=== PATIENT | female | born 1980 | race Caucasian/White ===

== ENCOUNTER 2016-11-04 06:52 | Emergency (ER) | payer MEDICAID, OTHER ==
[2016-11-04] MEDS ORDERED: LORazepam 2 MG/ML SYRINGE IV STA (07:25)
[2016-11-04] MEDS ORDERED: SODIUM CHLORIDE 0.9% 500 ML IV STA (07:26)
[2016-11-04] MEDS ORDERED: SODIUM CHLORIDE 0.9% 1,000 ML IV STA ×2 (07:26)
[2016-11-04] MEDS ORDERED: ONDANSETRON 4 MG/2 ML VIAL IVP STA (07:26)
--- NOTE | 2016-11-04 07:28 | ED ---
General Adult HPI - General Chief complaint: Seizure Stated complaint: seizure Time Seen by Provider: 11/04/16 07:10 Source: patient, EMS, RN notes reviewed, old records reviewed Mode of arrival: EMS - History of Present Illness Initial comments: This is a 28-year-old female ER for evaluation of seizure. Patient has no no medical history except for asthma but takes no daily or chronic medications. Has recently been taking [place] for her elbow pain but not in excess. Patient states she woke up and ate something this morning was feeling fine prior. Patient no recent diarrheal illness, no recent nausea vomiting or recent fevers. Patient denies headache or neck pain. Denies alcohol. At this time aside from nausea denies any complaints - Related Data Allergies Allergy/AdvReac Type Severity Reaction Status Date / Time codeine AdvReac Nausea & Verified 11/04/16 07:30 Vomiting Penicillins AdvReac Nausea & Verified 11/04/16 07:30 Vomiting Sulfa (Sulfonamide AdvReac Nausea & Verified 11/04/16 07:30 Antibiotics) Vomiting Review of Systems ROS Statement: Those systems with pertinent positive or pertinent negative responses have been documented in the HPI. ROS Other: All systems not noted in ROS Statement are negative. Past Medical History Past Medical History: Asthma History of Any Multi-Drug Resistant Organisms: None Reported Past Surgical History: No Surgical Hx Reported Past Psychological History: No Psychological Hx Reported Smoking Status: Never smoker Past Alcohol Use History: None Reported Past Drug Use History: None Reported General Exam General appearance: alert, in no apparent distress Head exam: Present: atraumatic, normocephalic, normal inspection Eye exam: Present: normal appearance, PERRL, EOMI. Absent: scleral icterus, conjunctival injection, periorbital swelling ENT exam: Present: normal exam, mucous membranes moist Neck exam: Present: normal inspection. Absent: tenderness, meningismus, lymphadenopathy Respiratory exam: Present: normal lung sounds bilaterally. Absent: respiratory distress, wheezes, rales, rhonchi, stridor Cardiovascular Exam: Present: regular rate, normal rhythm, normal heart sounds. Absent: systolic murmur, diastolic murmur, rubs, gallop, clicks GI/Abdominal exam: Present: soft, normal bowel sounds. Absent: distended, tenderness, guarding, rebound, rigid Extremities exam: Present: normal inspection, full ROM, normal capillary refill. Absent: tenderness, pedal edema, joint swelling, calf tenderness Back exam: Present: normal inspection Neurological exam: Present: alert, oriented X3, CN II-XII intact Psychiatric exam: Present: normal affect, normal mood Skin exam: Present: warm, dry, intact, normal color. Absent: rash Course Vital Signs 11/04/16 06:56 Temperature 98.3 F Pulse Rate 96 Respiratory 14 Rate Blood Pressure 134/86 O2 Sat by Pulse 97 Oximetry - Reevaluation(s) Reevaluation #1: 11/04/16 08:47 Patient without seizure activity and ER Reevaluation #2: 11/04/16 08:47 Spoke with patient counseled greater than 15 minutes. Protocol procedures, no reason for admission at this time patient has had EEG multiple CAT scans, patient will follow-up with her neurologist EKG Findings - EKG Comments: EKG Findings:: EKG shows normal sinus rhythm rate of 98, IA 142, QRS 80, QTC 469 Medical Decision Making - Medical Decision Making 36 female here for evaluation of seizure, patient did have grand mal seizure earlier today with with a postictal period, per bystanders patient's seizure was generalized with foaming at the mouth, patient also urinated herself, patient CT is negative lab work is normal, patient is follow-up with Dr. Salgado on an outpatient basis regarding headaches migraines, patient will continue follow-up with Dr. Acuna in regards to new symptoms. - Lab Data Result diagrams: 11/04/16 07:21 11/04/16 07:21 Lab Results 11/04/16 11/04/16 Range/Units 07:21 07:21 WBC 9.6 (3.8-10.6) k/uL RBC 4.87 (3.80-5.40) m/uL Hgb 14.5 (11.4-16.0) gm/dL Hct 43.4 (34.0-46.0) % MCV 89.0 (80.0-100.0) fL MCH 29.7 (25.0-35.0) pg MCHC 33.4 (31.0-37.0) g/dL RDW 12.4 (11.5-15.5) % Plt Count 248 (150-450) k/uL Neutrophils % 68 % Lymphocytes % 22 % Monocytes % 6 % Eosinophils % 2 % Basophils % 1 % Neutrophils # 6.5 (1.3-7.7) k/uL Lymphocytes # 2.1 (1.0-4.8) k/uL Monocytes # 0.6 (0-1.0) k/uL Eosinophils # 0.1 (0-0.7) k/uL Basophils # 0.1 (0-0.2) k/uL Sodium 136 L (137-145) mmol/L Potassium 4.6 (3.5-5.1) mmol/L Chloride 102 (98-107) mmol/L Carbon Dioxide 19 L (22-30) mmol/L Anion Gap 15 mmol/L BUN 11 (7-17) mg/dL Creatinine 0.46 L (0.52-1.04) mg/dL Est GFR (MDRD) Af Amer >60 (>60 ml/min/1.73 sqM) Est GFR (MDRD) Non-Af >60 (>60 ml/min/1.73 sqM) Glucose 343 H (74-99) mg/dL Calcium 9.6 (8.4-10.2) mg/dL Phosphorus 3.1 (2.5-4.5) mg/dL Magnesium 1.6 (1.6-2.3) mg/dL Total Bilirubin 0.5 (0.2-1.3) mg/dL AST 21 (14-36) U/L ALT 31 (9-52) U/L Alkaline Phosphatase 75 (38-126) U/L Total Protein 6.8 (6.3-8.2) g/dL Albumin 4.0 (3.5-5.0) g/dL Salicylates <1.0 mg/dL Acetaminophen <10.0 ug/mL Serum Alcohol <10 mg/dL - Radiology Data Radiology results: report reviewed (CT brain negative for acute disease), image reviewed Disposition Clinical Impression: New onset seizure Disposition: HOME SELF-CARE Condition: Good Instructions: New-Onset Seizure in Adults (ED) Referrals: Rivera Tripp DO [Primary Care Provider] - 1-2 days
[2016-11-04 07:46] LABS: Basophils # (A) 0.1 k/uL (0-0.2); Basophils % (A) 1 %; CH 30.4; CHCM 34.3; Eosinophils # (A) 0.1 k/uL (0-0.7); Eosinophils % (A) 2 %; HCT 43.4 % (34.0-46.0); HDW 2.76; HGB 14.5 gm/dL (11.4-16.0); Luc # (Auto) 0.26; Luc % (Auto) 3; Lymphocytes # (A) 2.1 k/uL (1.0-4.8); Lymphocytes % (A) 22 %; MCH 29.7 pg (25.0-35.0); MCHC 33.4 g/dL (31.0-37.0); Mean Platelet Volume 7.5; Monocytes # (A) 0.6 k/uL (0-1.0); Monocytes % (A) 6 %; Neutrophils # (A) 6.5 k/uL (1.3-7.7); Neutrophils % (A) 68 %; RBC 4.87 m/uL (3.80-5.40); RDW 12.4 % (11.5-15.5); WBC 9.6 k/uL (3.8-10.6); WBC (Perox) 9.91
[2016-11-04 07:58] LABS: ALT 31 U/L (9-52); AST 21 U/L (14-36); Acetaminophen <10.0 ug/mL; Alcohol <10 mg/dL; Alkaline Phosphatase 75 U/L (38-126); Anion Gap 15 mmol/L; Blood Urea Nitrogen 11 mg/dL (7-17); Calcium 9.6 mg/dL (8.4-10.2); Carbon Dioxide 19 mmol/L (22-30); Chloride 102 mmol/L (98-107); Glucose 343 mg/dL (74-99); Magnesium 1.6 mg/dL (1.6-2.3); Non-African American GFR(MDRD) >60 (>60 ml/min/1.73 sqM); Phosphorous 3.1 mg/dL (2.5-4.5); Potassium 4.6 mmol/L (3.5-5.1); Salicylate <1.0 mg/dL; Sodium 136 mmol/L (137-145); Total Bilirubin 0.5 mg/dL (0.2-1.3); Total Protein 6.8 g/dL (6.3-8.2)
--- NOTE | 2016-11-04 08:24 | CT ---
EXAMINATION TYPE: CT brain wo con DATE OF EXAM: 11/04/2016 8:08 AM COMPARISON: Prior head CT 17 August 2013 HISTORY: Seizure activity CT DLP: 1186 mGycm Automated exposure control for dose reduction was used. FINDINGS: There is no acute intracranial hemorrhage, mass effect, or midline shift identified. The ventricles and sulci are within normal limits in size. The globes are intact and the visualized sinuses are padmaja ar. IMPRESSION: No acute intracranial hemorrhage, mass effect, or midline shift is seen.
[2016-11-04 08:53] VITALS: BP 117/78; PULSE 98; RESP 18; TEMP 97.4
[2016-11-05 16:59] LABS: Hemoglobin A1C 10.8 % (4.2-6.1)
== END 2016-11-04 08:59 | disposition home or self-care (01) ==
LOC: EC 06:52
DX: G40.409 Other generalized epilepsy and epileptic syndromes, not intractable, without status epilepticus (principal)
CPT/HCPCS: 36415; 93005; 80053; 83036; 83735; 84100; 85025; 83520 ×2; 80320; 70450; 99285; 96374; 96375; 96361; J2060; J2405

== ENCOUNTER → 2016-11-13 | Outpatient (CLI) | payer MEDICAID, OTHER ==
--- NOTE | 2016-11-13 12:07 | ECHOF ---
Referral Reason:G40.909 seizures R94.31 abn ekg MEASUREMENTS -------- HEIGHT: 157.5 cm WEIGHT: 77.1 kg BP: RVIDd: 2.8 cm (< 3.3) IVSd: 1.0 cm (0.6 - 1.1) LVIDd: 4.0 cm (3.9 - 5.3) LVPWd: 1.4 cm (0.6 - 1.1) IVSs: 1.2 cm LVIDs: 3.0 cm LVPWs: 1.4 cm LA Diam: 3.6 cm (2.7 - 3.8) LAESV Index (A-L): 16.61 ml/m Ao Diam: 2.9 cm (2.0 - 3.7) AV Cusp: 1.8 cm (1.5 - 2.6) LA Diam: 3.4 cm (2.7 - 3.8) MV EXCURSION: 21.562 mm (> 18.000) MV EF SLOPE: 95 mm/s (70 - 150) EPSS: 0.6 cm MV E Camacho: 0.64 m/s MV DecT: 209 ms MV A Camacho: 0.86 m/s MV E/A Ratio: 0.74 RAP: 5.00 mmHg RVSP: 9.25 mmHg FINDINGS -------- Sinus rhythm. This was a technically good study. LV size, wall thickness and systolic function are normal, with an EF greater than 55%. The right ventricle is normal in size. Normal LA size by volume 22+/-6 ml/m2. The right atrial size is normal. There is mild aortic valve sclerosis. There is no evidence of aortic regurgitation. Mild mitral annular calcification present. Mild mitral regurgitation is present. Mild tricuspid regurgitation present. There is no evidence of pulmonary hypertension. The right ventricular systolic pressure, as measured by Doppler, is 9.25mmHg. Trace/mild (physiologic) pulmonic regurgitation. The aortic root size is normal. There is no pericardial effusion. CONCLUSIONS -------- 1. LV size, wall thickness and systolic function are normal, with an EF greater than 55%. 2. There is no pericardial effusion. 3. There is mild aortic valve sclerosis. 4. Mild mitral annular calcification present. 5. Mild mitral regurgitation is present. 6. Mild tricuspid regurgitation present. 7. There is no evidence of pulmonary hypertension. 8. The right ventricular systolic pressure, as measured by Doppler, is 9.25mmHg. 9. Trace/mild (physiologic) pulmonic regurgitation. 10. The aortic root size is normal. SHELF STOCKER: Cathy Hoskins RDCS
--- NOTE | 2016-11-13 12:26 | EST ---
DATE OF SERVICE: 11/13/2016 AGE: 36Y SEX: F HT: 72 WT: 152 lbs. Protocol Tato: X Other: Stage: III Dur. of Exercise: 7:45 *Heart Rate Blood Pressure *Rest: 96 Rest: 108/84 * *Max. Achieved: 162 Maximum BP: 197/100 85% PMHR: 155 100% PMHR: 182 *METS: 7.7 INDICATIONS: Seizure. MEDICATIONS: Baby aspirin. Patient was exercised for a total period of 7 minutes and 45 seconds. Peak heart rate of 162 was achieved. Maximum blood pressure of 197/100 mmHg was noted. Resting EKG shows normal sinus rhythm with normal ND interval and QRS duration and normal ST-T waves. No ST segment depression suggestive of ischemia is noted. No dysrhythmias are noted. FINAL IMPRESSION: This exercise test is not suggestive of ischemia. No dysrhythmias are noted. Patient's exercise tolerance is average.
--- NOTE | 2016-11-13 14:13 | US ---
EXAMINATION TYPE: US carotid duplex BILAT DATE OF EXAM: 11/13/2016 12:40 PM COMPARISON: NONE CLINICAL HISTORY: G40.909 seizures R94.31 abn ekg. EXAM MEASUREMENTS: RIGHT: Peak Systolic Velocity (PSV) cm/sec ----- Right CCA: 89.2 ----- Right ICA: 87.6 ----- Right ECA: 123.8 ICA/CCA ratio: 1.0 RIGHT: End Diastole cm/sec ----- Right CCA: 32.3 ----- Right ICA: 35.8 ----- Right ECA: 23.6 LEFT: Peak Systolic Velocity (PSV) cm/sec ----- Left CCA: 85.4 ----- Left ICA: 104.4 ----- Left ECA: 117.4 ICA/CCA ratio: 1.2 LEFT: End Diastole cm/sec ----- Left CCA: 28.5 ----- Left ICA: 41.4 ----- Left ECA: 18.8 VERTEBRALS (direction of flow): Right Vertebral: antegrade Left Vertebral: antegrade TECHNOLOGIST IMPRESSION: Tiny piece of calcified plaque left bulb. Some soft plaque noted L>R Grayscale, color Doppler, spectral Doppler imaging performed of the carotid arteries. Waveform analys is does not shows a significant stenosis of the proximal internal carotid arteries bilaterally by Dop pler criteria IMPRESSION: No hemodynamic significant stenosis of the proximal internal carotid arteries bilaterall y by Doppler criteria, and indirect measurement of carotid stenosis. Criteria for Assigning % of Stenosis / Diameter reduction (Estimation based on the indirect measurements of the internal carotid artery velocities (ICA PSV). 1. Normal (no stenosis)=ICA PSV < 125 cm/s: ratio < 2.0: ICA EDV<40 cm/s. 2. Less than 50% stenosis=ICA PSV < 125 cm/s: ratio < 2.0: ICA EDV<40 cm/s. 3. 50 to 69% stenosis=ICA PSV of 125 to 230 cm/s: ration 2.0 ? 4.0: ICA EDV 40-100 cm/s. 4. Greater than 70% stenosis to near occlusion= ICA PSV > 230 cm/s: ratio > 4.0: ICA EDV > 100 cm/s. 5. Near occlusion= ICA PSV velocities may be low or undetectable: variable ratio and ICA EDV. 6. Total occlusion=unable to detect flow.
== END | disposition home or self-care (01) ==
LOC: RADNMMAIN 10:19
PROVIDERS: ATTEND Family Medicine
DX: I08.8 Other rheumatic multiple valve diseases (principal); G40.909 Epilepsy, unspecified, not intractable, without status epilepticus
CPT/HCPCS: 93017; 93270; 93271; 93306; 93880

== ENCOUNTER → 2016-11-23 | Outpatient (CLI) | payer MEDICAID, OTHER ==
--- NOTE | 2016-11-23 21:13 | MR ---
EXAMINATION TYPE: MR brain wo/w con DATE OF EXAM: 11/23/2016 9:06 PM COMPARISON: CT brain November 04, 2016. HISTORY: Seizure TECHNIQUE: Multiplanar, multisequence images of the brain and brainstem is performed without and with IV contras t, utilizing 13 mL intravenous MultiHance . FINDINGS: Diffusion weighted images demonstrate no evidence of a recent infarct or other diffusion ab normality. There is no extra-axial fluid collection or significant white matter signal abnormality. The ventricular system and cisternal spaces are normal in size and appearance. Cavum vergae is prese nt. The brain volume is age appropriate. T2 coronal weighted images show hippocampal gyri to appear s ymmetric and felt within normal limits. Midline structures demonstrate normal morphology. The craniocervical junction appears within normal limits. Post contrast images demonstrate no abnormal enhancement. The dural venous sinuses appear pa tent. The visualized sinuses are clear and the globes are intact. IMPRESSION: No significant finding is seen to account for patient's symptoms.
== END | disposition home or self-care (01) ==
LOC: RADMRIMAIN 20:06
PROVIDERS: ATTEND Psychiatry & Neurology Neurology
DX: C71.0 Malignant neoplasm of cerebrum, except lobes and ventricles (principal); G40.009 Localization-related (focal) (partial) idiopathic epilepsy and epileptic syndromes with seizures of localized onset, not intractable, without status epilepticus
CPT/HCPCS: 70553; A9577

== ENCOUNTER 2017-04-17 09:37 | Day surgery (SDC) | payer MEDICAID, OTHER ==
[2017-04-15 09:41] VITALS: BMI 26.9
[~2017-04-17 09:37] MED LIST: LACTATED RINGERS 1,000 ML IV SCH; LIDOCAINE 1% 20 ML VIAL (10MG/ML) FOR IV START INTRADERMA PRN
[2017-04-17 09:50] VITALS: RESP 18; TEMP 97.1
[2017-04-17 10:04] LABS: Glucose,Whole Blood 128 mg/dL (75-99)
[2017-04-17] MEDS ORDERED: PROPOFOL 10 MG/ML 20 ML VIAL IV ONE (10:38)
--- NOTE | 2017-04-17 11:05 | P.GSHP ---
History of Present Illness H&P Date: 04/17/17 Chief Complaint: gi bleed This a 37-year-old female referred from Dr. Rivera Tripp. Patient rents today for colonoscopy. She's had issues with GI bleed. Past Medical History Past Medical History: Asthma, Diabetes Mellitus, Seizure Disorder Additional Past Medical History / Comment(s): NEW ONSET SEIZURE ( HAD GRAND MAL SIZURE)-11/04/16-NO OTHER EPISODES SINCE THEN. RECENT BLOOD IN STOOL History of Any Multi-Drug Resistant Organisms: None Reported Past Surgical History: Section, Tubal Ligation Additional Past Surgical History / Comment(s): COLONOSCOPY Past Anesthesia/Blood Transfusion Reactions: No Reported Reaction Past Psychological History: No Psychological Hx Reported Smoking Status: Former smoker Past Alcohol Use History: None Reported, Rare Additional Past Alcohol Use History / Comment(s): QUIT SMOKING 2001 Past Drug Use History: None Reported - Past Family History Father Family Medical History: Cancer Additional Family Medical History / Comment(s): COLON, MELANOMA Mother Family Medical History: Cancer Additional Family Medical History / Comment(s): MELANOMA, BRAIN Medications and Allergies Home Medications Medication Instructions Recorded Confirmed Type Albuterol Inhaler [Ventolin Hfa 1 - 2 puff INHALATION Q6HR PRN 04/15/17 History Inhaler] Linagliptin [Tradjenta] 5 mg PO DAILY 04/15/17 04/15/17 History Naproxen Sodium 550 mg PO DAILY PRN 04/15/17 04/15/17 History Topiramate [Topamax] 200 mg PO HS 04/15/17 04/15/17 History metFORMIN HCL [Glucophage] 1,000 mg PO HS 04/15/17 04/15/17 History metFORMIN HCL [Glucophage] 500 mg PO DAILY 04/15/17 04/15/17 History Allergies Allergy/AdvReac Type Severity Reaction Status Date / Time codeine AdvReac Nausea & Verified 04/15/17 09:32 Vomiting Penicillins AdvReac Nausea & Verified 04/15/17 09:32 Vomiting Sulfa (Sulfonamide AdvReac Nausea & Verified 04/15/17 09:32 Antibiotics) Vomiting Surgical - Exam Vital Signs Temp Pulse Resp BP Pulse Ox 97.1 F L 80 18 112/77 99 04/17/17 09:49 04/17/17 09:49 04/17/17 09:49 08/02/17 09:49 04/17/17 09:49 - General well developed, no distress - Eyes PERRL - ENT normal pinna - Neck no masses - Respiratory normal expansion - Cardiovascular Rhythm: regular - Abdomen Abdomen: soft, non tender Results - Labs Abnormal Lab Results - Last 24 Hours (Table) 04/17/17 Range/Units 09:55 POC Glucose (mg/dL) 128 H (75-99) mg/dL Assessment and Plan Plan: GI bleed. We'll perform colonoscopy.
--- NOTE | 2017-04-17 11:14 | P.OP ---
Date of Procedure: 04/17/17 Preoperative Diagnosis: GI bleed Postoperative Diagnosis: Mild diverticulosis Poor colon prep with large amount of stool Procedure(s) Performed: Colonoscopy Implants: Anesthesia: MAC Surgeon: Walter Acosta Pathology: none sent Condition: stable Disposition: PACU Indications for Procedure: Operative Findings: Description of Procedure: Patient's placed on the endoscopy table in the lateral position. She received IV sedation. Digital rectal exam was performed which revealed no abnormalities. The flexible colonoscope was then placed patient anus and passed throughout the entire colon. The the scope was placed in the right colon. There was a large amount of stool in the right colon preventing visualization of the ileocecal valve. At this point the scope was withdrawn. The view of the right colon was limited due to the large amount stool. There appeared to be no evidence of any abnormalities. The scope was then brought back the transverse colon this appeared normal however the view was limited due to the large amount stool. Scope summer back in the descending; was a few scattered diverticula. There is no evidence of any bleeding. And once again there was a large amount liquid stool. The scope was then brought back the rectum and a large amount stool prevented the visualization of the mucosa. There is no evidence of any any bleeding. The scope was then withdrawn from patient.
[2017-04-17 11:36] VITALS: BP 121/64; PULSE 72
== END 2017-04-17 11:59 | disposition home or self-care (01) ==
LOC: ORWHC2ENDO 09:37
PROVIDERS: ATTEND Surgery
DX: K57.30 Diverticulosis of large intestine without perforation or abscess without bleeding (principal); Z87.19 Personal history of other diseases of the digestive system; J45.909 Unspecified asthma, uncomplicated; E11.9 Type 2 diabetes mellitus without complications; G40.909 Epilepsy, unspecified, not intractable, without status epilepticus; Z87.891 Personal history of nicotine dependence; Z79.84 Long term (current) use of oral hypoglycemic drugs; Z79.899 Other long term (current) drug therapy; Z88.5 Allergy status to narcotic agent; Z88.0 Allergy status to penicillin; Z88.2 Allergy status to sulfonamides
CPT/HCPCS: 81025; 45378; J2704

== ENCOUNTER 2017-05-06 10:14 | Emergency (ER) | payer MEDICAID, OTHER ==
[2017-05-06] MEDS ORDERED: CLINDAMYCIN 600 MG in DEXTROSE 5% IN WATER 50 ML IVPB STA ×2 (11:10)
[2017-05-06] MEDS ORDERED: SODIUM CHLORIDE 0.9% 1,000 ML IV ONE (11:10)
[2017-05-06 11:43] LABS: Basophils # (A) 0.1 k/uL (0-0.2); Basophils % (A) 1 %; Eosinophils # (A) 0.1 k/uL (0-0.7); Eosinophils % (A) 1 %; HCT 38.8 % (34.0-46.0); HGB 12.7 gm/dL (11.4-16.0); Luc # (Auto) 0.21; Luc % (Auto) 2; Lymphocytes # (A) 1.3 k/uL (1.0-4.8); Lymphocytes % (A) 11 %; MCH 30.1 pg (25.0-35.0); MCHC 32.8 g/dL (31.0-37.0); MCV 91.6 fL (80.0-100.0); Mean Platelet Volume 8.2; Monocytes # (A) 0.6 k/uL (0-1.0); Monocytes % (A) 5 %; Neutrophils # (A) 9.8 k/uL (1.3-7.7); Neutrophils % (A) 81 %; RBC 4.23 m/uL (3.80-5.40); RDW 13.3 % (11.5-15.5); WBC 12.1 k/uL (3.8-10.6); WBC (Perox) 12.59
[2017-05-06 11:51] LABS: ALT 45 U/L (9-52); AST 24 U/L (14-36); Alkaline Phosphatase 81 U/L (38-126); Anion Gap 12 mmol/L; Blood Urea Nitrogen 16 mg/dL (7-17); Calcium 10.2 mg/dL (8.4-10.2); Carbon Dioxide 22 mmol/L (22-30); Chloride 103 mmol/L (98-107); Glucose 427 mg/dL (74-99); Non-African American GFR(MDRD) >60 (>60 ml/min/1.73 sqM); Potassium 4.7 mmol/L (3.5-5.1); Sodium 137 mmol/L (137-145); Total Bilirubin 0.4 mg/dL (0.2-1.3); Total Protein 6.9 g/dL (6.3-8.2)
--- NOTE | 2017-05-06 12:06 | ED ---
General Adult HPI - General Chief complaint: Skin/Abscess/Foreign Body Stated complaint: pain in leg Time Seen by Provider: 05/06/17 10:41 Source: patient, RN notes reviewed, old records reviewed Mode of arrival: ambulatory Limitations: no limitations - History of Present Illness Initial comments: 37-year-old female presents emergency Department chief complaint of increased pain and drainage and swelling from her incision site. Patient reports that she had a mole removed by Dr. Janine STEELE on last . Patient reports that she called her physician and he called her and an antibiotic. Patient states that she's been taking azithromycin and had the double dose yesterday and the first dose today. Patient reports that she was at work and noticed increased drainage and was concerned that this is getting worse. 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 She reports that she had a lesion removed because it was concern for skin cancer. She has a lengthy family history of melanoma. - Related Data Home Medications Medication Instructions Recorded Confirmed Albuterol Inhaler [Ventolin Hfa 1 - 2 puff INHALATION RT-Q6H PRN 04/15/17 Inhaler] Linagliptin [Tradjenta] 5 mg PO DAILY 04/15/17 05/06/17 Naproxen Sodium 550 mg PO DAILY PRN 04/15/17 05/06/17 Topiramate [Topamax] 200 mg PO HS 04/15/17 05/06/17 metFORMIN HCL [Glucophage] 1,000 mg PO HS 04/15/17 05/06/17 metFORMIN HCL [Glucophage] 500 mg PO DAILY 04/15/17 05/06/17 Azithromycin [Zithromax Z-pack] See Taper PO DIRECTED 05/06/17 05/06/17 HYDROcodone/APAP 10-325MG [Roca 1 tab PO Q6H PRN 05/06/17 05/06/17 10-325] Lidocaine 5% Oint [Xylocaine 5% 1 applic TOPICAL Q4H PRN 05/06/17 05/06/17 Oint] Previous Rx's Medication Instructions Recorded Clindamycin [Cleocin] 450 mg PO TID 10 Days 05/06/17 Allergies Allergy/AdvReac Type Severity Reaction Status Date / Time codeine AdvReac Nausea & Verified 05/06/17 10:44 Vomiting Penicillins AdvReac Nausea & Verified 05/06/17 10:44 Vomiting Sulfa (Sulfonamide AdvReac Nausea & Verified 05/06/17 10:44 Antibiotics) Vomiting tramadol AdvReac Unknown Verified 05/06/17 10:44 Review of Systems ROS Statement: Those systems with pertinent positive or pertinent negative responses have been documented in the HPI. ROS Other: All systems not noted in ROS Statement are negative. Past Medical History Past Medical History: Asthma, Diabetes Mellitus, Seizure Disorder Additional Past Medical History / Comment(s): NEW ONSET SEIZURE ( HAD GRAND MAL SIZURE)-11/04/16-NO OTHER EPISODES SINCE THEN. RECENT BLOOD IN STOOL History of Any Multi-Drug Resistant Organisms: None Reported Past Surgical History: Section, Tubal Ligation Additional Past Surgical History / Comment(s): COLONOSCOPY, mass removed right groin Past Anesthesia/Blood Transfusion Reactions: No Reported Reaction Past Psychological History: No Psychological Hx Reported Smoking Status: Former smoker Past Alcohol Use History: None Reported, Rare Past Drug Use History: None Reported - Past Family History Father Family Medical History: Cancer Additional Family Medical History / Comment(s): COLON, MELANOMA Mother Family Medical History: Cancer Additional Family Medical History / Comment(s): MELANOMA, BRAIN General Exam - General Exam Comments Initial Comments: This is a 37 year old female, no acute distress. Limitations: no limitations General appearance: alert, in no apparent distress Head exam: Present: atraumatic, normocephalic, normal inspection Eye exam: Present: normal appearance, PERRL, EOMI. Absent: scleral icterus, conjunctival injection, periorbital swelling ENT exam: Present: normal exam, mucous membranes moist Neck exam: Present: normal inspection. Absent: tenderness, meningismus, lymphadenopathy Respiratory exam: Present: normal lung sounds bilaterally. Absent: respiratory distress, wheezes, rales, rhonchi, stridor Cardiovascular Exam: Present: regular rate, normal rhythm, normal heart sounds. Absent: systolic murmur, diastolic murmur, rubs, gallop, clicks GI/Abdominal exam: Present: soft, normal bowel sounds. Absent: distended, tenderness, guarding, rebound, rigid External exam: Present: erythema (patient has a 7cm inscision over right mons pubis into inguinal ligament. Patient has purulent drainage from site. mild erythema surounding laceration extending 1cm. ). Absent: normal external exam Extremities exam: Present: normal inspection, full ROM, normal capillary refill. Absent: tenderness, pedal edema, joint swelling, calf tenderness Back exam: Present: normal inspection Neurological exam: Present: alert, oriented X3, CN II-XII intact Psychiatric exam: Present: normal affect, normal mood Skin exam: Present: warm, dry, intact, normal color. Absent: rash Course Vital Signs 05/06/17 05/06/17 10:14 13:19 Temperature 97.9 F 97.8 F Pulse Rate 117 H 88 Respiratory 18 16 Rate Blood Pressure 132/73 122/75 O2 Sat by Pulse 97 98 Oximetry Medical Decision Making - Medical Decision Making 37 year old female with incision site infection for 3 days. PAtient has had a mole removed by Dr. Hoang and patient was started on azithromycin the following day due to mild drainage. Patient reports that she was at work today, and the drainage and pain became worse. Patient has a 7 cm incision, and there is purulent drainage from some aspects of the laceration. Patient has been on Azithromycin for 2 days. Discussed Azithrromycin is not appropriate antibiotic coverage, as patient has history of MRSA. PAtient given IV fluids, and clindamycin given. Note it is noted the patient's blood sugar is elevated. She reports that she has not been taking her metformin over the past 3 days. Discussed that this is likely why she is having a worsening infection. His blood sugars have been elevated. Discussed the importance of having strict blood sugar control. Patient is given a dose of IV clindamycin in the emergency department due to patient's ALLERGIES and wanting to cover for MRSA. PAtient has been advised to follow up with Viktor and PCP, and discussed the importance of returing if symptoms progress or worsen. Patient was switched to clindamycin. - Lab Data Result diagrams: 05/06/17 11:29 05/06/17 11:29 Lab Results 05/06/17 05/06/17 Range/Units 11:29 11:29 WBC 12.1 H (3.8-10.6) k/uL RBC 4.23 (3.80-5.40) m/uL Hgb 12.7 (11.4-16.0) gm/dL Hct 38.8 (34.0-46.0) % MCV 91.6 (80.0-100.0) fL MCH 30.1 (25.0-35.0) pg MCHC 32.8 (31.0-37.0) g/dL RDW 13.3 (11.5-15.5) % Plt Count 262 (150-450) k/uL Neutrophils % 81 % Lymphocytes % 11 % Monocytes % 5 % Eosinophils % 1 % Basophils % 1 % Neutrophils # 9.8 H (1.3-7.7) k/uL Lymphocytes # 1.3 (1.0-4.8) k/uL Monocytes # 0.6 (0-1.0) k/uL Eosinophils # 0.1 (0-0.7) k/uL Basophils # 0.1 (0-0.2) k/uL Sodium 137 (137-145) mmol/L Potassium 4.7 (3.5-5.1) mmol/L Chloride 103 (98-107) mmol/L Carbon Dioxide 22 (22-30) mmol/L Anion Gap 12 mmol/L BUN 16 (7-17) mg/dL Creatinine 0.75 (0.52-1.04) mg/dL Est GFR (MDRD) Af Amer >60 (>60 ml/min/1.73 sqM) Est GFR (MDRD) Non-Af >60 (>60 ml/min/1.73 sqM) Glucose 427 H (74-99) mg/dL Calcium 10.2 (8.4-10.2) mg/dL Total Bilirubin 0.4 (0.2-1.3) mg/dL AST 24 (14-36) U/L ALT 45 (9-52) U/L Alkaline Phosphatase 81 (38-126) U/L Total Protein 6.9 (6.3-8.2) g/dL Albumin 4.0 (3.5-5.0) g/dL Disposition Clinical Impression: Cellulitis, Superficial incisional surgical site infection Disposition: HOME SELF-CARE Condition: Good Instructions: Surgical Site Infections (ED) Additional Instructions: Patient is to rest, increase fluids. Patient needs to change the dressings frequently. Completely anabiotic prescription. Return to emergency department if any alarming signs or symptoms occur. Prescriptions: Clindamycin [Cleocin] 450 mg PO TID 10 Days Referrals: Rivera Tripp DO [Primary Care Provider] - 1-2 days Time of Disposition: 13:10
[2017-05-06 13:20] VITALS: BP 122/75; PULSE 88; RESP 16; TEMP 97.8
== END 2017-05-06 13:23 | disposition home or self-care (01) ==
LOC: EC 10:14
DX: T81.4XXA Infection following a procedure, initial encounter (principal); L03.314 Cellulitis of groin; E11.65 Type 2 diabetes mellitus with hyperglycemia; G40.909 Epilepsy, unspecified, not intractable, without status epilepticus; Z87.891 Personal history of nicotine dependence; Z79.84 Long term (current) use of oral hypoglycemic drugs; Z79.899 Other long term (current) drug therapy; Z88.0 Allergy status to penicillin; Z88.2 Allergy status to sulfonamides; Z88.5 Allergy status to narcotic agent; Z86.14 Personal history of Methicillin resistant Staphylococcus aureus infection; Z80.8 Family history of malignant neoplasm of other organs or systems
CPT/HCPCS: 36415; 80053; 85025; 87040; 87070; 87077; 87186; 87205; 96361; 96365; 99284

== ENCOUNTER 2017-07-29 01:16 | Emergency (ER) | payer MEDICAID, OTHER ==
[2017-07-29 01:23] VITALS: RESP 18
[2017-07-29] MEDS ORDERED: SODIUM CHLORIDE 0.9% 500 ML IV ONE (02:05)
[2017-07-29 02:55] LABS: Basophils % (A) 0 %; CH 30.1; CHCM 33.9; Eosinophils # (A) 0.3 k/uL (0-0.7); Eosinophils % (A) 3 %; HCT 39.9 % (34.0-46.0); HDW 2.83; Luc # (Auto) 0.18; Luc % (Auto) 2; Lymphocytes # (A) 1.8 k/uL (1.0-4.8); Lymphocytes % (A) 20 %; MCHC 32.6 g/dL (31.0-37.0); MCV 89.2 fL (80.0-100.0); Monocytes # (A) 0.6 k/uL (0-1.0); Monocytes % (A) 7 %; Neutrophils # (A) 5.9 k/uL (1.3-7.7); Neutrophils % (A) 68 %; RBC 4.47 m/uL (3.80-5.40); RDW 12.7 % (11.5-15.5); WBC 8.7 k/uL (3.8-10.6); WBC (Perox) 8.88
[2017-07-29 03:04] LABS: ALT 28 U/L (9-52); AST 16 U/L (14-36); Alkaline Phosphatase 70 U/L (38-126); Anion Gap 11 mmol/L; Blood Urea Nitrogen 11 mg/dL (7-17); Calcium 9.8 mg/dL (8.4-10.2); Carbon Dioxide 18 mmol/L (22-30); Chloride 110 mmol/L (98-107); Glucose 166 mg/dL (74-99); Non-African American GFR(MDRD) >60 (>60 ml/min/1.73 sqM); Potassium 4.4 mmol/L (3.5-5.1); Sodium 139 mmol/L (137-145); Total Bilirubin 0.5 mg/dL (0.2-1.3); Total Protein 6.6 g/dL (6.3-8.2)
[2017-07-29 03:49] VITALS: BP 102/68; PULSE 94; TEMP 98.1
--- NOTE | 2017-07-29 04:15 | ED ---
Nausea/Vomiting/Diarrhea HPI - General Chief complaint: Nausea/Vomiting/Diarrhea Stated complaint: NVD Time Seen by Provider: 07/29/17 01:54 Source: patient Mode of arrival: ambulatory Limitations: no limitations - History of Present Illness Initial comments: 37-year-old female patient presents to the emergency department today for evaluation of diarrhea 3 days. The patient states that she started having watery bowel movements on Saturday. States that she has had intermittent abdominal cramping. She states that she has no appetite. States that she has had several liquidy bowel movements per day. States that occasionally she will pass gas and have bowel incontinence. She is unable to describe the stool, just states it is an odd color. She denies any nausea, vomiting, hematochezia, melena, fever, or chills with this. She states that she has no appetite and hasn't eaten however has been tolerating sports drinks. Patient denies any recent rash, shortness breath, chest pain, back pain, numbness, tingling, dizziness, weakness, hematuria, dysuria, urinary urgency, urinary frequency, headache, visual changes, or any other complaints. She denies any recent travel or sick contacts. Patient states that she was recently on antibiotics for a skin infection. States that she was intermittently taking antibiotics from April to June. - Related Data Home Medications Medication Instructions Recorded Confirmed Albuterol Inhaler [Ventolin Hfa 1 - 2 puff INHALATION RT-Q6H PRN 04/15/17 Inhaler] Linagliptin [Tradjenta] 5 mg PO DAILY 04/15/17 05/06/17 Naproxen Sodium 550 mg PO DAILY PRN 04/15/17 05/06/17 Topiramate [Topamax] 200 mg PO HS 04/15/17 05/06/17 metFORMIN HCL [Glucophage] 1,000 mg PO HS 04/15/17 05/06/17 metFORMIN HCL [Glucophage] 500 mg PO DAILY 04/15/17 05/06/17 Azithromycin [Zithromax Z-pack] See Taper PO DIRECTED 05/06/17 05/06/17 HYDROcodone/APAP 10-325MG [Fiatt 1 tab PO Q6H PRN 05/06/17 05/06/17 10-325] Lidocaine 5% Oint [Xylocaine 5% 1 applic TOPICAL Q4H PRN 05/06/17 05/06/17 Oint] Previous Rx's Medication Instructions Recorded Clindamycin [Cleocin] 450 mg PO TID 10 Days capsule 05/06/17 Allergies Allergy/AdvReac Type Severity Reaction Status Date / Time codeine AdvReac Nausea & Verified 07/29/17 01:23 Vomiting Penicillins AdvReac Nausea & Verified 07/29/17 01:23 Vomiting Sulfa (Sulfonamide AdvReac Nausea & Verified 07/29/17 01:23 Antibiotics) Vomiting tramadol AdvReac Unknown Verified 07/29/17 01:23 Review of Systems ROS Statement: Those systems with pertinent positive or pertinent negative responses have been documented in the HPI. ROS Other: All systems not noted in ROS Statement are negative. Past Medical History Past Medical History: Asthma, Diabetes Mellitus, Seizure Disorder Additional Past Medical History / Comment(s): NEW ONSET SEIZURE ( HAD GRAND MAL SIZURE)-11/04/16-NO OTHER EPISODES SINCE THEN. RECENT BLOOD IN STOOL History of Any Multi-Drug Resistant Organisms: None Reported, MRSA Date of last positivie culture/infection: 2011 MDRO Source:: Lungs Past Surgical History: Section, Tubal Ligation Additional Past Surgical History / Comment(s): COLONOSCOPY, mass removed right groin Past Anesthesia/Blood Transfusion Reactions: No Reported Reaction Past Psychological History: No Psychological Hx Reported Smoking Status: Former smoker Past Alcohol Use History: None Reported Past Drug Use History: None Reported - Past Family History Father Family Medical History: Cancer Additional Family Medical History / Comment(s): COLON, MELANOMA Mother Family Medical History: Cancer Additional Family Medical History / Comment(s): MELANOMA, BRAIN General Exam Limitations: no limitations General appearance: alert, in no apparent distress, other (This is a well- developed, well-nourished adult female patient in no acute distress. Vital signs upon presentation were temperature 99.0, pulse 90, respirations 18, blood pressure 121/77, pulse ox 100% on room air.) Eye exam: Present: normal appearance, PERRL, EOMI. Absent: scleral icterus, conjunctival injection, periorbital swelling Respiratory exam: Present: normal lung sounds bilaterally. Absent: respiratory distress, wheezes, rales, rhonchi, stridor Cardiovascular Exam: Present: regular rate, normal rhythm, normal heart sounds. Absent: systolic murmur, diastolic murmur, rubs, gallop, clicks GI/Abdominal exam: Present: soft, normal bowel sounds. Absent: distended, tenderness, guarding, rebound, rigid Neurological exam: Present: alert, oriented X3, CN II-XII intact Psychiatric exam: Present: normal affect, normal mood Skin exam: Present: warm, dry, intact, normal color. Absent: rash Course Vital Signs 07/29/17 07/29/17 07/29/17 01:19 02:31 03:47 Temperature 99.0 F 98.1 F Pulse Rate 90 86 94 Respiratory 18 18 18 Rate Blood Pressure 121/77 135/64 102/68 O2 Sat by Pulse 100 100 97 Oximetry Medical Decision Making - Medical Decision Making 37-year-old female patient presents to the emergency department today with a three-day history of diarrhea. Physical examination is unremarkable, abdomen nontender. Labs were reviewed and showed a white blood cell count of 8.7, electrolyte are stable. C. diff screen is negative. Stool has been sent for culture, white blood cells, ova, and parasites. Patient will be discharged home today with instructions to increase fluid intake. She is instructed to start a clear liquid diet and advance as tolerated. She is instructed to follow -up with her primary care physician for recheck in 1-2 days. She is instructed to return here immediately for any new, worsening, or concerning symptoms. She verbalizes understanding and agrees with this plan. - Lab Data Result diagrams: 07/29/17 02:30 07/29/17 02:30 Lab Results 07/29/17 07/29/17 07/29/17 Range/Units 02: 02:30 02:30 WBC 8.7 (3.8-10.6) k/uL RBC 4.47 (3.80-5.40) m/uL Hgb 13.0 (11.4-16.0) gm/dL Hct 39.9 (34.0-46.0) % MCV 89.2 (80.0-100.0) fL MCH 29.0 (25.0-35.0) pg MCHC 32.6 (31.0-37.0) g/dL RDW 12.7 (11.5-15.5) % Plt Count 241 (150-450) k/uL Neutrophils % 68 % Lymphocytes % 20 % Monocytes % 7 % Eosinophils % 3 % Basophils % 0 % Neutrophils # 5.9 (1.3-7.7) k/uL Lymphocytes # 1.8 (1.0-4.8) k/uL Monocytes # 0.6 (0-1.0) k/uL Eosinophils # 0.3 (0-0.7) k/uL Basophils # 0.0 (0-0.2) k/uL Sodium 139 (137-145) mmol/L Potassium 4.4 (3.5-5.1) mmol/L Chloride 110 H (98-107) mmol/L Carbon Dioxide 18 L (22-30) mmol/L Anion Gap 11 mmol/L BUN 11 (7-17) mg/dL Creatinine 0.70 (0.52-1.04) mg/dL Est GFR (MDRD) Af Amer >60 (>60 ml/min/1.73 sqM) Est GFR (MDRD) Non-Af >60 (>60 ml/min/1.73 sqM) Glucose 166 H (74-99) mg/dL Calcium 9.8 (8.4-10.2) mg/dL Total Bilirubin 0.5 (0.2-1.3) mg/dL AST 16 (14-36) U/L ALT 28 (9-52) U/L Alkaline Phosphatase 70 (38-126) U/L Total Protein 6.6 (6.3-8.2) g/dL Albumin 3.8 (3.5-5.0) g/dL C. difficile (EIA) Intrp Negative (Negative) Disposition Clinical Impression: Acute diarrhea Disposition: HOME SELF-CARE Condition: Good Instructions: Acute Diarrhea (ED) Additional Instructions: Increase fluids. Eat a bland diet. Start with clear liquids and advance as tolerated. Follow-up with your primary care physician for recheck in 1-2 days. Return here immediately for any new, worsening, or concerning symptoms. Referrals: Rivera Tripp DO [Primary Care Provider] - 1-2 days Time of Disposition: 04:15
== END 2017-07-29 04:26 | disposition home or self-care (01) ==
LOC: EC 01:16
DX: R19.7 Diarrhea, unspecified (principal); R10.9 Unspecified abdominal pain; E11.9 Type 2 diabetes mellitus without complications; Z88.0 Allergy status to penicillin; Z88.2 Allergy status to sulfonamides; Z88.5 Allergy status to narcotic agent; Z79.84 Long term (current) use of oral hypoglycemic drugs; Z79.899 Other long term (current) drug therapy; Z87.891 Personal history of nicotine dependence
CPT/HCPCS: 36415; 80053; 85025; 87045; 87046; 87324; 87328; 87329; 89055; 96360; 99284

== ENCOUNTER → 2017-12-13 | Outpatient (CLI) | payer OTHER ==
--- NOTE | 2017-12-16 07:56 | MM ---
Reason for exam: screening (asymptomatic). Baseline mammogram. History: Family history of breast cancer in maternal grandmother at age 50. Physical Findings: Nurse did not find any significant physical abnormalities on exam. MG Screening Mammo w CAD Bilateral CC and MLO view(s) were taken. There are scattered fibroglandular densities. Benign calcifications. There is no discrete abnormality. These results were verbally communicated with the patient and result sheet given to the patient on 12/13/17. ASSESSMENT: Benign, BI-RAD 2 RECOMMENDATION: Routine screening mammogram of both breasts in 1 year.
== END ==
LOC: RADMAMWWP 12:54
PROVIDERS: ATTEND Family Medicine
DX: Z12.31 Encounter for screening mammogram for malignant neoplasm of breast (principal)
CPT/HCPCS: 77067

== ENCOUNTER 2018-01-13 21:29 | Observation (INO) | payer MEDICAID, OTHER ==
--- NOTE | 2018-01-13 21:59 | XR ---
EXAMINATION TYPE: XR chest 2V DATE OF EXAM: 01/13/2018 COMPARISON: Chest x-ray January 29, 2017 HISTORY: Cough and shortness of breath TECHNIQUE: Frontal and lateral views of the chest are obtained. FINDINGS: Low lung volumes are redemonstrated. There is no focal air space opacity, pleural effusion , or pneumothorax seen. The cardiac silhouette size is within normal limits. The osseous structure s are intact. IMPRESSION: No acute cardiopulmonary process. No significant change from prior.
[2018-01-13] MEDS ORDERED: SODIUM CHLORIDE 0.9% 500 ML IV ONE (23:18)
[2018-01-13] MEDS ORDERED: KETOROLAC 30 MG/ML 1 ML VIAL IVP STA (23:18)
--- NOTE | 2018-01-13 23:23 | ED ---
Chest Pain HPI - General Chief Complaint: Chest Pain Stated Complaint: chest pain Time Seen by Provider: 01/13/18 22:56 Source: patient Mode of arrival: wheelchair Limitations: physical limitation - History of Present Illness Initial Comments: 37-year-old female patient percents to the emergency department today for complaints of left-sided chest pain and left upper back pain. Patient states that this started 2-3 days ago. States it has been intermittent however today has been more constant and severe. Patient denies any shortness of breath, sweats, cough, congestion, sputum production, dizziness, or weakness with this. States that she has been mildly nauseated and has had no appetite today. Patient denies any history of similar symptoms. States that she does have a family history of heart problems. Denies smoking. Denies any recent travel. She is reporting some left calf pain 2 days. Denies any swelling or redness to the leg. Patient denies any recent rash, fever, chills, abdominal pain, diarrhea, constipation, back pain, numbness, tingling, hematuria, dysuria, urinary urgency, urinary frequency, headache, visual changes, or any other complaints. - Related Data Home Medications Medication Instructions Recorded Confirmed Albuterol Inhaler [Ventolin Hfa 1 - 2 puff INHALATION RT-Q6H PRN 04/15/17 Inhaler] Propranolol HCl 40 mg PO BID 01/13/18 01/13/18 SUMAtriptan SUCCINATE [Imitrex] 100 mg PO DAILY PRN 01/13/18 01/13/18 Topiramate [Topiramate ER] 200 mg PO BID 01/13/18 01/13/18 sitaGLIPtin [Januvia] 100 mg PO DAILY 01/13/18 01/13/18 Allergies Allergy/AdvReac Type Severity Reaction Status Date / Time codeine AdvReac Nausea & Verified 01/13/18 22:58 Vomiting Penicillins AdvReac Nausea & Verified 01/13/18 22:58 Vomiting Sulfa (Sulfonamide AdvReac Nausea & Verified 01/13/18 22:58 Antibiotics) Vomiting tramadol AdvReac Unknown Verified 01/13/18 22:58 Review of Systems ROS Statement: Those systems with pertinent positive or pertinent negative responses have been documented in the HPI. ROS Other: All systems not noted in ROS Statement are negative. EKG Findings - EKG Comments: EKG Findings:: EKG obtained at 2140 shows normal sinus rhythm with a ventricular rate of 98, P return to the 136, QRS duration 74, QT 346, QTc 441. No evidence of ST elevation or depression. Past Medical History Past Medical History: Asthma, Diabetes Mellitus, Seizure Disorder Additional Past Medical History / Comment(s): NEW ONSET SEIZURE ( HAD GRAND MAL SIZURE)-11/04/16-NO OTHER EPISODES SINCE THEN. RECENT BLOOD IN STOOL, History of Any Multi-Drug Resistant Organisms: None Reported, MRSA Date of last positivie culture/infection: 2011 MDRO Source:: Lungs Past Surgical History: Section, Tubal Ligation Additional Past Surgical History / Comment(s): COLONOSCOPY, mass removed right groin, Past Anesthesia/Blood Transfusion Reactions: No Reported Reaction Past Psychological History: No Psychological Hx Reported Smoking Status: Former smoker Past Alcohol Use History: None Reported Past Drug Use History: None Reported - Past Family History Father Family Medical History: Cancer Additional Family Medical History / Comment(s): COLON, MELANOMA Mother Family Medical History: Cancer Additional Family Medical History / Comment(s): MELANOMA, BRAIN General Exam Limitations: physical limitation General appearance: alert, in no apparent distress, other (This is a well- developed, well-nourished adult female patient in no acute distress. Vital signs upon presentation are temperature 99.2F, pulse 99, respirations 18, blood pressure 131/89, pulse ox 99% on room air.) Eye exam: Present: normal appearance, PERRL, EOMI. Absent: scleral icterus, conjunctival injection, periorbital swelling ENT exam: Present: normal exam, normal oropharynx, mucous membranes moist Respiratory exam: Present: normal lung sounds bilaterally, chest wall tenderness (Left anterior chest wall). Absent: respiratory distress, wheezes, rales, rhonchi, stridor Cardiovascular Exam: Present: regular rate, normal rhythm, normal heart sounds. Absent: systolic murmur, diastolic murmur, rubs, gallop, clicks GI/Abdominal exam: Present: soft, normal bowel sounds. Absent: distended, tenderness, guarding, rebound, rigid Neurological exam: Present: alert, oriented X3, CN II-XII intact Psychiatric exam: Present: normal affect, normal mood Skin exam: Present: warm, dry, intact, normal color. Absent: rash Course Vital Signs 01/13/18 01/13/18 01/13/18 21:30 22:34 23:00 Temperature 99.2 F Pulse Rate 99 82 82 Respiratory 18 16 16 Rate Blood Pressure 131/89 119/73 123/73 O2 Sat by Pulse 99 98 99 Oximetry 01/14/18 00:25 Temperature Pulse Rate 85 Respiratory 16 Rate Blood Pressure 129/78 O2 Sat by Pulse 99 Oximetry Chest Pain MDM - MDM RADIOLOGY: Two-view x-ray of the chest shows low lung volumes are redemonstrated. There is no focal airspace opacity, pleural effusion, or pneumothorax. The cardiac silhouette size is within normal limits. The osseous structures are intact. Impression by Dr. Figueroa shows no acute cardiopulmonary process. No significant change from prior. MDM: 37-year-old female patient presented to the emergency department today for complaints of left-sided chest pain and upper back pain. Physical examination was unremarkable. EKG showed normal sinus rhythm. Patient does have a history of diabetes and did exhibit hyperglycemia with evidence of metabolic acidosis. Given this and her chest pain we will admit to the hospital for hydration and repeat troponins. Patient will be admitted to Dr. Dominguez. Disposition Clinical Impression: Chest pain, Metabolic acidosis, Hyperglycemia Disposition: ADMITTED IP TO THIS HOSP Condition: Serious Referrals: Rivera Tripp DO [Primary Care Provider] - 1-2 days Decision to Admit Reason: Admit from EC Decision Date: 01/14/18 Decision Time: 04:11
[2018-01-13 23:32] LABS: Basophils % (A) 0 %; Eosinophils # (A) 0.2 k/uL (0-0.7); Eosinophils % (A) 2 %; HCT 37.7 % (34.0-46.0); HGB 12.9 gm/dL (11.4-16.0); Lymphocytes # (A) 2.5 k/uL (1.0-4.8); Lymphocytes % (A) 22 %; MCH 28.7 pg (25.0-35.0); MCHC 34.3 g/dL (31.0-37.0); MCV 83.6 fL (80.0-100.0); Mean Platelet Volume 8.1; Monocytes # (A) 0.6 k/uL (0-1.0); Monocytes % (A) 6 %; Neutrophils # (A) 7.5 k/uL (1.3-7.7); Neutrophils % (A) 68 %; Platelet Count 242 k/uL (150-450)
[2018-01-13 23:43] LABS: ALT 23 U/L (9-52); AST 14 U/L (14-36); Albumin 4.4 g/dL (3.5-5.0); Alkaline Phosphatase 82 U/L (38-126); Anion Gap 14 mmol/L; Blood Urea Nitrogen 16 mg/dL (7-17); Calcium 10.1 mg/dL (8.4-10.2); Carbon Dioxide 18 mmol/L (22-30); Chloride 106 mmol/L (98-107); Glucose 339 mg/dL (74-99); Magnesium 1.8 mg/dL (1.6-2.3); Potassium 4.2 mmol/L (3.5-5.1); Sodium 138 mmol/L (137-145); Total Bilirubin 0.3 mg/dL (0.2-1.3); Total Protein 7.2 g/dL (6.3-8.2)
[2018-01-13 23:54] LABS: D-Dimer 0.46 mg/L FEU (<0.60); Partial Thromboplastin Time 22.4 sec (22.0-30.0); Prothrombin Time 9.6 sec (9.0-12.0)
[2018-01-14] LABS: Creatine Kinase 121 U/L (30-135)
[2018-01-14 00:12] LABS: Creatine Kinase MB 1.3 ng/mL (0.0-2.4); Troponin I <0.012 ng/mL (0.000-0.034)
[2018-01-14] MEDS ORDERED: SODIUM CHLORIDE 0.9% 500 ML IV ONE (00:46)
[2018-01-14] MEDS ORDERED: INSULIN REGULAR 100 UNIT/ML VIAL SQ STA (00:47)
[2018-01-14 01:11] LABS: Glucose,Whole Blood 336 mg/dL (75-99)
[2018-01-14] MEDS: SODIUM CHLORIDE 0.9% 1,000 ML IV ONE ×2 (01:12→01:13)
[2018-01-14 01:37] LABS: Appearance,Urine Clear (Clear); Bilirubin,Urine Negative (Negative); Blood,Urine Negative (Negative); Budding Yeast,Urine Few /hpf; Color,Urine Light Yellow; Glucose,Urine (UA) 4+ (Negative); Ketones,Urine Negative (Negative); Leukocyte Esterase,Urine Small (Negative); Nitrite,Urine Negative (Negative); PH, Urine 5.5 (5.0-8.0); Protein,Urine Negative (Negative); RBC,Urine 4 /hpf (0-5); Squamous Epithelial Cell,Urine 4 /hpf (0-4); Urobilinogen,Urine <2.0 mg/dL (<2.0); WBC,Urine 8 /hpf (0-5)
[2018-01-14 02:44] LABS: Glucose,Whole Blood 234 mg/dL (75-99)
[2018-01-14] MEDS ORDERED: NALOXONE 0.4 MG/ML 1 ML VIAL IV PRN (04:09)
[2018-01-14] MEDS ORDERED: ALBUTEROL NEBULIZED 2.5 MG/3 ML INHALATION PRN (04:13)
[2018-01-14] MEDS ORDERED: SUMAtriptan SUCCINATE 50 MG TAB PO PRN (04:13)
[2018-01-14] MEDS: SODIUM CHLORIDE 0.9% 1,000 ML IV SCH ×2 (05:39→17:42)
[2018-01-14 05:44] LABS: Glucose,Whole Blood 148 mg/dL (75-99)
[2018-01-14 08:19] LABS: Glucose,Whole Blood 194 mg/dL (75-99)
[2018-01-14] MEDS: LINAGLIPTIN 5 MG TABLET PO SCH (10:05)
[2018-01-14] MEDS: PROPRANOLOL 40 MG TAB PO SCH ×2 (10:05→20:48)
[2018-01-14] MEDS: TOPIRAMATE 100 MG TAB PO SCH ×2 (10:07→20:30)
--- NOTE | 2018-01-14 14:54 | P.HPIM ---
History of Present Illness H&P Date: 01/14/18 Chief Complaint: Chest pain This is a 37-year-old female patient of Dr. Tripp and Dr. Cedeno with past medical history of mild intermittent asthma, diabetes mellitus type 2 , seizure disorder recently diagnosed in October 2016, plantar fasciitis. Patient complains of chest pain is going on and off for a few days. It starts in her mid chest and radiates to the left side and also she has pain in her left back area in the thoracic area. 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 She sometimes has it and it increases while she is sitting. For the last couple of days she has felt off like her sugars out of control. She does state she has started a new job yesterday. She came into [facility] emergency center for evaluation. EKG was a sinus rhythm with nonspecific ST changes. Troponins have been negative on 3 draws. Patient to be placed on the observation unit and cardiology consult. Review of Systems All systems: negative Constitutional: Denies chills, Denies fever Eyes: denies blurred vision, denies pain Ears, nose, mouth and throat: Denies headache, Denies sore throat Cardiovascular: Reports chest pain, Denies decreased exercise tolerance, Denies dyspnea on exertion, Denies leg edema, Denies shortness of breath Respiratory: Denies cough, Denies cough with sputum, Denies dyspnea, Denies excessive sputum, Denies hemoptysis, Denies wheezing Gastrointestinal: Denies abdominal pain, Denies diarrhea, Denies nausea, Denies vomiting Genitourinary: Denies dysuria, Denies hematuria Musculoskeletal: Denies myalgias Integumentary: Denies pruritus, Denies rash Neurological: Denies numbness, Denies weakness Psychiatric: Denies anxiety, Denies depression Endocrine: Denies fatigue, Denies weight change Past Medical History Past Medical History: Asthma, Diabetes Mellitus, GI Bleed, Seizure Disorder Additional Past Medical History / Comment(s): NIDDM type II, [place] seizure once in 2016, lower GI bleed, mild diverticular dx, PCOS, bronchitis, pneumonia , migraines, allergic rhinitis. History of Any Multi-Drug Resistant Organisms: None Reported, MRSA Date of last positivie culture/infection: 2011 MDRO Source:: Lungs Past Surgical History: Section, Tubal Ligation Additional Past Surgical History / Comment(s): colonoscopies, R groin mole removed then resected d/t abnormal cells-bening. Past Anesthesia/Blood Transfusion Reactions: No Reported Reaction Smoking Status: Former smoker Additional Past Alcohol Use History / Comment(s): Patient is a lifelong nonsmoker. She denies any marijuana or street drug use. She drink alcohol rarely. She lives at home and has 3 children under the age of 19. She is a single parent. - Past Family History Father Family Medical History: Cancer Additional Family Medical History / Comment(s): COLON, MELANOMA AND NOW BRAIN METS. FATHER IS 68 YRS OLD. Mother Family Medical History: Cancer, Dialysis Additional Family Medical History / Comment(s): MELANOMA THAT METASTASIZED TO THE BRAIN- FROM AT AGE 49 YRS. Mother had an ME at age 34. Brother(s) Additional Family Medical History / Comment(s): Patient has one half-brother and one full brother with no major medical problems. Patient has 1 sister with no major medical problems. Daughter(s) Additional Family Medical History / Comment(s): Patient has 2 daughters and her youngest daughter has history of seizure disorder. Patient has one son with no major medical problems. Medications and Allergies Home Medications Medication Instructions Recorded Confirmed Type Albuterol Inhaler [Ventolin Hfa 1 - 2 puff INHALATION RT-Q6H PRN 04/15/17 History Inhaler] Propranolol HCl 40 mg PO BID 01/13/18 01/13/18 History SUMAtriptan SUCCINATE [Imitrex] 100 mg PO DAILY PRN 01/13/18 01/13/18 History Topiramate [Topiramate ER] 200 mg PO BID 01/13/18 01/13/18 History sitaGLIPtin [Januvia] 100 mg PO DAILY 01/13/18 01/13/18 History Allergies Allergy/AdvReac Type Severity Reaction Status Date / Time codeine AdvReac Nausea & Verified 01/13/18 22:58 Vomiting Penicillins AdvReac Nausea & Verified 01/13/18 22:58 Vomiting Sulfa (Sulfonamide AdvReac Nausea & Verified 01/13/18 22:58 Antibiotics) Vomiting tramadol AdvReac Unknown Verified 01/13/18 22:58 Physical Exam Vitals: Vital Signs Temp Pulse Resp BP Pulse Ox 01/14/18 13:56 98.6 F 81 16 154/91 97 01/14/18 12:49 68 16 113/68 97 01/14/18 10:07 85 18 127/79 99 01/14/18 07:15 81 19 118/77 98 01/14/18 05:25 75 16 99/62 97 01/14/18 04:00 76 16 104/63 99 01/14/18 00:25 85 16 129/78 99 01/13/18 23:00 82 16 123/73 99 01/13/18 22:34 82 16 119/73 98 01/13/18 21:30 99.2 F 99 18 131/89 99 Intake and Output 01/13/18 01/14/18 01/14/18 22:59 06:59 14:59 Other: Weight 68.039 kg - Constitutional General appearance: average body habitus, cooperative, no acute distress - EENT Eyes: PERRLA, normal appearance ENT: hearing grossly normal - Neck Neck: no lymphadenopathy, normal ROM, no rigidity, no stridor, no thyromegaly - Respiratory Respiratory: bilateral: CTA, negative: diminished, dullness, rales, rhonchi, wheezing, prolonged expiration, prolonged inspiration - Cardiovascular Rhythm: regular Heart sounds: normal: S1, S2 Abnormal Heart Sounds: no systolic murmur, no diastolic murmur, no rub - Gastrointestinal General gastrointestinal: no distended, normal bowel sounds, soft, no tenderness - Integumentary Integumentary: no cellulitis, no rash - Neurologic Neurologic: CNII-XII intact - Musculoskeletal Musculoskeletal: no generalized weakness, strength equal bilaterally, no right sided weakness, no left sided weakness - Psychiatric Psychiatric: A&O x's 3, appropriate affect, intact judgment & insight Results CBC & Chem 7: 01/13/18 23:22 01/13/18 23:22 Labs: Abnormal Lab Results - Last 24 Hours (Table) 01/13/18 01/13/18 01/14/18 Range/Units 23:22 23:22 01:03 WBC 11.0 H (3.8-10.6) k/uL Carbon Dioxide 18 L (22-30) mmol/L Glucose 339 H (74-99) mg/dL POC Glucose (mg/dL) (75-99) mg/dL Urine Glucose (UA) 4+ H (Negative) Ur Leukocyte Esterase Small H (Negative) Urine WBC 8 H (0-5) /hpf Urine Yeast (Budding) Few H (None) /hpf 01/14/18 01/14/18 01/14/18 Range/Units 01:10 02:42 05:42 WBC (3.8-10.6) k/uL Carbon Dioxide (22-30) mmol/L Glucose (74-99) mg/dL POC Glucose (mg/dL) 336 H 234 H 148 H (75-99) mg/dL Urine Glucose (UA) (Negative) Ur Leukocyte Esterase (Negative) Urine WBC (0-5) /hpf Urine Yeast (Budding) (None) /hpf 01/14/18 Range/Units 08:17 WBC (3.8-10.6) k/uL Carbon Dioxide (22-30) mmol/L Glucose (74-99) mg/dL POC Glucose (mg/dL) 194 H (75-99) mg/dL Urine Glucose (UA) (Negative) Ur Leukocyte Esterase (Negative) Urine WBC (0-5) /hpf Urine Yeast (Budding) (None) /hpf Thrombosis Risk Factor Assmnt - DVT/VTE Prophylaxis DVT/VTE Prophylaxis: Pharmacologic Prophylaxis ordered - Choose All That Apply Any of the Below Risk Factors Present?: Yes Each Factor Represents 1 point: Obesity (BMI >25) Other Risk Factors: No Other congenital or acquired thrombophilia - If yes, enter type in comment: No Thrombosis Risk Factor Assessment Total Risk Factor Score: 1 Thrombosis Risk Factor Assessment Level: Low Risk Assessment and Plan Plan: 1. Chest pain with nonspecific ST changes in a patient with history of diabetes and family history of mother with ME at age 34. All troponins have been negative. Echocardiogram ordered. Cardiology consult.. 2. Mild intermittent asthma, stable without exacerbation. Continue albuterol nebulizer as needed. 3. Seizure disorder. Continue Topamax 200 mg twice daily. 4. Diabetes mellitus type 2. Patient is on Januvia 100 mg daily which will be continued. 5. History of chronic headaches. Patient is on Imitrex and propranolol. 6. DVT prophylaxis. FAITH hose and ambulation. 7. GI prophylaxis. Protonix. Patient placed on the observation unit. Discharge plan: Return home tomorrow Impression and plan of care have been directed as dictated by the signing physician. Sheri Convery nurse practitioner acting as scribe for signing physician.
[2018-01-14 16:14] LABS: Hemoglobin A1C 9.6 % (4.0-6.0)
[2018-01-14 17:28] LABS: Glucose,Whole Blood 240 mg/dL (75-99)
[2018-01-14] MEDS ORDERED: IBUPROFEN 800 MG TAB PO PRN (19:32)
[2018-01-14 20:39] LABS: Glucose,Whole Blood 301 mg/dL (75-99)
[2018-01-14] MEDS: INSULIN ASPART 100 UNIT/ML 1 ML 10 ML VIAL SQ SCH (20:49)
[2018-01-14] MEDS: NAPROXEN 250 MG TAB PO SCH (21:30)
[2018-01-15 07:16] LABS: Glucose,Whole Blood 240 mg/dL (75-99)
[2018-01-15 07:52] LABS: Basophils # (A) 0.1 k/uL (0-0.2); Basophils % (A) 1 %; Eosinophils # (A) 0.2 k/uL (0-0.7); Eosinophils % (A) 3 %; HCT 36.9 % (34.0-46.0); HGB 12.2 gm/dL (11.4-16.0); Lymphocytes # (A) 1.8 k/uL (1.0-4.8); Lymphocytes % (A) 31 %; MCH 29.4 pg (25.0-35.0); MCHC 33.1 g/dL (31.0-37.0); Mean Platelet Volume 8.1; Monocytes # (A) 0.5 k/uL (0-1.0); Monocytes % (A) 8 %; Neutrophils # (A) 3.3 k/uL (1.3-7.7); Neutrophils % (A) 55 %; Platelet Count 209 k/uL (150-450); RBC 4.15 m/uL (3.80-5.40)
[2018-01-15 08:10] LABS: Anion Gap 11 mmol/L; Blood Urea Nitrogen 11 mg/dL (7-17); Calcium 9.4 mg/dL (8.4-10.2); Carbon Dioxide 17 mmol/L (22-30); Chloride 111 mmol/L (98-107); Glucose 295 mg/dL (74-99); Potassium 4.7 mmol/L (3.5-5.1); Sodium 139 mmol/L (137-145)
--- NOTE | 2018-01-15 09:52 | ECHOF ---
Referral Reason:lvf MEASUREMENTS -------- HEIGHT: 157.5 cm WEIGHT: 68.0 kg BP: 154/91 RVIDd: 3.0 cm (< 3.3) IVSd: 0.9 cm (0.6 - 1.1) LVIDd: 4.7 cm (3.9 - 5.3) LVPWd: 0.9 cm (0.6 - 1.1) IVSs: 1.3 cm LVIDs: 3.1 cm LVPWs: 1.6 cm LA Diam: 3.9 cm (2.7 - 3.8) LAESV Index (A-L): 24.92 ml/m Ao Diam: 3.0 cm (2.0 - 3.7) AV Cusp: 1.9 cm (1.5 - 2.6) MV EXCURSION: 19.132 mm (> 18.000) MV EF SLOPE: 142 mm/s (70 - 150) EPSS: 0.7 cm MV E Camacho: 0.96 m/s MV DecT: 187 ms MV A Camacho: 0.78 m/s MV E/A Ratio: 1.23 FINDINGS -------- Sinus rhythm. This was a technically excellent study. The left ventricular size is normal. Left ventricular wall thickness is normal. Overall left vent ricular systolic function is normal with, an EF between 60 - 65 %. The right ventricle is normal in size. Normal LA size by volume 22+/-6 ml/m2. The right atrium is normal in size. The aortic valve is trileaflet and appears structurally normal. Mild mitral regurgitation is present. The tricuspid valve appears structurally normal. There is no pulmonic regurgitation present. The aortic root size is normal. Normal inferior vena cava with normal inspiratory collapse consistent with estimated right atrial pre ssure of 5 mmHg. There is no pericardial effusion. CONCLUSIONS -------- 1. Sinus rhythm. 2. This was a technically excellent study. 3. The left ventricular size is normal. 4. Left ventricular wall thickness is normal. 5. Overall left ventricular systolic function is normal with, an EF between 60 - 65 %. 6. The right ventricle is normal in size. 7. Normal LA size by volume 22+/-6 ml/m2. 8. The right atrium is normal in size. 9. The aortic valve is trileaflet and appears structurally normal. 10. Mild mitral regurgitation is present. 11. The tricuspid valve appears structurally normal. 12. There is no pulmonic regurgitation present. 13. The aortic root size is normal. 14. Normal inferior vena cava with normal inspiratory collapse consistent with estimated right atrial pressure of 5 mmHg. 15. There is no pericardial effusion. NETWORK ASSOCIATE: Josie Caal RDCS
[2018-01-15] MEDS: INSULIN ASPART 100 UNIT/ML 1 ML 10 ML VIAL SQ SCH ×4 (09:54→22:11)
[2018-01-15 10:01] VITALS: BMI 29.5
--- NOTE | 2018-01-15 10:07 | P.CRDCN ---
History of Present Illness Consult date: 01/15/18 History of present illness: Mrs. Gilbert is a pleasant 37-year-old female past medical history significant for asthma, diabetes mellitus and migraines. She denies history of coronary artery disease, hypertension or dyslipidemia. We have been asked to see her for chest pain. She states for the last 4 days she has been feeling a pain in her chest that starts on the right side and radiates across to the left. There is radiation through to the left upper back with some tingling noted in her left hand. The symptoms have been intermittent in nature for the last 4 days with progressive intensity. She denies shortness of breath, dizziness, palpitations, nausea, vomiting or diaphoresis. No specific aggravating or alleviating factors she can verbalize. EKG reveals sinus mechanism with non-specific T-wave abnormalities that are consistent with old EKG. Telemetry tracings have been unremarkable. Chest xray is negative for an acute cardiopulmonary process. Laboratory data reviewed, hemoglobin 12.2, platelets 219, sodium 139, potassium 4.7, creatinine 0.59, magnesium 1.8, cardiac enzymes negative 3. Current medications include [place], Januvia, Topamax, Imitrex, propanolol and albuterol. Most recent echocardiogram performed October 2016 is negative for stress- induced cardiac ischemia. Most recent echocardiogram performed October 2016 revealed preserved left ventricular systolic function with ejection fraction 55%. Review of Systems At the time of my exam: CONSTITUTIONAL: Denies fever. Denies chills. EYES: Denies blurred vision. Denies vision changes. Denies eye pain. EARS, NOSE, MOUTH & THROAT: Denies headache. Denies sore throat. Denies ear pain. CARDIOVASCULAR: Denies chest pain. Denies shortness of breath. Denies orthopnea. Denies PND. Denies palpitations. RESPIRATORY: Denies cough. GASTROINTESTINAL: Denies abdominal pain. Denies diarrhea. Denies constipation. Denies nausea. Denies vomiting. MUSCULOSKELETAL: Denies myalgias. INTEGUMENTARY: Denies pruitis. Denies rash. NEUROLOGIC: Denies numbness. Denies tingling. Denies weakness. PSYCHIATRIC: Denies anxiety. Denies depression. ENDOCRINE: Denies fatigue. Denies weight change. Denies polydipsia. Denies polyurina. GENITOURINARY: Denies burning, hematuria or urgency with micturation. HEMATOLOGIC: Denies history of anemia. Denies bleeding. Past Medical History Past Medical History: Asthma, Diabetes Mellitus, GI Bleed, Seizure Disorder Additional Past Medical History / Comment(s): NIDDM type II, [place] seizure once in 2017, lower GI bleed, mild diverticular dx, PCOS, bronchitis, pneumonia , migraines, allergic rhinitis. History of Any Multi-Drug Resistant Organisms: None Reported, MRSA Date of last positivie culture/infection: 2011 MDRO Source:: Lungs Past Surgical History: Section, Tubal Ligation Additional Past Surgical History / Comment(s): colonoscopies, R groin mole removed then resected d/t abnormal cells-bening. Past Anesthesia/Blood Transfusion Reactions: No Reported Reaction Smoking Status: Former smoker Additional Past Alcohol Use History / Comment(s): Patient is a lifelong nonsmoker. She denies any marijuana or street drug use. She drink alcohol rarely. She lives at home and has 3 children under the age of 19. She is a single parent. - Past Family History Father Family Medical History: Cancer Additional Family Medical History / Comment(s): COLON, MELANOMA AND NOW BRAIN METS. FATHER IS 68 YRS OLD. Mother Family Medical History: Cancer, Dialysis Additional Family Medical History / Comment(s): MELANOMA THAT METASTASIZED TO THE BRAIN- FROM AT AGE 49 YRS. Mother had an NH at age 34. Brother(s) Additional Family Medical History / Comment(s): Patient has one half-brother and one full brother with no major medical problems. Patient has 1 sister with no major medical problems. Daughter(s) Additional Family Medical History / Comment(s): Patient has 2 daughters and her youngest daughter has history of seizure disorder. Patient has one son with no major medical problems. Medications and Allergies Home Medications Medication Instructions Recorded Confirmed Type Albuterol Inhaler [Ventolin Hfa 1 - 2 puff INHALATION RT-Q6H PRN 04/15/17 History Inhaler] Propranolol HCl 40 mg PO BID 01/13/18 01/13/18 History SUMAtriptan SUCCINATE [Imitrex] 100 mg PO DAILY PRN 01/13/18 01/13/18 History Topiramate [Topiramate ER] 200 mg PO BID 01/13/18 01/13/18 History sitaGLIPtin [Januvia] 100 mg PO DAILY 01/13/18 01/13/18 History HYDROcodone/APAP 10-325MG [[place] 1 tab PO Q6HR PRN 01/14/18 01/14/18 History 10-325] Allergies Allergy/AdvReac Type Severity Reaction Status Date / Time codeine AdvReac Nausea & Verified 01/13/18 22:58 Vomiting Penicillins AdvReac Nausea & Verified 01/13/18 22:58 Vomiting Sulfa (Sulfonamide AdvReac Nausea & Verified 01/13/18 22:58 Antibiotics) Vomiting tramadol AdvReac Unknown Verified 01/13/18 22:58 Physical Exam Vitals: Vital Signs Temp Pulse Pulse Resp BP BP Pulse Ox 01/15/18 07:55 97.9 F 74 16 101/58 99 01/15/18 04:00 98.1 F 70 16 110/64 98 01/14/18 23:54 16 01/14/18 23:44 98.4 F 75 16 119/74 97 01/14/18 20:00 16 01/14/18 19:36 97.7 F 85 16 131/81 98 01/14/18 14:56 98.3 F 76 18 141/68 99 01/14/18 13:56 98.6 F 81 16 154/91 97 01/14/18 12:49 68 16 113/68 97 01/14/18 10:07 85 18 127/79 99 Intake and Output 01/14/18 01/15/18 01/15/18 22:59 06:59 14:59 Intake Total 660 Balance 660 Intake: Oral 660 Other: # Voids 1 Blood pressure 101/58 heart rate 74 afebrile maintaining oxygen saturation on room air GENERAL: This is a 37-year-old female in no apparent distress at the time of my examination. HEENT: Head is atraumatic, normocephalic. Pupils are equal, round. Sclerae anicteric. Conjunctivae are clear. Mucous membranes of the mouth are moist. Neck is supple. There is no jugular venous distention. No carotid bruit is heard. LUNGS: Clear to auscultation no wheezes, rales or rhonchi. No chest wall tenderness is noted on palpation or with deep breathing. HEART: Regular rate and rhythm without murmurs, rubs or gallops. S1 and S2 heard. ABDOMEN: Soft, nontender. Bowel sounds are heard. No organomegaly noted. EXTREMITIES: No evidence of peripheral edema and no calf tenderness noted. VASCULAR: Radial and dorsalis pedis pulses palpated, no evidence of clubbing. NEUROLOGIC: Patient is awake, alert and oriented x3. Results 01/15/18 07:24 01/15/18 07:24 Cardiac Enzymes 01/14/18 Range/Units 11:23 Troponin I <0.012 (0.000-0.034) ng/mL CBC 01/15/18 Range/Units 07:24 WBC 6.0 (3.8-10.6) k/uL RBC 4.15 (3.80-5.40) m/uL Hgb 12.2 (11.4-16.0) gm/dL Hct 36.9 (34.0-46.0) % Plt Count 209 (150-450) k/uL Current Medications Generic Name Dose Route Start Last Admin Trade Name Freq PRN Reason Stop Dose Admin Albuterol Sulfate 2.5 mg 01/14/18 04:13 Ventolin Nebulized INHALATION RT-Q6H PRN Shortness Of Breath Sodium Chloride 1,000 mls @ 75 mls/hr 01/14/18 04:15 01/14/18 17:42 Saline 0.9% IV 75 mls/hr .[id number] SUSAN Administration Ibuprofen 800 mg 01/14/18 19:32 Motrin PO QID PRN Pain Insulin Aspart 0 unit 01/14/18 21:00 01/14/18 20:49 Novolog SQ 5 unit ACHS SUSAN Administration Protocol Linagliptin 5 mg 01/14/18 09:00 01/14/18 10:05 Tradjenta PO 5 mg DAILY SUSAN Administration Naloxone HCl 0.2 mg 01/14/18 04:09 Narcan IV Q2M PRN Opioid Reversal Naproxen 500 mg 01/14/18 21:00 01/14/18 21:30 Naprosyn PO 500 mg BID SUSAN Administration Pantoprazole Sodium 40 mg 01/15/18 07:30 Protonix PO AC-BRKFST SUSAN Propranolol HCl 40 mg 01/14/18 09:00 01/14/18 20:48 Inderal PO 40 mg BID SUSAN Administration Sumatriptan Succinate 100 mg 01/14/18 04:13 Imitrex PO DAILY PRN Migraine Headache Topiramate 200 mg 01/14/18 09:00 01/14/18 20:30 Topamax PO Not Given BID SUSAN Intake and Output 01/14/18 01/15/18 01/15/18 22:59 06:59 14:59 Intake Total 660 Balance 660 Intake: Oral 660 Other: # Voids 1 01/15/18 07:24 01/13/18 23:22 Assessment and Plan Assessment: ASSESSMENT 1. Chest pain, atypical. An acute coronary event has been ruled out. Risk factors include family history and diabetes mellitus. 2. History of migraines 3. Ashtma 4. Diabetes mellitus PLAN An acute coronary event has been ruled out with no EKG changes indicative of acute ischemia and negative cardiac enzymes. Echocardiogram has been obtained and will be reviewed. Perform stress echocardiogram to assess for stress-induced cardiac ischemia. If the stress test is normal she is stable from a cardiac perspective to follow up with Dr. Piedra in 2-3 weeks. If positive we will consider coronary angiography. Thank you kindly for this consultation. Nurse Practitioner note has been reviewed, I agree with a documented findings and plan of care. Patient was seen and examined.
[2018-01-15] MEDS ORDERED: AMINOPHYLLINE 500 MG/20 ML VIAL IV PRN (11:48)
[2018-01-15] MEDS ORDERED: REGADENOSON 0.4 MG/5 ML SYRINGE IV ONE (11:48)
[2018-01-15] MEDS: PANTOPRAZOLE 40 MG TABLET PO SCH (12:12)
[2018-01-15] MEDS: PROPRANOLOL 40 MG TAB PO SCH ×2 (12:12→22:14)
[2018-01-15] MEDS: LINAGLIPTIN 5 MG TABLET PO SCH (12:12)
[2018-01-15] MEDS: NAPROXEN 250 MG TAB PO SCH ×2 (12:13→22:13)
[2018-01-15] MEDS: TOPIRAMATE 100 MG TAB PO SCH ×2 (12:14→22:13)
[2018-01-15 12:30] LABS: Glucose,Whole Blood 211 mg/dL (75-99)
--- NOTE | 2018-01-15 13:21 | P.PN ---
Subjective Progress Note Date: 01/15/18 This is a 37-year-old female patient of Dr. Tripp and Dr. Cedeno with past medical history of mild intermittent asthma, diabetes mellitus type 2 , seizure disorder recently diagnosed in October 2016, plantar fasciitis. Patient complains of chest pain is going on and off for a few days. It starts in her mid chest and radiates to the left side and also she has pain in her left back area in the thoracic area. 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 She sometimes has it and it increases while she is sitting. For the last couple of days she has felt off like her sugars out of control. She does state she has started a new job yesterday. She came into [facility] emergency center for evaluation. EKG was a sinus rhythm with nonspecific ST changes. Troponins have been negative on 3 draws. Patient to be placed on the observation unit and cardiology consult. 01/15:echocardiogram reveals EF of 60-65%, mild mitral regurgitation. patient underwent exercise stress test which she could not completely. A Deana scan is ordered for tomorrow. Objective - Vital Signs Vital signs: Vital Signs Temp 97.9 F 01/15/18 07:55 Pulse 74 01/15/18 08:00 Resp 16 01/15/18 08:00 BP 101/58 01/15/18 07:55 Pulse Ox 99 01/15/18 07:55 Intake & Output 01/14/18 01/15/18 01/15/18 18:59 06:59 18:59 Intake Total 660 Balance 660 Weight 73.3 kg 73.3 kg Intake: Oral 660 Other: Voiding Method Toilet # Voids 1 2 - Exam General appearance: average body habitus, cooperative, no acute distress - EENT Eyes: PERRLA, normal appearance ENT: hearing grossly normal - Neck Neck: no lymphadenopathy, normal ROM, no rigidity, no stridor, no thyromegaly - Respiratory Respiratory: bilateral: CTA, negative: diminished, dullness, rales, rhonchi, wheezing, prolonged expiration, prolonged inspiration - Cardiovascular Rhythm: regular Heart sounds: normal: S1, S2 Abnormal Heart Sounds: no systolic murmur, no diastolic murmur, no rub - Gastrointestinal General gastrointestinal: no distended, normal bowel sounds, soft, no tenderness - Integumentary Integumentary: no cellulitis, no rash - Neurologic Neurologic: CNII-XII intact - Musculoskeletal Musculoskeletal: no generalized weakness, strength equal bilaterally, no right sided weakness, no left sided weakness - Psychiatric Psychiatric: A&O x's 3, appropriate affect, intact judgment & insight - Labs CBC & Chem 7: 01/15/18 07:24 01/15/18 07:24 Labs: Abnormal Lab Results - Last 24 Hours (Table) 01/14/18 01/14/18 01/14/18 Range/Units 05:29 17:26 20:33 Chloride (98-107) mmol/L Carbon Dioxide (22-30) mmol/L Glucose (74-99) mg/dL POC Glucose (mg/dL) 240 H 301 H (75-99) mg/dL Hemoglobin A1c 9.6 H (4.0-6.0) % 01/15/18 01/15/18 Range/Units 06:51 07:24 Chloride 111 H (98-107) mmol/L Carbon Dioxide 17 L (22-30) mmol/L Glucose 295 H (74-99) mg/dL POC Glucose (mg/dL) 240 H (75-99) mg/dL Hemoglobin A1c (4.0-6.0) % Assessment and Plan Plan: 1. Chest pain with nonspecific ST changes in a patient with history of diabetes and family history of mother with LA at age 34. All troponins have been negative. Echocardiogram ordered. Cardiology consult. Lexiscan stress test tomorrow. 2. Mild intermittent asthma, stable without exacerbation. Continue albuterol nebulizer as needed. 3. Seizure disorder. Continue Topamax 200 mg twice daily. 4. Diabetes mellitus type 2. Patient is on Januvia 100 mg daily which will be continued. 5. History of chronic headaches. Patient is on Imitrex and propranolol. 6. DVT prophylaxis. FAITH hose and ambulation. 7. GI prophylaxis. Protonix. Patient placed on the observation unit. Discharge plan: Return home tomorrow Impression and plan of care have been directed as dictated by the signing physician. Sheri Prieto nurse practitioner acting as scribe for signing physician.
[2018-01-15 18:01] LABS: Glucose,Whole Blood 268 mg/dL (75-99)
[2018-01-15 21:27] LABS: Glucose,Whole Blood 243 mg/dL (75-99)
[2018-01-16 07:00] LABS: Glucose,Whole Blood 310 mg/dL (75-99)
[2018-01-16 08:11] VITALS: RESP 18
[2018-01-16] MEDS: PANTOPRAZOLE 40 MG TABLET PO SCH (10:33)
[2018-01-16] MEDS: PROPRANOLOL 40 MG TAB PO SCH (10:35)
[2018-01-16] MEDS: LINAGLIPTIN 5 MG TABLET PO SCH (10:35)
[2018-01-16] MEDS: NAPROXEN 250 MG TAB PO SCH (10:35)
[2018-01-16] MEDS: TOPIRAMATE 100 MG TAB PO SCH (10:36)
[2018-01-16] MEDS: INSULIN ASPART 100 UNIT/ML 1 ML 10 ML VIAL SQ SCH ×2 (10:36→17:43)
--- NOTE | 2018-01-16 10:36 | NM ---
EXAMINATION TYPE: NM stress lexiscan cardiolite DATE OF EXAM: 01/16/2018 COMPARISON: NONE HISTORY: Chest pain, shortness of breath, hypertension, diabetes, tobacco abuse and family history of coronary artery disease TECHNIQUE: After the intravenous administration of 10.01 mCi Tc 99m Sestamibi - Cardiolite resting S PECT images acquired 45 minutes post injection. The patient received 0.4mg Lexiscan, 27.1 mCi Tc 99m Sestamibi - Stress images obtained [address] injection FINDINGS: Review of stress and rest SPECT images demonstrates no distinct perfusion abnormality. No reversible or fixed perfusion abnormality is seen. Gated analysis shows normal wall motion with an estimated lef t ventricular ejection fraction of 63% on stress and 56% at rest. TID is within normal limits calcula malissa at 0.95. IMPRESSION: No scintigraphic evidence for reversible ischemia.
[2018-01-16 12:05] VITALS: BP 119/70; PULSE 82; TEMP 98.3
[2018-01-16 12:25] LABS: Glucose,Whole Blood 234 mg/dL (75-99)
--- NOTE | 2018-01-16 13:50 | P.PN ---
Subjective Progress Note Date: 01/16/18 Mrs. Gilbert is a pleasant 37-year-old female past medical history significant for asthma, diabetes mellitus and migraines. She denies history of coronary artery disease, hypertension or dyslipidemia. We have been asked to see her for chest pain. She states for the last 4 days she has been feeling a pain in her chest that starts on the right side and radiates across to the left. There is radiation through to the left upper back with some tingling noted in her left hand. The symptoms have been intermittent in nature for the last 4 days with progressive intensity. She denies shortness of breath, dizziness, palpitations, nausea, vomiting or diaphoresis. No specific aggravating or alleviating factors she can verbalize. EKG reveals sinus mechanism with non-specific T-wave abnormalities that are consistent with old EKG. Telemetry tracings have been unremarkable. Chest xray is negative for an acute cardiopulmonary process. Laboratory data reviewed, hemoglobin 12.2, platelets 219, sodium 139, potassium 4.7, creatinine 0.59, magnesium 1.8, cardiac enzymes negative 3. Current medications include [place], Januvia, Topamax, Imitrex, propanolol and albuterol. Most recent echocardiogram performed October 2016 is negative for stress- induced cardiac ischemia. Most recent echocardiogram performed October 2016 revealed preserved left ventricular systolic function with ejection fraction 55%. 01/16/2018 Miss Gilbert is see and examined today. She continues to complain of non- specific symptoms of generalized pain and achiness. Yesterday during exercise stress echocardiogram and became dizzy and short of breath while walking on the treadmill. She was unable to achieve her target heart rate and the test was stopped. Lexiscan was added for today and that was completed without incident. Results show no signs of reversible cardiac ischemia. Echocardiogram performed reveals preserved left ventricular systolic function with ejection fraction 60- 65%. Blood pressure 119/70 heart rate 82 afebrile and maintain oxygen saturation on room air. Objective - Vital Signs Vital signs: Vital Signs Temp 98.3 F 01/16/18 11:40 Pulse 82 01/16/18 11:40 Resp 18 01/16/18 11:40 BP 119/70 01/16/18 11:40 Pulse Ox 95 01/16/18 11:40 Intake & Output 01/15/18 01/16/18 01/16/18 18:59 06:59 18:59 Intake Total 236 240 Balance 236 240 Weight 73.3 kg Intake: Oral 236 240 Other: Voiding Method Toilet Toilet Toilet # Voids 3 1 - Exam GENERAL: Well-appearing, well-nourished and in no acute distress. NECK: Supple without JVD or thyromegaly. LUNGS: Breath sounds clear to auscultation bilaterally. Respiration equal and unlabored. No wheezes, rales or rhonchi. HEART: Regular rate and rhythm without murmurs, rubs or gallops. S1 and S2 heard. EXTREMITIES: Normal range of motion, no edema. No clubbing or cyanosis. Peripheral pulses intact and strong. - Labs CBC & Chem 7: 01/15/18 07:24 01/15/18 07:24 Labs: Abnormal Lab Results - Last 24 Hours (Table) 01/15/18 01/15/18 01/16/18 Range/Units 17:44 21:09 06:57 POC Glucose (mg/dL) 268 H 243 H 310 H (75-99) mg/dL 01/16/18 Range/Units 12:23 POC Glucose (mg/dL) 234 H (75-99) mg/dL Assessment and Plan Assessment: ASSESSMENT 1. Chest pain, atypical. An acute coronary event has been ruled out. Risk factors include family history and diabetes mellitus. 2. History of migraines 3. Ashtma 4. Diabetes mellitus PLAN Stable from a cardiac perspective with negative stress test. Follow up with Dr. Piedra in 2-3 weeks. Nurse Practitioner note has been reviewed, I agree with a documented findings and plan of care. Patient was seen and examined.
--- NOTE | 2018-01-16 15:19 | P.DS ---
Providers Date of admission: 01/14/18 04:11 Expected date of discharge: 01/15/18 Attending physician: Nuris Dominguez Consults: 01/14/18 14:00 Consult Physician Routine Consulting Provider: Chiara Lancaster Consult Reason/Comments: nonspecific changes ekg, chest pain, neg trops Do you want consulting provider notified?: Yes [facility] This is a 37-year-old female patient of Dr. Tripp and Dr. Cedeno with past medical history of mild intermittent asthma, diabetes mellitus type 2 , seizure disorder recently diagnosed in October 2016, plantar fasciitis. Patient complains of chest pain is going on and off for a few days. It starts in her mid chest and radiates to the left side and also she has pain in her left back area in the thoracic area. It started initially when she was driving to go picker feeder her daughter from school. She sometimes has it and it increases while she is sitting. For the last couple of days she has felt off like her sugars out of control. She does state she has started a new job yesterday. She came into [facility] emergency center for evaluation. EKG was a sinus rhythm with nonspecific ST changes. Troponins have been negative on 3 draws. Patient to be placed on the observation unit and cardiology consult. 01/15:echocardiogram reveals EF of 60-65%, mild mitral regurgitation. patient underwent exercise stress test which she could not completely. A Deana scan is ordered for tomorrow. 01/16: Patient underwent stress testing but will follow-up in an outpatient with Dr. Piedra. Vital signs have been stable. Pulse ox is 95% on room air. Patient will be discharged home today in stable condition. Slip for off work until Saturday has been provided to the patient. Discharge diagnoses: 1. Chest pain with nonspecific ST changes in a patient with history of diabetes and family history of mother with ND at age 34. 2. Mild intermittent asthma, stable without exacerbation. 3. Seizure disorder. 4. Diabetes mellitus type 2. 5. History of chronic headaches. Discharge plan: Return home Impression and plan of care have been directed as dictated by the signing physician. Sheri Prieto nurse practitioner acting as scribe for signing physician. Patient Condition at Discharge: Good Plan - Discharge Summary Discharge Rx Participant: No New Discharge Prescriptions: No Action Albuterol Inhaler [Ventolin Hfa Inhaler] 1 - 2 puff INHALATION RT-Q6H PRN PRN Reason: Shortness Of Breath sitaGLIPtin [Januvia] 100 mg PO DAILY Topiramate [Topiramate ER] 200 mg PO BID Propranolol HCl 40 mg PO BID SUMAtriptan SUCCINATE [Imitrex] 100 mg PO DAILY PRN PRN Reason: Migraine Headache HYDROcodone/APAP 10-325MG [[place] 10-325] 1 tab PO Q6HR PRN PRN Reason: Pain Discharge Medication List Albuterol Inhaler [Ventolin Hfa Inhaler] 1 - 2 puff INHALATION RT-Q6H PRN [History] Propranolol HCl 40 mg PO BID 01/13/18 [History] SUMAtriptan SUCCINATE [Imitrex] 100 mg PO DAILY PRN 01/13/18 [History] Topiramate [Topiramate ER] 200 mg PO BID 01/13/18 [History] sitaGLIPtin [Januvia] 100 mg PO DAILY 01/13/18 [History] HYDROcodone/APAP 10-325MG [[place] 10-325] 1 tab PO Q6HR PRN 01/14/18 [History] Follow up Appointment(s)/Referral(s): Ron Piedra MD [STAFF PHYSICIAN] - 02/11/18 3:45 pm Rivera Tripp DO [Primary Care Provider] - 1 Week (Office will call with appointment.) Patient Instructions/Handouts: Chest Pain (DC) Discharge Disposition: HOME SELF-CARE
--- NOTE | 2018-01-16 15:58 | EST ---
EXERCISE STRESS AGE: 37 SEX: M HT: 62" WT: 161 PROTOCOL: Lexiscan Cardiolite Stress Test HEART RATE REST: 73 BLOOD PRESSURE REST: 123/74 MAXIMUM HEART RATE ACHIEVED: 109 MAXIMUM BLOOD PRESSURE: 134/80 INDICATIONS: Chest pain. CLINICAL INFORMATION: STRESS DATA: Pretesting physical examination showed a heart rate of 73, pressure is 123/74 mmHg. Baseline EKG showed sinus mechanism. A 0.4 mg of Lexiscan was given to the patient. Max heart rate was 109 beats per minute and maximum pressure was 134/80 mmHg. Clinically, the patient did not have any symptoms and the EKG did not show any significant ST or T-wave abnormalities consistent with ischemia. CONCLUSION: 1. Nondiagnostic electrocardiogram stress testing in response to Lexiscan. 2. Please follow up on the Cardiolite portion on separate report from Radiology Department. MMODL / IJN: [id number] /
== END 2018-01-16 15:01 | disposition home or self-care (01) ==
LOC: EC 21:29 → 3OBS 01-14 04:11
PROVIDERS: ADMIT Internal Medicine; ATTEND Internal Medicine
DX: R07.89 Other chest pain (principal); E11.65 Type 2 diabetes mellitus with hyperglycemia; E87.2 Acidosis; J45.20 Mild intermittent asthma, uncomplicated; G40.909 Epilepsy, unspecified, not intractable, without status epilepticus; G43.909 Migraine, unspecified, not intractable, without status migrainosus; E28.2 Polycystic ovarian syndrome; M72.2 Plantar fascial fibromatosis; R20.2 Paresthesia of skin; E66.9 Obesity, unspecified; Z68.29 Body mass index [BMI] 29.0-29.9, adult; Z79.84 Long term (current) use of oral hypoglycemic drugs; Z79.899 Other long term (current) drug therapy; Z88.0 Allergy status to penicillin; Z88.2 Allergy status to sulfonamides; Z88.5 Allergy status to narcotic agent; Z86.14 Personal history of Methicillin resistant Staphylococcus aureus infection; Z87.01 Personal history of pneumonia (recurrent); Z87.891 Personal history of nicotine dependence; Z87.19 Personal history of other diseases of the digestive system; Z80.0 Family history of malignant neoplasm of digestive organs; Z80.8 Family history of malignant neoplasm of other organs or systems; Z82.49 Family history of ischemic heart disease and other diseases of the circulatory system; Z82.0 Family history of epilepsy and other diseases of the nervous system
CPT/HCPCS: 99285 ×2; 96374 ×2; 96361 ×2; 36415 ×2; 93005 ×2; 93017; 93306; 85379; 80053; 80048; 82550; 82553; 83735; 84484 ×2; 85025 ×2; 85610; 85730; 81001; 83036; 71046; 78452; G0378 ×3; A9500; J1885; J2785

== ENCOUNTER → 2018-02-21 | Outpatient (CLI) | payer OTHER | END | disposition home or self-care (01) | LOC: RADCTMAIN 18:40 | PROVIDERS: ATTEND Internal Medicine Cardiovascular Disease | DX: Z53.9 Procedure and treatment not carried out, unspecified reason (principal) ==

== ENCOUNTER 2018-07-13 09:44 | Observation (INO) | payer OTHER ==
[2018-07-13] MEDS ORDERED: ONDANSETRON 4 MG/2 ML VIAL IVP STA ×2 (10:01→13:02)
[2018-07-13] MEDS ORDERED: SODIUM CHLORIDE 0.9% 1,000 ML IV STA (10:01)
--- NOTE | 2018-07-13 10:12 | ED ---
General Adult HPI - General Chief complaint: Nausea/Vomiting/Diarrhea Stated complaint: vomiting Time Seen by Provider: 07/13/18 10:00 Source: patient, RN notes reviewed, old records reviewed Mode of arrival: ambulatory Limitations: no limitations - History of Present Illness Initial comments: 38-year-old female presenting for evaluation of nausea and vomiting. Patient states her vomiting began approximate 7 hours prior to arrival. She's had greater than 10 episodes. Denies abdominal pain. She has had some small amount of diarrhea since her symptoms have begun. Denies fever or chills, states she has felt diaphoretic. Chronic medical history includes diabetes. Patient denies any known sick contacts. She does admit to drinking alcohol yesterday evening although this was in moderation. - Related Data Home Medications Medication Instructions Recorded Confirmed Albuterol Inhaler [Ventolin Hfa 1 - 2 puff INHALATION RT-Q6H PRN 04/15/17 Inhaler] Propranolol HCl 40 mg PO DAILY 01/13/18 07/13/18 SUMAtriptan SUCCINATE [Imitrex] 100 mg PO DAILY PRN 01/13/18 07/13/18 Topiramate [Topiramate ER] 200 mg PO DAILY 01/13/18 07/13/18 HYDROcodone/APAP 10-325MG [[place] 1 tab PO Q6HR PRN 01/14/18 07/13/18 10-325] Linagliptin [Tradjenta] 5 mg PO DAILY 07/13/18 07/13/18 glipiZIDE [Glucotrol] 5 mg PO AC-BID 07/13/18 07/13/18 Allergies Allergy/AdvReac Type Severity Reaction Status Date / Time codeine AdvReac Nausea & Verified 07/13/18 13:39 Vomiting Penicillins AdvReac Nausea & Verified 07/13/18 13:39 Vomiting Sulfa (Sulfonamide AdvReac Nausea & Verified 07/13/18 13:39 Antibiotics) Vomiting tramadol AdvReac Unknown Verified 07/13/18 13:39 Review of Systems ROS Statement: Those systems with pertinent positive or pertinent negative responses have been documented in the HPI. ROS Other: All systems not noted in ROS Statement are negative. Past Medical History Past Medical History: Asthma, Diabetes Mellitus, GI Bleed, Seizure Disorder Additional Past Medical History / Comment(s): NIDDM type II, grand mall seizure once in 2017, lower GI bleed, mild diverticular dx, PCOS, bronchitis, pneumonia , migraines, allergic rhinitis. History of Any Multi-Drug Resistant Organisms: None Reported, MRSA Date of last positivie culture/infection: 2011 MDRO Source:: Lungs Past Surgical History: Section, Tubal Ligation Additional Past Surgical History / Comment(s): colonoscopies, R groin mole removed then resected d/t abnormal cells-bening. Past Anesthesia/Blood Transfusion Reactions: No Reported Reaction Past Psychological History: No Psychological Hx Reported Smoking Status: Former smoker - Past Family History Father Family Medical History: Cancer Additional Family Medical History / Comment(s): COLON, MELANOMA AND NOW BRAIN METS. FATHER IS 68 YRS OLD. Mother Family Medical History: Cancer, Dialysis Additional Family Medical History / Comment(s): MELANOMA THAT METASTASIZED TO THE BRAIN- FROM AT AGE 49 YRS. Mother had an TN at age 34. Brother(s) Additional Family Medical History / Comment(s): Patient has one half-brother and one full brother with no major medical problems. Patient has 1 sister with no major medical problems. Daughter(s) Additional Family Medical History / Comment(s): Patient has 2 daughters and her youngest daughter has history of seizure disorder. Patient has one son with no major medical problems. General Exam Limitations: no limitations General appearance: alert, in no apparent distress Head exam: Present: atraumatic, normocephalic Eye exam: Present: normal appearance, PERRL ENT exam: Present: mucous membranes dry Neck exam: Present: normal inspection. Absent: tenderness, meningismus Respiratory exam: Present: normal lung sounds bilaterally. Absent: respiratory distress, wheezes Cardiovascular Exam: Present: regular rate, normal rhythm GI/Abdominal exam: Present: soft. Absent: distended, tenderness, guarding Extremities exam: Present: normal inspection, normal capillary refill. Absent: pedal edema Neurological exam: Present: alert, oriented X3, CN II-XII intact. Absent: motor sensory deficit Psychiatric exam: Present: normal affect, normal mood Skin exam: Present: warm, dry. Absent: cyanosis, diaphoretic Course Vital Signs 07/13/18 07/13/18 07/13/18 09:53 12:21 16:40 Temperature 97.7 F 98.4 F 99.1 F Pulse Rate 84 69 68 Respiratory 16 20 20 Rate Blood Pressure 143/81 143/111 152/95 O2 Sat by Pulse 99 98 100 Oximetry - Reevaluation(s) Reevaluation #1: 07/13/18 16:53 Despite multiple rounds of antiemetics and symptomatic treatment, patient has persistent vomiting. She will be placed in observation for IV hydration and continued symptomatically treatment. EKG Findings - EKG Comments: EKG Findings:: EKG: Normal sinus rhythm T-wave inversion in V2 and V3, no ST segment elevation or depression, rate of 92, SD interval 138, QRS duration 86, QTC 464 Medical Decision Making - Medical Decision Making 38-year-old female presenting with nausea vomiting. Patient has workup in the emergency Department which includes abdominal x-ray negative for obstruction, she did have some mild elevation in AST and ALT, ultrasound gallbladder was obtained which is negative for any acute findings. She has mild leukocytosis 12.5, stable hemoglobin, analysis of the electrolytes reveals CO2 of 18 with a normal anion gap. This is a chronic finding for this patient. She has a normal lipase. Glucose is elevated 290. Treated with normal saline and insulin. Despite multiple rows of antiemetics, pain medication benzodiazepines. She has persistent symptoms. At this time CT is obtained which is negative for obstruction or acute intra-abdominal findings. Patient will be admitted for symptomatically treatment of intractable nausea and vomiting. Case discussed with Dr. Arciniega. Will accept admission - Lab Data Result diagrams: 07/13/18 10:30 07/13/18 10:30 Lab Results 07/13/18 07/13/18 07/13/18 Range/Units 10:30 10:30 10:30 WBC 12.5 H (3.8-10.6) k/uL RBC 4.50 (3.80-5.40) m/uL Hgb 13.0 (11.4-16.0) gm/dL Hct 39.8 (34.0-46.0) % MCV 88.3 (80.0-100.0) fL MCH 28.9 (25.0-35.0) pg MCHC 32.8 (31.0-37.0) g/dL RDW 13.1 (11.5-15.5) % Plt Count 229 (150-450) k/uL Neutrophils % 85 % Lymphocytes % 9 % Monocytes % 4 % Eosinophils % 1 % Basophils % 0 % Neutrophils # 10.7 H (1.3-7.7) k/uL Lymphocytes # 1.2 (1.0-4.8) k/uL Monocytes # 0.5 (0-1.0) k/uL Eosinophils # 0.1 (0-0.7) k/uL Basophils # 0.0 (0-0.2) k/uL Sodium 139 (137-145) mmol/L Potassium 5.0 (3.5-5.1) mmol/L Chloride 109 H (98-107) mmol/L Carbon Dioxide 18 L (22-30) mmol/L Anion Gap 12 mmol/L BUN 13 (7-17) mg/dL Creatinine 0.52 (0.52-1.04) mg/dL Est GFR (CKD-EPI)AfAm >90 (>60 ml/min/1.73 sqM) Est GFR (CKD-EPI)NonAf >90 (>60 ml/min/1.73 sqM) Glucose 294 H (74-99) mg/dL Calcium 10.0 (8.4-10.2) mg/dL Total Bilirubin 0.6 (0.2-1.3) mg/dL AST 41 H (14-36) U/L ALT 73 H (9-52) U/L Alkaline Phosphatase 92 (38-126) U/L Troponin I <0.012 (0.000-0.034) ng/mL Total Protein 7.5 (6.3-8.2) g/dL Albumin 4.2 (3.5-5.0) g/dL Amylase 46 (30-110) U/L Lipase 237 (23-300) U/L Urine Color Urine Appearance (Clear) Urine pH (5.0-8.0) Ur Specific [place] (1.001-1.035) Urine Protein (Negative) Urine Glucose (UA) (Negative) Urine Ketones (Negative) Urine Blood (Negative) Urine Nitrite (Negative) Urine Bilirubin (Negative) Urine Urobilinogen (<2.0) mg/dL Ur Leukocyte Esterase (Negative) 07/13/18 Range/Units 14:41 WBC (3.8-10.6) k/uL RBC (3.80-5.40) m/uL Hgb (11.4-16.0) gm/dL Hct (34.0-46.0) % MCV (80.0-100.0) fL MCH (25.0-35.0) pg MCHC (31.0-37.0) g/dL RDW (11.5-15.5) % Plt Count (150-450) k/uL Neutrophils % % Lymphocytes % % Monocytes % % Eosinophils % % Basophils % % Neutrophils # (1.3-7.7) k/uL Lymphocytes # (1.0-4.8) k/uL Monocytes # (0-1.0) k/uL Eosinophils # (0-0.7) k/uL Basophils # (0-0.2) k/uL Sodium (137-145) mmol/L Potassium (3.5-5.1) mmol/L Chloride (98-107) mmol/L Carbon Dioxide (22-30) mmol/L Anion Gap mmol/L BUN (7-17) mg/dL Creatinine (0.52-1.04) mg/dL Est GFR (CKD-EPI)AfAm (>60 ml/min/1.73 sqM) Est GFR (CKD-EPI)NonAf (>60 ml/min/1.73 sqM) Glucose (74-99) mg/dL Calcium (8.4-10.2) mg/dL Total Bilirubin (0.2-1.3) mg/dL AST (14-36) U/L ALT (9-52) U/L Alkaline Phosphatase (38-126) U/L Troponin I (0.000-0.034) ng/mL Total Protein (6.3-8.2) g/dL Albumin (3.5-5.0) g/dL Amylase (30-110) U/L Lipase (23-300) U/L Urine Color Light Yellow Urine Appearance Clear (Clear) Urine pH 7.0 (5.0-8.0) Ur Specific [place] 1.019 (1.001-1.035) Urine Protein Negative (Negative) Urine Glucose (UA) 4+ H (Negative) Urine Ketones 2+ H (Negative) Urine Blood Negative (Negative) Urine Nitrite Negative (Negative) Urine Bilirubin Negative (Negative) Urine Urobilinogen <2.0 (<2.0) mg/dL Ur Leukocyte Esterase Negative (Negative) Disposition Clinical Impression: Dehydration, Intractable nausea and vomiting Disposition: ADMITTED IP TO THIS HOSP Condition: Stable Is patient prescribed a controlled substance at d/c from ED?: No Referrals: Rivera Tripp DO [Primary Care Provider] - 1-2 days Time of Disposition: 17:04
[2018-07-13 10:41] LABS: Basophils % (A) 0 %; Eosinophils # (A) 0.1 k/uL (0-0.7); Eosinophils % (A) 1 %; HCT 39.8 % (34.0-46.0); Lymphocytes # (A) 1.2 k/uL (1.0-4.8); Lymphocytes % (A) 9 %; MCH 28.9 pg (25.0-35.0); MCHC 32.8 g/dL (31.0-37.0); MCV 88.3 fL (80.0-100.0); Mean Platelet Volume 7.2; Monocytes # (A) 0.5 k/uL (0-1.0); Monocytes % (A) 4 %; Neutrophils # (A) 10.7 k/uL (1.3-7.7); Neutrophils % (A) 85 %; Platelet Count 229 k/uL (150-450); RDW 13.1 % (11.5-15.5); WBC 12.5 k/uL (3.8-10.6)
[2018-07-13 10:50] LABS: ALT 73 U/L (9-52); AST 41 U/L (14-36); Albumin 4.2 g/dL (3.5-5.0); Alkaline Phosphatase 92 U/L (38-126); Amylase 46 U/L (30-110); Anion Gap 12 mmol/L; Blood Urea Nitrogen 13 mg/dL (7-17); Carbon Dioxide 18 mmol/L (22-30); Chloride 109 mmol/L (98-107); Glucose 294 mg/dL (74-99); Lipase 237 U/L (23-300); Sodium 139 mmol/L (137-145); Total Bilirubin 0.6 mg/dL (0.2-1.3); Total Protein 7.5 g/dL (6.3-8.2)
--- NOTE | 2018-07-13 11:13 | XR ---
EXAMINATION TYPE: XR KUB , 2 VIEWS DATE OF EXAM ORDERED: 07/13/2018 HISTORY: Pain. COMPARISON: None. FINDINGS: The lung bases are clear. The abdominal gas pattern is within normal limits. There is no evidence of obstruction or free air. N o unusual calcifications are seen. IMPRESSION: NORMAL ABDOMEN.
--- NOTE | 2018-07-13 12:05 | US ---
EXAMINATION TYPE: US gallbladder DATE OF EXAM: 07/13/2018 COMPARISON: NONE CLINICAL HISTORY: Pain. Uncontrolled vomiting EXAM MEASUREMENTS: Liver Length: 16.7 cm Gallbladder Wall: 0.1 cm CBD: 0.2 cm Right Kidney: 10.8 x 5.2 x 5.4 cm Limited visualization, pt unable to take breath in and hold, also unable to tolerate probe pressure Pancreas: wnl, tail obscured by overlying bowel gas Liver: Limited visualization, visualized portions appeared wnl Gallbladder: wnl, pt unable to roll LLD position Evidence for sonographic Rader's sign: Yes CBD: wnl Right Kidney: wnl The examination is limited by the patient's inability to cooperate. Limited views of the pancreas are unremarkable. The liver is normal in size without biliary dilatation. Limited views of the gallbladder are unremarkable. The gallbladder wall measures 1 mm. The distal com mon hepatic duct measures 2 mm. The right kidney is unremarkable. The intrahepatic IVC is normal. IMPRESSION: LIMITED EXAMINATION SHOWING NO DEFINITE ABNORMALITY.
[2018-07-13] MEDS ORDERED: SODIUM CHLORIDE 0.9% 1,000 ML IV ONE (13:02)
[2018-07-13] MEDS ORDERED: MORPHINE SULFATE 4 MG/ML SYRINGE IVP STA (13:02)
[2018-07-13 14:48] LABS: Appearance,Urine Clear (Clear); Bilirubin,Urine Negative (Negative); Blood,Urine Negative (Negative); Color,Urine Light Yellow; Glucose,Urine (UA) 4+ (Negative); Leukocyte Esterase,Urine Negative (Negative); Nitrite,Urine Negative (Negative); Protein,Urine Negative (Negative); Specific Gravity,Urine 1.019 (1.001-1.035); Urobilinogen,Urine <2.0 mg/dL (<2.0)
[2018-07-13 14:58] LABS: Ketones,Urine 2+ (Negative)
--- NOTE | 2018-07-13 16:25 | CT ---
EXAMINATION TYPE: CT abdomen pelvis w con DATE OF EXAM: 07/13/2018 COMPARISON: None HISTORY: Nausea, vomiting and generalized abdominal pain. CT DLP: 797.6 mGycm Automated exposure control for dose reduction was used. TECHNIQUE: Helical acquisition of images was performed from the lung bases through the pelvis. CONTRAST: Performed without Oral Contrast and with IV Contrast, patient injected with 100 mL of Isovue 300. FINDINGS: Lung bases are clear of consolidation. There is no pleural effusion. There is no pericardial effusion . Liver spleen pancreas gallbladder appear normal. Bile ducts are not dilated. There is no adrenal mass. Kidneys show satisfactory contrast opacification. There is no hydronephrosi s. Ureters are not dilated. Bladder distends smoothly. There is no retroperitoneal adenopathy. There is no inguinal hernia. There is small amount of free fluid in the cul-de-sac. Uterus is anteverted. L umbar spine is intact. Bony pelvis appears intact. Appendix appears normal. I see no intestinal wall thickening. There are no dilated loops. There is no ascites. There is no mesenteric edema or adenopathy. There is no sign of free air. IMPRESSION: TINY AMOUNT OF FREE FLUID IN THE PELVIS.. NORMAL APPENDIX.
[2018-07-13] MEDS ORDERED: FAMOTIDINE 20 MG/2 ML VIAL IV STA (16:29)
[2018-07-13] MEDS: SODIUM CHLORIDE 0.9% 1,000 ML IV SCH (16:35)
[2018-07-13] MEDS ORDERED: LORazepam 2 MG/ML INJ IV STA (16:53)
[2018-07-13] MEDS ORDERED: METOCLOPRAMIDE 5 MG/ML 2 ML VIAL IVP STA (16:54)
[2018-07-13] MEDS ORDERED: MORPHINE SULFATE 4 MG/ML SYRINGE IV PRN (16:57)
[2018-07-13] MEDS ORDERED: NALOXONE 0.4 MG/ML 1 ML VIAL IV PRN (16:57)
[2018-07-13] MEDS ORDERED: LORazepam 2 MG/ML INJ IV PRN (16:57)
[2018-07-13] MEDS ORDERED: ONDANSETRON 4 MG/2 ML VIAL IVP PRN (16:57)
[2018-07-13] MEDS ORDERED: INSULIN REGULAR 100 UNIT/ML VIAL SQ ONE (17:07)
[2018-07-13 17:08] LABS: Glucose,Whole Blood 224 mg/dL (75-99)
[2018-07-13] MEDS ORDERED: SCOPOLAMINE 1.5MG/72HR PATCH TRANSDERM ONE (17:15)
[2018-07-13 18:37] VITALS: RESP 16
[2018-07-13] MEDS ORDERED: SUMAtriptan SUCCINATE 50 MG TAB PO PRN (20:05)
[2018-07-13] MEDS ORDERED: ALBUTEROL NEBULIZED 2.5 MG/3 ML INHALATION PRN (20:07)
[2018-07-13 20:36] LABS: Alcohol <10 mg/dL
[2018-07-13] MEDS ORDERED: INSULIN ASPART 100 UNIT/ML 1 ML 10 ML VIAL SQ SCH (21:00)
[2018-07-13 23:14] LABS: Amphetamine Screen,Urine Not Detected (NotDetected); Barbiturate Screen,Urine Not Detected (NotDetected); Benzodiazepines Screen,Urine Not Detected (NotDetected); Cocaine Screen,Urine Not Detected (NotDetected); Methadone Screen, Urine Not Detected (NotDetected); Opiate Screen,Urine Detected (NotDetected); Oxycodone Screen, Urine Not Detected (NotDetected); Phencyclidine Screen,Urine Not Detected (NotDetected); Tricyclic Antidepressant,Urine Not Detected (NotDetected); Urn Cannabinoid Scrn Not Detected (NotDetected)
[2018-07-13 23:44] LABS: Glucose,Whole Blood 129 mg/dL (75-99)
[2018-07-13] MEDS: TOPIRAMATE 100 MG TAB PO SCH (23:49)
[2018-07-14] MEDS: INSULIN ASPART 100 UNIT/ML 1 ML 10 ML VIAL SQ SCH ×3 (01:06→12:10)
[2018-07-14] MEDS: METOCLOPRAMIDE 5 MG/ML 2 ML VIAL IVP SCH ×3 (01:07→11:48)
[2018-07-14] MEDS: SODIUM CHLORIDE 0.9% 1,000 ML IV SCH ×2 (06:20→15:19)
[2018-07-14 06:27] LABS: Glucose,Whole Blood 133 mg/dL (75-99)
[2018-07-14] MEDS ORDERED: PROPRANOLOL 40 MG TAB PO SCH (09:00)
[2018-07-14] MEDS ORDERED: PANTOPRAZOLE 40 MG/10 ML VIAL IV SCH (09:00)
--- NOTE | 2018-07-14 09:36 | NM ---
EXAMINATION TYPE: NM hepatobiliary w CCK DATE OF EXAM: 07/14/2018 COMPARISON: NONE HISTORY: Pain TECHNIQUE: After the intravenous administration of 5.33 mCi Tc 99m Mebrofenin hepatobiliary scintigra phy is performed. Immediate images post injection. FINDINGS: There is satisfactory initial accumulation of tracer by the liver. The gallbladder is visualized wit hin 14 minutes. The small bowel activity is noted within 8 minutes. At one hour CCK was administere d, patient was injected with 1.4 mcg of Kinevac, and gallbladder ejection fraction is calculated at 9 %. IMPRESSION: Diminished gallbladder ejection fraction which may reflect chronic cholecystitis and/or b iliary dyskinesia.
[2018-07-14] MEDS: TOPIRAMATE 100 MG TAB PO SCH ×2 (09:53→11:44)
[2018-07-14 10:25] LABS: ALT 53 U/L (9-52); AST 28 U/L (14-36); Albumin 3.6 g/dL (3.5-5.0); Alkaline Phosphatase 76 U/L (38-126); Anion Gap 8 mmol/L; Basophils % (A) 0 %; Blood Urea Nitrogen 11 mg/dL (7-17); Calcium 9.9 mg/dL (8.4-10.2); Carbon Dioxide 23 mmol/L (22-30); Chloride 110 mmol/L (98-107); Eosinophils % (A) 1 %; Glucose 163 mg/dL (74-99); HCT 36.5 % (34.0-46.0); HGB 12.2 gm/dL (11.4-16.0); Lymphocytes # (A) 1.8 k/uL (1.0-4.8); Lymphocytes % (A) 21 %; MCH 29.6 pg (25.0-35.0); MCHC 33.4 g/dL (31.0-37.0); MCV 88.6 fL (80.0-100.0); Magnesium 1.7 mg/dL (1.6-2.3); Mean Platelet Volume 7.2; Monocytes # (A) 0.5 k/uL (0-1.0); Monocytes % (A) 6 %; Neutrophils # (A) 5.8 k/uL (1.3-7.7); Neutrophils % (A) 70 %; Platelet Count 222 k/uL (150-450); Potassium 3.7 mmol/L (3.5-5.1); RBC 4.12 m/uL (3.80-5.40); RDW 13.3 % (11.5-15.5); Sodium 141 mmol/L (137-145); Total Bilirubin 0.5 mg/dL (0.2-1.3); Total Protein 6.6 g/dL (6.3-8.2); WBC 8.3 k/uL (3.8-10.6)
[2018-07-14 12:05] LABS: Glucose,Whole Blood 160 mg/dL (75-99)
[2018-07-14 12:45] VITALS: BP 109/68; PULSE 59; TEMP 98.2
[2018-07-14 14:46] VITALS: BMI 28.7
--- NOTE | 2018-07-14 14:58 | P.HPIM ---
History of Present Illness H&P Date: 07/14/18 Chief Complaint: Vomiting HISTORY AND PHYSICAL AND DISCHARGE SUMMARY: This is a 38-year-old female patient of Dr. Tripp and Dr. Cedeno with past medical history of mild intermittent asthma, diabetes mellitus type 2 , seizure disorder recently diagnosed in October 2016, plantar fasciitis. Patient complains of epigastric pain, nausea since last evening. She states she ate a [employer] at 5 PM and had chicken nuggets and a burger. She denies having any fever or chills. She denies any blood in her vomit. She follows with an funeral planner and has a follow-up appointment on 07 23. She is currently on glipizide and Tradjenta. She has been off metformin for more than a year due to side effects. She came into [facility] emergency center for evaluation. Her white count was 12.5, chloride 109 and CO2 18, blood sugar 294. Troponin was negative. Urinalysis was clear with nitrate and leukoesterase negative, positive for glucose and ketones. Lipase was 237. KUB showed normal abdomen. Gallbladder ultrasound shows a limited exam with no definite abnormality. CT of the abdomen and pelvis shows tiny amount of free fluid in the pelvis. Normal appendix. Patient was started on clear liquid diet, IV fluids, Zofran for nausea and morphine for pain, Protonix IV and placed in the pediatric unit as an observation. Patient is having epigastric discomfort with tenderness to the area along with heartburn. She states she is a little nauseated. We'll plan to advance her diet and recommended to continue omeprazole for 1 month after discharge. Patient will be discharged later today if she tolerates her diet. Discharge Medication List Albuterol Inhaler [Ventolin Hfa Inhaler] 1 - 2 puff INHALATION RT-Q6H PRN [History] Propranolol HCl 40 mg PO DAILY 01/13/18 [History] SUMAtriptan SUCCINATE [Imitrex] 100 mg PO DAILY PRN 01/13/18 [History] Topiramate [Topiramate ER] 200 mg PO DAILY 01/13/18 [History] HYDROcodone/APAP 10-325MG [[place] 10-325] 1 tab PO Q6HR PRN 01/14/18 [History] Linagliptin [Tradjenta] 5 mg PO DAILY 07/13/18 [History] glipiZIDE [Glucotrol] 5 mg PO AC-BID 07/13/18 [History] NEW: Famotidine [Pepcid] 20 mg PO DAILY #30 tablet 07/14/18 [Rx] Ondansetron [Zofran] 4 mg PO Q8HR PRN #30 tab 07/14/18 [Rx] Review of Systems All systems: negative Constitutional: Reports poor appetite, Denies anorexia, Denies chills, Denies fatigue, Denies fever, Denies sweats, Denies weight loss Eyes: denies blurred vision, denies pain Ears, nose, mouth and throat: Denies dysphagia, Denies headache, Denies mouth pain, Denies sore throat, Denies vertigo Cardiovascular: Denies chest pain, Denies dyspnea on exertion, Denies edema, Denies palpitations, Denies shortness of breath, Denies syncope Respiratory: Denies cough, Denies cough with sputum, Denies dyspnea, Denies excessive sputum, Denies hemoptysis, Denies home oxygen, Denies wheezing Gastrointestinal: Reports abdominal pain, Reports nausea, Denies diarrhea, Denies vomiting Genitourinary: Denies dysuria, Denies hematuria Musculoskeletal: Denies frequent falls, Denies gait dysfunction, Denies myalgias Integumentary: Denies pruritus, Denies rash, Denies wounds Neurological: Denies numbness, Denies weakness Psychiatric: Denies anxiety, Denies depression Endocrine: Denies fatigue, Denies weight change Past Medical History Past Medical History: Asthma, Diabetes Mellitus, GI Bleed, Seizure Disorder Additional Past Medical History / Comment(s): NIDDM type II, grand mall seizure once in 2017, lower GI bleed, mild diverticular dx, PCOS, bronchitis, pneumonia , migraines, allergic rhinitis. History of Any Multi-Drug Resistant Organisms: None Reported, MRSA Date of last positivie culture/infection: 2011 MDRO Source:: Lungs Past Surgical History: Section, Tubal Ligation Additional Past Surgical History / Comment(s): colonoscopies, R groin mole removed then resected d/t abnormal cells-bening. Past Anesthesia/Blood Transfusion Reactions: No Reported Reaction Past Psychological History: No Psychological Hx Reported Smoking Status: Former smoker - Past Family History Father Family Medical History: Cancer Additional Family Medical History / Comment(s): COLON, MELANOMA ON HIS CHEST AND HE ALSO HAS BENIGN BRAIN TUMORS 2, diabetes, pancreatic cancer. FATHER IS 68 YRS OLD. Mother Family Medical History: Cancer, Dialysis Additional Family Medical History / Comment(s): MELANOMA THAT METASTASIZED TO THE BRAIN- FROM AT AGE 49 YRS. Mother had an [place] at age 34 and history of diabetes. Patient has many aunts, uncles and nieces with diabetes on her mother 's side. Brother(s) Additional Family Medical History / Comment(s): Patient has one half-brother and one full brother with no major medical problems. Patient has 1 sister with no major medical problems. Daughter(s) Additional Family Medical History / Comment(s): Patient has 2 daughters and her youngest daughter has history of seizure disorder. Patient has one son with no major medical problems. Medications and Allergies Home Medications Medication Instructions Recorded Confirmed Type Albuterol Inhaler [Ventolin Hfa 1 - 2 puff INHALATION RT-Q6H PRN 04/15/17 History Inhaler] Propranolol HCl 40 mg PO DAILY 01/13/18 07/13/18 History SUMAtriptan SUCCINATE [Imitrex] 100 mg PO DAILY PRN 01/13/18 07/13/18 History Topiramate [Topiramate ER] 200 mg PO DAILY 01/13/18 07/13/18 History HYDROcodone/APAP 10-325MG [[place] 1 tab PO Q6HR PRN 01/14/18 07/13/18 History 10-325] Linagliptin [Tradjenta] 5 mg PO DAILY 07/13/18 07/13/18 History glipiZIDE [Glucotrol] 5 mg PO AC-BID 07/13/18 07/13/18 History Famotidine [Pepcid] 20 mg PO DAILY #30 tablet 07/14/18 Rx Ondansetron [Zofran] 4 mg PO Q8HR PRN #30 tab 07/14/18 Rx Allergies Allergy/AdvReac Type Severity Reaction Status Date / Time codeine AdvReac Nausea & Verified 07/13/18 17:31 Vomiting Penicillins AdvReac Nausea & Verified 07/13/18 17:31 Vomiting Sulfa (Sulfonamide AdvReac Nausea & Verified 07/13/18 17:31 Antibiotics) Vomiting tramadol AdvReac Unknown Verified 07/13/18 17:31 Physical Exam Vitals: Vital Signs Temp Pulse Pulse Resp BP BP Pulse Ox 07/14/18 09:38 98.5 F 73 16 115/73 99 07/13/18 23:07 98.3 F 93 16 100/65 98 07/13/18 18:32 97.8 F 100 16 119/81 99 07/13/18 17:56 99.0 F 91 18 122/78 99 07/13/18 16:40 99.1 F 68 20 152/95 100 07/13/18 12:21 98.4 F 69 20 143/111 98 Intake and Output 07/13/18 07/14/18 07/14/18 22:59 06:59 14:59 Other: Voiding Method Toilet # Voids 1 1 - Constitutional General appearance: average body habitus, cooperative, no acute distress - EENT Eyes: PERRLA, normal appearance ENT: hearing grossly normal - Neck Neck: no lymphadenopathy, normal ROM, no rigidity, no stridor, no thyromegaly - Respiratory Respiratory: bilateral: CTA, negative: diminished, dullness, rales, rhonchi, wheezing, prolonged expiration, prolonged inspiration - Cardiovascular Rhythm: regular Heart sounds: normal: S1, S2 Abnormal Heart Sounds: no systolic murmur, no diastolic murmur, no rub - Gastrointestinal General gastrointestinal: no distended, normal bowel sounds, soft, epigastric tenderness - Integumentary Integumentary: no cellulitis, no rash - Neurologic Neurologic: CNII-XII intact - Musculoskeletal Musculoskeletal: no generalized weakness, strength equal bilaterally, no right sided weakness, no left sided weakness - Psychiatric Psychiatric: A&O x's 3, appropriate affect, intact judgment & insight Results CBC & Chem 7: 07/14/18 09:34 07/14/18 09:34 Labs: Abnormal Lab Results - Last 24 Hours (Table) 07/13/18 07/13/18 07/13/18 Range/Units 14:41 14:41 17:06 Chloride (98-107) mmol/L Glucose (74-99) mg/dL POC Glucose (mg/dL) 224 H (75-99) mg/dL Hemoglobin A1c (4.0-6.0) % ALT (9-52) U/L Urine Glucose (UA) 4+ H (Negative) Urine Ketones 2+ H (Negative) Urine Opiates Screen Detected H (NotDetected) 07/13/18 07/13/18 07/14/18 Range/Units 20:19 23:41 06:20 Chloride (98-107) mmol/L Glucose (74-99) mg/dL POC Glucose (mg/dL) 129 H 133 H (75-99) mg/dL Hemoglobin A1c 9.0 H (4.0-6.0) % ALT (9-52) U/L Urine Glucose (UA) (Negative) Urine Ketones (Negative) Urine Opiates Screen (NotDetected) 07/14/18 Range/Units 09:34 Chloride 110 H (98-107) mmol/L Glucose 163 H (74-99) mg/dL POC Glucose (mg/dL) (75-99) mg/dL Hemoglobin A1c (4.0-6.0) % ALT 53 H (9-52) U/L Urine Glucose (UA) (Negative) Urine Ketones (Negative) Urine Opiates Screen (NotDetected) Thrombosis Risk Factor Assmnt - Choose All That Apply Any of the Below Risk Factors Present?: Yes Each Factor Represents 1 point: Obesity (BMI >25) Other Risk Factors: No Other congenital or acquired thrombophilia - If yes, enter type in comment: No Thrombosis Risk Factor Assessment Total Risk Factor Score: 1 Thrombosis Risk Factor Assessment Level: Low Risk Assessment and Plan Plan: 1. Epigastric pain secondary to gastritis with possible viral enteritis. Patient will be placed on omeprazole daily and Zofran as needed for nausea. Diet to be advanced as this is tolerated she may be discharged home with follow- up with her primary care 2. Mild intermittent asthma, stable without exacerbation. Continue albuterol nebulizer as needed. 3. Seizure disorder. Continue Topamax 200 mg twice daily. 4. Diabetes mellitus type 2. Patient is on Tradjenta and glipizide. 5. History of chronic headaches. Patient is on Imitrex and propranolol. Patient placed on the observation unit. Discharge plan: Return home today Impression and plan of care have been directed as dictated by the signing physician. Sheri Prieto nurse practitioner acting as scribe for signing physician.
== END 2018-07-14 16:15 | disposition home or self-care (01) ==
LOC: EC 09:44 → 6PED 16:57
PROVIDERS: ADMIT Family Medicine; ATTEND Family Medicine
DX: K29.70 Gastritis, unspecified, without bleeding (principal); E86.0 Dehydration; J45.20 Mild intermittent asthma, uncomplicated; G40.909 Epilepsy, unspecified, not intractable, without status epilepticus; E11.9 Type 2 diabetes mellitus without complications; K57.90 Diverticulosis of intestine, part unspecified, without perforation or abscess without bleeding; M72.2 Plantar fascial fibromatosis; E66.9 Obesity, unspecified; Z68.28 Body mass index [BMI] 28.0-28.9, adult; E28.2 Polycystic ovarian syndrome; G43.909 Migraine, unspecified, not intractable, without status migrainosus; Z79.84 Long term (current) use of oral hypoglycemic drugs; Z79.899 Other long term (current) drug therapy; Z88.0 Allergy status to penicillin; Z88.2 Allergy status to sulfonamides; Z88.5 Allergy status to narcotic agent; Z87.19 Personal history of other diseases of the digestive system; Z87.01 Personal history of pneumonia (recurrent); Z86.14 Personal history of Methicillin resistant Staphylococcus aureus infection; Z98.51 Tubal ligation status; Z87.891 Personal history of nicotine dependence; Z80.8 Family history of malignant neoplasm of other organs or systems; Z82.49 Family history of ischemic heart disease and other diseases of the circulatory system; Z82.0 Family history of epilepsy and other diseases of the nervous system
CPT/HCPCS: 96361 ×3; 96375 ×2; 96376 ×2; 96374; 99285; 36415; 93005; 80053 ×2; 82150; 82009; 83690; 83735; 84484; 85025 ×2; 81003; 81025; 80306; 83036; 74018; 76705; 74177; 78227; G0378 ×2; G0480; A9537; J2060; J2270; J2765 ×2; J2405; J2805; C9113; Q9967; 80320

== ENCOUNTER → 2018-12-02 | Outpatient (CLI) | payer OTHER | END | disposition home or self-care (01) | LOC: LABWHC1 17:04 | PROVIDERS: ATTEND Physician Assistant | DX: H02.409 Unspecified ptosis of unspecified eyelid (principal) | CPT/HCPCS: 36415 ==

== ENCOUNTER → 2022-03-22 | Outpatient (CLI) | payer OTHER ==
--- NOTE | 2022-03-23 18:24 | MM ---
Reason for Exam: Screening (asymptomatic). Last mammogram was performed 4 year(s) and 4 month(s) ago. Patient History: Menarche at age 11. First Full-Term at age 18. Maternal grandmother had breast cancer, age 50. Risk Values: Trish 5 year model risk: 0.7%. NCI Lifetime model risk: 8.7%. Prior Study Comparison: 12/13/2017 Bilateral Screening Mammogram, [facility]. Tissue Density: There are scattered fibroglandular densities. Findings: Analyzed By CAD. A few scattered benign round calcifications are unchanged. No significant change from prior exams. Overall Assessment: Negative, BI-RAD 1 Management: Screening Mammogram of both breasts in 1 year. 1. Patient should continue monthly self breast exams. 2. A clinical breast exam by your physician is recommended on an annual basis. 3. This exam should not preclude additional follow-up of suspicious palpable abnormalities. Electronically signed and approved by: Shayy Mclean M.D. Radiologist
== END | disposition home or self-care (01) ==
LOC: RADMAMWWP 16:29
PROVIDERS: ATTEND Obstetrics & Gynecology
DX: Z12.31 Encounter for screening mammogram for malignant neoplasm of breast (principal); Z80.3 Family history of malignant neoplasm of breast
CPT/HCPCS: 77067

== ENCOUNTER → 2022-09-04 | Outpatient (CLI) | payer OTHER ==
--- NOTE | 2022-09-04 20:02 | EEG ---
ELECTROENCEPHALOGRAM REPORT CLINICAL HISTORY: This is a 42-year-old woman with reported history of seizures, who has breakthrough seizures. The video EEG is obtained to evaluate for seizure and epileptiform activity. RELEVANT MEDICATION: Topamax. EEG TYPE: A routine 21-channel EEG is performed with video using the 10/20 electrode placement system. DESCRIPTION: Wakefulness is only obtained. During awake state, the posterior-dominant rhythm consists of [id number] voltage of 9 to 10 hertz activity that is well modulated and well sustained. There is no physiological stage 2 sleep architecture seen. There is no focal slowing. Interictal and ictal is none. ACTIVATION PROCEDURE: Photic stimulation did not evoke a posterior driving response. There is no abnormality during the photic stimulation. Hyperventilation is not performed. CLINICAL INTERPRETATION: This is a normal routine EEG. There is no focal slowing, epileptiform discharge, or seizure on the EEG. Normal routine EEG does not exclude underlying epilepsy. Clinical correlation is recommended. MMKASSIEL / IJLes: [id number] /
== END ==
LOC: NEUROMAIN 08:10
PROVIDERS: ATTEND Family Medicine
DX: G40.909 Epilepsy, unspecified, not intractable, without status epilepticus (principal); Z88.5 Allergy status to narcotic agent; Z88.0 Allergy status to penicillin; Z88.2 Allergy status to sulfonamides; Z87.891 Personal history of nicotine dependence
CPT/HCPCS: 95819

== ENCOUNTER → 2023-02-06 | Outpatient (CLI) | payer OTHER ==
--- NOTE | 2023-02-07 12:28 | US ---
EXAMINATION TYPE: US kidneys/renal and bladder DATE OF EXAM: 02/06/2023 COMPARISON: None CLINICAL INDICATION: Female, 42 years old with history of N39.9 DISORDER OF URINARY SYSTEM; EXAM MEASUREMENTS: Right Kidney: 10.6 x 5.5 x 5.1 cm Left Kidney: 10.2 x 5.9 x 5.2 cm Right Kidney: No hydronephrosis or masses seen Left Kidney: 0.4cm echogenic focus inferior pole. No hydronephrosis. Bladder: wnl Bilateral Jets seen: yes IMPRESSION: No hydronephrosis. Possible 4 mm nonobstructive left renal calculus.
== END | disposition home or self-care (01) ==
LOC: RADUSWWP 16:31
PROVIDERS: ATTEND Urology
DX: N39.9 Disorder of urinary system, unspecified (principal)
CPT/HCPCS: 76770

== ENCOUNTER 2023-03-23 12:46 | Emergency (ER) | payer OTHER ==
[2023-03-23 12:55] VITALS: PULSE 95; RESP 18; TEMP 97.7
[2023-03-23] MEDS ORDERED: ONDANSETRON 4 MG/2 ML VIAL IVP STA (13:09)
[2023-03-23] MEDS ORDERED: SODIUM CHLORIDE 0.9% 1,000 ML IV STA (13:09)
--- NOTE | 2023-03-23 13:13 | ED ---
General Adult HPI - General Chief complaint: Abdominal Pain Stated complaint: kidney stone Time Seen by Provider: 03/23/23 13:00 Source: patient, RN notes reviewed, old records reviewed Mode of arrival: wheelchair - History of Present Illness Initial comments: This a 43-year-old female presents emergency Department complaining of epigastric abdominal pain that she states now radiates to the left upper quadrant. Patient states this started on March 20 at which point time she went to [facility] they did a CAT scan and told her they could not find a cause for her abdominal pain. Patient states she continues to vomit and she vomited quite a bit today so she decided to come to our ER. Patient denies any diarrhea. Patient denies any chest pain difficulty breathing first breath per patient denies any fever or chills per patient denies any back pain. Patient denies any dysuria hematuria urinary frequency. - Related Data Home Medications Medication Instructions Recorded Confirmed Albuterol Inhaler [Ventolin Hfa 1 - 2 puff INHALATION RT-Q6H PRN 04/15/17 07/13/18 Inhaler] Propranolol HCl 40 mg PO DAILY 01/13/18 07/13/18 SUMAtriptan succinate [Imitrex] 100 mg PO DAILY PRN 01/13/18 07/13/18 Topiramate [Topiramate ER] 200 mg PO DAILY 01/13/18 07/13/18 HYDROcodone/APAP 10-325MG [[place] 1 tab PO Q6HR PRN 01/14/18 07/13/18 10-325] Linagliptin [Tradjenta] 5 mg PO DAILY 07/13/18 07/13/18 glipiZIDE [Glucotrol] 5 mg PO AC-BID 07/13/18 07/13/18 Previous Rx's Medication Instructions Recorded Famotidine [Pepcid] 20 mg PO DAILY #30 tablet 07/14/18 Ondansetron [Zofran] 4 mg PO Q8HR PRN #30 tab 07/14/18 Metoclopramide [Reglan] 5 mg PO ACHS PRN #10 tab 03/23/23 Allergies Allergy/AdvReac Type Severity Reaction Status Date / Time codeine AdvReac Nausea & Verified 03/23/23 12:55 Vomiting Penicillins AdvReac Nausea & Verified 03/23/23 12:55 Vomiting Sulfa (Sulfonamide AdvReac Nausea & Verified 03/23/23 12:55 Antibiotics) Vomiting tramadol AdvReac Unknown Verified 03/23/23 12:55 Review of Systems ROS Statement: Those systems with pertinent positive or pertinent negative responses have been documented in the HPI. ROS Other: All systems not noted in ROS Statement are negative. Past Medical History Past Medical History: Asthma, Diabetes Mellitus, GI Bleed, Seizure Disorder Additional Past Medical History / Comment(s): NIDDM type II, grand mall seizure once in 2017, lower GI bleed, mild diverticular dx, PCOS, bronchitis, pneumonia, migraines, allergic rhinitis. History of Any Multi-Drug Resistant Organisms: MRSA, None Reported Date of last positivie culture/infection: 2011 MDRO Source:: Lungs Past Surgical History: Section, Tubal Ligation Additional Past Surgical History / Comment(s): colonoscopies, R groin mole removed then resected d/t abnormal cells-bening. Past Anesthesia/Blood Transfusion Reactions: No Reported Reaction Past Psychological History: No Psychological Hx Reported Past Alcohol Use History: Rare Past Drug Use History: None Reported - Past Family History Father Family Medical History: Cancer Additional Family Medical History / Comment(s): COLON, MELANOMA ON HIS CHEST AND HE ALSO HAS BENIGN BRAIN TUMORS 2, diabetes, pancreatic cancer. FATHER IS 68 YRS OLD. Mother Family Medical History: Cancer, Dialysis Additional Family Medical History / Comment(s): MELANOMA THAT METASTASIZED TO THE BRAIN- FROM AT AGE 49 YRS. Mother had an IL at age 34 and history of d iabetes. Patient has many aunts, uncles and nieces with diabetes on her mother's side. Brother(s) Additional Family Medical History / Comment(s): Patient has one half-brother and one full brother with no major medical problems. Patient has 1 sister with no major medical problems. Daughter(s) Additional Family Medical History / Comment(s): Patient has 2 daughters and her youngest daughter has history of seizure disorder. Patient has one son with no major medical problems. General Exam - General Exam Comments Initial Comments: GENERAL: Patient is well-developed and well-nourished. Patient is nontoxic and well- hydrated and is in mild distress. ENT: Neck is soft and supple. No significant lymphadenopathy is noted. Oropharynx is clear. Moist mucous membranes. Neck has full range of motion without eliciting any pain. EYES: The sclera were anicteric and conjunctiva were pink and moist. Extraocular movements were intact and pupils were equal round and reactive to light. Eyelids were unremarkable. PULMONARY: Unlabored respirations. Good breath sounds bilaterally. No audible rales rhonchi or wheezing was noted. CARDIOVASCULAR: There is a regular rate and rhythm without any murmurs gallops or rubs. ABDOMEN: Minimal epigastric abdominal tenderness SKIN: Skin is clear with no lesions or rashes and otherwise unremarkable. NEUROLOGIC: Patient is alert and oriented x3. Cranial nerves II through XII are grossly intact. Motor and sensory are also intact. Normal speech, volume and content. Symmetrical smile. MUSCULOSKELETAL: Normal extremities with adequate strength and full range of motion. LYMPHATICS: No significant lymphadenopathy is noted PSYCHIATRIC: Normal psychiatric evaluation. Course Vital Signs 03/23/23 12:52 Temperature 97.7 F Pulse Rate 95 Respiratory 18 Rate Blood Pressure 121/78 O2 Sat by Pulse 99 Oximetry Medical Decision Making - Medical Decision Making EKG was interpreted by myself that showed a sinus rhythm at 90 bpm [place] interval was 140 QRS is 87 QT interval 373 QTC is 421. Patient's EKG shows no ST segment elevation or depression Was pt. sent in by a medical professional or institution (EVIE Killian, [employer], urgent care, hospital, or penitentiary...) When possible be specific @ -No Did you speak to anyone other than the patient for history (EMS, parent, family, police, friend...)? What history was obtained from this source @ -No Did you review nursing and triage notes (agree or disagree)? Why? @ -I reviewed and agree with nursing and triage notes Were old charts reviewed (outside hosp., previous admission, EMS record, old EKG, old radiological studies, urgent care reports/EKG's, penitentiary records)? Report findings @ -I reviewed prior charts lab work on this patient Differential Diagnosis (chest pain, altered mental status, abdominal pain women, abdominal pain men, vaginal bleeding, weakness, fever, dyspnea, syncope, headache, dizziness, GI bleed, back pain, seizure, CVA, palpatations, mental hea lth, musculoskeletal)? @ -Differential Abdominal Pain Women: Appendicitis, Cholecystitis, diverticulosis, ischemic bowel, pancreatitis, hepatitis, UTI, gastroenteritis, AAA, incarcerated hernia, bowel obstruction, constipation, inflammatory bowel, hepatitis, peptic ulcer disease, splenic infarction, perforated viscus, vulvitis, ovarian torsion, PID, kidney stone, placenta abruption, this is not meant to be an all-inclusive list EKG interpreted by me (3pts min.). @ -As above X-rays interpreted by me (1pt min.). @ -KUB shows no acute abnormality CT interpreted by me (1pt min.). @ -None done U/S interpreted by me (1pt. min.). @ -None done What testing was considered but not performed or refused? (CT, X-rays, U/S, labs)? Why? @ -None What meds were considered but not given or refused? Why? @ -None Did you discuss the management of the patient with other professionals (professionals i.e. , PA, [employer], lab, RT, psych nurse, social studies teacher, criminal lawyer, teacher, multisensor intelligence officer, case management associate)? Give summary @ -No Was smoking cessation discussed for >3mins.? @ -No Was critical care preformed (if so, how long)? @ -No Were there social determinants of health that impacted care today? How? (Homelessness, low income, unemployed, alcoholism, drug addiction, transportation, low edu. Level, literacy, decrease access to med. care, detention, rehab)? @ -No Was there de-escalation of care discussed even if they declined (Discuss DNR or withdrawal of care, Hospice)? DNR status @ -No What co-morbidities impacted this encounter? (DM, HTN, Smoking, COPD, CAD, Cancer, CVA, ARF, Chemo, Hep., AIDS, mental health diagnosis, sleep apnea, morbid obesity)? @ -None Was patient admitted / discharged? Hospital course, mention meds given and route, prescriptions, significant lab abnormalities, going to OR and other perti nent info. @ -Patient was given Zofran and fluids in the hospital and she no longer any vomiting was feeling better. I did try to contact [facility] and get the CAT scan results however they were unable to provide him for some reason. Since patient was feeling better I will send her home on Reglan she said the Zofran wasn't preventing her from vomiting. Undiagnosed new problem with uncertain prognosis? @ -No Drug Therapy requiring intensive monitoring for toxicity (Heparin, Nitro, Insulin, Cardizem)? @ -No Were any procedures done? @ -No Diagnosis/symptom? @ -Gastritis Acute, or Chronic, or Acute on Chronic? @ -Acute Uncomplicated (without systemic symptoms) or Complicated (systemic symptoms)? @ -Complicated Side effects of treatment? @ -No Exacerbation, Progression, or Severe Exacerbation? @ -No Poses a threat to life or bodily function? How? (Chest pain, USA, IL, pneumonia, PE, COPD, DKA, ARF, appy, cholecystitis, CVA, Diverticulitis, Homicidal, Suicidal, threat to staff... and all critical care pts) @ -No - Lab Data Result diagrams: 03/23/23 13:17 03/23/23 13:17 Lab Results 03/23/23 03/23/23 03/23/23 Range/Units 13:17 13:17 13:17 WBC 7.1 (3.8-10.6) k/uL RBC 4.36 (3.80-5.40) m/uL Hgb 12.4 (11.4-16.0) gm/dL Hct 36.4 (34.0-46.0) % MCV 83.6 (80.0-100.0) fL MCH 28.4 (25.0-35.0) pg MCHC 34.0 (31.0-37.0) g/dL RDW 14.1 (11.5-15.5) % Plt Count 237 (150-450) k/uL MPV 8.8 Neutrophils % 76 % Lymphocytes % 12 % Monocytes % 7 % Eosinophils % 1 % Basophils % 0 % Neutrophils # 5.4 (1.3-7.7) k/uL Lymphocytes # 0.8 L (1.0-4.8) k/uL Monocytes # 0.5 (0-1.0) k/uL Eosinophils # 0.1 (0-0.7) k/uL Basophils # 0.0 (0-0.2) k/uL Sodium 133 L (137-145) mmol/L Potassium 4.7 (3.5-5.1) mmol/L Chloride 99 (98-107) mmol/L Carbon Dioxide 21 L (22-30) mmol/L Anion Gap 13 mmol/L BUN 21 H (7-17) mg/dL Creatinine 0.89 (0.52-1.04) mg/dL Est GFR (CKD-EPI)AfAm >90 (>60 ml/min/1.73 sqM) Est GFR (CKD-EPI)NonAf 79 (>60 ml/min/1.73 sqM) Glucose 315 H (74-99) mg/dL Calcium 9.9 (8.4-10.2) mg/dL Total Bilirubin 0.5 (0.2-1.3) mg/dL AST 18 (14-36) U/L ALT 16 (4-34) U/L Alkaline Phosphatase 105 (38-126) U/L Troponin I <0.012 (0.000-0.034) ng/mL Total Protein 7.0 (6.3-8.2) g/dL Albumin 3.8 (3.5-5.0) g/dL Amylase 34 (30-110) U/L Lipase 136 (23-300) U/L Disposition Clinical Impression: Gastritis Disposition: HOME SELF-CARE Condition: Good Instructions (If sedation given, give patient instructions): Gastritis (ED) Prescriptions: Metoclopramide [Reglan] 5 mg PO ACHS PRN #10 tab PRN Reason: Nausea And Vomiting Is patient prescribed a controlled substance at d/c from ED?: No Referrals: Rivera Tripp DO [Primary Care Provider] - 1-2 days Time of Disposition: 14:50
--- NOTE | 2023-03-23 13:47 | XR ---
EXAMINATION TYPE: XR KUB DATE OF EXAM: 03/23/2023 COMPARISON: KUB radiograph 07/13/2018, CT abdomen pelvis 07/13/2018, renal ultrasound 02/06/2023. HISTORY: Abdominal pain TECHNIQUE: Frontal view of the abdomen was obtained with 2 radiographs. FINDINGS: Small bowel demonstrates no evidence for dilatation or air fluid levels. Gas and fecal material is seen in non-distended colon. No convincing evidence for pneumoperitoneum. 3 mm calculus in the region of the left renal pelvis at the level of L3 on 4. The lung bases are clear. The osseous structures are intact. IMPRESSION: 1. Overall nonobstructive bowel gas pattern. Mild colonic stool burden. 2. 3 mm calculus in the region of the left renal pelvis. Consider further evaluation with CT abdomen pelvis if there is concern for left-sided obstructive uropathy.
[2023-03-23 14:03] LABS: Basophils % (A) 0 %; Eosinophils # (A) 0.1 k/uL (0-0.7); Eosinophils % (A) 1 %; HCT 36.4 % (34.0-46.0); HGB 12.4 gm/dL (11.4-16.0); Lymphocytes # (A) 0.8 k/uL (1.0-4.8); Lymphocytes % (A) 12 %; MCH 28.4 pg (25.0-35.0); MCV 83.6 fL (80.0-100.0); Mean Platelet Volume 8.8; Monocytes # (A) 0.5 k/uL (0-1.0); Monocytes % (A) 7 %; Neutrophils # (A) 5.4 k/uL (1.3-7.7); Neutrophils % (A) 76 %; Platelet Count 237 k/uL (150-450); RBC 4.36 m/uL (3.80-5.40); RDW 14.1 % (11.5-15.5); WBC 7.1 k/uL (3.8-10.6)
[2023-03-23 14:10] LABS: Potassium 4.7 mmol/L (3.5-5.1)
[2023-03-23 14:11] LABS: ALT 16 U/L (4-34); AST 18 U/L (14-36); African American GFR (CKD) >90 (>60 ml/min/1.73 sqM); Albumin 3.8 g/dL (3.5-5.0); Alkaline Phosphatase 105 U/L (38-126); Amylase 34 U/L (30-110); Anion Gap 13 mmol/L; Blood Urea Nitrogen 21 mg/dL (7-17); Calcium 9.9 mg/dL (8.4-10.2); Carbon Dioxide 21 mmol/L (22-30); Chloride 99 mmol/L (98-107); Glucose 315 mg/dL (74-99); Lipase 136 U/L (23-300); Non-African American GFR(CKD) 79 (>60 ml/min/1.73 sqM); Sodium 133 mmol/L (137-145); Total Bilirubin 0.5 mg/dL (0.2-1.3)
[2023-03-23 15:21] VITALS: BP 124/90
== END 2023-03-23 15:34 | disposition home or self-care (01) ==
LOC: EC 12:46
DX: K29.70 Gastritis, unspecified, without bleeding (principal); E11.9 Type 2 diabetes mellitus without complications; J45.909 Unspecified asthma, uncomplicated; Z79.84 Long term (current) use of oral hypoglycemic drugs; Z79.899 Other long term (current) drug therapy; Z88.0 Allergy status to penicillin; Z88.1 Allergy status to other antibiotic agents; Z88.2 Allergy status to sulfonamides; Z88.5 Allergy status to narcotic agent; Z88.8 Allergy status to other drugs, medicaments and biological substances
CPT/HCPCS: 36415; 93005; 80053; 82150; 83690; 84484; 85025; 74018; 99284; 96374; 96361; J2405

== ENCOUNTER 2023-03-26 12:55 | Day surgery (SDC) | payer OTHER ==
--- NOTE | 2023-03-26 09:43 | P.HPIHPCON ---
History of Present Illness H&P Date: 03/26/23 Chief Complaint: Left ureteral stone This is a 43-year-old female with history of a 4 mm left-sided proximal stone, she is symptomatic from her stone and having intractable pain. Option of a left-sided ureteroscopy with holmium laser was discussed with her. aware of the risk which includes but not limited to bleeding, infection, injury to ureter. She understood all the risk and agreed to proceed left-sided ureteroscopy with holmium laser lithotripsy, stone basketing and stent insertion Consent for Procedure: I have explained the operation/procedure to the patient, including the risks, benefits, side effects, alternative therapies (including not receiving the proposed treatment or service), the likelihood of the patient achieving his/her goals, and potential recuperation problems for the procedure/sedation/analgesia, as well as any blood products, if indicated. I also explained to the patient the risks, benefits and side effects of the alternatives, as well as the risks related to not receiving the proposed procedure, care, treatment, or services. Past Medical History Past Medical History: Asthma, Diabetes Mellitus, GI Bleed, Seizure Disorder Additional Past Medical History / Comment(s): NIDDM type II, grand mall seizure once in 2017, lower GI bleed, mild diverticular dx, PCOS, bronchitis, pneumonia, migraines, allergic rhinitis. History of Any Multi-Drug Resistant Organisms: MRSA, None Reported Date of last positivie culture/infection: 2011 MDRO Source:: Lungs Past Surgical History: Section, Tubal Ligation Additional Past Surgical History / Comment(s): colonoscopies, R groin mole removed then resected d/t abnormal cells-bening. Past Anesthesia/Blood Transfusion Reactions: No Reported Reaction Past Psychological History: No Psychological Hx Reported Past Alcohol Use History: Rare Past Drug Use History: None Reported - Past Family History Father Family Medical History: Cancer Additional Family Medical History / Comment(s): COLON, MELANOMA ON HIS CHEST AND HE ALSO HAS BENIGN BRAIN TUMORS 2, diabetes, pancreatic cancer. FATHER IS 68 YRS OLD. Mother Family Medical History: Cancer, Dialysis Additional Family Medical History / Comment(s): MELANOMA THAT METASTASIZED TO THE BRAIN- FROM AT AGE 49 YRS. Mother had an AR at age 34 and history of diabetes. Patient has many aunts, uncles and nieces with diabetes on her mother's side. Brother(s) Additional Family Medical History / Comment(s): Patient has one half-brother and one full brother with no major medical problems. Patient has 1 sister with no major medical problems. Daughter(s) Additional Family Medical History / Comment(s): Patient has 2 daughters and her youngest daughter has history of seizure disorder. Patient has one son with no major medical problems. Medications and Allergies Home Medications Medication Instructions Recorded Confirmed Type Albuterol Inhaler [Ventolin Hfa 1 - 2 puff INHALATION RT-Q6H PRN 04/15/17 07/13/18 History Inhaler] Propranolol HCl 40 mg PO DAILY 01/13/18 07/13/18 History SUMAtriptan succinate [Imitrex] 100 mg PO DAILY PRN 01/13/18 07/13/18 History Topiramate [Topiramate ER] 200 mg PO DAILY 01/13/18 07/13/18 History HYDROcodone/APAP 10-325MG [[place] 1 tab PO Q6HR PRN 01/14/18 07/13/18 History 10-325] Linagliptin [Tradjenta] 5 mg PO DAILY 07/13/18 07/13/18 History glipiZIDE [Glucotrol] 5 mg PO AC-BID 07/13/18 07/13/18 History Famotidine [Pepcid] 20 mg PO DAILY #30 tablet 07/14/18 Rx Ondansetron [Zofran] 4 mg PO Q8HR PRN #30 tab 07/14/18 Rx Metoclopramide [Reglan] 5 mg PO ACHS PRN #10 tab 03/23/23 Rx Allergies Allergy/AdvReac Type Severity Reaction Status Date / Time codeine AdvReac Nausea & Verified 03/23/23 12:55 Vomiting Penicillins AdvReac Nausea & Verified 03/23/23 12:55 Vomiting Sulfa (Sulfonamide AdvReac Nausea & Verified 03/23/23 12:55 Antibiotics) Vomiting tramadol AdvReac Unknown Verified 03/23/23 12:55 Surgical - Exam - General no distress, no pain - Eyes normal ocular movement, no pale - ENT normal nares, normal mucosa - Respiratory normal expansion, normal respiratory effort - Abdomen Abdomen: soft, non tender - Psychiatric oriented to time, oriented to person, oriented to place Assessment and Plan Assessment: OR for left-sided ureteroscopy, holmium laser lithotripsy, stone basketing and stent insertion
[~2023-03-26 12:55] MED LIST changes: +DEXAMETHASONE SOD PHOSPHATE 4 MG/ML 1 ML VIAL IV ONE; +LIDOCAINE 1% (10MG/ML) FOR IV START INTRADERMA PRN; -LIDOCAINE 1% 20 ML VIAL (10MG/ML) FOR IV START INTRADERMA PRN; +ONDANSETRON 4 MG/2 ML VIAL IVP ONE; +droPERidol 5 MG/2 ML VIAL IVP ONE; +fentaNYL (PF) 50 MCG/ML 2 ML AMP IV PRN
[2023-03-26 13:49] LABS: Glucose,Whole Blood 335 mg/dL (70-110)
[2023-03-26] MEDS ORDERED: INSULIN ASPART (NovoLOG) 100 UNIT/ML VIAL SQ ONE (14:18)
--- NOTE | 2023-03-26 14:18 | XR ---
EXAMINATION TYPE: XR KUB DATE OF EXAM: 03/26/2023 1:17 PM INDICATION: Patient age:Female; 43 years old; Reason for study: Suspected left kidney stone; COMPARISON: 03/23/2023. TECHNIQUE: One radiographic view of the abdomen was obtained. FINDINGS: Large amount stool throughout colon. The bowel gas pattern is nonspecific without dilated l oops of small or large bowel. There is no evidence for organomegaly or pneumoperitoneum. The osseous structures are intact. Fecal material and gas are demonstrated throughout the colon and rectum. T here may be a left ureteral calculus projecting over spinous process of L3 measuring 3 mm. Additional right-sided possible calculus in the ureter measuring 3 mm over the spinous process of L4. IMPRESSION: Large stool burden throughout the colon., Nonspecific bowel gas pattern without radiographic evidence for acute process. Poor visualization of the kidneys due to large stool burden.
[2023-03-26] MEDS ORDERED: LIDOCAINE 2% INJ 20 MG/ML (2 ML VIAL) ONE (15:35)
[2023-03-26] MEDS ORDERED: SUCCINYLCHOLINE CHLORIDE 200 MG/10 ML VIAL IV ONE (15:35)
[2023-03-26] MEDS ORDERED: PROPOFOL 10 MG/ML 20 ML VIAL IV ONE (15:35)
[2023-03-26] MEDS ORDERED: MIDAZOLAM 2 MG/2 ML VIAL ONE (15:35)
[2023-03-26] MEDS ORDERED: fentaNYL (PF) 50 MCG/ML 2 ML AMP ONE (15:35)
[2023-03-26] MEDS ORDERED: IOHEXOL 350 MG/ML 100 ML in EMPTY BAG 1 BAG IRRIGATION ONE (16:02)
--- NOTE | 2023-03-26 16:30 | P.OP ---
Date of Procedure: 03/26/23 Preoperative Diagnosis: Left ureteral stone Postoperative Diagnosis: Same Procedure(s) Performed: Cystoscopy, left ureteroscopy, holmium laser lithotripsy, stone basketing and stent insertion Implants: 6-[place]ijani by 22 cm stent in the left ureter Anesthesia: GILBERTO Surgeon: Jeff Davila Estimated Blood Loss (ml): 5 Pathology: other (left ureteral stone) Condition: stable Disposition: PACU Indications for Procedure: This is a 43-year-old female with history of a 4 mm left-sided proximal stone, she is symptomatic from her stone and having intractable pain. Option of a left-sided ureteroscopy with holmium laser was discussed with her. aware of the risk which includes but not limited to bleeding, infection, injury to ureter. She understood all the risk and agreed to proceed left-sided ureteroscopy with holmium laser lithotripsy, stone basketing and stent insertion Operative Findings: Impacted stone at the left proximal ureter Description of Procedure: Patient brought to the operating room, general anesthesia was induced. She was prepped and draped in sterile fashion and placed in dorsal lithotomy position. Cystoscopy fitted 21-Azerbaijani sheath was inserted per urethra, cystoscopy was perf ormed which showed no abnormality within the bladder. Attention was then carried to the left ureteral orifice which was intubated with a sensor wire. Next an 1113 [place] access sheath was passed over the wire and into the mid ureter. Next flexibile ureteroscope was inserted through the access sheath, at this ureteral stricture was encountered at the proximal ureter just distal to the stone . At this time the wire was repassed and the ureteroscope was withdrawn with the wire in place. Next the 15-[place]ijani balloon dilator was passed over the wire, and under fluoroscopy the stricture was dilated. At this time the flexible ureteroscope was reinserted through the access sheath, I was able to pass the scope past the stricture and a stone that was completely impacted was encountered. At this point using the holmium laser the stone was carefully dusted, sizable fragments of the stone were grasped using the stone basket. At this time there was significant amount of ureteral edema secondary to stone impaction, and the course of the proximal ureter was tortuous, I attempted to pass the scope past the edema and into the kidney to address the rest the renal stone but there was resistance met. At this point given the risk of ureteral injury the decision was made not to proceed with removing the renal stones. At this time pullback ureteroscopy was performed which showed no injury to the ureter or any stone fragments, of note at the area of ureteral balloon dilation there was mucosal separation, but no evidence of perforation of the ureter. As the ureteroscope was withdrawn and a sensor wire was advanced through. Next a ureteral stent was passed over the wire, the proximal curl was visualized on fluoroscopy and the distal curl was visualized using the cystoscope. The bladd er was emptied at the end of the case. Patient tolerated the procedure well and was taken to recovery in stable condition. Plan would be to follow-up as an outpatient in 4 weeks for cystoscopy stent removal
[2023-03-26 16:36] VITALS: TEMP 97
[2023-03-26 16:42] LABS: Glucose,Whole Blood 254 mg/dL (70-110)
[2023-03-26 16:47] VITALS: RESP 16
[2023-03-26] MEDS ORDERED: ONDANSETRON 4 MG/2 ML VIAL IVP ONE (17:07)
--- NOTE | 2023-03-26 17:09 | FL ---
Intraoperative/procedural fluoroscopic services were provided. Total fluoroscopy time is 20 seconds w ith a total of 1 submitted images to PACS. Please see the operative/procedural note for further detai ls. DAP: [id number]
[2023-03-26] MEDS ORDERED: LACTATED RINGERS 1,000 ML IV ONE (17:12)
[2023-03-26 17:31] VITALS: BP 170/86; PULSE 72
== END 2023-03-26 17:41 | disposition home or self-care (01) ==
LOC: OR 12:55
PROVIDERS: ATTEND Urology
DX: N20.1 Calculus of ureter (principal); N13.5 Crossing vessel and stricture of ureter without hydronephrosis; E78.5 Hyperlipidemia, unspecified; J45.909 Unspecified asthma, uncomplicated; F10.90 Alcohol use, unspecified, uncomplicated; J18.9 Pneumonia, unspecified organism; E11.9 Type 2 diabetes mellitus without complications; K21.9 Gastro-esophageal reflux disease without esophagitis; G43.909 Migraine, unspecified, not intractable, without status migrainosus; E28.2 Polycystic ovarian syndrome; Z87.19 Personal history of other diseases of the digestive system; Z86.73 Personal history of transient ischemic attack (TIA), and cerebral infarction without residual deficits; Z86.14 Personal history of Methicillin resistant Staphylococcus aureus infection; Z79.51 Long term (current) use of inhaled steroids; Z79.84 Long term (current) use of oral hypoglycemic drugs; Z79.899 Other long term (current) drug therapy; Z88.0 Allergy status to penicillin; Z88.5 Allergy status to narcotic agent; Z88.2 Allergy status to sulfonamides
CPT/HCPCS: 74018; 52356; C2617; C1769; J2250; J0330; J0690; J2405; J3010; J2704; Q9967; J2001

== ENCOUNTER 2023-03-26 22:40 | Emergency (ER) | payer OTHER ==
--- NOTE | 2023-03-27 00:27 | ED ---
General Adult HPI - General Source: family, RN notes reviewed Mode of arrival: wheelchair Limitations: no limitations <Nuzhat Horton - Last Filed: 03/27/23 04:17> <Kwan Frederick - Last Filed: 03/27/23 06:27> - General Chief complaint: Nausea/Vomiting/Diarrhea Stated complaint: V/N Post Op comp Time Seen by Provider: 03/27/23 00:25 - History of Present Illness Initial comments: 43-year-old female past medical history significant for recent lithotripsy performed at this hospital earlier today performed by Dr. coreas presents the emergency department with worsening nausea and vomiting. She rep orts that she had a stent placed however they were unable to remove the stone at the time of placement. She is discharged home earlier today however reports worsening nausea vomiting and bilateral lower quadrant abdominal pain. She denies any fever or chills. (Nuzhat Horton) - Related Data Home Medications Medication Instructions Recorded Confirmed Albuterol Inhaler [Ventolin Hfa 1 - 2 puff INHALATION RT-Q6H PRN 04/15/17 03/26/23 Inhaler] Propranolol HCl 20 mg PO DAILY 01/13/18 03/26/23 SUMAtriptan succinate [Imitrex] 100 mg PO DAILY PRN 01/13/18 03/26/23 Topiramate [Topiramate ER] 200 mg PO DAILY 01/13/18 03/26/23 HYDROcodone/APAP 10-325MG [[place] 1 tab PO Q6HR PRN 01/14/18 03/26/23 10-325] Biotin [Blft-Vjzu-Qfsyi] 10,000 mcg PO DAILY 03/26/23 03/26/23 Cholecalciferol [Vitamin D3 (25 25 mcg PO DAILY 03/26/23 03/26/23 Mcg = 1000 Iu)] Ibuprofen [Advil] 200 mg PO Q6HR PRN 03/26/23 03/26/23 Loratadine [Claritin] 10 mg PO DAILY 03/26/23 03/26/23 Rosuvastatin Calcium 40 mg PO DAILY 03/26/23 03/26/23 Semaglutide [Rybelsus] 3 mg PO DAILY 03/26/23 03/26/23 Previous Rx's Medication Instructions Recorded Famotidine [Pepcid] 20 mg PO DAILY #30 tablet 07/14/18 Ondansetron [Zofran] 4 mg PO Q8HR PRN #30 tab 07/14/18 Ciprofloxacin HCl [Cipro] 250 mg PO Q12HR #10 tablet 03/26/23 Ketorolac [Toradol] 10 mg PO Q6HR PRN #15 tab 03/26/23 Metoclopramide [Reglan] 10 mg PO Q12HR PRN 7 Days #14 tab 03/27/23 Allergies Allergy/AdvReac Type Severity Reaction Status Date / Time codeine AdvReac Nausea & Verified 03/26/23 22:47 Vomiting Penicillins AdvReac Nausea & Verified 03/26/23 22:47 Vomiting Sulfa (Sulfonamide AdvReac Nausea & Verified 03/26/23 22:47 Antibiotics) Vomiting tramadol AdvReac Unknown Verified 03/26/23 22:47 Review of Systems ROS Other: All systems not noted in ROS Statement are negative. <Nuzhat Horton - Last Filed: 03/27/23 04:17> ROS Other: All systems not noted in ROS Statement are negative. <Kwan Frederick - Last Filed: 03/27/23 06:27> ROS Statement: Those systems with pertinent positive or pertinent negative responses have been documented in the HPI. Past Medical History Past Medical History: Asthma, Diabetes Mellitus, GI Bleed, Seizure Disorder Additional Past Medical History / Comment(s): NIDDM type II, [place] seizure once in 2017, lower GI bleed, mild diverticular dx, PCOS, bronchitis, pneumonia, migraines, allergic rhinitis. Kidney stones History of Any Multi-Drug Resistant Organisms: MRSA, None Reported Date of last positivie culture/infection: 2011 MDRO Source:: Lungs Past Surgical History: Section, Tubal Ligation Additional Past Surgical History / Comment(s): colonoscopies, R groin mole removed then resected d/t abnormal cells-bening. Past Anesthesia/Blood Transfusion Reactions: No Reported Reaction Past Psychological History: No Psychological Hx Reported Smoking Status: Never smoker Past Alcohol Use History: Rare Past Drug Use History: None Reported - Past Family History Father Family Medical History: Cancer Additional Family Medical History / Comment(s): COLON, MELANOMA ON HIS CHEST AND HE ALSO HAS BENIGN BRAIN TUMORS 2, diabetes, pancreatic cancer. FATHER IS 68 YRS OLD. Mother Family Medical History: Cancer, Dialysis Additional Family Medical History / Comment(s): MELANOMA THAT METASTASIZED TO THE BRAIN- FROM AT AGE 49 YRS. Mother had an RI at age 34 and history of diabetes. Patient has many aunts, uncles and nieces with diabetes on her mother's side. Brother(s) Additional Family Medical History / Comment(s): Patient has one half-brother and one full brother with no major medical problems. Patient has 1 sister with no major medical problems. Daughter(s) Additional Family Medical History / Comment(s): Patient has 2 daughters and her youngest daughter has history of seizure disorder. Patient has one son with no major medical problems. <Nuzhat Horton - Last Filed: 03/27/23 04:17> General Exam Limitations: no limitations <Nuzhat Horton - Last Filed: 03/27/23 04:17> - General Exam Comments Initial Comments: Visual Physical Exam Vital signs reviewed General: Well-appearing, nontoxic, no acute distress. Head: Normocephalic, atraumatic Eyes: PERRLA, EOMI ENT: Airway patent Chest: Nonlabored breathing Skin: No visual rash, normal skin tone Neuro: Alert and oriented 3 Musculoskeletal: No gross abnormalities General: Alert, in no acute distress Head: atraumatic normocephalic. Eyes PERRL, EOMI intact, mucous membranes moist Respiratory: Lungs clear to auscultation bilaterally Cardiovascular: Tachycardic Abdominal: Soft without guarding or rebound Extremities: Normal inspection with full range of motion and normal capillary refill Neuroogic: alert and oriented 3, CN II-XII intact, able to ambulate with steady gait Skin: warm dry and intact with normal color (Nuzhat Horton) Course <Nuzhat Horton - Last Filed: 03/27/23 04:17> Vital Signs 03/26/23 03/27/23 03/27/23 22:43 05:11 05:59 Temperature 97.8 F 98.0 F Pulse Rate 123 H 105 H Respiratory 20 18 Rate Blood Pressure 176/124 112/80 O2 Sat by Pulse 99 98 Oximetry - Reevaluation(s) Reevaluation #2: 03/27/23 03:21 Patient reevaluated and updated on initial laboratory results. Aware of CT results pending Patient is still reporting nausea and vomiting. (Nuzhat Horton) Medical Decision Making - Lab Data Result diagrams: 03/27/23 01:27 03/27/23 01:27 <Nuzhat Horton - Last Filed: 03/27/23 04:17> - Lab Data Result diagrams: 03/27/23 01:27 03/27/23 01:27 <Kwan Frederick - Last Filed: 03/27/23 06:27> - Medical Decision Making Was pt. sent in by a medical professional or institution ([facility], PLASTERER HELPER, urgent care, hospital, or penitentiary...) When possible be specific @ -[No] Did you speak to anyone other than the patient for history (EMS, parent, family, police, friend...)? What history was obtained from this source @ -[No] Did you review nursing and triage notes (agree or disagree)? Why? @ -[I reviewed and agree with nursing and triage notes] Were old charts reviewed (outside hosp., previous admission, EMS record, old EKG, old radiological studies, urgent care reports/EKG's, penitentiary records)? Report findings @ -[No old charts were reviewed] Differential Diagnosis (chest pain, altered mental status, abdominal pain women, abdominal pain men, vaginal bleeding, weakness, fever, dyspnea, syncope, headache, dizziness, GI bleed, back pain, seizure, CVA, palpatations, mental health, musculoskeletal)? @ -[not applicable] EKG interpreted by me (3pts min.). @ -[As above] X-rays interpreted by me (1pt min.). @ Abdominal x-ray does not reveal any evidence of perforation CT interpreted by me (1pt min.). @ -[None done] U/S interpreted by me (1pt. min.). @ -[None done] What testing was considered but not performed or refused? (CT, X-rays, U/S, labs)? Why? @ -[None] What meds were considered but not given or refused? Why? @ -[None] Did you discuss the management of the patient with other professionals (professionals i.e. [facility]ian, PLASTERER HELPER, lab, RT, psych nurse, social service director, reed or wind instrument repairer, teacher, fisheries technical officer, case management specialist)? Give summary @ -[No] Was smoking cessation discussed for >3mins.? @ -[No] Was critical care preformed (if so, how long)? @ -[No] Were there social determinants of health that impacted care today? How? (Homelessness, low income, unemployed, alcoholism, drug addiction, transportation, low edu. Level, literacy, decrease access to med. care, assisted, rehab)? @ -[No] Was there de-escalation of care discussed even if they declined (Discuss DNR or withdrawal of care, Hospice)? DNR status @ -[No] What co-morbidities impacted this encounter? (DM, HTN, Smoking, COPD, CAD, Cancer, CVA, ARF, Chemo, Hep., AIDS, mental health diagnosis, sleep apnea, morbid obesity)? @ -[None] Was patient admitted / discharged? Hospital course, mention meds given and route, prescriptions, significant lab abnormalities, going to OR and other pertinent info. @ Disposition Pending. This is a 43-year-old female presents the emergency department with nausea and vomiting. Patient had a thorough history and physical exam performed on the ED. Patient is tachycardic on exam. Patient continues to have intractable nausea and vomiting during the course of the ED. She had lab work which revealed: WBCs 11.7 hemoglobin 13.8 venous blood class reveals pH of 7.36 CO2 35 bicarb 19 sodium 138, potassium 4.1 04/16/2011 creatinine 0.75 glucose is 333 lactic acid 1.1 Urinalysis reveals 1+ protein, Glucose 4+ ketones 2+, with large amount of blood Patient was reevaluated multiple times during the course of the ED. Patient continues to complain of nausea, vomiting, worsening abdominal pain. Patient will be signed out to Dr. Frederick who will assume care with the patient pending CT results in continuation of care. Patient is agreeable with the current plan. Undiagnosed new problem with uncertain prognosis? @ -[No] Drug Therapy requiring intensive monitoring for toxicity (Heparin, Nitro, Insulin, Cardizem)? @ -[No] Were any procedures done? @ -[No] Diagnosis/symptom? @ -Abdominal Pain - Nausea and Vomiting - Hyperglycemia -S/P lithotripsy Acute, or Chronic, or Acute on Chronic? @ -[default] Uncomplicated (without systemic symptoms) or Complicated (systemic symptoms)? @ -complicated Side effects of treatment? @ -[No] Exacerbation, Progression, or Severe Exacerbation? @ -[No] Poses a threat to life or bodily function? How? (Chest pain, USA, RI, pneumonia, PE, COPD, DKA, ARF, appy, cholecystitis, CVA, Diverticulitis, Homicidal, Suicidal, threat to staff... and all critical care pts) @ -High likelihood (Nuzhat Horton) Patient was administered Dilaudid as well as Reglan for nausea. Patient's labs do show that she she is dehydrated, and has a history of uncontrolled hyperglycemia secondary to poorly controlled diabetes. CT imaging results returned negative for any obvious acute process. No palpitations from surgery. This is interpreted by myself as well as radiology. On my evaluation, patient is feeling much improvement. She is tolerating oral intake. She would like to go home. I did offer her admission for the intractable abdominal pain as well as intractable nausea and vomiting but she states she feels improved like to try to go home at this time. I believe this is reasonable. Strict return precau tions were discussed. I will provide the patient with a prescription for Reglan. I instructed the patient to follow up with their PCP in the next 1-3 days. I explained that the patient should return to the emergency department if they experience any worsening symptoms. Strict return precautions were discussed with the patient. The patient expressed understanding of these instructions. I answered all questions that the patient had. The patient was discharged home in fair condition with their prescriptions and follow up information. (Kwan Frederick) - Lab Data Lab Results 03/27/23 03/27/23 03/27/23 Range/Units 01:27 01:27 01:27 WBC 11.7 H (3.8-10.6) k/uL RBC 4.82 (3.80-5.40) m/uL Hgb 13.8 (11.4-16.0) gm/dL Hct 41.1 (34.0-46.0) % MCV 85.3 (80.0-100.0) fL MCH 28.6 (25.0-35.0) pg MCHC 33.6 (31.0-37.0) g/dL RDW 13.7 (11.5-15.5) % Plt Count 326 (150-450) k/uL MPV 7.5 Neutrophils % 86 % Lymphocytes % 8 % Monocytes % 3 % Eosinophils % 1 % Basophils % 0 % Neutrophils # 10.1 H (1.3-7.7) k/uL Lymphocytes # 1.0 (1.0-4.8) k/uL Monocytes # 0.4 (0-1.0) k/uL Eosinophils # 0.1 (0-0.7) k/uL Basophils # 0.0 (0-0.2) k/uL VBG pH (7.31-7.41) VBG pCO2 (37-51) mmHg VBG HCO3 (24-28) mmol/L Sodium 138 (137-145) mmol/L Potassium 4.1 (3.5-5.1) mmol/L Chloride 99 (98-107) mmol/L Carbon Dioxide 22 (22-30) mmol/L Anion Gap 17 mmol/L BUN 11 (7-17) mg/dL Creatinine 0.75 (0.52-1.04) mg/dL Est GFR (CKD-EPI)AfAm >90 (>60 ml/min/1.73 sqM) Est GFR (CKD-EPI)NonAf >90 (>60 ml/min/1.73 sqM) Glucose 333 H (74-99) mg/dL Plasma Lactic Acid Carlos (0.7-2.0) mmol/L Calcium 10.4 H (8.4-10.2) mg/dL Total Bilirubin 0.6 (0.2-1.3) mg/dL AST 18 (14-36) U/L ALT 17 (4-34) U/L Alkaline Phosphatase 129 H (38-126) U/L Total Protein 8.1 (6.3-8.2) g/dL Albumin 4.5 (3.5-5.0) g/dL Urine Color Yellow Urine Appearance Clear (Clear) Urine pH 6.5 (5.0-8.0) Ur Specific Flora 1.011 (1.001-1.035) Urine Protein 1+ H (Negative) Urine Glucose (UA) 4+ H (Negative) Urine Ketones 2+ H (Negative) Urine Blood Large H (Negative) Urine Nitrite Negative (Negative) Urine Bilirubin Negative (Negative) Urine Urobilinogen <2.0 (<2.0) mg/dL Ur Leukocyte Esterase Moderate H (Negative) Urine RBC >182 H (0-5) /hpf Urine WBC 26 H (0-5) /hpf Acetone, Qual (Negative) 03/27/23 03/27/23 03/27/23 Range/Units 01:27 03:33 03:33 WBC (3.8-10.6) k/uL RBC (3.80-5.40) m/uL Hgb (11.4-16.0) gm/dL Hct (34.0-46.0) % MCV (80.0-100.0) fL MCH (25.0-35.0) pg MCHC (31.0-37.0) g/dL RDW (11.5-15.5) % Plt Count (150-450) k/uL MPV Neutrophils % % Lymphocytes % % Monocytes % % Eosinophils % % Basophils % % Neutrophils # (1.3-7.7) k/uL Lymphocytes # (1.0-4.8) k/uL Monocytes # (0-1.0) k/uL Eosinophils # (0-0.7) k/uL Basophils # (0-0.2) k/uL VBG pH 7.36 (7.31-7.41) VBG pCO2 35 L (37-51) mmHg VBG HCO3 19 L (24-28) mmol/L Sodium (137-145) mmol/L Potassium (3.5-5.1) mmol/L Chloride (98-107) mmol/L Carbon Dioxide (22-30) mmol/L Anion Gap mmol/L BUN (7-17) mg/dL Creatinine (0.52-1.04) mg/dL Est GFR (CKD-EPI)AfAm (>60 ml/min/1.73 sqM) Est GFR (CKD-EPI)NonAf (>60 ml/min/1.73 sqM) Glucose (74-99) mg/dL Plasma Lactic Acid Carlos 1.1 (0.7-2.0) mmol/L Calcium (8.4-10.2) mg/dL Total Bilirubin (0.2-1.3) mg/dL AST (14-36) U/L ALT (4-34) U/L Alkaline Phosphatase (38-126) U/L Total Protein (6.3-8.2) g/dL Albumin (3.5-5.0) g/dL Urine Color Urine Appearance (Clear) Urine pH (5.0-8.0) Ur Specific Flora (1.001-1.035) Urine Protein (Negative) Urine Glucose (UA) (Negative) Urine Ketones (Negative) Urine Blood (Negative) Urine Nitrite (Negative) Urine Bilirubin (Negative) Urine Urobilinogen (<2.0) mg/dL Ur Leukocyte Esterase (Negative) Urine RBC (0-5) /hpf Urine WBC (0-5) /hpf Acetone, Qual Positive (Negative) Disposition Time of Disposition: 03:22 <Nuzhat Horton - Last Filed: 03/27/23 04:17> Is patient prescribed a controlled substance at d/c from ED?: No Time of Disposition: 06:15 <Kwan Ferderick - Last Filed: 03/27/23 06:27> Clinical Impression: Nausea and vomiting, Abdominal pain Disposition: HOME SELF-CARE Condition: Fair Instructions (If sedation given, give patient instructions): Acute Nausea and Vomiting (ED), Abdominal Pain (ED) Prescriptions: Metoclopramide [Reglan] 10 mg PO Q12HR PRN 7 Days #14 tab PRN Reason: Nausea Referrals: Rivera Tripp DO [Primary Care Provider] - 1-2 days
[2023-03-27] MEDS ORDERED: KETOROLAC 15 MG/ML 1 ML VIAL IVP STA (01:02)
[2023-03-27] MEDS ORDERED: SODIUM CHLORIDE 0.9% 1,000 ML IV ONE (01:02)
[2023-03-27] MEDS ORDERED: ONDANSETRON 4 MG/2 ML VIAL IVP STA ×2 (01:02→03:16)
[2023-03-27 01:45] LABS: Appearance,Urine Clear (Clear); Bilirubin,Urine Negative (Negative); Blood,Urine Large (Negative); Color,Urine Yellow; Glucose,Urine (UA) 4+ (Negative); Leukocyte Esterase,Urine Moderate (Negative); Nitrite,Urine Negative (Negative); PH, Urine 6.5 (5.0-8.0); Protein,Urine 1+ (Negative); RBC,Urine >182 /hpf (0-5); Specific Gravity,Urine 1.011 (1.001-1.035); Urobilinogen,Urine <2.0 mg/dL (<2.0); WBC,Urine 26 /hpf (0-5)
[2023-03-27 01:48] LABS: ALT 17 U/L (4-34); AST 18 U/L (14-36); African American GFR (CKD) >90 (>60 ml/min/1.73 sqM); Albumin 4.5 g/dL (3.5-5.0); Alkaline Phosphatase 129 U/L (38-126); Anion Gap 17 mmol/L; Blood Urea Nitrogen 11 mg/dL (7-17); Calcium 10.4 mg/dL (8.4-10.2); Carbon Dioxide 22 mmol/L (22-30); Chloride 99 mmol/L (98-107); Glucose 333 mg/dL (74-99); Non-African American GFR(CKD) >90 (>60 ml/min/1.73 sqM); Potassium 4.1 mmol/L (3.5-5.1); Sodium 138 mmol/L (137-145); Total Bilirubin 0.6 mg/dL (0.2-1.3); Total Protein 8.1 g/dL (6.3-8.2)
[2023-03-27 01:50] LABS: Basophils % (A) 0 %; Eosinophils # (A) 0.1 k/uL (0-0.7); Eosinophils % (A) 1 %; HCT 41.1 % (34.0-46.0); HGB 13.8 gm/dL (11.4-16.0); Lymphocytes % (A) 8 %; MCH 28.6 pg (25.0-35.0); MCHC 33.6 g/dL (31.0-37.0); MCV 85.3 fL (80.0-100.0); Mean Platelet Volume 7.5; Monocytes # (A) 0.4 k/uL (0-1.0); Monocytes % (A) 3 %; Neutrophils # (A) 10.1 k/uL (1.3-7.7); Neutrophils % (A) 86 %; Platelet Count 326 k/uL (150-450); RBC 4.82 m/uL (3.80-5.40); RDW 13.7 % (11.5-15.5); WBC 11.7 k/uL (3.8-10.6)
[2023-03-27 02:01] LABS: Ketones,Urine 2+ (Negative)
[2023-03-27 03:42] LABS: VBG PH 7.36 (7.31-7.41)
[2023-03-27] MEDS ORDERED: METOCLOPRAMIDE 5 MG/ML 2 ML VIAL IVP STA (03:58)
[2023-03-27] MEDS ORDERED: diphenhydrAMINE 50 MG/ML 1 ML VIAL IVP STA (04:11)
[2023-03-27] MEDS ORDERED: MORPHINE SULFATE 4 MG/ML SYRINGE IVP STA (04:13)
--- NOTE | 2023-03-27 05:10 | CT ---
EXAM: CT Abdomen and Pelvis With Intravenous Contrast CLINICAL HISTORY: had a kidney stone removed today and since then she has been vomiting TECHNIQUE: Axial computed tomography images of the abdomen and pelvis with 100ml isovue 300 intravenous contrast. CTDI is 14.4 mGy and DLP is 710.2 mGy- cm. This CT exam was performed using one or more of the following dose reduction techniques: automated exposure control, adjustment of the mA and/or kV according to patient size, and/or use of iterative reconstruction technique. Coronal and sagittal reformatted images were created and reviewed. 418 images COMPARISON: No relevant prior studies available. FINDINGS: Lung bases: Unremarkable. No mass. No consolidation. ABDOMEN: Liver: Unremarkable. No mass. Gallbladder and bile ducts: Unremarkable. No calcified stones. No ductal dilation. Pancreas: Unremarkable. No mass. No ductal dilation. Spleen: Unremarkable. No splenomegaly. Adrenals: Unremarkable. No mass. Kidneys and ureters: Small cluster of non-obstructing stones in the lower pole of left kidney measuring up to 4 mm. Moderate amount of gas along the course of left ureter. 2 mm nonobstructing right renal stone. Stomach and bowel: Unremarkable. No obstruction. No mucosal thickening. PELVIS: Appendix: No findings to suggest acute appendicitis. Bladder: Tiny pocket of gas within the anterior aspect of urinary bladder. Reproductive: Unremarkable as visualized. ABDOMEN and PELVIS: Intraperitoneal space: Unremarkable. No free air. No significant fluid collection. Bones/joints: No acute fracture. No dislocation. Soft tissues: Unremarkable. Vasculature: Unremarkable. No abdominal aortic aneurysm. Lymph nodes: Unremarkable. No enlarged lymph nodes. Tubes, lines and devices: Left ureteral stent appears to be in place. IMPRESSION: Bilateral nonobstructing renal stones. Left ureter contains gas and ureteral stent.
[2023-03-27 06:01] VITALS: TEMP 98
[2023-03-27 06:36] VITALS: BP 168/88; PULSE 103; RESP 16
--- NOTE | 2023-03-27 07:32 | XR ---
EXAMINATION TYPE: XR chest 1V DATE OF EXAM: 03/27/2023 2:23 AM COMPARISON: Chest radiographs from 01/13/2018 TECHNIQUE: XR chest 1V Frontal view of the chest. CLINICAL INDICATION:Female, 43 years old with history of post op problem; FINDINGS: Lungs/Pleura: There is no evidence of pleural effusion, focal consolidation, or pneumothorax. Pulmonary vascularity: Unremarkable. Heart/mediastinum: Cardiomediastinal silhouette is unremarkable. Musculoskeletal: No acute osseous pathology. IMPRESSION: No acute cardiopulmonary disease/process.
== END 2023-03-27 06:34 | disposition home or self-care (01) ==
LOC: EC 22:40
DX: N20.0 Calculus of kidney (principal); R11.2 Nausea with vomiting, unspecified; J45.909 Unspecified asthma, uncomplicated; E11.9 Type 2 diabetes mellitus without complications; Z79.84 Long term (current) use of oral hypoglycemic drugs; Z79.899 Other long term (current) drug therapy; Z88.5 Allergy status to narcotic agent; Z88.0 Allergy status to penicillin; Z88.2 Allergy status to sulfonamides; Z88.1 Allergy status to other antibiotic agents
CPT/HCPCS: 36415; 93005; 80053; 82803; 82009; 83605; 85025; 81001; 82365; 71045; 74177; 99285; 96374; 96375 ×4; 96376; 96361 ×4; J2270; J1200; J2765; J2405; J1885; Q9967

== ENCOUNTER 2023-03-27 16:04 | Inpatient (IN) | payer OTHER ==
[2023-03-27] MEDS ORDERED: SODIUM CHLORIDE 0.9% 1,000 ML IV STA ×2 (19:24→21:55)
[2023-03-27] MEDS ORDERED: ONDANSETRON 4 MG/2 ML VIAL IVP STA (19:24)
[2023-03-27] MEDS ORDERED: HYDROmorphone 1 MG/ML 1 ML SYRINGE IVP STA (19:32)
[2023-03-27 19:52] LABS: Basophils % (A) 0 %; Eosinophils % (A) 0 %; HCT 40.1 % (34.0-46.0); HGB 13.5 gm/dL (11.4-16.0); Lymphocytes # (A) 1.1 k/uL (1.0-4.8); Lymphocytes % (A) 9 %; MCH 28.3 pg (25.0-35.0); MCHC 33.6 g/dL (31.0-37.0); MCV 84.2 fL (80.0-100.0); Mean Platelet Volume 7.3; Monocytes # (A) 0.5 k/uL (0-1.0); Monocytes % (A) 4 %; Neutrophils # (A) 11.2 k/uL (1.3-7.7); Neutrophils % (A) 87 %; Platelet Count 368 k/uL (150-450); RBC 4.76 m/uL (3.80-5.40); RDW 13.8 % (11.5-15.5)
[2023-03-27 20:05] LABS: ALT 16 U/L (4-34); AST 17 U/L (14-36); African American GFR (CKD) >90 (>60 ml/min/1.73 sqM); Albumin 4.5 g/dL (3.5-5.0); Alkaline Phosphatase 121 U/L (38-126); Amylase 38 U/L (30-110); Anion Gap 23 mmol/L; Blood Urea Nitrogen 12 mg/dL (7-17); Calcium 10.3 mg/dL (8.4-10.2); Carbon Dioxide 15 mmol/L (22-30); Chloride 99 mmol/L (98-107); Glucose 271 mg/dL (74-99); Lipase 114 U/L (23-300); Non-African American GFR(CKD) >90 (>60 ml/min/1.73 sqM); Potassium 3.9 mmol/L (3.5-5.1); Sodium 137 mmol/L (137-145); Total Bilirubin 0.5 mg/dL (0.2-1.3)
--- NOTE | 2023-03-27 20:14 | US ---
EXAMINATION TYPE: US kidneys/renal and bladder DATE OF EXAM: 03/27/2023 COMPARISON: CT: Today. Last us:02/06/23 CLINICAL INDICATION: Female, 43 years old with history of abdominal pain recent urethral stent; abd p ain and vomiting. Pt states she had a kidney stone removed and a stent placed yesterday. Pt in severe pain EXAM MEASUREMENTS: Right Kidney: 10.5 x 5.8 x 5.4 cm Left Kidney: 11.1 x 6.0 6.4 cm Right Kidney: No hydronephrosis or masses seen Left Kidney: Hyperechoic structures with post. Shadowing seen in inf pole compatible with calculus o n prior CT. Bladder: wnl. Stent seen near jet Bilateral Jets seen: Yes There is no evidence for hydronephrosis at this point in time. . No masses are identified. The uri nary bladder is anechoic. Bilateral ureteral jets are seen. IMPRESSION: 1. No evidence of obstructive uropathy. 2. Left inferior renal sinus calcifications. Stent not well visualized in the left renal sinus. It w as noted to be in correct position on CT. There is gas within the ureter likely from instrumentation on prior CT.
--- NOTE | 2023-03-27 20:28 | ED ---
Abdominal Pain HPI - General Chief Complaint: Abdominal Pain Stated Complaint: abd pain-return visist Time Seen by Provider: 03/27/23 19:19 Source: patient Mode of arrival: ambulatory Limitations: no limitations - History of Present Illness Initial Comments: Patient is a 43-year-old female presenting to the emergency room with continued abdominal pain, nausea and vomiting. She has been to the emergency room twice in the last 24 hours since her discharge after having a urethral stent placed by Dr. Davila on 03/26/2023. She has an emesis container that bilious emesis with out any evidence of food or blood. She reports that her abdominal pain is diffuse but increased in the right upper quadrant. She has been unable to tolerate oral intake over the last 24 hours. She denies any diarrhea and reports voiding without complications. She denies any chest pain, shortness of breath, headache, dizziness, fevers or chills. In addition to her history of nephrolithiasis she has a past medical history significant for diabetes, asthma, GERD, seizures, and migraines - Related Data Home Medications Medication Instructions Recorded Confirmed Albuterol Inhaler [Ventolin Hfa 1 - 2 puff INHALATION RT-Q6H PRN 04/15/17 03/27/23 Inhaler] SUMAtriptan succinate [Imitrex] 100 mg PO DAILY PRN 01/13/18 03/27/23 Topiramate [Topiramate ER] 200 mg PO DAILY 01/13/18 03/27/23 HYDROcodone/APAP 10-325MG [[place] 1 tab PO Q6HR PRN 01/14/18 03/27/23 10-325] Biotin [Nvnh-Xnnx-Wchze] 10,000 mcg PO DAILY 03/26/23 03/27/23 Cholecalciferol [Vitamin D3 (25 25 mcg PO DAILY 03/26/23 03/27/23 Mcg = 1000 Iu)] Ibuprofen [Advil] 200 mg PO Q6HR PRN 03/26/23 03/27/23 Loratadine [Claritin] 10 mg PO DAILY 03/26/23 03/27/23 Rosuvastatin Calcium 40 mg PO DAILY 03/26/23 03/27/23 Semaglutide [Rybelsus] 3 mg PO DAILY 03/26/23 03/27/23 Propranolol [Inderal] 20 mg PO DAILY 03/27/23 03/27/23 Previous Rx's Medication Instructions Recorded Famotidine [Pepcid] 20 mg PO DAILY #30 tablet 07/14/18 Ondansetron [Zofran] 4 mg PO Q8HR PRN #30 tab 07/14/18 Ciprofloxacin HCl [Cipro] 250 mg PO Q12HR #10 tablet 03/26/23 Ketorolac [Toradol] 10 mg PO Q6HR PRN #15 tab 03/26/23 Metoclopramide [Reglan] 10 mg PO Q12HR PRN 7 Days #14 tab 03/27/23 Allergies Allergy/AdvReac Type Severity Reaction Status Date / Time codeine AdvReac Nausea & Verified 03/27/23 22:22 Vomiting Penicillins AdvReac Nausea & Verified 03/27/23 22:22 Vomiting Sulfa (Sulfonamide AdvReac Nausea & Verified 03/27/23 22:22 Antibiotics) Vomiting tramadol AdvReac Unknown Verified 03/27/23 22:22 Review of Systems ROS Statement: Those systems with pertinent positive or pertinent negative responses have been documented in the HPI. ROS Other: All systems not noted in ROS Statement are negative. Past Medical History Past Medical History: Asthma, Diabetes Mellitus, GI Bleed, Seizure Disorder Additional Past Medical History / Comment(s): NIDDM type II, grand mall seizure once in 2017, lower GI bleed, mild diverticular dx, PCOS, bronchitis, pneumonia, migraines, allergic rhinitis. Kidney stones History of Any Multi-Drug Resistant Organisms: MRSA, None Reported Date of last positivie culture/infection: 2011 MDRO Source:: Lungs Past Surgical History: Section, Tubal Ligation Additional Past Surgical History / Comment(s): colonoscopies, R groin mole removed then resected d/t abnormal cells-bening. Past Anesthesia/Blood Transfusion Reactions: No Reported Reaction Past Psychological History: No Psychological Hx Reported Smoking Status: Never smoker Past Alcohol Use History: Rare Past Drug Use History: None Reported - Past Family History Father Family Medical History: Cancer Additional Family Medical History / Comment(s): COLON, MELANOMA ON HIS CHEST AND HE ALSO HAS BENIGN BRAIN TUMORS 2, diabetes, pancreatic cancer. FATHER IS 68 YRS OLD. Mother Family Medical History: Cancer, Dialysis Additional Family Medical History / Comment(s): MELANOMA THAT METASTASIZED TO THE BRAIN- FROM AT AGE 49 YRS. Mother had an DC at age 34 and history of diabetes. Patient has many aunts, uncles and nieces with diabetes on her mother's side. Brother(s) Additional Family Medical History / Comment(s): Patient has one half-brother and one full brother with no major medical problems. Patient has 1 sister with no major medical problems. Daughter(s) Additional Family Medical History / Comment(s): Patient has 2 daughters and her youngest daughter has history of seizure disorder. Patient has one son with no major medical problems. General Exam - General Exam Comments Initial Comments: GENERAL: No acute distress, appears fatigued. HEENT: Normocephalic, atraumatic. Pupils equal, round, reactive to light. Moist mucous membranes. LUNGS: No respiratory distress. Clear to auscultation, no adventitious sounds, no use of accessory muscles. HEART: Regular rhythm with tachycardia without murmur, rub, or gallop. ABDOMEN: Normal bowel sounds. Soft, non-distended. Generalized tenderness most severe to right upper quadrant, no rebound tenderness or guarding. BACK: Normal inspection. EXTREMITIES: No edema. No tenderness. Moves all extremities. NEUROLOGIC: Alert & oriented x 3. CN II-XII grossly intact. PSYCHIATRIC: Normal affect and behavior. DERMATOLOGIC: Skin intact, without rashes or lesions noted. Limitations: no limitations Course Vital Signs 03/27/23 03/28/23 16:26 01:36 Temperature 98.7 F Pulse Rate 110 H 114 H Respiratory 20 18 Rate Blood Pressure 141/95 104/69 O2 Sat by Pulse 99 98 Oximetry Medical Decision Making - Medical Decision Making Was pt. sent in by a medical professional or institution (, PA, [facility] [facility], urgent care, hospital, or [facility]...) When possible be specific @ -No Did you speak to anyone other than the patient for history (EMS, parent, family, police, friend...)? What history was obtained from this source @ -No Did you review nursing and triage notes (agree or disagree)? Why? @ -I reviewed and agree with nursing and triage notes Were old charts reviewed (outside hosp., previous admission, EMS record, old EKG, old radiological studies, urgent care reports/EKG's, [facility] records)? Report findings @ -Yes, I reviewed laboratory studies completed in the emergency room over the last [address] Davila operating room report for his lithotripsy and ureteral stent placing. I also reviewed computed tomography scan of the abdomen and pelvis completed earlier today which demonstrated urethral stent in place to the left ureter without any other acute process. Differential Diagnosis (chest pain, altered mental status, abdominal pain women, abdominal pain men, vaginal bleeding, weakness, fever, dyspnea, syncope, headache, dizziness, GI bleed, back pain, seizure, CVA, palpatations, mental health, musculoskeletal)? @ -Differential Abdominal Pain Women: Appendicitis, Cholecystitis, diverticulosis, ischemic bowel, pancreatitis, hepatitis, UTI, gastroenteritis, AAA, incarcerated hernia, bowel obstruction, constipation, inflammatory bowel, hepatitis, peptic ulcer disease, splenic infarction, perforated viscus, vulvitis, ovarian torsion, PID, kidney stone, placenta abruption, this is not meant to be an all-inclusive list EKG interpreted by me (3pts min.). @ -None done X-rays interpreted by me (1pt min.). @ -None done CT interpreted by me (1pt min.). @ -None done U/S interpreted by me (1pt. min.). @ -Ultrasound kidney renal and bladder not interpreted by me. Report per radiologist no evidence of obstructive uropathy left inferior renal sinus calcification. What testing was considered but not performed or refused? (CT, X-rays, U/S, labs)? Why? @ -CT of the abdomen and pelvis considered but deferred due to competing completed during previous emergency room visit within the last 24 hours. What meds were considered but not given or refused? Why? @ -None Did you discuss the management of the patient with other professionals (brooke frais i.e. , PA, [facility], lab, RT, psych nurse, protective services social worker, food preservation scientist, teacher, adult probation officer, supportive employment case manager)? Give summary @ -Yes, spoke with Nicole Moncada on for EM H regarding patient presentation with intractable nausea vomiting and abdominal pain. Workup discussed with her a nd recommendation of admission with urology consult with pain management and continued hydration recommended by myself; she is agreeable to this plan and excepting of admission. Will place orders. Was smoking cessation discussed for >3mins.? @ -No Was critical care preformed (if so, how long)? @ -No Were there social determinants of health that impacted care today? How? (Homelessness, low income, unemployed, alcoholism, drug addiction, transportation, low edu. Level, literacy, decrease access to med. care, skilled nursing, rehab)? @ -No Was there de-escalation of care discussed even if they declined (Discuss DNR or withdrawal of care, Hospice)? DNR status @ -No What co-morbidities impacted this encounter? (DM, HTN, Smoking, COPD, CAD, Cancer, CVA, ARF, Chemo, Hep., AIDS, mental health diagnosis, sleep apnea, morbid obesity)? @ -None Was patient admitted / discharged? Hospital course, mention meds given and route, prescriptions, significant lab abnormalities, going to OR and other pertinent info. @ -43-year-old female presenting to the emergency room with abdominal pain nausea and vomiting which has been ongoing for the last 24 hours since her discharge after urethral stenting and lithotripsy was done on 03/26/[address] davila. She has had extensive workup over the last 24 hours which included an EKG, CT of the abdomen and pelvis, laboratory studies and chest x-ray. Will give IV hydration, antiemetics and pain medication of Dilaudid. No indication for repeat of CT of the abdomen will obtain ultrasound of the kidneys, ureter and bladder given recent urethral stenting. Will repeat laboratory studies of CBC, CMP, amylase and lipase. Laboratory results include a CBC which demonstrates leukocytosis that is mild with a WBC of 13.0 neutrophils elevated at 11.2 this is likely reactive. CMP demonstrates low carbon dioxide level was slightly elevated anion gap of 23 this is less likely due to DKA and more likely due to persistent nausea and vomiting in the setting of stable blood glucose levels over the last 24 hours. Glucose at time of laboratory draws 271. Renal function normal remaining electrolytes normal, amylase and lipase normal. Repeat urinalysis continues to demonstrate elevated ketones, large amount of blood which is contaminating results with elevated WBC and large leukocyte esterase. Ultrasound of the kidneys ureters and bladder without any acute abnormalities. Findings discussed with patient. Advised given recurrent emergency room visits for abdominal pain nausea and vomiting recommend admission for intractable abdominal pain nausea and vomiting with continued IV hydration and antiemetics and pain control; patient is agr eeable to this plan. Spoke with Nicole Moncada as indicated above who is excepting of admission. Will admit patient to observation unit under EM services with a consult to urology for further evaluation of intractable abdominal pain nausea and vomiting status post urethral stenting and lithotripsy. Undiagnosed new problem with uncertain prognosis? @ -No Drug Therapy requiring intensive monitoring for toxicity (Heparin, Nitro, Insulin, Cardizem)? @ -No Were any procedures done? @ -No Diagnosis/symptom? @ -Intractable nausea and vomiting Acute, or Chronic, or Acute on Chronic? @ -Acute Uncomplicated (without systemic symptoms) or Complicated (systemic symptoms)? @ -Complicated Side effects of treatment? @ -No Exacerbation, Progression, or Severe Exacerbation? @ -No Poses a threat to life or bodily function? How? (Chest pain, USA, DC, pneumonia, PE, COPD, DKA, ARF, appy, cholecystitis, CVA, Diverticulitis, Homicidal, Suicidal, threat to staff... and all critical care pts) @ -Yes, at risk for electrolyte abnormality and dehydration Diagnosis/symptom? @ -Abdominal pain Acute, or Chronic, or Acute on Chronic? @ -Acute Uncomplicated (without systemic symptoms) or Complicated (systemic symptoms)? @ -Uncomplicated Side effects of treatment? @ -none Exacerbation, Progression, or Severe Exacerbation] @ -no Poses a threat to life or bodily function? @ -no Case discussed with Dr. Stafford. - Lab Data Result diagrams: 03/27/23 19:37 03/27/23 19:37 Lab Results 03/27/23 03/27/23 03/27/23 Range/Units 19:37 19:37 19:37 WBC 13.0 H (3.8-10.6) k/uL RBC 4.76 (3.80-5.40) m/uL Hgb 13.5 (11.4-16.0) gm/dL Hct 40.1 (34.0-46.0) % MCV 84.2 (80.0-100.0) fL MCH 28.3 (25.0-35.0) pg MCHC 33.6 (31.0-37.0) g/dL RDW 13.8 (11.5-15.5) % Plt Count 368 (150-450) k/uL MPV 7.3 Neutrophils % 87 % Lymphocytes % 9 % Monocytes % 4 % Eosinophils % 0 % Basophils % 0 % Neutrophils # 11.2 H (1.3-7.7) k/uL Lymphocytes # 1.1 (1.0-4.8) k/uL Monocytes # 0.5 (0-1.0) k/uL Eosinophils # 0.0 (0-0.7) k/uL Basophils # 0.0 (0-0.2) k/uL Sodium 137 (137-145) mmol/L Potassium 3.9 (3.5-5.1) mmol/L Chloride 99 (98-107) mmol/L Carbon Dioxide 15 L (22-30) mmol/L Anion Gap 23 mmol/L BUN 12 (7-17) mg/dL Creatinine 0.68 (0.52-1.04) mg/dL Est GFR (CKD-EPI)AfAm >90 (>60 ml/min/1.73 sqM) Est GFR (CKD-EPI)NonAf >90 (>60 ml/min/1.73 sqM) Glucose 271 H (74-99) mg/dL Plasma Lactic Acid Carlso 1.3 (0.7-2.0) mmol/L Calcium 10.3 H (8.4-10.2) mg/dL Total Bilirubin 0.5 (0.2-1.3) mg/dL AST 17 (14-36) U/L ALT 16 (4-34) U/L Alkaline Phosphatase 121 (38-126) U/L Total Protein 8.0 (6.3-8.2) g/dL Albumin 4.5 (3.5-5.0) g/dL Amylase 38 (30-110) U/L Lipase 114 (23-300) U/L Urine Color Urine Appearance (Clear) Urine pH (5.0-8.0) Ur Specific T[place]ill (1.001-1.035) Urine Protein (Negative) Urine Glucose (UA) (Negative) Urine Ketones (Negative) Urine Blood (Negative) Urine Nitrite (Negative) Urine Bilirubin (Negative) Urine Urobilinogen (<2.0) mg/dL Ur Leukocyte Esterase (Negative) Urine RBC (0-5) /hpf Urine WBC (0-5) /hpf Urine Yeast (Budding) (None) /hpf 03/27/23 Range/Units 19:37 WBC (3.8-10.6) k/uL RBC (3.80-5.40) m/uL Hgb (11.4-16.0) gm/dL Hct (34.0-46.0) % MCV (80.0-100.0) fL MCH (25.0-35.0) pg MCHC (31.0-37.0) g/dL RDW (11.5-15.5) % Plt Count (150-450) k/uL MPV Neutrophils % % Lymphocytes % % Monocytes % % Eosinophils % % Basophils % % Neutrophils # (1.3-7.7) k/uL Lymphocytes # (1.0-4.8) k/uL Monocytes # (0-1.0) k/uL Eosinophils # (0-0.7) k/uL Basophils # (0-0.2) k/uL Sodium (137-145) mmol/L Potassium (3.5-5.1) mmol/L Chloride (98-107) mmol/L Carbon Dioxide (22-30) mmol/L Anion Gap mmol/L BUN (7-17) mg/dL Creatinine (0.52-1.04) mg/dL Est GFR (CKD-EPI)AfAm (>60 ml/min/1.73 sqM) Est GFR (CKD-EPI)NonAf (>60 ml/min/1.73 sqM) Glucose (74-99) mg/dL Plasma Lactic Acid Carlos (0.7-2.0) mmol/L Calcium (8.4-10.2) mg/dL Total Bilirubin (0.2-1.3) mg/dL AST (14-36) U/L ALT (4-34) U/L Alkaline Phosphatase (38-126) U/L Total Protein (6.3-8.2) g/dL Albumin (3.5-5.0) g/dL Amylase (30-110) U/L Lipase (23-300) U/L Urine Color Light Red Urine Appearance Cloudy H (Clear) Urine pH 5.5 (5.0-8.0) Ur Specific [place] 1.021 (1.001-1.035) Urine Protein 2+ H (Negative) Urine Glucose (UA) 4+ H (Negative) Urine Ketones 4+ H (Negative) Urine Blood Large H (Negative) Urine Nitrite Negative (Negative) Urine Bilirubin Negative (Negative) Urine Urobilinogen <2.0 (<2.0) mg/dL Ur Leukocyte Esterase Large H (Negative) Urine RBC >182 H (0-5) /hpf Urine WBC 165 H (0-5) /hpf Urine Yeast (Budding) Moderate H (None) /hpf - Radiology Data Radiology results: report reviewed, image reviewed Disposition Clinical Impression: Abdominal pain, Intractable nausea and vomiting Disposition: [facility] Condition: Stable Time of Disposition: 21:53
[2023-03-27 21:03] LABS: Appearance,Urine Cloudy (Clear); Bilirubin,Urine Negative (Negative); Blood,Urine Large (Negative); Budding Yeast,Urine Moderate /hpf; Color,Urine Light Red; Glucose,Urine (UA) 4+ (Negative); Leukocyte Esterase,Urine Large (Negative); Nitrite,Urine Negative (Negative); PH, Urine 5.5 (5.0-8.0); Protein,Urine 2+ (Negative); RBC,Urine >182 /hpf (0-5); Specific Gravity,Urine 1.021 (1.001-1.035); Urobilinogen,Urine <2.0 mg/dL (<2.0); WBC,Urine 165 /hpf (0-5)
[2023-03-27 21:04] LABS: Ketones,Urine 4+ (Negative)
[2023-03-27] MEDS ORDERED: NALOXONE 0.4 MG/ML 1 ML VIAL IV PRN (21:53)
[2023-03-27] MEDS ORDERED: HYDROcodone/APAP 5-325MG 1 EACH TAB PO PRN (21:53)
[2023-03-27] MEDS ORDERED: ACETAMINOPHEN TAB 325 MG TAB PO PRN (21:53)
[2023-03-27] MEDS: ONDANSETRON 4 MG/2 ML VIAL IVP PRN (22:11)
[2023-03-27] MEDS: SODIUM CHLORIDE 0.9% 1,000 ML IV SCH (22:12)
[2023-03-28] MEDS: HYDROmorphone 1 MG/ML 1 ML SYRINGE IVP PRN ×8 (00:27→23:12)
[2023-03-28] MEDS: SODIUM CHLORIDE 0.9% 1,000 ML IV SCH ×2 (06:14→17:01)
[2023-03-28] MEDS: ONDANSETRON 4 MG/2 ML VIAL IVP PRN ×3 (06:14→22:23)
--- NOTE | 2023-03-28 07:54 | P.GSCN ---
History of Present Illness Consult date: 03/28/23 History of present illness: 43 yo female admitted for abdominal pain , and intractable nausea. She underwent a left ureteroscopy and laser lithotripsy by Dr garnica on 03/26/2023. SHe had a ct scan and us of the abdomen showing a left ureteral stent but no evidence of hydronephrosis bilaterally. Review of Systems All systems: negative - Constitutional Denies fever, Denies weight loss - EENT Eyes: denies blurred vision Ears, nose, mouth and throat: Denies dysphagia - Cardiovascular Denies chest pain, Denies shortness of breath - Respiratory Denies cough, Denies 7 - Gastrointestinal Reports as per HPI - Genitourinary Genitourinary: Denies dysuria, Denies hematuria - Integumentary Denies rash, Denies unusual bruising - Neurological Denies headaches, Denies syncope - Hematologic/Lymphatic Denies easy bleeding, Denies easy bruising Past Medical History Past Medical History: Asthma, Diabetes Mellitus, GI Bleed, Seizure Disorder Additional Past Medical History / Comment(s): NIDDM type II, grand mall seizure once in 2017, lower GI bleed, mild diverticular dx, PCOS, bronchitis, pneumonia, migraines, allergic rhinitis. Kidney stones History of Any Multi-Drug Resistant Organisms: MRSA, None Reported Year Discovered:: 2011 MDRO Source:: Lungs Past Surgical History: Section, Tubal Ligation Additional Past Surgical History / Comment(s): colonoscopies, R groin mole removed then resected d/t abnormal cells-bening. Past Anesthesia/Blood Transfusion Reactions: No Reported Reaction Past Psychological History: No Psychological Hx Reported Smoking Status: Never smoker Past Alcohol Use History: Rare Past Drug Use History: None Reported - Past Family History Father Family Medical History: Cancer Additional Family Medical History / Comment(s): COLON, MELANOMA ON HIS CHEST AND HE ALSO HAS BENIGN BRAIN TUMORS 2, diabetes, pancreatic cancer. FATHER IS 68 YRS OLD. Mother Family Medical History: Cancer, Dialysis Additional Family Medical History / Comment(s): MELANOMA THAT METASTASIZED TO THE BRAIN- FROM AT AGE 49 YRS. Mother had an IN at age 34 and history of diabetes. Patient has many aunts, uncles and nieces with diabetes on her mother's side. Brother(s) Additional Family Medical History / Comment(s): Patient has one half-brother and one full brother with no major medical problems. Patient has 1 sister with no major medical problems. Daughter(s) Additional Family Medical History / Comment(s): Patient has 2 daughters and her youngest daughter has history of seizure disorder. Patient has one son with no major medical problems. Medications and Allergies Home Medications Medication Instructions Recorded Confirmed Type Albuterol Inhaler [Ventolin Hfa 1 - 2 puff INHALATION RT-Q6H PRN 04/15/17 03/27/23 History Inhaler] SUMAtriptan succinate [Imitrex] 100 mg PO DAILY PRN 01/13/18 03/27/23 History Topiramate [Topiramate ER] 200 mg PO DAILY 01/13/18 03/27/23 History HYDROcodone/APAP 10-325MG [[place] 1 tab PO Q6HR PRN 01/14/18 03/27/23 History 10-325] Famotidine [Pepcid] 20 mg PO DAILY #30 tablet 07/14/18 03/27/23 Rx Ondansetron [Zofran] 4 mg PO Q8HR PRN #30 tab 07/14/18 03/27/23 Rx Biotin [Llum-Uhqn-Ivofu] 10,000 mcg PO DAILY 03/26/23 03/27/23 History Cholecalciferol [Vitamin D3 (25 25 mcg PO DAILY 03/26/23 03/27/23 History Mcg = 1000 Iu)] Ciprofloxacin HCl [Cipro] 250 mg PO Q12HR #10 tablet 03/26/23 03/27/23 Rx Ibuprofen [Advil] 200 mg PO Q6HR PRN 03/26/23 03/27/23 History Ketorolac [Toradol] 10 mg PO Q6HR PRN #15 tab 03/26/23 03/27/23 Rx Loratadine [Claritin] 10 mg PO DAILY 03/26/23 03/27/23 History Rosuvastatin Calcium 40 mg PO DAILY 03/26/23 03/27/23 History Semaglutide [Rybelsus] 3 mg PO DAILY 03/26/23 03/27/23 History Metoclopramide [Reglan] 10 mg PO Q12HR PRN 7 Days #14 tab 03/27/23 03/27/23 Rx Propranolol [Inderal] 20 mg PO DAILY 03/27/23 03/27/23 History Allergies Allergy/AdvReac Type Severity Reaction Status Date / Time codeine AdvReac Nausea & Verified 03/27/23 22:22 Vomiting Penicillins AdvReac Nausea & Verified 03/27/23 22:22 Vomiting Sulfa (Sulfonamide AdvReac Nausea & Verified 03/27/23 22:22 Antibiotics) Vomiting tramadol AdvReac Unknown Verified 03/27/23 22:22 Surgical - Exam Vital Signs Temp Pulse Resp BP Pulse Ox 98.7 F 110 H 20 141/95 99 03/27/23 16:26 03/27/23 16:26 03/27/23 16:26 03/27/23 16:26 03/27/23 16:26 - General well developed, well nourished, moderate distress - Eyes PERRL - ENT no hearing loss - Respiratory normal expansion - Cardiovascular Rhythm: regular - Abdomen Abdomen: soft - Neurologic normal sensation - Musculoskeletal normal posture - Psychiatric oriented to time, oriented to person, oriented to place, speech is normal, memory intact Results - Labs 03/27/23 19:37 03/27/23 19:37 Abnormal Lab Results - Last 24 Hours (Table) 03/27/23 03/27/23 03/27/23 Range/Units 19:37 19:37 19:37 WBC 13.0 H (3.8-10.6) k/uL Neutrophils # 11.2 H (1.3-7.7) k/uL Carbon Dioxide 15 L (22-30) mmol/L Glucose 271 H (74-99) mg/dL Calcium 10.3 H (8.4-10.2) mg/dL Urine Appearance Cloudy H (Clear) Urine Protein 2+ H (Negative) Urine Glucose (UA) 4+ H (Negative) Urine Ketones 4+ H (Negative) Urine Blood Large H (Negative) Ur Leukocyte Esterase Large H (Negative) Urine RBC >182 H (0-5) /hpf Urine WBC 165 H (0-5) /hpf Urine Yeast (Budding) Moderate H (None) /hpf Diabetes panel 03/27/23 Range/Units 19:37 Sodium 137 (137-145) mmol/L Potassium 3.9 (3.5-5.1) mmol/L Chloride 99 (98-107) mmol/L Carbon Dioxide 15 L (22-30) mmol/L BUN 12 (7-17) mg/dL Creatinine 0.68 (0.52-1.04) mg/dL Glucose 271 H (74-99) mg/dL Calcium 10.3 H (8.4-10.2) mg/dL AST 17 (14-36) U/L ALT 16 (4-34) U/L Alkaline Phosphatase 121 (38-126) U/L Total Protein 8.0 (6.3-8.2) g/dL Albumin 4.5 (3.5-5.0) g/dL Calcium panel 03/27/23 Range/Units 19:37 Calcium 10.3 H (8.4-10.2) mg/dL Albumin 4.5 (3.5-5.0) g/dL Pituitary panel 03/27/23 Range/Units 19:37 Sodium 137 (137-145) mmol/L Potassium 3.9 (3.5-5.1) mmol/L Chloride 99 (98-107) mmol/L Carbon Dioxide 15 L (22-30) mmol/L BUN 12 (7-17) mg/dL Creatinine 0.68 (0.52-1.04) mg/dL Glucose 271 H (74-99) mg/dL Calcium 10.3 H (8.4-10.2) mg/dL Adrenal panel 03/27/23 Range/Units 19:37 Sodium 137 (137-145) mmol/L Potassium 3.9 (3.5-5.1) mmol/L Chloride 99 (98-107) mmol/L Carbon Dioxide 15 L (22-30) mmol/L BUN 12 (7-17) mg/dL Creatinine 0.68 (0.52-1.04) mg/dL Glucose 271 H (74-99) mg/dL Calcium 10.3 H (8.4-10.2) mg/dL Total Bilirubin 0.5 (0.2-1.3) mg/dL AST 17 (14-36) U/L ALT 16 (4-34) U/L Alkaline Phosphatase 121 (38-126) U/L Total Protein 8.0 (6.3-8.2) g/dL Albumin 4.5 (3.5-5.0) g/dL - Imaging CT scan - abdomen: report reviewed, image reviewed CT scan - pelvis: report reviewed, image reviewed US - kidney/bladder: report reviewed, image reviewed Assessment and Plan Assessment: Impression: Postoperative abdominal pain and nausea. Possible urinary infection. Recommendations: The patient will need IV fluids. I will culture her urine. We'll give her some IV antibiotics. We will continue with supportive antibiotics, IVs and IV antibiotics. Most likely this will settle down in the next 24 hours.
[2023-03-28] MEDS ORDERED: IBUPROFEN 200 MG TAB PO PRN (08:37)
[2023-03-28] MEDS ORDERED: ONDANSETRON 4 MG TAB PO PRN (08:37)
[2023-03-28] MEDS ORDERED: ALBUTEROL NEBULIZED 2.5 MG/3 ML INHALATION PRN (08:37)
[2023-03-28] MEDS ORDERED: HYDROcodone/APAP 10-325MG 1 EACH TAB PO PRN (08:37)
[2023-03-28] MEDS ORDERED: SUMAtriptan succinate 50 MG TAB PO PRN (08:37)
[2023-03-28] MEDS ORDERED: METOCLOPRAMIDE 10 MG TAB PO PRN (08:37)
[2023-03-28] MEDS ORDERED: NON FORMULARY DRUG (Biotin [Hair-Skin-Nails] 10,000 MCG Tab.Chew) PO SCH (09:00)
[2023-03-28] MEDS: LEVOFLOXACIN 500MG-D5W PMX 500 MG in DEXTROSE/WATER 1 100ML.BAG IVPB SCH (09:19)
[2023-03-28] MEDS: FAMOTIDINE 20 MG TAB PO SCH (09:19)
[2023-03-28] MEDS: TOPIRAMATE 100 MG TAB PO SCH ×3 (10:52→20:12)
[2023-03-28] MEDS: ATORVASTATIN 80 MG TAB PO SCH (10:53)
[2023-03-28] MEDS: CHOLECALCIFEROL 25 MCG (1000 IU) TABLET PO SCH (10:53)
[2023-03-28] MEDS: LORATADINE 10 MG TAB PO SCH (10:53)
[2023-03-28] MEDS: PATIENT'S OWN (Semaglutide [Rybelsus] 3 MG Tablet) PO SCH (11:27)
--- NOTE | 2023-03-28 11:38 | HP ---
HISTORY AND PHYSICAL CHIEF COMPLAINT: Abdominal pain with some nausea and vomiting. HISTORY OF PRESENT ILLNESS: This is a 43-year-old woman with a past medical history of multiple medical problems, who underwent ureteral stent on 03/26/2023. The patient was complaining of some abdominal pain, nausea, and vomiting, and the patient was admitted with concerns for UTI. The patient has been started on antibiotics. No chest pain. No palpitations. No fever. White count is 13. PAST MEDICAL HISTORY: Reviewed includes history of recent ureteral stent. Rest of the history is noted. MEDICATIONS: Topamax. Doses and rest of the medications are noted. ALLERGIES: Codeine. FAMILY HISTORY: History of cancer. SOCIAL HISTORY: No history of smoking. Occasional alcohol intake. REVIEW OF SYSTEMS: Fourteen-point review is negative except as mentioned earlier. PHYSICAL EXAMINATION: VITAL SIGNS: Pulse is 68, blood pressure 123/68, respirations 17. HEENT: Conjunctivae are normal. NECK: No jugular venous distention. CARDIOVASCULAR: S1 and S2 muffled. RESPIRATORY: Breath sounds diminished at the bases. ABDOMEN: Soft. Mild diffuse discomfort. LEGS: No edema. NERVOUS SYSTEM: Nonfocal. LABORATORY DATA: Reviewed. ASSESSMENT: 1. Acute urinary tract infection with possible sepsis. 2. History of recent ureteral stent. 3. History of asthma. 4. Diabetes mellitus, type 2. 5. Gastrointestinal bleed. 6. Seizure disorder. RECOMMENDATIONS AND DISCUSSION: In this 43-year-old woman presented with multiple complex medical issues, we will monitor the patient closely. The patient is started on broad-spectrum IV antibiotics. We will obtain the cultures. There is a concern of sepsis also. IV fluids. DVT prophylaxis. Guarded prognosis. Resume home medications. Repeat labs tomorrow. Further recommendations to follow. MMODL / IJN: [id number] /
[2023-03-28] MEDS: PANTOPRAZOLE 40 MG/10 ML VIAL IVP SCH ×2 (11:59→20:11)
[2023-03-28] MEDS: PROPRANOLOL 20 MG TAB PO SCH (11:59)
[2023-03-28 13:52] LABS: Glucose,Whole Blood 202 mg/dL (70-110)
[2023-03-28] MEDS: METOCLOPRAMIDE 5 MG/ML 2 ML VIAL IVP SCH ×2 (14:47→18:17)
[2023-03-28] MEDS: ENOXAPARIN 40 MG/0.4 ML SYRINGE SQ SCH (17:01)
[2023-03-28 17:22] LABS: Glucose,Whole Blood 196 mg/dL (70-110)
[2023-03-28 20:12] LABS: Glucose,Whole Blood 212 mg/dL (70-110)
[2023-03-29] MEDS: SODIUM CHLORIDE 0.9% 1,000 ML IV SCH ×4 (00:20→21:05)
[2023-03-29] MEDS: METOCLOPRAMIDE 5 MG/ML 2 ML VIAL IVP SCH ×5 (00:34→23:52)
[2023-03-29] MEDS: HYDROmorphone 1 MG/ML 1 ML SYRINGE IVP PRN ×6 (03:04→23:52)
[2023-03-29 06:08] LABS: Glucose,Whole Blood 196 mg/dL (70-110)
[2023-03-29] MEDS: LEVOFLOXACIN 500MG-D5W PMX 500 MG in DEXTROSE/WATER 1 100ML.BAG IVPB SCH (08:53)
[2023-03-29] MEDS: PANTOPRAZOLE 40 MG/10 ML VIAL IVP SCH ×2 (08:54→20:00)
[2023-03-29] MEDS: LORATADINE 10 MG TAB PO SCH (08:54)
[2023-03-29] MEDS: ENOXAPARIN 40 MG/0.4 ML SYRINGE SQ SCH (08:54)
[2023-03-29] MEDS: FAMOTIDINE 20 MG TAB PO SCH (08:54)
[2023-03-29] MEDS: PROPRANOLOL 20 MG TAB PO SCH (08:55)
[2023-03-29] MEDS: PATIENT'S OWN (Semaglutide [Rybelsus] 3 MG Tablet) PO SCH (08:55)
[2023-03-29] MEDS: CHOLECALCIFEROL 25 MCG (1000 IU) TABLET PO SCH (08:55)
[2023-03-29] MEDS: ATORVASTATIN 80 MG TAB PO SCH (08:55)
[2023-03-29] MEDS: TOPIRAMATE 100 MG TAB PO SCH ×2 (08:55→20:01)
[2023-03-29] MEDS: ONDANSETRON 4 MG/2 ML VIAL IVP PRN ×2 (08:59→16:03)
[2023-03-29] MEDS ORDERED: DEXTROSE 50% SYRINGE 50 ML IVP PRN ×2 (10:05)
[2023-03-29 10:27] LABS: Glucose,Whole Blood 202 mg/dL (70-110)
[2023-03-29 11:06] LABS: Basophils # (A) 0.04 X 10*3/uL (0.00-0.10); Basophils % (A) 0.3 %; Eosinophils # (A) 0.01 X 10*3/uL (0.04-0.35); Eosinophils % (A) 0.1 %; HCT 36.5 % (37.2-46.3); HGB 12.4 d/dL (12.0-15.0); Lymphocytes # (A) 1.43 X 10*3/uL (0.90-5.00); Lymphocytes % (A) 12.2 %; MCH 28.2 pg (27.0-32.0); Mean Platelet Volume 9.6 FL (9.5-12.2); Monocytes # (A) 0.96 X 10*3/uL (0.20-1.00); Monocytes % (A) 8.2 %; NRBC Per 100 WBC 0 X 10*3/uL (0.00-0.01); Neutrophils # (A) 9.26 X 10*3/uL (1.80-7.70); Neutrophils % (A) 78.7 %; Platelet Count 390 X 10*3/uL (140-440); RDW 13.4 % (11.5-14.5); WBC 11.76 X 10*3/uL (4.50-10.00)
[2023-03-29 11:29] LABS: BUN/Creat Ratio 14.29 Ratio (12.00-20.00); Calcium 9.5 mg/dL (8.7-10.3); Carbon Dioxide 12.6 mmol/L (21.6-31.8); Chloride 101 mmol/L (96-109); Glucose 187 mg/dL (70-110); Potassium 3.6 mmol/L (3.5-5.5); Sodium 135 mmol/L (135-145)
[2023-03-29 12:09] LABS: Glucose,Whole Blood 195 mg/dL (70-110)
[2023-03-29] MEDS: amLODIPine 10 MG TAB PO SCH (13:33)
[2023-03-29] MEDS: INSULIN ASPART (NovoLOG) 100 UNIT/ML VIAL SQ SCH ×3 (13:33→21:04)
[2023-03-29 17:31] LABS: Glucose,Whole Blood 157 mg/dL (70-110)
[2023-03-29 20:45] LABS: Glucose,Whole Blood 162 mg/dL (70-110)
--- NOTE | 2023-03-30 01:02 | PN ---
PROGRESS NOTE DATE OF SERVICE: 03/29/2023 SUBJECTIVE: This is a 43-year-old woman, who was admitted with abdominal pain and continues to be nauseous. The patient had features of possible UTI with sepsis. The white count is elevated to 11.6. Cultures are negative so far. OBJECTIVE: VITAL SIGNS: Pulse is 99, blood pressure 165/100, respirations 18. HEENT: Conjunctivae normal. NECK: No JVD. CARDIOVASCULAR: S1, S2. RESPIRATIONS: Breath sounds diminished at the bases. ABDOMEN: Soft. NERVOUS SYSTEM: Nonfocal. LABORATORY DATA: Reviewed. ASSESSMENT: 1. Acute urinary tract infection with possible sepsis present on admission. 2. History of recent ureteral stent. 3. History of asthma. 4. Hypertension. 5. Diabetes mellitus, type 2. 6. History of gastrointestinal bleed. 7. History of seizure disorder. RECOMMENDATIONS: Recommend to continue current medications and continue symptomatic treatment. Monitor blood pressure closely. Continue the antibiotics. Follow the cultures. Further recommendations to follow. We will add Norvasc to the current regimen. MMODL / IJN: [id number] /
[2023-03-30] MEDS: HYDROmorphone 1 MG/ML 1 ML SYRINGE IVP PRN ×6 (04:16→23:19)
[2023-03-30] MEDS: ONDANSETRON 4 MG/2 ML VIAL IVP PRN ×4 (04:16→21:06)
[2023-03-30 06:29] LABS: Glucose,Whole Blood 169 mg/dL (70-110)
[2023-03-30] MEDS: INSULIN ASPART (NovoLOG) 100 UNIT/ML VIAL SQ SCH ×4 (06:30→21:06)
[2023-03-30] MEDS: METOCLOPRAMIDE 5 MG/ML 2 ML VIAL IVP SCH ×4 (06:30→23:19)
[2023-03-30] MEDS: SODIUM CHLORIDE 0.9% 1,000 ML IV SCH ×2 (08:51→18:00)
[2023-03-30] MEDS: LEVOFLOXACIN 500MG-D5W PMX 500 MG in DEXTROSE/WATER 1 100ML.BAG IVPB SCH (08:52)
[2023-03-30] MEDS: ENOXAPARIN 40 MG/0.4 ML SYRINGE SQ SCH (08:52)
[2023-03-30] MEDS: TOPIRAMATE 100 MG TAB PO SCH ×2 (09:00→19:56)
[2023-03-30 09:37] LABS: Blood Urea Nitrogen 9.3 mg/dL (9.0-27.0); Calcium 9.6 mg/dL (8.7-10.3); Carbon Dioxide 17.9 mmol/L (21.6-31.8); Chloride 100 mmol/L (96-109); Glucose 158 mg/dL (70-110); Sodium 136 mmol/L (135-145)
[2023-03-30 09:51] LABS: Basophils # (A) 0.06 X 10*3/uL (0.00-0.10); Basophils % (A) 0.7 %; Eosinophils # (A) 0.02 X 10*3/uL (0.04-0.35); Eosinophils % (A) 0.2 %; HCT 35.7 % (37.2-46.3); HGB 12.2 d/dL (12.0-15.0); Lymphocytes % (A) 17.9 %; MCH 27.9 pg (27.0-32.0); MCHC 34.2 d/dL (32.0-37.0); MCV 81.7 FL (80.0-97.0); Mean Platelet Volume 9.5 FL (9.5-12.2); Monocytes # (A) 0.86 X 10*3/uL (0.20-1.00); Monocytes % (A) 10.2 %; NRBC Per 100 WBC 0 X 10*3/uL (0.00-0.01); Neutrophils # (A) 5.92 X 10*3/uL (1.80-7.70); Neutrophils % (A) 70.5 %; Platelet Count 394 X 10*3/uL (140-440); RBC 4.37 X 10*6/uL (4.10-5.20); RDW 13.3 % (11.5-14.5)
[2023-03-30 11:16] VITALS: BMI 22.3
[2023-03-30] MEDS: amLODIPine 10 MG TAB PO SCH (11:25)
[2023-03-30] MEDS: CHOLECALCIFEROL 25 MCG (1000 IU) TABLET PO SCH (11:25)
[2023-03-30] MEDS: FAMOTIDINE 20 MG TAB PO SCH (11:25)
[2023-03-30] MEDS: LORATADINE 10 MG TAB PO SCH (11:25)
[2023-03-30] MEDS: ATORVASTATIN 80 MG TAB PO SCH (11:25)
[2023-03-30] MEDS: PROPRANOLOL 20 MG TAB PO SCH (11:26)
[2023-03-30] MEDS: PATIENT'S OWN (Semaglutide [Rybelsus] 3 MG Tablet) PO SCH (11:26)
[2023-03-30] MEDS: PANTOPRAZOLE 40 MG/10 ML VIAL IVP SCH ×2 (11:54→19:56)
[2023-03-30 12:02] LABS: Glucose,Whole Blood 180 mg/dL (70-110)
[2023-03-30] MEDS ORDERED: IOPAMIDOL CONTRAST (ORAL USE) VIAL PO PRN (16:10)
[2023-03-30 17:30] LABS: Glucose,Whole Blood 163 mg/dL (70-110)
--- NOTE | 2023-03-30 20:08 | CT ---
EXAMINATION TYPE: CT abdomen pelvis wo con DATE OF EXAM: 03/30/2023 COMPARISON: 03/27/2013 HISTORY: 43-year-old female Hematuria. Recent stent put into left kidney. CT DLP: 268.3 mGycm. Automated exposure control for dose reduction was used. TECHNIQUE: Contiguous axial scanning of the abdomen and pelvis without IV contrast. Coronal and sagit veto reconstructions performed. FINDINGS: Mild generalized anasarca change. Heart limits of normal in size. Trace pericardial effusion. Tiny hiatal hernia. There is some oral contrast material collected within the gallbladder compatible with vicarious excre tion from the biliary system. Noncontrast appearance of the liver, adrenal glands, spleen, and pancreas within normal limits. 4 mm nonobstructive stone right kidney. A couple nonobstructing 1 mm left renal calculi. A left ureteral stent is in place. Distal loop is i n the bladder just beyond the left ureteral orifice. No hydronephrosis. The previous air within the l eft ureter has resolved. No suspicious calcification seen along the course of the left ureter. No dilated small bowel, free fluid, or free air. No mesenteric or retroperitoneal lymphadenopathy. Normal appendix. Moderate stool burden. No pericolonic inflammatory change. Mild circumferential bladder wall thickening. Correlate to exclude cystitis. Uterus anteverted. Suspect some follicular change in the right ovary and probable 2.4 cm dominant fol licle or functional cyst left ovary. No abnormal fluid collection in the pelvis or pelvic lymphadenop athy. Bones: No osseous destructive process. There appears to be mild degenerative change at the hips. IMPRESSION: 1. Left ureteral stent in place. No hydronephrosis. Nonobstructing bilateral renal calculi measuring up to 5 mm. The previous air within the left ureter has resorbed. No suspicious stones seen along th e course of either ureter. 2. Mild circumferential bladder wall thickening. Correlate to exclude cystitis. 3. Moderate stool burden.
[2023-03-30 21:01] LABS: Glucose,Whole Blood 165 mg/dL (70-110)
--- NOTE | 2023-03-30 21:35 | PN ---
PROGRESS NOTE DATE OF SERVICE: 03/30/2023 SUBJECTIVE: This is a 43-year-old woman who was admitted with acute urinary tract infection with possible sepsis, also complaining of significant nausea at this time. Patient has also significant hematuria. The patient recently had a ureteral stent with no chest pain, no palpitations. OBJECTIVE: VITAL SIGNS: Pulse is 106, blood pressure 152/80, and respirations 16. CHEST: Clear to auscultation. ABDOMEN: Soft. NERVOUS SYSTEM: No focal deficits. LABORATORY DATA: Reviewed. ASSESSMENT: 1. Acute urinary tract infection with possible sepsis present on admission. 2. History of recent ureteral stent. 3. Hematuria. 4. History of asthma. 5. Hypertension. 6. Diabetes type 2. 7. History of GI bleed. 8. History of seizure disorder. RECOMMENDATIONS AND DISCUSSION: Recommended to continue current management and continue symptomatic treatment, otherwise repeat labs and will stop the Lovenox. I would recommend a CAT scan of the abdomen and pelvis, continue to monitor. Further recommendations to follow. MMODL / IJN: [id number] /
[2023-03-31] MEDS: HYDROmorphone 1 MG/ML 1 ML SYRINGE IVP PRN ×5 (04:16→23:19)
[2023-03-31] MEDS: ONDANSETRON 4 MG/2 ML VIAL IVP PRN ×3 (04:16→16:58)
[2023-03-31 06:20] LABS: Glucose,Whole Blood 157 mg/dL (70-110)
[2023-03-31] MEDS: INSULIN ASPART (NovoLOG) 100 UNIT/ML VIAL SQ SCH ×4 (06:23→20:56)
[2023-03-31] MEDS: METOCLOPRAMIDE 5 MG/ML 2 ML VIAL IVP SCH ×4 (06:23→23:19)
[2023-03-31] MEDS: LEVOFLOXACIN 500MG-D5W PMX 500 MG in DEXTROSE/WATER 1 100ML.BAG IVPB SCH (08:25)
[2023-03-31] MEDS: TOPIRAMATE 200 MG PO SCH (08:25)
[2023-03-31] MEDS: PANTOPRAZOLE 40 MG/10 ML VIAL IVP SCH ×2 (08:25→21:16)
[2023-03-31] MEDS: amLODIPine 10 MG TAB PO SCH (08:26)
[2023-03-31] MEDS: SODIUM CHLORIDE 0.9% 1,000 ML IV SCH (08:26)
[2023-03-31] MEDS: ATORVASTATIN 80 MG TAB PO SCH (08:38)
[2023-03-31] MEDS: CHOLECALCIFEROL 25 MCG (1000 IU) TABLET PO SCH (08:38)
[2023-03-31] MEDS: LORATADINE 10 MG TAB PO SCH (08:38)
[2023-03-31] MEDS: PROPRANOLOL 20 MG TAB PO SCH (08:39)
[2023-03-31] MEDS: PATIENT'S OWN (Semaglutide [Rybelsus] 3 MG Tablet) PO SCH (08:39)
[2023-03-31 09:54] LABS: Basophils # (A) 0.04 X 10*3/uL (0.00-0.10); Basophils % (A) 0.5 %; Eosinophils # (A) 0.06 X 10*3/uL (0.04-0.35); Eosinophils % (A) 0.8 %; HCT 34.2 % (37.2-46.3); HGB 11.8 d/dL (12.0-15.0); Lymphocytes # (A) 1.35 X 10*3/uL (0.90-5.00); Lymphocytes % (A) 17.8 %; MCH 27.5 pg (27.0-32.0); MCHC 34.5 d/dL (32.0-37.0); MCV 79.7 FL (80.0-97.0); Mean Platelet Volume 9.3 FL (9.5-12.2); Monocytes # (A) 0.89 X 10*3/uL (0.20-1.00); Monocytes % (A) 11.8 %; NRBC Per 100 WBC 0 X 10*3/uL (0.00-0.01); Neutrophils # (A) 5.21 X 10*3/uL (1.80-7.70); Neutrophils % (A) 68.8 %; Platelet Count 380 X 10*3/uL (140-440); RBC 4.29 X 10*6/uL (4.10-5.20); RDW 13.4 % (11.5-14.5); WBC 7.57 X 10*3/uL (4.50-10.00)
[2023-03-31 11:44] LABS: ALT 8 U/L (8-44); AST 11 U/L (13-35); Albumin 3.6 d/dL (3.8-4.9); Albumin/Globulin Ratio 1.33 Ratio (1.60-3.17); Alkaline Phosphatase 85 U/L (41-126); BUN/Creat Ratio 13.33 Ratio (12.00-20.00); Calcium 9.5 mg/dL (8.7-10.3); Carbon Dioxide 20.4 mmol/L (21.6-31.8); Chloride 100 mmol/L (96-109); Globulin 2.7 d/dL (1.6-3.3); Glucose 163 mg/dL (70-110); Potassium 2.8 mmol/L (3.5-5.5); Sodium 138 mmol/L (135-145); Total Bilirubin <0.2 mg/dL (0.3-1.2); Total Protein 6.3 d/dL (6.2-8.2)
[2023-03-31] MEDS ORDERED: Potassium Replacement Protocol 1 EACH MISC MISCELLANE PRN (12:02)
[2023-03-31] MEDS ORDERED: Magnesium Replacement Protocol 1 EACH MISC MISCELLANE PRN (12:02)
--- NOTE | 2023-03-31 12:12 | P.PN ---
Subjective Progress Note Date: 03/31/23 The patient is in the hospital post-stone an epilation and stent placement by she has had nausea and vomiting that is slowly getting better. A follow-up CAT scan is normal. She did have blood in the urine after Lovenox. This is probably due to the Lovenox aggravated by the stent. There is nothing urologic that I would do for this. From urologic standpoint she can be discharged home at any time. Objective - Vital Signs Vital signs: Vital Signs Temp 98.2 F 03/31/23 06:55 Pulse 107 H 03/31/23 06:55 Resp 16 03/31/23 06:55 BP 147/90 03/31/23 06:55 Pulse Ox 99 03/31/23 06:55 FiO2 Intake & Output 03/30/23 03/31/23 03/31/23 18:59 06:59 18:59 Weight 55.338 kg Other: Voiding Method Toilet Toilet Toilet # Voids 1 2 - Labs CBC & Chem 7: 03/31/23 05:06 03/31/23 05:06 Labs: Abnormal Lab Results - Last 24 Hours (Table) 03/30/23 03/30/23 03/31/23 Range/Units 17:29 20:59 05:06 Hgb 11.8 L (12.0-15.0) d/dL Hct 34.2 L (37.2-46.3) % MCV 79.7 L (80.0-97.0) FL MPV 9.3 L (9.5-12.2) FL Potassium (3.5-5.5) mmol/L Carbon Dioxide (21.6-31.8) mmol/L Anion Gap (4.00-12.00) mmol/L BUN (9.0-27.0) mg/dL Glucose (70-110) mg/dL POC Glucose (mg/dL) 163 H 165 H (70-110) mg/dL Total Bilirubin (0.3-1.2) mg/dL AST (13-35) U/L Albumin (3.8-4.9) d/dL Albumin/Globulin Ratio (1.60-3.17) Ratio 03/31/23 03/31/23 Range/Units 05:06 06:17 Hgb (12.0-15.0) d/dL Hct (37.2-46.3) % MCV (80.0-97.0) FL MPV (9.5-12.2) FL Potassium 2.8 L (3.5-5.5) mmol/L Carbon Dioxide 20.4 L (21.6-31.8) mmol/L Anion Gap 17.60 H (4.00-12.00) mmol/L BUN 8.0 L (9.0-27.0) mg/dL Glucose 163 H (70-110) mg/dL POC Glucose (mg/dL) 157 H (70-110) mg/dL Total Bilirubin <0.2 L (0.3-1.2) mg/dL AST 11 L (13-35) U/L Albumin 3.6 L (3.8-4.9) d/dL Albumin/Globulin Ratio 1.33 L (1.60-3.17) Ratio Microbiology - Last 24 Hours (Table) 03/28/23 16:49 Urine Culture - Final Urine,Voided 03/28/23 11:21 Blood Culture Gram Stain - Preliminary Blood Blood Culture - Preliminary
[2023-03-31 12:45] LABS: Glucose,Whole Blood 155 mg/dL (70-110)
[2023-03-31] MEDS ORDERED: 0.9% NACL WITH KCL 20 MEQ/L 1,000 ML IV SCH (13:00)
[2023-03-31] MEDS: POTASSIUM CHLORIDE ER 20 MEQ TAB.ER PO SCH ×3 (15:15→18:22)
[2023-03-31 17:36] LABS: Glucose,Whole Blood 151 mg/dL (70-110)
[2023-03-31] MEDS: SODIUM CHLORIDE 0.9% 1,000 ML with POTASSIUM CHLORIDE 40 MEQ IV SCH ×2 (18:22)
[2023-03-31 20:31] LABS: Glucose,Whole Blood 130 mg/dL (70-110)
--- NOTE | 2023-04-01 04:24 | PN ---
PROGRESS NOTE DATE OF SERVICE: 03/31/2023 SUBJECTIVE: This is a 43-year-old woman, who was admitted with UTI, was complaining of some nausea, vomiting, and improved significantly. The patient has hematuria, Lovenox was stopped. CT scan of the abdomen did not show any acute abnormality. Dr. Macias evaluated the patient and recommended discharge once stabilized. OBJECTIVE: VITAL SIGNS: Pulse is 107, blood pressure 147/98, respirations 16. CHEST: Clear to auscultation. CARDIOVASCULAR: S1, S2. ABDOMEN: Soft, nontender. NERVOUS SYSTEM: Nonfocal. LABORATORY DATA: Potassium 2.8. Rest of the labs are noted. ASSESSMENT: 1. Acute urinary tract infection with possible sepsis present on admission. 2. History of recent ureteral stent. 3. Hematuria, improved. 4. Hypokalemia, severe. 5. History of asthma. 6. Hypertension. 7. Diabetes mellitus, type 2. 8. History of gastrointestinal bleed. 9. History of seizure disorder. RECOMMENDATIONS: Recommend to continue current medications. Continue symptomatic treatment. Repeat potassium and closely follow. DVT prophylaxis. Continue with antibiotic. Guarded prognosis. Further recommendations to follow. MMODL / IJN: [id number] /
[2023-04-01] MEDS: HYDROmorphone 1 MG/ML 1 ML SYRINGE IVP PRN (04:35)
[2023-04-01] MEDS: ONDANSETRON 4 MG/2 ML VIAL IVP PRN ×3 (04:35→16:00)
[2023-04-01 06:12] LABS: Glucose,Whole Blood 130 mg/dL (70-110)
[2023-04-01] MEDS: METOCLOPRAMIDE 5 MG/ML 2 ML VIAL IVP SCH ×4 (06:29→23:10)
[2023-04-01] MEDS: SODIUM CHLORIDE 0.9% 1,000 ML with POTASSIUM CHLORIDE 40 MEQ IV SCH ×4 (06:29→21:27)
[2023-04-01] MEDS: INSULIN ASPART (NovoLOG) 100 UNIT/ML VIAL SQ SCH ×4 (06:31→21:28)
[2023-04-01] MEDS: LEVOFLOXACIN 500MG-D5W PMX 500 MG in DEXTROSE/WATER 1 100ML.BAG IVPB SCH (09:36)
[2023-04-01] MEDS: CHOLECALCIFEROL 25 MCG (1000 IU) TABLET PO SCH (09:38)
[2023-04-01] MEDS: LORATADINE 10 MG TAB PO SCH (09:38)
[2023-04-01] MEDS: amLODIPine 10 MG TAB PO SCH (09:38)
[2023-04-01] MEDS: ATORVASTATIN 80 MG TAB PO SCH (09:38)
[2023-04-01] MEDS: PANTOPRAZOLE 40 MG/10 ML VIAL IVP SCH ×2 (09:38→21:27)
[2023-04-01] MEDS: PROPRANOLOL 20 MG TAB PO SCH (09:38)
[2023-04-01] MEDS: TOPIRAMATE 200 MG PO SCH (09:39)
[2023-04-01] MEDS: PATIENT'S OWN (Semaglutide [Rybelsus] 3 MG Tablet) PO SCH (09:44)
[2023-04-01 09:49] LABS: Basophils # (A) 0.04 X 10*3/uL (0.00-0.10); Basophils % (A) 0.5 %; Eosinophils # (A) 0.14 X 10*3/uL (0.04-0.35); Eosinophils % (A) 1.9 %; HCT 33.8 % (37.2-46.3); HGB 11.5 d/dL (12.0-15.0); Lymphocytes # (A) 1.57 X 10*3/uL (0.90-5.00); Lymphocytes % (A) 21.5 %; MCH 27.3 pg (27.0-32.0); MCV 80.3 FL (80.0-97.0); Mean Platelet Volume 9.2 FL (9.5-12.2); Monocytes # (A) 0.85 X 10*3/uL (0.20-1.00); Monocytes % (A) 11.6 %; NRBC Per 100 WBC 0 X 10*3/uL (0.00-0.01); Neutrophils # (A) 4.68 X 10*3/uL (1.80-7.70); Neutrophils % (A) 64.1 %; Platelet Count 365 X 10*3/uL (140-440); RBC 4.21 X 10*6/uL (4.10-5.20); RDW 13.6 % (11.5-14.5); WBC 7.31 X 10*3/uL (4.50-10.00)
[2023-04-01 10:05] LABS: Blood Urea Nitrogen 6.8 mg/dL (9.0-27.0); Calcium 9.5 mg/dL (8.7-10.3); Carbon Dioxide 24.4 mmol/L (21.6-31.8); Chloride 101 mmol/L (96-109); Glucose 138 mg/dL (70-110); Magnesium 2.2 mg/dL (1.5-2.4); Potassium 3.7 mmol/L (3.5-5.5); Sodium 140 mmol/L (135-145)
[2023-04-01] MEDS: HYDROmorphone 0.5 MG/0.5 ML SYRINGE IVP PRN ×3 (11:10→23:10)
[2023-04-01 12:00] LABS: Glucose,Whole Blood 153 mg/dL (70-110)
[2023-04-01 17:28] LABS: Glucose,Whole Blood 150 mg/dL (70-110)
--- NOTE | 2023-04-01 20:18 | P.PN ---
Subjective Progress Note Date: 04/01/23 This is a 43-year-old female who was recently admitted with concerns of acute urinary tract infection along with some uncontrolled nausea and vomiting being closely monitored. Patient is post stent replacement with urology and has been seen and evaluated by urology with no plans for any inpatient intervention. Patient was on subcutaneous Lovenox for DVT prophylaxis and developed some hematuria and hemoglobin remained stable above 11. Patient had requested to see urology regarding possible stent removal. Nursing staff contacting the office. Patient is afebrile with no reports of chest pain or shortness of breath. Patient continues to report nausea and no real appetite. Patient is also requ esting IV pain medications around the clock. Strongly encouraged oral intake and less use of IV pain medications and antinausea medications. Per nursing staff patient has been refusing oral medications. Review of systems: Constitutional: No reports of fatigue, fever, or chills Cardiovascular: No reports of chest pain or palpitations Respiratory: No reports of shortness of breath or cough GI: reports of nausea, no reports of vomiting, no diarrhea : No reports of dysuria or retention Neurovascular: reports of generalized weakness All medications have been reviewed PHYSICAL EXAMINATION: GENERAL: The patient is alert and oriented x4, thin build, ill-appearing, elderly appearing HEENT: Pupils are round and equally reacting to light. EOMI. no scleral icterus. No conjunctival pallor. Normocephalic, atraumatic. No pharyngeal erythema. No thyromegaly. CARDIOVASCULAR: S1 and S2 muffled PULMONARY: diminished breath sounds bilaterally with no wheezing or rhonchi noted. ABDOMEN: soft. tender on exam. non-distended, normoactive bowel sounds. No palpable organomegaly. MUSCULOSKELETAL: No joint swelling or deformity. EXTREMITIES: No cyanosis, clubbing, or pedal edema. NEUROLOGICAL: Gross neurological examination did not reveal any focal deficits. Diffuse weakness SKIN: No rashes. Assessment: Acute urinary tract infection with possible sepsis, present on admission History of recent ureteral stent one day prior to admission Hematuria, improving most likely secondary to Lovenox for DVT prophylaxis Hypokalemia, severe, improving History of asthma, not in exacerbation Hypertension history Diabetes mellitus, type II History of GI bleed History of seizure disorder GI prophylaxis DVT prophylaxis Full code Plan: Recommend to continue with current medications and management . Patient has been evaluated by urology with no further plans recommend outpatient follow-up to discuss stent removal. Patient continues to have some hematuria and hemoglobin remained stable above 11. Will monitor overnight and encourage oral intake with repeat CBC Patient follow-up with urology in 1-2 weeks and continue with the stent Encouraged oral intake and increased activity as tolerated Patient will be discharged in 24 hours The impression and plan of care has been dictated by Nicole Moncada, nurse practitioner as directed. Dr. Escobar MD I have performed a history and examination and MDM of this patient, discussed the same with the dictator, and agree with the dictator's assessment and plan as written ,documented as a scribe. Based on total visit time, I have performed more than 50% of the visit. Any additional findings or plans will be noted. Objective - Vital Signs Vital signs: Vital Signs Temp 98.3 F 04/01/23 08:00 Pulse 100 04/01/23 08:00 Resp 14 04/01/23 08:00 BP 143/91 04/01/23 08:00 Pulse Ox 99 04/01/23 08:00 FiO2 Intake & Output 03/31/23 04/01/23 04/01/23 18:59 06:59 18:59 Output Total 0 Balance 0 Output: Emesis 0 Other: Voiding Method Toilet Toilet Toilet # Voids 1 1 - Labs CBC & Chem 7: 04/01/23 05:33 04/01/23 05:33 Labs: Abnormal Lab Results - Last 24 Hours (Table) 03/31/23 03/31/23 03/31/23 Range/Units 17:35 19:56 20:30 Hgb (12.0-15.0) d/dL Hct (37.2-46.3) % MPV (9.5-12.2) FL Potassium 3.1 L (3.5-5.1) mmol/L Anion Gap (4.00-12.00) mmol/L BUN (9.0-27.0) mg/dL Creatinine (0.6-1.5) mg/dL Glucose (70-110) mg/dL POC Glucose (mg/dL) 151 H 130 H (70-110) mg/dL 04/01/23 04/01/23 04/01/23 Range/Units 05:33 05:33 06:11 Hgb 11.5 L (12.0-15.0) d/dL Hct 33.8 L (37.2-46.3) % MPV 9.2 L (9.5-12.2) FL Potassium (3.5-5.1) mmol/L Anion Gap 14.60 H (4.00-12.00) mmol/L BUN 6.8 L (9.0-27.0) mg/dL Creatinine 0.5 L (0.6-1.5) mg/dL Glucose 138 H (70-110) mg/dL POC Glucose (mg/dL) 130 H (70-110) mg/dL 04/01/23 Range/Units 11:59 Hgb (12.0-15.0) d/dL Hct (37.2-46.3) % MPV (9.5-12.2) FL Potassium (3.5-5.1) mmol/L Anion Gap (4.00-12.00) mmol/L BUN (9.0-27.0) mg/dL Creatinine (0.6-1.5) mg/dL Glucose (70-110) mg/dL POC Glucose (mg/dL) 153 H (70-110) mg/dL Microbiology - Last 24 Hours (Table) 03/28/23 11:21 Blood Culture Gram Stain - Final Blood Blood Culture - Preliminary 03/28/23 16:49 Urine Culture - Final Urine,Voided
[2023-04-01 20:36] LABS: Glucose,Whole Blood 205 mg/dL (70-110)
[2023-04-01] MEDS: SENNOSIDES 8.6 MG TAB PO SCH (21:43)
[2023-04-02] MEDS: HYDROmorphone 0.5 MG/0.5 ML SYRINGE IVP PRN (05:10)
[2023-04-02] MEDS: METOCLOPRAMIDE 5 MG/ML 2 ML VIAL IVP SCH ×2 (05:11→13:14)
[2023-04-02 06:16] LABS: Glucose,Whole Blood 179 mg/dL (70-110)
[2023-04-02] MEDS: INSULIN ASPART (NovoLOG) 100 UNIT/ML VIAL SQ SCH ×2 (06:37→13:14)
[2023-04-02 07:32] VITALS: RESP 14
[2023-04-02 08:57] LABS: Basophils # (A) 0.05 X 10*3/uL (0.00-0.10); Basophils % (A) 0.6 %; Eosinophils # (A) 0.14 X 10*3/uL (0.04-0.35); Eosinophils % (A) 1.8 %; HGB 10.9 d/dL (12.0-15.0); Lymphocytes # (A) 1.72 X 10*3/uL (0.90-5.00); Lymphocytes % (A) 22.3 %; MCH 27.8 pg (27.0-32.0); MCHC 34.1 d/dL (32.0-37.0); MCV 81.6 FL (80.0-97.0); Mean Platelet Volume 9.3 FL (9.5-12.2); Monocytes # (A) 0.79 X 10*3/uL (0.20-1.00); Monocytes % (A) 10.3 %; NRBC Per 100 WBC 0 X 10*3/uL (0.00-0.01); Neutrophils # (A) 4.97 X 10*3/uL (1.80-7.70); Neutrophils % (A) 64.6 %; Platelet Count 316 X 10*3/uL (140-440); RBC 3.92 X 10*6/uL (4.10-5.20); RDW 13.8 % (11.5-14.5)
[2023-04-02] MEDS: PROPRANOLOL 20 MG TAB PO SCH (09:13)
[2023-04-02] MEDS: LORATADINE 10 MG TAB PO SCH (09:13)
[2023-04-02] MEDS: PANTOPRAZOLE 40 MG/10 ML VIAL IVP SCH (09:13)
[2023-04-02] MEDS: SENNOSIDES 8.6 MG TAB PO SCH (09:13)
[2023-04-02] MEDS: amLODIPine 10 MG TAB PO SCH (09:13)
[2023-04-02] MEDS: ATORVASTATIN 80 MG TAB PO SCH (09:13)
[2023-04-02] MEDS: CHOLECALCIFEROL 25 MCG (1000 IU) TABLET PO SCH (09:14)
[2023-04-02] MEDS: TOPIRAMATE 200 MG PO SCH (09:14)
[2023-04-02] MEDS: PATIENT'S OWN (Semaglutide [Rybelsus] 3 MG Tablet) PO SCH (09:14)
[2023-04-02] MEDS: ONDANSETRON 4 MG/2 ML VIAL IVP PRN (09:22)
[2023-04-02] MEDS: LEVOFLOXACIN 500MG-D5W PMX 500 MG in DEXTROSE/WATER 1 100ML.BAG IVPB SCH (09:22)
[2023-04-02 12:04] LABS: Glucose,Whole Blood 221 mg/dL (70-110)
[2023-04-02] MEDS: SODIUM CHLORIDE 0.9% 1,000 ML with POTASSIUM CHLORIDE 40 MEQ IV SCH ×2 (12:08)
[2023-04-02 13:29] VITALS: BP 100/69; PULSE 86; TEMP 98.4
--- NOTE | 2023-04-05 10:59 | P.DS ---
Providers Date of admission: 03/27/23 20:47 Expected date of discharge: 04/02/23 Attending physician: Paul Kumar Consults: 03/27/23 21:53 Consult Physician Routine Consulting Provider: Jeff Davila Consult Reason/Comments: Recent urethral stent placement Do you want consulting provider notified?: Yes 04/01/23 14:16 Consult Physician Routine Consulting Provider: Jeff Davila Consult Reason/Comments: re-consult Do you want consulting provider notified?: Yes Primary care physician: Rivera Tripp Hospital Course: Final diagnosis Acute urinary tract infection with possible sepsis, present on admission History of recent ureteral stent one day prior to admission Hematuria, improving most likely secondary to Lovenox for DVT prophylaxis Hypokalemia, severe, improving History of asthma, not in exacerbation Hypertension history Diabetes mellitus, type II History of GI bleed History of seizure disorder GI prophylaxis DVT prophylaxis Full code Discharge disposition Patient is being discharged in a stable condition with guarded prognosis to home. Patient will follow-up with Dr. Tripp in the outpatient setting upon discharge. Patient is to continue with oral Levaquin as prescribed and close outpatient follow-up with urology as scheduled. Prescription provided to follow-up on repeat labs to monitor hemoglobin and S2 to 3 days. Total time taken is greater than 35 minutes. Hospital course This is a 43-year-old female who was recently admitted with intractable nausea and vomiting with concerns of acute urinary tract infection, present on admis alma rosa. Patient 2 days prior had undergone ureteral stent placement with urology and was evaluated by urology during hospitalization with no plans for anything further and to continue with antibiotics. Patient to follow-up outpatient for possible stent removal in the next 1-2 weeks. Patient developed some hematuria although stable hemoglobin above 10 most likely secondary to Lovenox for DVT prophylaxis. Patient encouraged to follow-up in the next 2-3 days to monitor hemoglobin and continue to keep follow-up urology appointment. Currently no reports of chest pain, shortness of breath, or palpitations. Patient is afebrile. reports of intermittent nausea but improving and having no vomiting and patient is tolerating very small amounts of diet. Recommending continuing to slowly advance as tolerated. Patient will be discharged home today. Guarded prognosis and high risk for readmission. Physical exam: Gen: This is a 43-year-old female who is awake, alert and oriented 3, thin bu ilt, elderly appearing HEENT: Head is atraumatic, normocephalic. Pupils equal, round. Sclerae is anicteric. NECK: Supple. No JVD. No lymphadenopathy. No thyromegaly. LUNGS: Clear to auscultation. No wheezes or rhonchi. No intercostal retractions. HEART: Regular rate and rhythm. No murmur. ABDOMEN: Soft. thin, scaphoid Bowel sounds are present. No masses. No tenderness. EXTREMITIES: No pedal edema. No calf tenderness. NEUROLOGICAL: Patient is awake, alert and oriented x3. Cranial nerves 2 through 12 are grossly intact. Please refer to medication reconciliation sheet for a list of medications. The impression and plan of care has been dictated by Nicole Moncada, Nurse Practitioner as directed. Dr. Escobar MD I have performed a history and examination and MDM of this patient, discussed the same with the dictator, and agree with the dictator's assessment and plan as written ,documented as a scribe. Based on total visit time, I have performed more than 50% of the visit. Patient Condition at Discharge: Fair Plan - Discharge Summary Discharge Rx Participant: Yes New Discharge Prescriptions: New Levofloxacin [Levaquin] 500 mg PO DAILY 3 Days #3 tab amLODIPine [Norvasc] 10 mg PO DAILY #30 tab Sennosides [Senokot] 8.6 mg PO BID #30 tab Albuterol Nebulized [Ventolin Nebulized] 2.5 mg INHALATION RT-Q6H PRN #60 each PRN Reason: Shortness Of Breath Continue Albuterol Inhaler [Ventolin Hfa Inhaler] 1 - 2 puff INHALATION RT-Q6H PRN PRN Reason: Shortness Of Breath Topiramate [Topiramate ER (Sprinkle)] 200 mg PO DAILY SUMAtriptan succinate [Imitrex] 100 mg PO DAILY PRN PRN Reason: Migraine Headache HYDROcodone/APAP 10-325MG [[place] 10-325] 1 tab PO Q6HR PRN PRN Reason: Pain Famotidine [Pepcid] 20 mg PO DAILY #30 tablet Ondansetron [Zofran] 4 mg PO Q8HR PRN #30 tab PRN Reason: Nausea Loratadine [Claritin] 10 mg PO DAILY Ibuprofen [Advil] 200 mg PO Q6HR PRN PRN Reason: Pain Metoclopramide [Reglan] 10 mg PO Q12HR PRN 10 Days #20 tab PRN Reason: Nausea Semaglutide [Rybelsus] 3 mg PO DAILY Rosuvastatin Calcium 40 mg PO DAILY Biotin [Qggs-Ywpf-Pgdeq] 10,000 mcg PO DAILY Cholecalciferol [Vitamin D3 (25 Mcg = 1000 Iu)] 25 mcg PO DAILY Ketorolac [Toradol] 10 mg PO Q6HR PRN #15 tab PRN Reason: Pain Propranolol [Inderal] 20 mg PO DAILY Discontinued Ciprofloxacin HCl [Cipro] 250 mg PO Q12HR #10 tablet Discharge Medication List Albuterol Inhaler [Ventolin Hfa Inhaler] 1 - 2 puff INHALATION RT-Q6H PRN 04/15/17 [History] SUMAtriptan succinate [Imitrex] 100 mg PO DAILY PRN 01/13/18 [History] Topiramate [Topiramate ER (Sprinkle)] 200 mg PO DAILY 01/13/18 [History] HYDROcodone/APAP 10-325MG [[place] 10-325] 1 tab PO Q6HR PRN 01/14/18 [History] Famotidine [Pepcid] 20 mg PO DAILY #30 tablet 07/14/18 [Rx] Ondansetron [Zofran] 4 mg PO Q8HR PRN #30 tab 07/14/18 [Rx] Biotin [Xuae-Acjt-Urmig] 10,000 mcg PO DAILY 03/26/23 [History] Cholecalciferol [Vitamin D3 (25 Mcg = 1000 Iu)] 25 mcg PO DAILY 03/26/23 [History] Ibuprofen [Advil] 200 mg PO Q6HR PRN 03/26/23 [History] Ketorolac [Toradol] 10 mg PO Q6HR PRN #15 tab 03/26/23 [Rx] Loratadine [Claritin] 10 mg PO DAILY 03/26/23 [History] Rosuvastatin Calcium 40 mg PO DAILY 03/26/23 [History] Semaglutide [Rybelsus] 3 mg PO DAILY 03/26/23 [History] Propranolol [Inderal] 20 mg PO DAILY 03/27/23 [History] Albuterol Nebulized [Ventolin Nebulized] 2.5 mg INHALATION RT-Q6H PRN #60 each 04/02/23 [Rx] Levofloxacin [Levaquin] 500 mg PO DAILY 3 Days #3 tab 04/02/23 [Rx] Metoclopramide [Reglan] 10 mg PO Q12HR PRN 10 Days #20 tab 04/02/23 [Rx] Sennosides [Senokot] 8.6 mg PO BID #30 tab 04/02/23 [Rx] amLODIPine [Norvasc] 10 mg PO DAILY #30 tab 04/02/23 [Rx] Follow up Appointment(s)/Referral(s): Jeff Davila MD [STAFF PHYSICIAN] - 04/03/23 3:00 pm Rivera Tripp DO [Primary Care Provider] - 1-2 days Ambulatory/Diagnostic Orders: Complete Blood Count w/diff [LAB.AMB] Time Frame: 3 Days, Location: None Selected Patient Instructions/Handouts: Acute Abdominal Pain (DC) Activity/Diet/Wound Care/Special Instructions: Activity Limited until follow-up Follow-up with urology this week Follow-up with primary care provider this week Continue antibiotics for 3 days to complete a course Continue taking medications as prescribed Slowly advanced diet as tolerated and continue with yogurt 3 times daily Continue with incentive spirometer at least 10 times every hour while awake Discharge Disposition: HOME SELF-CARE
== END 2023-04-02 13:57 | disposition home or self-care (01) | DRG 720 ==
LOC: EC 16:04 → 6NMEDSUR 20:46 → OBSVTOIN 20:47 → 6NMEDSUR 03-28 06:48
PROVIDERS: ADMIT Hospitalist; ATTEND Hospitalist
DX: A41.9 Sepsis, unspecified organism (principal); D68.32 Hemorrhagic disorder due to extrinsic circulating anticoagulants; G40.909 Epilepsy, unspecified, not intractable, without status epilepticus; I10 Essential (primary) hypertension; E11.9 Type 2 diabetes mellitus without complications; E87.6 Hypokalemia; T45.515A Adverse effect of anticoagulants, initial encounter; N39.0 Urinary tract infection, site not specified; K21.9 Gastro-esophageal reflux disease without esophagitis; R31.9 Hematuria, unspecified; B96.89 Other specified bacterial agents as the cause of diseases classified elsewhere; Z96.0 Presence of urogenital implants; Z98.890 Other specified postprocedural states; Z28.310 Unvaccinated for COVID-19; Z87.891 Personal history of nicotine dependence; Z86.14 Personal history of Methicillin resistant Staphylococcus aureus infection; Z87.19 Personal history of other diseases of the digestive system; Z79.84 Long term (current) use of oral hypoglycemic drugs; Z87.442 Personal history of urinary calculi; Z88.5 Allergy status to narcotic agent; Z88.0 Allergy status to penicillin; Z88.2 Allergy status to sulfonamides; Z79.899 Other long term (current) drug therapy
CPT/HCPCS: 36415; 74176; 76770; 80048; 80053; 81001; 82150; 83036; 83605; 83690; 83735; 84132; 85025; 87040; 87086; 94640; 96361; 96374; 96375; 96376; 99285

== ENCOUNTER → 2023-06-03 | Outpatient (CLI) | payer OTHER ==
--- NOTE | 2023-06-03 13:14 | US ---
EXAMINATION TYPE: US kidneys/renal and bladder DATE OF EXAM: 06/03/2023 COMPARISON: 03/27/23 Ultrasound; 03/27/23 CT CLINICAL INDICATION: Female, 43 years old with history of N20.1 CALCULUS OF URETER; Hx renal stones; hx left uretal stent EXAM MEASUREMENTS: Right Kidney: 10.8 x 5.3 x 5.0 cm Left Kidney: 10.5 x 6.1 x 5.1 cm Post Void Residual Volume: 58 mL Right Kidney: No hydronephrosis or masses seen Left Kidney: No hydronephrosis or masses seen Bladder: Wnl Bilateral Jets seen: yes There is no evidence for hydronephrosis at this point in time. No nephrolithiasis is seen. No noman s are identified. Cortical medullary differentiation is maintained bilaterally. The urinary bladder i s anechoic. Bilateral ureteral jets are seen. No left ureteral stent identified. IMPRESSION: 1. No hydronephrosis or nephrolithiasis. 2. Post void residual of 58 mL.
== END | disposition home or self-care (01) ==
LOC: RADUSWWP 12:39
PROVIDERS: ATTEND Urology
DX: N20.1 Calculus of ureter (principal); R33.9 Retention of urine, unspecified; Z87.442 Personal history of urinary calculi
CPT/HCPCS: 76770

== ENCOUNTER 2023-07-10 19:26 | Inpatient (IN) | payer OTHER ==
[2023-07-10] MEDS ORDERED: PANTOPRAZOLE 40 MG/10 ML VIAL IVP STA (20:52)
[2023-07-10] MEDS ORDERED: MORPHINE SULFATE 4 MG/ML SYRINGE IVP STA (20:52)
[2023-07-10] MEDS ORDERED: SODIUM CHLORIDE 0.9% 1,000 ML IV STA ×2 (20:52)
[2023-07-10] MEDS ORDERED: ONDANSETRON 4 MG/2 ML VIAL IVP STA (20:52)
--- NOTE | 2023-07-10 20:53 | ED ---
Nausea/Vomiting/Diarrhea HPI - General Chief complaint: Nausea/Vomiting/Diarrhea Stated complaint: vomiting Time Seen by Provider: 07/10/23 20:52 Source: patient, RN notes reviewed, old records reviewed Mode of arrival: wheelchair Limitations: no limitations - History of Present Illness Initial comments: This is a 43-year-old female to the emergency department for evaluation today. Patient does have history of GI bleed history of colonoscopy positive for diverticulosis no other acute findings which she believes is about 6 years ago. Patient presents today for abdominal pain and nausea vomiting the last 2 days she states she has felt feverish without documented fever. No family members with similar complaint no known sick contacts. Patient is on blood thinners. Patient has no history of liver disease. Patient's abdominal pain patient with persistent nausea vomiting and decreased appetite now again for 2 days MD complaint: nausea, vomiting, abdominal pain (Left lower quadrant) -: days(s) (2) Description of Vomiting: food contents, blood-streaked (Patient has not noticed any red blood-tinged vomit), coffee grounds Associated Abdominal Pain: Yes Location: diffuse, LLQ Radiation: none Severity: moderate Severity scale (1-10): 4 Quality: cramping, stabbing Consistency: intermittent Improves with: none Worsens with: none Associated Symptoms: loss of appetite, malaise, nausea/vomiting, weakness - Related Data Home Medications Medication Instructions Recorded Confirmed Albuterol Inhaler [Ventolin Hfa 1 - 2 puff INHALATION RT-Q6H PRN 04/15/17 07/10/23 Inhaler] Topiramate [Topiramate ER 200 mg PO DAILY 01/13/18 07/10/23 (Sprinkle)] HYDROcodone/APAP 10-325MG [[place] 0.5 tab PO BID 01/14/18 07/10/23 10-325] Biotin [Mchk-Pdjn-Bmzyd] 20,000 mcg PO DAILY 03/26/23 07/10/23 Cholecalciferol [Vitamin D3 (25 25 mcg PO HS 03/26/23 07/10/23 Mcg = 1000 Iu)] Ibuprofen [Advil] 400 mg PO BID 03/26/23 07/10/23 Loratadine [Claritin] 10 mg PO DAILY 03/26/23 07/10/23 Rosuvastatin Calcium 40 mg PO DAILY 03/26/23 07/10/23 Propranolol [Inderal] 20 mg PO DAILY 03/27/23 07/10/23 Cyclobenzaprine [Flexeril] 10 mg PO HS 07/10/23 07/10/23 Glucagon Emergency Kit 1 mg IM ONCE PRN 07/10/23 07/10/23 INSULIN LISPRO (humaLOG) [humaLOG] See Protocol SQ AC-TID 07/10/23 07/10/23 Insulin Detemir [Levemir Flexpen] 10 units SQ DAILY 07/10/23 07/10/23 Naproxen [Naprosyn] 500 mg PO BID PRN 07/10/23 07/10/23 Previous Rx's Medication Instructions Recorded Famotidine [Pepcid] 20 mg PO DAILY #30 tablet 07/14/18 Allergies Allergy/AdvReac Type Severity Reaction Status Date / Time codeine AdvReac Nausea & Verified 07/10/23 23:22 Vomiting Penicillins AdvReac Nausea & Verified 07/10/23 23:22 Vomiting Sulfa (Sulfonamide AdvReac Nausea & Verified 07/10/23 23:22 Antibiotics) Vomiting tramadol AdvReac Unknown Verified 07/10/23 23:22 Review of Systems ROS Statement: Those systems with pertinent positive or pertinent negative responses have been documented in the HPI. ROS Other: All systems not noted in ROS Statement are negative. Past Medical History Past Medical History: Asthma, Diabetes Mellitus, GI Bleed, Seizure Disorder Additional Past Medical History / Comment(s): NIDDM type II, [place] seizure once in 2017, lower GI bleed, mild diverticular dx, PCOS, bronchitis, pneumonia, migraines, allergic rhinitis. Kidney stones History of Any Multi-Drug Resistant Organisms: MRSA, None Reported Date of last positivie culture/infection: 2011 MDRO Source:: Lungs Past Surgical History: Section, Tubal Ligation Additional Past Surgical History / Comment(s): colonoscopies, R groin mole remov ed then resected d/t abnormal cells-bening. Past Anesthesia/Blood Transfusion Reactions: No Reported Reaction Past Psychological History: No Psychological Hx Reported Smoking Status: Never smoker Past Alcohol Use History: Rare Past Drug Use History: None Reported - Past Family History Father Family Medical History: Cancer Additional Family Medical History / Comment(s): COLON, MELANOMA ON HIS CHEST AND HE ALSO HAS BENIGN BRAIN TUMORS 2, diabetes, pancreatic cancer. FATHER IS 68 YRS OLD. Mother Family Medical History: Cancer, Dialysis Additional Family Medical History / Comment(s): MELANOMA THAT METASTASIZED TO THE BRAIN- FROM AT AGE 49 YRS. Mother had an IL at age 34 and history of diabetes. Patient has many aunts, uncles and nieces with diabetes on her mother's side. Brother(s) Additional Family Medical History / Comment(s): Patient has one half-brother and one full brother with no major medical problems. Patient has 1 sister with no major medical problems. Daughter(s) Additional Family Medical History / Comment(s): Patient has 2 daughters and her youngest daughter has history of seizure disorder. Patient has one son with no major medical problems. General Exam Limitations: no limitations General appearance: alert, in no apparent distress, anxious, in distress Head exam: Present: atraumatic, normocephalic, normal inspection Eye exam: Present: normal appearance, PERRL, EOMI. Absent: scleral icterus, conjunctival injection, periorbital swelling ENT exam: Present: mucous membranes dry Neck exam: Present: normal inspection. Absent: tenderness, meningismus, lymphadenopathy Respiratory exam: Present: normal lung sounds bilaterally. Absent: respiratory distress, wheezes, rales, rhonchi, stridor Cardiovascular Exam: Present: normal rhythm, tachycardia, normal heart sounds. Absent: systolic murmur, diastolic murmur, rubs, gallop, clicks GI/Abdominal exam: Present: soft, normal bowel sounds. Absent: distended, tenderness, guarding, rebound, rigid Extremities exam: Present: normal inspection, full ROM, normal capillary refill. Absent: tenderness, pedal edema, joint swelling, calf tenderness Back exam: Present: normal inspection Neurological exam: Present: alert, oriented X3, CN II-XII intact Psychiatric exam: Present: normal affect, normal mood Skin exam: Present: warm, dry, intact, normal color. Absent: rash Course Vital Signs 07/10/23 07/10/23 07/11/23 19:50 23:00 07:04 Temperature 97.9 F 99.1 F Pulse Rate 126 H 98 110 H Respiratory 18 18 16 Rate Blood Pressure 119/65 138/80 96/55 O2 Sat by Pulse 98 100 95 Oximetry 07/11/23 07/11/23 07/11/23 07:10 07:31 08:00 Temperature Pulse Rate 112 H Respiratory Rate Blood Pressure 74/54 77/57 88/61 O2 Sat by Pulse 95 93 L Oximetry 07/11/23 07/11/23 07/11/23 08:30 09:05 09:30 Temperature Pulse Rate 114 H Respiratory 16 Rate Blood Pressure 74/53 80/55 94/69 O2 Sat by Pulse 93 L Oximetry 07/11/23 07/11/23 07/11/23 10:00 10:30 10:57 Temperature Pulse Rate 123 H 128 H 134 H Respiratory 17 20 20 Rate Blood Pressure 90/60 117/70 104/84 O2 Sat by Pulse 93 L 95 95 Oximetry 07/11/23 07/11/23 07/11/23 11:09 11:15 11:32 Temperature 98.4 F Pulse Rate 147 H 137 H Respiratory 20 18 Rate Blood Pressure 116/62 115/81 O2 Sat by Pulse 96 96 Oximetry 07/11/23 07/11/23 07/11/23 11:52 11:55 12:32 Temperature 103.2 F H 103.5 F H Pulse Rate 122 H Respiratory 18 Rate Blood Pressure 91/57 O2 Sat by Pulse 95 Oximetry 07/11/23 07/11/23 07/11/23 13:00 13:31 13:45 Temperature 101.1 F H Pulse Rate 123 H 123 H 107 H Respiratory 17 20 16 Rate Blood Pressure 80/49 78/51 82/52 O2 Sat by Pulse 95 94 L 93 L Oximetry 07/11/23 07/11/23 07/11/23 14:00 14:15 14:30 Temperature 99.2 F Pulse Rate 109 H 114 H 109 H Respiratory 17 17 16 Rate Blood Pressure 79/48 80/46 77/49 O2 Sat by Pulse 94 L 96 95 Oximetry 07/11/23 07/11/23 07/11/23 14:45 15:03 15:16 Temperature Pulse Rate 108 H 105 H 106 H Respiratory 18 17 18 Rate Blood Pressure 78/48 78/48 76/50 O2 Sat by Pulse 95 95 95 Oximetry 07/11/23 15:25 Temperature 98.5 F Pulse Rate Respiratory Rate Blood Pressure O2 Sat by Pulse Oximetry - Reevaluation(s) Reevaluation #1: 07/10/23 22:40 Medical records reviewed Reevaluation #2: 10/25/23 22:40 Patient is having persistent nausea although vomiting is stopped with medication Reevaluation #3: 07/10/23 22:41 Patient informed results questions answered Reevaluation #4: 07/10/23 22:41 Was pt. sent in by a medical professional or institution (EVIE Killian, ANESTHESIOLOGISTS' ASSISTANT, urgent care, hospital, or snf...) When possible be specific @ -no Did you speak to anyone other than the patient for history (EMS, parent, family, police, friend...)? What history was obtained from this source @ -no Did you review nursing and triage notes (agree or disagree)? Why? @ -agree Are old charts reviewed (outside hosp., previous admission, EMS record, old EKG, old radiological studies, urgent care reports/EKG's, snf records)? Report findings @ -yes Differential Diagnosis (chest pain, altered mental status, abdominal pain women, abdominal pain men, vaginal bleeding, weakness, fever, dyspnea, syncope, headache, dizziness, GI bleed, back pain, seizure, CVA, palpatations, mental health, musculoskeletal)? @ -prior EKG interpreted by me (3pts min.). @ -yes X-rays interpreted by me (1pt min.). @ -no CT interpreted by me (1pt min.). @ -yes U/S interpreted by me (1pt. min.). @ -no What testing was considered but not performed or refused? (CT, X-rays, U/S, l abs)? Why? @ -none What meds were considered but not given or refused? Why? @ -none Did you discuss the management of the patient with other professionals (professionals i.e. EVIE Killian, ANESTHESIOLOGISTS' ASSISTANT, lab, RT, psych nurse, social science analyst, thread winder, teacher, chief information officer, lead case manager)? Give summary @ -no Was smoking cessation discussed for >3mins.? @ -no Was critical care preformed (if so, how long)? @ -yes65 Were there social determinants of health that impacted care today? How? (Homelessness, low income, unemployed, alcoholism, drug addiction, transportation, low edu. Level, literacy, decrease access to med. care, half-way, rehab)? @ -none Was there de-escalation of care discussed even if they declined (Discuss DNR or withdrawal of care, Hospice)? DNR status @ -no What co-morbidities impacted this encounter? (DM, HTN, Smoking, COPD, CAD, Cancer, CVA, ARF, Chemo, Hep., AIDS, mental health diagnosis, sleep apnea, morbid obesity)? @ -none Was patient admitted / discharged? Hospital course, mention meds given and route, prescriptions, significant lab abnormalities, going to OR and other pertinent info. @ - 43 female to the emergency department today for evaluation of nausea vomiting and abdominal pain. Patient does have likely upper GI bleed likely with coffee ground emesis and gastric occult positive, patient does have UTI polynephritis was kidney stone found. Admitted Undiagnosed new problem with uncertain prognosis? @ -no Drug Therapy requiring intensive monitoring for toxicity (Heparin, Nitro, Insulin, Cardizem)? @ -no Were any procedures done? @ -no Diagnosis/symptom? @ -UTI, abdominal pain, upper GI bleed, pyelonephritis with kidney stone Acute, or Chronic, or Acute on Chronic? @ -Acute Uncomplicated (without systemic symptoms) or Complicated (systemic symptoms)? @ -Complicated Side effects of treatment? @ -no Exacerbation, Progression, or Severe Exacerbation? @ -exacerbation Poses a threat to life or bodily function? How? (Chest pain, [place], [place], pneumonia, PE, COPD, DKA, ARF, appy, cholecystitis, CVA, Diverticulitis, Homicidal, Suicidal, threat to staff... and all critical care pts) @ -yes multiple current diagnoses that could lead to mortality Reevaluation #5: 07/10/23 22:41 Differential Abdominal Pain Women: Appendicitis, Cholecystitis, diverticulosis, ischemic bowel, pancreatitis, hepatitis, UTI, gastroenteritis, AAA, incarcerated hernia, bowel obstruction, constipation, inflammatory bowel, hepatitis, peptic ulcer disease, splenic infarction, perforated viscus, vulvitis, ovarian torsion, PID, kidney stone, placenta abruption, this is not meant to be an all-inclusive list - Consultations Consultation #1: Spoke with Dr. Ortiz aware of patient's positive gastric occult blood and vomiting coffee-ground emesis, Dr. Ortiz will see the patient from a surgical consult on admission Consultation #2: Spoke with [facility] were also agrees to admit the patient with Dr. Ortiz consult and Procedures - Sepsis Sepsis Focused Exam #1 Time Sepsis Criteria Met: 23:00 Sepsis Focused Exam Date: 07/11/23 Sepsis Focused Exam Time: 03:00 Sepsis Focused Exam Complete: Yes Vital Signs & RN Notes Reviewed: Yes Capillary Refill: < 2 Seconds: Fingers, Toes Peripheral Pulses: Normal: Radial (R), Radial (L), Posterior Tibialis (R), Posterior Tibialis (L), Dorsalis Pedis (R), Dorsalis Pedis (L) Skin Color: Normal for Patient Respiratory Exam: normal lung sounds Cardiovascular Exam: tachycardia Medical Decision Making - Medical Decision Making 43 female to the emergency department today for evaluation of nausea vomiting and abdominal pain. Patient does have likely upper GI bleed likely with coffee ground emesis and gastric occult positive, patient does have significant urinary tract infection kidney stone with hydronephrosis. Patient initial concern is upper GI bleed and IV antibiotics for UTI with sepsis - Lab Data Result diagrams: 07/11/23 07:34 07/11/23 07:34 Lab Results 07/10/23 07/10/23 07/10/23 Range/Units 21:00 21:00 21:00 WBC 15.8 H (3.8-10.6) k/uL RBC 4.32 (3.80-5.40) m/uL Hgb 12.5 (11.4-16.0) gm/dL Hct 37.4 (34.0-46.0) % MCV 86.5 (80.0-100.0) fL MCH 29.0 (25.0-35.0) pg MCHC 33.5 (31.0-37.0) g/dL RDW 13.5 (11.5-15.5) % Plt Count 222 (150-450) k/uL MPV 8.6 Neutrophils % 92 % Lymphocytes % 2 % Monocytes % 5 % Eosinophils % 0 % Basophils % 0 % Neutrophils # 14.5 H (1.3-7.7) k/uL Lymphocytes # 0.4 L (1.0-4.8) k/uL Monocytes # 0.7 (0-1.0) k/uL Eosinophils # 0.0 (0-0.7) k/uL Basophils # 0.0 (0-0.2) k/uL Sodium 131 L (137-145) mmol/L Potassium 4.9 (3.5-5.1) mmol/L Chloride 95 L (98-107) mmol/L Carbon Dioxide 12 L (22-30) mmol/L Anion Gap 24 mmol/L BUN 27 H (7-17) mg/dL Creatinine 1.24 H (0.52-1.04) mg/dL Est GFR (CKD-EPI)AfAm 61 (>60 ml/min/1.73 sqM) Est GFR (CKD-EPI)NonAf 53 (>60 ml/min/1.73 sqM) Glucose 409 H (74-99) mg/dL Plasma Lactic Acid Carlos (0.7-2.0) mmol/L Calcium 9.9 (8.4-10.2) mg/dL Total Bilirubin 0.6 (0.2-1.3) mg/dL AST 19 (14-36) U/L ALT 16 (4-34) U/L Alkaline Phosphatase 122 (38-126) U/L Troponin I (0.000-0.034) ng/mL Total Protein 7.2 (6.3-8.2) g/dL Albumin 4.0 (3.5-5.0) g/dL Amylase <30 L (30-110) U/L Lipase 53 (23-300) U/L Urine Color Yellow Urine Appearance Slightly Cloudy H (Clear) Urine pH 6.5 (5.0-8.0) Ur Specific [place] 1.020 (1.001-1.035) Urine Protein 1+ H (Negative) Urine Glucose (UA) 4+ H (Negative) Urine Ketones 4+ H (Negative) Urine Blood Large (Negative) Urine Nitrite Positive (Negative) Urine Bilirubin Negative (Negative) Urine Urobilinogen <2.0 (<2.0) mg/dL Ur Leukocyte Esterase Large (Negative) Urine RBC >182 H (0-5) /hpf Urine WBC >182 H (0-5) /hpf Urine WBC Clumps Many H (None) /hpf Ur Squamous Epith Cells 16 H (0-4) /hpf Urine Bacteria Rare H (None) /hpf Urine Mucus Rare H (None) /hpf Urine HCG, Qual (Not Detectd) Gastric Occult Blood (Negative) 07/10/23 07/10/23 07/10/23 Range/Units 21:00 21:00 21:00 WBC (3.8-10.6) k/uL RBC (3.80-5.40) m/uL Hgb (11.4-16.0) gm/dL Hct (34.0-46.0) % MCV (80.0-100.0) fL MCH (25.0-35.0) pg MCHC (31.0-37.0) g/dL RDW (11.5-15.5) % Plt Count (150-450) k/uL MPV Neutrophils % % Lymphocytes % % Monocytes % % Eosinophils % % Basophils % % Neutrophils # (1.3-7.7) k/uL Lymphocytes # (1.0-4.8) k/uL Monocytes # (0-1.0) k/uL Eosinophils # (0-0.7) k/uL Basophils # (0-0.2) k/uL Sodium (137-145) mmol/L Potassium (3.5-5.1) mmol/L Chloride (98-107) mmol/L Carbon Dioxide (22-30) mmol/L Anion Gap mmol/L BUN (7-17) mg/dL Creatinine (0.52-1.04) mg/dL Est GFR (CKD-EPI)AfAm (>60 ml/min/1.73 sqM) Est GFR (CKD-EPI)NonAf (>60 ml/min/1.73 sqM) Glucose (74-99) mg/dL Plasma Lactic Acid Carlos 1.8 (0.7-2.0) mmol/L Calcium (8.4-10.2) mg/dL Total Bilirubin (0.2-1.3) mg/dL AST (14-36) U/L ALT (4-34) U/L Alkaline Phosphatase (38-126) U/L Troponin I <0.012 (0.000-0.034) ng/mL Total Protein (6.3-8.2) g/dL Albumin (3.5-5.0) g/dL Amylase (30-110) U/L Lipase (23-300) U/L Urine Color Urine Appearance (Clear) Urine pH (5.0-8.0) Ur Specific [place] (1.001-1.035) Urine Protein (Negative) Urine Glucose (UA) (Negative) Urine Ketones (Negative) Urine Blood (Negative) Urine Nitrite (Negative) Urine Bilirubin (Negative) Urine Urobilinogen (<2.0) mg/dL Ur Leukocyte Esterase (Negative) Urine RBC (0-5) /hpf Urine WBC (0-5) /hpf Urine WBC Clumps (None) /hpf Ur Squamous Epith Cells (0-4) /hpf Urine Bacteria (None) /hpf Urine Mucus (None) /hpf Urine HCG, Qual Not Detected (Not Detectd) Gastric Occult Blood (Negative) 07/10/23 Range/Units 21:51 WBC (3.8-10.6) k/uL RBC (3.80-5.40) m/uL Hgb (11.4-16.0) gm/dL Hct (34.0-46.0) % MCV (80.0-100.0) fL MCH (25.0-35.0) pg MCHC (31.0-37.0) g/dL RDW (11.5-15.5) % Plt Count (150-450) k/uL MPV Neutrophils % % Lymphocytes % % Monocytes % % Eosinophils % % Basophils % % Neutrophils # (1.3-7.7) k/uL Lymphocytes # (1.0-4.8) k/uL Monocytes # (0-1.0) k/uL Eosinophils # (0-0.7) k/uL Basophils # (0-0.2) k/uL Sodium (137-145) mmol/L Potassium (3.5-5.1) mmol/L Chloride (98-107) mmol/L Carbon Dioxide (22-30) mmol/L Anion Gap mmol/L BUN (7-17) mg/dL Creatinine (0.52-1.04) mg/dL Est GFR (CKD-EPI)AfAm (>60 ml/min/1.73 sqM) Est GFR (CKD-EPI)NonAf (>60 ml/min/1.73 sqM) Glucose (74-99) mg/dL Plasma Lactic Acid Carlos (0.7-2.0) mmol/L Calcium (8.4-10.2) mg/dL Total Bilirubin (0.2-1.3) mg/dL AST (14-36) U/L ALT (4-34) U/L Alkaline Phosphatase (38-126) U/L Troponin I (0.000-0.034) ng/mL Total Protein (6.3-8.2) g/dL Albumin (3.5-5.0) g/dL Amylase (30-110) U/L Lipase (23-300) U/L Urine Color Urine Appearance (Clear) Urine pH (5.0-8.0) Ur Specific [place] (1.001-1.035) Urine Protein (Negative) Urine Glucose (UA) (Negative) Urine Ketones (Negative) Urine Blood (Negative) Urine Nitrite (Negative) Urine Bilirubin (Negative) Urine Urobilinogen (<2.0) mg/dL Ur Leukocyte Esterase (Negative) Urine RBC (0-5) /hpf Urine WBC (0-5) /hpf Urine WBC Clumps (None) /hpf Ur Squamous Epith Cells (0-4) /hpf Urine Bacteria (None) /hpf Urine Mucus (None) /hpf Urine HCG, Qual (Not Detectd) Gastric Occult Blood Positive (Negative) - Radiology Data Radiology results: report reviewed (CT of the abdomen and pelvis does have right UPJ kidney stone), image reviewed Critical Care Time Critical Care Time: Yes Total Critical Care Time: 65 Disposition Clinical Impression: Nausea & vomiting, Gastroenteritis, GI bleed, UGIB (upper gastrointestinal bleed), Urinary tract infection, Right ureteral stone, Hydronephrosis Disposition: ADMITTED IP TO THIS [facility] Condition: Serious Is patient prescribed a controlled substance at d/c from ED?: No Time of Disposition: 22:45
[2023-07-10] MEDS ORDERED: ACETAMINOPHEN IV (For NPO) 1,000 MG in EMPTY BAG 1 BAG IVPB STA (20:54)
[2023-07-10] MEDS ORDERED: IBUPROFEN IV 800 MG in SODIUM CHLORIDE 0.9% 250 ML IV ONE (21:15)
[2023-07-10 21:24] LABS: Basophils % (A) 0 %; Eosinophils % (A) 0 %; HCT 37.4 % (34.0-46.0); HGB 12.5 gm/dL (11.4-16.0); Lymphocytes # (A) 0.4 k/uL (1.0-4.8); Lymphocytes % (A) 2 %; MCHC 33.5 g/dL (31.0-37.0); MCV 86.5 fL (80.0-100.0); Mean Platelet Volume 8.6; Monocytes # (A) 0.7 k/uL (0-1.0); Monocytes % (A) 5 %; Neutrophils # (A) 14.5 k/uL (1.3-7.7); Neutrophils % (A) 92 %; Platelet Count 222 k/uL (150-450); RBC 4.32 m/uL (3.80-5.40); RDW 13.5 % (11.5-15.5); WBC 15.8 k/uL (3.8-10.6)
[2023-07-10 21:31] LABS: ALT 16 U/L (4-34); AST 19 U/L (14-36); African American GFR (CKD) 61 (>60 ml/min/1.73 sqM); Alkaline Phosphatase 122 U/L (38-126); Anion Gap 24 mmol/L; Blood Urea Nitrogen 27 mg/dL (7-17); Calcium 9.9 mg/dL (8.4-10.2); Carbon Dioxide 12 mmol/L (22-30); Chloride 95 mmol/L (98-107); Glucose 409 mg/dL (74-99); Lipase 53 U/L (23-300); Non-African American GFR(CKD) 53 (>60 ml/min/1.73 sqM); Potassium 4.9 mmol/L (3.5-5.1); Sodium 131 mmol/L (137-145); Total Bilirubin 0.6 mg/dL (0.2-1.3); Total Protein 7.2 g/dL (6.3-8.2)
[2023-07-10 21:35] LABS: Amylase <30 U/L (30-110)
[2023-07-10] MEDS ORDERED: NALOXONE 0.4 MG/ML 1 ML VIAL IV PRN (22:37)
[2023-07-10 23:00] LABS: Appearance,Urine Slightly Cloudy (Clear); Color,Urine Yellow; PH, Urine 6.5 (5.0-8.0)
[2023-07-10 23:01] LABS: Glucose,Urine (UA) 4+ (Negative); Protein,Urine 1+ (Negative)
[2023-07-10] MEDS: SODIUM CHLORIDE 0.9% 1,000 ML IV SCH (23:01)
[2023-07-10 23:03] LABS: Bilirubin,Urine Negative (Negative); Blood,Urine Large (Negative); Ketones,Urine 4+ (Negative); Leukocyte Esterase,Urine Large (Negative); Nitrite,Urine Positive (Negative); Urobilinogen,Urine <2.0 mg/dL (<2.0)
[2023-07-10 23:09] LABS: Bacteria,Urine Rare /hpf; Mucus,Urine Rare /hpf; RBC,Urine >182 /hpf (0-5); Squamous Epithelial Cell,Urine 16 /hpf (0-4); WBC,Urine >182 /hpf (0-5)
[2023-07-10] MEDS ORDERED: SODIUM CHLORIDE 0.9% 500 ML 500 ML IV ONE (23:10)
--- NOTE | 2023-07-10 23:48 | CT ---
EXAM: CT Abdomen and Pelvis With Intravenous Contrast CLINICAL HISTORY: pain TECHNIQUE: Axial computed tomography images of the abdomen and pelvis with intravenous contrast. CTDI is 13.7 mGy and DLP is 610 mGy-cm. This CT exam was performed using one or more of the following dose reduction techniques: automated exposure control, adjustment of the mA and/or kV according to patient size, and/or use of iterative reconstruction technique. COMPARISON: CT abdomen and pelvis without contrast dated 03/30/2023 FINDINGS: Lung bases: Unremarkable. No mass. No consolidation. ABDOMEN: Liver: Hepatic steatosis. Gallbladder and bile ducts: Unremarkable. No calcified stones. No ductal dilation. Pancreas: Unremarkable. No mass. No ductal dilation. Spleen: Unremarkable. No splenomegaly. Adrenals: Unremarkable. No mass. Kidneys and ureters: There has been interval removal of the left double-J ureteral stent. There is a 7 mm stone at the UPJ with mild right hydronephrosis. There is gas within the left collecting system. The left kidney demonstrates normal enhancement. There are several additional nephrolithiasis noted in the inferior renal pelvis and involving inferior pole calyces. The right kidney demonstrates normal enhancement. No hydronephrosis. Subcentimeter nephrolithiasis involving the inferior pole of the right kidney. Stomach and bowel: Moderate stool burden. No evidence for bowel obstruction. No asymmetric bowel mucosal abnormality. PELVIS: Appendix: No findings to suggest acute appendicitis. Bladder: The bladder is moderately distended without wall abnormalities or calcifications. There is gas in the anterior aspect of the bladder. Reproductive: Unremarkable as visualized. ABDOMEN and PELVIS: Intraperitoneal space: Unremarkable. No free air. No significant fluid collection. Bones/joints: No acute fracture. No dislocation. Soft tissues: Unremarkable. Vasculature: Unremarkable. No abdominal aortic aneurysm. Lymph nodes: Unremarkable. No enlarged lymph nodes. IMPRESSION: There is a 7 mm stone at the UPJ with mild right hydronephrosis. There is gas within the left collecting system. There is also gas noted in the bladder. There is no history of bladder catheterization or recent intervention, the findings are highly concerning for infection with gas- forming organism. Please correlate with laboratory findings and clinical history.
[2023-07-10] MEDS: ONDANSETRON 4 MG/2 ML VIAL IVP PRN (23:58)
[2023-07-11] MEDS: MORPHINE SULFATE 4 MG/ML SYRINGE IV PRN ×2 (01:06→11:14)
[2023-07-11] MEDS ORDERED: ALBUTEROL HFA INHALER INHALATION PRN (07:12)
[2023-07-11] MEDS ORDERED: DEXTROSE 50% SYRINGE 50 ML IVP PRN ×2 (07:12)
[2023-07-11] MEDS ORDERED: SODIUM CHLORIDE 0.9% 500 ML 500 ML IV ONE (07:27)
[2023-07-11 07:50] LABS: Glucose,Whole Blood 334 mg/dL (70-110)
[2023-07-11 08:00] LABS: HCT 27.9 % (34.0-46.0); MCH 29.2 pg (25.0-35.0); MCHC 33.3 g/dL (31.0-37.0); MCV 87.7 fL (80.0-100.0); Mean Platelet Volume 8.6; Platelet Count 122 k/uL (150-450); RBC 3.18 m/uL (3.80-5.40); RDW 13.6 % (11.5-15.5); WBC 6.2 k/uL (3.8-10.6)
[2023-07-11] MEDS ORDERED: INSULIN DETEMIR (LEVEMIR) 100 UNIT/ML SYR SQ SCH (08:00)
[2023-07-11 08:32] LABS: ALT 17 U/L (4-34); AST 30 U/L (14-36); African American GFR (CKD) 41 (>60 ml/min/1.73 sqM); Albumin 2.5 g/dL (3.5-5.0); Alkaline Phosphatase 112 U/L (38-126); Anion Gap 17 mmol/L; Blood Urea Nitrogen 33 mg/dL (7-17); Calcium 8.3 mg/dL (8.4-10.2); Carbon Dioxide 13 mmol/L (22-30); Chloride 103 mmol/L (98-107); Glucose 331 mg/dL (74-99); Magnesium 1.7 mg/dL (1.6-2.3); Non-African American GFR(CKD) 36 (>60 ml/min/1.73 sqM); Phosphorus 3.1 mg/dL (2.5-4.5); Sodium 133 mmol/L (137-145); Total Bilirubin 0.3 mg/dL (0.2-1.3); Total Protein 4.9 g/dL (6.3-8.2)
[2023-07-11 08:58] LABS: HGB 9.3 gm/dL (11.4-16.0)
[2023-07-11] MEDS ORDERED: PANTOPRAZOLE 40 MG/10 ML VIAL IV SCH (09:00)
[2023-07-11] MEDS: ONDANSETRON 4 MG/2 ML VIAL IVP PRN (09:15)
[2023-07-11] MEDS: INSULIN ASPART (NovoLOG) 100 UNIT/ML VIAL SQ SCH ×2 (09:23→12:01)
--- NOTE | 2023-07-11 11:15 | P.GSCN ---
History of Present Illness Consult date: 07/11/23 History of present illness: CHIEF COMPLAINT: Coffee-ground emesis HISTORY OF PRESENT ILLNESS: This is a 43-year-old female who presented to the hospital with complaints of vomiting dark emesis since yesterday at 5 PM. She does report mild epigastric tenderness and left lower quadrant tenderness. She reports a history of peptic ulcer disease. Reports never having an EGD before. She has been on Advil 400 mg twice a day since March for kidney stones. She reports her last colonoscopy was over 10 years ago. Patient's hemoglobin on admission was 12.5 down to 9.3. Gastric blood was positive. Patient is been tachycardic and hypotensive. Received IV fluid boluses. Started on IV Protonix. PAST MEDICAL HISTORY: See list. PAST SURGICAL HISTORY: See list. MEDICATIONS: See list. ALLERGIES: See list. SOCIAL HISTORY: No illicit drug use. REVIEW OF SYSTEMS: CONSTITUTIONAL: Denies fever or chills. HEENT: Denies blurred vision, vision changes, or eye pain. Denies hemoptysis ENDOCRINE: Denies heat or cold intolerance. CARDIOVASCULAR: Denies chest pain or pressure. RESPIRATORY: No shortness of breath. GASTROINTESTINAL: Please refer to HPI. Otherwise unremarkable. NEURO: Denies history of seizures. PSYCH: No depression or suicidal ideation HEMATOLOGIC: Denies bleeding disorders. LYMPHATIC: The patient denies any lumps and bumps around the neck. GENITOURINARY: Denies any blood in urine or increased urinary frequency. MUSCULOSKELETAL: Denies myalgias. Denies joint swelling. Denies decreased range of motion beyond patients baseline. SKIN: Denies pruitis. Denies rash. PHYSICAL EXAM: VITAL SIGNS: Reviewed GENERAL: Well-developed in no acute distress. HEENT: No sclera icterus. Extraocular movements grossly intact. Moist buccal mucosa. Head is atraumatic, normocephalic. Hears conversational speech. No nasal drainage. NECK: Supple without lymphadenopathy. CHEST: Non-labored respirations and equal bilateral excursions. CARDIOVASCULAR: Palpable 2+ radial pulses. ABDOMEN: Soft. Nondistended. Mild tenderness epigastric area with palpation. Pain with palpation of the left lower quadrant. MUSCULOSKELETAL: No clubbing or cyanosis. NEUROLOGIC: No focal or lateralizing signs. Cranial nerves II through XII grossly intact. PSYCH: Appropriate affect. Alert and oriented to person, place and time. SKIN: Well perfused. Good skin turgor. LABORATORY DATA: WBC 15.8 down to 6.2 hemoglobin 12.5-9.3 plt 122 Sodium 133 K 4.0 Cr 1.71 Glucose 334 Gastric occult blood positive IMAGING: Computed tomography scan shows a 7 mm stone in the UPJ with mild right hydronephrosis. There is gas was in the left collecting system. There is also gas noted in the bladder. There is no history of bladder catheterization a recent intervention. Findings are highly concerning for infection with gas- forming organism. ASSESSMENT: 1. Acute blood loss anemia with possible upper GI bleed and coffee-ground emesis 2. Daily NSAID use 3. Diabetes mellitus 4. Nephrolithiasis 5. 7 mm stone in the UPJ mild right hydronephrosis 6. UTI 7. Diabetes mellitus 8. Acute kidney injury PLAN: -Patient scheduled for EGD today with Dr. Craven -Keep patient nothing by mouth -Continue IV fluids -Continue IV Protonix -Continue to monitor hemoglobin -Continue to monitor for any signs or symptoms of bleeding Physician Quality Review Trainer note has been reviewed by physician. Signing provider agrees with the documented findings, assessment, and plan of care. Past Medical History Past Medical History: Asthma, Diabetes Mellitus, GI Bleed, Seizure Disorder Additional Past Medical History / Comment(s): NIDDM type II, grand mall seizure once in 2017, lower GI bleed, mild diverticular dx, PCOS, bronchitis, pneumonia, migraines, allergic rhinitis. Kidney stones History of Any Multi-Drug Resistant Organisms: MRSA, None Reported Year Discovered:: 2011 MDRO Source:: Lungs Past Surgical History: Section, Tubal Ligation Additional Past Surgical History / Comment(s): colonoscopies, R groin mole removed then resected d/t abnormal cells-bening. Past Anesthesia/Blood Transfusion Reactions: No Reported Reaction Past Psychological History: No Psychological Hx Reported Smoking Status: Never smoker Past Alcohol Use History: Rare Past Drug Use History: None Reported - Past Family History Father Family Medical History: Cancer Additional Family Medical History / Comment(s): COLON, MELANOMA ON HIS CHEST AND HE ALSO HAS BENIGN BRAIN TUMORS 2, diabetes, pancreatic cancer. FATHER IS 68 YRS OLD. Mother Family Medical History: Cancer, Dialysis Additional Family Medical History / Comment(s): MELANOMA THAT METASTASIZED TO THE BRAIN- FROM AT AGE 49 YRS. Mother had an MD at age 34 and history of diabetes. Patient has many aunts, uncles and nieces with diabetes on her mother's side. Brother(s) Additional Family Medical History / Comment(s): Patient has one half-brother and one full brother with no major medical problems. Patient has 1 sister with no major medical problems. Daughter(s) Additional Family Medical History / Comment(s): Patient has 2 daughters and her youngest daughter has history of seizure disorder. Patient has one son with no major medical problems. Medications and Allergies Home Medications Medication Instructions Recorded Confirmed Type Albuterol Inhaler [Ventolin Hfa 1 - 2 puff INHALATION RT-Q6H PRN 04/15/17 07/10/23 History Inhaler] Topiramate [Topiramate ER 200 mg PO DAILY 01/13/18 07/10/23 History (Sprinkle)] HYDROcodone/APAP 10-325MG [[place] 0.5 tab PO BID 01/14/18 07/10/23 History 10-325] Famotidine [Pepcid] 20 mg PO DAILY #30 tablet 07/14/18 07/10/23 Rx Biotin [Owfk-Ylpe-Qzyig] 20,000 mcg PO DAILY 03/26/23 07/10/23 History Cholecalciferol [Vitamin D3 (25 25 mcg PO HS 03/26/23 07/10/23 History Mcg = 1000 Iu)] Ibuprofen [Advil] 400 mg PO BID 03/26/23 07/10/23 History Loratadine [Claritin] 10 mg PO DAILY 03/26/23 07/10/23 History Rosuvastatin Calcium 40 mg PO DAILY 03/26/23 07/10/23 History Propranolol [Inderal] 20 mg PO DAILY 03/27/23 07/10/23 History Cyclobenzaprine [Flexeril] 10 mg PO HS 07/10/23 07/10/23 History Glucagon Emergency Kit 1 mg IM ONCE PRN 07/10/23 07/10/23 History INSULIN LISPRO (humaLOG) [humaLOG] See Protocol SQ AC-TID 07/10/23 07/10/23 History Insulin Detemir [Levemir Flexpen] 10 units SQ DAILY 07/10/23 07/10/23 History Naproxen [Naprosyn] 500 mg PO BID PRN 07/10/23 07/10/23 History Allergies Allergy/AdvReac Type Severity Reaction Status Date / Time codeine AdvReac Nausea & Verified 07/10/23 23:22 Vomiting Penicillins AdvReac Nausea & Verified 07/10/23 23:22 Vomiting Sulfa (Sulfonamide AdvReac Nausea & Verified 07/10/23 23:22 Antibiotics) Vomiting tramadol AdvReac Unknown Verified 07/10/23 23:22 Surgical - Exam Vital Signs Temp Pulse Resp BP Pulse Ox 97.9 F 126 H 18 119/65 98 07/10/23 19:50 07/10/23 19:50 07/10/23 19:50 07/10/23 19:50 07/10/23 19:50 Results - Labs 07/11/23 07:34 07/11/23 07:34 Abnormal Lab Results - Last 24 Hours (Table) 07/10/23 07/10/23 07/10/23 Range/Units 21:00 21:00 21:00 WBC 15.8 H (3.8-10.6) k/uL RBC (3.80-5.40) m/uL Hgb (11.4-16.0) gm/dL Hct (34.0-46.0) % Plt Count (150-450) k/uL Neutrophils # 14.5 H (1.3-7.7) k/uL Lymphocytes # 0.4 L (1.0-4.8) k/uL Sodium 131 L (137-145) mmol/L Chloride 95 L (98-107) mmol/L Carbon Dioxide 12 L (22-30) mmol/L BUN 27 H (7-17) mg/dL Creatinine 1.24 H (0.52-1.04) mg/dL Glucose 409 H (74-99) mg/dL POC Glucose (mg/dL) (70-110) mg/dL Calcium (8.4-10.2) mg/dL Total Protein (6.3-8.2) g/dL Albumin (3.5-5.0) g/dL Amylase <30 L (30-110) U/L Urine Appearance Slightly Cloudy H (Clear) Urine Protein 1+ H (Negative) Urine Glucose (UA) 4+ H (Negative) Urine Ketones 4+ H (Negative) Urine RBC >182 H (0-5) /hpf Urine WBC >182 H (0-5) /hpf Urine WBC Clumps Many H (None) /hpf Ur Squamous Epith Cells 16 H (0-4) /hpf Urine Bacteria Rare H (None) /hpf Urine Mucus Rare H (None) /hpf 07/11/23 07/11/23 07/11/23 Range/Units 07:34 07:34 07:46 WBC (3.8-10.6) k/uL RBC 3.18 L (3.80-5.40) m/uL Hgb 9.3 L D (11.4-16.0) gm/dL Hct 27.9 L (34.0-46.0) % Plt Count 122 L (150-450) k/uL Neutrophils # (1.3-7.7) k/uL Lymphocytes # (1.0-4.8) k/uL Sodium 133 L (137-145) mmol/L Chloride (98-107) mmol/L Carbon Dioxide 13 L (22-30) mmol/L BUN 33 H (7-17) mg/dL Creatinine 1.71 H (0.52-1.04) mg/dL Glucose 331 H (74-99) mg/dL POC Glucose (mg/dL) 334 H (70-110) mg/dL Calcium 8.3 L (8.4-10.2) mg/dL Total Protein 4.9 L (6.3-8.2) g/dL Albumin 2.5 L (3.5-5.0) g/dL Amylase (30-110) U/L Urine Appearance (Clear) Urine Protein (Negative) Urine Glucose (UA) (Negative) Urine Ketones (Negative) Urine RBC (0-5) /hpf Urine WBC (0-5) /hpf Urine WBC Clumps (None) /hpf Ur Squamous Epith Cells (0-4) /hpf Urine Bacteria (None) /hpf Urine Mucus (None) /hpf Diabetes panel 07/10/23 07/11/23 Range/Units 21:00 07:34 Sodium 131 L 133 L (137-145) mmol/L Potassium 4.9 4.0 (3.5-5.1) mmol/L Chloride 95 L 103 (98-107) mmol/L Carbon Dioxide 12 L 13 L (22-30) mmol/L BUN 27 H 33 H (7-17) mg/dL Creatinine 1.24 H 1.71 H (0.52-1.04) mg/dL Glucose 409 H 331 H (74-99) mg/dL Calcium 9.9 8.3 L (8.4-10.2) mg/dL AST 19 30 (14-36) U/L ALT 16 17 (4-34) U/L Alkaline Phosphatase 122 112 (38-126) U/L Total Protein 7.2 4.9 L (6.3-8.2) g/dL Albumin 4.0 2.5 L (3.5-5.0) g/dL Calcium panel 07/10/23 07/11/23 Range/Units 21:00 07:34 Calcium 9.9 8.3 L (8.4-10.2) mg/dL Phosphorus 3.1 (2.5-4.5) mg/dL Albumin 4.0 2.5 L (3.5-5.0) g/dL Pituitary panel 07/10/23 07/11/23 Range/Units 21:00 07:34 Sodium 131 L 133 L (137-145) mmol/L Potassium 4.9 4.0 (3.5-5.1) mmol/L Chloride 95 L 103 (98-107) mmol/L Carbon Dioxide 12 L 13 L (22-30) mmol/L BUN 27 H 33 H (7-17) mg/dL Creatinine 1.24 H 1.71 H (0.52-1.04) mg/dL Glucose 409 H 331 H (74-99) mg/dL Calcium 9.9 8.3 L (8.4-10.2) mg/dL Adrenal panel 07/10/23 07/11/23 Range/Units 21:00 07:34 Sodium 131 L 133 L (137-145) mmol/L Potassium 4.9 4.0 (3.5-5.1) mmol/L Chloride 95 L 103 (98-107) mmol/L Carbon Dioxide 12 L 13 L (22-30) mmol/L BUN 27 H 33 H (7-17) mg/dL Creatinine 1.24 H 1.71 H (0.52-1.04) mg/dL Glucose 409 H 331 H (74-99) mg/dL Calcium 9.9 8.3 L (8.4-10.2) mg/dL Total Bilirubin 0.6 0.3 (0.2-1.3) mg/dL AST 19 30 (14-36) U/L ALT 16 17 (4-34) U/L Alkaline Phosphatase 122 112 (38-126) U/L Total Protein 7.2 4.9 L (6.3-8.2) g/dL Albumin 4.0 2.5 L (3.5-5.0) g/dL
[2023-07-11] MEDS: SODIUM CHLORIDE 0.9% 1,000 ML IV SCH (11:39)
[2023-07-11 11:46] LABS: Glucose,Whole Blood 333 mg/dL (70-110)
[2023-07-11 11:52] LABS: Band Neutrophils % 22 %; Lymphocytes # (M) 0.06 k/uL (1.0-4.8); Metamyelocytes # (M) 0.19 k/uL (0); Metamyelocytes % 3 %; Monocytes # (M) 0.25 k/uL (0-1.0); Myelocytes # (M) 0.06 k/uL (0); Myelocytes % 1 %; Neutrophils % (M) 71 %; Nucleated Red Blood Cells 0 /100 WBC (0-0); Total Cells Counted 200; Toxic Vacuolation Present
[2023-07-11] MEDS ORDERED: ACETAMINOPHEN IV (For NPO) 1,000 MG in EMPTY BAG 1 BAG IVPB SCH (13:00)
[2023-07-11] MEDS ORDERED: PIPERACILLIN-TAZOBACTAM 3.375 GM in SODIUM CHLORIDE 0.9% 100 ML IVPB SCH (13:00)
[2023-07-11] MEDS ORDERED: SODIUM CHLORIDE 0.9% 1,000 ML IV ONE (13:09)
--- NOTE | 2023-07-11 13:37 | XR ---
EXAMINATION TYPE: XR chest 1V portable DATE OF EXAM: 07/11/2023 1:21 PM CLINICAL INDICATION:Female, 43 years old with history of chf; [facility] COMPARISON: Chest radiographs from 03/27/2023 TECHNIQUE: XR chest 1V portable Frontal view of the chest. FINDINGS: Lungs/Pleura: There is no evidence of pleural effusion, focal consolidation, or pneumothorax. Pulmonary vascularity: Unremarkable. Heart/mediastinum: Cardiomediastinal silhouette is unremarkable. Musculoskeletal: No acute osseous pathology. IMPRESSION: No acute cardiopulmonary disease/process.
--- NOTE | 2023-07-11 13:47 | HP ---
HISTORY AND PHYSICAL CHIEF COMPLAINT: Nausea, abdominal pain as well as coffee-grounds emesis. HISTORY OF PRESENT ILLNESS: This is a 43-year-old woman with a past medical history of multiple medical problems including a recent UTI with sepsis, complains of abdominal pain, nausea. The patient also has coffee-grounds emesis. The patient presented to hospital and hemoglobin was found to be 12.5 initially, but subsequently is 9.3. Surgery was consulted and recommended transfer to outside hospital for further GI evaluation. The patient is also running some fever. The patient has also relative hypotension also. There is no history of any headache, loss of consciousness at this time. A CAT scan of the abdomen pelvis was done on admission, which showed a 7 mm stone in the UPJ injection with mild right hydronephrosis. Some gas was noted also. PAST MEDICAL HISTORY: Include UTI with sepsis, ureteric stent, rest of the history and rest of the chart is also reviewed. HOME MEDICATIONS: Reviewed include Topamax, dose and rest of medications reviewed. ALLERGIES: Codeine, penicillin, rest of allergies noted. FAMILY HISTORY: History of colon cancer. SOCIAL HISTORY: No history of smoking or alcohol. REVIEW OF SYSTEMS: A 14-point review is negative except as mentioned earlier. PHYSICAL EXAMINATION: VITAL SIGNS: Pulse is 122, blood pressure 90/56, respirations 18. HEENT: Conjunctivae normal. NECK: No jugular venous distention. RESPIRATIONS: bases scattered rhonchi. ABDOMEN: Soft nontender. LEGS: No edema, no swelling. NERVOUS SYSTEM: No focal deficits. SKIN: No ulcer, rash, bleeding. JOINTS: No active deforming arthropathy. LABORATORY DATA: Hemoglobin 9.3. ASSESSMENT: 1. Vomiting and possible acute upper GI bleeding with acute blood loss anemia. 2. Possible UTI with sepsis. 3. History of asthma. 4. Diabetes mellitus, type 2. 5. History of DVT. 6. GI bleed. 7. History of seizure disorder history, grand mal seizures. RECOMMENDATIONS: This 43-year-old woman presented with multiple complex medical issues, we will monitor the patient closely. I would recommend to continue current management, continue symptomatic treatment. Monitor hemoglobin closely and as surgeons have recommended we will consult with tertiary care center for further transfer, recommend broad-spectrum IV antibiotics as well as consult Dr. Tolentino and the patient will need ICU transfer. We will consult Dr. Bradley also. Prognosis guarded. Further recommendations to follow. See orders for details. MMODL / IJN: [id number] /
--- NOTE | 2023-07-11 14:17 | P.DS ---
Providers Date of admission: 07/10/23 22:37 Expected date of discharge: 07/11/23 Attending physician: Paul Kumar Consults: 07/10/23 22:37 Consult Physician Routine Consulting Provider: Evelyn Craven Consult Reason/Comments: UGIB Do you want consulting provider notified?: Yes 07/11/23 13:02 Consult Physician Routine Consulting Provider: Tahmina Tolentino Consult Reason/Comments: sepsis Do you want consulting provider notified?: Yes 07/11/23 13:11 Consult Physician Urgent Consulting Provider: Danni Bradley Consult Reason/Comments: Need for ICU Do you want consulting provider notified?: Yes Primary care physician: [place] Hospital Course: Final diagnosis Vomiting, acute upper GI bleed with acute blood loss anemia Possible urinary tract infection with sepsis, present on admission History of asthma, not in exacerbation Diabetes mellitus, type II uncontrolled with hyperglycemia History of DVT maintained on anticoagulation Previous history of GI bleed History of diverticular disease History of seizure disorder Moderate protein calorie malnutrition with a BMI 21.4 GI prophylaxis DVT prophylaxis Full code Discharge disposition Patient is being transferred via ACLS in a stable condition with guarded prognosis to [facility] for GI services as there are no GI services here at [facility]. Patient has been accepted by Dr. Humphries at [facility] and will be transported via ACLS to ICU at [facility] for further GI services. Total time taken is greater than 35 minutes. Hospital course This is a 61-year-old female who was recently admitted with abdominal pain started having coffee-ground emesis last night and continues with left upper and lower quadrant tenderness and was evaluated by general surgery and given patient's drop in hemoglobin from 12.5 down to 9.3 today general surgery evaluated recommending transfer to [facility] for GI services as we have no GI services here. Patient will likely need an EGD and possible endo- clipping. Patient continues to have nausea and vomiting and coffee-ground emesis noted. Patient started developing fevers and is receiving IV Tylenol. Patient continues with hypotension receiving fluid boluses. Patient did have CT abdomen in the ER which showed a 7 mm stone at the UPJ with mild right hydronephrosis and there is some gas also noted within the collecting system. Patient did recently have stone extraction and stent placement on the right and did follow with urology outpatient. Patient has been accepted for transfer to ICU at [facility] today. Bed assignment was provided to nursing to give nursing and nursing staff report. Currently no reports of chest pain, shortness of breath, or palpitations. Patient is currently febrile at 103.2 and was just given IV Tylenol. Patient is currently nothing by mouth as she is continuing to have active hematemesis with coffee-ground emesis noted. Guarded prognosis. Physical exam: Gen: This is a 3-year-old female who is awake, alert and oriented 3, thin build, ill-appearing HEENT: Head is atraumatic, normocephalic. Pupils equal, round. Sclerae is an icteric. NECK: Supple. No JVD. No lymphadenopathy. No thyromegaly. LUNGS: Clear to auscultation. No wheezes or rhonchi. No intercostal retractions. HEART: Regular rate and rhythm. No murmur. ABDOMEN: Soft. Severe abdominal tenderness of the left upper lower left quadrants. Bowel sounds are present. No masses. EXTREMITIES: No pedal edema. No calf tenderness. NEUROLOGICAL: Patient is awake, alert and oriented x3. Cranial nerves 2 through 12 are grossly intact. Please refer to medication reconciliation sheet for a list of medications. The impression and plan of care has been dictated by Nicole Moncada, Nurse Practitioner as directed. Dr. José MD I have performed a history and examination and MDM of this patient, discussed the same with the dictator, and agree with the dictator's assessment and plan as written ,documented as a scribe. Based on total visit time, I have performed more than 50% of the visit. Patient Condition at Discharge: Fair Plan - Discharge Summary New Discharge Prescriptions: No Action Albuterol Inhaler [Ventolin Hfa Inhaler] 1 - 2 puff INHALATION RT-Q6H PRN PRN Reason: Shortness Of Breath Topiramate [Topiramate ER (Sprinkle)] 200 mg PO DAILY HYDROcodone/APAP 10-325MG [[place] 10-325] 0.5 tab PO BID Famotidine [Pepcid] 20 mg PO DAILY #30 tablet Loratadine [Claritin] 10 mg PO DAILY Ibuprofen [Advil] 400 mg PO BID Naproxen [Naprosyn] 500 mg PO BID PRN PRN Reason: Pain INSULIN LISPRO (humaLOG) [humaLOG] See Protocol SQ AC-TID Rosuvastatin Calcium 40 mg PO DAILY Biotin [Oyhk-Pqqu-Uzlbr] 20,000 mcg PO DAILY Cholecalciferol [Vitamin D3 (25 Mcg = 1000 Iu)] 25 mcg PO HS Propranolol [Inderal] 20 mg PO DAILY Cyclobenzaprine [Flexeril] 10 mg PO HS Insulin Detemir [Levemir Flexpen] 10 units SQ DAILY Glucagon Emergency Kit 1 mg IM ONCE PRN PRN Reason: Hypocalcemia Discharge Medication List Albuterol Inhaler [Ventolin Hfa Inhaler] 1 - 2 puff INHALATION RT-Q6H PRN 04/15/17 [History] Topiramate [Topiramate ER (Sprinkle)] 200 mg PO DAILY 01/13/18 [History] HYDROcodone/APAP 10-325MG [[place] 10-325] 0.5 tab PO BID 01/14/18 [History] Famotidine [Pepcid] 20 mg PO DAILY #30 tablet 07/14/18 [Rx] Biotin [Nsrk-Qpts-Ysxhb] 20,000 mcg PO DAILY 03/26/23 [History] Cholecalciferol [Vitamin D3 (25 Mcg = 1000 Iu)] 25 mcg PO HS 03/26/23 [History] Ibuprofen [Advil] 400 mg PO BID 03/26/23 [History] Loratadine [Claritin] 10 mg PO DAILY 03/26/23 [History] Rosuvastatin Calcium 40 mg PO DAILY 03/26/23 [History] Propranolol [Inderal] 20 mg PO DAILY 03/27/23 [History] Cyclobenzaprine [Flexeril] 10 mg PO HS 07/10/23 [History] Glucagon Emergency Kit 1 mg IM ONCE PRN 07/10/23 [History] INSULIN LISPRO (humaLOG) [humaLOG] See Protocol SQ AC-TID 07/10/23 [History] Insulin Detemir [Levemir Flexpen] 10 units SQ DAILY 07/10/23 [History] Naproxen [Naprosyn] 500 mg PO BID PRN 07/10/23 [History] Follow up Appointment(s)/Referral(s): Rivera Tripp DO [Primary Care Provider] - 1-2 days
[2023-07-11 15:03] VITALS: RESP 18
[2023-07-11 15:24] VITALS: PULSE 106
[2023-07-11 15:25] VITALS: BP 76/50; TEMP 98.5
[2023-07-11] MEDS ORDERED: CHOLECALCIFEROL 25 MCG (1000 IU) TABLET PO SCH (21:00)
[2023-07-11] MEDS ORDERED: CYCLOBENZAPRINE 10 MG TAB PO SCH (21:00)
[2023-07-11] MEDS ORDERED: HYDROcodone/APAP 10-325MG 1 EACH TAB PO SCH (21:00)
--- NOTE | 2023-07-11 22:36 | P.CONS ---
History of Present Illness - Reason for Consult Consult date: 07/11/23 Sepsis Requesting physician: Paul Kumar - Chief Complaint Left-sided abdominal pain x one day - History of Present Illness Patient is a 43-year-old female with a past medical history significant for diabetes mellitus asthma seizure disorder patient presenting to [facility] ER last night for evaluation of left-sided abdominal pain that apparently started a day or 2 before presentation the hospital pain has been mostly on the left flank to left lower abdominal area describing it to be sharp intensity almost 10 out of 10 with associated nausea but no vomiting but denies having any diarrhea last bowel movement was 2 days ago with the symptoms the patient was evaluated on presentation the hospital initially afebrile however patient did spike a fever of 103.2 did inform hide this morning the patient was tachycardic and hypertensive did have a white count of 15.8 with a left shift creatinine is 1.2 4 repeat is 1.71 liver enzymes are normal urine was positive patient did have a CT of abdominal pelvis which did shows 7 mm stone at the UPJ J junction with mild right-sided hydronephrosis there is gas within the left collecting system concerning for pyelonephritis patient initially received Rocephin subsequent antibiotic was switched over to Zosyn infectious disease was consulted for further management of antibiotic therapy patient apparently also have coffee-ground emesis for the patient has been evaluated by general surgery want the patient to be transferred out as no GI services available Review of Systems Positive point and negatives has been mentioned in the HPI, complete review of systems was performed and all other systems are negative Past Medical History Past Medical History: Asthma, Diabetes Mellitus, GI Bleed, Seizure Disorder Additional Past Medical History / Comment(s): NIDDM type II, [place] seizure once in 2017, lower GI bleed, mild diverticular dx, PCOS, bronchitis, pneumonia, migraines, allergic rhinitis. Kidney stones History of Any Multi-Drug Resistant Organisms: MRSA, None Reported Year Discovered:: 2011 MDRO Source:: Lungs Past Surgical History: Section, Tubal Ligation Additional Past Surgical History / Comment(s): colonoscopies, R groin mole removed then resected d/t abnormal cells-bening. Past Anesthesia/Blood Transfusion Reactions: No Reported Reaction Past Psychological History: No Psychological Hx Reported Smoking Status: Never smoker Past Alcohol Use History: Rare Past Drug Use History: None Reported - Past Family History Father Family Medical History: Cancer Additional Family Medical History / Comment(s): COLON, MELANOMA ON HIS CHEST AND HE ALSO HAS BENIGN BRAIN TUMORS 2, diabetes, pancreatic cancer. FATHER IS 68 YRS OLD. Mother Family Medical History: Cancer, Dialysis Additional Family Medical History / Comment(s): MELANOMA THAT METASTASIZED TO THE BRAIN- FROM AT AGE 49 YRS. Mother had an OR at age 34 and history of diabetes. Patient has many aunts, uncles and nieces with diabetes on her mother's side. Brother(s) Additional Family Medical History / Comment(s): Patient has one half-brother and one full brother with no major medical problems. Patient has 1 sister with no major medical problems. Daughter(s) Additional Family Medical History / Comment(s): Patient has 2 daughters and her youngest daughter has history of seizure disorder. Patient has one son with no major medical problems. Medications and Allergies Home Medications Medication Instructions Recorded Confirmed Type Albuterol Inhaler [Ventolin Hfa 1 - 2 puff INHALATION RT-Q6H PRN 04/15/17 07/10/23 History Inhaler] Topiramate [Topiramate ER 200 mg PO DAILY 01/13/18 07/10/23 History (Sprinkle)] HYDROcodone/APAP 10-325MG [[place] 0.5 tab PO BID 01/14/18 07/10/23 History 10-325] Famotidine [Pepcid] 20 mg PO DAILY #30 tablet 07/14/18 07/10/23 Rx Biotin [Nmnt-Wxmv-Yfria] 20,000 mcg PO DAILY 03/26/23 07/10/23 History Cholecalciferol [Vitamin D3 (25 25 mcg PO HS 03/26/23 07/10/23 History Mcg = 1000 Iu)] Ibuprofen [Advil] 400 mg PO BID 03/26/23 07/10/23 History Loratadine [Claritin] 10 mg PO DAILY 03/26/23 07/10/23 History Rosuvastatin Calcium 40 mg PO DAILY 03/26/23 07/10/23 History Propranolol [Inderal] 20 mg PO DAILY 03/27/23 07/10/23 History Cyclobenzaprine [Flexeril] 10 mg PO HS 07/10/23 07/10/23 History Glucagon Emergency Kit 1 mg IM ONCE PRN 07/10/23 07/10/23 History INSULIN LISPRO (humaLOG) [humaLOG] See Protocol SQ AC-TID 07/10/23 07/10/23 History Insulin Detemir [Levemir Flexpen] 10 units SQ DAILY 07/10/23 07/10/23 History Naproxen [Naprosyn] 500 mg PO BID PRN 07/10/23 07/10/23 History Allergies Allergy/AdvReac Type Severity Reaction Status Date / Time codeine AdvReac Nausea & Verified 07/10/23 23:22 Vomiting Penicillins AdvReac Nausea & Verified 07/10/23 23:22 Vomiting Sulfa (Sulfonamide AdvReac Nausea & Verified 07/10/23 23:22 Antibiotics) Vomiting tramadol AdvReac Unknown Verified 07/10/23 23:22 Physical Exam Vitals: Vital Signs Temp Pulse Resp BP Pulse Ox 07/11/23 15:16 106 H 18 76/50 95 07/11/23 15:03 105 H 17 78/48 95 07/11/23 14:45 108 H 18 78/48 95 07/11/23 14:30 109 H 16 77/49 95 07/11/23 14:15 99.2 F 114 H 17 80/46 96 07/11/23 14:00 109 H 17 79/48 94 L 07/11/23 13:45 107 H 16 82/52 93 L 07/11/23 13:31 101.1 F H 123 H 20 78/51 94 L 07/11/23 13:00 123 H 17 80/49 95 07/11/23 12:32 122 H 18 91/57 95 07/11/23 11:55 103.5 F H 07/11/23 11:52 103.2 F H 07/11/23 11:32 137 H 18 115/81 96 07/11/23 11:15 98.4 F 07/11/23 11:09 147 H 20 116/62 96 07/11/23 10:57 134 H 20 104/84 95 07/11/23 10:30 128 H 20 117/70 95 07/11/23 10:00 123 H 17 90/60 93 L 07/11/23 09:30 94/69 07/11/23 09:05 114 H 16 80/55 93 L 07/11/23 08:30 74/53 07/11/23 08:00 112 H 88/61 93 L 07/11/23 07:31 77/57 07/11/23 07:10 74/54 95 07/11/23 07:04 99.1 F 110 H 16 96/55 95 07/10/23 23:00 98 18 138/80 100 07/10/23 19:50 97.9 F 126 H 18 119/65 98 GENERAL DESCRIPTION: Middle-aged female lying in bed, no distress. No tachypnea or accessory muscle of respiration use. HEENT: Shows Pallor , no scleral icterus. Oral mucous membrane is dry. No pharyngeal erythema or thrush NECK: Trachea central, no thyromegaly. LUNGS: Unlabored breathing. Clear to auscultation anteriorly. No wheeze or crackle. HEART: S1, S2, regular rate and rhythm. No loud murmur ABDOMEN: Soft, left-sided tenderness , no guarding or rigidity EXTREMITIES: No edema of feet. SKIN: No rash, no masses palpable. NEUROLOGICAL: The patient is awake, alert, oriented x3, mood and affect normal. Results CBC & Chem 7: 07/11/23 07:34 07/11/23 07:34 Labs: Abnormal Lab Results - Last 24 Hours (Table) 07/10/23 07/10/23 07/10/23 Range/Units 21:00 21:00 21:00 WBC 15.8 H (3.8-10.6) k/uL RBC (3.80-5.40) m/uL Hgb (11.4-16.0) gm/dL Hct (34.0-46.0) % Plt Count (150-450) k/uL Neutrophils # 14.5 H (1.3-7.7) k/uL Lymphocytes # 0.4 L (1.0-4.8) k/uL Lymphocytes # (Manual) (1.0-4.8) k/uL Metamyelocytes # (Man) (0) k/uL Myelocytes # (Manual) (0) k/uL Sodium 131 L (137-145) mmol/L Chloride 95 L (98-107) mmol/L Carbon Dioxide 12 L (22-30) mmol/L BUN 27 H (7-17) mg/dL Creatinine 1.24 H (0.52-1.04) mg/dL Glucose 409 H (74-99) mg/dL POC Glucose (mg/dL) (70-110) mg/dL Calcium (8.4-10.2) mg/dL Total Protein (6.3-8.2) g/dL Albumin (3.5-5.0) g/dL Amylase <30 L (30-110) U/L Urine Appearance Slightly Cloudy H (Clear) Urine Protein 1+ H (Negative) Urine Glucose (UA) 4+ H (Negative) Urine Ketones 4+ H (Negative) Urine RBC >182 H (0-5) /hpf Urine WBC >182 H (0-5) /hpf Urine WBC Clumps Many H (None) /hpf Ur Squamous Epith Cells 16 H (0-4) /hpf Urine Bacteria Rare H (None) /hpf Urine Mucus Rare H (None) /hpf 07/11/23 07/11/23 07/11/23 Range/Units 07:34 07:34 07:46 WBC (3.8-10.6) k/uL RBC 3.18 L (3.80-5.40) m/uL Hgb 9.3 L D (11.4-16.0) gm/dL Hct 27.9 L (34.0-46.0) % Plt Count 122 L (150-450) k/uL Neutrophils # (1.3-7.7) k/uL Lymphocytes # (1.0-4.8) k/uL Lymphocytes # (Manual) 0.06 L (1.0-4.8) k/uL Metamyelocytes # (Man) 0.19 H (0) k/uL Myelocytes # (Manual) 0.06 H (0) k/uL Sodium 133 L (137-145) mmol/L Chloride (98-107) mmol/L Carbon Dioxide 13 L (22-30) mmol/L BUN 33 H (7-17) mg/dL Creatinine 1.71 H (0.52-1.04) mg/dL Glucose 331 H (74-99) mg/dL POC Glucose (mg/dL) 334 H (70-110) mg/dL Calcium 8.3 L (8.4-10.2) mg/dL Total Protein 4.9 L (6.3-8.2) g/dL Albumin 2.5 L (3.5-5.0) g/dL Amylase (30-110) U/L Urine Appearance (Clear) Urine Protein (Negative) Urine Glucose (UA) (Negative) Urine Ketones (Negative) Urine RBC (0-5) /hpf Urine WBC (0-5) /hpf Urine WBC Clumps (None) /hpf Ur Squamous Epith Cells (0-4) /hpf Urine Bacteria (None) /hpf Urine Mucus (None) /hpf 07/11/23 Range/Units 11:42 WBC (3.8-10.6) k/uL RBC (3.80-5.40) m/uL Hgb (11.4-16.0) gm/dL Hct (34.0-46.0) % Plt Count (150-450) k/uL Neutrophils # (1.3-7.7) k/uL Lymphocytes # (1.0-4.8) k/uL Lymphocytes # (Manual) (1.0-4.8) k/uL Metamyelocytes # (Man) (0) k/uL Myelocytes # (Manual) (0) k/uL Sodium (137-145) mmol/L Chloride (98-107) mmol/L Carbon Dioxide (22-30) mmol/L BUN (7-17) mg/dL Creatinine (0.52-1.04) mg/dL Glucose (74-99) mg/dL POC Glucose (mg/dL) 333 H (70-110) mg/dL Calcium (8.4-10.2) mg/dL Total Protein (6.3-8.2) g/dL Albumin (3.5-5.0) g/dL Amylase (30-110) U/L Urine Appearance (Clear) Urine Protein (Negative) Urine Glucose (UA) (Negative) Urine Ketones (Negative) Urine RBC (0-5) /hpf Urine WBC (0-5) /hpf Urine WBC Clumps (None) /hpf Ur Squamous Epith Cells (0-4) /hpf Urine Bacteria (None) /hpf Urine Mucus (None) /hpf Assessment and Plan (1) Sepsis due to urinary tract infection Status: Acute Code(s): A41.9 - SEPSIS, UNSPECIFIED ORGANISM; N39.0 - URINARY TRACT INFECTION, SITE NOT SPECIFIED SNOMED Code(s): 180996053 Plan: 1patient with sepsis in this patient with a fever elevated white count source is likely complicated UTI in this patient with evidence of right ureteral stone and right-sided hydronephrosis and concern for possible gas-forming bacteria 2-patient is broadly covered with the Zosyn 3.375 g every 8 hours , which will be continued till the patient was evaluated by urology and ID service at [facility] Plan of care was discussed with the SPECIFICATION WRITER for admitting team working on discharge/transfer Thank you for this consultation Time with Patient: Greater than 30
[2023-07-12] MEDS ORDERED: TOPIRAMATE 100 MG TAB PO SCH (09:00)
[2023-07-12] MEDS ORDERED: NON FORMULARY DRUG (Biotin [Hair-Skin-Nails] 10,000 MCG Tab.Chew) PO SCH (09:00)
== END 2023-07-11 15:26 | disposition short-term general hospital (02) | DRG 720 ==
LOC: EC 19:26 → 4SSUR 22:37
PROVIDERS: ADMIT Hospitalist; ATTEND Hospitalist
DX: A41.9 Sepsis, unspecified organism (principal); D62 Acute posthemorrhagic anemia; E11.65 Type 2 diabetes mellitus with hyperglycemia; G40.409 Other generalized epilepsy and epileptic syndromes, not intractable, without status epilepticus; K92.0 Hematemesis; E44.0 Moderate protein-calorie malnutrition; J45.909 Unspecified asthma, uncomplicated; N13.6 Pyonephrosis; N20.2 Calculus of kidney with calculus of ureter; I95.9 Hypotension, unspecified; N17.9 Acute kidney failure, unspecified; Z79.4 Long term (current) use of insulin; Z68.21 Body mass index [BMI] 21.0-21.9, adult; K57.90 Diverticulosis of intestine, part unspecified, without perforation or abscess without bleeding; Z87.01 Personal history of pneumonia (recurrent); Z79.899 Other long term (current) drug therapy; Z82.0 Family history of epilepsy and other diseases of the nervous system; Z82.49 Family history of ischemic heart disease and other diseases of the circulatory system; Z83.3 Family history of diabetes mellitus; Z86.718 Personal history of other venous thrombosis and embolism; Z87.11 Personal history of peptic ulcer disease; Z87.442 Personal history of urinary calculi; Z79.1 Long term (current) use of non-steroidal anti-inflammatories (NSAID); Z79.891 Long term (current) use of opiate analgesic; Z86.14 Personal history of Methicillin resistant Staphylococcus aureus infection
CPT/HCPCS: 36415; 71045; 74177; 80053; 81001; 81025; 82150; 82271; 83605; 83690; 83735; 84100; 84484; 85025; 87040; 87077; 87186; 96361; 96365; 96366; 96367; 96375; 96376; 99291

== ENCOUNTER 2023-07-25 17:37 | Inpatient (IN) | payer OTHER ==
[2023-07-25 17:49] LABS: Glucose,Whole Blood 359 mg/dL (70-110)
[2023-07-25 18:25] LABS: ALT 26 U/L (4-34); AST 20 U/L (14-36); African American GFR (CKD) >90 (>60 ml/min/1.73 sqM); Alkaline Phosphatase 142 U/L (38-126); Anion Gap 15 mmol/L; Blood Urea Nitrogen 13 mg/dL (7-17); Calcium 10.3 mg/dL (8.4-10.2); Carbon Dioxide 19 mmol/L (22-30); Chloride 100 mmol/L (98-107); Glucose 340 mg/dL (74-99); Non-African American GFR(CKD) >90 (>60 ml/min/1.73 sqM); Potassium 4.4 mmol/L (3.5-5.1); Sodium 134 mmol/L (137-145); Total Bilirubin 0.5 mg/dL (0.2-1.3); Total Protein 7.8 g/dL (6.3-8.2)
[2023-07-25 18:29] LABS: Basophils % (A) 0 %; Eosinophils # (A) 0.1 k/uL (0-0.7); Eosinophils % (A) 1 %; HCT 30.7 % (34.0-46.0); HGB 9.8 gm/dL (11.4-16.0); Lymphocytes # (A) 0.8 k/uL (1.0-4.8); Lymphocytes % (A) 12 %; MCH 27.4 pg (25.0-35.0); MCHC 31.9 g/dL (31.0-37.0); Mean Platelet Volume 7.8; Monocytes # (A) 0.5 k/uL (0-1.0); Monocytes % (A) 8 %; Neutrophils # (A) 5.2 k/uL (1.3-7.7); Neutrophils % (A) 76 %; Platelet Count 339 k/uL (150-450); RBC 3.56 m/uL (3.80-5.40); RDW 15.1 % (11.5-15.5); WBC 6.8 k/uL (3.8-10.6)
[2023-07-25] MEDS ORDERED: SODIUM CHLORIDE 0.9% 1,000 ML IV ONE ×2 (20:09→22:39)
[2023-07-25] MEDS ORDERED: PANTOPRAZOLE 40 MG/10 ML VIAL IVP STA (20:09)
[2023-07-25] MEDS ORDERED: MORPHINE SULFATE 4 MG/ML SYRINGE IVP STA (20:09)
[2023-07-25] MEDS ORDERED: ONDANSETRON 4 MG/2 ML VIAL IVP STA (20:09)
[2023-07-25] MEDS ORDERED: INSULIN REGULAR 100 UNIT/ML VIAL (IV) IV ONE (20:16)
--- NOTE | 2023-07-25 20:38 | ED ---
General Adult HPI - General Chief complaint: Nausea/Vomiting/Diarrhea Stated complaint: Vomiting Time Seen by Provider: 07/25/23 19:55 Source: patient Mode of arrival: ambulatory Limitations: no limitations - History of Present Illness Initial comments: 43-year-old female presenting with chief complaint of nausea vomiting and abdominal pain. Patient was recently admitted to our facility on 07/10 with urosepsis and stone as well as suspected upper GI bleeding. Patient has history of gastric ulcers due to prolonged NSAID use. Patient was transferred to [facility] because we did not have GI services. She states that she underwent a scope, she does not believe that any interventions were performed. She was started on Protonix. Septic stone was removed and patient was sent home on ceftriaxone. Today the patient has been unable to keep down any foods or liquids. She has been unable to keep down her medications as well. She admits to epigastric pain. No coffee ground emesis or dark tarry stool. No chest pain or difficulty breathing. - Related Data Home Medications Medication Instructions Recorded Confirmed Albuterol Inhaler [Ventolin Hfa 1 - 2 puff INHALATION RT-Q6H PRN 04/15/17 07/25/23 Inhaler] HYDROcodone/APAP 10-325MG [[place] 1 tab PO Q6H PRN 01/14/18 07/25/23 10-325] Biotin [Ogpi-Rueh-Bdvav] 20,000 mcg PO DAILY 03/26/23 07/25/23 Cholecalciferol [Vitamin D3 (25 25 mcg PO HS 03/26/23 07/25/23 Mcg = 1000 Iu)] Ibuprofen [Advil] 400 mg PO BID PRN 03/26/23 07/25/23 Loratadine [Claritin] 10 mg PO DAILY 03/26/23 07/25/23 Rosuvastatin Calcium 40 mg PO DAILY 03/26/23 07/25/23 Propranolol [Inderal] 20 mg PO DAILY 03/27/23 07/25/23 Cyclobenzaprine [Flexeril] 10 mg PO HS 07/10/23 07/25/23 Glucagon Emergency Kit 1 mg IM ONCE PRN 07/10/23 07/25/23 INSULIN LISPRO (humaLOG) [humaLOG] See Protocol SQ AC-TID 07/10/23 07/25/23 Insulin Detemir [Levemir Flexpen] 24 units SQ DAILY 07/10/23 07/25/23 Naproxen [Naprosyn] 500 mg PO BID PRN 07/10/23 07/25/23 Famotidine [Pepcid] 20 mg PO BID PRN 07/25/23 07/25/23 Naloxone HCl [Narcan] 4 mg NASAL ONCE PRN 07/25/23 07/25/23 Ondansetron Odt [Zofran Odt] 4 mg PO TID PRN 07/25/23 07/25/23 Pantoprazole [Protonix] 40 mg PO AC-BID 07/25/23 07/25/23 Tamsulosin [Flomax] 0.4 mg PO DAILY 07/25/23 07/25/23 Topiramate [Topamax] 100 mg PO BID 07/25/23 07/25/23 cefTRIAXone [Rocephin] 1 gm IVPB DAILY 07/25/23 07/25/23 oxyBUTYnin chloride [Ditropan] 5 mg PO BID PRN 07/25/23 07/25/23 Allergies Allergy/AdvReac Type Severity Reaction Status Date / Time codeine AdvReac Nausea & Verified 07/25/23 21:21 Vomiting Penicillins AdvReac Nausea & Verified 07/25/23 21:21 Vomiting Sulfa (Sulfonamide AdvReac Nausea & Verified 07/25/23 21:21 Antibiotics) Vomiting tramadol AdvReac Unknown Verified 07/25/23 21:21 Review of Systems ROS Statement: Those systems with pertinent positive or pertinent negative responses have been documented in the HPI. ROS Other: All systems not noted in ROS Statement are negative. Past Medical History Past Medical History: Asthma, Diabetes Mellitus, GI Bleed, Seizure Disorder Additional Past Medical History / Comment(s): NIDDM type II, [place] seizure once in 2017, lower GI bleed, mild diverticular dx, PCOS, bronchitis, pneumonia, migraines, allergic rhinitis. Kidney stones History of Any Multi-Drug Resistant Organisms: MRSA, None Reported Date of last positivie culture/infection: 2011 MDRO Source:: Lungs Past Surgical History: Section, Tubal Ligation Additional Past Surgical History / Comment(s): colonoscopies, R groin mole removed then resected d/t abnormal cells-bening. Past Anesthesia/Blood Transfusion Reactions: No Reported Reaction Past Psychological History: No Psychological Hx Reported Smoking Status: Never smoker Past Alcohol Use History: Rare Past Drug Use History: None Reported - Past Family History Father Family Medical History: Cancer Additional Family Medical History / Comment(s): COLON, MELANOMA ON HIS CHEST AND HE ALSO HAS BENIGN BRAIN TUMORS 2, diabetes, pancreatic cancer. FATHER IS 68 YRS OLD. Mother Family Medical History: Cancer, Dialysis Additional Family Medical History / Comment(s): MELANOMA THAT METASTASIZED TO THE BRAIN- FROM AT AGE 49 YRS. Mother had an ID at age 34 and history of diabetes. Patient has many aunts, uncles and nieces with diabetes on her mother's side. Brother(s) Additional Family Medical History / Comment(s): Patient has one half-brother and one full brother with no major medical problems. Patient has 1 sister with no major medical problems. Daughter(s) Additional Family Medical History / Comment(s): Patient has 2 daughters and her youngest daughter has history of seizure disorder. Patient has one son with no major medical problems. General Exam Limitations: no limitations General appearance: alert, in no apparent distress Head exam: Present: atraumatic, normocephalic, normal inspection Eye exam: Present: normal appearance, EOMI Neck exam: Present: normal inspection, full ROM Respiratory exam: Present: normal lung sounds bilaterally. Absent: respiratory distress, wheezes, rales, rhonchi, stridor Cardiovascular Exam: Present: regular rate, normal rhythm, normal heart sounds. Absent: systolic murmur, diastolic murmur, rubs, gallop, clicks GI/Abdominal exam: Present: soft. Absent: distended, tenderness, guarding, rebound, rigid Neurological exam: Present: alert, oriented X3 Psychiatric exam: Present: normal affect, normal mood Skin exam: Present: warm, dry, intact, normal color. Absent: rash Course Vital Signs 07/25/23 07/25/23 07/25/23 17:39 22:53 23:58 Temperature 97.3 F L 98.1 F Pulse Rate 121 H 106 H 106 H Respiratory 18 16 18 Rate Blood Pressure 165/103 167/100 153/102 O2 Sat by Pulse 98 97 97 Oximetry 07/26/23 07/26/23 07/26/23 00:00 01:11 03:31 Temperature Pulse Rate 109 H 109 H 110 H Respiratory 18 18 18 Rate Blood Pressure 162/98 157/101 143/94 O2 Sat by Pulse 97 97 97 Oximetry EKG Findings - EKG Comments: EKG Findings:: Sinus tachycardia with short DC interval. Ventricular rate 104. DC interval 119. QRS 75. QT 360. QTc 420. Right axis deviation. No ST-T deviation. Medical Decision Making - Medical Decision Making Was pt. sent in by a medical professional or institution (, PA, PROOF SORTER, urgent care, hospital, or detention...) When possible be specific @ -No Did you speak to anyone other than the patient for history (EMS, parent, family, police, friend...)? What history was obtained from this source @ -No Did you review nursing and triage notes (agree or disagree)? Why? @ -I reviewed and agree with nursing and triage notes Were old charts reviewed (outside hosp., previous admission, EMS record, old EKG, old radiological studies, urgent care reports/EKG's, detention records)? Report findings @ -No old charts were reviewed Differential Diagnosis (chest pain, altered mental status, abdominal pain women, abdominal pain men, vaginal bleeding, weakness, fever, dyspnea, syncope, headache, dizziness, GI bleed, back pain, seizure, CVA, palpatations, mental health, musculoskeletal)? @ -MDM Differential Abdominal Pain Women: Appendicitis, Cholecystitis, diverticulosis, ischemic bowel, pancreatitis, h epatitis, UTI, gastroenteritis, AAA, incarcerated hernia, bowel obstruction, constipation, inflammatory bowel, hepatitis, peptic ulcer disease, splenic infarction, perforated viscus, vulvitis, ovarian torsion, PID, kidney stone, placenta abruption... This is not meant to be an all-inclusive list EKG interpreted by me (3pts min.). @ -As above X-rays interpreted by me (1pt min.). @ -None done CT interpreted by me (1pt min.). @ -CT of the abdomen and pelvis shows No significant acute finding is seen to account for patient's clinical symptoms U/S interpreted by me (1pt. min.). @ -None done What testing was considered but not performed or refused? (CT, X-rays, U/S, labs)? Why? @ -None What meds were considered but not given or refused? Why? @ -None Did you discuss the management of the patient with other professionals (professionals i.e. , PA, PROOF SORTER, lab, RT, psych nurse, clinical social worker, general sales manager, teacher, airfield services officer, case management manager)? Give summary @ -My attending spoke with Dr. Ayala who accepted admission Was smoking cessation discussed for >3mins.? @ -No Was critical care preformed (if so, how long)? @ -No Were there social determinants of health that impacted care today? How? (Homelessness, low income, unemployed, alcoholism, drug addiction, transportation, low edu. Level, literacy, decrease access to med. care, fci, rehab)? @ -No Was there de-escalation of care discussed even if they declined (Discuss DNR or withdrawal of care, Hospice)? DNR status @ -No What co-morbidities impacted this encounter? (DM, HTN, Smoking, COPD, CAD, Cancer, CVA, ARF, Chemo, Hep., AIDS, mental health diagnosis, sleep apnea, morbid obesity)? @ -None Was patient admitted / discharged? Hospital course, mention meds given and route, prescriptions, significant lab abnormalities, going to OR and other pertinent info. @ -43-year-old female presenting with chief complaint of epigastric pain with nausea and vomiting. History and physical exam were conducted. Hemoglobin 9.8, which is stable from previous value. Lipase 803. Glucose 340. Anion gap 15 carbon dioxide 19. Urine shows moderate leukocytes with 6 RBCs and 24 WBCs, patient is currently on Rocephin at home for recent septic kidney stone. Positive acetone, likely secondary to vomiting. Urine only shows trace ketones. I do not believe this patient is in DKA. Patient will be admitted and treated for pancreatitis. Negative CT of the abdomen and pelvis. Patient is agreeable with this plan. I discussed this case with my attending Dr. Mccracken Undiagnosed new problem with uncertain prognosis? @ -No Drug Therapy requiring intensive monitoring for toxicity (Heparin, Nitro, Insu oseas, Cardizem)? @ -No Were any procedures done? @ -No Diagnosis/symptom? @ -Pancreatitis Acute, or Chronic, or Acute on Chronic? @ -Acute Uncomplicated (without systemic symptoms) or Complicated (systemic symptoms)? @ -Complicated Side effects of treatment? @ -No Exacerbation, Progression, or Severe Exacerbation? @ -No Poses a threat to life or bodily function? How? (Chest pain, USA, ID, pneumonia, PE, COPD, DKA, ARF, appy, cholecystitis, CVA, Diverticulitis, Homicidal, Suicidal, threat to staff... and all critical care pts) @ -yes - Lab Data Result diagrams: 07/25/23 18:04 07/25/23 18:04 Lab Results 07/25/23 07/25/23 07/25/23 Range/Units 17:47 18:04 18:04 WBC 6.8 (3.8-10.6) k/uL RBC 3.56 L (3.80-5.40) m/uL Hgb 9.8 L (11.4-16.0) gm/dL Hct 30.7 L (34.0-46.0) % MCV 86.0 (80.0-100.0) fL MCH 27.4 (25.0-35.0) pg MCHC 31.9 (31.0-37.0) g/dL RDW 15.1 (11.5-15.5) % Plt Count 339 D (150-450) k/uL MPV 7.8 Neutrophils % 76 % Lymphocytes % 12 % Monocytes % 8 % Eosinophils % 1 % Basophils % 0 % Neutrophils # 5.2 (1.3-7.7) k/uL Lymphocytes # 0.8 L (1.0-4.8) k/uL Monocytes # 0.5 (0-1.0) k/uL Eosinophils # 0.1 (0-0.7) k/uL Basophils # 0.0 (0-0.2) k/uL Sodium 134 L (137-145) mmol/L Potassium 4.4 (3.5-5.1) mmol/L Chloride 100 (98-107) mmol/L Carbon Dioxide 19 L (22-30) mmol/L Anion Gap 15 mmol/L BUN 13 (7-17) mg/dL Creatinine 0.71 (0.52-1.04) mg/dL Est GFR (CKD-EPI)AfAm >90 (>60 ml/min/1.73 sqM) Est GFR (CKD-EPI)NonAf >90 (>60 ml/min/1.73 sqM) Glucose 340 H (74-99) mg/dL POC Glucose (mg/dL) 359 H (70-110) mg/dL POC Glu Gas Transfer Operator ID Willing, Kori Calcium 10.3 H (8.4-10.2) mg/dL Phosphorus (2.5-4.5) mg/dL Magnesium (1.6-2.3) mg/dL Total Bilirubin 0.5 (0.2-1.3) mg/dL AST 20 (14-36) U/L ALT 26 (4-34) U/L Alkaline Phosphatase 142 H (38-126) U/L Ammonia (<30) umol/L Total Protein 7.8 (6.3-8.2) g/dL Albumin 4.0 (3.5-5.0) g/dL Lipase (23-300) U/L Urine Color Urine Appearance (Clear) Urine pH (5.0-8.0) Ur Specific [place] (1.001-1.035) Urine Protein (Negative) Urine Glucose (UA) (Negative) Urine Ketones (Negative) Urine Blood (Negative) Urine Nitrite (Negative) Urine Bilirubin (Negative) Urine Urobilinogen (<2.0) mg/dL Ur Leukocyte Esterase (Negative) Urine RBC (0-5) /hpf Urine WBC (0-5) /hpf Ur Squamous Epith Cells (0-4) /hpf Urine Bacteria (None) /hpf Acetone, Qual (Negative) 07/25/23 07/25/23 07/25/23 Range/Units 18:04 20:45 22:12 WBC (3.8-10.6) k/uL RBC (3.80-5.40) m/uL Hgb (11.4-16.0) gm/dL Hct (34.0-46.0) % MCV (80.0-100.0) fL MCH (25.0-35.0) pg MCHC (31.0-37.0) g/dL RDW (11.5-15.5) % Plt Count (150-450) k/uL MPV Neutrophils % % Lymphocytes % % Monocytes % % Eosinophils % % Basophils % % Neutrophils # (1.3-7.7) k/uL Lymphocytes # (1.0-4.8) k/uL Monocytes # (0-1.0) k/uL Eosinophils # (0-0.7) k/uL Basophils # (0-0.2) k/uL Sodium (137-145) mmol/L Potassium (3.5-5.1) mmol/L Chloride (98-107) mmol/L Carbon Dioxide (22-30) mmol/L Anion Gap mmol/L BUN (7-17) mg/dL Creatinine (0.52-1.04) mg/dL Est GFR (CKD-EPI)AfAm (>60 ml/min/1.73 sqM) Est GFR (CKD-EPI)NonAf (>60 ml/min/1.73 sqM) Glucose (74-99) mg/dL POC Glucose (mg/dL) 291 H (70-110) mg/dL POC Glu Gas Transfer Operator ID Matthew Santos Calcium (8.4-10.2) mg/dL Phosphorus (2.5-4.5) mg/dL Magnesium (1.6-2.3) mg/dL Total Bilirubin (0.2-1.3) mg/dL AST (14-36) U/L ALT (4-34) U/L Alkaline Phosphatase (38-126) U/L Ammonia (<30) umol/L Total Protein (6.3-8.2) g/dL Albumin (3.5-5.0) g/dL Lipase (23-300) U/L Urine Color Colorless Urine Appearance Clear (Clear) Urine pH 7.0 (5.0-8.0) Ur Specific [place] 1.013 (1.001-1.035) Urine Protein Trace H (Negative) Urine Glucose (UA) 4+ H (Negative) Urine Ketones Trace H (Negative) Urine Blood Negative (Negative) Urine Nitrite Negative (Negative) Urine Bilirubin Negative (Negative) Urine Urobilinogen <2.0 (<2.0) mg/dL Ur Leukocyte Esterase Moderate H (Negative) Urine RBC 6 H (0-5) /hpf Urine WBC 24 H (0-5) /hpf Ur Squamous Epith Cells 3 (0-4) /hpf Urine Bacteria Rare H (None) /hpf Acetone, Qual Positive (Negative) 07/25/23 07/25/23 Range/Units 22:33 22:33 WBC (3.8-10.6) k/uL RBC (3.80-5.40) m/uL Hgb (11.4-16.0) gm/dL Hct (34.0-46.0) % MCV (80.0-100.0) fL MCH (25.0-35.0) pg MCHC (31.0-37.0) g/dL RDW (11.5-15.5) % Plt Count (150-450) k/uL MPV Neutrophils % % Lymphocytes % % Monocytes % % Eosinophils % % Basophils % % Neutrophils # (1.3-7.7) k/uL Lymphocytes # (1.0-4.8) k/uL Monocytes # (0-1.0) k/uL Eosinophils # (0-0.7) k/uL Basophils # (0-0.2) k/uL Sodium (137-145) mmol/L Potassium (3.5-5.1) mmol/L Chloride (98-107) mmol/L Carbon Dioxide (22-30) mmol/L Anion Gap mmol/L BUN (7-17) mg/dL Creatinine (0.52-1.04) mg/dL Est GFR (CKD-EPI)AfAm (>60 ml/min/1.73 sqM) Est GFR (CKD-EPI)NonAf (>60 ml/min/1.73 sqM) Glucose (74-99) mg/dL POC Glucose (mg/dL) (70-110) mg/dL POC Glu Gas Transfer Operator ID Calcium (8.4-10.2) mg/dL Phosphorus 3.7 (2.5-4.5) mg/dL Magnesium 1.6 (1.6-2.3) mg/dL Total Bilirubin (0.2-1.3) mg/dL AST (14-36) U/L ALT (4-34) U/L Alkaline Phosphatase (38-126) U/L Ammonia <9 (<30) umol/L Total Protein (6.3-8.2) g/dL Albumin (3.5-5.0) g/dL Lipase 803 H (23-300) U/L Urine Color Urine Appearance (Clear) Urine pH (5.0-8.0) Ur Specific [place] (1.001-1.035) Urine Protein (Negative) Urine Glucose (UA) (Negative) Urine Ketones (Negative) Urine Blood (Negative) Urine Nitrite (Negative) Urine Bilirubin (Negative) Urine Urobilinogen (<2.0) mg/dL Ur Leukocyte Esterase (Negative) Urine RBC (0-5) /hpf Urine WBC (0-5) /hpf Ur Squamous Epith Cells (0-4) /hpf Urine Bacteria (None) /hpf Acetone, Qual (Negative) Disposition Clinical Impression: Acute pancreatitis Disposition: ADMITTED IP TO THIS HOSP Condition: Stable Time of Disposition: 00:39
[2023-07-25 21:18] LABS: Appearance,Urine Clear (Clear); Bacteria,Urine Rare /hpf; Bilirubin,Urine Negative (Negative); Blood,Urine Negative (Negative); Color,Urine Colorless; Glucose,Urine (UA) 4+ (Negative); Ketones,Urine Trace (Negative); Leukocyte Esterase,Urine Moderate (Negative); Nitrite,Urine Negative (Negative); Protein,Urine Trace (Negative); RBC,Urine 6 /hpf (0-5); Specific Gravity,Urine 1.013 (1.001-1.035); Squamous Epithelial Cell,Urine 3 /hpf (0-4); Urobilinogen,Urine <2.0 mg/dL (<2.0); WBC,Urine 24 /hpf (0-5)
[2023-07-25] MEDS ORDERED: HYDROmorphone 0.5 MG/0.5 ML SYRINGE IVP STA (21:33)
--- NOTE | 2023-07-25 21:59 | CT ---
EXAMINATION TYPE: CT abdomen pelvis w con DATE OF EXAM: 07/25/2023 HISTORY: abdominal pain, seen recently at [facility] for kidney problems. GFR >90 CT DLP: 633.5mGycm Automated Exposure Control for Dose Reduction was Utilized. CONTRAST: CT scan of the abdomen and pelvis is performed with IV Contrast, patient injected with 100 cc mL of Isovue 300. COMPARISON: 07/10/2023 FINDINGS: LUNG BASES: No significant abnormality is appreciated. LIVER/GB: No significant abnormality is appreciated. PANCREAS: No significant abnormality is seen. SPLEEN: No significant abnormality is seen. ADRENALS: No significant abnormality is seen. KIDNEYS: Double pigtail left ureteral stent in adequate placement. No left or right-sided hydronephro sis or hydroureter. BOWEL: No bowel dilation. No focal inflammatory change. Mildly excessive pancolonic stool volume not ed. UTERUS/[place]: No gross abnormality seen. LYMPH NODES: No greater than 1cm abdominal or pelvic lymph nodes are appreciated. OSSEOUS STRUCTURES: No significant abnormality is seen. VASCULAR: No acute findings. IMPRESSION: No significant acute finding is seen to account for patient's clinical symptoms.
[2023-07-25 22:13] LABS: Glucose,Whole Blood 291 mg/dL (70-110)
[2023-07-25 22:52] LABS: Magnesium 1.6 mg/dL (1.6-2.3); Phosphorus 3.7 mg/dL (2.5-4.5)
[2023-07-25] MEDS: SODIUM CHLORIDE 0.9% 1,000 ML IV SCH (22:52)
[2023-07-25] MEDS ORDERED: METOCLOPRAMIDE 5 MG/ML 2 ML VIAL IVP STA (23:19)
[2023-07-26] MEDS ORDERED: DEXTROSE 50% SYRINGE 50 ML IVP PRN ×2 (00:12)
[2023-07-26] MEDS ORDERED: NALOXONE 0.4 MG/ML 1 ML VIAL IV PRN (01:20)
[2023-07-26 02:15] LABS: Glucose,Whole Blood 298 mg/dL (70-110)
[2023-07-26] MEDS: HYDROmorphone 1 MG/ML 1 ML SYRINGE IVP PRN ×5 (03:28→21:48)
[2023-07-26] MEDS: SODIUM CHLORIDE 0.9% 1,000 ML IV SCH ×2 (06:43→15:30)
[2023-07-26 06:51] LABS: Glucose,Whole Blood 267 mg/dL (70-110)
[2023-07-26 08:30] LABS: Glucose,Whole Blood 277 mg/dL (70-110)
[2023-07-26] MEDS: ONDANSETRON 4 MG/2 ML VIAL IVP PRN ×2 (08:47→14:09)
[2023-07-26] MEDS: INSULIN ASPART (NovoLOG) 100 UNIT/ML VIAL SQ SCH ×4 (08:47→21:17)
[2023-07-26] MEDS: KETOROLAC 15 MG/ML 1 ML VIAL IVP PRN ×2 (08:48→16:14)
[2023-07-26] MEDS: PANTOPRAZOLE 40 MG/10 ML VIAL IVP SCH ×2 (08:48→21:17)
[2023-07-26] MEDS ORDERED: ALBUTEROL HFA INHALER INHALATION PRN (12:23)
[2023-07-26] MEDS ORDERED: cefTRIAXone 1 GM VIAL IVPB SCH (12:30)
[2023-07-26 14:28] LABS: Glucose,Whole Blood 233 mg/dL (70-110)
[2023-07-26 17:25] LABS: Glucose,Whole Blood 256 mg/dL (70-110)
--- NOTE | 2023-07-26 18:29 | P.HPIM ---
History of Present Illness H&P Date: 07/26/23 Chief Complaint: Nausea/vomiting/abdominal pain 43-year-old female presenting with chief complaint of nausea vomiting and abdominal pain. Patient was recently admitted to our facility on 07/10 with urosepsis and stone as well as suspected upper GI bleeding. Patient has history of gastric ulcers due to prolonged NSAID use. Patient was transferred to [facility] because we did not have GI services. She states that she underwent a scope, she does not believe that any interventions were performed. She was started on Protonix. Septic stone was removed and patient was sent home on ceftriaxone. Today the patient has been unable to keep down any foods or liquids. She has been unable to keep down her medications as well. She admits to epigastric pain. No coffee ground emesis or dark tarry stool. No chest pain or difficulty breathing. Hemoglobin 9.8, which is stable from previous value. Lipase 803. Glucose 340. Anion gap 15 carbon dioxide 19. Urine shows moderate leukocytes with 6 RBCs and 24 WBCs, patient is currently on Rocephin at home for recent septic kidney stone. Positive acetone, likely secondary to vomiting. Urine only shows trace ketones. Patient will be admitted and treated for pancreatitis. Negative CT of the abdomen and pelvis. Review of Systems REVIEW OF SYSTEMS: CONSTITUTIONAL: No fever, no malaise, no fatigue. HEENT: No recent visual problems or hearing problems. Denied any sore throat. CARDIOVASCULAR: No chest pain, orthopnea, PND, no palpitations, no syncope. PULMONARY: No shortness of breath, no cough, no hemoptysis. GASTROINTESTINAL: No diarrhea, no nausea, no vomiting, no abdominal pain. NEUROLOGICAL: No headaches, no weakness, no numbness. HEMATOLOGICAL: Denies any bleeding or petechiae. GENITOURINARY: Denies any burning micturition, frequency, or urgency. MUSCULOSKELETAL/RHEUMATOLOGICAL: Denies any joint pain, swelling, or any muscle pain. ENDOCRINE: Denies any polyuria or polydipsia. The rest of the 14-point review of systems is negative. Past Medical History Past Medical History: Asthma, Diabetes Mellitus, GI Bleed, Seizure Disorder Additional Past Medical History / Comment(s): NIDDM type II, grand mall seizure once in 2017, lower GI bleed, mild diverticular dx, PCOS, bronchitis, pneumonia, migraines, allergic rhinitis. Kidney stones History of Any Multi-Drug Resistant Organisms: MRSA, None Reported Date of last positivie culture/infection: 2011 MDRO Source:: Lungs Past Surgical History: Section, Tubal Ligation Additional Past Surgical History / Comment(s): colonoscopies, R groin mole removed then resected d/t abnormal cells-bening. Past Anesthesia/Blood Transfusion Reactions: No Reported Reaction Past Psychological History: No Psychological Hx Reported Additional Psychological History / Comment(s): Pt resides with her 2 children. Pt is independent. She drives. Smoking Status: Never smoker Past Alcohol Use History: Rare Additional Past Alcohol Use History / Comment(s): Patient is a lifelong nonsmoker. She denies any marijuana or street drug use. She drink alcohol rarely. She lives at home and has 3 children under the age of 19. She is a single parent. Past Drug Use History: None Reported - Past Family History Father Family Medical History: Cancer Additional Family Medical History / Comment(s): COLON, MELANOMA ON HIS CHEST AND HE ALSO HAS BENIGN BRAIN TUMORS 2, diabetes, pancreatic cancer. FATHER IS 68 YRS OLD. Mother Family Medical History: Cancer, Dialysis Additional Family Medical History / Comment(s): MELANOMA THAT METASTASIZED TO THE BRAIN- FROM AT AGE 49 YRS. Mother had an [place] at age 34 and history of diabetes. Patient has many aunts, uncles and nieces with diabetes on her mother's side. Brother(s) Additional Family Medical History / Comment(s): Patient has one half-brother and one full brother with no major medical problems. Patient has 1 sister with no major medical problems. Daughter(s) Additional Family Medical History / Comment(s): Patient has 2 daughters and her youngest daughter has history of seizure disorder. Patient has one son with no major medical problems. Medications and Allergies Home Medications Medication Instructions Recorded Confirmed Type Albuterol Inhaler [Ventolin Hfa 1 - 2 puff INHALATION RT-Q6H PRN 04/15/17 07/25/23 History Inhaler] HYDROcodone/APAP 10-325MG [[place] 1 tab PO Q6H PRN 01/14/18 07/25/23 History 10-325] Biotin [Mztt-Sxne-Wzudw] 20,000 mcg PO DAILY 03/26/23 07/25/23 History Cholecalciferol [Vitamin D3 (25 25 mcg PO HS 03/26/23 07/25/23 History Mcg = 1000 Iu)] Ibuprofen [Advil] 400 mg PO BID PRN 03/26/23 07/25/23 History Loratadine [Claritin] 10 mg PO DAILY 03/26/23 07/25/23 History Rosuvastatin Calcium 40 mg PO DAILY 03/26/23 07/25/23 History Propranolol [Inderal] 20 mg PO DAILY 03/27/23 07/25/23 History Cyclobenzaprine [Flexeril] 10 mg PO HS 07/10/23 07/25/23 History Glucagon Emergency Kit 1 mg IM ONCE PRN 07/10/23 07/25/23 History INSULIN LISPRO (humaLOG) [humaLOG] See Protocol SQ AC-TID 07/10/23 07/25/23 History Insulin Detemir [Levemir Flexpen] 24 units SQ DAILY 07/10/23 07/25/23 History Naproxen [Naprosyn] 500 mg PO BID PRN 07/10/23 07/25/23 History Famotidine [Pepcid] 20 mg PO BID PRN 07/25/23 07/25/23 History Naloxone HCl [Narcan] 4 mg NASAL ONCE PRN 07/25/23 07/25/23 History Ondansetron Odt [Zofran Odt] 4 mg PO TID PRN 07/25/23 07/25/23 History Pantoprazole [Protonix] 40 mg PO AC-BID 07/25/23 07/25/23 History Tamsulosin [Flomax] 0.4 mg PO DAILY 07/25/23 07/25/23 History Topiramate [Topamax] 100 mg PO BID 07/25/23 07/25/23 History cefTRIAXone [Rocephin] 1 gm IVPB DAILY 07/25/23 07/25/23 History oxyBUTYnin chloride [Ditropan] 5 mg PO BID PRN 07/25/23 07/25/23 History Allergies Allergy/AdvReac Type Severity Reaction Status Date / Time codeine AdvReac Nausea & Verified 07/25/23 21:21 Vomiting Penicillins AdvReac Nausea & Verified 07/25/23 21:21 Vomiting Sulfa (Sulfonamide AdvReac Nausea & Verified 07/25/23 21:21 Antibiotics) Vomiting tramadol AdvReac Unknown Verified 07/25/23 21:21 Physical Exam Vitals: Vital Signs Temp Pulse Pulse Resp BP BP Pulse Ox 07/26/23 07:00 97.8 F 117 H 18 168/95 98 07/26/23 06:52 104 H 16 130/88 98 07/26/23 06:09 16 130/88 99 07/26/23 05:50 104 H 16 122/83 98 07/26/23 03:31 110 H 18 143/94 97 07/26/23 01:11 109 H 18 157/101 97 07/26/23 00:00 109 H 18 162/98 97 07/25/23 23:58 98.1 F 106 H 18 153/102 97 07/25/23 22:53 106 H 16 167/100 97 07/25/23 17:39 97.3 F L 121 H 18 165/103 98 Intake and Output 07/25/23 07/26/23 07/26/23 22:59 06:59 14:59 Other: Weight 53.07 kg 53.07 kg - Constitutional General appearance: Present: average body habitus, cooperative, no acute distress - EENT Eyes: Present: anicteric sclerae, EOMI, PERRLA, normal appearance ENT: Present: hearing grossly normal, normal oropharynx Ears: bilateral: normal - Neck Neck: Present: normal ROM. Absent: lymphadenopathy, rigidity, thyromegaly Carotids: negative: bruit present Thyroid: bilateral: normal size, negative: enlarged, nodule - Respiratory Respiratory: bilateral: CTA, negative: rales, rhonchi, wheezing - Cardiovascular Rhythm: regular Heart sounds: normal: S1, S2 Abnormal Heart Sounds: Absent: systolic murmur, diastolic murmur - Gastrointestinal General gastrointestinal: Present: normal bowel sounds, soft. Absent: distended, organomegaly, tenderness - Genitourinary Genitourinary Comment(s): deferred - Integumentary Integumentary: Present: normal turgor. Absent: jaundiced, rash, ulcer - Neurologic Neurologic: Present: CNII-XII intact. Absent: focal deficits - Musculoskeletal Musculoskeletal: Present: gait normal, strength equal bilaterally - Psychiatric Psychiatric: Present: A&O x's 3, appropriate affect, intact judgment & insight Results CBC & Chem 7: 07/25/23 18:04 11/09/23 18:04 Labs: Abnormal Lab Results - Last 24 Hours (Table) 07/25/23 07/25/23 07/25/23 Range/Units 17:47 18:04 18:04 RBC 3.56 L (3.80-5.40) m/uL Hgb 9.8 L (11.4-16.0) gm/dL Hct 30.7 L (34.0-46.0) % Lymphocytes # 0.8 L (1.0-4.8) k/uL Sodium 134 L (137-145) mmol/L Carbon Dioxide 19 L (22-30) mmol/L Glucose 340 H (74-99) mg/dL POC Glucose (mg/dL) 359 H (70-110) mg/dL Calcium 10.3 H (8.4-10.2) mg/dL Alkaline Phosphatase 142 H (38-126) U/L Lipase (23-300) U/L Urine Protein (Negative) Urine Glucose (UA) (Negative) Urine Ketones (Negative) Ur Leukocyte Esterase (Negative) Urine RBC (0-5) /hpf Urine WBC (0-5) /hpf Urine Bacteria (None) /hpf 07/25/23 07/25/23 07/25/23 Range/Units 20:45 22:12 22:33 RBC (3.80-5.40) m/uL Hgb (11.4-16.0) gm/dL Hct (34.0-46.0) % Lymphocytes # (1.0-4.8) k/uL Sodium (137-145) mmol/L Carbon Dioxide (22-30) mmol/L Glucose (74-99) mg/dL POC Glucose (mg/dL) 291 H (70-110) mg/dL Calcium (8.4-10.2) mg/dL Alkaline Phosphatase (38-126) U/L Lipase 803 H (23-300) U/L Urine Protein Trace H (Negative) Urine Glucose (UA) 4+ H (Negative) Urine Ketones Trace H (Negative) Ur Leukocyte Esterase Moderate H (Negative) Urine RBC 6 H (0-5) /hpf Urine WBC 24 H (0-5) /hpf Urine Bacteria Rare H (None) /hpf 07/26/23 07/26/23 07/26/23 Range/Units 02:12 06:50 08:29 RBC (3.80-5.40) m/uL Hgb (11.4-16.0) gm/dL Hct (34.0-46.0) % Lymphocytes # (1.0-4.8) k/uL Sodium (137-145) mmol/L Carbon Dioxide (22-30) mmol/L Glucose (74-99) mg/dL POC Glucose (mg/dL) 298 H 267 H 277 H (70-110) mg/dL Calcium (8.4-10.2) mg/dL Alkaline Phosphatase (38-126) U/L Lipase (23-300) U/L Urine Protein (Negative) Urine Glucose (UA) (Negative) Urine Ketones (Negative) Ur Leukocyte Esterase (Negative) Urine RBC (0-5) /hpf Urine WBC (0-5) /hpf Urine Bacteria (None) /hpf Assessment and Plan Assessment: 1. Acute pancreatitis -Patient has been kept nothing by mouth; IV fluid hydration normal saline at a rate of 1 30 mL an hour; Protonix 40 mg IV every 12 hours -Continue pain control with IV Dilaudid when necessary 2. Septic kidney stone; remains on Rocephin 1 g IV daily; Flomax to 0.4 mg daily 3. Anemia; history of GI bleed; history of diverticulosis; no active bleeding; hemoglobin at baseline 4. Seizure disorder; Topamax 100 mg twice a day 5. Diabetes mellitus with long-term insulin use; Levemir 24 units subcu daily which will be placed on hold while patient is nothing by mouth 6. Asthma; not in exacerbation; continue with home inhaler therapy; Claritin 10 mg daily 7. Hyperlipidemia; rosuvastatin 40 mg daily 8. Hypertension; propranolol 20 mg daily DVT prophylaxis; SCDs CODE STATUS;
[2023-07-26 20:36] LABS: Glucose,Whole Blood 216 mg/dL (70-110)
[2023-07-26] MEDS: TOPIRAMATE 100 MG TAB PO SCH (21:17)
[2023-07-26] MEDS: TRIMETHOBENZAMIDE 100 MG/ML 2 ML VIAL IM PRN (21:49)
[2023-07-27] MEDS: ONDANSETRON 4 MG/2 ML VIAL IVP PRN ×4 (02:16→22:53)
[2023-07-27] MEDS: HYDROmorphone 1 MG/ML 1 ML SYRINGE IVP PRN ×3 (02:16→10:32)
[2023-07-27] MEDS: SODIUM CHLORIDE 0.9% 1,000 ML IV SCH ×3 (02:20→09:57)
[2023-07-27 06:11] LABS: Glucose,Whole Blood 180 mg/dL (70-110)
[2023-07-27] MEDS: INSULIN ASPART (NovoLOG) 100 UNIT/ML VIAL SQ SCH ×4 (06:28→22:00)
[2023-07-27] MEDS: TRIMETHOBENZAMIDE 100 MG/ML 2 ML VIAL IM PRN (06:47)
[2023-07-27] MEDS: TAMSULOSIN 0.4 MG CAP.ER.24H PO SCH (09:43)
[2023-07-27] MEDS: PANTOPRAZOLE 40 MG/10 ML VIAL IVP SCH ×2 (09:43→21:45)
[2023-07-27] MEDS: TOPIRAMATE 100 MG TAB PO SCH ×2 (09:43→21:45)
[2023-07-27] MEDS: PROPRANOLOL 20 MG TAB PO SCH (09:43)
[2023-07-27 11:09] LABS: Basophils # (A) 0.06 X 10*3/uL (0.00-0.10); Eosinophils # (A) 0.05 X 10*3/uL (0.04-0.35); Eosinophils % (A) 0.8 %; HCT 26.4 % (37.2-46.3); HGB 8.3 g/dL (12.0-15.0); Lymphocytes # (A) 1.19 X 10*3/uL (0.90-5.00); Lymphocytes % (A) 19.1 %; MCH 27.6 pg (27.0-32.0); MCHC 31.4 g/dL (32.0-37.0); MCV 87.7 FL (80.0-97.0); Mean Platelet Volume 9.9 FL (9.5-12.2); Monocytes # (A) 0.82 X 10*3/uL (0.20-1.00); Monocytes % (A) 13.2 %; NRBC Per 100 WBC 0 X 10*3/uL (0.00-0.01); Neutrophils # (A) 4.09 X 10*3/uL (1.80-7.70); Neutrophils % (A) 65.7 %; Platelet Count 374 X 10*3/uL (140-440); RBC 3.01 X 10*6/uL (4.10-5.20); RDW 14.8 % (11.5-14.5); WBC 6.22 X 10*3/uL (4.50-10.00)
[2023-07-27 11:35] LABS: Glucose,Whole Blood 198 mg/dL (70-110)
[2023-07-27 11:49] LABS: BUN/Creat Ratio 17.62 Ratio (12.00-20.00); Blood Urea Nitrogen 14.1 mg/dL (9.0-27.0); Calcium 9.7 mg/dL (8.7-10.3); Carbon Dioxide 20.5 mmol/L (21.6-31.8); Chloride 108 mmol/L (96-109); Glucose 179 mg/dL (70-110); Lipase 56 U/L (14-63); Potassium 3.7 mmol/L (3.5-5.5); Sodium 141 mmol/L (135-145)
[2023-07-27] MEDS: HYDROmorphone 0.5 MG/0.5 ML SYRINGE IVP PRN ×2 (16:55→22:53)
[2023-07-27 17:24] LABS: Glucose,Whole Blood 223 mg/dL (70-110)
--- NOTE | 2023-07-27 18:39 | P.PN ---
Subjective Progress Note Date: 07/27/23 43-year-old female presenting with chief complaint of nausea vomiting and abdominal pain. Patient was recently admitted to our facility on 07/10 with urosepsis and stone as well as suspected upper GI bleeding. Patient has history of gastric ulcers due to prolonged NSAID use. Patient was transferred to [facility] because we did not have GI services. She states that she underwent a scope, she does not believe that any interventions were performed. She was started on Protonix. Septic stone was removed and patient was sent home on ceftriaxone. Today the patient has been unable to keep down any foods or liquids. She has been unable to keep down her medications as well. She admits to epigastric pain. No coffee ground emesis or dark tarry stool. No chest pain or difficulty breathing. Hemoglobin 9.8, which is stable from previous value. Lipase 803. Glucose 340. Anion gap 15 carbon dioxide 19. Urine shows moderate leukocytes with 6 RBCs and 24 WBCs, patient is currently on Rocephin at home for recent septic kidney stone. Positive acetone, likely secondary to vomiting. Urine only shows trace ketones. Patient will be admitted and treated for pancreatitis. Negative CT of the abdomen and pelvis. -- Patient continues to complain of persistent nausea; has been taking Dilaudid 1 mg every 4 hours [id number] -- Lipase is within normal limits - We will back off on IV pain medications and change Dilaudid to 0.5 mg every 6 hours when necessary; start patient on a full liquid diet and advance as tolerated Objective - Vital Signs Vital signs: Vital Signs Temp 98.1 F 07/27/23 07:15 Pulse 102 H 07/27/23 07:15 Resp 16 07/27/23 07:15 BP 161/91 07/27/23 07:15 Pulse Ox 99 07/27/23 02:00 FiO2 Intake & Output 07/26/23 07/27/23 07/27/23 18:59 06:59 18:59 Weight 53.07 kg Other: Voiding Method Toilet # Voids 2 3 - Exam - Constitutional General appearance: Present: average body habitus, cooperative, no acute distress - EENT Eyes: Present: anicteric sclerae, EOMI, PERRLA, normal appearance ENT: Present: hearing grossly normal, normal oropharynx Ears: bilateral: normal - Neck Neck: Present: normal ROM. Absent: lymphadenopathy, rigidity, thyromegaly Carotids: negative: bruit present Thyroid: bilateral: normal size, negative: enlarged, nodule - Respiratory Respiratory: bilateral: CTA, negative: rales, rhonchi, wheezing - Cardiovascular Rhythm: regular Heart sounds: normal: S1, S2 Abnormal Heart Sounds: Absent: systolic murmur, diastolic murmur - Gastrointestinal General gastrointestinal: Present: normal bowel sounds, soft. Absent: distended, organomegaly, tenderness - Genitourinary Genitourinary Comment(s): deferred - Integumentary Integumentary: Present: normal turgor. Absent: jaundiced, rash, ulcer - Neurologic Neurologic: Present: CNII-XII intact. Absent: focal deficits - Musculoskeletal Musculoskeletal: Present: gait normal, strength equal bilaterally - Psychiatric Psychiatric: Present: A&O x's 3, appropriate affect, intact judgment & insight - Labs CBC & Chem 7: 07/27/23 04:16 07/27/23 04:16 Labs: Abnormal Lab Results - Last 24 Hours (Table) 07/26/23 07/26/23 07/26/23 Range/Units 14:26 17:24 20:34 RBC (4.10-5.20) X 10*6/uL Hgb (12.0-15.0) g/dL Hct (37.2-46.3) % MCHC (32.0-37.0) g/dL RDW (11.5-14.5) % Carbon Dioxide (21.6-31.8) mmol/L Anion Gap (4.00-12.00) mmol/L Glucose (70-110) mg/dL POC Glucose (mg/dL) 233 H 256 H 216 H (70-110) mg/dL 07/27/23 07/27/23 07/27/23 Range/Units 04:16 04:16 06:10 RBC 3.01 L (4.10-5.20) X 10*6/uL Hgb 8.3 L (12.0-15.0) g/dL Hct 26.4 L (37.2-46.3) % MCHC 31.4 L (32.0-37.0) g/dL RDW 14.8 H (11.5-14.5) % Carbon Dioxide 20.5 L (21.6-31.8) mmol/L Anion Gap 12.50 H (4.00-12.00) mmol/L Glucose 179 H (70-110) mg/dL POC Glucose (mg/dL) 180 H (70-110) mg/dL 07/27/23 Range/Units 11:34 RBC (4.10-5.20) X 10*6/uL Hgb (12.0-15.0) g/dL Hct (37.2-46.3) % MCHC (32.0-37.0) g/dL RDW (11.5-14.5) % Carbon Dioxide (21.6-31.8) mmol/L Anion Gap (4.00-12.00) mmol/L Glucose (70-110) mg/dL POC Glucose (mg/dL) 198 H (70-110) mg/dL Assessment and Plan Assessment: 1. Acute pancreatitis -Patient has been kept nothing by mouth; IV fluid hydration normal saline at a rate of 1 30 mL an hour; Protonix 40 mg IV every 12 hours -Continue pain control with IV Dilaudid when necessary 2. Septic kidney stone; remains on Rocephin 1 g IV daily; Flomax to 0.4 [address] 3. Anemia; history of GI bleed; history of diverticulosis; no active bleeding; hemoglobin at baseline 4. Seizure disorder; Topamax 100 mg twice a day 5. Diabetes mellitus with long-term insulin use; Levemir 24 units subcu daily which will be placed on hold while patient is nothing by mouth 6. Asthma; not in exacerbation; continue with home inhaler therapy; Claritin 10 mg daily 7. Hyperlipidemia; rosuvastatin 40 mg daily 8. Hypertension; propranolol 20 mg daily DVT prophylaxis; SCDs CODE STATUS;
[2023-07-27 20:26] LABS: Glucose,Whole Blood 207 mg/dL (70-110)
[2023-07-28] MEDS: TRIMETHOBENZAMIDE 100 MG/ML 2 ML VIAL IM PRN (02:51)
[2023-07-28] MEDS: SODIUM CHLORIDE 0.9% 1,000 ML IV SCH ×4 (02:54→18:49)
[2023-07-28] MEDS: ONDANSETRON 4 MG/2 ML VIAL IVP PRN ×3 (05:00→16:56)
[2023-07-28] MEDS: HYDROmorphone 0.5 MG/0.5 ML SYRINGE IVP PRN ×3 (05:01→20:11)
[2023-07-28 06:19] LABS: Glucose,Whole Blood 182 mg/dL (70-110)
[2023-07-28] MEDS: INSULIN ASPART (NovoLOG) 100 UNIT/ML VIAL SQ SCH ×4 (06:40→21:54)
[2023-07-28] MEDS: TAMSULOSIN 0.4 MG CAP.ER.24H PO SCH (08:39)
[2023-07-28] MEDS: PANTOPRAZOLE 40 MG/10 ML VIAL IVP SCH ×2 (08:39→20:11)
[2023-07-28] MEDS: TOPIRAMATE 100 MG TAB PO SCH ×2 (08:39→20:12)
[2023-07-28] MEDS: PROPRANOLOL 20 MG TAB PO SCH (08:39)
[2023-07-28 10:15] LABS: Basophils # (A) 0.08 X 10*3/uL (0.00-0.10); Basophils % (A) 1.5 %; Blood Urea Nitrogen 11.1 mg/dL (9.0-27.0); Calcium 9.4 mg/dL (8.7-10.3); Carbon Dioxide 18.2 mmol/L (21.6-31.8); Chloride 107 mmol/L (96-109); Eosinophils # (A) 0.09 X 10*3/uL (0.04-0.35); Eosinophils % (A) 1.7 %; Glucose 170 mg/dL (70-110); HCT 27.4 % (37.2-46.3); HGB 8.8 g/dL (12.0-15.0); Lymphocytes # (A) 0.98 X 10*3/uL (0.90-5.00); Lymphocytes % (A) 18.6 %; MCH 28.2 pg (27.0-32.0); MCHC 32.1 g/dL (32.0-37.0); MCV 87.8 FL (80.0-97.0); Mean Platelet Volume 9.7 FL (9.5-12.2); Monocytes # (A) 0.62 X 10*3/uL (0.20-1.00); Monocytes % (A) 11.8 %; NRBC Per 100 WBC 0 X 10*3/uL (0.00-0.01); Neutrophils # (A) 3.49 X 10*3/uL (1.80-7.70); Neutrophils % (A) 66.2 %; Platelet Count 365 X 10*3/uL (140-440); Potassium 3.3 mmol/L (3.5-5.5); RBC 3.12 X 10*6/uL (4.10-5.20); RDW 14.7 % (11.5-14.5); Sodium 142 mmol/L (135-145); WBC 5.27 X 10*3/uL (4.50-10.00)
--- NOTE | 2023-07-28 12:16 | P.GSCN ---
History of Present Illness Consult date: 07/28/23 History of present illness: Patient re-admitted following recent transfer and treatment at [facility] over 1 week ago treated for acute UGI bleed and kidney stones. She reports stopping NSAIDS. She is scheduled to follow up with Infectious disease provider at [facility]. She returns to the hospital with acute onset epigastric and atypical chest pain in the setting of acute gastric bleeding ulcers. CT reviewed without acute findings. With history of acute GI bleed and abdominal pain, recommend repeat upper endoscopy. Hospital medications reviewed with re-start of NSAIDS toradol and now discontinued by me. Care plan discussed with patient and agrees. Past Medical History Past Medical History: Asthma, Diabetes Mellitus, GI Bleed, Seizure Disorder Additional Past Medical History / Comment(s): NIDDM type II, grand mall seizure once in 2017, lower GI bleed, mild diverticular dx, PCOS, bronchitis, pneumonia, migraines, allergic rhinitis. Kidney stones History of Any Multi-Drug Resistant Organisms: MRSA, None Reported Year Discovered:: 2011 MDRO Source:: Lungs Past Surgical History: Section, Tubal Ligation Additional Past Surgical History / Comment(s): colonoscopies, R groin mole removed then resected d/t abnormal cells-bening. Past Anesthesia/Blood Transfusion Reactions: No Reported Reaction Past Psychological History: No Psychological Hx Reported Additional Psychological History / Comment(s): Pt resides with her 2 children. Pt is independent. She drives. Smoking Status: Never smoker Past Alcohol Use History: Rare Additional Past Alcohol Use History / Comment(s): Patient is a lifelong nonsmoker. She denies any marijuana or street drug use. She drink alcohol rarely. She lives at home and has 3 children under the age of 19. She is a single parent. Past Drug Use History: None Reported - Past Family History Father Family Medical History: Cancer Additional Family Medical History / Comment(s): COLON, MELANOMA ON HIS CHEST AND HE ALSO HAS BENIGN BRAIN TUMORS 2, diabetes, pancreatic cancer. FATHER IS 68 YRS OLD. Mother Family Medical History: Cancer, Dialysis Additional Family Medical History / Comment(s): MELANOMA THAT METASTASIZED TO THE BRAIN- FROM AT AGE 49 YRS. Mother had an [place] at age 34 and history of diabetes. Patient has many aunts, uncles and nieces with diabetes on her mother's side. Brother(s) Additional Family Medical History / Comment(s): Patient has one half-brother and one full brother with no major medical problems. Patient has 1 sister with no major medical problems. Daughter(s) Additional Family Medical History / Comment(s): Patient has 2 daughters and her youngest daughter has history of seizure disorder. Patient has one son with no major medical problems. Medications and Allergies Home Medications Medication Instructions Recorded Confirmed Type Albuterol Inhaler [Ventolin Hfa 1 - 2 puff INHALATION RT-Q6H PRN 04/15/17 07/25/23 History Inhaler] HYDROcodone/APAP 10-325MG [[place] 1 tab PO Q6H PRN 01/14/18 07/25/23 History 10-325] Biotin [Sbcj-Luwo-Iwhyk] 20,000 mcg PO DAILY 03/26/23 07/25/23 History Cholecalciferol [Vitamin D3 (25 25 mcg PO HS 03/26/23 07/25/23 History Mcg = 1000 Iu)] Ibuprofen [Advil] 400 mg PO BID PRN 03/26/23 07/25/23 History Loratadine [Claritin] 10 mg PO DAILY 03/26/23 07/25/23 History Rosuvastatin Calcium 40 mg PO DAILY 03/26/23 07/25/23 History Propranolol [Inderal] 20 mg PO DAILY 03/27/23 07/25/23 History Cyclobenzaprine [Flexeril] 10 mg PO HS 07/10/23 07/25/23 History Glucagon Emergency Kit 1 mg IM ONCE PRN 07/10/23 07/25/23 History INSULIN LISPRO (humaLOG) [humaLOG] See Protocol SQ AC-TID 07/10/23 07/25/23 History Insulin Detemir [Levemir Flexpen] 24 units SQ DAILY 07/10/23 07/25/23 History Naproxen [Naprosyn] 500 mg PO BID PRN 07/10/23 07/25/23 History Famotidine [Pepcid] 20 mg PO BID PRN 07/25/23 07/25/23 History Naloxone HCl [Narcan] 4 mg NASAL ONCE PRN 07/25/23 07/25/23 History Ondansetron Odt [Zofran Odt] 4 mg PO TID PRN 07/25/23 07/25/23 History Pantoprazole [Protonix] 40 mg PO AC-BID 07/25/23 07/25/23 History Tamsulosin [Flomax] 0.4 mg PO DAILY 07/25/23 07/25/23 History Topiramate [Topamax] 100 mg PO BID 07/25/23 07/25/23 History cefTRIAXone [Rocephin] 1 gm IVPB DAILY 07/25/23 07/25/23 History oxyBUTYnin chloride [Ditropan] 5 mg PO BID PRN 07/25/23 07/25/23 History Allergies Allergy/AdvReac Type Severity Reaction Status Date / Time codeine AdvReac Nausea & Verified 07/25/23 21:21 Vomiting Penicillins AdvReac Nausea & Verified 07/25/23 21:21 Vomiting Sulfa (Sulfonamide AdvReac Nausea & Verified 07/25/23 21:21 Antibiotics) Vomiting tramadol AdvReac Unknown Verified 07/25/23 21:21 Surgical - Exam Vital Signs Temp Pulse Resp BP Pulse Ox 97.3 F L 121 H 18 165/103 98 07/25/23 17:39 07/25/23 17:39 07/25/23 17:39 07/25/23 17:39 07/25/23 17:39 Results - Labs 07/28/23 04:09 07/28/23 04:09 Abnormal Lab Results - Last 24 Hours (Table) 07/27/23 07/27/23 07/28/23 Range/Units 17:21 20:25 04:09 RBC 3.12 L (4.10-5.20) X 10*6/uL Hgb 8.8 L (12.0-15.0) g/dL Hct 27.4 L (37.2-46.3) % RDW 14.7 H (11.5-14.5) % Potassium (3.5-5.5) mmol/L Carbon Dioxide (21.6-31.8) mmol/L Anion Gap (4.00-12.00) mmol/L Glucose (70-110) mg/dL POC Glucose (mg/dL) 223 H 207 H (70-110) mg/dL 07/28/23 07/28/23 Range/Units 04:09 06:17 RBC (4.10-5.20) X 10*6/uL Hgb (12.0-15.0) g/dL Hct (37.2-46.3) % RDW (11.5-14.5) % Potassium 3.3 L (3.5-5.5) mmol/L Carbon Dioxide 18.2 L (21.6-31.8) mmol/L Anion Gap 16.80 H (4.00-12.00) mmol/L Glucose 170 H (70-110) mg/dL POC Glucose (mg/dL) 182 H (70-110) mg/dL Diabetes panel 07/28/23 Range/Units 04:09 Sodium 142 (135-145) mmol/L Potassium 3.3 L (3.5-5.5) mmol/L Chloride 107 (96-109) mmol/L Carbon Dioxide 18.2 L (21.6-31.8) mmol/L BUN 11.1 (9.0-27.0) mg/dL Creatinine 0.6 (0.6-1.5) mg/dL Glucose 170 H (70-110) mg/dL Calcium 9.4 (8.7-10.3) mg/dL Calcium panel 07/28/23 Range/Units 04:09 Calcium 9.4 (8.7-10.3) mg/dL Pituitary panel 07/28/23 Range/Units 04:09 Sodium 142 (135-145) mmol/L Potassium 3.3 L (3.5-5.5) mmol/L Chloride 107 (96-109) mmol/L Carbon Dioxide 18.2 L (21.6-31.8) mmol/L BUN 11.1 (9.0-27.0) mg/dL Creatinine 0.6 (0.6-1.5) mg/dL Glucose 170 H (70-110) mg/dL Calcium 9.4 (8.7-10.3) mg/dL Adrenal panel 07/28/23 Range/Units 04:09 Sodium 142 (135-145) mmol/L Potassium 3.3 L (3.5-5.5) mmol/L Chloride 107 (96-109) mmol/L Carbon Dioxide 18.2 L (21.6-31.8) mmol/L BUN 11.1 (9.0-27.0) mg/dL Creatinine 0.6 (0.6-1.5) mg/dL Glucose 170 H (70-110) mg/dL Calcium 9.4 (8.7-10.3) mg/dL
[2023-07-28 12:20] LABS: Glucose,Whole Blood 161 mg/dL (70-110)
[2023-07-28] MEDS: POTASSIUM CHLORIDE 10 MEQ in WATER FOR INJECTION 1 100ML.BAG IVPB SCH ×2 (14:33→15:34)
[2023-07-28 17:27] LABS: Glucose,Whole Blood 165 mg/dL (70-110)
--- NOTE | 2023-07-28 17:39 | P.PN ---
Subjective Progress Note Date: 07/28/23 43-year-old female presenting with chief complaint of nausea vomiting and abdominal pain. Patient was recently admitted to our facility on 07/10 with urosepsis and stone as well as suspected upper GI bleeding. Patient has history of gastric ulcers due to prolonged NSAID use. Patient was transferred to [facility] because we did not have GI services. She states that she underwent a scope, she does not believe that any interventions were performed. She was started on Protonix. Septic stone was removed and patient was sent home on ceftriaxone. Today the patient has been unable to keep down any foods or liquids. She has been unable to keep down her medications as well. She admits to epigastric pain. No coffee ground emesis or dark tarry stool. No chest pain or difficulty breathing. Hemoglobin 9.8, which is stable from previous value. Lipase 803. Glucose 340. Anion gap 15 carbon dioxide 19. Urine shows moderate leukocytes with 6 RBCs and 24 WBCs, patient is currently on Rocephin at home for recent septic kidney stone. Positive acetone, likely secondary to vomiting. Urine only shows trace ketones. Patient will be admitted and treated for pancreatitis. Negative CT of the abdomen and pelvis. -- Patient continues to complain of persistent nausea; has been taking Dilaudid 1 mg every 4 hours [id number] -- Lipase is within normal limits - We will back off on IV pain medications and change Dilaudid to 0.5 mg every 6 hours when necessary; start patient on a full liquid diet and advance as tolerated - Patient continues to have intractable nausea and vomiting; still not able to eat or drink anything -- Patient has been evaluated by surgery and is recommended EGD Objective - Vital Signs Vital signs: Vital Signs Temp 98.1 F 07/28/23 07:15 Pulse 97 07/28/23 07:15 Resp 16 07/28/23 07:15 BP 155/84 07/28/23 07:15 Pulse Ox 99 07/28/23 07:15 FiO2 Intake & Output 07/27/23 07/28/23 07/28/23 18:59 06:59 18:59 Intake Total 1090 Balance 1090 Intake: Intake, IV Titration 1090 Amount Sodium Chloride 0.9% 1, 1040 000 ml @ 130 mls/hr IV . [id number] [facility] Rx#:[id number] cefTRIAXone 1 gm In 50 Sodium Chloride 0.9% 50 ml @ 100 mls/hr IVPB Q24HR [facility] Rx#:[id number] Other: # Voids 1 - Exam - Constitutional General appearance: Present: average body habitus, cooperative, no acute distress - EENT Eyes: Present: anicteric sclerae, EOMI, PERRLA, normal appearance ENT: Present: hearing grossly normal, normal oropharynx Ears: bilateral: normal - Neck Neck: Present: normal ROM. Absent: lymphadenopathy, rigidity, thyromegaly Carotids: negative: bruit present Thyroid: bilateral: normal size, negative: enlarged, nodule - Respiratory Respiratory: bilateral: CTA, negative: rales, rhonchi, wheezing - Cardiovascular Rhythm: regular Heart sounds: normal: S1, S2 Abnormal Heart Sounds: Absent: systolic murmur, diastolic murmur - Gastrointestinal General gastrointestinal: Present: normal bowel sounds, soft. Absent: distended, organomegaly, tenderness - Genitourinary Genitourinary Comment(s): deferred - Integumentary Integumentary: Present: normal turgor. Absent: jaundiced, rash, ulcer - Neurologic Neurologic: Present: CNII-XII intact. Absent: focal deficits - Musculoskeletal Musculoskeletal: Present: gait normal, strength equal bilaterally - Psychiatric Psychiatric: Present: A&O x's 3, appropriate affect, intact judgment & insight - Labs CBC & Chem 7: 07/28/23 04:09 07/28/23 04:09 Labs: Abnormal Lab Results - Last 24 Hours (Table) 07/27/23 07/27/23 07/28/23 Range/Units 17:21 20:25 04:09 RBC 3.12 L (4.10-5.20) X 10*6/uL Hgb 8.8 L (12.0-15.0) g/dL Hct 27.4 L (37.2-46.3) % RDW 14.7 H (11.5-14.5) % Potassium (3.5-5.5) mmol/L Carbon Dioxide (21.6-31.8) mmol/L Anion Gap (4.00-12.00) mmol/L Glucose (70-110) mg/dL POC Glucose (mg/dL) 223 H 207 H (70-110) mg/dL 07/28/23 07/28/23 07/28/23 Range/Units 04:09 06:17 12:18 RBC (4.10-5.20) X 10*6/uL Hgb (12.0-15.0) g/dL Hct (37.2-46.3) % RDW (11.5-14.5) % Potassium 3.3 L (3.5-5.5) mmol/L Carbon Dioxide 18.2 L (21.6-31.8) mmol/L Anion Gap 16.80 H (4.00-12.00) mmol/L Glucose 170 H (70-110) mg/dL POC Glucose (mg/dL) 182 H 161 H (70-110) mg/dL Assessment and Plan Assessment: 1. Acute pancreatitis -Patient has been kept nothing by mouth; IV fluid hydration normal saline at a rate of 1 30 mL an hour; Protonix 40 mg IV every 12 hours -Continue pain control with IV Dilaudid when necessary 2. Septic kidney stone; remains on Rocephin 1 g IV daily; Flomax to 0.4 mg daily 3. Anemia; history of GI bleed; history of diverticulosis; no active bleeding; hemoglobin at baseline 4. Seizure disorder; Topamax 100 mg twice a day 5. Diabetes mellitus with long-term insulin use; Levemir 24 units subcu daily which will be placed on hold while patient is nothing by mouth 6. Asthma; not in exacerbation; continue with home inhaler therapy; Claritin 10 mg daily 7. Hyperlipidemia; rosuvastatin 40 mg daily 8. Hypertension; propranolol 20 mg daily DVT prophylaxis; SCDs CODE STATUS;
[2023-07-28 20:32] LABS: Glucose,Whole Blood 175 mg/dL (70-110)
[2023-07-29] MEDS: ONDANSETRON 4 MG/2 ML VIAL IVP PRN ×4 (00:15→23:06)
[2023-07-29] MEDS: HYDROmorphone 0.5 MG/0.5 ML SYRINGE IVP PRN ×3 (04:10→21:44)
[2023-07-29] MEDS: SODIUM CHLORIDE 0.9% 1,000 ML IV SCH ×3 (04:11→20:46)
[2023-07-29 06:11] LABS: Glucose,Whole Blood 155 mg/dL (70-110)
[2023-07-29] MEDS: INSULIN ASPART (NovoLOG) 100 UNIT/ML VIAL SQ SCH ×4 (06:51→20:45)
[2023-07-29] MEDS ORDERED: IV FLUID CONTINUATION 300 ML IV ONE (08:27)
[2023-07-29] MEDS ORDERED: LIDOCAINE 1% INJ 10MG/ML (20 ML MDV) ONE (08:33)
[2023-07-29] MEDS ORDERED: PROPOFOL 10 MG/ML 20 ML VIAL IV ONE (08:33)
--- NOTE | 2023-07-29 08:53 | P.PCN ---
Date of Procedure: 07/29/23 Description of Procedure: PREOPERATIVE DIAGNOSIS: Recent ccute gastrointestinal bleeding Acute blood loss anemia Status post blood transfusions Chronic NSAID use Severe epigastric pain POSTOPERATIVE DIAGNOSIS: Erosive esophagitis Recent ccute gastrointestinal bleeding Acute blood loss anemia Status post blood transfusions Chronic NSAID use Severe epigastric pain OPERATION: Esophagogastroduodenoscopy SURGEON: Evelyn Craven MD ANESTHESIA: MAC. INDICATIONS: The patient is a 43-year-old female who presents with recent gastrointestinal bleeding. Benefits and risks of the procedure were described. Informed consent was obtained. DESCRIPTION: The patient was brought into the endoscopy suite and laid in the left lateral decubitus position. An Olympus gastroscope was passed along the posterior oropharynx down to the distal esophagus where the squamocolumnar junction was encountered at 35 cm from the incisors. The stomach was entered and no bile reflux was found. Additional findings are listed below. The first through third portion of the duodenum was examined and unremarkable. Retroflexion of the scope confirmed Hill grade 1 lower esophageal valve. The squamocolumnar junction demonstrated LA grade B erosive esophagitis. The stomach was desufflated. The patient tolerated the procedure well. FINDINGS: Squamocolumnar junction 35 cm from the incisors. Diaphragmatic hiatus at 35 cm. Hill grade 1 lower esophageal valve. LA grade B erosive esophagitis. No active duodenitis. No stigmata of bleeding RECOMMENDATIONS: 1. Diet as tolerated 2. Upper endoscopy as needed 3. Recommend additional workup for epigastric abdominal pain
[2023-07-29] MEDS: PANTOPRAZOLE 40 MG/10 ML VIAL IVP SCH ×2 (08:59→19:49)
[2023-07-29] MEDS: PROPRANOLOL 20 MG TAB PO SCH (09:00)
[2023-07-29] MEDS: TOPIRAMATE 100 MG TAB PO SCH ×2 (09:00→19:50)
[2023-07-29] MEDS: TAMSULOSIN 0.4 MG CAP.ER.24H PO SCH (09:00)
[2023-07-29 09:20] LABS: BUN/Creat Ratio 15.14 Ratio (12.00-20.00); Blood Urea Nitrogen 10.6 mg/dL (9.0-27.0); Calcium 9.4 mg/dL (8.7-10.3); Carbon Dioxide 18.4 mmol/L (21.6-31.8); Chloride 107 mmol/L (96-109); Glucose 159 mg/dL (70-110); Sodium 141 mmol/L (135-145)
[2023-07-29 09:21] LABS: Basophils % (A) 2.1 %; Eosinophils # (A) 0.11 X 10*3/uL (0.04-0.35); Eosinophils % (A) 2.3 %; HCT 26.9 % (37.2-46.3); HGB 8.8 g/dL (12.0-15.0); Lymphocytes # (A) 1.18 X 10*3/uL (0.90-5.00); MCHC 32.7 g/dL (32.0-37.0); MCV 85.7 FL (80.0-97.0); Mean Platelet Volume 9.8 FL (9.5-12.2); Monocytes % (A) 12.7 %; NRBC Per 100 WBC 0 X 10*3/uL (0.00-0.01); Neutrophils # (A) 2.72 X 10*3/uL (1.80-7.70); Neutrophils % (A) 57.7 %; Platelet Count 351 X 10*3/uL (140-440); RBC 3.14 X 10*6/uL (4.10-5.20); WBC 4.72 X 10*3/uL (4.50-10.00)
--- NOTE | 2023-07-29 11:45 | US ---
EXAMINATION TYPE: US gallbladder DATE OF EXAM: 07/29/2023 COMPARISON: NONE CLINICAL INDICATION: Female, 43 years old with history of RUQ pain; RUQ pain, nausea/vomiting, pancre atitis TECHNIQUE: Multiple sonographic images of the right upper quadrant are obtained. FINDINGS: EXAM MEASUREMENTS: Liver Length: 14.3 cm Gallbladder Wall: 0.2 cm CBD: 0.5 cm Right Kidney: 10.9 x 5.5 x 5.7 cm ARTS MANAGER NOTES:*limitations due to large amount of overlying bowel gas Pancreas: Obscured by bowel gas Liver: appears wnl Gallbladder: sludge Evidence for sonographic Rader's sign: no CBD: wnl Right Kidney: no evidence of hydronephrosis IMPRESSION: Gallbladder sludge. Otherwise study. Portions of the examination are limited.
[2023-07-29 12:04] LABS: Glucose,Whole Blood 169 mg/dL (70-110)
[2023-07-29 14:17] LABS: Amphetamine Screen,Urine Not Detected (NotDetected); Barbiturate Screen,Urine Not Detected (NotDetected); Benzodiazepines Screen,Urine Not Detected (NotDetected); Cocaine Screen,Urine Not Detected (NotDetected); Methadone Screen, Urine Not Detected (NotDetected); Opiate Screen,Urine Detected (NotDetected); Oxycodone Screen, Urine Not Detected (NotDetected); Phencyclidine Screen,Urine Not Detected (NotDetected); Tricyclic Antidepressant,Urine Not Detected (NotDetected); Urn Cannabinoid Scrn Not Detected (NotDetected)
--- NOTE | 2023-07-29 16:41 | NM ---
EXAMINATION TYPE: NM hepatobiliary w CCK DATE OF EXAM: 07/29/2023 COMPARISON: Gallbladder ultrasound 07/29/2023, CT abdomen pelvis 07/25/2023 CLINICAL INDICATION: Female, 43 years old with history of RUQ pain; TECHNIQUE: After the intravenous administration of 5.4 mCi Tc 99m Mebrofenin hepatobiliary scintigrap hy is performed. Immediate images post injection. FINDINGS: There is satisfactory initial accumulation of tracer by the liver. The gallbladder is visualized wit hin 14 minutes. The small bowel activity is noted within 14 minutes. At one hour CCK was administer ed, patient was injected with 1.1 mcg of Kinevac, and gallbladder ejection fraction is calculated at 21 percent. IMPRESSION: 1. No evidence for cystic duct or common bile duct obstruction to suggest acute cholecystitis. 2. Gallbladder dyskinesia with ejection fraction of 21%.
[2023-07-29 17:51] LABS: Glucose,Whole Blood 155 mg/dL (70-110)
--- NOTE | 2023-07-29 19:28 | P.PN ---
Subjective Progress Note Date: 07/29/23 43-year-old female presenting with chief complaint of nausea vomiting and abdominal pain. Patient was recently admitted to our facility on 07/10 with urosepsis and stone as well as suspected upper GI bleeding. Patient has history of gastric ulcers due to prolonged NSAID use. Patient was transferred to [facility] because we did not have GI services. She states that she underwent a scope, she does not believe that any interventions were performed. She was started on Protonix. Septic stone was removed and patient was sent home on ceftriaxone. Today the patient has been unable to keep down any foods or liquids. She has been unable to keep down her medications as well. She admits to epigastric pain. No coffee ground emesis or dark tarry stool. No chest pain or difficulty breathing. Hemoglobin 9.8, which is stable from previous value. Lipase 803. Glucose 340. Anion gap 15 carbon dioxide 19. Urine shows moderate leukocytes with 6 RBCs and 24 WBCs, patient is currently on Rocephin at home for recent septic kidney stone. Positive acetone, likely secondary to vomiting. Urine only shows trace ketones. Patient will be admitted and treated for pancreatitis. Negative CT of the abdomen and pelvis. -- Patient continues to complain of persistent nausea; has been taking Dilaudid 1 mg every 4 hours [id number] -- Lipase is within normal limits - We will back off on IV pain medications and change Dilaudid to 0.5 mg every 6 hours when necessary; start patient on a full liquid diet and advance as tolerated - Patient continues to have intractable nausea and vomiting; still not able to eat or drink anything -- Patient has been evaluated by surgery and is recommended EGD 07/29/2023 Patient is seen and evaluated in follow-up this morning reporting severe nausea and has been dry heaving and underwent EGD showing grade B erosive esophagitis with no active duodenitis and no stigmata of bleeding and scheduled to undergo gallbladder ultrasound along with HIDA scan. Patient continues to report significant abdominal pain reporting her pain is not controlled and will adjust medications. Patient also with continued nausea will add and adjust nausea medications. Hemoglobin is stable above 8 with no active bleeding noted and general surgery awaiting further testing for additional recommendations. Patient is afebrile denies chest pain or shortness of breath. Patient reports currently not eating anything and not tolerating. Review of systems: Constitutional: No reports of fatigue, fever, or chills Cardiovascular: No reports of chest pain or palpitations Respiratory: No reports of shortness of breath or cough GI: reports of nausea, with continued vomiting, or diarrhea and severe abdominal pain : No reports of dysuria or retention Neurovascular: reports of generalized weakness All medications have been reviewed Physical exam: Gen: This is a 43-year-old female who is awake, alert and oriented 3, thin built, elderly appearing, ill appearing HEENT: Head is atraumatic, normocephalic. Pupils equal, round. Sclerae is anicteric. NECK: Supple. No JVD. No lymphadenopathy. No thyromegaly. LUNGS: Clear to auscultation. No wheezes or rhonchi. No intercostal retractions. HEART: Regular rate and rhythm. No murmur. ABDOMEN: Soft. Tender, thin Bowel sounds are present. No masses. EXTREMITIES: No pedal edema. No calf tenderness. NEUROLOGICAL: Patient is awake, alert and oriented x3. Cranial nerves 2 through 12 are grossly intact. Assessment: 1. Acute pancreatitis 2. Recent diagnosis of Septic kidney stone at [facility] and sent home on IV an tibiotics and will continue 3. Anemia; history of GI bleed; history of diverticulosis; no active bleeding; hemoglobin at baseline 4. Seizure disorder history 5. Diabetes mellitus, type II, insulin-dependent 6. Asthma; not in exacerbation 7. Hyperlipidemia 8. Hypertension 9. Moderate routine calorie malnutrition with a BMI of 21.4 10. Grade B erosive esophagitis on EGD 11. GI prophylaxis 12. DVT prophylaxis; SCDs 13. Full code Plan: Patient will be continued on IV hydration and decrease the rate slightly to 100 mL per hour. General surgery is following and underwent EGD Gallbladder ultrasound along with HIDA scan ordered and pending at this time Hemoglobin is stable above 8 and will continue to monitor with follow-up labs in a.m. No active bleeding noted an EGD showed grade B erosive esophagitis Patient not tolerating much oral intake and will follow-up with repeat amylase/ lipase Continue GI prophylaxis and make Protonix twice daily Patient continues to report severe pain of the abdomen will increase pain medications Encouraged increased activity as tolerated Continue ceftriaxone as she was discharged from [facility] for a septic stone on IV antibiotics outpatient Due to multiple complex medical issues, prognosis is guarded The impression and plan of care has been dictated by Nicole Moncada, Nurse Practitioner as directed. Dr. José MD I have performed a history and examination and MDM of this patient, discussed the same with the dictator, and agree with the dictator's assessment and plan as written ,documented as a scribe. Based on total visit time, I have performed more than 50% of the visit. Objective - Vital Signs Vital signs: Vital Signs Temp 98.2 F 07/29/23 09:00 Pulse 89 07/29/23 09:45 Resp 16 07/29/23 07:15 BP 176/94 07/29/23 09:45 Pulse Ox 100 07/29/23 09:45 FiO2 Intake & Output 07/28/23 07/29/23 07/29/23 18:59 06:59 18:59 Intake Total 50 100 Balance 50 100 Intake: IV 100 Oral 50 Other: Voiding Method Toilet # Voids 1 1 - Labs CBC & Chem 7: 07/29/23 06:05 07/29/23 06:05 Labs: Abnormal Lab Results - Last 24 Hours (Table) 07/28/23 07/28/23 07/28/23 Range/Units 12:18 17:24 20:30 RBC (4.10-5.20) X 10*6/uL Hgb (12.0-15.0) g/dL Hct (37.2-46.3) % RDW (11.5-14.5) % Potassium (3.5-5.5) mmol/L Carbon Dioxide (21.6-31.8) mmol/L Anion Gap (4.00-12.00) mmol/L Glucose (70-110) mg/dL POC Glucose (mg/dL) 161 H 165 H 175 H (70-110) mg/dL 07/29/23 07/29/23 07/29/23 Range/Units 06:05 06:05 06:09 RBC 3.14 L (4.10-5.20) X 10*6/uL Hgb 8.8 L (12.0-15.0) g/dL Hct 26.9 L (37.2-46.3) % RDW 15.0 H (11.5-14.5) % Potassium 3.0 L (3.5-5.5) mmol/L Carbon Dioxide 18.4 L (21.6-31.8) mmol/L Anion Gap 15.60 H (4.00-12.00) mmol/L Glucose 159 H (70-110) mg/dL POC Glucose (mg/dL) 155 H (70-110) mg/dL
[2023-07-29] MEDS ORDERED: hydrALAZINE HCL 20 MG/ML 1 ML VIAL IVP PRN (19:29)
[2023-07-29] MEDS ORDERED: Potassium Replacement Protocol 1 EACH MISC MISCELLANE PRN (19:30)
[2023-07-29] MEDS: POTASSIUM CHLORIDE 10 MEQ in WATER FOR INJECTION 1 100ML.BAG IVPB SCH ×4 (19:50→23:06)
[2023-07-29 20:10] LABS: Glucose,Whole Blood 155 mg/dL (70-110)
[2023-07-30] MEDS: HYDROmorphone 0.5 MG/0.5 ML SYRINGE IVP PRN ×6 (00:50→20:25)
[2023-07-30 02:35] LABS: Amylase 38 U/L (23-121); Lipase 75 U/L (14-63)
[2023-07-30] MEDS: SODIUM CHLORIDE 0.9% 1,000 ML IV SCH ×2 (04:31→13:00)
[2023-07-30 06:08] LABS: Glucose,Whole Blood 141 mg/dL (70-110)
[2023-07-30] MEDS: INSULIN ASPART (NovoLOG) 100 UNIT/ML VIAL SQ SCH ×4 (06:14→21:50)
[2023-07-30] MEDS: PANTOPRAZOLE 40 MG/10 ML VIAL IVP SCH ×2 (08:55→20:26)
[2023-07-30] MEDS: TAMSULOSIN 0.4 MG CAP.ER.24H PO SCH (09:59)
[2023-07-30] MEDS: TOPIRAMATE 100 MG TAB PO SCH ×2 (09:59→20:26)
[2023-07-30] MEDS: PROPRANOLOL 20 MG TAB PO SCH (09:59)
[2023-07-30 10:43] LABS: Basophils # (A) 0.08 X 10*3/uL (0.00-0.10); Basophils % (A) 1.8 %; Eosinophils # (A) 0.14 X 10*3/uL (0.04-0.35); Eosinophils % (A) 3.2 %; HCT 27.3 % (37.2-46.3); HGB 8.9 g/dL (12.0-15.0); Lymphocytes % (A) 27.7 %; MCH 27.7 pg (27.0-32.0); MCHC 32.6 g/dL (32.0-37.0); Mean Platelet Volume 9.7 FL (9.5-12.2); Monocytes # (A) 0.57 X 10*3/uL (0.20-1.00); Monocytes % (A) 13.2 %; NRBC Per 100 WBC 0 X 10*3/uL (0.00-0.01); Neutrophils # (A) 2.33 X 10*3/uL (1.80-7.70); Neutrophils % (A) 53.9 %; Platelet Count 291 X 10*3/uL (140-440); RBC 3.21 X 10*6/uL (4.10-5.20); RDW 14.9 % (11.5-14.5); WBC 4.33 X 10*3/uL (4.50-10.00)
[2023-07-30 11:04] LABS: BUN/Creat Ratio 16.33 Ratio (12.00-20.00); Blood Urea Nitrogen 9.8 mg/dL (9.0-27.0); Calcium 9.2 mg/dL (8.7-10.3); Carbon Dioxide 20.4 mmol/L (21.6-31.8); Chloride 105 mmol/L (96-109); Glucose 144 mg/dL (70-110); Potassium 3.1 mmol/L (3.5-5.5); Sodium 142 mmol/L (135-145)
[2023-07-30 11:05] LABS: Magnesium 1.4 mg/dL (1.5-2.4)
[2023-07-30 12:12] LABS: Glucose,Whole Blood 136 mg/dL (70-110)
[2023-07-30] MEDS ORDERED: POTASSIUM CHLORIDE ER 20 MEQ TAB.ER PO STA (13:08)
--- NOTE | 2023-07-30 13:11 | P.PN ---
Subjective Progress Note Date: 07/30/23 CHIEF COMPLAINT: Recent gastrointestinal bleeding HISTORY OF PRESENT ILLNESS: Patient status post EGD demonstrated erosive esophagitis. Patient had abdominal ultrasound showing gallbladder sludge. HIDA scan showed no evidence for cystic duct or common bile duct obstruction to suggest acute cholecystitis. Gallbladder dyskinesia with EF of 21%. Patient currently tolerating diet. No nausea or vomiting reported. Her pain is a little less than yesterday. Afebrile. WBC is 4.33 Hgb 8.9 platelets 291 sodium is 142 potassium is 3.1 creatinine 0.6 magnesium 1.4 PHYSICAL EXAM: VITAL SIGNS: Reviewed GENERAL: Well-developed in no acute distress. HEENT: No sclera icterus. Extraocular movements grossly intact. Moist buccal mucosa. Head is atraumatic, normocephalic. Hears conversational speech. No nasal drainage. NECK: Supple without lymphadenopathy. CHEST: Non-labored respirations and equal bilateral excursions. CARDIOVASCULAR: Palpable 2+ radial pulses. ABDOMEN: Soft. Nondistended. MUSCULOSKELETAL: No clubbing or cyanosis. NEUROLOGIC: No focal or lateralizing signs. Cranial nerves II through XII grossly intact. PSYCH: Appropriate affect. Alert and oriented to person, place and time. SKIN: Well perfused. Good skin turgor. ASSESSMENT: Erosive esophagitis Recent ccute gastrointestinal bleeding Acute blood loss anemia Status post blood transfusions Chronic NSAID use Severe epigastric pain Gallbladder dyskinesia with EF of 21% noted on HIDA Gallbladder sludge noted on abdominal ultrasound Hypokalemia Hypomagnesemia PLAN: -Recommend low-fat diet -Replace potassium and magnesium -Further recommendations forthcoming per surgeon regarding date of cholecystectomy -Continue supportive care Physician Personal Banking Assistant note has been reviewed by physician. Signing provider agrees with the documented findings, assessment, and plan of care. Objective - Vital Signs Vital signs: Vital Signs Temp 98.1 F 07/30/23 07:00 Pulse 86 07/30/23 07:00 Resp 17 07/30/23 07:00 BP 149/89 07/30/23 07:00 Pulse Ox 98 07/30/23 07:00 FiO2 Intake & Output 07/29/23 07/30/23 07/30/23 18:59 06:59 18:59 Intake Total 150 Balance 150 Intake: IV 100 Intake, IV Titration 50 Amount cefTRIAXone 1 gm In 50 Sodium Chloride 0.9% 50 ml @ 100 mls/hr IVPB Q24HR [facility] Rx#:[id number] Other: Voiding Method Toilet # Voids 2 2 - Labs CBC & Chem 7: 07/30/23 06:36 07/30/23 06:36 Labs: Abnormal Lab Results - Last 24 Hours (Table) 07/29/23 07/29/23 07/29/23 Range/Units 06:20 12:02 13:30 POC Glucose (mg/dL) 169 H (70-110) mg/dL Lipase 75 H (14-63) U/L Urine Opiates Screen Detected H (NotDetected) 07/29/23 07/29/23 07/30/23 Range/Units 17:48 20:08 06:06 POC Glucose (mg/dL) 155 H 155 H 141 H (70-110) mg/dL Lipase (14-63) U/L Urine Opiates Screen (NotDetected)
[2023-07-30] MEDS: MAGNESIUM SULFATE-D5W PMX 1 GM in DEXTROSE/WATER 1 100ML.BAG IVPB SCH ×2 (13:53→16:42)
--- NOTE | 2023-07-30 15:00 | CDI ---
Documentation Clarification Form Date: 07/30/2023 02:11:17 PM From: Breana Horner RN, CCDS Email: [email or web address] Admit Date: 07/26/2023 02:00:00 AM Patient Name: Estela Gilbert Visit Number: [id number] Discharge Date: ATTENTION: The Clinical Documentation Specialists (CDI) and [facility] Coding Staff appreciate your assistance in clarifying documentation. Please respond to the clarification below the line at the bottom and electronically sign. The CDI & [facility] Coding staff will review the response and follow-up if needed. Please note: Queries are made part of the Legal Health Record. If you have any questions, please contact the author of this message via ITS. Dr. Margie Ayala Your patient has nausea, vomiting and abdominal pain. Additional clarification regarding the etiology/cause of this is requested. Patient history/risk factors: gastric ulcers due to prolonged NSAID use, GI bleed, recent kidney stone and DM. Presented with nausea, vomiting and abdominal pain. Admitted with acute pancreatitis and erosive esophagitis Clinical Indicators: H&P: "Acute pancreatitis. Septic kidney stone, remains on Rocephin IV daily. 07/28 Surgery consult: "With history of acute GI bleed and abdominal pain, recommend repeat upper endoscopy." 07/30 Surgery: "Erosive esophagitis. Severe epigastric pain. Gallbladder dyskinesia with EF of 21% noted on HIDA. Gallbladder sludge noted on abdominal ultrasound. Further recommendations forthcoming per surgeon regarding date of cholecystectomy." 07/25 CT A/P: Double pigtail left ureteral stent in adequate placement. No left or right-sided hydronephrosis or hydroureter. 07/29 Gallbladder U/S: Gallbladder sludge. 07/29 NM hepatobiliary: No evidence for cystic duct or common bile duct obstruction to suggest acute cholecystitis. Gallbladder dyskinesia with ejection fraction of 21%. 07/25-07/29 Lipase: [id number] 07/25 Vital Signs: HR 121, BP 165/103 07/29 EGD: erosive esophagitis Treatment: NPO 07/26; 0.9 NS 2L IV bolus on 07/25 then 100mL/hr 07/25-current Medication: IV Protonix 40mg x1 on 07/25; IV Protonix 40mg IVP BID; IV Zofran 4mg x1 on 07/25; IV Zofran 4mg IVP Q6H prn; IV Reglan 5mg x1 on 07/25; IV Dilaudid 0.5mg Q4-8H prn; IV Rocephin 1gm daily; Flomax 0.4mg po daily 07/27-07/30 Please provide additional clarification regarding the etiology/cause of the abdominal pain: [@@@ ] Abdominal pain due to acute pancreatitis [ ] Abdominal pain due to erosive esophagitis [ ] Abdominal pain due to gallbladder dyskinesia [ ] Abdominal pain due to kidney stone [ ] Other, please specify [ ] Unable to determine MTDD
[2023-07-30] MEDS: ONDANSETRON 4 MG/2 ML VIAL IVP PRN (16:42)
[2023-07-30] MEDS: 0.9% NACL WITH KCL 20 MEQ/L 1,000 ML IV SCH (16:57)
[2023-07-30 17:49] LABS: Glucose,Whole Blood 168 mg/dL (70-110)
[2023-07-30] MEDS ORDERED: HYDROmorphone 0.5 MG/0.5 ML SYRINGE IVP STA (21:01)
[2023-07-30 21:36] LABS: Glucose,Whole Blood 225 mg/dL (70-110)
[2023-07-31] MEDS: 0.9% NACL WITH KCL 20 MEQ/L 1,000 ML IV SCH ×2 (01:01→12:50)
[2023-07-31] MEDS: HYDROmorphone 0.5 MG/0.5 ML SYRINGE IVP PRN ×5 (01:01→22:52)
[2023-07-31] MEDS: ONDANSETRON 4 MG/2 ML VIAL IVP PRN ×3 (04:50→22:52)
--- NOTE | 2023-07-31 06:03 | P.PN ---
Subjective Progress Note Date: 07/30/23 43-year-old female presenting with chief complaint of nausea vomiting and abdominal pain. Patient was recently admitted to our facility on 07/10 with urosepsis and stone as well as suspected upper GI bleeding. Patient has history of gastric ulcers due to prolonged NSAID use. Patient was transferred to [facility] because we did not have GI services. She states that she underwent a scope, she does not believe that any interventions were performed. She was started on Protonix. Septic stone was removed and patient was sent home on ceftriaxone. Today the patient has been unable to keep down any foods or liquids. She has been unable to keep down her medications as well. She admits to epigastric pain. No coffee ground emesis or dark tarry stool. No chest pain or difficulty breathing. Hemoglobin 9.8, which is stable from previous value. Lipase 803. Glucose 340. Anion gap 15 carbon dioxide 19. Urine shows moderate leukocytes with 6 RBCs and 24 WBCs, patient is currently on Rocephin at home for recent septic kidney stone. Positive acetone, likely secondary to vomiting. Urine only shows trace ketones. Patient will be admitted and treated for pancreatitis. Negative CT of the abdomen and pelvis. -- Patient continues to complain of persistent nausea; has been taking Dilaudid 1 mg every 4 hours [id number] -- Lipase is within normal limits - We will back off on IV pain medications and change Dilaudid to 0.5 mg every 6 hours when necessary; start patient on a full liquid diet and advance as tolerated - Patient continues to have intractable nausea and vomiting; still not able to eat or drink anything -- Patient has been evaluated by surgery and is recommended EGD 07/29/2023 Patient is seen and evaluated in follow-up this morning reporting severe nausea and has been dry heaving and underwent EGD showing grade B erosive esophagitis with no active duodenitis and no stigmata of bleeding and scheduled to undergo gallbladder ultrasound along with HIDA scan. Patient continues to report significant abdominal pain reporting her pain is not controlled and will adjust medications. Patient also with continued nausea will add and adjust nausea medications. Hemoglobin is stable above 8 with no active bleeding noted and general surgery awaiting further testing for additional recommendations. Patient is afebrile denies chest pain or shortness of breath. Patient reports currently not eating anything and not tolerating. 07/30/2023 Patient seen in follow-up this morning continues with abdominal pain and tenderness with nausea. Vomiting has somewhat subsided and continue with antinausea medications. General surgery following the patient underwent HIDA scan gallbladder ultrasound showing sludge as well as dyskinesia and discussing possible plans of laparoscopic cholecystectomy. Patient is currently afebrile with no reported chest pain or shortness of breath. Recommend just ice chips for now medication and patient will be nothing by mouth at midnight with possible surgical intervention being planned. We'll follow up on repeat labs and replace electrolytes per protocol his potassium remains low as well as magnesium. Review of systems: Constitutional: No reports of fatigue, fever, or chills Cardiovascular: No reports of chest pain or palpitations Respiratory: No reports of shortness of breath or cough GI: reports of nausea, with continued occasional vomiting, no diarrhea, and severe abdominal pain : No reports of dysuria or retention Neurovascular: reports of generalized weakness All medications have been reviewed Physical exam: Gen: This is a 43-year-old female who is awake, alert and oriented 3, thin built, elderly appearing, ill appearing HEENT: Head is atraumatic, normocephalic. Pupils equal, round. Sclerae is anicteric. NECK: Supple. No JVD. No lymphadenopathy. No thyromegaly. LUNGS: Clear to auscultation. No wheezes or rhonchi. No intercostal retractions. HEART: Regular rate and rhythm. No murmur. ABDOMEN: Soft. Tender, thin, Bowel sounds are present. No masses. EXTREMITIES: No pedal edema. No calf tenderness. NEUROLOGICAL: Patient is awake, alert and oriented x3. Cranial nerves 2 through 12 are grossly intact. Assessment: -Acute pancreatitis -Abdominal pain possibly secondary to gallbladder dyskinesia as noted on HIDA scan and ultrasound with sludge noted as well -Recent diagnosis of Septic kidney stone at [facility] and sent home on IV antibiotics and will continue -Anemia; history of GI bleed; history of diverticulosis; no active bleeding; hemoglobin at baseline -Seizure disorder history -Diabetes mellitus, type II, insulin-dependent -Asthma; not in exacerbation -Hyperlipidemia - Hypertension -Moderate routine calorie malnutrition with a BMI of 21.4 -Grade B erosive esophagitis on EGD - GI prophylaxis -DVT prophylaxis; SCDs -Full code Plan: Patient will be continued on IV hydration and decrease the rate slightly to 100 mL per hour. General surgery is following and underwent EGD Gallbladder ultrasound along with HIDA scan showing some dyskinesia along with sludge with plans for possible laparoscopic cholecystectomy awaiting OR availability Hemoglobin is stable above 8 and will continue to monitor with follow-up labs in a.m. No active bleeding noted an EGD showed grade B erosive esophagitis Patient not tolerating much oral intake and will follow-up with repeat amylase/lipase Continue GI prophylaxis and make Protonix IV twice daily Patient continues to report severe pain of the abdomen will continue to review pain medications Encouraged increased activity as tolerated Continue ceftriaxone as she was discharged from [facility] for a septic stone on IV antibiotics outpatient Due to multiple complex medical issues, prognosis is guarded The impression and plan of care has been dictated by Nicole Moncada, Nurse Practitioner as directed. Dr. José MD I have performed a history and examination and MDM of this patient, discussed the same with the dictator, and agree with the dictator's assessment and plan as written ,documented as a scribe. Based on total visit time, I have performed more than 50% of the visit. Objective - Vital Signs Vital signs: Vital Signs Temp 98.1 F 07/30/23 07:00 Pulse 86 07/30/23 07:00 Resp 17 07/30/23 07:00 BP 149/89 07/30/23 07:00 Pulse Ox 98 07/30/23 07:00 FiO2 Intake & Output 07/29/23 07/30/23 07/30/23 18:59 06:59 18:59 Intake Total 150 Balance 150 Intake: IV 100 Intake, IV Titration 50 Amount cefTRIAXone 1 gm In 50 Sodium Chloride 0.9% 50 ml @ 100 mls/hr IVPB Q24HR [facility] Rx#:[id number] Other: Voiding Method Toilet # Voids 2 2 - Labs CBC & Chem 7: 07/30/23 06:36 07/30/23 06:36 Labs: Abnormal Lab Results - Last 24 Hours (Table) 07/29/23 07/29/23 07/29/23 Range/Units 06:20 13:30 17:48 WBC (4.50-10.00) X 10*3/uL RBC (4.10-5.20) X 10*6/uL Hgb (12.0-15.0) g/dL Hct (37.2-46.3) % RDW (11.5-14.5) % Potassium (3.5-5.5) mmol/L Carbon Dioxide (21.6-31.8) mmol/L Anion Gap (4.00-12.00) mmol/L Glucose (70-110) mg/dL POC Glucose (mg/dL) 155 H (70-110) mg/dL Magnesium (1.5-2.4) mg/dL Lipase 75 H (14-63) U/L Urine Opiates Screen Detected H (NotDetected) 07/29/23 07/30/23 07/30/23 Range/Units 20:08 06:06 06:36 WBC 4.33 L (4.50-10.00) X 10*3/uL RBC 3.21 L (4.10-5.20) X 10*6/uL Hgb 8.9 L (12.0-15.0) g/dL Hct 27.3 L (37.2-46.3) % RDW 14.9 H (11.5-14.5) % Potassium (3.5-5.5) mmol/L Carbon Dioxide (21.6-31.8) mmol/L Anion Gap (4.00-12.00) mmol/L Glucose (70-110) mg/dL POC Glucose (mg/dL) 155 H 141 H (70-110) mg/dL Magnesium (1.5-2.4) mg/dL Lipase (14-63) U/L Urine Opiates Screen (NotDetected) 07/30/23 07/30/23 Range/Units 06:36 12:10 WBC (4.50-10.00) X 10*3/uL RBC (4.10-5.20) X 10*6/uL Hgb (12.0-15.0) g/dL Hct (37.2-46.3) % RDW (11.5-14.5) % Potassium 3.1 L (3.5-5.5) mmol/L Carbon Dioxide 20.4 L (21.6-31.8) mmol/L Anion Gap 16.60 H (4.00-12.00) mmol/L Glucose 144 H (70-110) mg/dL POC Glucose (mg/dL) 136 H (70-110) mg/dL Magnesium 1.4 L (1.5-2.4) mg/dL Lipase (14-63) U/L Urine Opiates Screen (NotDetected)
[2023-07-31 06:28] LABS: Glucose,Whole Blood 197 mg/dL (70-110)
[2023-07-31] MEDS: INSULIN ASPART (NovoLOG) 100 UNIT/ML VIAL SQ SCH ×4 (06:34→22:51)
[2023-07-31 08:23] LABS: Basophils # (A) 0.06 X 10*3/uL (0.00-0.10); Basophils % (A) 1.5 %; Eosinophils # (A) 0.15 X 10*3/uL (0.04-0.35); Eosinophils % (A) 3.8 %; HCT 25.4 % (37.2-46.3); HGB 8.5 g/dL (12.0-15.0); Lymphocytes # (A) 1.19 X 10*3/uL (0.90-5.00); Lymphocytes % (A) 30.1 %; MCH 28.1 pg (27.0-32.0); MCHC 33.5 g/dL (32.0-37.0); MCV 84.1 FL (80.0-97.0); Mean Platelet Volume 9.5 FL (9.5-12.2); Monocytes # (A) 0.56 X 10*3/uL (0.20-1.00); Monocytes % (A) 14.2 %; NRBC Per 100 WBC 0 X 10*3/uL (0.00-0.01); Neutrophils # (A) 1.98 X 10*3/uL (1.80-7.70); Neutrophils % (A) 50.1 %; Platelet Count 287 X 10*3/uL (140-440); RBC 3.02 X 10*6/uL (4.10-5.20); RDW 14.9 % (11.5-14.5); WBC 3.95 X 10*3/uL (4.50-10.00)
[2023-07-31] MEDS: TAMSULOSIN 0.4 MG CAP.ER.24H PO SCH (08:58)
[2023-07-31] MEDS: PROPRANOLOL 20 MG TAB PO SCH (08:58)
[2023-07-31] MEDS: TOPIRAMATE 100 MG TAB PO SCH ×2 (08:58→22:52)
[2023-07-31 08:59] LABS: Blood Urea Nitrogen 7.5 mg/dL (9.0-27.0); Calcium 9.4 mg/dL (8.7-10.3); Carbon Dioxide 23.2 mmol/L (21.6-31.8); Chloride 104 mmol/L (96-109); Glucose 180 mg/dL (70-110); Magnesium 1.9 mg/dL (1.5-2.4); Potassium 3.4 mmol/L (3.5-5.5); Sodium 138 mmol/L (135-145)
[2023-07-31] MEDS: PANTOPRAZOLE 40 MG/10 ML VIAL IVP SCH ×2 (08:59→22:51)
[2023-07-31] MEDS ORDERED: Potassium Replacement Protocol 1 EACH MISC MISCELLANE PRN (09:37)
[2023-07-31] MEDS ORDERED: HEPARIN SODIUM,PORCINE 5,000 UNIT/ML 1 ML VIAL SQ PRN (09:51)
[2023-07-31] MEDS: POTASSIUM CHLORIDE ER 20 MEQ TAB.ER PO SCH ×3 (10:46→14:37)
[2023-07-31 12:28] LABS: Glucose,Whole Blood 176 mg/dL (70-110)
[2023-07-31 16:45] LABS: Glucose,Whole Blood 134 mg/dL (70-110)
[2023-07-31] MEDS ORDERED: HEPARIN SODIUM,PORCINE/PF 5,000 UNIT/0.5 ML SYRINGE SQ ONE (16:46)
[2023-07-31] MEDS ORDERED: LACTATED RINGERS 1,000 ML IV ONE ×2 (16:58→18:45)
[2023-07-31] MEDS ORDERED: DEXAMETHASONE SOD PHOSPHATE 4 MG/ML 1 ML VIAL IVP ONE (16:59)
[2023-07-31] MEDS ORDERED: ONDANSETRON 4 MG/2 ML VIAL IVP ONE (16:59)
[2023-07-31] MEDS ORDERED: LIDOCAINE 1% INJ 10MG/ML (20 ML MDV) ONE (17:50)
[2023-07-31] MEDS ORDERED: GLYCOPYRROLATE 0.2 MG/ML 2 ML VIAL ONE (17:50)
[2023-07-31] MEDS ORDERED: fentaNYL (PF) 50 MCG/ML 2 ML AMP ONE (17:50)
[2023-07-31] MEDS ORDERED: LIDOCAINE 4% LTA KIT (4 ML) TOPICAL ONE (17:50)
[2023-07-31] MEDS ORDERED: SUCCINYLCHOLINE CHLORIDE 200 MG/10 ML VIAL IV ONE (17:50)
[2023-07-31] MEDS ORDERED: NEOSTIGMINE 1 MG/ML 10 ML VIAL ONE (17:50)
[2023-07-31] MEDS ORDERED: PROPOFOL 10 MG/ML 20 ML VIAL IV ONE (17:50)
[2023-07-31] MEDS ORDERED: HYDROmorphone (PF) 1 MG/ML ONE (17:50)
[2023-07-31] MEDS ORDERED: MIDAZOLAM 2 MG/2 ML VIAL ONE (17:50)
[2023-07-31] MEDS ORDERED: ROCURONIUM 10 MG/ML (5 ML VIAL) IV ONE (17:50)
[2023-07-31] MEDS ORDERED: KETOROLAC 15 MG/ML 1 ML VIAL ONE (17:50)
[2023-07-31] MEDS ORDERED: LIDOCAINE 2%-EPI 1:100,000 20 ML VIAL SQ ONE (18:17)
[2023-07-31] MEDS ORDERED: ENALAPRILAT 1.25 MG/ML 1 ML VIAL IVP ONE (19:30)
--- NOTE | 2023-07-31 19:37 | P.OP ---
Date of Procedure: 07/31/23 Description of Procedure: SURGEON: LASHAWN ZAPATA MD PREOPERATIVE DIAGNOSES: 1. Gallstone pancreatitis 2. Epigastric and right upper quadrant abdominal pain 3. Diabetes type 2, insulin-dependent 4. Hypertensive heart disease 5. Recent history of acute blood loss anemia, GI bleed 6. Chronic obstructive pulmonary disease due to asthma 7. Seizure disorder 8. Migraine 9. Kidney stone 10. Biliary dyskinesia with chronic cholecystitis 11. Family history gallbladder disease POSTOPERATIVE DIAGNOSES: 1. Gallstone pancreatitis 2. Epigastric and right upper quadrant abdominal pain 3. Diabetes type 2, insulin-dependent 4. Hypertensive heart disease 5. Recent history of acute blood loss anemia, GI bleed 6. Chronic obstructive pulmonary disease due to asthma 7. Seizure disorder 8. Migraine 9. Kidney stone 10. Biliary dyskinesia with chronic cholecystitis 11. Family history gallbladder disease OPERATION: Robotic-assisted da See Xi laparoscopic cholecystectomy, multiport with FIREFLY ESTIMATED BLOOD LOSS: 10 mL. SPECIMENS REMOVED: Gallbladder. COMPLICATIONS: None. OPERATIVE FINDINGS: 1. Scarring over gallbladder with peritoneal adhesions, pericholecystic with features of chronic cholecystitis INDICATIONS: The patient is a 43-year-old female who presents with gallstone pancreatitis, biliary dyskinesia or chronic cholecystitis acutely. Robotic assisted laparoscopic approach was described. Benefits and risks of the procedure including but not limited to bleeding, infection, injury to the biliary tree was described. Informed consent was obtained. DESCRIPTION OF PROCEDURE: Patient was brought to the operating room, placed in supine position. After general induction, the abdomen had been prepped and draped in standard sterile fashion. The robotic da See XI system was primed. After a timeout protocol was performed, the patient had been prepped and draped in standard sterile fashion. The patient was injected with indocyanine green. A 5 mm 0 degrees laparoscopic trocar entry was performed along the left upper quadrant. The abdomen insufflated to 15 mmHg pressure which was tolerated well. Diagnostic laparoscopy demonstrated no injury to bowel viscera or mesentery. The liver surface was unremarkable. Next, two 8 mm robotic ports were placed along the right upper abdomen. The camera 8-mm port was maintained along the epigastrium. Another 8 mm port was placed along the left upper abdominal wall after exchanging the 5 mm port. Please note that the ports were placed at least 10 to 15 cm away from the target anatomy of the gallbladder. The robot was docked along the left lateral abdomen. The patient was repositioned in reverse Trendelenburg position. Using a grasper for arm 3, a grasper for arm 4, including hook cautery for arm 1, the robotic system was docked and primed as described. Instruments were interchanged by the gift shop assistant including hook cautery, Bovie cautery and clip appliers. I had sat at the console. The gallbladder was scarred with peritoneal adhesions. Lysis of adhesions was performed to free the gallbladder from the surrounding tissues. Next attention was brought to the infundibulum and cystic structures. The infundibulum and cystic duct were dissected free from surrounding tissues. The cystic duct was isolated. FIREFLY was used to identify the cystic artery and cystic structures. A critical view of safety was obtained. Large PLASTIC clips were used throughout the entire case. Using a clip sales support assistant, 2 clips were placed at the junction of the infundibulum and cystic duct. The cystic duct was divided between clips. Next, the cystic artery was similarly clipped and cauterized. Electro-Bovie cautery was used to remove the gallbladder from the hepatic fossa. Hemostasis was checked and found to be adequate. The robot was undocked. I re-scrubbed into the case. Using a 10 mm Endo Catch bag via the left upper quadrant incision, the specimen was removed from the abdominal cavity. All pneumoperitoneum instruments were evacuated from the abdominal cavity. The incisions were reapproximated using 4-0 Monocryl in an interrupted subcuticular fashion. Fascial defects were less than 8 mm in size. Please note along the trocar sites, local anesthetic was placed as a field block prior to insertion of all instruments. Liquid glue was applied to the skin. At the end of the procedure needle, sponge, and instrument count had been verified correct by the surfacing technician. The patient was transferred to postanesthesia care unit in stable condition. Intraoperative films were shared with the patient's family.
[2023-07-31 19:40] LABS: Glucose,Whole Blood 195 mg/dL (70-110)
[2023-07-31 20:21] LABS: Glucose,Whole Blood 184 mg/dL (70-110)
--- NOTE | 2023-08-01 05:40 | P.CONS ---
History of Present Illness - Reason for Consult Consult date: 07/31/23 - History of Present Illness Patient is a 43-year-old female who apparently was recently admitted to [facility] with a fever and the patient was diagnosed with a kidney infection patient did get a midline on 07/20/2023 and was advised a course of IV Rocephin with the patient scheduled to complete as of 08/07/2023 patient now presenting to [facility] about 6 days ago for evaluation of na usea vomiting and abdominal pain and the patient was able to keep anything down patient was described the pain to be mostly in the upper abdominal area describing it to be sharp with moderate intensity and without any radiation, with the symptoms patient was evaluated on presentation to the hospital patient was afebrile and no fever has been recorded subsequently patient did have a normal white count initially white count slightly low at 3.95 today did have a normal creatinine milligrams has been normal lipase was 803 amylase was normal urine has been mildly positive ureteroscopy positive for opiates patient did have abdominal pelvis CT no significant acute findings seen for the patient's sy mptoms gallbladder ultrasound gallstone started otherwise normal study patient did have a HIDA scan no evidence of cystic duct or common bile duct obstruction gallbladder dyskinesia with EF of 21% patient has been evaluated general surgery planning for cholecystectomy this afternoon General surgery was consulted today for the management of her antibiotics the patient is receiving for septic stone and pyelonephritis Past Medical History Past Medical History: Asthma, Diabetes Mellitus, GI Bleed, Seizure Disorder Additional Past Medical History / Comment(s): NIDDM type II, [place] seizure once in 2017, lower GI bleed, mild diverticular dx, PCOS, bronchitis, pneumonia, migraines, allergic rhinitis. Kidney stones History of Any Multi-Drug Resistant Organisms: MRSA, None Reported Year Discovered:: 2011 MDRO Source:: Lungs Past Surgical History: Section, Tubal Ligation Additional Past Surgical History / Comment(s): colonoscopies, R groin mole removed then resected d/t abnormal cells-bening. Past Anesthesia/Blood Transfusion Reactions: No Reported Reaction Past Psychological History: No Psychological Hx Reported Additional Psychological History / Comment(s): Pt resides with her 2 children. Pt is independent. She drives. Smoking Status: Never smoker Past Alcohol Use History: Rare Additional Past Alcohol Use History / Comment(s): Patient is a lifelong nonsmoker. She denies any marijuana or street drug use. She drink alcohol rarely. She lives at home and has 3 children under the age of 19. She is a single parent. Past Drug Use History: None Reported - Past Family History Father Family Medical History: Cancer Additional Family Medical History / Comment(s): COLON, MELANOMA ON HIS CHEST AND HE ALSO HAS BENIGN BRAIN TUMORS 2, diabetes, pancreatic cancer. FATHER IS 68 YRS OLD. Mother Family Medical History: Cancer, Dialysis Additional Family Medical History / Comment(s): MELANOMA THAT METASTASIZED TO THE BRAIN- FROM AT AGE 49 YRS. Mother had an [place] at age 34 and history of diabetes. Patient has many aunts, uncles and nieces with diabetes on her mother 's side. Brother(s) Additional Family Medical History / Comment(s): Patient has one half-brother and one full brother with no major medical problems. Patient has 1 sister with no major medical problems. Daughter(s) Additional Family Medical History / Comment(s): Patient has 2 daughters and her youngest daughter has history of seizure disorder. Patient has one son with no major medical problems. Medications and Allergies Home Medications Medication Instructions Recorded Confirmed Type Albuterol Inhaler [Ventolin Hfa 1 - 2 puff INHALATION RT-Q6H PRN 04/15/17 07/25/23 History Inhaler] HYDROcodone/APAP 10-325MG [[place] 1 tab PO Q6H PRN 01/14/18 07/25/23 History 10-325] Biotin [Stab-Qrvx-Aajpy] 20,000 mcg PO DAILY 03/26/23 07/25/23 History Cholecalciferol [Vitamin D3 (25 25 mcg PO HS 03/26/23 07/25/23 History Mcg = 1000 Iu)] Ibuprofen [Advil] 400 mg PO BID PRN 03/26/23 07/25/23 History Loratadine [Claritin] 10 mg PO DAILY 03/26/23 07/25/23 History Rosuvastatin Calcium 40 mg PO DAILY 03/26/23 07/25/23 History Propranolol [Inderal] 20 mg PO DAILY 03/27/23 07/25/23 History Cyclobenzaprine [Flexeril] 10 mg PO HS 07/10/23 07/25/23 History Glucagon Emergency Kit 1 mg IM ONCE PRN 07/10/23 07/25/23 History INSULIN LISPRO (humaLOG) [humaLOG] See Protocol SQ AC-TID 07/10/23 07/25/23 History Insulin Detemir [Levemir Flexpen] 24 units SQ DAILY 07/10/23 07/25/23 History Naproxen [Naprosyn] 500 mg PO BID PRN 07/10/23 07/25/23 History Famotidine [Pepcid] 20 mg PO BID PRN 07/25/23 07/25/23 History Naloxone HCl [Narcan] 4 mg NASAL ONCE PRN 07/25/23 07/25/23 History Ondansetron Odt [Zofran Odt] 4 mg PO TID PRN 07/25/23 07/25/23 History Pantoprazole [Protonix] 40 mg PO AC-BID 07/25/23 07/25/23 History Tamsulosin [Flomax] 0.4 mg PO DAILY 07/25/23 07/25/23 History Topiramate [Topamax] 100 mg PO BID 07/25/23 07/25/23 History cefTRIAXone [Rocephin] 1 gm IVPB DAILY 07/25/23 07/25/23 History oxyBUTYnin chloride [Ditropan] 5 mg PO BID PRN 07/25/23 07/25/23 History Allergies Allergy/AdvReac Type Severity Reaction Status Date / Time codeine AdvReac Nausea & Verified 07/31/23 16:28 Vomiting morphine AdvReac Nausea & Verified 07/31/23 16:28 Vomiting Penicillins AdvReac Nausea & Verified 07/31/23 16:28 Vomiting Sulfa (Sulfonamide AdvReac Nausea & Verified 07/31/23 16:28 Antibiotics) Vomiting tramadol AdvReac Unknown Verified 07/31/23 16:28 Physical Exam Vitals: Vital Signs Temp Pulse Resp BP Pulse Ox 07/31/23 14:49 98.3 F 81 16 163/91 99 07/31/23 07:00 98.4 F 84 16 163/91 100 07/31/23 00:51 98.1 F 88 18 170/90 99 07/30/23 20:34 98.3 F 86 18 162/88 99 Intake and Output 07/31/23 07/31/23 07/31/23 06:59 14:59 22:59 Intake Total 0 Balance 0 Intake: Oral 0 Other: # Voids 2 3 Results CBC & Chem 7: 07/31/23 06:05 07/31/23 06:05 Labs: Abnormal Lab Results - Last 24 Hours (Table) 07/30/23 07/30/23 07/31/23 Range/Units 17:45 21:35 06:05 WBC 3.95 L (4.50-10.00) X 10*3/uL RBC 3.02 L (4.10-5.20) X 10*6/uL Hgb 8.5 L (12.0-15.0) g/dL Hct 25.4 L (37.2-46.3) % RDW 14.9 H (11.5-14.5) % Potassium (3.5-5.5) mmol/L BUN (9.0-27.0) mg/dL Glucose (70-110) mg/dL POC Glucose (mg/dL) 168 H 225 H (70-110) mg/dL 07/31/23 07/31/23 07/31/23 Range/Units 06:05 06:26 12:27 WBC (4.50-10.00) X 10*3/uL RBC (4.10-5.20) X 10*6/uL Hgb (12.0-15.0) g/dL Hct (37.2-46.3) % RDW (11.5-14.5) % Potassium 3.4 L (3.5-5.5) mmol/L BUN 7.5 L (9.0-27.0) mg/dL Glucose 180 H (70-110) mg/dL POC Glucose (mg/dL) 197 H 176 H (70-110) mg/dL Assessment and Plan Plan: 1patient with recent admission to hospital with sepsis secondary to kidney stone and pyelonephritis with admission at [facility] currently on IV Rocephin, we will try to obtain culture data from [facility] 2-patient admitted to the hospital with abdominal pain concerning for possible gallstone pancreatitis and had low EF on the HIDA scan 3-patient to continue with Rocephin 1 g daily to finish a course of therapy 4-check inflammatory markers We will follow on clinical condition and cultures to further adjust medication if needed Thank you for this consultation we will follow the patient along with you Dictation was produced using [employer] dictation software. please excuse any grammatical, word or spelling errors. Time with Patient: Greater than 30
--- NOTE | 2023-08-01 05:45 | P.PN ---
Subjective Progress Note Date: 07/31/23 43-year-old female presenting with chief complaint of nausea vomiting and abdominal pain. Patient was recently admitted to our facility on 07/10 with urosepsis and stone as well as suspected upper GI bleeding. Patient has history of gastric ulcers due to prolonged NSAID use. Patient was transferred to [facility] because we did not have GI services. She states that she underwent a scope, she does not believe that any interventions were performed. She was started on Protonix. Septic stone was removed and patient was sent home on ceftriaxone. Today the patient has been unable to keep down any foods or liquids. She has been unable to keep down her medications as well. She admits to epigastric pain. No coffee ground emesis or dark tarry stool. No chest pain or difficulty breathing. Hemoglobin 9.8, which is stable from previous value. Lipase 803. Glucose 340. Anion gap 15 carbon dioxide 19. Urine shows moderate leukocytes with 6 RBCs and 24 WBCs, patient is currently on Rocephin at home for recent septic kidney stone. Positive acetone, likely secondary to vomiting. Urine only shows trace ketones. Patient will be admitted and treated for pancreatitis. Negative CT of the abdomen and pelvis. -- Patient continues to complain of persistent nausea; has been taking Dilaudid 1 mg every 4 hours [id number] -- Lipase is within normal limits - We will back off on IV pain medications and change Dilaudid to 0.5 mg every 6 hours when necessary; start patient on a full liquid diet and advance as tolerated - Patient continues to have intractable nausea and vomiting; still not able to eat or drink anything -- Patient has been evaluated by surgery and is recommended EGD 07/29/2023 Patient is seen and evaluated in follow-up this morning reporting severe nausea and has been dry heaving and underwent EGD showing grade B erosive esophagitis with no active duodenitis and no stigmata of bleeding and scheduled to undergo gallbladder ultrasound along with HIDA scan. Patient continues to report significant abdominal pain reporting her pain is not controlled and will adjust medications. Patient also with continued nausea will add and adjust nausea medications. Hemoglobin is stable above 8 with no active bleeding noted and general surgery awaiting further testing for additional recommendations. Patient is afebrile denies chest pain or shortness of breath. Patient reports currently not eating anything and not tolerating. 07/30/2023 Patient seen in follow-up this morning continues with abdominal pain and tenderness with nausea. Vomiting has somewhat subsided and continue with antinausea medications. General surgery following the patient underwent HIDA scan gallbladder ultrasound showing sludge as well as dyskinesia and discussing possible plans of laparoscopic cholecystectomy. Patient is currently afebrile with no reported chest pain or shortness of breath. Recommend just ice chips for now medication and patient will be nothing by mouth at midnight with possible surgical intervention being planned. We'll follow up on repeat labs and replace electrolytes per protocol his potassium remains low as well as magnesium. 07/31/2023 Patient is seen in follow-up this morning with general surgery following plans for gallbladder surgery awaiting OR availability. Patient's potassium has slightly improved and 3.4 and will continue with IV hydration with potassium added as well as supplementation. Magnesium improved after supplementation at 1.9 today. Patient continues with abdominal discomfort and nausea awaiting surgical intervention. Patient is afebrile with no reported chest pain or shortness of breath. Review of systems: Constitutional: No reports of fatigue, fever, or chills Cardiovascular: No reports of chest pain or palpitations Respiratory: No reports of shortness of breath or cough GI: reports of nausea, with no vomiting, no diarrhea, and continued abdominal pain : No reports of dysuria or retention Neurovascular: reports of generalized weakness All medications have been reviewed Physical exam: Gen: This is a 43-year-old female who is awake, alert and oriented 3, thin built, elderly appearing, ill appearing HEENT: Head is atraumatic, normocephalic. Pupils equal, round. Sclerae is anicteric. NECK: Supple. No JVD. No lymphadenopathy. No thyromegaly. LUNGS: Clear to auscultation. No wheezes or rhonchi. No intercostal retractions. HEART: Regular rate and rhythm. No murmur. ABDOMEN: Soft. Tender, thin, Bowel sounds are present. No masses. EXTREMITIES: No pedal edema. No calf tenderness. NEUROLOGICAL: Patient is awake, alert and oriented x3. Cranial nerves 2 through 12 are grossly intact. Assessment: -Acute pancreatitis, secondary to gallstone pancreatitis -Abdominal pain possibly secondary to gallbladder dyskinesia as noted on HIDA scan and ultrasound with sludge noted as well -Recent diagnosis of Septic kidney stone at [facility] and sent home on IV antibiotics and will continue -Anemia; history of GI bleed; history of diverticulosis; no active bleeding; hemoglobin at baseline -Seizure disorder history -Diabetes mellitus, type II, insulin-dependent -Asthma; not in exacerbation -Hyperlipidemia - Hypertension -Moderate protein calorie malnutrition with a BMI of 21.4 -Grade B erosive esophagitis on EGD - GI prophylaxis -DVT prophylaxis; SCDs -Full code Plan: Patient will be continued on IV hydration with potassium supplementation added and replace electrolytes per protocol. Potassium was 3.4 and magnesium 1.9 today Gallbladder ultrasound along with HIDA scan showing some dyskinesia along with sludge with plans for possible laparoscopic cholecystectomy today. Will await Holter report Hemoglobin is stable above 8 and will continue to monitor with follow-up labs in a.m. No active bleeding noted an EGD showed grade B erosive esophagitis Patient not tolerating much oral intake and will follow-up with repeat amylase/lipase Patient continues to report severe pain of the abdomen will continue current pain medications, wean IV pain medications after surgery Encouraged increased activity as tolerated Continue ceftriaxone as she was discharged from [facility] for a septic stone on IV antibiotics outpatient. Infectious disease consulted and appreciate input recommendations this patient is requesting to discontinue the antibiotics and have the PICC line removed. Case management following as well and patient is to continue on IV antibiotics until 08/07/2023 Encouraged to increase activity as tolerated Will await surgical clearance to discuss discharge planning Due to multiple complex medical issues, prognosis is guarded The impression and plan of care has been dictated by Nicole Moncada, Nurse Practitioner as directed. Dr. José MD I have performed a history and examination and MDM of this patient, discussed the same with the dictator, and agree with the dictator's assessment and plan as written ,documented as a scribe. Based on total visit time, I have performed more than 50% of the visit. Objective - Vital Signs Vital signs: Vital Signs Temp 98.4 F 07/31/23 07:00 Pulse 84 07/31/23 07:00 Resp 16 07/31/23 07:00 BP 163/91 07/31/23 07:00 Pulse Ox 100 07/31/23 07:00 FiO2 Intake & Output 07/30/23 07/31/23 07/31/23 18:59 06:59 18:59 Intake Total 0 Balance 0 Intake: Oral 0 Other: Voiding Method Toilet # Voids 2 2 - Labs CBC & Chem 7: 07/31/23 06:05 07/31/23 06:05 Labs: Abnormal Lab Results - Last 24 Hours (Table) 07/30/23 07/30/23 07/30/23 Range/Units 06:36 06:36 12:10 WBC 4.33 L (4.50-10.00) X 10*3/uL RBC 3.21 L (4.10-5.20) X 10*6/uL Hgb 8.9 L (12.0-15.0) g/dL Hct 27.3 L (37.2-46.3) % RDW 14.9 H (11.5-14.5) % Potassium 3.1 L (3.5-5.5) mmol/L Carbon Dioxide 20.4 L (21.6-31.8) mmol/L Anion Gap 16.60 H (4.00-12.00) mmol/L BUN (9.0-27.0) mg/dL Glucose 144 H (70-110) mg/dL POC Glucose (mg/dL) 136 H (70-110) mg/dL Magnesium 1.4 L (1.5-2.4) mg/dL 07/30/23 07/30/23 07/31/23 Range/Units 17:45 21:35 06:05 WBC 3.95 L (4.50-10.00) X 10*3/uL RBC 3.02 L (4.10-5.20) X 10*6/uL Hgb 8.5 L (12.0-15.0) g/dL Hct 25.4 L (37.2-46.3) % RDW 14.9 H (11.5-14.5) % Potassium (3.5-5.5) mmol/L Carbon Dioxide (21.6-31.8) mmol/L Anion Gap (4.00-12.00) mmol/L BUN (9.0-27.0) mg/dL Glucose (70-110) mg/dL POC Glucose (mg/dL) 168 H 225 H (70-110) mg/dL Magnesium (1.5-2.4) mg/dL 07/31/23 07/31/23 Range/Units 06:05 06:26 WBC (4.50-10.00) X 10*3/uL RBC (4.10-5.20) X 10*6/uL Hgb (12.0-15.0) g/dL Hct (37.2-46.3) % RDW (11.5-14.5) % Potassium 3.4 L (3.5-5.5) mmol/L Carbon Dioxide (21.6-31.8) mmol/L Anion Gap (4.00-12.00) mmol/L BUN 7.5 L (9.0-27.0) mg/dL Glucose 180 H (70-110) mg/dL POC Glucose (mg/dL) 197 H (70-110) mg/dL Magnesium (1.5-2.4) mg/dL
[2023-08-01] MEDS: HYDROmorphone 0.5 MG/0.5 ML SYRINGE IVP PRN ×4 (05:50→21:45)
[2023-08-01] MEDS: ONDANSETRON 4 MG/2 ML VIAL IVP PRN ×2 (05:51→11:24)
[2023-08-01] MEDS: 0.9% NACL WITH KCL 20 MEQ/L 1,000 ML IV SCH (05:54)
[2023-08-01 05:59] LABS: Glucose,Whole Blood 108 mg/dL (70-110)
[2023-08-01] MEDS: INSULIN ASPART (NovoLOG) 100 UNIT/ML VIAL SQ SCH ×4 (06:01→21:44)
[2023-08-01 08:27] LABS: ALT 27 U/L (8-44); AST 29 U/L (13-35); Albumin 3.4 g/dL (3.8-4.9); Albumin/Globulin Ratio 1.13 Ratio (1.60-3.17); Alkaline Phosphatase 90 U/L (41-126); BUN/Creat Ratio 13.67 Ratio (12.00-20.00); Basophils # (A) 0.05 X 10*3/uL (0.00-0.10); Blood Urea Nitrogen 8.2 mg/dL (9.0-27.0); Calcium 9.8 mg/dL (8.7-10.3); Carbon Dioxide 19.6 mmol/L (21.6-31.8); Chloride 103 mmol/L (96-109); Eosinophils # (A) 0.02 X 10*3/uL (0.04-0.35); Eosinophils % (A) 0.4 %; Glucose 110 mg/dL (70-110); HCT 28.2 % (37.2-46.3); HGB 9.3 g/dL (12.0-15.0); Lipase 61 U/L (14-63); Lymphocytes # (A) 1.46 X 10*3/uL (0.90-5.00); Lymphocytes % (A) 29.6 %; MCH 28.1 pg (27.0-32.0); MCV 85.2 FL (80.0-97.0); Magnesium 1.6 mg/dL (1.5-2.4); Mean Platelet Volume 9.7 FL (9.5-12.2); Monocytes # (A) 0.61 X 10*3/uL (0.20-1.00); Monocytes % (A) 12.3 %; NRBC Per 100 WBC 0 X 10*3/uL (0.00-0.01); Neutrophils # (A) 2.79 X 10*3/uL (1.80-7.70); Neutrophils % (A) 56.5 %; Platelet Count 288 X 10*3/uL (140-440); RBC 3.31 X 10*6/uL (4.10-5.20); RDW 15.6 % (11.5-14.5); Sodium 137 mmol/L (135-145); Total Bilirubin 0.2 mg/dL (0.3-1.2); Total Protein 6.4 g/dL (6.2-8.2); WBC 4.94 X 10*3/uL (4.50-10.00)
[2023-08-01] MEDS: TOPIRAMATE 100 MG TAB PO SCH ×2 (09:07→21:45)
[2023-08-01] MEDS: PANTOPRAZOLE 40 MG/10 ML VIAL IVP SCH ×2 (09:07→21:44)
[2023-08-01] MEDS: PROPRANOLOL 20 MG TAB PO SCH (09:07)
[2023-08-01] MEDS: TAMSULOSIN 0.4 MG CAP.ER.24H PO SCH (09:07)
[2023-08-01] MEDS: ACETAMINOPHEN TAB 500 MG TAB PO SCH ×3 (09:11→21:45)
[2023-08-01] MEDS ORDERED: Magnesium Replacement Protocol 1 EACH MISC MISCELLANE PRN (09:39)
--- NOTE | 2023-08-01 11:02 | P.PN ---
Subjective Progress Note Date: 08/01/23 CHIEF COMPLAINT: Recent gastrointestinal bleeding HISTORY OF PRESENT ILLNESS: Patient status post robotic-assisted laparoscopic cholecystectomy. Patient is lying in bed comfortably. She reports her pain is controlled. She tolerated diet. She has been up and ambulating. She is having flatus. Denies any difficulty urinating. Afebrile. WBC 4.94 HGB 9.3 platelets 288 03/16/1939 potassium 4.0 creatinine 0.6 total bilirubin 0.2 AST 29 ALT 27 alk phos 90 lipase 61 PHYSICAL EXAM: VITAL SIGNS: Reviewed GENERAL: Well-developed in no acute distress. HEENT: No sclera icterus. Extraocular movements grossly intact. Moist buccal mucosa. Head is atraumatic, normocephalic. Hears conversational speech. No nasal drainage. NECK: Supple without lymphadenopathy. CHEST: Non-labored respirations and equal bilateral excursions. CARDIOVASCULAR: Palpable 2+ radial pulses. ABDOMEN: Soft. Nondistended. Incision sites clean dry and intact MUSCULOSKELETAL: No clubbing or cyanosis. NEUROLOGIC: No focal or lateralizing signs. Cranial nerves II through XII grossly intact. PSYCH: Appropriate affect. Alert and oriented to person, place and time. SKIN: Well perfused. Good skin turgor. ASSESSMENT: 1. Gallstone pancreatitis 2. Epigastric and right upper quadrant abdominal pain 3. Diabetes type 2, insulin-dependent 4. Hypertensive heart disease 5. Recent history of acute blood loss anemia, GI bleed 6. Chronic obstructive pulmonary disease due to asthma 7. Seizure disorder 8. Migraine 9. Kidney stone 10. Biliary dyskinesia with chronic cholecystitis 11. Family history gallbladder disease 12. Erosive esophagitis on EGD PLAN: -Patient can be discharged from surgical standpoint when medically cleared -Continue regular diet, consistent carbohydrate -Tylenol added for oral pain medication -Patient can shower Physician Rehab Therapy Manager note has been reviewed by physician. Signing provider agrees with the documented findings, assessment, and plan of care. Objective - Vital Signs Vital signs: Vital Signs Temp 98.9 F 08/01/23 07:00 Pulse 97 08/01/23 07:00 Resp 20 08/01/23 07:00 BP 152/90 08/01/23 07:00 Pulse Ox 99 08/01/23 07:00 FiO2 Intake & Output 07/31/23 08/01/23 08/01/23 18:59 06:59 18:59 Intake Total 1200 200 120 Output Total 10 Balance 1190 200 120 Intake: IV 1200 200 Oral 0 120 Output: Estimated Blood Loss 10 Other: Voiding Method Toilet # Voids 3 1 - Labs CBC & Chem 7: 08/01/23 06:09 08/01/23 06:09 Labs: Abnormal Lab Results - Last 24 Hours (Table) 07/31/23 07/31/23 07/31/23 Range/Units 12:27 16:44 19:35 RBC (4.10-5.20) X 10*6/uL Hgb (12.0-15.0) g/dL Hct (37.2-46.3) % RDW (11.5-14.5) % Eosinophils # (0.04-0.35) X 10*3/uL Carbon Dioxide (21.6-31.8) mmol/L Anion Gap (4.00-12.00) mmol/L BUN (9.0-27.0) mg/dL POC Glucose (mg/dL) 176 H 134 H 195 H (70-110) mg/dL Total Bilirubin (0.3-1.2) mg/dL Albumin (3.8-4.9) g/dL Albumin/Globulin Ratio (1.60-3.17) Ratio 07/31/23 08/01/23 08/01/23 Range/Units 20:19 06:09 06:09 RBC 3.31 L (4.10-5.20) X 10*6/uL Hgb 9.3 L (12.0-15.0) g/dL Hct 28.2 L (37.2-46.3) % RDW 15.6 H (11.5-14.5) % Eosinophils # 0.02 L (0.04-0.35) X 10*3/uL Carbon Dioxide 19.6 L (21.6-31.8) mmol/L Anion Gap 14.40 H (4.00-12.00) mmol/L BUN 8.2 L (9.0-27.0) mg/dL POC Glucose (mg/dL) 184 H (70-110) mg/dL Total Bilirubin 0.2 L (0.3-1.2) mg/dL Albumin 3.4 L (3.8-4.9) g/dL Albumin/Globulin Ratio 1.13 L (1.60-3.17) Ratio
[2023-08-01] MEDS: MAGNESIUM SULFATE-D5W PMX 1 GM in DEXTROSE/WATER 1 100ML.BAG IVPB SCH ×2 (11:24→12:19)
[2023-08-01] MEDS: SODIUM CHLORIDE 0.9% 1,000 ML IV SCH (11:26)
[2023-08-01 12:07] LABS: Glucose,Whole Blood 171 mg/dL (70-110)
[2023-08-01 13:06] VITALS: BMI 21.4
--- NOTE | 2023-08-01 13:30 | P.PN ---
Subjective Progress Note Date: 08/01/23 Principal diagnosis: Reason for follow-up is right-sided pyelonephritis/complicated UTI Patient is a 43-year-old female who apparently was recently admitted to [facility] for sepsis secondary to right-sided pyelonephritis with right sided ureteral stone and did have bacteremia for the patient was advised a two-week course of Rocephin and the patient is currently receiving readmitted to the hospital concerning for abdominal pain, in this patient status post laparoscopic hysterectomy completed on 07/31/2023 On today's evaluation and that is08/01/2023, the patient remains to be afebrile , the patient is breathing comfortably on room air and denies any shortness of breath, the patient denies chest pain or cough , patient abdominal pain has decreased in intensity some nausea but no vomiting and no diarrhea. Patient white count is 4.4, creatinine 0.6 Objective - Vital Signs Vital signs: Vital Signs Temp 98.9 F 08/01/23 07:00 Pulse 97 08/01/23 07:00 Resp 20 08/01/23 07:00 BP 152/90 08/01/23 07:00 Pulse Ox 99 08/01/23 07:00 FiO2 Intake & Output 07/31/23 08/01/23 08/01/23 18:59 06:59 18:59 Intake Total 1200 200 120 Output Total 10 Balance 1190 200 120 Intake: IV 1200 200 Oral 0 120 Output: Estimated Blood Loss 10 Other: Voiding Method Toilet # Voids 3 1 - Exam GENERAL DESCRIPTION: Middle-aged female lying in bed in no distress RESPIRATORY SYSTEM: Unlabored breathing , clear to auscultation anteriorly HEART: S1 S2 regular rate and rhythm , ABDOMEN: Soft , mild tenderness EXTREMITIES: No edema feet - Labs CBC & Chem 7: 08/01/23 06:09 08/01/23 06:09 Labs: Abnormal Lab Results - Last 24 Hours (Table) 07/31/23 07/31/23 07/31/23 Range/Units 12:27 16:44 19:35 RBC (4.10-5.20) X 10*6/uL Hgb (12.0-15.0) g/dL Hct (37.2-46.3) % RDW (11.5-14.5) % Eosinophils # (0.04-0.35) X 10*3/uL Carbon Dioxide (21.6-31.8) mmol/L Anion Gap (4.00-12.00) mmol/L BUN (9.0-27.0) mg/dL POC Glucose (mg/dL) 176 H 134 H 195 H (70-110) mg/dL Total Bilirubin (0.3-1.2) mg/dL Albumin (3.8-4.9) g/dL Albumin/Globulin Ratio (1.60-3.17) Ratio 07/31/23 08/01/23 08/01/23 Range/Units 20:19 06:09 06:09 RBC 3.31 L (4.10-5.20) X 10*6/uL Hgb 9.3 L (12.0-15.0) g/dL Hct 28.2 L (37.2-46.3) % RDW 15.6 H (11.5-14.5) % Eosinophils # 0.02 L (0.04-0.35) X 10*3/uL Carbon Dioxide 19.6 L (21.6-31.8) mmol/L Anion Gap 14.40 H (4.00-12.00) mmol/L BUN 8.2 L (9.0-27.0) mg/dL POC Glucose (mg/dL) 184 H (70-110) mg/dL Total Bilirubin 0.2 L (0.3-1.2) mg/dL Albumin 3.4 L (3.8-4.9) g/dL Albumin/Globulin Ratio 1.13 L (1.60-3.17) Ratio Assessment and Plan (1) Pyelonephritis Current Visit: Yes Status: Acute Code(s): N12 - TUBULO-INTERSTITIAL NEPHRITIS, NOT SPCF ACUTE OR CHRONIC SNOMED Code(s): 65664639 (2) Allergy to multiple antibiotics Current Visit: Yes Status: Acute Code(s): Z88.1 - ALLERGY STATUS TO OTHER ANTIBIOTIC AGENTS SNOMED Code(s): 327359357 Plan: 1patient with recent admission to hospital with sepsis secondary to kidney stone and pyelonephritis with admission at [facility] currently on IV Rocephin, we will try to obtain culture data from [facility] 2-patient admitted to the hospital with abdominal pain concerning for possible gallstone pancreatitis and had low EF on the HIDA scan: Patient is status post laparoscopic cholecystectomy on 07/31/2020 3-patient to continue with Rocephin 1 g daily and monitor clinical course closely Dictation was produced using [employer] dictation software. please excuse any grammatical, word or spelling errors. Time with Patient: Less than 30
[2023-08-01] MEDS ORDERED: MAG HYDROX/AL HYDROX/SIMETH 30 ML CUP PO PRN (15:04)
[2023-08-01 17:43] LABS: Glucose,Whole Blood 202 mg/dL (70-110)
[2023-08-01 20:03] LABS: Glucose,Whole Blood 215 mg/dL (70-110)
[2023-08-01] MEDS ORDERED: HYDROcodone/APAP 10-325MG 1 EACH TAB PO PRN (20:29)
--- NOTE | 2023-08-01 20:35 | P.PN ---
Subjective Progress Note Date: 08/01/23 43-year-old female presenting with chief complaint of nausea vomiting and abdominal pain. Patient was recently admitted to our facility on 07/10 with urosepsis and stone as well as suspected upper GI bleeding. Patient has history of gastric ulcers due to prolonged NSAID use. Patient was transferred to [facility] because we did not have GI services. She states that she underwent a scope, she does not believe that any interventions were performed. She was started on Protonix. Septic stone was removed and patient was sent home on ceftriaxone. Today the patient has been unable to keep down any foods or liquids. She has been unable to keep down her medications as well. She admits to epigastric pain. No coffee ground emesis or dark tarry stool. No chest pain or difficulty breathing. Hemoglobin 9.8, which is stable from previous value. Lipase 803. Glucose 340. Anion gap 15 carbon dioxide 19. Urine shows moderate leukocytes with 6 RBCs and 24 WBCs, patient is currently on Rocephin at home for recent septic kidney stone. Positive acetone, likely secondary to vomiting. Urine only shows trace ketones. Patient will be admitted and treated for pancreatitis. Negative CT of the abdomen and pelvis. -- Patient continues to complain of persistent nausea; has been taking Dilaudid 1 mg every 4 hours [id number] -- Lipase is within normal limits - We will back off on IV pain medications and change Dilaudid to 0.5 mg every 6 hours when necessary; start patient on a full liquid diet and advance as tolerated - Patient continues to have intractable nausea and vomiting; still not able to eat or drink anything -- Patient has been evaluated by surgery and is recommended EGD 07/29/2023 Patient is seen and evaluated in follow-up this morning reporting severe nausea and has been dry heaving and underwent EGD showing grade B erosive esophagitis with no active duodenitis and no stigmata of bleeding and scheduled to undergo gallbladder ultrasound along with HIDA scan. Patient continues to report significant abdominal pain reporting her pain is not controlled and will adjust medications. Patient also with continued nausea will add and adjust nausea medications. Hemoglobin is stable above 8 with no active bleeding noted and general surgery awaiting further testing for additional recommendations. Patient is afebrile denies chest pain or shortness of breath. Patient reports currently not eating anything and not tolerating. 07/30/2023 Patient seen in follow-up this morning continues with abdominal pain and tenderness with nausea. Vomiting has somewhat subsided and continue with antinausea medications. General surgery following the patient underwent HIDA scan gallbladder ultrasound showing sludge as well as dyskinesia and discussing possible plans of laparoscopic cholecystectomy. Patient is currently afebrile with no reported chest pain or shortness of breath. Recommend just ice chips for now medication and patient will be nothing by mouth at midnight with possible surgical intervention being planned. We'll follow up on repeat labs and replace electrolytes per protocol his potassium remains low as well as magnesium. 07/31/2023 Patient is seen in follow-up this morning with general surgery following plans for gallbladder surgery awaiting OR availability. Patient's potassium has slightly improved and 3.4 and will continue with IV hydration with potassium added as well as supplementation. Magnesium improved after supplementation at 1.9 today. Patient continues with abdominal discomfort and nausea awaiting surgical intervention. Patient is afebrile with no reported chest pain or shortness of breath. 08/01/2023 Patient is seen in follow-up this morning initially per nursing staff was having improved abdominal pain although on exam patient is reporting abdominal pain with some nausea and has not attempted a diet as of yet. Patient is sipping water with no vomiting. Patient's diet has been advanced and patient has been cleared by surgery for discharge. Patient is status post laparoscopic cholecystectomy. Will adjust pain medications and resume oral Outing that she takes at home. Recommend limiting IV narcotic use. Patient has been encouraged to increase activity as tolerated. Patient is afebrile maintained on antibiotic s and infectious disease following evaluated recommending to continue ceftriaxone as scheduled and to complete the course that is set to finish on 08/07/2023 from [facility] orders for septic kidney stone. Discharge planning in process forc the next 24 hours. Review of systems: Constitutional: No reports of fatigue, fever, or chills Cardiovascular: No reports of chest pain or palpitations Respiratory: No reports of shortness of breath or cough GI: reports of nausea, with no vomiting, no diarrhea, and continued abdominal pain : No reports of dysuria or retention Neurovascular: reports of generalized weakness All medications have been reviewed Physical exam: Gen: This is a 43-year-old female who is awake, alert and oriented 3, thin built, elderly appearing, ill appearing HEENT: Head is atraumatic, normocephalic. Pupils equal, round. Sclerae is anicteric. NECK: Supple. No JVD. No lymphadenopathy. No thyromegaly. LUNGS: Clear to auscultation. No wheezes or rhonchi. No intercostal retractions. HEART: Regular rate and rhythm. No murmur. ABDOMEN: Soft. Tender, thin, Bowel sounds are present. No masses. EXTREMITIES: No pedal edema. No calf tenderness. NEUROLOGICAL: Patient is awake, alert and oriented x3. Cranial nerves 2 through 12 are grossly intact. Assessment: -Acute pancreatitis, secondary to gallstone pancreatitis status post laparoscopic cholecystectomy -Abdominal pain possibly secondary to gallbladder dyskinesia as noted on HIDA scan and ultrasound with sludge noted as well -Recent diagnosis of Septic kidney stone at [facility] and sent home on IV anti biotics and will continue till 08/07/2023 as scheduled -Anemia; history of GI bleed; history of diverticulosis; no active bleeding; hemoglobin at baseline -Seizure disorder history -Diabetes mellitus, type II, insulin-dependent -Asthma; not in exacerbation -Hyperlipidemia - Hypertension -Moderate protein calorie malnutrition with a BMI of 21.4 -Grade B erosive esophagitis on EGD - GI prophylaxis -DVT prophylaxis; SCDs -Full code Plan: Patient will be continued on IV hydration and potassium is improved at 4.0 today. Magnesium is 1.6 and will replace and continue on normal saline hydration. Encourage small frequent meals and increase diet to advance as tolerated. Patient has been resumed on regular diet per surgery and cleared for discharge planning. Patient is status post laparoscopic cholecystectomy Patient not tolerating much oral intake and instructed patient to slowly advance as tolerated and just continue with water and very small frequent meals with bland diet Repeat labs ordered for a.m. Patient continues to report pain of the abdomen and will adjust medications as per nursing staff patient has been requesting IV pain medications. Will resume oral Outing she chronically takes at home and recommend to limit IV Dilaudid use Encouraged increased activity as tolerated Continue ceftriaxone as she was discharged from [facility] for a septic stone on IV antibiotics outpatient. Infectious disease consulted recommend to continue with midline and to continue on IV antibiotics until course is complete as prescribed on 08/07/2023. Case management following and has sent to home care as well. Due to multiple complex medical issues, prognosis is guarded Possible discharge in 24 hours The impression and plan of care has been dictated by Nicole Moncada, Nurse Practitioner as directed. Dr. José MD I have performed a history and examination and MDM of this patient, discussed the same with the dictator, and agree with the dictator's assessment and plan as written ,documented as a scribe. Based on total visit time, I have performed more than 50% of the visit. Objective - Vital Signs Vital signs: Vital Signs Temp 98.9 F 08/01/23 07:00 Pulse 97 08/01/23 07:00 Resp 20 08/01/23 07:00 BP 152/90 08/01/23 07:00 Pulse Ox 99 08/01/23 07:00 FiO2 Intake & Output 07/31/23 08/01/23 08/01/23 18:59 06:59 18:59 Intake Total 1200 200 120 Output Total 10 Balance 1190 200 120 Intake: IV 1200 200 Oral 0 120 Output: Estimated Blood Loss 10 Other: Voiding Method Toilet # Voids 3 1 - Labs CBC & Chem 7: 08/01/23 06:09 08/01/23 06:09 Labs: Abnormal Lab Results - Last 24 Hours (Table) 07/31/23 07/31/23 07/31/23 Range/Units 12:27 16:44 19:35 RBC (4.10-5.20) X 10*6/uL Hgb (12.0-15.0) g/dL Hct (37.2-46.3) % RDW (11.5-14.5) % Eosinophils # (0.04-0.35) X 10*3/uL Carbon Dioxide (21.6-31.8) mmol/L Anion Gap (4.00-12.00) mmol/L BUN (9.0-27.0) mg/dL POC Glucose (mg/dL) 176 H 134 H 195 H (70-110) mg/dL Total Bilirubin (0.3-1.2) mg/dL Albumin (3.8-4.9) g/dL Albumin/Globulin Ratio (1.60-3.17) Ratio 07/31/23 08/01/23 08/01/23 Range/Units 20:19 06:09 06:09 RBC 3.31 L (4.10-5.20) X 10*6/uL Hgb 9.3 L (12.0-15.0) g/dL Hct 28.2 L (37.2-46.3) % RDW 15.6 H (11.5-14.5) % Eosinophils # 0.02 L (0.04-0.35) X 10*3/uL Carbon Dioxide 19.6 L (21.6-31.8) mmol/L Anion Gap 14.40 H (4.00-12.00) mmol/L BUN 8.2 L (9.0-27.0) mg/dL POC Glucose (mg/dL) 184 H (70-110) mg/dL Total Bilirubin 0.2 L (0.3-1.2) mg/dL Albumin 3.4 L (3.8-4.9) g/dL Albumin/Globulin Ratio 1.13 L (1.60-3.17) Ratio
[2023-08-02] MEDS: ACETAMINOPHEN TAB 500 MG TAB PO SCH ×2 (02:18→10:20)
[2023-08-02] MEDS: SODIUM CHLORIDE 0.9% 1,000 ML IV SCH (02:19)
[2023-08-02 02:32] VITALS: PULSE 92
[2023-08-02] MEDS: HYDROmorphone 0.5 MG/0.5 ML SYRINGE IVP PRN (04:14)
[2023-08-02] MEDS: ONDANSETRON 4 MG/2 ML VIAL IVP PRN (04:14)
[2023-08-02 06:19] LABS: Glucose,Whole Blood 165 mg/dL (70-110)
[2023-08-02] MEDS: INSULIN ASPART (NovoLOG) 100 UNIT/ML VIAL SQ SCH ×2 (06:53→13:14)
[2023-08-02 09:09] VITALS: BP 168/99; RESP 17; TEMP 98.2
[2023-08-02] MEDS: PROPRANOLOL 20 MG TAB PO SCH (10:14)
[2023-08-02] MEDS: TOPIRAMATE 100 MG TAB PO SCH (10:14)
[2023-08-02] MEDS: PANTOPRAZOLE 40 MG/10 ML VIAL IVP SCH (10:20)
[2023-08-02] MEDS: TAMSULOSIN 0.4 MG CAP.ER.24H PO SCH (10:20)
[2023-08-02 10:51] LABS: Basophils # (A) 0.06 X 10*3/uL (0.00-0.10); Basophils % (A) 1.3 %; Eosinophils # (A) 0.13 X 10*3/uL (0.04-0.35); Eosinophils % (A) 2.8 %; HCT 26.5 % (37.2-46.3); HGB 8.8 g/dL (12.0-15.0); Lymphocytes # (A) 1.25 X 10*3/uL (0.90-5.00); Lymphocytes % (A) 26.5 %; MCH 28.1 pg (27.0-32.0); MCHC 33.2 g/dL (32.0-37.0); MCV 84.7 FL (80.0-97.0); Mean Platelet Volume 9.6 FL (9.5-12.2); Monocytes # (A) 0.53 X 10*3/uL (0.20-1.00); Monocytes % (A) 11.2 %; NRBC Per 100 WBC 0 X 10*3/uL (0.00-0.01); Neutrophils # (A) 2.74 X 10*3/uL (1.80-7.70); Platelet Count 241 X 10*3/uL (140-440); RBC 3.13 X 10*6/uL (4.10-5.20); RDW 15.6 % (11.5-14.5); WBC 4.72 X 10*3/uL (4.50-10.00)
[2023-08-02 11:12] LABS: Amylase 32 U/L (23-121); Lipase 84 U/L (14-63); Magnesium 1.8 mg/dL (1.5-2.4)
[2023-08-02 11:15] LABS: ALT 24 U/L (8-44); AST 20 U/L (13-35); Albumin 3.3 g/dL (3.8-4.9); Albumin/Globulin Ratio 1.18 Ratio (1.60-3.17); Alkaline Phosphatase 85 U/L (41-126); BUN/Creat Ratio 10.83 Ratio (12.00-20.00); Blood Urea Nitrogen 6.5 mg/dL (9.0-27.0); Calcium 9.8 mg/dL (8.7-10.3); Carbon Dioxide 21.6 mmol/L (21.6-31.8); Chloride 101 mmol/L (96-109); Globulin 2.8 g/dL (1.6-3.3); Glucose 181 mg/dL (70-110); Potassium 3.5 mmol/L (3.5-5.5); Sodium 135 mmol/L (135-145); Total Bilirubin 0.2 mg/dL (0.3-1.2); Total Protein 6.1 g/dL (6.2-8.2)
--- NOTE | 2023-08-02 12:37 | P.PN ---
Subjective Progress Note Date: 08/02/23 CHIEF COMPLAINT: Recent gastrointestinal bleeding HISTORY OF PRESENT ILLNESS: Patient status post robotic-assisted laparoscopic cholecystectomy. Patient is lying in bed comfortably. Patient reports she is feeling better. No further nausea. She is tolerating diet. She is having flatus. She has been up and ambulating. She feels ready for discharge. Afebrile. WBC 4.7 to Hgb 8.8 PHYSICAL EXAM: VITAL SIGNS: Reviewed GENERAL: Well-developed in no acute distress. HEENT: No sclera icterus. Extraocular movements grossly intact. Moist buccal mucosa. Head is atraumatic, normocephalic. Hears conversational speech. No nasal drainage. NECK: Supple without lymphadenopathy. CHEST: Non-labored respirations and equal bilateral excursions. CARDIOVASCULAR: Palpable 2+ radial pulses. ABDOMEN: Soft. Nondistended. Incision sites clean dry and intact MUSCULOSKELETAL: No clubbing or cyanosis. NEUROLOGIC: No focal or lateralizing signs. Cranial nerves II through XII grossly intact. PSYCH: Appropriate affect. Alert and oriented to person, place and time. SKIN: Well perfused. Good skin turgor. ASSESSMENT: 1. Gallstone pancreatitis 2. Epigastric and right upper quadrant abdominal pain 3. Diabetes type 2, insulin-dependent 4. Hypertensive heart disease 5. Recent history of acute blood loss anemia, GI bleed 6. Chronic obstructive pulmonary disease due to asthma 7. Seizure disorder 8. Migraine 9. Kidney stone 10. Biliary dyskinesia with chronic cholecystitis 11. Family history gallbladder disease 12. Erosive esophagitis on EGD PLAN: -Patient can be discharged from surgical standpoint when medically cleared -Continue regular diet, consistent carbohydrate -Tylenol added for oral pain medication Physician Range Feeder note has been reviewed by physician. Signing provider agrees with the documented findings, assessment, and plan of care. Objective - Vital Signs Vital signs: Vital Signs Temp 98.2 F 08/02/23 07:00 Pulse 92 08/02/23 07:00 Resp 17 08/02/23 07:00 BP 168/99 08/02/23 07:00 Pulse Ox 99 08/02/23 07:00 FiO2 Intake & Output 08/01/23 08/02/23 08/02/23 18:59 06:59 18:59 Intake Total 472 Balance 472 Weight 53.07 kg Intake: Oral 472 Other: # Voids 1 2 - Labs CBC & Chem 7: 08/02/23 06:00 08/02/23 06:00 Labs: Abnormal Lab Results - Last 24 Hours (Table) 08/01/23 08/01/23 08/02/23 Range/Units 17:41 19:59 06:00 RBC (4.10-5.20) X 10*6/uL Hgb (12.0-15.0) g/dL Hct (37.2-46.3) % RDW (11.5-14.5) % Anion Gap 12.40 H (4.00-12.00) mmol/L BUN 6.5 L (9.0-27.0) mg/dL BUN/Creatinine Ratio 10.83 L (12.00-20.00) Ratio Glucose 181 H (70-110) mg/dL POC Glucose (mg/dL) 202 H 215 H (70-110) mg/dL Total Bilirubin 0.2 L (0.3-1.2) mg/dL Total Protein 6.1 L (6.2-8.2) g/dL Albumin 3.3 L (3.8-4.9) g/dL Albumin/Globulin Ratio 1.18 L (1.60-3.17) Ratio Lipase 84 H (14-63) U/L 08/02/23 08/02/23 Range/Units 06:00 06:17 RBC 3.13 L (4.10-5.20) X 10*6/uL Hgb 8.8 L (12.0-15.0) g/dL Hct 26.5 L (37.2-46.3) % RDW 15.6 H (11.5-14.5) % Anion Gap (4.00-12.00) mmol/L BUN (9.0-27.0) mg/dL BUN/Creatinine Ratio (12.00-20.00) Ratio Glucose (70-110) mg/dL POC Glucose (mg/dL) 165 H (70-110) mg/dL Total Bilirubin (0.3-1.2) mg/dL Total Protein (6.2-8.2) g/dL Albumin (3.8-4.9) g/dL Albumin/Globulin Ratio (1.60-3.17) Ratio Lipase (14-63) U/L
--- NOTE | 2023-08-02 13:22 | P.PN ---
Subjective Progress Note Date: 08/02/23 Principal diagnosis: Reason for follow-up is right-sided pyelonephritis/complicated UTI Patient is a 43-year-old female who apparently was recently admitted to [facility] for sepsis secondary to right-sided pyelonephritis with right sided ureteral stone and did have bacteremia for the patient was advised a two-week course of Rocephin and the patient is currently receiving readmitted to the hospital concerning for abdominal pain, in this patient status post laparoscopic hysterectomy completed on 07/31/2023 On today's evaluation and that is 08/02/2023 the patient denies having any fever or any chills, the patient is breathing comfortably on room air patient abdominal pain has decreased in intensity some nausea but no vomiting no chest pain shortness of breath or cough and no diarrhea. The patient did have white count of 4.72, creatinine 0.63 Objective - Vital Signs Vital signs: Vital Signs Temp 98.2 F 08/02/23 07:00 Pulse 92 08/02/23 07:00 Resp 17 08/02/23 07:00 BP 168/99 08/02/23 07:00 Pulse Ox 99 08/02/23 07:00 FiO2 Intake & Output 08/01/23 08/02/23 08/02/23 18:59 06:59 18:59 Intake Total 472 Balance 472 Weight 53.07 kg Intake: Oral 472 Other: # Voids 1 2 - Exam GENERAL DESCRIPTION: Middle-aged female lying in bed in no distress RESPIRATORY SYSTEM: Unlabored breathing , clear to auscultation anteriorly HEART: S1 S2 regular rate and rhythm , ABDOMEN: Soft , mild tenderness EXTREMITIES: No edema feet - Labs CBC & Chem 7: 08/02/23 06:00 08/02/23 06:00 Labs: Abnormal Lab Results - Last 24 Hours (Table) 08/01/23 08/01/23 08/01/23 Range/Units 12:05 17:41 19:59 RBC (4.10-5.20) X 10*6/uL Hgb (12.0-15.0) g/dL Hct (37.2-46.3) % RDW (11.5-14.5) % POC Glucose (mg/dL) 171 H 202 H 215 H (70-110) mg/dL 11/17/23 11/17/23 Range/Units 06:00 06:17 RBC 3.13 L (4.10-5.20) X 10*6/uL Hgb 8.8 L (12.0-15.0) g/dL Hct 26.5 L (37.2-46.3) % RDW 15.6 H (11.5-14.5) % POC Glucose (mg/dL) 165 H (70-110) mg/dL Assessment and Plan (1) Pyelonephritis Current Visit: Yes Status: Acute Code(s): N12 - TUBULO-INTERSTITIAL NEPHRITIS, NOT SPCF ACUTE OR CHRONIC SNOMED Code(s): 34107457 (2) Allergy to multiple antibiotics Current Visit: Yes Status: Acute Code(s): Z88.1 - ALLERGY STATUS TO OTHER A NTIBIOTIC AGENTS SNOMED Code(s): 042090537 Plan: 1patient with recent admission to hospital with sepsis secondary to kidney stone and pyelonephritis with admission at [facility] currently on IV Rocephin, we will try to obtain culture data from [facility] 2-patient admitted to the hospital with abdominal pain concerning for possible gallstone pancreatitis and had low EF on the HIDA scan: Patient is status post laparoscopic cholecystectomy on 07/31/2020 3-Patient is slowly clinically improving the patient remains to be afebrile White count is normal she will continue with Rocephin 1 g daily to finish a course of therapy questions were answered Dictation was produced using [employer] dictation software. please excuse any grammatical, word or spelling errors. Time with Patient: Less than 30
--- NOTE | 2023-08-02 14:40 | P.DS ---
Providers Date of admission: 07/26/23 02:00 Expected date of discharge: 08/02/23 Attending physician: Margie Ayala MD Consults: 07/27/23 14:02 Consult Physician Routine Consulting Provider: Evelyn Craven Consult Reason/Comments: abd pain/pancreatitis Do you want consulting provider notified?: Yes 07/31/23 09:52 Consult Physician Routine Consulting Provider: [facility] Consult Reason/Comments: [facility] Do you want consulting provider notified?: Yes 07/31/23 14:24 Consult Physician Urgent Consulting Provider: Tahmina Tolentino Consult Reason/Comments: recently at [facility] and has picc line with outpatient abx/ are they needed Do you want consulting provider notified?: Yes Primary care physician: Rivera RamirezJosee [place] [facility] Course: Final diagnosis -Acute pancreatitis, secondary to gallstone pancreatitis status post laparoscopic cholecystectomy -Abdominal pain possibly secondary to gallbladder dyskinesia as noted on HIDA scan and ultrasound with sludge noted as well -Recent diagnosis of Septic kidney stone at [facility] and sent home on IV antibiotics and will continue till 08/07/2023 as scheduled -Anemia; history of GI bleed; history of diverticulosis; no active bleeding; hemoglobin at baseline -Seizure disorder history -Diabetes mellitus, type II, insulin-dependent -Asthma; not in exacerbation -Hyperlipidemia - Hypertension -Moderate protein calorie malnutrition with a BMI of 21.4 -Grade B erosive esophagitis on EGD - GI prophylaxis -DVT prophylaxis; SCDs -Full code Discharge disposition Patient is being discharged in a stable condition with guarded prognosis to home with continued home care . Patient will follow-up with Dr. Tripp in the outpatient setting upon discharge. Patient is to continue with IV antibiotics in the form of ceftriaxone until 08/07/2023 per [facility] discharge as scheduled. Total time taken is greater than 35 minutes. Hospital course This is a 43-year-old female who was recently admitted with acute pancreatitis most likely home pancreatitis underwent EGD as well as ultrasound of the gallbladder showing sludge and poor functioning with general surgery following recommending laparoscopic cholecystectomy. Patient underwent laparoscopic cholecystectomy and doing well tolerating diet and is passing gas. Patient has been cleared by general surgery and will follow-up outpatient. Patient was continued on IV antibiotics with a midline of the left upper extremity from [facility] from recent hospitalization 2 weeks ago for septic kidney stone. Please refer to surgery notes for further HPI. Patient was requesting Dilaudid on discharge and has been instructed to follow-up with pain management Dr. Acuna as well as primary care provider. Currently no reports of chest pain, shortness of breath, or palpitations. Patient is afebrile. No reports of nausea or vomiting and patient is tolerating diet. Patient will be discharged home today. Guarded prognosis and high risk for readmissions given patient's significant comorbidities and noncompliance. Physical exam: Gen: This is a 43-year-old female is awake, alert and oriented 3, well- developed, thin built, cachectic, appears much older than stated age HEENT: Head is atraumatic, normocephalic. Pupils equal, round. Sclerae is anicteric. NECK: Supple. No JVD. No lymphadenopathy. No thyromegaly. LUNGS: Clear to auscultation. No wheezes or rhonchi. No intercostal retractions. HEART: Regular rate and rhythm. No murmur. ABDOMEN: Soft. Bowel sounds are present. No masses. Mildly tender on palpation EXTREMITIES: No pedal edema. No calf tenderness. NEUROLOGICAL: Patient is awake, alert and oriented x3. Cranial nerves 2 through 12 are grossly intact. Please refer to medication reconciliation sheet for a list of medications. The impression and plan of care has been dictated by Nicole Moncada, Nurse Practitioner as directed. Dr. José MD I have performed a history and examination and MDM of this patient, discussed the same with the dictator, and agree with the dictator's assessment and plan as written ,documented as a scribe. Based on total visit time, I have performed more than 50% of the visit. Patient Condition at Discharge: Stable Plan - Discharge Summary New Discharge Prescriptions: New Acetaminophen Tab [Tylenol] 1,000 mg PO Q6H tab Continue Albuterol Inhaler [Ventolin Hfa Inhaler] 1 - 2 puff INHALATION RT-Q6H PRN PRN Reason: Shortness Of Breath HYDROcodone/APAP 10-325MG [Gibbon 10-325] 1 tab PO Q6H PRN PRN Reason: Pain Loratadine [Claritin] 10 mg PO DAILY Ibuprofen [Advil] 400 mg PO BID PRN PRN Reason: Pain Naproxen [Naprosyn] 500 mg PO BID PRN PRN Reason: Pain INSULIN LISPRO (humaLOG) [humaLOG] See Protocol SQ AC-TID Topiramate [Topamax] 100 mg PO BID cefTRIAXone [Rocephin] 1 gm IVPB DAILY #0 Rosuvastatin Calcium 40 mg PO DAILY Biotin [Lcvg-Rgoh-Pfolx] 20,000 mcg PO DAILY Cholecalciferol [Vitamin D3 (25 Mcg = 1000 Iu)] 25 mcg PO HS Propranolol [Inderal] 20 mg PO DAILY Cyclobenzaprine [Flexeril] 10 mg PO HS Insulin Detemir [Levemir Flexpen] 24 units SQ DAILY Glucagon Emergency Kit 1 mg IM ONCE PRN PRN Reason: Hypocalcemia Tamsulosin [Flomax] 0.4 mg PO DAILY Pantoprazole [Protonix] 40 mg PO AC-BID oxyBUTYnin chloride [Ditropan] 5 mg PO BID PRN PRN Reason: BLADDER SPASMS Naloxone HCl [Narcan] 4 mg NASAL ONCE PRN PRN Reason: O.D. Famotidine [Pepcid] 20 mg PO BID PRN PRN Reason: Heartburn Ondansetron Odt [Zofran ODT] 4 mg PO TID PRN PRN Reason: Nausea Discharge Medication List Albuterol Inhaler [Ventolin Hfa Inhaler] 1 - 2 puff INHALATION RT-Q6H PRN 04/15/17 [History] HYDROcodone/APAP 10-325MG [Gibbon 10-325] 1 tab PO Q6H PRN 01/14/18 [History] Biotin [Tkcd-Yexf-Hkdtl] 20,000 mcg PO DAILY 03/26/23 [History] Cholecalciferol [Vitamin D3 (25 Mcg = 1000 Iu)] 25 mcg PO HS 03/26/23 [History] Ibuprofen [Advil] 400 mg PO BID PRN 03/26/23 [History] Loratadine [Claritin] 10 mg PO DAILY 03/26/23 [History] Rosuvastatin Calcium 40 mg PO DAILY 03/26/23 [History] Propranolol [Inderal] 20 mg PO DAILY 03/27/23 [History] Cyclobenzaprine [Flexeril] 10 mg PO HS 07/10/23 [History] Glucagon Emergency Kit 1 mg IM ONCE PRN 07/10/23 [History] INSULIN LISPRO (humaLOG) [humaLOG] See Protocol SQ AC-TID 07/10/23 [History] Insulin Detemir [Levemir Flexpen] 24 units SQ DAILY 07/10/23 [History] Naproxen [Naprosyn] 500 mg PO BID PRN 07/10/23 [History] Famotidine [Pepcid] 20 mg PO BID PRN 07/25/23 [History] Naloxone HCl [Narcan] 4 mg NASAL ONCE PRN 07/25/23 [History] Ondansetron Odt [Zofran ODT] 4 mg PO TID PRN 07/25/23 [History] Pantoprazole [Protonix] 40 mg PO AC-BID 07/25/23 [History] Tamsulosin [Flomax] 0.4 mg PO DAILY 07/25/23 [History] Topiramate [Topamax] 100 mg PO BID 07/25/23 [History] oxyBUTYnin chloride [Ditropan] 5 mg PO BID PRN 07/25/23 [History] Acetaminophen Tab [Tylenol] 1,000 mg PO Q6H tab 08/02/23 [Rx] cefTRIAXone [Rocephin] 1 gm IVPB DAILY #0 08/02/23 [Rx] Follow up Appointment(s)/Referral(s): [facility], [NON-STAFF] - As Needed Evelyn Craven MD [STAFF PHYSICIAN] - 08/06/23 [facility] [REFERRING] - As Needed ([facility] will continue to supply and manage your in home IV antibiotics as ordered prior to admission. ) Rivera Tripp DO [Primary Care Provider] - 1-2 days Patient Instructions/Handouts: *Surgery [facility] - Laparoscopic Cholecystectomy Discharge Instructions, *[facility] - Managing Your Pain After Surgery Without Opioids Activity/Diet/Wound Care/Special Instructions: Activity Limited until follow-up Follow-up with primary care provider on discharge Follow-up with general surgery outpatient Follow-up neurology outpatient Continue current diet and slowly advance as tolerated Monitor blood sugars and keep a diary of all readings Telehealth visit with Dr. Craven on Saturday08/06/23 Discharge Disposition: HOME WITH HOME HEALTH SERVICES
== END 2023-08-02 13:47 | disposition home health service (06) | DRG 263 ==
LOC: EC 17:37 → OBSVTOIN 07-26 02:00 → 6NMEDSUR 07-26 02:00
PROVIDERS: ADMIT Internal Medicine; ATTEND Internal Medicine
PROC: 0DJ08ZZ Inspection of Upper Intestinal Tract, Via Natural or Artificial Opening Endoscopic (ICD-10-PCS; 2023-07-29)
PROC: 8E0W4CZ Robotic Assisted Procedure of Trunk Region, Percutaneous Endoscopic Approach (ICD-10-PCS; 2023-07-31)
PROC: BF532Z0 Other Imaging of Gallbladder and Bile Ducts using Fluorescing Agent, Intraoperative (ICD-10-PCS; 2023-07-31)
PROC: 0FT44ZZ Resection of Gallbladder, Percutaneous Endoscopic Approach (ICD-10-PCS; principal; 2023-07-31 12:00)
DX: K85.10 Biliary acute pancreatitis without necrosis or infection (principal); E44.0 Moderate protein-calorie malnutrition; N12 Tubulo-interstitial nephritis, not specified as acute or chronic; D62 Acute posthemorrhagic anemia; K22.10 Ulcer of esophagus without bleeding; I11.9 Hypertensive heart disease without heart failure; G40.909 Epilepsy, unspecified, not intractable, without status epilepticus; E11.9 Type 2 diabetes mellitus without complications; J44.89 Other specified chronic obstructive pulmonary disease; G43.909 Migraine, unspecified, not intractable, without status migrainosus; E78.5 Hyperlipidemia, unspecified; K82.8 Other specified diseases of gallbladder; E83.42 Hypomagnesemia; E87.6 Hypokalemia; K81.1 Chronic cholecystitis; Z79.4 Long term (current) use of insulin; Z87.11 Personal history of peptic ulcer disease; Z68.21 Body mass index [BMI] 21.0-21.9, adult; Z88.5 Allergy status to narcotic agent; Z79.899 Other long term (current) drug therapy; Z79.1 Long term (current) use of non-steroidal anti-inflammatories (NSAID); Z88.1 Allergy status to other antibiotic agents; Z80.0 Family history of malignant neoplasm of digestive organs; Z88.0 Allergy status to penicillin; Z88.2 Allergy status to sulfonamides; Z86.69 Personal history of other diseases of the nervous system and sense organs; Z86.14 Personal history of Methicillin resistant Staphylococcus aureus infection; Z80.8 Family history of malignant neoplasm of other organs or systems; Z28.310 Unvaccinated for COVID-19; Z83.79 Family history of other diseases of the digestive system; Z87.891 Personal history of nicotine dependence; Z87.19 Personal history of other diseases of the digestive system; Z91.199 Patient's noncompliance with other medical treatment and regimen due to unspecified reason; Z86.19 Personal history of other infectious and parasitic diseases; Z87.440 Personal history of urinary (tract) infections; Z87.442 Personal history of urinary calculi
CPT/HCPCS: 36415; 43235; 74177; 76705; 78227; 80048; 80053; 80306; 81001; 81025; 82009; 82140; 82150; 83036; 83690; 83735; 84100; 85025; 88304; 93005; 96361; 96374; 96375; 96376; 99285

== ENCOUNTER → 2023-08-27 | Outpatient (CLI) | payer OTHER ==
[2023-08-27 15:45] LABS: Basophils # (A) 0.06 X 10*3/uL (0.00-0.10); Basophils % (A) 0.9 %; Eosinophils # (A) 0.38 X 10*3/uL (0.04-0.35); Eosinophils % (A) 5.5 %; HCT 31.1 % (37.2-46.3); HGB 9.9 g/dL (12.0-15.0); Lymphocytes # (A) 1.75 X 10*3/uL (0.90-5.00); Lymphocytes % (A) 25.3 %; MCH 27.4 pg (27.0-32.0); MCHC 31.8 g/dL (32.0-37.0); MCV 86.1 FL (80.0-97.0); Mean Platelet Volume 10.1 FL (9.5-12.2); Monocytes # (A) 0.74 X 10*3/uL (0.20-1.00); Monocytes % (A) 10.7 %; NRBC Per 100 WBC 0 X 10*3/uL (0.00-0.01); Neutrophils # (A) 3.98 X 10*3/uL (1.80-7.70); Neutrophils % (A) 57.3 %; Platelet Count 404 X 10*3/uL (140-440); RBC 3.61 X 10*6/uL (4.10-5.20); RDW 13.2 % (11.5-14.5); WBC 6.93 X 10*3/uL (4.50-10.00)
[2023-08-27 15:50] LABS: BUN/Creat Ratio 10.14 Ratio (12.00-20.00); Blood Urea Nitrogen 7.1 mg/dL (9.0-27.0); Calcium 10.9 mg/dL (8.7-10.3); Carbon Dioxide 27.5 mmol/L (21.6-31.8); Chloride 94 mmol/L (96-109); Glucose 410 mg/dL (70-110); Potassium 4.8 mmol/L (3.5-5.5); Sodium 132 mmol/L (135-145)
== END | disposition home or self-care (01) ==
LOC: LABPAT 08:06
PROVIDERS: ATTEND Urology
DX: Z01.812 Encounter for preprocedural laboratory examination (principal); N20.1 Calculus of ureter
CPT/HCPCS: 36415; 80048; 85025

== ENCOUNTER 2023-09-03 09:39 | Day surgery (SDC) | payer OTHER ==
[~2023-09-03 09:39] MED LIST changes: +HYDROmorphone 0.5 MG/0.5 ML SYRINGE IVP PRN; -LACTATED RINGERS 1,000 ML IV SCH; +MIDAZOLAM 2 MG/2 ML VIAL IV PRN; -droPERidol 5 MG/2 ML VIAL IVP ONE; -fentaNYL (PF) 50 MCG/ML 2 ML AMP IV PRN
[2023-09-03] MEDS: LACTATED RINGERS 1,000 ML IV SCH ×2 (10:11→11:50)
[2023-09-03 10:35] LABS: Glucose,Whole Blood 279 mg/dL (70-110)
[2023-09-03] MEDS ORDERED: INSULIN ASPART (NovoLOG) 100 UNIT/ML VIAL SQ ONE (10:43)
[2023-09-03 10:49] VITALS: RESP 16
--- NOTE | 2023-09-03 10:50 | XR ---
EXAMINATION TYPE: XR KUB DATE OF EXAM: 09/03/2023 9:58 AM CLINICAL INDICATION:Female, 43 years old with history of OR; [facility] COMPARISON: None. TECHNIQUE: Supine radiographic view/s of the abdomen/pelvis obtained. FINDINGS: Left double-J ureteral stent appears in the appropriate position. No definite calculi are seen along the stent. Evaluation limited by overlying bowel contents however small renal calculi cannot be exclu ded. Moderate stool and some gas throughout the colon. No gas distended loops of small bowel. No evid ence of pneumoperitoneum on this supine exam. No acute bony abnormalities. IMPRESSION: Left double-J ureteral stent appears in the appropriate position. Moderate colonic stool. Nonobstructive bowel gas pattern.
--- NOTE | 2023-09-03 11:35 | P.HPIHPCON ---
History of Present Illness H&P Date: 09/03/23 Chief Complaint: Ureteral stone This is a 43-year-old female with a history of a 7 mm left-sided proximal ureteral stone status post stent insertion at [facility] for septic stone presents today for left-sided ureteroscopy with holmium laser. Aware of the risk which includes but not limited to bleeding, infection, injury to the ureter. Risk of anesthesia was also discussed. She understood all the risk and agreed to proceed Consent for Procedure: I have explained the operation/procedure to the patient, including the risks, benefits, side effects, alternative therapies (including not receiving the proposed treatment or service), the likelihood of the patient achieving his/her goals, and potential recuperation problems for the procedure/sedation/analgesia, as well as any blood products, if indicated. I also explained to the patient the risks, benefits and side effects of the alternatives, as well as the risks related to not receiving the proposed procedure, care, treatment, or services. Past Medical History Past Medical History: Asthma, Diabetes Mellitus, Eye Disorder, GI Bleed, Pneumonia, Seizure Disorder Additional Past Medical History / Comment(s): 06/2023 pt transferred from [facility] to [facility] with acute upper GI bleed, acute blood loss anemia, kidney stone with infection and pt states infection was also "around my heart" and was sent home on IV antibiotics thru picc which she completed. She was then hospitalized at [facility] on 07/26/23 with pancreatitis and had a cholecystectomy. Other hx: IDDM type II, valvular problem, grand mall seizure once in 03/2023, mild diverticular dx, bronchitis, pneumonia, migraines, allergic rhinitis, kidney stones, surgery bilateral eyes for cats and macular degeneration. History of Any Multi-Drug Resistant Organisms: MRSA Date of last positivie culture/infection: 2011 MDRO Source:: Lungs Past Surgical History: Section, Tubal Ligation Additional Past Surgical History / Comment(s): EGD, picc line since removed, kidney stones removed surgically, R ureteral stent, bilateral eye cataract removals and mac degeneration, colonoscopies, R groin mole removed then resected d/t abnormal cells-bening. Past Anesthesia/Blood Transfusion Reactions: No Reported Reaction Smoking Status: Never smoker - Past Family History Father Family Medical History: Cancer Additional Family Medical History / Comment(s): COLON, MELANOMA ON HIS CHEST AND HE ALSO HAS BENIGN BRAIN TUMORS 2, diabetes, pancreatic cancer. FATHER IS alive. Mother Family Medical History: Cancer, Dialysis Additional Family Medical History / Comment(s): MELANOMA THAT METASTASIZED TO THE BRAIN- FROM AT AGE 49 YRS. Mother had an AK at age 34 with angioplasty at age 36 yrs and another AK, and history of diabetes. Patient has many aunts, uncles and nieces with diabetes on her mother's side. Brother(s) Additional Family Medical History / Comment(s): Patient has one half-brother with kidney stones, full brother with no major medical problems. Patient has 1 sister with no major medical problems. Daughter(s) Additional Family Medical History / Comment(s): Patient has 2 daughters and her youngest daughter has history of seizure disorder. Patient has one son with no major medical problems. Medications and Allergies Home Medications Medication Instructions Recorded Confirmed Type Albuterol Inhaler [Ventolin Hfa 1 - 2 puff INHALATION RT-Q6H PRN 04/15/17 09/03/23 History Inhaler] HYDROcodone/APAP 10-325MG [[place] 1 tab PO Q6H PRN 01/14/18 09/03/23 History 10-325] Cholecalciferol [Vitamin D3 (25 25 mcg PO HS 03/26/23 09/03/23 History Mcg = 1000 Iu)] Loratadine [Claritin] 10 mg PO QAM 03/26/23 09/03/23 History Rosuvastatin Calcium 40 mg PO QAM 03/26/23 09/03/23 History Propranolol [Inderal] 20 mg PO QAM 03/27/23 09/03/23 History Glucagon Emergency Kit 1 mg IM ONCE PRN 07/10/23 09/03/23 History INSULIN LISPRO (humaLOG) [humaLOG] See Protocol SQ AC-TID 07/10/23 09/03/23 History Insulin Detemir [Levemir Flexpen] 14 units SQ QAM 07/10/23 09/03/23 History Famotidine [Pepcid] 20 mg PO BID PRN 07/25/23 09/03/23 History Naloxone HCl [Narcan] 4 mg NASAL ONCE PRN 07/25/23 09/03/23 History Ondansetron Odt [Zofran ODT] 4 mg PO TID PRN 07/25/23 09/03/23 History oxyBUTYnin chloride [Ditropan] 5 mg PO BID PRN 07/25/23 09/03/23 History Acetaminophen Tab [Tylenol] 1,000 mg PO Q6H PRN 08/29/23 09/03/23 History levETIRAcetam [Keppra] 500 mg PO HS 08/29/23 09/03/23 History Allergies Allergy/AdvReac Type Severity Reaction Status Date / Time codeine AdvReac Nausea & Verified 09/03/23 10:14 Vomiting morphine AdvReac Nausea & Verified 09/03/23 10:14 Vomiting Penicillins AdvReac Nausea & Verified 09/03/23 10:14 Vomiting Sulfa (Sulfonamide AdvReac Nausea & Verified 09/03/23 10:14 Antibiotics) Vomiting tramadol AdvReac Unknown Verified 09/03/23 10:14 Surgical - Exam Vital Signs Temp Pulse Resp BP Pulse Ox 98 F 89 16 150/80 100 09/03/23 10:31 09/03/23 10:31 09/03/23 10:31 09/03/23 10:31 09/03/23 10:31 - General no distress, moderate pain - Eyes normal ocular movement, no pale - ENT normal nares, normal mucosa - Respiratory normal expansion, normal respiratory effort - Abdomen Abdomen: soft, non tender - Psychiatric oriented to time, oriented to person, oriented to place Results - Labs Abnormal Lab Results - Last 24 Hours (Table) 09/03/23 Range/Units 10:32 POC Glucose (mg/dL) 279 H (70-110) mg/dL Assessment and Plan Assessment: OR for left-sided ureteroscopy, holmium laser lithotripsy, stone basketing and stent removal
[2023-09-03] MEDS ORDERED: fentaNYL (PF) 50 MCG/ML 2 ML AMP ONE (11:46)
[2023-09-03] MEDS ORDERED: PROPOFOL 10 MG/ML 20 ML VIAL IV ONE (11:46)
[2023-09-03] MEDS ORDERED: SUCCINYLCHOLINE CHLORIDE 200 MG/10 ML VIAL IV ONE (11:46)
[2023-09-03] MEDS ORDERED: MIDAZOLAM 2 MG/2 ML VIAL ONE (11:46)
[2023-09-03] MEDS ORDERED: PHENYLEPHRINE-0.9% NACL SYG 1,000 MCG/10 ML SYRINGE ONE (11:46)
[2023-09-03] MEDS ORDERED: HYDROmorphone (PF) 1 MG/ML ONE (11:46)
[2023-09-03] MEDS ORDERED: ROCURONIUM 10 MG/ML (5 ML VIAL) IV ONE (11:46)
[2023-09-03] MEDS ORDERED: LIDOCAINE 1% INJ 10MG/ML (20 ML MDV) ONE (11:46)
[2023-09-03] MEDS: CIPROFLOXACIN/DEXTROSE PMX 400 MG in DEXTROSE/WATER 1 200ML.BAG IVPB PRN ×3 (11:51→12:35)
[2023-09-03] MEDS ORDERED: GENTAMICIN 80 MG in SODIUM CHLORIDE 0.9% 100 ML IVPB ONE (12:45)
[2023-09-03] MEDS ORDERED: SODIUM CHLORIDE 0.9% 100 ML with GENTAMICIN 80 MG IV ONE ×2 (13:02)
--- NOTE | 2023-09-03 13:35 | P.OP ---
Date of Procedure: 09/03/23 Preoperative Diagnosis: Left ureteral stone Postoperative Diagnosis: Same Procedure(s) Performed: Cystoscopy, left ureteroscopy, holmium laser lithotripsy, stone basketing and stent removal Implants: None Anesthesia: GILBERTO Surgeon: Jeff Davila Pathology: none sent Condition: stable Disposition: PACU Indications for Procedure: This is a 43-year-old female with a history of a 7 mm left-sided proximal ureteral stone status post stent insertion at [facility] for septic stone presents today for left-sided ureteroscopy with holmium laser. Aware of the risk which includes but not limited to bleeding, infection, injury to the ureter. Risk of anesthesia was also discussed. She understood all the risk and agreed to proceed Description of Procedure: Patient brought to the operating room, general anesthesia was induced. She was prepped and draped in sterile fashion and placed in dorsal lithotomy position. Cystoscopy fitted with 21-[place] sheath was inserted per urethra, cystoscopy was performed which showed no abnormality within the bladder. Next left ureteral orifice was visualized with the stent protruding from it, the stent was grasped and removed to the meatus, next a sensor wire was advanced through the stent and the stent was removed with the wire in place. Next under fluoroscopy 1113 Palestinian access sheath was passed over the wire into the proximal ureter. Next the flexible ureteroscope was inserted through the access sheath, renoscopy was performed which showed 2 large stones in the UPJ, using the holmium laser the stones were minimally fragmented given the appearance of struvite stones. Next maximal stone basketing was performed. Repeat cystoscopy showed no sizable fragments or injury to the kidney, pullback ureteroscopy was performed which showed no injury to the ureter or any ureteral stones, the bladder was emptied at the end of the case. Patient tolerated procedure well was taken to recovery in stable condition
[2023-09-03 13:56] LABS: Glucose,Whole Blood 183 mg/dL (70-110)
[2023-09-03 14:03] VITALS: TEMP 97
[2023-09-03] MEDS ORDERED: METOCLOPRAMIDE 5 MG/ML 2 ML VIAL IVP ONE (14:35)
[2023-09-03 14:54] VITALS: PULSE 87
[2023-09-03 15:20] VITALS: BP 122/80
--- NOTE | 2023-09-03 18:37 | FL ---
EXAMINATION TYPE: FL guidance operating room DATE OF EXAM: 09/03/2023 Comparison: 03/26/2023 Clinical History: 43-year-old female CYSTO LITHO Findings: RADHA FAITH FOR STONES, FL 5.8 SECS, AND DAP OF 0.06996 mGycm2. 3 images are provided. Impression: Procedural fluoroscopy as above.
== END 2023-09-03 15:35 | disposition home or self-care (01) ==
LOC: OR 09:39
PROVIDERS: ATTEND Urology
DX: N20.1 Calculus of ureter (principal); J45.909 Unspecified asthma, uncomplicated; E11.9 Type 2 diabetes mellitus without complications; J18.9 Pneumonia, unspecified organism; K92.2 Gastrointestinal hemorrhage, unspecified; G40.909 Epilepsy, unspecified, not intractable, without status epilepticus; G43.909 Migraine, unspecified, not intractable, without status migrainosus; K21.9 Gastro-esophageal reflux disease without esophagitis; Z90.49 Acquired absence of other specified parts of digestive tract; Z87.442 Personal history of urinary calculi; Z83.3 Family history of diabetes mellitus; Z80.8 Family history of malignant neoplasm of other organs or systems; Z79.1 Long term (current) use of non-steroidal anti-inflammatories (NSAID); Z79.51 Long term (current) use of inhaled steroids; Z79.4 Long term (current) use of insulin; Z79.899 Other long term (current) drug therapy; Z88.0 Allergy status to penicillin; Z88.2 Allergy status to sulfonamides; Z98.42 Cataract extraction status, left eye; Z98.41 Cataract extraction status, right eye; Z98.890 Other specified postprocedural states
CPT/HCPCS: 52356; 81025; 82365; 74018; C1758 ×4; C1894; C1769 ×3; J2250; J0330; J1580; J2765; J2405; J2001; J3010; J0744; J1170; J2704; J2371

== ENCOUNTER 2023-09-04 00:43 | Emergency (ER) | payer OTHER ==
[2023-09-04] MEDS ORDERED: SODIUM CHLORIDE 0.9% 1,000 ML IV STA (01:14)
[2023-09-04] MEDS ORDERED: METOCLOPRAMIDE 5 MG/ML 2 ML VIAL IVP STA (01:14)
[2023-09-04] MEDS ORDERED: HYDROmorphone 1 MG/ML 1 ML SYRINGE IVP STA ×2 (01:14→05:07)
[2023-09-04 01:40] LABS: Basophils # (A) 0.1 k/uL (0-0.2); Basophils % (A) 1 %; Eosinophils # (A) 0.2 k/uL (0-0.7); Eosinophils % (A) 2 %; HGB 10.7 gm/dL (11.4-16.0); Hypochromasia Slight; Lymphocytes % (A) 10 %; MCH 28.6 pg (25.0-35.0); MCHC 33.5 g/dL (31.0-37.0); MCV 85.5 fL (80.0-100.0); Mean Platelet Volume 7.3; Monocytes # (A) 0.4 k/uL (0-1.0); Monocytes % (A) 4 %; Neutrophils # (A) 7.9 k/uL (1.3-7.7); Neutrophils % (A) 82 %; Platelet Count 287 k/uL (150-450); RBC 3.75 m/uL (3.80-5.40); RDW 14.3 % (11.5-15.5); WBC 9.7 k/uL (3.8-10.6)
[2023-09-04 02:03] LABS: ALT 42 U/L (4-34); AST 32 U/L (14-36); African American GFR (CKD) >90 (>60 ml/min/1.73 sqM); Albumin 4.2 g/dL (3.5-5.0); Alkaline Phosphatase 122 U/L (38-126); Amylase 49 U/L (30-110); Anion Gap 11 mmol/L; Blood Urea Nitrogen 10 mg/dL (7-17); Calcium 10.7 mg/dL (8.4-10.2); Carbon Dioxide 28 mmol/L (22-30); Chloride 94 mmol/L (98-107); Glucose 291 mg/dL (74-99); Lipase 316 U/L (23-300); Non-African American GFR(CKD) >90 (>60 ml/min/1.73 sqM); Potassium 4.4 mmol/L (3.5-5.1); Sodium 133 mmol/L (137-145); Total Bilirubin 0.6 mg/dL (0.2-1.3); Total Protein 7.6 g/dL (6.3-8.2)
--- NOTE | 2023-09-04 03:09 | ED ---
Abdominal Pain HPI <Kwan Frederick - Last Filed: 09/04/23 06:47> - General Source: patient Mode of arrival: wheelchair Limitations: no limitations <Kris Hernandez - Last Filed: 09/05/23 04:31> - General Chief Complaint: Abdominal Pain Stated Complaint: Abd pain vomiting Time Seen by Provider: 09/04/23 01:06 - History of Present Illness Initial Comments: 43-year-old female presenting with chief complaint of left-sided flank pain. Patient had a lithotripsy and stent removal on the left side today by Dr. Davila. Patient states that this has happened in the past with previous stent removals and lithotripsy. No fever or chills. No dysuria. States that she is unable to keep down any foods or liquids. No chest pain or difficulty breathing. No injury or trauma. (Kris Hernandez) - Related Data Home Medications Medication Instructions Recorded Confirmed Albuterol Inhaler [Ventolin Hfa 1 - 2 puff INHALATION RT-Q6H PRN 04/15/17 09/03/23 Inhaler] HYDROcodone/APAP 10-325MG [[place] 1 tab PO Q6H PRN 01/14/18 09/03/23 10-325] Cholecalciferol [Vitamin D3 (25 25 mcg PO HS 03/26/23 09/03/23 Mcg = 1000 Iu)] Loratadine [Claritin] 10 mg PO QAM 03/26/23 09/03/23 Rosuvastatin Calcium 40 mg PO QAM 03/26/23 09/03/23 Propranolol [Inderal] 20 mg PO QAM 03/27/23 09/03/23 Glucagon Emergency Kit 1 mg IM ONCE PRN 07/10/23 09/03/23 INSULIN LISPRO (humaLOG) [humaLOG] See Protocol SQ AC-TID 07/10/23 09/03/23 Insulin Detemir [Levemir Flexpen] 14 units SQ QAM 07/10/23 09/03/23 Famotidine [Pepcid] 20 mg PO BID PRN 07/25/23 09/03/23 Naloxone HCl [Narcan] 4 mg NASAL ONCE PRN 07/25/23 09/03/23 Ondansetron Odt [Zofran ODT] 4 mg PO TID PRN 07/25/23 09/03/23 oxyBUTYnin chloride [Ditropan] 5 mg PO BID PRN 07/25/23 09/03/23 Acetaminophen Tab [Tylenol] 1,000 mg PO Q6H PRN 08/29/23 09/03/23 levETIRAcetam [Keppra] 500 mg PO HS 08/29/23 09/03/23 Previous Rx's Medication Instructions Recorded Ketorolac [Toradol] 10 mg PO Q6HR PRN #15 tab 09/03/23 Levofloxacin [Levaquin] 500 mg PO DAILY #5 tab 09/03/23 Ondansetron [Zofran] 4 mg PO Q8HR PRN #15 tab 09/03/23 Allergies Allergy/AdvReac Type Severity Reaction Status Date / Time codeine AdvReac Nausea & Verified 09/04/23 01:02 Vomiting morphine AdvReac Nausea & Verified 09/04/23 01:02 Vomiting Penicillins AdvReac Nausea & Verified 09/04/23 01:02 Vomiting Sulfa (Sulfonamide AdvReac Nausea & Verified 09/04/23 01:02 Antibiotics) Vomiting tramadol AdvReac Unknown Verified 09/04/23 01:02 Review of Systems ROS Other: All systems not noted in ROS Statement are negative. <Kwan Frederick - Last Filed: 09/04/23 06:47> ROS Other: All systems not noted in ROS Statement are negative. <Kris Hernandez - Last Filed: 09/05/23 04:31> ROS Statement: Those systems with pertinent positive or pertinent negative responses have been documented in the HPI. Past Medical History Past Medical History: Asthma, Diabetes Mellitus, GI Bleed, Seizure Disorder Additional Past Medical History / Comment(s): NIDDM type II, grand mall seizure once in 2017, lower GI bleed, mild diverticular dx, PCOS, bronchitis, pneumonia, migraines, allergic rhinitis. Kidney stones History of Any Multi-Drug Resistant Organisms: MRSA, None Reported Date of last positivie culture/infection: 2011 MDRO Source:: Lungs Past Surgical History: Section, Tubal Ligation Additional Past Surgical History / Comment(s): colonoscopies, R groin mole removed then resected d/t abnormal cells-bening. Past Anesthesia/Blood Transfusion Reactions: No Reported Reaction Past Psychological History: No Psychological Hx Reported Smoking Status: Never smoker Past Alcohol Use History: Rare Past Drug Use History: None Reported - Past Family History Father Family Medical History: Cancer Mother Family Medical History: Cancer, Dialysis <Kris Hernandez - Last Filed: 09/05/23 04:31> General Exam Limitations: no limitations General appearance: alert, in no apparent distress Head exam: Present: atraumatic, normocephalic Eye exam: Present: normal appearance Neck exam: Present: normal inspection Respiratory exam: Present: normal lung sounds bilaterally. Absent: respiratory distress, wheezes, rales, rhonchi, stridor Cardiovascular Exam: Present: regular rate, normal rhythm, normal heart sounds. Absent: systolic murmur, diastolic murmur, rubs, gallop, clicks GI/Abdominal exam: Present: soft, tenderness. Absent: distended, guarding, rebound, rigid Extremities exam: Present: normal inspection Neurological exam: Present: alert, oriented X3 Psychiatric exam: Present: normal affect, normal mood Skin exam: Present: warm, dry <Kris Hernandez - Last Filed: 09/05/23 04:31> Course Vital Signs 09/04/23 09/04/23 09/04/23 01:00 04:11 05:00 Temperature 97.4 F L Pulse Rate 126 H 101 H Respiratory 20 10 L Rate Blood Pressure 189/100 125/81 124/81 O2 Sat by Pulse 99 98 Oximetry 09/04/23 09/04/23 09/04/23 06:00 06:06 06:47 Temperature 98.7 F 98.6 F Pulse Rate 102 H Respiratory 10 L 18 Rate Blood Pressure 118/79 111/76 O2 Sat by Pulse 96 97 Oximetry Medical Decision Making - Lab Data Result diagrams: 09/04/23 01:19 09/04/23 01:19 <Kwan Frederick - Last Filed: 09/04/23 06:47> - Lab Data Result diagrams: 09/04/23 01:19 09/04/23 01:19 <Kris Hernandez - Last Filed: 09/05/23 04:31> - Medical Decision Making Patient signed out to me pending results of urinalysis. Briefly, patient presen ts following instrumentation by Dr. Davila. Was already prescribed antibiotics by Dr. davila. Presents for abdominal pain, nausea, vomiting. Patient does have a pain contract. Is already on analgesic medications at home. Urinalysis does show findings consistent with recent instrumentation the patient is already on antibiotics. I discussed with the patient. She is resting comfortably at this time. She'll be discharged home at this time. She was in agreement this plan.Patient is already on multiple antibiotics at home and I recommend she continue to take these and follow up with her specialist. I instructed the patient to follow up with their PCP in the next 1-3 days. I explained that the patient should return to the emergency department if they experience any worsening symptoms. Strict return precautions were discussed with the patient. The patient expressed understanding of these instructions. I answered all questions that the patient had. The patient was discharged home in good condition with their prescriptions and follow up information. Diagnosis/symptom? @ -Chronic abdominal pain, UTI Acute, or Chronic, or Acute on Chronic? @ -Acute on chronic Uncomplicated (without systemic symptoms) or Complicated (systemic symptoms)? @ -Uncomplicated Side effects of treatment? @ -none Exacerbation, Progression, or Severe Exacerbation] @ -no Poses a threat to life or bodily function? @ -no (Kwan Frederick) Was pt. sent in by a medical professional or institution (, PA, FORMING MILL OPERATOR, urgent care, hospital, or shelter...) When possible be specific @ -No Did you speak to anyone other than the patient for history (EMS, parent, family, police, friend...)? What history was obtained from this source @ -No Did you review nursing and triage notes (agree or disagree)? Why? @ -I reviewed and agree with nursing and triage notes Were old charts reviewed (outside hosp., previous admission, EMS record, old EKG, old radiological studies, urgent care reports/EKG's, shelter records)? Report findings @ -No old charts were reviewed Differential Diagnosis (chest pain, altered mental status, abdominal pain women, abdominal pain men, vaginal bleeding, weakness, fever, dyspnea, syncope, headache, dizziness, GI bleed, back pain, seizure, CVA, palpatations, mental health, musculoskeletal)? @ -MDM Differential Abdominal Pain Women: Appendicitis, Cholecystitis, diverticulosis, ischemic bowel, pancreatitis, hepatitis, UTI, gastroenteritis, AAA, incarcerated hernia, bowel obstruction, constipation, inflammatory bowel, hepatitis, peptic ulcer disease, splenic infarction, perforated viscus, vulvitis, ovarian torsion, PID, kidney stone, placenta abruption... This is not meant to be an all-inclusive list EKG interpreted by me (3pts min.). @ -As above X-rays interpreted by me (1pt min.). @ -None done CT interpreted by me (1pt min.). @ -None done U/S interpreted by me (1pt. min.). @ -None done What testing was considered but not performed or refused? (CT, X-rays, U/S, labs)? Why? @ -None What meds were considered but not given or refused? Why? @ -None Did you discuss the management of the patient with other professionals (professionals i.e. , PA, FORMING MILL OPERATOR, lab, RT, psych nurse, healthcare social worker, plastic tile layer, teacher, landing signal officer, showcase trimmer)? Give summary @ -No Was smoking cessation discussed for >3mins.? @ -No Was critical care preformed (if so, how long)? @ -No Were there social determinants of health that impacted care today? How? (Homelessness, low income, unemployed, alcoholism, drug addiction, transportation, low edu. Level, literacy, decrease access to med. care, skilled nursing, rehab)? @ -No Was there de-escalation of care discussed even if they declined (Discuss DNR or withdrawal of care, Hospice)? DNR status @ -No What co-morbidities impacted this encounter? (DM, HTN, Smoking, COPD, CAD, Cancer, CVA, ARF, Chemo, Hep., AIDS, mental health diagnosis, sleep apnea, morbid obesity)? @ -None Was patient admitted / discharged? Hospital course, mention meds given and route, prescriptions, significant lab abnormalities, going to OR and other pertinent info. @ -43-year-old female presenting with chief complaint of flank pain nausea and vomiting after her lithotripsy today. Patient has had a similar reaction to the lithotripsy in the past. History and physical exam were conducted. Lab work shows no leukocytosis hemoglobin consistent with baseline. Glucose 291, patient is a poorly controlled type II diabetic. Lipase 316. Patient's pain is controlled and antiemetics are administered, she is resting comfortably. Urine is pending. Patient is signed out to my attending for further management and disposition (Kris Hernandez) - Lab Data Lab Results 12/20/23 12/20/23 12/20/23 Range/Units 01:19 01:19 01:19 WBC 9.7 (3.8-10.6) k/uL RBC 3.75 L (3.80-5.40) m/uL Hgb 10.7 L (11.4-16.0) gm/dL Hct 32.0 L (34.0-46.0) % MCV 85.5 (80.0-100.0) fL MCH 28.6 (25.0-35.0) pg MCHC 33.5 (31.0-37.0) g/dL RDW 14.3 (11.5-15.5) % Plt Count 287 (150-450) k/uL MPV 7.3 Neutrophils % 82 % Lymphocytes % 10 % Monocytes % 4 % Eosinophils % 2 % Basophils % 1 % Neutrophils # 7.9 H (1.3-7.7) k/uL Lymphocytes # 1.0 (1.0-4.8) k/uL Monocytes # 0.4 (0-1.0) k/uL Eosinophils # 0.2 (0-0.7) k/uL Basophils # 0.1 (0-0.2) k/uL Hypochromasia Slight Sodium 133 L (137-145) mmol/L Potassium 4.4 (3.5-5.1) mmol/L Chloride 94 L (98-107) mmol/L Carbon Dioxide 28 (22-30) mmol/L Anion Gap 11 mmol/L BUN 10 (7-17) mg/dL Creatinine 0.52 (0.52-1.04) mg/dL Est GFR (CKD-EPI)AfAm >90 (>60 ml/min/1.73 sqM) Est GFR (CKD-EPI)NonAf >90 (>60 ml/min/1.73 sqM) Glucose 291 H (74-99) mg/dL Plasma Lactic Acid Carlos 1.0 (0.7-2.0) mmol/L Calcium 10.7 H (8.4-10.2) mg/dL Total Bilirubin 0.6 (0.2-1.3) mg/dL AST 32 (14-36) U/L ALT 42 H (4-34) U/L Alkaline Phosphatase 122 (38-126) U/L Total Protein 7.6 (6.3-8.2) g/dL Albumin 4.2 (3.5-5.0) g/dL Amylase 49 (30-110) U/L Lipase 316 H (23-300) U/L Urine Color Urine Appearance (Clear) Urine pH (5.0-8.0) Ur Specific [place] (1.001-1.035) Urine Protein (Negative) Urine Glucose (UA) (Negative) Urine Ketones (Negative) Urine Blood (Negative) Urine Nitrite (Negative) Urine Bilirubin (Negative) Urine Urobilinogen (<2.0) mg/dL Ur Leukocyte Esterase (Negative) Urine RBC (0-5) /hpf Urine WBC (0-5) /hpf Urine WBC Clumps (None) /hpf Urine Bacteria (None) /hpf Urine Mucus (None) /hpf Urine Yeast (Budding) (None) /hpf 09/04/23 Range/Units 01:19 WBC (3.8-10.6) k/uL RBC (3.80-5.40) m/uL Hgb (11.4-16.0) gm/dL Hct (34.0-46.0) % MCV (80.0-100.0) fL MCH (25.0-35.0) pg MCHC (31.0-37.0) g/dL RDW (11.5-15.5) % Plt Count (150-450) k/uL MPV Neutrophils % % Lymphocytes % % Monocytes % % Eosinophils % % Basophils % % Neutrophils # (1.3-7.7) k/uL Lymphocytes # (1.0-4.8) k/uL Monocytes # (0-1.0) k/uL Eosinophils # (0-0.7) k/uL Basophils # (0-0.2) k/uL Hypochromasia Sodium (137-145) mmol/L Potassium (3.5-5.1) mmol/L Chloride (98-107) mmol/L Carbon Dioxide (22-30) mmol/L Anion Gap mmol/L BUN (7-17) mg/dL Creatinine (0.52-1.04) mg/dL Est GFR (CKD-EPI)AfAm (>60 ml/min/1.73 sqM) Est GFR (CKD-EPI)NonAf (>60 ml/min/1.73 sqM) Glucose (74-99) mg/dL Plasma Lactic Acid Carlos (0.7-2.0) mmol/L Calcium (8.4-10.2) mg/dL Total Bilirubin (0.2-1.3) mg/dL AST (14-36) U/L ALT (4-34) U/L Alkaline Phosphatase (38-126) U/L Total Protein (6.3-8.2) g/dL Albumin (3.5-5.0) g/dL Amylase (30-110) U/L Lipase (23-300) U/L Urine Color Light Yellow Urine Appearance Turbid H (Clear) Urine pH 7.5 (5.0-8.0) Ur Specific [place] 1.012 (1.001-1.035) Urine Protein Trace H (Negative) Urine Glucose (UA) 4+ H (Negative) Urine Ketones Negative (Negative) Urine Blood Large H (Negative) Urine Nitrite Negative (Negative) Urine Bilirubin Negative (Negative) Urine Urobilinogen <2.0 (<2.0) mg/dL Ur Leukocyte Esterase Large H (Negative) Urine RBC >182 H (0-5) /hpf Urine WBC >182 H (0-5) /hpf Urine WBC Clumps Occasional H (None) /hpf Urine Bacteria Rare H (None) /hpf Urine Mucus Occasional H (None) /hpf Urine Yeast (Budding) Occasional H (None) /hpf Disposition Is patient prescribed a controlled substance at d/c from ED?: No Time of Disposition: 06:35 <Kwan Frederick - Last Filed: 09/04/23 06:47> <Kris Hernandez - Last Filed: 09/05/23 04:31> Clinical Impression: Chronic abdominal pain, UTI (urinary tract infection) Disposition: HOME SELF-CARE Condition: Good Instructions (If sedation given, give patient instructions): Abdominal Pain (ED) Referrals: Rivera Tripp DO [Primary Care Provider] - 1-2 days
[2023-09-04] MEDS ORDERED: ONDANSETRON 4 MG/2 ML VIAL IVP STA (05:07)
[2023-09-04 06:05] LABS: Appearance,Urine Turbid (Clear); Bacteria,Urine Rare /hpf; Bilirubin,Urine Negative (Negative); Blood,Urine Large (Negative); Budding Yeast,Urine Occasional /hpf; Color,Urine Light Yellow; Glucose,Urine (UA) 4+ (Negative); Ketones,Urine Negative (Negative); Leukocyte Esterase,Urine Large (Negative); Mucus,Urine Occasional /hpf; Nitrite,Urine Negative (Negative); PH, Urine 7.5 (5.0-8.0); Protein,Urine Trace (Negative); RBC,Urine >182 /hpf (0-5); Specific Gravity,Urine 1.012 (1.001-1.035); Urobilinogen,Urine <2.0 mg/dL (<2.0); WBC,Urine >182 /hpf (0-5)
[2023-09-04] MEDS ORDERED: NITROFURANTOIN MONOHYD/M-CRYST 100 MG CAP PO STA (06:32)
[2023-09-04] MEDS ORDERED: ONDANSETRON 4 MG ODT STARTER PACK 2 TAB BTL PO STA (06:44)
[2023-09-04 07:10] VITALS: BP 111/76; PULSE 102; RESP 18; TEMP 98.6
== END 2023-09-04 06:49 | disposition home or self-care (01) ==
LOC: EC 00:43
DX: N39.0 Urinary tract infection, site not specified (principal); E11.9 Type 2 diabetes mellitus without complications; J45.909 Unspecified asthma, uncomplicated; Z79.899 Other long term (current) drug therapy; Z79.4 Long term (current) use of insulin; Z88.0 Allergy status to penicillin; Z88.5 Allergy status to narcotic agent; Z88.2 Allergy status to sulfonamides
CPT/HCPCS: 36415; 80053; 82150; 83605; 83690; 85025; 81001; 87086; 99284; 96374; 96375 ×2; 96376; 96361 ×2; J2765; J2405; J1170; S0119

== ENCOUNTER 2023-09-05 08:38 | Emergency (ER) | payer OTHER ==
[2023-09-05 09:14] VITALS: TEMP 97.9
[2023-09-05] MEDS ORDERED: SODIUM CHLORIDE 0.9% 1,000 ML IV ONE (09:37)
[2023-09-05] MEDS ORDERED: ONDANSETRON 4 MG/2 ML VIAL IM STA (10:10)
[2023-09-05 10:13] LABS: Basophils % (A) 0 %; Eosinophils # (A) 0.2 k/uL (0-0.7); Eosinophils % (A) 2 %; HCT 32.4 % (34.0-46.0); HGB 10.9 gm/dL (11.4-16.0); Hypochromasia Slight; Lymphocytes # (A) 0.9 k/uL (1.0-4.8); Lymphocytes % (A) 9 %; MCH 28.3 pg (25.0-35.0); MCHC 33.5 g/dL (31.0-37.0); MCV 84.5 fL (80.0-100.0); Mean Platelet Volume 7.7; Monocytes # (A) 0.5 k/uL (0-1.0); Monocytes % (A) 5 %; Neutrophils # (A) 8.2 k/uL (1.3-7.7); Neutrophils % (A) 83 %; Platelet Count 282 k/uL (150-450); RBC 3.83 m/uL (3.80-5.40); RDW 14.5 % (11.5-15.5)
[2023-09-05 10:38] LABS: ALT 31 U/L (4-34); African American GFR (CKD) >90 (>60 ml/min/1.73 sqM); Albumin 4.5 g/dL (3.5-5.0); Anion Gap 15 mmol/L; Blood Urea Nitrogen 8 mg/dL (7-17); Calcium 10.2 mg/dL (8.4-10.2); Carbon Dioxide 23 mmol/L (22-30); Chloride 97 mmol/L (98-107); Glucose 288 mg/dL (74-99); Lipase 199 U/L (23-300); Non-African American GFR(CKD) >90 (>60 ml/min/1.73 sqM); Sodium 135 mmol/L (137-145); Total Bilirubin 0.8 mg/dL (0.2-1.3); Total Protein 8.2 g/dL (6.3-8.2)
--- NOTE | 2023-09-05 10:54 | ED ---
General Adult HPI - General Chief complaint: Abdominal Pain Stated complaint: vomiting Time Seen by Provider: 09/05/23 09:07 Source: patient, RN notes reviewed Mode of arrival: wheelchair Limitations: no limitations - History of Present Illness Initial comments: This is a 43-year-old female who is well-known to this emergency department who presents the emergency department with a chief complaint of nausea and vomiting. Patient reports that she was recently diagnosed with a 7 mm left-sided proximal ureteral stone and stent insertion at [facility], she does report lithotripsy performed by Dr. coreas on . She reports persistent nausea and vomiting ever since. She was seen and evaluated at this facility 09/04/2023 for the same. She reports resolution of symptoms. Denies any hematemesis, fever dysuria or hematuria. - Related Data Home Medications Medication Instructions Recorded Confirmed Albuterol Inhaler [Ventolin Hfa 1 - 2 puff INHALATION RT-Q6H PRN 04/15/17 09/03/23 Inhaler] HYDROcodone/APAP 10-325MG [[place] 1 tab PO Q6H PRN 01/14/18 09/03/23 10-325] Cholecalciferol [Vitamin D3 (25 25 mcg PO HS 03/26/23 09/03/23 Mcg = 1000 Iu)] Loratadine [Claritin] 10 mg PO QAM 03/26/23 09/03/23 Rosuvastatin Calcium 40 mg PO QAM 03/26/23 09/03/23 Propranolol [Inderal] 20 mg PO QAM 03/27/23 09/03/23 Glucagon Emergency Kit 1 mg IM ONCE PRN 07/10/23 09/03/23 INSULIN LISPRO (humaLOG) [humaLOG] See Protocol SQ AC-TID 07/10/23 09/03/23 Insulin Detemir [Levemir Flexpen] 14 units SQ QAM 07/10/23 09/03/23 Famotidine [Pepcid] 20 mg PO BID PRN 07/25/23 09/03/23 Naloxone HCl [Narcan] 4 mg NASAL ONCE PRN 07/25/23 09/03/23 Ondansetron Odt [Zofran ODT] 4 mg PO TID PRN 07/25/23 09/03/23 oxyBUTYnin chloride [Ditropan] 5 mg PO BID PRN 07/25/23 09/03/23 Acetaminophen Tab [Tylenol] 1,000 mg PO Q6H PRN 08/29/23 09/03/23 levETIRAcetam [Keppra] 500 mg PO HS 08/29/23 09/03/23 Previous Rx's Medication Instructions Recorded Ketorolac [Toradol] 10 mg PO Q6HR PRN #15 tab 09/03/23 Levofloxacin [Levaquin] 500 mg PO DAILY #5 tab 09/03/23 Ondansetron [Zofran] 4 mg PO Q8HR PRN #15 tab 09/03/23 Metoclopramide [Reglan] 10 mg PO TID PRN #15 tab 09/05/23 Ondansetron Odt [Zofran Odt] 4 mg PO Q8HR PRN #20 tab 09/05/23 Allergies Allergy/AdvReac Type Severity Reaction Status Date / Time codeine AdvReac Nausea & Verified 09/05/23 09:01 Vomiting morphine AdvReac Nausea & Verified 09/05/23 09:01 Vomiting Penicillins AdvReac Nausea & Verified 09/05/23 09:01 Vomiting Sulfa (Sulfonamide AdvReac Nausea & Verified 09/05/23 09:01 Antibiotics) Vomiting tramadol AdvReac Unknown Verified 09/05/23 09:01 Review of Systems ROS Statement: Those systems with pertinent positive or pertinent negative responses have been documented in the HPI. ROS Other: All systems not noted in ROS Statement are negative. Past Medical History Past Medical History: Asthma, Diabetes Mellitus, GI Bleed, Seizure Disorder Additional Past Medical History / Comment(s): NIDDM type II, [place] seizure once in 2017, lower GI bleed, mild diverticular dx, PCOS, bronchitis, pneumonia, migraines, allergic rhinitis. Kidney stones History of Any Multi-Drug Resistant Organisms: MRSA, None Reported Date of last positivie culture/infection: 2011 MDRO Source:: Lungs Past Surgical History: Section, Tubal Ligation Additional Past Surgical History / Comment(s): colonoscopies, R groin mole removed then resected d/t abnormal cells-bening. Past Anesthesia/Blood Transfusion Reactions: No Reported Reaction Past Psychological History: No Psychological Hx Reported Smoking Status: Never smoker Past Alcohol Use History: Rare Past Drug Use History: None Reported - Past Family History Father Family Medical History: Cancer Additional Family Medical History / Comment(s): COLON, MELANOMA ON HIS CHEST AND HE ALSO HAS BENIGN BRAIN TUMORS 2, diabetes, pancreatic cancer. FATHER IS alive. Mother Family Medical History: Cancer, Dialysis Additional Family Medical History / Comment(s): MELANOMA THAT METASTASIZED TO THE BRAIN- FROM AT AGE 49 YRS. Mother had an SC at age 34 with angioplasty at age 36 yrs and another SC, and history of diabetes. Patient has many aunts, uncles and nieces with diabetes on her mother's side. Brother(s) Additional Family Medical History / Comment(s): Patient has one half-brother with kidney stones, full brother with no major medical problems. Patient has 1 sister with no major medical problems. Daughter(s) Additional Family Medical History / Comment(s): Patient has 2 daughters and her youngest daughter has history of seizure disorder. Patient has one son with no major medical problems. General Exam - General Exam Comments Initial Comments: General: Alert, in no acute distress Head: atraumatic normocephalic. Eyes PERRL, EOMI intact, mucous membranes moist Respiratory: Lungs clear to auscultation bilaterally Cardiovascular: Regular rate and rhythm Abdominal: Soft without guarding or rebound, generalized tenderness Extremities: Normal inspection with full range of motion and normal capillary refill Neuroogic: alert and oriented 3, CN II-XII intact, able to ambulate with steady gait Skin: warm dry and intact with normal color Limitations: no limitations Course Vital Signs 09/05/23 09/05/23 08:58 14:22 Temperature 97.9 F Pulse Rate 119 H 109 H Respiratory 20 18 Rate Blood Pressure 168/107 177/104 O2 Sat by Pulse 100 99 Oximetry - Reevaluation(s) Reevaluation #1: 09/05/23 11:00 she'll history and physical exam performed. Patient actively vomiting during evaluation. Reevaluation #2: 09/05/23 12:34 Patient reevaluated. Patient reports resolution of nausea however still complains of mild pain. Reevaluation #3: 09/05/23 14:06 Reevaluated. Patient reports symptomatic improvement status post medications. She is agreeable with the plan for discharge home. Denies any active plan at this time. Medical Decision Making - Medical Decision Making Was pt. sent in by a medical professional or institution (EVIE Killian, YARDAGE CONTROL CLERK, urgent care, hospital, or fpc...) When possible be specific @ -[No] Did you speak to anyone other than the patient for history (EMS, parent, family, police, friend...)? What history was obtained from this source @ -[No] Did you review nursing and triage notes (agree or disagree)? Why? @ -[I reviewed and agree with nursing and triage notes] Were old charts reviewed (outside hosp., previous admission, EMS record, old EKG, old radiological studies, urgent care reports/EKG's, fpc records)? Report findings @ Lithotripsy procedure from 09/03/23 reviewed ED note from 09/04/21 reviewed Differential Diagnosis (chest pain, altered mental status, abdominal pain women, abdominal pain men, vaginal bleeding, weakness, fever, dyspnea, syncope, headache, dizziness, GI bleed, back pain, seizure, CVA, palpatations, mental health, musculoskeletal)? @ -[not applicable] EKG interpreted by me (3pts min.). @ -[As above] X-rays interpreted by me (1pt min.). @ -[None done] CT interpreted by me (1pt min.). @ -[None done] U/S interpreted by me (1pt. min.). @ US of the bladder and kidneys is unremarkable. There is a possible left adnexal region that measures 4.8 cm. However is difficult to examine due to patient's pain What testing was considered but not performed or refused? (CT, X-rays, U/S, labs)? Why? @ -[None] What meds were considered but not given or refused? Why? @ -[None] Did you discuss the management of the patient with other professionals (professionals i.e. EVIE Killian, YARDAGE CONTROL CLERK, lab, RT, psych nurse, social contact worker, coutierier, teacher, mechanical engineering officer, caseworker protective services)? Give summary @ -[No] Was smoking cessation discussed for >3mins.? @ -[No] Was critical care preformed (if so, how long)? @ -[No] Were there social determinants of health that impacted care today? How? (Homelessness, low income, unemployed, alcoholism, drug addiction, transportation, low edu. Level, literacy, decrease access to med. care, fpc, rehab)? @ -[No] Was there de-escalation of care discussed even if they declined (Discuss DNR or withdrawal of care, Hospice)? DNR status @ -[No] What co-morbidities impacted this encounter? (DM, HTN, Smoking, COPD, CAD, Cancer, CVA, ARF, Chemo, Hep., AIDS, mental health diagnosis, sleep apnea, morbid obesity)? @ -[None] Was patient admitted / discharged? Hospital course, mention meds given and route, prescriptions, significant lab abnormalities, going to OR and other pertinent info. @ -Discharged. This is a 43-year-old female who presents the emergency department with a chief complaint of nausea and vomiting and abdominal pain. Patient is physical exam performed. Vital signs are stable upon evaluation. Patient is afebrile. Patient is generalized abdominal tenderness. Patient had laboratory studies all of which have improved since 09/04/2023 evaluation. Patient was provided Zofran, Reglan, Dilaudid 1 L IV fluids for symptomatic improvement. I discussed the results in detail the patient verbalized understanding all questions addressed. She is agreeable with The plan for discharge home with recommended close follow up with PCP. She was encouraged to follow up with pain management of his soonest convenience. Return precautions were discussed. Case discussed with Dr. Boateng, ED attending who agrees with plan of care Undiagnosed new problem with uncertain prognosis? @ -[No] Drug Therapy requiring intensive monitoring for toxicity (Heparin, Nitro, Insulin, Cardizem)? @ -[No] Were any procedures done? @ -[No] Diagnosis/symptom? @ -Nausea and Vomiting - Abdominal Pain - Hx of Recent Lithotripsy Acute, or Chronic, or Acute on Chronic? @ Acute Uncomplicated (without systemic symptoms) or Complicated (systemic symptoms)? @ -Uncomplicated Side effects of treatment? @ -[No] Exacerbation, Progression, or Severe Exacerbation? @ -[No] Poses a threat to life or bodily function? How? (Chest pain, USA, SC, pneumonia, PE, COPD, DKA, ARF, appy, cholecystitis, CVA, Diverticulitis, Homicidal, Suicidal, threat to staff... and all critical care pts) @ -Low likelihood - Lab Data Result diagrams: 09/05/23 10:05 09/05/23 10:05 Lab Results 09/05/23 09/05/23 09/05/23 Range/Units 10:05 10:05 11:20 WBC 10.0 (3.8-10.6) k/uL RBC 3.83 (3.80-5.40) m/uL Hgb 10.9 L (11.4-16.0) gm/dL Hct 32.4 L (34.0-46.0) % MCV 84.5 (80.0-100.0) fL MCH 28.3 (25.0-35.0) pg MCHC 33.5 (31.0-37.0) g/dL RDW 14.5 (11.5-15.5) % Plt Count 282 (150-450) k/uL MPV 7.7 Neutrophils % 83 % Lymphocytes % 9 % Monocytes % 5 % Eosinophils % 2 % Basophils % 0 % Neutrophils # 8.2 H (1.3-7.7) k/uL Lymphocytes # 0.9 L (1.0-4.8) k/uL Monocytes # 0.5 (0-1.0) k/uL Eosinophils # 0.2 (0-0.7) k/uL Basophils # 0.0 (0-0.2) k/uL Hypochromasia Slight Sodium 135 L (137-145) mmol/L Potassium 4.7 (3.5-5.1) mmol/L Chloride 97 L (98-107) mmol/L Carbon Dioxide 23 (22-30) mmol/L Anion Gap 15 mmol/L BUN 8 (7-17) mg/dL Creatinine 0.45 L (0.52-1.04) mg/dL Est GFR (CKD-EPI)AfAm >90 (>60 ml/min/1.73 sqM) Est GFR (CKD-EPI)NonAf >90 (>60 ml/min/1.73 sqM) Glucose 288 H (74-99) mg/dL Calcium 10.2 (8.4-10.2) mg/dL Total Bilirubin 0.8 (0.2-1.3) mg/dL AST 46 H (14-36) U/L ALT 31 (4-34) U/L Alkaline Phosphatase 96 (38-126) U/L Total Protein 8.2 (6.3-8.2) g/dL Albumin 4.5 (3.5-5.0) g/dL Lipase 199 (23-300) U/L Urine Color Light Red Urine Appearance Clear (Clear) Urine pH 7.5 (5.0-8.0) Ur Specific [place] 1.015 (1.001-1.035) Urine Protein Negative (Negative) Urine Glucose (UA) 4+ (Negative) Urine Ketones 1+ (Negative) Urine Blood Negative (Negative) Urine Nitrite Negative (Negative) Urine Bilirubin Negative (Negative) Urine Urobilinogen <2.0 (<2.0) mg/dL Ur Leukocyte Esterase Negative (Negative) Disposition Clinical Impression: Abdominal pain, Nausea and vomiting Disposition: HOME SELF-CARE Condition: Stable Additional Instructions: Monitor symptoms closely Please take Jaylon and Reglan for nausea Follow-up with her design painter as soon as able Please return to the nearest emergency department if worsening symptoms Prescriptions: Metoclopramide [Reglan] 10 mg PO TID PRN #15 tab PRN Reason: Nausea Ondansetron Odt [Zofran Odt] 4 mg PO Q8HR PRN #20 tab PRN Reason: Nausea Is patient prescribed a controlled substance at d/c from ED?: No Referrals: Rivera Tripp DO [Primary Care Provider] - 1-2 days Time of Disposition: 14:07
[2023-09-05 10:56] LABS: AST 46 U/L (14-36); Alkaline Phosphatase 96 U/L (38-126); Potassium 4.7 mmol/L (3.5-5.1)
[2023-09-05] MEDS ORDERED: HYDROmorphone 1 MG/ML 1 ML SYRINGE IVP STA (10:57)
[2023-09-05 11:59] LABS: Appearance,Urine Clear (Clear); Color,Urine Light Red; PH, Urine 7.5 (5.0-8.0); Specific Gravity,Urine 1.015 (1.001-1.035)
[2023-09-05 12:00] LABS: Bilirubin,Urine Negative (Negative); Blood,Urine Negative (Negative); Glucose,Urine (UA) 4+ (Negative); Ketones,Urine 1+ (Negative); Leukocyte Esterase,Urine Negative (Negative); Nitrite,Urine Negative (Negative); Protein,Urine Negative (Negative); Urobilinogen,Urine <2.0 mg/dL (<2.0)
--- NOTE | 2023-09-05 13:11 | US ---
EXAMINATION TYPE: US kidneys/renal and bladder DATE OF EXAM: 09/05/2023 COMPARISON: NONE CLINICAL INDICATION: Female, 43 years old with history of NV; left lithotripsy 09/03, N/V since then EXAM MEASUREMENTS: Right Kidney: 11.6x4.8x6.0 cm Left Kidney: 11.1x5.7x5.6 cm Right Kidney: No hydronephrosis or masses seen Left Kidney: No hydronephrosis or masses seen Bladder: wnl Bilateral Jets seen: Yes Learning And Development Consultant notes: There appears to be a 4.8 cm complex hypoechoic area in the left adnexa, difficult to assess due to bowel and patient pain. IMPRESSION: 1. No hydronephrosis. 2. Possible left adnexal lesion measuring 4.8 cm. Dedicated pelvic ultrasound may be considered. If p ersistent exam limitations and concern for acute pathology in the left adnexa, CT can be considered.
[2023-09-05] MEDS ORDERED: HYDROmorphone 0.5 MG/0.5 ML SYRINGE IVP STA (13:19)
[2023-09-05] MEDS ORDERED: METOCLOPRAMIDE 5 MG/ML 2 ML VIAL IVP STA (13:19)
[2023-09-05 14:42] VITALS: BP 177/104; PULSE 109; RESP 18
== END 2023-09-05 14:46 | disposition home or self-care (01) ==
LOC: EC 08:38
DX: R10.9 Unspecified abdominal pain (principal); R11.2 Nausea with vomiting, unspecified; E11.9 Type 2 diabetes mellitus without complications; J45.909 Unspecified asthma, uncomplicated; Z79.4 Long term (current) use of insulin; Z79.899 Other long term (current) drug therapy; Z88.5 Allergy status to narcotic agent; Z88.0 Allergy status to penicillin; Z88.2 Allergy status to sulfonamides; Z88.8 Allergy status to other drugs, medicaments and biological substances
CPT/HCPCS: 36415; 80053; 83690; 85025; 81003; 76770; 99285; 96374; 96375; 96376; 96361; 96372; J2765; J2405; J1170 ×2

== ENCOUNTER 2023-11-11 15:25 | Emergency (ER) | payer OTHER ==
--- NOTE | 2023-11-11 15:47 | ED ---
General Adult HPI - General Chief complaint: Seizure Stated complaint: Seizure Time Seen by Provider: 11/11/23 15:28 Source: patient, family, EMS, RN notes reviewed Mode of arrival: EMS Limitations: altered mental status - History of Present Illness Initial comments: Patient is a pleasant 43-year-old female present to the emergency department with reported seizure. Seizure was witnessed by daughter. Seizure lasted around 4 minutes. Patient does have history of chronic seizures, only gets a couple per year. Patient has been weaned off her medication. Up until a few days ago patient was on Keppra 500 mg at nighttime only. Patient has been off this for 2 to 3 days. They did question whether or not to restart a different medication. Patient at this time states she is feeling much better and only feels slightly drowsy. Patient denies any injury. No confusion. - Related Data Home Medications Medication Instructions Recorded Confirmed Albuterol Inhaler [Ventolin Hfa 1 - 2 puff INHALATION RT-Q6H PRN 04/15/17 11/11/23 Inhaler] HYDROcodone/APAP 10-325MG [Cadiz 1 tab PO Q6H PRN 01/14/18 11/11/23 10-325] Cholecalciferol [Vitamin D3 (25 25 mcg PO HS 03/26/23 11/11/23 Mcg = 1000 Iu)] Loratadine [Claritin] 10 mg PO QAM 03/26/23 11/11/23 Propranolol [Inderal] 20 mg PO QAM 03/27/23 11/11/23 Glucagon Emergency Kit 1 mg IM ONCE PRN 07/10/23 11/11/23 INSULIN LISPRO (humaLOG) [humaLOG] See Protocol SQ AC-TID 07/10/23 11/11/23 Insulin Detemir [Levemir Flexpen] 14 units SQ DAILY 07/10/23 11/11/23 Famotidine [Pepcid] 20 mg PO BID PRN 07/25/23 11/11/23 Naloxone HCl [Narcan] 4 mg NASAL ONCE PRN 07/25/23 11/11/23 Acetaminophen Tab [Tylenol] 1,000 mg PO Q6H PRN 08/29/23 11/11/23 levETIRAcetam [Keppra] 500 mg PO HS 08/29/23 11/11/23 Cyclobenzaprine [Flexeril] 10 mg PO BID PRN 11/11/23 11/11/23 Dicyclomine [Bentyl] 10 mg PO TID PRN 11/11/23 11/11/23 Lactulose 20 gm PO BID PRN 11/11/23 11/11/23 Lidocaine-Prilocaine Cream [Emla 1 applic TOPICAL BID PRN 11/11/23 11/11/23 Cream 2.5%/2.5%] Mupirocin 2% Oint [Bactroban 2% 1 applic TOPICAL BID 11/11/23 11/11/23 Oint] Pantoprazole [Protonix] 40 mg PO DAILY 11/11/23 11/11/23 Previous Rx's Medication Instructions Recorded Metoclopramide [Reglan] 10 mg PO TID PRN #15 tab 09/05/23 Ondansetron Odt [Zofran Odt] 4 mg PO Q8HR PRN #20 tab 09/05/23 Allergies Allergy/AdvReac Type Severity Reaction Status Date / Time codeine AdvReac Nausea & Verified 11/11/23 16:24 Vomiting morphine AdvReac Nausea & Verified 11/11/23 16:24 Vomiting Penicillins AdvReac Nausea & Verified 11/11/23 16:24 Vomiting Sulfa (Sulfonamide AdvReac Nausea & Verified 11/11/23 16:24 Antibiotics) Vomiting tramadol AdvReac Unknown Verified 11/11/23 16:24 Review of Systems ROS Statement: Those systems with pertinent positive or pertinent negative responses have been documented in the HPI. ROS Other: All systems not noted in ROS Statement are negative. Constitutional: Denies: fever Eyes: Denies: eye pain ENT: Denies: ear pain Respiratory: Denies: cough Cardiovascular: Denies: chest pain Endocrine: Denies: fatigue Gastrointestinal: Denies: abdominal pain Neurological: Reports: as per HPI. Denies: headache Past Medical History Past Medical History: Asthma, Diabetes Mellitus, GI Bleed, Seizure Disorder Additional Past Medical History / Comment(s): NIDDM type II, [place] seizure once in 2017, lower GI bleed, mild diverticular dx, PCOS, bronchitis, pneumonia, migraines, allergic rhinitis. Kidney stones History of Any Multi-Drug Resistant Organisms: MRSA, None Reported Date of last positivie culture/infection: 2011 MDRO Source:: Lungs Past Surgical History: Section, Tubal Ligation Additional Past Surgical History / Comment(s): colonoscopies, R groin mole removed then resected d/t abnormal cells-bening. Past Anesthesia/Blood Transfusion Reactions: No Reported Reaction Past Psychological History: No Psychological Hx Reported Smoking Status: Never smoker Past Alcohol Use History: Rare Past Drug Use History: None Reported - Past Family History Father Family Medical History: Cancer Additional Family Medical History / Comment(s): COLON, MELANOMA ON HIS CHEST AND HE ALSO HAS BENIGN BRAIN TUMORS 2, diabetes, pancreatic cancer. FATHER IS alive. Mother Family Medical History: Cancer, Dialysis Additional Family Medical History / Comment(s): MELANOMA THAT METASTASIZED TO THE BRAIN- FROM AT AGE 49 YRS. Mother had an ID at age 34 with angioplasty at age 36 yrs and another ID, and history of diabetes. Patient has many aunts, uncles and nieces with diabetes on her mother's side. Brother(s) Additional Family Medical History / Comment(s): Patient has one half-brother with kidney stones, full brother with no major medical problems. Patient has 1 sister with no major medical problems. Daughter(s) Additional Family Medical History / Comment(s): Patient has 2 daughters and her youngest daughter has history of seizure disorder. Patient has one son with no major medical problems. General Exam Limitations: no limitations General appearance: alert, in no apparent distress Head exam: Present: normocephalic Eye exam: Present: normal appearance, PERRL, EOMI ENT exam: Present: normal oropharynx Neck exam: Present: normal inspection. Absent: tenderness Respiratory exam: Present: normal lung sounds bilaterally Cardiovascular Exam: Present: regular rate, normal rhythm GI/Abdominal exam: Present: soft. Absent: tenderness Extremities exam: Present: normal inspection, full ROM. Absent: tenderness Neurological exam: Present: alert, oriented X3, CN II-XII intact. Absent: motor sensory deficit Psychiatric exam: Present: normal affect, normal mood Skin exam: Present: normal color Course Vital Signs 11/11/23 11/11/23 15:26 15:31 Temperature 98.8 F Pulse Rate 101 H Respiratory 20 Rate Blood Pressure 141/92 O2 Sat by Pulse 97 Oximetry EKG Findings - EKG Results: EKG: interpreted by ERMD, sinus rhythm, normal axis, normal QRS, normal ST/T EKG shows: tachycardia Medical Decision Making - Medical Decision Making Was pt. sent in by a medical professional or institution ([facility], [facility], urgent care, hospital, or [facility]...) When possible be specific @ -No Did you speak to anyone other than the patient for history (EMS, parent, family, police, friend...)? What history was obtained from this source @ -Daughter is present and provides history as she did witness the event. Did you review nursing and triage notes (agree or disagree)? Why? @ -I reviewed and agree with nursing and triage notes Were old charts reviewed (outside hosp., previous admission, EMS record, old EKG, old radiological studies, urgent care reports/EKG's, [facility] records)? Report findings @ -Previous hemoglobin and blood sugars reviewed Differential Diagnosis (chest pain, altered mental status, abdominal pain women, abdominal pain men, vaginal bleeding, weakness, fever, dyspnea, syncope, headache, dizziness, GI bleed, back pain, seizure, CVA, palpatations, mental health, musculoskeletal)? @ -Differential Seizure: Recurrent seizure disorder, febrile seizure, alcohol withdrawal, stimulants, meningitis, encephalitis, intercranial hemorrhage, intracranial tumor, stroke, eclampsia, thyrotoxicosis, hypocalcemia, hyponatremia, hypernatremia, hypomagnesemia, psychogenic, this is not meant to be an all-inclusive list. EKG interpreted by me (3pts min.). @ -As above X-rays interpreted by me (1pt min.). @ -None done CT interpreted by me (1pt min.). @ -None done U/S interpreted by me (1pt. min.). @ -None done What testing was considered but not performed or refused? (CT, X-rays, U/S, labs)? Why? @ -None What meds were considered but not given or refused? Why? @ -None Did you discuss the management of the patient with other professionals (lindsay delgdao i.e. [facility], [facility], lab, RT, psych nurse, mental health social worker, supervisor show operations, teacher, intelligence officer basic, case briefer)? Give summary @ -No Was smoking cessation discussed for >3mins.? @ -No Was critical care preformed (if so, how long)? @ -No Were there social determinants of health that impacted care today? How? (Homelessness, low income, unemployed, alcoholism, drug addiction, transportation, low edu. Level, literacy, decrease access to med. care, custodial, rehab)? @ -No Was there de-escalation of care discussed even if they declined (Discuss DNR or withdrawal of care, Hospice)? DNR status @ -No What co-morbidities impacted this encounter? (DM, HTN, Smoking, COPD, CAD, Cancer, CVA, ARF, Chemo, Hep., AIDS, mental health diagnosis, sleep apnea, morbid obesity)? @ -History of seizures Was patient admitted / discharged? Hospital course, mention meds given and route, prescriptions, significant lab abnormalities, going to OR and other pertinent info. @ -Patient reevaluated and feeling much better. Patient requesting discharge home. Patient states she has been trying to get off her medications however is receptive to a dose of insulin prior to discharge. Patient has a neurology appointment Saturday that she does plan on keeping. Patient advised to continue Keppra until that time. Undiagnosed new problem with uncertain prognosis? @ -No Drug Therapy requiring intensive monitoring for toxicity (Heparin, Nitro, Insulin, Cardizem)? @ -No Were any procedures done? @ -No Diagnosis/symptom? @ -Generalized seizure Acute, or Chronic, or Acute on Chronic? @ -Acute on chronic Uncomplicated (without systemic symptoms) or Complicated (systemic symptoms)? @ -Default Side effects of treatment? @ -No Exacerbation, Progression, or Severe Exacerbation? @ -No Poses a threat to life or bodily function? How? (Chest pain, USA, ID, pneumonia, PE, COPD, DKA, ARF, appy, cholecystitis, CVA, Diverticulitis, Homicidal, Suicidal, threat to staff... and all critical care pts) @ -No - Lab Data Result diagrams: 11/11/23 15:47 11/11/23 15:47 Lab Results 11/11/23 11/11/23 11/11/23 Range/Units 15:47 15:47 16:26 WBC 9.3 (3.8-10.6) k/uL RBC 3.85 (3.80-5.40) m/uL Hgb 10.5 L (11.4-16.0) gm/dL Hct 30.6 L (34.0-46.0) % MCV 79.6 L (80.0-100.0) fL MCH 27.3 (25.0-35.0) pg MCHC 34.3 (31.0-37.0) g/dL RDW 15.5 (11.5-15.5) % Plt Count 264 (150-450) k/uL MPV 7.6 Neutrophils % 76 % Lymphocytes % 14 % Monocytes % 5 % Eosinophils % 2 % Basophils % 0 % Neutrophils # 7.1 (1.3-7.7) k/uL Lymphocytes # 1.3 (1.0-4.8) k/uL Monocytes # 0.5 (0-1.0) k/uL Eosinophils # 0.2 (0-0.7) k/uL Basophils # 0.0 (0-0.2) k/uL Sodium 132 L (137-145) mmol/L Potassium 3.6 (3.5-5.1) mmol/L Chloride 100 (98-107) mmol/L Carbon Dioxide 25 (22-30) mmol/L Anion Gap 7 mmol/L BUN 11 (7-17) mg/dL Creatinine 0.42 L (0.52-1.04) mg/dL Est GFR (CKD-EPI)AfAm >90 (>60 ml/min/1.73 sqM) Est GFR (CKD-EPI)NonAf >90 (>60 ml/min/1.73 sqM) Glucose 345 H (74-99) mg/dL POC Glucose (mg/dL) 357 H (70-110) mg/dL POC Glu [employer] [place] MARCELA Sukhdeep Terrell Calcium 8.9 (8.4-10.2) mg/dL Magnesium 1.7 (1.6-2.3) mg/dL Total Bilirubin 0.3 (0.2-1.3) mg/dL AST 17 (14-36) U/L ALT 17 (4-34) U/L Alkaline Phosphatase 66 (38-126) U/L Total Protein 5.7 L (6.3-8.2) g/dL Albumin 3.2 L (3.5-5.0) g/dL Disposition Clinical Impression: Generalized seizure Disposition: HOME SELF-CARE Condition: Stable Instructions (If sedation given, give patient instructions): Seizure/Epilepsy Discharge Instructions & Follow-Up Additional Instructions: Please do follow-up with your primary care physician in the next couple days for recheck. Have primary care physician recheck blood sugar. Please do follow-up with your neurologist Saturday as planned. Continue Keppra until that time. Return for increased seizures, uncontrolled blood sugar, worsening symptoms or other concerns. Is patient prescribed a controlled substance at d/c from ED?: No Referrals: Rivera Tripp DO [Primary Care Provider] - 1-2 days Time of Disposition: 16:31
[2023-11-11] MEDS: levETIRAcetam IV 500 MG/5 ML VIAL IVP STA (15:51)
[2023-11-11 16:02] LABS: Basophils % (A) 0 %; Eosinophils # (A) 0.2 k/uL (0-0.7); Eosinophils % (A) 2 %; HCT 30.6 % (34.0-46.0); HGB 10.5 gm/dL (11.4-16.0); Lymphocytes # (A) 1.3 k/uL (1.0-4.8); Lymphocytes % (A) 14 %; MCH 27.3 pg (25.0-35.0); MCHC 34.3 g/dL (31.0-37.0); MCV 79.6 fL (80.0-100.0); Mean Platelet Volume 7.6; Monocytes # (A) 0.5 k/uL (0-1.0); Monocytes % (A) 5 %; Neutrophils # (A) 7.1 k/uL (1.3-7.7); Neutrophils % (A) 76 %; Platelet Count 264 k/uL (150-450); RBC 3.85 m/uL (3.80-5.40); RDW 15.5 % (11.5-15.5); WBC 9.3 k/uL (3.8-10.6)
[2023-11-11 16:11] VITALS: TEMP 98.8
[2023-11-11 16:16] LABS: ALT 17 U/L (4-34); AST 17 U/L (14-36); African American GFR (CKD) >90 (>60 ml/min/1.73 sqM); Albumin 3.2 g/dL (3.5-5.0); Alkaline Phosphatase 66 U/L (38-126); Anion Gap 7 mmol/L; Blood Urea Nitrogen 11 mg/dL (7-17); Calcium 8.9 mg/dL (8.4-10.2); Carbon Dioxide 25 mmol/L (22-30); Chloride 100 mmol/L (98-107); Glucose 345 mg/dL (74-99); Magnesium 1.7 mg/dL (1.6-2.3); Non-African American GFR(CKD) >90 (>60 ml/min/1.73 sqM); Potassium 3.6 mmol/L (3.5-5.1); Sodium 132 mmol/L (137-145); Total Bilirubin 0.3 mg/dL (0.2-1.3); Total Protein 5.7 g/dL (6.3-8.2)
[2023-11-11 16:28] LABS: Glucose,Whole Blood 357 mg/dL (70-110)
[2023-11-11] MEDS: INSULIN REGULAR 100 UNIT/ML VIAL (IM/SQ) SQ ONE (16:38)
[2023-11-11 17:08] VITALS: BP 127/83; PULSE 100; RESP 18
== END 2023-11-11 16:51 | disposition home or self-care (01) ==
LOC: EC 15:25
DX: G40.409 Other generalized epilepsy and epileptic syndromes, not intractable, without status epilepticus (principal); R00.0 Tachycardia, unspecified; E11.9 Type 2 diabetes mellitus without complications; J45.909 Unspecified asthma, uncomplicated; Z79.4 Long term (current) use of insulin; Z79.899 Other long term (current) drug therapy; Z88.5 Allergy status to narcotic agent; Z88.0 Allergy status to penicillin; Z88.2 Allergy status to sulfonamides
CPT/HCPCS: 36415; 93005; 80053; 80177; 83735; 85025; 99285; 96374; J1953

== ENCOUNTER → 2024-01-27 | Outpatient (CLI) | payer OTHER ==
--- NOTE | 2024-01-27 17:25 | CT ---
EXAMINATION TYPE: CT abdomen pelvis wo con CT DLP: 353.6 mGycm, Automated exposure control for dose reduction was used. DATE OF EXAM: 01/27/2024 5:02 PM COMPARISON: CT abdomen pelvis most recent from 07/25/2023 CLINICAL INDICATION:Female, 43 years old with history of N20.0 CALCULUS OF KIDNEY; Bilateral flank pa in, more severe on right side TECHNIQUE: Axial CT abdomen pelvis wo con;Sagittal and coronal reformats were created on a separate workstation. Contrast used: mL of , (none if empty) Oral contrast used: without Oral Contrast (none if empty) FINDINGS: LOWER CHEST: Unremarkable ABDOMEN LIVER: Unremarkable GALLBLADDER AND BILE DUCTS: Unremarkable. PANCREAS: Unremarkable. SPLEEN: Unremarkable. ADRENAL GLANDS: Unremarkable. KIDNEYS AND URETERS: Nonobstructing bilateral renal calculi measuring up to 8 mm on the right and 2 m m on the left. Right renal calculus has increased in size from prior exam and become more dense. PELVIS BLADDER: Unremarkable REPRODUCTIVE: Unremarkable. ABDOMEN & PELVIS STOMACH AND BOWEL: No evidence of bowel obstruction. Appendix is normal. Large amount stool is seen t hroughout the colon and in the stomach. PERITONEUM/RETROPERITONEUM: No evidence of pneumoperitoneum or free fluid. VASCULATURE: No evidence of aortic aneurysm. MUSCULOSKELETAL: No acute osseous abnormalities LYMPH NODES: No gross evidence for lymphadenopathy. SOFT TISSUE/ABDOMINAL WALL: Unremarkable IMPRESSION: 1. Bilateral nonobstructing renal calculi. No evidence for obstructive uropathy. No other acute proc ess to explain bilateral flank pain. 2. Large amount stool throughout the colon and stomach. 3. The appendix is normal.
== END | disposition home or self-care (01) ==
LOC: RADCTMAIN 16:42
PROVIDERS: ATTEND Urology
DX: N20.0 Calculus of kidney (principal)
CPT/HCPCS: 74176

== ENCOUNTER 2024-04-06 06:17 | Inpatient (IN) | payer OTHER ==
--- NOTE | 2024-04-06 07:11 | ED ---
Abdominal Pain HPI - General Chief Complaint: Abdominal Pain Stated Complaint: Abdominal Pain Time Seen by Provider: 04/06/24 06:18 Source: patient, EMS, RN notes reviewed Mode of arrival: EMS Limitations: no limitations - History of Present Illness Initial Comments: 44-year-old female presents emergency department chief complaint of nausea vomiting abdominal pain. Patient states pain started overnight patient states it is more on the right side she had a prior cholecystectomy, prior gallstone pancreatitis. Patient states that she is also had peptic ulcer disease. Patient states after vomiting she noticed some darker emesis. Patient denies any fevers chills no chest pain no shortness of breath no fever. Denies any change in bowel habits no dysuria. - Related Data Home Medications Medication Instructions Recorded Confirmed Albuterol Inhaler [Ventolin Hfa 1 - 2 puff INHALATION RT-Q6H PRN 04/15/17 Inhaler] HYDROcodone/APAP 10-325MG [[place] 1 tab PO Q6H PRN 01/14/18 11/11/23 10-325] Cholecalciferol [Vitamin D3 (25 25 mcg PO HS 03/26/23 11/11/23 Mcg = 1000 Iu)] Loratadine [Claritin] 10 mg PO DAILY 03/26/23 11/11/23 Propranolol [Inderal] 20 mg PO DAILY 03/27/23 11/11/23 Glucagon Emergency Kit 1 mg IM ONCE PRN 07/10/23 11/11/23 INSULIN LISPRO (humaLOG) [humaLOG] See Protocol SQ AC-TID 07/10/23 11/11/23 Insulin Detemir [Levemir Flexpen] 14 units SQ DAILY 07/10/23 11/11/23 Famotidine [Pepcid] 20 mg PO BID PRN 07/25/23 11/11/23 Naloxone HCl [Narcan] 4 mg NASAL ONCE PRN 07/25/23 11/11/23 Acetaminophen Tab [Tylenol] 1,000 mg PO Q6H PRN 08/29/23 11/11/23 levETIRAcetam [Keppra] 500 mg PO HS 08/29/23 11/11/23 Cyclobenzaprine [Flexeril] 10 mg PO BID PRN 11/11/23 11/11/23 Dicyclomine [Bentyl] 10 mg PO TID PRN 11/11/23 11/11/23 Ferrous Sulfate [Feosol] 325 mg PO DAILY 11/11/23 11/11/23 Lactulose 20 gm PO BID PRN 11/11/23 11/11/23 Lidocaine-Prilocaine Cream [Emla 1 applic TOPICAL BID PRN 11/11/23 11/11/23 Cream 2.5%/2.5%] Mupirocin 2% Oint [Bactroban 2% 1 applic TOPICAL BID 11/11/23 11/11/23 Oint] Pantoprazole [Protonix] 40 mg PO DAILY 11/11/23 11/11/23 Previous Rx's Medication Instructions Recorded Metoclopramide [Reglan] 10 mg PO TID PRN #15 tab 09/05/23 Ondansetron Odt [Zofran Odt] 4 mg PO Q8HR PRN #20 tab 09/05/23 Allergies Allergy/AdvReac Type Severity Reaction Status Date / Time codeine AdvReac Nausea & Verified 11/11/23 16:24 Vomiting morphine AdvReac Nausea & Verified 11/11/23 16:24 Vomiting Penicillins AdvReac Nausea & Verified 11/11/23 16:24 Vomiting Sulfa (Sulfonamide AdvReac Nausea & Verified 11/11/23 16:24 Antibiotics) Vomiting tramadol AdvReac Unknown Verified 11/11/23 16:24 Review of Systems ROS Statement: Those systems with pertinent positive or pertinent negative responses have been documented in the HPI. ROS Other: All systems not noted in ROS Statement are negative. Past Medical History Past Medical History: Asthma, Diabetes Mellitus, GI Bleed, Seizure Disorder Additional Past Medical History / Comment(s): NIDDM type II, grand mall seizure once in 2017, lower GI bleed, mild diverticular dx, PCOS, bronchitis, pneumonia, migraines, allergic rhinitis. Kidney stones History of Any Multi-Drug Resistant Organisms: MRSA, None Reported Date of last positivie culture/infection: 2011 MDRO Source:: Lungs Past Surgical History: Section, Tubal Ligation Additional Past Surgical History / Comment(s): colonoscopies, R groin mole removed then resected d/t abnormal cells-bening. Past Anesthesia/Blood Transfusion Reactions: No Reported Reaction Past Psychological History: No Psychological Hx Reported Smoking Status: Never smoker Past Alcohol Use History: Rare Past Drug Use History: None Reported - Past Family History Father Family Medical History: Cancer Additional Family Medical History / Comment(s): COLON, MELANOMA ON HIS CHEST AND HE ALSO HAS BENIGN BRAIN TUMORS 2, diabetes, pancreatic cancer. FATHER IS alive. Mother Family Medical History: Cancer, Dialysis Additional Family Medical History / Comment(s): MELANOMA THAT METASTASIZED TO THE BRAIN- FROM AT AGE 49 YRS. Mother had an OK at age 34 with angioplasty at age 36 yrs and another OK, and history of diabetes. Patient has many aunts, uncles and nieces with diabetes on her mother's side. Brother(s) Additional Family Medical History / Comment(s): Patient has one half-brother with kidney stones, full brother with no major medical problems. Patient has 1 sister with no major medical problems. Daughter(s) Additional Family Medical History / Comment(s): Patient has 2 daughters and her youngest daughter has history of seizure disorder. Patient has one son with no major medical problems. General Exam Limitations: no limitations General appearance: alert, in no apparent distress Head exam: Present: atraumatic, normocephalic, normal inspection Eye exam: Present: normal appearance, PERRL, EOMI. Absent: scleral icterus, conjunctival injection, periorbital swelling ENT exam: Present: normal exam, normal oropharynx, mucous membranes moist Neck exam: Present: normal inspection, full ROM. Absent: tenderness, meningismus, lymphadenopathy Respiratory exam: Present: normal lung sounds bilaterally. Absent: respiratory distress, wheezes, rales, rhonchi, stridor Cardiovascular Exam: Present: normal rhythm, tachycardia, normal heart sounds. Absent: systolic murmur, diastolic murmur, rubs, gallop, clicks GI/Abdominal exam: Present: soft, tenderness, normal bowel sounds. Absent: di stended, guarding, rebound, rigid Back exam: Absent: CVA tenderness (R), CVA tenderness (L) Course Vital Signs 04/06/24 06:22 Temperature 98.0 F Pulse Rate 124 H Respiratory 18 Rate Blood Pressure 181/106 O2 Sat by Pulse 100 Oximetry Medical Decision Making - Medical Decision Making Was pt. sent in by a medical professional or institution (, PA, SOILS ANALYST, urgent care, hospital, or care home...) When possible be specific @ -No Did you speak to anyone other than the patient for history (EMS, parent, family, police, friend...)? What history was obtained from this source @ -No Did you review nursing and triage notes (agree or disagree)? Why? @ -I reviewed and agree with nursing and triage notes Were old charts reviewed (outside hosp., previous admission, EMS record, old EKG, old radiological studies, urgent care reports/EKG's, care home records)? Report findings @ -No old charts were reviewed Differential Diagnosis (chest pain, altered mental status, abdominal pain women, abdominal pain men, vaginal bleeding, weakness, fever, dyspnea, syncope, headache, dizziness, GI bleed, back pain, seizure, CVA, palpatations, mental health, musculoskeletal)? @ -Differential Abdominal Pain Women: Appendicitis, Cholecystitis, diverticulosis, ischemic bowel, pancreatitis, hepatitis, UTI, gastroenteritis, AAA, incarcerated hernia, bowel obstruction, constipation, inflammatory bowel, hepatitis, peptic ulcer disease, splenic infarction, perforated viscus, vulvitis, ovarian torsion, PID, kidney stone, placenta abruption, this is not meant to be an all-inclusive list EKG interpreted by me (3pts min.). @ -As above X-rays interpreted by me (1pt min.). @ -None done CT interpreted by me (1pt min.). @ -None done U/S interpreted by me (1pt. min.). @ -None done What testing was considered but not performed or refused? (CT, X-rays, U/S, labs)? Why? @ -None What meds were considered but not given or refused? Why? @ -None Did you discuss the management of the patient with other professionals (professionals i.e. , PA, SOILS ANALYST, lab, RT, psych nurse, social media marketing manager, news producer, teacher, truant officer, special education case manager)? Give summary @ - for admission Was smoking cessation discussed for >3mins.? @ -No Was critical care preformed (if so, how long)? @ -No Were there social determinants of health that impacted care today? How? (Homelessness, low income, unemployed, alcoholism, drug addiction, transportation, low edu. Level, literacy, decrease access to med. care, intermediate, rehab)? @ -No Was there de-escalation of care discussed even if they declined (Discuss DNR or withdrawal of care, Hospice)? DNR status @ -No What co-morbidities impacted this encounter? (DM, HTN, Smoking, COPD, CAD, Cancer, CVA, ARF, Chemo, Hep., AIDS, mental health diagnosis, sleep apnea, morbid obesity)? @ -Diabetes, gastritis Was patient admitted / discharged? Hospital course, mention meds given and route, prescriptions, significant lab abnormalities, going to OR and other pertinent info. @ -Admitted patient presenting for nausea vomiting patient did receive multiple doses of antiemetics continues to have nausea patient require further hydration, glucose control. Patient does have mild metabolic acidosis. Hemoglobin stable she did have which that was mild hematemesis though she has had no recurrent episode of this, hemoglobin is stable. Patient will be admitted with close observation Undiagnosed new problem with uncertain prognosis? @ -No Drug Therapy requiring intensive monitoring for toxicity (Heparin, Nitro, Insulin, Cardizem)? @ -No Were any procedures done? @ -No Diagnosis/symptom? @ -Intractable nausea vomiting, dehydration, hyperglycemia, metabolic acidosis Acute, or Chronic, or Acute on Chronic? @ -Acute Uncomplicated (without systemic symptoms) or Complicated (systemic symptoms)? @ -complicated Side effects of treatment? @ -No Exacerbation, Progression, or Severe Exacerbation? @ -No Poses a threat to life or bodily function? How? (Chest pain, USA, OK, pneumonia, PE, COPD, DKA, ARF, appy, cholecystitis, CVA, Diverticulitis, Homicidal, Suici al[place], threat to staff... and all critical care pts) @ -yes - Lab Data Result diagrams: 04/06/24 07:05 04/06/24 07:05 Lab Results 04/06/24 04/06/24 04/06/24 Range/Units 07:05 07:05 07:05 WBC 17.3 H (3.8-10.6) k/uL RBC 4.27 (3.80-5.40) m/uL Hgb 10.6 L (11.4-16.0) gm/dL Hct 34.0 (34.0-46.0) % MCV 79.6 L (80.0-100.0) fL MCH 24.9 L (25.0-35.0) pg MCHC 31.2 (31.0-37.0) g/dL RDW 13.7 (11.5-15.5) % Plt Count 497 H (150-450) k/uL MPV 6.8 Neutrophils % 91 % Lymphocytes % 3 % Monocytes % 5 % Eosinophils % 0 % Basophils % 0 % Neutrophils # 15.8 H (1.3-7.7) k/uL Lymphocytes # 0.5 L (1.0-4.8) k/uL Monocytes # 0.8 (0-1.0) k/uL Eosinophils # 0.0 (0-0.7) k/uL Basophils # 0.0 (0-0.2) k/uL Hypochromasia Marked Sodium 135 L (137-145) mmol/L Potassium 4.8 (3.5-5.1) mmol/L Chloride 101 (98-107) mmol/L Carbon Dioxide 18 L (22-30) mmol/L Anion Gap 16 mmol/L BUN 25 H (7-17) mg/dL Creatinine 0.64 (0.52-1.04) mg/dL Est GFR (CKD-EPI)AfAm >90 (>60 ml/min/1.73 sqM) Est GFR (CKD-EPI)NonAf >90 (>60 ml/min/1.73 sqM) Glucose 495 H (74-99) mg/dL POC Glucose (mg/dL) (70-110) mg/dL POC Glu Shipping Lead ID Plasma Lactic Acid Carlos 1.5 (0.7-2.0) mmol/L Calcium 9.7 (8.4-10.2) mg/dL Magnesium 1.9 (1.6-2.3) mg/dL Total Bilirubin 0.6 (0.2-1.3) mg/dL AST 22 (14-36) U/L ALT 14 (4-34) U/L Alkaline Phosphatase 105 (38-126) U/L Total Protein 7.1 (6.3-8.2) g/dL Albumin 4.2 (3.5-5.0) g/dL Amylase 31 (30-110) U/L Lipase 53 (23-300) U/L Serum Alcohol <10 mg/dL 04/06/24 Range/Units 09:30 WBC (3.8-10.6) k/uL RBC (3.80-5.40) m/uL Hgb (11.4-16.0) gm/dL Hct (34.0-46.0) % MCV (80.0-100.0) fL MCH (25.0-35.0) pg MCHC (31.0-37.0) g/dL RDW (11.5-15.5) % Plt Count (150-450) k/uL MPV Neutrophils % % Lymphocytes % % Monocytes % % Eosinophils % % Basophils % % Neutrophils # (1.3-7.7) k/uL Lymphocytes # (1.0-4.8) k/uL Monocytes # (0-1.0) k/uL Eosinophils # (0-0.7) k/uL Basophils # (0-0.2) k/uL Hypochromasia Sodium (137-145) mmol/L Potassium (3.5-5.1) mmol/L Chloride (98-107) mmol/L Carbon Dioxide (22-30) mmol/L Anion Gap mmol/L BUN (7-17) mg/dL Creatinine (0.52-1.04) mg/dL Est GFR (CKD-EPI)AfAm (>60 ml/min/1.73 sqM) Est GFR (CKD-EPI)NonAf (>60 ml/min/1.73 sqM) Glucose (74-99) mg/dL POC Glucose (mg/dL) 360 H (70-110) mg/dL POC Glu Shipping Lead ID Clara Hu Plasma Lactic Acid Carlos (0.7-2.0) mmol/L Calcium (8.4-10.2) mg/dL Magnesium (1.6-2.3) mg/dL Total Bilirubin (0.2-1.3) mg/dL AST (14-36) U/L ALT (4-34) U/L Alkaline Phosphatase (38-126) U/L Total Protein (6.3-8.2) g/dL Albumin (3.5-5.0) g/dL Amylase (30-110) U/L Lipase (23-300) U/L Serum Alcohol mg/dL - EKG Data -: EKG Interpreted by Me EKG Comments: EKG performed at 9: 47 sinus tachycardia rate of 122 TN 134 QRS 86 QT/QTc 337/410 Disposition Clinical Impression: Intractable nausea and vomiting, Metabolic acidosis, Hyperglycemia, Dehydration Disposition: ADMITTED IP TO THIS HOSP Condition: Fair Referrals: Rivera Tripp DO [Primary Care Provider] - 1-2 days Time of Disposition: 09:49
[2024-04-06 07:23] LABS: Basophils % (A) 0 %; Eosinophils % (A) 0 %; HGB 10.6 gm/dL (11.4-16.0); Hypochromasia Marked; Lymphocytes # (A) 0.5 k/uL (1.0-4.8); Lymphocytes % (A) 3 %; MCH 24.9 pg (25.0-35.0); MCHC 31.2 g/dL (31.0-37.0); MCV 79.6 fL (80.0-100.0); Mean Platelet Volume 6.8; Monocytes # (A) 0.8 k/uL (0-1.0); Monocytes % (A) 5 %; Neutrophils # (A) 15.8 k/uL (1.3-7.7); Neutrophils % (A) 91 %; Platelet Count 497 k/uL (150-450); RBC 4.27 m/uL (3.80-5.40); RDW 13.7 % (11.5-15.5); WBC 17.3 k/uL (3.8-10.6)
[2024-04-06] MEDS: PANTOPRAZOLE 40 MG/10 ML VIAL IVP STA (07:23)
[2024-04-06] MEDS: HYDROmorphone 0.5 MG/0.5 ML SYRINGE IVP STA ×2 (07:23→07:36)
[2024-04-06] MEDS: diphenhydrAMINE 50 MG/ML 1 ML VIAL IVP STA (07:23)
[2024-04-06] MEDS: SODIUM CHLORIDE 0.9% 1,000 ML IV STA (07:24)
[2024-04-06] MEDS: SODIUM CHLORIDE 0.9% 500 ML 500 ML IV STA (07:24)
[2024-04-06] MEDS: METOCLOPRAMIDE 5 MG/ML 2 ML VIAL IVP STA (07:24)
[2024-04-06 07:33] LABS: ALT 14 U/L (4-34); AST 22 U/L (14-36); African American GFR (CKD) >90 (>60 ml/min/1.73 sqM); Albumin 4.2 g/dL (3.5-5.0); Alcohol <10 mg/dL; Alkaline Phosphatase 105 U/L (38-126); Amylase 31 U/L (30-110); Anion Gap 16 mmol/L; Blood Urea Nitrogen 25 mg/dL (7-17); Calcium 9.7 mg/dL (8.4-10.2); Carbon Dioxide 18 mmol/L (22-30); Chloride 101 mmol/L (98-107); Glucose 495 mg/dL (74-99); Lipase 53 U/L (23-300); Magnesium 1.9 mg/dL (1.6-2.3); Non-African American GFR(CKD) >90 (>60 ml/min/1.73 sqM); Potassium 4.8 mmol/L (3.5-5.1); Sodium 135 mmol/L (137-145); Total Bilirubin 0.6 mg/dL (0.2-1.3); Total Protein 7.1 g/dL (6.3-8.2)
[2024-04-06] MEDS: INSULIN REGULAR 100 UNIT/ML VIAL (IV) IV ONE (08:06)
[2024-04-06 09:31] LABS: Glucose,Whole Blood 360 mg/dL (70-110)
[2024-04-06] MEDS ORDERED: DEXTROSE 50% SYRINGE 50 ML IVP PRN ×2 (09:47)
[2024-04-06] MEDS ORDERED: NALOXONE 0.4 MG/ML 1 ML VIAL IV PRN (09:49)
[2024-04-06] MEDS: SODIUM CHLORIDE 0.9% 500 ML 500 ML IV ONE (09:53)
[2024-04-06] MEDS: SODIUM CHLORIDE 0.9% 1,000 ML IV SCH (09:54)
[2024-04-06] MEDS: droPERidol 5 MG/2 ML VIAL IVP ONE (09:56)
[2024-04-06 10:21] LABS: Appearance,Urine Turbid (Clear); Bilirubin,Urine Negative (Negative); Blood,Urine Large (Negative); Budding Yeast,Urine Few /hpf; Color,Urine Colorless; Glucose,Urine (UA) 4+ (Negative); Leukocyte Esterase,Urine Large (Negative); Mucus,Urine Rare /hpf; Nitrite,Urine Negative (Negative); PH, Urine 5.5 (5.0-8.0); Protein,Urine 1+ (Negative); RBC,Urine 135 /hpf (0-5); Specific Gravity,Urine 1.021 (1.001-1.035); Squamous Epithelial Cell,Urine 1 /hpf (0-4); Urobilinogen,Urine <2.0 mg/dL (<2.0); WBC,Urine >182 /hpf (0-5)
[2024-04-06 10:28] LABS: Ketones,Urine 2+ (Negative)
[2024-04-06] MEDS: levETIRAcetam 500 MG TAB PO STA (10:51)
[2024-04-06] MEDS: HYDROmorphone 0.5 MG/0.5 ML SYRINGE IVP PRN (11:24)
[2024-04-06] MEDS: METOCLOPRAMIDE 5 MG/ML 2 ML VIAL IVP SCH (11:29)
[2024-04-06] MEDS ORDERED: MECLIZINE 12.5 MG TAB PO PRN (11:39)
[2024-04-06] MEDS ORDERED: ALBUTEROL NEBULIZED 2.5 MG/3 ML INHALATION PRN (11:39)
[2024-04-06] MEDS ORDERED: CYCLOBENZAPRINE 10 MG TAB PO PRN (11:39)
[2024-04-06 11:52] LABS: Glucose,Whole Blood 390 mg/dL (70-110)
--- NOTE | 2024-04-06 11:59 | CT ---
EXAMINATION TYPE: CT abdomen pelvis w con CT DLP: 692.2 mGycm, Automated exposure control for dose reduction was used. DATE OF EXAM: 04/06/2024 11:46 AM COMPARISON: CT abdomen pelvis most recent from 01/27/2024 . CLINICAL INDICATION:Female, 44 years old with history of Abdominal pain; VOMITING COFFEE GROUNDS TECHNIQUE: Standard CT of the abdomen and pelvis following the administration of 100 cc of Isovue 3 00 IV contrast material. Coronal and sagittal reformats were performed. FINDINGS: LOWER CHEST: Posterior dependent subsegmental atelectasis is noted. Mild cardiomegaly. No visualized pericardial effusion. ABDOMEN LIVER: Unremarkable GALLBLADDER AND BILE DUCTS: The gallbladder is surgically absent. No biliary ductal dilatation. PANCREAS: Unremarkable. SPLEEN: Unremarkable. ADRENAL GLANDS: Unremarkable. KIDNEYS AND URETERS: No evidence of hydronephrosis. The kidneys enhance symmetrically. Punctate singl e bilateral nonobstructive calculi identified. Nonspecific bilateral perinephric fat stranding with r ight greater than left. PELVIS BLADDER: Bladder wall thickening on the anterior wall. REPRODUCTIVE: Unremarkable. ABDOMEN & PELVIS STOMACH AND BOWEL: Stomach and duodenum are unremarkable. The appendix is within normal limits. Mild colonic stool burden. No evidence of bowel obstruction. No hyperdense material identified within the bowel. PERITONEUM: No evidence of pneumoperitoneum or free fluid. VASCULATURE: No evidence of aortic aneurysm. MUSCULOSKELETAL: No acute osseous abnormalities LYMPH NODES: No gross evidence for lymphadenopathy. SOFT TISSUE/ABDOMINAL WALL: Minimal diffuse anasarca. IMPRESSION: 1. Urinary bladder wall thickening which may relate to under distention versus cystitis. Correlate w ith urinalysis. 2. Nonobstructive bilateral renal calculi. 3. Mild colonic stool burden. No evidence for obstruction.
[2024-04-06] MEDS: INSULIN ASPART (NovoLOG) 100 UNIT/ML VIAL SQ SCH (12:04)
--- NOTE | 2024-04-06 13:34 | P.HPIM ---
History of Present Illness H&P Date: 04/06/24 History of present illness; patient is 44-year-old lady with past medical history significant for seizures, diabetes mellitus who presented to the ER because of nausea and vomiting. Patient stated that she was all right last night when she started experiencing nausea and vomiting. Patient also having abdominal pain mostly in the right lower quadrant, intermittent, nonradiating. Patient also noticed that the vomitus was dark in color, not sure if it was bloody. Patient denies any fever or chills. There was no complaint of any orthopnea or PND. Denies any chest pain. Because of the symptoms, patient presented to the ER Initial lab work done in the ER showed WBC 17.3, hemoglobin 10.6, platelet count 497, sodium 135, potassium 4.8, anion gap is 16 CO2 18, BUN 25, glucose 495 calcium 9.7, magnesium 1.9, bilirubin 0.6, AST 22, ALT 14, lipase 53 UA done showed large amount of leukocyte Estrace, large amount of WBC, EKG done in the ER showed heart rate of 122, no ST segment elevation or depression seen, no T-wave inversions seen. Patient admitted to internal medicine service REVIEW OF SYSTEMS: CONSTITUTIONAL: No fever, no malaise, no fatigue. HEENT: No recent visual problems or hearing problems. Denied any sore throat. CARDIOVASCULAR: No chest pain, orthopnea, PND, no palpitations, no syncope. PULMONARY: No shortness of breath, no cough, no hemoptysis. GASTROINTESTINAL: As mentioned above NEUROLOGICAL: No headaches, no weakness, no numbness. HEMATOLOGICAL: Denies any bleeding or petechiae. GENITOURINARY: Denies any burning micturition, frequency, or urgency. MUSCULOSKELETAL/RHEUMATOLOGICAL: Denies any joint pain, swelling, or any muscle pain. ENDOCRINE: Denies any polyuria or polydipsia. The rest of the 14-point review of systems is negative. PHYSICAL EXAMINATION: GENERAL: The patient is alert and oriented x3, not in any acute distress. Well developed, well nourished. HEENT: Pupils are round and equally reacting to light. EOMI. No scleral icterus. No conjunctival pallor. Normocephalic, atraumatic. No pharyngeal erythema. No thyromegaly. CARDIOVASCULAR: S1 and S2 present. No murmurs, rubs, or gallops. PULMONARY: Chest is clear to auscultation, no wheezing or crackles. ABDOMEN: Soft, nontender, nondistended, normoactive bowel sounds. No palpable organomegaly. MUSCULOSKELETAL: No joint swelling or deformity. EXTREMITIES: No cyanosis, clubbing, or pedal edema. NEUROLOGICAL: Gross neurological examination did not reveal any focal deficits. SKIN: No rashes. Assessment and plan Nausea and vomiting Hyperglycemia UTI Abdominal pain Insulin-dependent diabetes mellitus Seizures Monitor vital signs Monitor CBC Monitor CMP Continue telemetry monitoring Ordered antiemetics Ordered IV Protonix 40 mg twice a day Ordered IV fluids Ordered sliding scale insulin Resume home meds Labs and medication were reviewed.. Continue same treatment. Continue with symptomatic treatment. Resume home medication. Monitor labs and vitals. DVT and GI prophylaxis. Further recommendations as per clinical course of the patient Dictation was produced using [employer] dictation software. please excuse any grammatical, word or spelling errors. Past Medical History Past Medical History: Asthma, Diabetes Mellitus, GI Bleed, Seizure Disorder Additional Past Medical History / Comment(s): NIDDM type II, grand mall seizure once in 2017, lower GI bleed, mild diverticular dx, PCOS, bronchitis, pneumonia, migraines, allergic rhinitis. Kidney stones History of Any Multi-Drug Resistant Organisms: MRSA, None Reported Date of last positivie culture/infection: 2011 MDRO Source:: Lungs Past Surgical History: Section, Tubal Ligation Additional Past Surgical History / Comment(s): colonoscopies, R groin mole removed then resected d/t abnormal cells-bening. Past Anesthesia/Blood Transfusion Reactions: No Reported Reaction Past Psychological History: No Psychological Hx Reported Smoking Status: Never smoker Past Alcohol Use History: Rare Past Drug Use History: None Reported - Past Family History Father Family Medical History: Cancer Additional Family Medical History / Comment(s): COLON, MELANOMA ON HIS CHEST AND HE ALSO HAS BENIGN BRAIN TUMORS 2, diabetes, pancreatic cancer. FATHER IS alive. Mother Family Medical History: Cancer, Dialysis Additional Family Medical History / Comment(s): MELANOMA THAT METASTASIZED TO THE BRAIN- FROM AT AGE 49 YRS. Mother had an FL at age 34 with angioplasty at age 36 yrs and another FL, and history of diabetes. Patient has many aunts, uncles and nieces with diabetes on her mother's side. Brother(s) Additional Family Medical History / Comment(s): Patient has one half-brother with kidney stones, full brother with no major medical problems. Patient has 1 sister with no major medical problems. Daughter(s) Additional Family Medical History / Comment(s): Patient has 2 daughters and her youngest daughter has history of seizure disorder. Patient has one son with no major medical problems. Medications and Allergies Home Medications Medication Instructions Recorded Confirmed Type Albuterol Inhaler [Ventolin Hfa 1 - 2 puff INHALATION RT-Q6H PRN 04/15/17 11/11/23 History Inhaler] HYDROcodone/APAP 10-325MG [[place] 1 tab PO Q6H PRN 01/14/18 11/11/23 History 10-325] Cholecalciferol [Vitamin D3 (25 25 mcg PO HS 03/26/23 11/11/23 History Mcg = 1000 Iu)] Loratadine [Claritin] 10 mg PO DAILY 03/26/23 11/11/23 History Propranolol [Inderal] 20 mg PO DAILY 03/27/23 11/11/23 History Glucagon Emergency Kit 1 mg IM ONCE PRN 07/10/23 11/11/23 History INSULIN LISPRO (humaLOG) [humaLOG] See Protocol SQ AC-TID 07/10/23 11/11/23 History Insulin Detemir [Levemir Flexpen] 14 units SQ DAILY 07/10/23 11/11/23 History Famotidine [Pepcid] 20 mg PO BID PRN 07/25/23 11/11/23 History Naloxone HCl [Narcan] 4 mg NASAL ONCE PRN 07/25/23 11/11/23 History Acetaminophen Tab [Tylenol] 1,000 mg PO Q6H PRN 08/29/23 11/11/23 History levETIRAcetam [Keppra] 500 mg PO HS 08/29/23 11/11/23 History Metoclopramide [Reglan] 10 mg PO TID PRN #15 tab 09/05/23 11/11/23 Rx Ondansetron Odt [Zofran Odt] 4 mg PO Q8HR PRN #20 tab 09/05/23 11/11/23 Rx Cyclobenzaprine [Flexeril] 10 mg PO BID PRN 11/11/23 11/11/23 History Dicyclomine [Bentyl] 10 mg PO TID PRN 11/11/23 11/11/23 History Ferrous Sulfate [Feosol] 325 mg PO DAILY 11/11/23 11/11/23 History Lactulose 20 gm PO BID PRN 11/11/23 11/11/23 History Lidocaine-Prilocaine Cream [Emla 1 applic TOPICAL BID PRN 11/11/23 11/11/23 History Cream 2.5%/2.5%] Mupirocin 2% Oint [Bactroban 2% 1 applic TOPICAL BID 11/11/23 11/11/23 History Oint] Pantoprazole [Protonix] 40 mg PO DAILY 11/11/23 11/11/23 History Allergies Allergy/AdvReac Type Severity Reaction Status Date / Time codeine AdvReac Nausea & Verified 11/11/23 16:24 Vomiting morphine AdvReac Nausea & Verified 11/11/23 16:24 Vomiting Penicillins AdvReac Nausea & Verified 11/11/23 16:24 Vomiting Sulfa (Sulfonamide AdvReac Nausea & Verified 11/11/23 16:24 Antibiotics) Vomiting tramadol AdvReac Unknown Verified 11/11/23 16:24 Physical Exam Vitals: Vital Signs Temp Pulse Resp BP Pulse Ox 04/06/24 06:22 98.0 F 124 H 18 181/106 100 Intake and Output 04/05/24 04/06/24 04/06/24 22:59 06:59 14:59 Other: Weight 58.967 kg Results CBC & Chem 7: 04/06/24 07:05 04/06/24 07:05 Labs: Abnormal Lab Results - Last 24 Hours (Table) 04/06/24 04/06/24 04/06/24 Range/Units 07:05 07:05 09:30 WBC 17.3 H (3.8-10.6) k/uL Hgb 10.6 L (11.4-16.0) gm/dL MCV 79.6 L (80.0-100.0) fL MCH 24.9 L (25.0-35.0) pg Plt Count 497 H (150-450) k/uL Neutrophils # 15.8 H (1.3-7.7) k/uL Lymphocytes # 0.5 L (1.0-4.8) k/uL Sodium 135 L (137-145) mmol/L Carbon Dioxide 18 L (22-30) mmol/L BUN 25 H (7-17) mg/dL Glucose 495 H (74-99) mg/dL POC Glucose (mg/dL) 360 H (70-110) mg/dL Urine Appearance (Clear) Urine Protein (Negative) Urine Glucose (UA) (Negative) Urine Ketones (Negative) Urine Blood (Negative) Ur Leukocyte Esterase (Negative) Urine RBC (0-5) /hpf Urine WBC (0-5) /hpf Urine WBC Clumps (None) /hpf Urine Mucus (None) /hpf Urine Yeast (Budding) (None) /hpf 04/06/24 Range/Units 09:34 WBC (3.8-10.6) k/uL Hgb (11.4-16.0) gm/dL MCV (80.0-100.0) fL MCH (25.0-35.0) pg Plt Count (150-450) k/uL Neutrophils # (1.3-7.7) k/uL Lymphocytes # (1.0-4.8) k/uL Sodium (137-145) mmol/L Carbon Dioxide (22-30) mmol/L BUN (7-17) mg/dL Glucose (74-99) mg/dL POC Glucose (mg/dL) (70-110) mg/dL Urine Appearance Turbid H (Clear) Urine Protein 1+ H (Negative) Urine Glucose (UA) 4+ H (Negative) Urine Ketones 2+ H (Negative) Urine Blood Large H (Negative) Ur Leukocyte Esterase Large H (Negative) Urine RBC 135 H (0-5) /hpf Urine WBC >182 H (0-5) /hpf Urine WBC Clumps Many H (None) /hpf Urine Mucus Rare H (None) /hpf Urine Yeast (Budding) Few H (None) /hpf
[2024-04-06 16:24] LABS: Glucose,Whole Blood 304 mg/dL (70-110)
[2024-04-06 20:50] LABS: Glucose,Whole Blood 338 mg/dL (70-110)
[2024-04-06] MEDS: levETIRAcetam 500 MG TAB PO SCH (21:59)
[2024-04-06] MEDS: ATORVASTATIN 80 MG TAB PO SCH (22:00)
[2024-04-06] MEDS: PANTOPRAZOLE 40 MG/10 ML VIAL IV SCH (22:00)
[2024-04-06] MEDS: ONDANSETRON 4 MG/2 ML VIAL IVP PRN (22:00)
[2024-04-07 05:31] LABS: Glucose,Whole Blood 264 mg/dL (70-110)
[2024-04-07] MEDS: LORATADINE 10 MG TAB PO SCH (09:08)
[2024-04-07] MEDS: PROPRANOLOL 20 MG TAB PO SCH (09:08)
[2024-04-07] MEDS: FAMOTIDINE 20 MG TAB PO SCH (09:08)
[2024-04-07] MEDS: INSULIN DETEMIR (LEVEMIR) 100 UNIT/ML SYR SQ SCH ×2 (11:22→20:51)
[2024-04-07 11:27] LABS: ALT 11 U/L (4-34); AST 15 U/L (14-36); African American GFR (CKD) >90 (>60 ml/min/1.73 sqM); Albumin 3.6 g/dL (3.5-5.0); Albumin/Globulin Ratio 1.2; Alkaline Phosphatase 81 U/L (38-126); Anion Gap 14 mmol/L; Blood Urea Nitrogen 19 mg/dL (7-17); Calcium 9.5 mg/dL (8.4-10.2); Carbon Dioxide 15 mmol/L (22-30); Chloride 116 mmol/L (98-107); Glucose 282 mg/dL (74-99); Non-African American GFR(CKD) >90 (>60 ml/min/1.73 sqM); Potassium 4.5 mmol/L (3.5-5.1); Sodium 145 mmol/L (137-145); Total Bilirubin 0.4 mg/dL (0.2-1.3); Total Protein 6.6 g/dL (6.3-8.2)
[2024-04-07 11:34] LABS: Glucose,Whole Blood 270 mg/dL (70-110)
[2024-04-07 11:56] LABS: Basophils % (A) 0 %; Eosinophils % (A) 0 %; HCT 30.1 % (34.0-46.0); Hypochromasia Marked; Lymphocytes # (A) 0.7 k/uL (1.0-4.8); Lymphocytes % (A) 6 %; MCH 24.6 pg (25.0-35.0); MCHC 29.8 g/dL (31.0-37.0); MCV 82.4 fL (80.0-100.0); Mean Platelet Volume 6.4; Monocytes # (A) 0.9 k/uL (0-1.0); Monocytes % (A) 7 %; Neutrophils # (A) 10.9 k/uL (1.3-7.7); Neutrophils % (A) 85 %; Platelet Count 500 k/uL (150-450); RBC 3.66 m/uL (3.80-5.40); RDW 14.3 % (11.5-15.5); WBC 12.8 k/uL (3.8-10.6)
--- NOTE | 2024-04-07 12:38 | P.PN ---
Subjective Progress Note Date: 04/07/24 patient is 44-year-old lady with past medical history significant for seizures, diabetes mellitus who presented to the ER because of nausea and vomiting. Patient stated that she was all right last night when she started experiencing nausea and vomiting. Patient also having abdominal pain mostly in the right lower quadrant, intermittent, nonradiating. Patient also noticed that the vomitus was dark in color, not sure if it was bloody. Patient denies any fever or chills. There was no complaint of any orthopnea or PND. Denies any chest pain. Because of the symptoms, patient presented to the ER Initial lab work done in the ER showed WBC 17.3, hemoglobin 10.6, platelet count 497, sodium 135, potassium 4.8, anion gap is 16 CO2 18, BUN 25, glucose 495 calcium 9.7, magnesium 1.9, bilirubin 0.6, AST 22, ALT 14, lipase 53 UA done showed large amount of leukocyte Estrace, large amount of WBC, EKG done in the ER showed heart rate of 122, no ST segment elevation or depression seen, no T-wave inversions seen. Patient admitted to internal medicine service 04/07. Patient seen and examined. States she feels better compared to yesterday. Currently on clear liquid diet. States nausea and vomiting has improved REVIEW OF SYSTEMS: CONSTITUTIONAL: No fever, no malaise,. CARDIOVASCULAR: No chest pain, no palpitations, no syncope. PULMONARY: No shortness of breath, no cough, GASTROINTESTINAL: No diarrhea, no abdominal pain NEUROLOGICAL: No headaches, no weakness, PHYSICAL EXAMINATION: GENERAL: The patient is alert and oriented x3, not in any acute distress. Well developed, well nourished. HEENT: Pupils are round and equally reacting to light. EOMI. No scleral icterus. No conjunctival pallor. Normocephalic, atraumatic. No pharyngeal erythema. No thyromegaly. CARDIOVASCULAR: S1 and S2 present. No murmurs, rubs, or gallops. PULMONARY: Chest is clear to auscultation, no wheezing or crackles. ABDOMEN: Soft, nontender, nondistended, normoactive bowel sounds. No palpable organomegaly. MUSCULOSKELETAL: No joint swelling or deformity. EXTREMITIES: No cyanosis, clubbing, or pedal edema. NEUROLOGICAL: Gross neurological examination did not reveal any focal deficits. SKIN: No rashes. Assessment and plan Nausea and vomiting Hyperglycemia UTI Abdominal pain Insulin-dependent diabetes mellitus Seizures Monitor vital signs Monitor CBC Monitor CMP Continue telemetry monitoring Continue antiemetics Continue IV Protonix 40 mg twice a day Continue IV fluids Continue sliding-scale insulin, Advance diet as tolerated Continue IV Rocephin Labs and medication were reviewed.. Continue same treatment. Continue with symptomatic treatment. Resume home medication. Monitor labs and vitals. DVT and GI prophylaxis. Further recommendations as per clinical course of the patient Dictation was produced using [employer] dictation software. please excuse any grammatical, word or spelling errors. Objective - Vital Signs Vital signs: Vital Signs Temp 98.3 F 04/07/24 07:00 Pulse 121 H 04/07/24 07:00 Resp 17 04/07/24 07:00 BP 161/97 04/07/24 07:00 Pulse Ox 95 04/07/24 07:00 FiO2 Intake & Output 04/06/24 04/07/24 04/07/24 18:59 06:59 18:59 Intake Total 358 Balance 358 Weight 58.967 kg Intake: Oral 358 Other: # Voids 2 - Labs CBC & Chem 7: 04/07/24 10:48 04/07/24 10:48 Labs: Abnormal Lab Results - Last 24 Hours (Table) 04/06/24 04/06/24 04/06/24 Range/Units 11:50 16:22 20:48 POC Glucose (mg/dL) 390 H 304 H 338 H (70-110) mg/dL Hemoglobin A1c (<=6.0) % 04/07/24 04/07/24 Range/Units 03:43 05:30 POC Glucose (mg/dL) 264 H (70-110) mg/dL Hemoglobin A1c 15.3 H (<=6.0) %
[2024-04-07 17:05] LABS: Glucose,Whole Blood 256 mg/dL (70-110)
[2024-04-07 19:57] LABS: Glucose,Whole Blood 231 mg/dL (70-110)
[2024-04-08 05:41] LABS: Glucose,Whole Blood 173 mg/dL (70-110)
[2024-04-08 08:34] LABS: Basophils # (A) 0.06 X 10*3/uL (0.00-0.10); Basophils % (A) 0.6 %; Eosinophils # (A) 0.06 X 10*3/uL (0.04-0.35); Eosinophils % (A) 0.6 %; HCT 31.3 % (37.2-46.3); HGB 9.5 g/dL (12.0-15.0); Lymphocytes # (A) 1.08 X 10*3/uL (0.90-5.00); Lymphocytes % (A) 10.6 %; MCH 24.1 pg (27.0-32.0); MCHC 30.4 g/dL (32.0-37.0); MCV 79.2 FL (80.0-97.0); Mean Platelet Volume 9.2 FL (9.5-12.2); Monocytes # (A) 1.07 X 10*3/uL (0.20-1.00); Monocytes % (A) 10.5 %; NRBC Per 100 WBC 0 X 10*3/uL (0.00-0.01); Neutrophils # (A) 7.85 X 10*3/uL (1.80-7.70); Neutrophils % (A) 76.6 %; Platelet Count 449 X 10*3/uL (140-440); RBC 3.95 X 10*6/uL (4.10-5.20); RDW 14.1 % (11.5-14.5); WBC 10.23 X 10*3/uL (4.50-10.00)
[2024-04-08 08:59] LABS: ALT 10 U/L (8-44); AST 12 U/L (13-35); Albumin 3.5 g/dL (3.8-4.9); Albumin/Globulin Ratio 1.21 Ratio (1.60-3.17); Alkaline Phosphatase 84 U/L (41-126); Blood Urea Nitrogen 13.6 mg/dL (9.0-27.0); Carbon Dioxide 22.6 mmol/L (21.6-31.8); Chloride 109 mmol/L (96-109); Globulin 2.9 g/dL (1.6-3.3); Glucose 187 mg/dL (70-110); Potassium 3.8 mmol/L (3.5-5.5); Sodium 145 mmol/L (135-145); Total Bilirubin <0.2 mg/dL (0.3-1.2); Total Protein 6.4 g/dL (6.2-8.2)
[2024-04-08 11:59] LABS: Glucose,Whole Blood 199 mg/dL (70-110)
--- NOTE | 2024-04-08 12:13 | P.PN ---
Subjective Progress Note Date: 04/08/24 patient is 44-year-old lady with past medical history significant for seizures, diabetes mellitus who presented to the ER because of nausea and vomiting. Patient stated that she was all right last night when she started experiencing nausea and vomiting. Patient also having abdominal pain mostly in the right lower quadrant, intermittent, nonradiating. Patient also noticed that the vomitus was dark in color, not sure if it was bloody. Patient denies any fever or chills. There was no complaint of any orthopnea or PND. Denies any chest pain. Because of the symptoms, patient presented to the ER Initial lab work done in the ER showed WBC 17.3, hemoglobin 10.6, platelet count 497, sodium 135, potassium 4.8, anion gap is 16 CO2 18, BUN 25, glucose 495 calcium 9.7, magnesium 1.9, bilirubin 0.6, AST 22, ALT 14, lipase 53 UA done showed large amount of leukocyte Estrace, large amount of WBC, EKG done in the ER showed heart rate of 122, no ST segment elevation or depression seen, no T-wave inversions seen. Patient admitted to internal medicine service 04/07. Patient seen and examined. States she feels better compared to yesterday. Currently on clear liquid diet. States nausea and vomiting has improved 04/08. Patient seen and examined. Still complaining of nausea and vomiting REVIEW OF SYSTEMS: CONSTITUTIONAL: No fever, no malaise,. CARDIOVASCULAR: No chest pain, no palpitations, no syncope. PULMONARY: No shortness of breath, no cough, GASTROINTESTINAL: No diarrhea, no abdominal pain NEUROLOGICAL: No headaches, no weakness, PHYSICAL EXAMINATION: GENERAL: The patient is alert and oriented x3, not in any acute distress. Well developed, well nourished. HEENT: Pupils are round and equally reacting to light. EOMI. No scleral icterus. No conjunctival pallor. Normocephalic, atraumatic. No pharyngeal erythema. No thyromegaly. CARDIOVASCULAR: S1 and S2 present. No murmurs, rubs, or gallops. PULMONARY: Chest is clear to auscultation, no wheezing or crackles. ABDOMEN: Soft, nontender, nondistended, normoactive bowel sounds. No palpable organomegaly. MUSCULOSKELETAL: No joint swelling or deformity. EXTREMITIES: No cyanosis, clubbing, or pedal edema. NEUROLOGICAL: Gross neurological examination did not reveal any focal deficits. SKIN: No rashes. Assessment and plan Nausea and vomiting Hyperglycemia UTI Abdominal pain Insulin-dependent diabetes mellitus Seizures Monitor vital signs Monitor CBC Monitor CMP Continue telemetry monitoring Continue antiemetics Continue IV Protonix 40 mg twice a day Continue IV fluids Continue sliding-scale insulin, Advance diet as tolerated Continue IV Rocephin Consult surgery Labs and medication were reviewed.. Continue same treatment. Continue with symptomatic treatment. Resume home medication. Monitor labs and vitals. DVT and GI prophylaxis. Further recommendations as per clinical course of the patient Dictation was produced using [employer] dictation software. please excuse any grammatical, word or spelling errors. Objective - Vital Signs Vital signs: Vital Signs Temp 98.5 F 04/08/24 07:35 Pulse 94 04/08/24 07:35 Resp 19 04/08/24 07:35 BP 171/104 04/08/24 07:35 Pulse Ox 94 L 04/08/24 07:35 FiO2 Intake & Output 04/07/24 04/08/24 04/08/24 18:59 06:59 18:59 Intake Total 476 298 Balance 476 298 Intake: Oral 476 298 Other: # Voids 3 2 - Labs CBC & Chem 7: 04/08/24 05:35 04/08/24 05:35 Labs: Abnormal Lab Results - Last 24 Hours (Table) 04/07/24 04/07/24 04/08/24 Range/Units 17:02 19:56 05:35 WBC 10.23 H (4.50-10.00) X 10*3/uL RBC 3.95 L (4.10-5.20) X 10*6/uL Hgb 9.5 L (12.0-15.0) g/dL Hct 31.3 L (37.2-46.3) % MCV 79.2 L (80.0-97.0) FL MCH 24.1 L (27.0-32.0) pg MCHC 30.4 L (32.0-37.0) g/dL Plt Count 449 H (140-440) X 10*3/uL MPV 9.2 L (9.5-12.2) FL Immature Gran # 0.11 H (0.00-0.04) X 10*3/uL Neutrophils # 7.85 H (1.80-7.70) X 10*3/uL Monocytes # 1.07 H (0.20-1.00) X 10*3/uL Anion Gap (4.00-12.00) mmol/L Creatinine (0.6-1.5) mg/dL BUN/Creatinine Ratio (12.00-20.00) Ratio Glucose (70-110) mg/dL POC Glucose (mg/dL) 256 H 231 H (70-110) mg/dL Total Bilirubin (0.3-1.2) mg/dL AST (13-35) U/L Albumin (3.8-4.9) g/dL Albumin/Globulin Ratio (1.60-3.17) Ratio 04/08/24 04/08/24 04/08/24 Range/Units 05:35 05:39 11:58 WBC (4.50-10.00) X 10*3/uL RBC (4.10-5.20) X 10*6/uL Hgb (12.0-15.0) g/dL Hct (37.2-46.3) % MCV (80.0-97.0) FL MCH (27.0-32.0) pg MCHC (32.0-37.0) g/dL Plt Count (140-440) X 10*3/uL MPV (9.5-12.2) FL Immature Gran # (0.00-0.04) X 10*3/uL Neutrophils # (1.80-7.70) X 10*3/uL Monocytes # (0.20-1.00) X 10*3/uL Anion Gap 13.40 H (4.00-12.00) mmol/L Creatinine 0.4 L (0.6-1.5) mg/dL BUN/Creatinine Ratio 34.00 H (12.00-20.00) Ratio Glucose 187 H (70-110) mg/dL POC Glucose (mg/dL) 173 H 199 H (70-110) mg/dL Total Bilirubin <0.2 L (0.3-1.2) mg/dL AST 12 L (13-35) U/L Albumin 3.5 L (3.8-4.9) g/dL Albumin/Globulin Ratio 1.21 L (1.60-3.17) Ratio
[2024-04-08 12:32] VITALS: BMI 23.8
--- NOTE | 2024-04-08 13:13 | P.GSCN ---
History of Present Illness Consult date: 04/08/24 History of present illness: CHIEF COMPLAINT: Nausea vomiting abdominal pain HISTORY OF PRESENT ILLNESS: This is a 44-year-old female who presented to the hospital with complaints of epigastric abdominal pain and nausea and vomiting that started 2 days ago. She is reports having the symptoms intermittently over the last year. Her emesis that she reports looks like coffee grounds. She does have a history of a stomach ulcer. Last EGD was in July 2023 and reported erosive esophagitis. Patient continues to use NSAIDs on a daily basis. She is also being treated for UTI. She has history of cholecystectomy. CT scan abdomen had reported mild stool burden. Patient reports that she has had bowel movements. And she has had bowel movements after the CAT scan was completed. She does report problems with constipation. PAST MEDICAL HISTORY: Asthma, Diabetes Mellitus, GI Bleed, Seizure Disorder, Diverticulosis PAST SURGICAL HISTORY: Cholecystectomy EGD and colonoscopy MEDICATIONS: See below ALLERGIES: See below SOCIAL HISTORY: No illicit drug use. Denies smoking or EtOH use REVIEW OF SYSTEMS: CONSTITUTIONAL: Denies fever or chills. HEENT: Denies blurred vision, vision changes, or eye pain. Denies hemoptysis CARDIOVASCULAR: Denies chest pain or pressure. RESPIRATORY: No shortness of breath. GASTROINTESTINAL: See HPI for pertinent findings HEMATOLOGIC: Denies bleeding disorders. GENITOURINARY: Denies any blood in urine or increased urinary frequency. SKIN: Denies pruitis. Denies rash. PHYSICAL EXAM: VITAL SIGNS: Reviewed GENERAL: Well-developed in no acute distress. HEENT: No sclera icterus. Extraocular movements grossly intact. Moist buccal mucosa. Head is atraumatic, normocephalic. No nasal drainage. ABDOMEN: Soft. Nondistended. Tenderness to palpation to the epigastric area and right lower abdomen NEUROLOGIC: Alert and oriented. Cranial nerves II through XII grossly intact. LABORATORY DATA: WBC 17.3 down to 10.23 Hgb 10.6 down to 9.5 platelets 449 Sodium 145 potassium 3.8 creatinine 0.4 Hemoglobin A1c 15.3 IMAGING: CT scan abdomen pelvis reports urinary bladder wall thickening which may relate to underdistention versus cystitis. Nonobstructing bilateral renal calculi. Mild colonic stool burden. No evidence for obstruction ASSESSMENT: 1. Nausea and vomiting with coffee-ground emesis 2. Acute GI bleed 3. Anemia. Possible acute blood loss anemia 4. Daily NSAID use 5. History of peptic ulcer disease 6. Uncontrolled diabetes mellitus 7. UTI PLAN: -Patient scheduled for EGD with Dr. Acosta tomorrow -N.p.o. after midnight -Continue IV Protonix twice a day -Continue to monitor for any signs or symptoms of bleeding -Continue to monitor hemoglobin -Avoid NSAIDs Physician Small Business Representative note has been reviewed by physician. Signing provider agrees with the documented findings, assessment, and plan of care. Past Medical History Past Medical History: Asthma, Diabetes Mellitus, GI Bleed, Seizure Disorder Additional Past Medical History / Comment(s): NIDDM type II, [place] seizure and stroke once in 2017, lower GI bleed, mild diverticular dx, PCOS, bronchitis, pneumonia, migraines, allergic rhinitis. Kidney stones History of Any Multi-Drug Resistant Organisms: MRSA, None Reported Year Discovered:: 2011 MDRO Source:: Lungs Past Surgical History: Section, Cholecystectomy, Tubal Ligation Additional Past Surgical History / Comment(s): colonoscopies, R groin mole removed then resected d/t abnormal cells-bening, kidney stones surgically removed Past Anesthesia/Blood Transfusion Reactions: No Reported Reaction Past Psychological History: No Psychological Hx Reported Additional Psychological History / Comment(s): Pt resides with her 2 children. Pt is independent. She drives. Smoking Status: Never smoker Past Alcohol Use History: Rare Additional Past Alcohol Use History / Comment(s): Patient is a lifelong nonsmoker. She denies any marijuana or street drug use. She drink alcohol rarely. She lives at home and has 3 children under the age of 19. She is a single parent. Past Drug Use History: None Reported - Past Family History Father Family Medical History: Cancer Additional Family Medical History / Comment(s): COLON, MELANOMA ON HIS CHEST AND HE ALSO HAS BENIGN BRAIN TUMORS 2, diabetes, pancreatic cancer. FATHER IS alive. Mother Family Medical History: Cancer, Dialysis Additional Family Medical History / Comment(s): MELANOMA THAT METASTASIZED TO THE BRAIN- FROM AT AGE 49 YRS. Mother had an DC at age 34 with angioplasty at age 36 yrs and another DC, and history of diabetes. Patient has many aunts, uncles and nieces with diabetes on her mother's side. Brother(s) Additional Family Medical History / Comment(s): Patient has one half-brother with kidney stones, full brother with no major medical problems. Patient has 1 sister with no major medical problems. Daughter(s) Additional Family Medical History / Comment(s): Patient has 2 daughters and her youngest daughter has history of seizure disorder. Patient has one son with no major medical problems. Medications and Allergies Home Medications Medication Instructions Recorded Confirmed Type Albuterol Inhaler [Ventolin Hfa 2 puff INHALATION RT-QID PRN 04/15/17 04/06/24 History Inhaler] HYDROcodone/APAP 10-325MG [[place] 1 tab PO TID PRN 01/14/18 04/06/24 History 10-325] Loratadine [Claritin] 10 mg PO DAILY 03/26/23 04/06/24 History Propranolol [Inderal] 20 mg PO DAILY 03/27/23 04/06/24 History Glucagon Emergency Kit 1 mg IM ONCE PRN 07/10/23 04/06/24 History Insulin Detemir [Levemir Flexpen] 12 - 14 units SQ [id number] 07/10/23 04/06/24 History Famotidine [Pepcid] 20 mg PO DAILY 07/25/23 04/06/24 History levETIRAcetam [Keppra] 500 mg PO BID 08/29/23 04/06/24 History Cyclobenzaprine [Flexeril] 10 mg PO BID PRN 11/11/23 04/06/24 History Lidocaine-Prilocaine Cream [[place] 1 applic TOPICAL BID PRN 11/11/23 04/06/24 History Cream 2.5%/2.5%] Pantoprazole [Protonix] 40 mg PO DAILY 11/11/23 04/06/24 History Insulin Lispro 10 units SQ TID-W/MEALS 04/06/24 04/06/24 History Insulin Lispro See Protocol SQ TID-W/MEALS 04/06/24 04/06/24 History Meclizine [Antivert] 12.5 mg PO TID PRN 04/06/24 04/06/24 History Midazolam [Nayzilam] 1 spray NASAL BID PRN 04/06/24 04/06/24 History Naproxen [EC-Naprosyn] 500 mg PO BID PRN 04/06/24 04/06/24 History Ondansetron Odt [Zofran ODT] 4 mg PO Q6H PRN 04/06/24 04/06/24 History Rosuvastatin Calcium [Crestor] 40 mg PO HS 04/06/24 04/06/24 History Allergies Allergy/AdvReac Type Severity Reaction Status Date / Time Penicillins Allergy Nausea & Verified 04/06/24 11:14 Vomiting, rash codeine AdvReac Nausea & Verified 04/06/24 11:14 Vomiting morphine AdvReac Nausea & Verified 04/06/24 11:14 Vomiting Sulfa (Sulfonamide AdvReac Nausea & Verified 04/06/24 11:14 Antibiotics) Vomiting, rash tramadol AdvReac Per Verified 04/06/24 11:14 patient, cannot take with Keppra Surgical - Exam Vital Signs Temp Pulse Resp BP Pulse Ox 98.0 F 124 H 18 181/106 100 04/06/24 06:22 04/06/24 06:22 04/06/24 06:22 04/06/24 06:22 04/06/24 06:22 Results - Labs 04/08/24 05:35 04/08/24 05:35 Abnormal Lab Results - Last 24 Hours (Table) 04/07/24 04/07/24 04/08/24 Range/Units 17:02 19:56 05:35 WBC 10.23 H (4.50-10.00) X 10*3/uL RBC 3.95 L (4.10-5.20) X 10*6/uL Hgb 9.5 L (12.0-15.0) g/dL Hct 31.3 L (37.2-46.3) % MCV 79.2 L (80.0-97.0) FL MCH 24.1 L (27.0-32.0) pg MCHC 30.4 L (32.0-37.0) g/dL Plt Count 449 H (140-440) X 10*3/uL MPV 9.2 L (9.5-12.2) FL Immature Gran # 0.11 H (0.00-0.04) X 10*3/uL Neutrophils # 7.85 H (1.80-7.70) X 10*3/uL Monocytes # 1.07 H (0.20-1.00) X 10*3/uL Anion Gap (4.00-12.00) mmol/L Creatinine (0.6-1.5) mg/dL BUN/Creatinine Ratio (12.00-20.00) Ratio Glucose (70-110) mg/dL POC Glucose (mg/dL) 256 H 231 H (70-110) mg/dL Total Bilirubin (0.3-1.2) mg/dL AST (13-35) U/L Albumin (3.8-4.9) g/dL Albumin/Globulin Ratio (1.60-3.17) Ratio 04/08/24 04/08/24 04/08/24 Range/Units 05:35 05:39 11:58 WBC (4.50-10.00) X 10*3/uL RBC (4.10-5.20) X 10*6/uL Hgb (12.0-15.0) g/dL Hct (37.2-46.3) % MCV (80.0-97.0) FL MCH (27.0-32.0) pg MCHC (32.0-37.0) g/dL Plt Count (140-440) X 10*3/uL MPV (9.5-12.2) FL Immature Gran # (0.00-0.04) X 10*3/uL Neutrophils # (1.80-7.70) X 10*3/uL Monocytes # (0.20-1.00) X 10*3/uL Anion Gap 13.40 H (4.00-12.00) mmol/L Creatinine 0.4 L (0.6-1.5) mg/dL BUN/Creatinine Ratio 34.00 H (12.00-20.00) Ratio Glucose 187 H (70-110) mg/dL POC Glucose (mg/dL) 173 H 199 H (70-110) mg/dL Total Bilirubin <0.2 L (0.3-1.2) mg/dL AST 12 L (13-35) U/L Albumin 3.5 L (3.8-4.9) g/dL Albumin/Globulin Ratio 1.21 L (1.60-3.17) Ratio Diabetes panel 04/08/24 Range/Units 05:35 Sodium 145 (135-145) mmol/L Potassium 3.8 (3.5-5.5) mmol/L Chloride 109 (96-109) mmol/L Carbon Dioxide 22.6 (21.6-31.8) mmol/L BUN 13.6 (9.0-27.0) mg/dL Creatinine 0.4 L (0.6-1.5) mg/dL Glucose 187 H (70-110) mg/dL Calcium 9.0 (8.7-10.3) mg/dL AST 12 L (13-35) U/L ALT 10 (8-44) U/L Alkaline Phosphatase 84 (41-126) U/L Total Protein 6.4 (6.2-8.2) g/dL Albumin 3.5 L (3.8-4.9) g/dL Calcium panel 04/08/24 Range/Units 05:35 Calcium 9.0 (8.7-10.3) mg/dL Albumin 3.5 L (3.8-4.9) g/dL Pituitary panel 04/08/24 Range/Units 05:35 Sodium 145 (135-145) mmol/L Potassium 3.8 (3.5-5.5) mmol/L Chloride 109 (96-109) mmol/L Carbon Dioxide 22.6 (21.6-31.8) mmol/L BUN 13.6 (9.0-27.0) mg/dL Creatinine 0.4 L (0.6-1.5) mg/dL Glucose 187 H (70-110) mg/dL Calcium 9.0 (8.7-10.3) mg/dL Adrenal panel 04/08/24 Range/Units 05:35 Sodium 145 (135-145) mmol/L Potassium 3.8 (3.5-5.5) mmol/L Chloride 109 (96-109) mmol/L Carbon Dioxide 22.6 (21.6-31.8) mmol/L BUN 13.6 (9.0-27.0) mg/dL Creatinine 0.4 L (0.6-1.5) mg/dL Glucose 187 H (70-110) mg/dL Calcium 9.0 (8.7-10.3) mg/dL Total Bilirubin <0.2 L (0.3-1.2) mg/dL AST 12 L (13-35) U/L ALT 10 (8-44) U/L Alkaline Phosphatase 84 (41-126) U/L Total Protein 6.4 (6.2-8.2) g/dL Albumin 3.5 L (3.8-4.9) g/dL
[2024-04-08 17:19] LABS: Glucose,Whole Blood 226 mg/dL (70-110)
[2024-04-08 20:32] LABS: Glucose,Whole Blood 207 mg/dL (70-110)
[2024-04-08] MEDS: HYDROcodone/APAP 10-325MG 1 EACH TAB PO PRN (20:41)
[2024-04-09 04:17] LABS: Basophils # (A) 0.1 k/uL (0-0.2); Basophils % (A) 1 %; Eosinophils # (A) 0.2 k/uL (0-0.7); Eosinophils % (A) 3 %; HCT 32.8 % (34.0-46.0); Hypochromasia Marked; Lymphocytes # (A) 1.2 k/uL (1.0-4.8); Lymphocytes % (A) 16 %; MCH 24.5 pg (25.0-35.0); MCHC 30.4 g/dL (31.0-37.0); MCV 80.6 fL (80.0-100.0); Mean Platelet Volume 6.6; Monocytes # (A) 0.5 k/uL (0-1.0); Monocytes % (A) 7 %; Neutrophils # (A) 5.2 k/uL (1.3-7.7); Neutrophils % (A) 70 %; Platelet Count 490 k/uL (150-450); RBC 4.06 m/uL (3.80-5.40); RDW 14.1 % (11.5-15.5); WBC 7.4 k/uL (3.8-10.6)
[2024-04-09 04:26] LABS: African American GFR (CKD) >90 (>60 ml/min/1.73 sqM); Anion Gap 7 mmol/L; Blood Urea Nitrogen 14 mg/dL (7-17); Carbon Dioxide 24 mmol/L (22-30); Chloride 110 mmol/L (98-107); Glucose 179 mg/dL (74-99); Non-African American GFR(CKD) >90 (>60 ml/min/1.73 sqM); Potassium 3.7 mmol/L (3.5-5.1); Sodium 141 mmol/L (137-145)
[2024-04-09 06:16] LABS: Glucose,Whole Blood 195 mg/dL (70-110)
[2024-04-09] MEDS ORDERED: PROPOFOL 10 MG/ML 20 ML VIAL IV ONE (11:08)
[2024-04-09] MEDS ORDERED: LIDOCAINE 1% INJ 10MG/ML (20 ML MDV) ONE (11:08)
[2024-04-09] MEDS: IV FLUID CONTINUATION 1,000 ML IV ONE (11:08)
--- NOTE | 2024-04-09 11:24 | P.OP ---
Date of Procedure: 04/09/24 Preoperative Diagnosis: Nausea, vomiting Postoperative Diagnosis: Mild antral gastritis Procedure(s) Performed: EGD Anesthesia: MAC Surgeon: Walter Acosta Pathology: other (Antrum) Condition: stable Disposition: PACU Description of Procedure: Patient was placed on the endoscopy table in the lateral position. She received IV sedation. The gas was placed oropharynx passed in the esophagus stomach. Scope was placed through the pylorus. The first and second portion of the duodenum appeared normal. The scope was then brought back to the antrum this appeared mildly inflamed. A biopsy was performed. The scope was then retroflexed remainder of the stomach appeared normal. The GE junction was at 40 cm. The distal esophagus appeared normal. The proximal esophagus appeared normal. Scope withdrawn the patient.
[2024-04-09] MEDS: LACTATED RINGERS 1,000 ML IV SCH (11:55)
[2024-04-09 12:07] LABS: Glucose,Whole Blood 168 mg/dL (70-110)
--- NOTE | 2024-04-09 12:24 | P.DS ---
Providers Date of admission: 04/06/24 09:56 Expected date of discharge: 04/09/24 Attending physician: Paul Kumar Consults: 04/08/24 12:13 Consult Physician Routine Consulting Provider: Walter Acosta Consult Reason/Comments: Persistent nausea and vomiting Do you want consulting provider notified?: Yes Primary care physician: [facility] Course: Discharge diagnoses; Nausea and vomiting Hyperglycemia UTI Abdominal pain Insulin-dependent diabetes mellitus Seizures Hospital course; patient is 44-year-old lady with past medical history significant for seizures, diabetes mellitus who presented to the ER because of nausea and vomiting. Patient stated that she was all right last night when she started experiencing nausea and vomiting. Patient also having abdominal pain mostly in the right lower quadrant, intermittent, nonradiating. Patient also noticed that the vomitus was dark in color, not sure if it was bloody. Patient denies any fever or chills. There was no complaint of any orthopnea or PND. Denies any chest pain. Because of the symptoms, patient presented to the ER Initial lab work done in the ER showed WBC 17.3, hemoglobin 10.6, platelet count 497, sodium 135, potassium 4.8, anion gap is 16 CO2 18, BUN 25, glucose 495 calcium 9.7, magnesium 1.9, bilirubin 0.6, AST 22, ALT 14, lipase 53 UA done showed large amount of leukocyte Estrace, large amount of WBC, EKG done in the ER showed heart rate of 122, no ST segment elevation or depression seen, no T-wave inversions seen. Patient admitted to internal medicine service 04/07. Patient seen and examined. States she feels better compared to yesterday. Currently on clear liquid diet. States nausea and vomiting has improved 04/08. Patient seen and examined. Still complaining of nausea and vomiting 04/09. Patient seen and examined. Patient was valuated by surgery, recommend doing EGD. EGD was normal, patient being discharged stable condition PHYSICAL EXAMINATION: GENERAL: The patient is alert and oriented x3, not in any acute distress. Well developed, well nourished. HEENT: Pupils are round and equally reacting to light. EOMI. No scleral icterus. No conjunctival pallor. Normocephalic, atraumatic. No pharyngeal erythema. No thyromegaly. CARDIOVASCULAR: S1 and S2 present. No murmurs, rubs, or gallops. PULMONARY: Chest is clear to auscultation, no wheezing or crackles. ABDOMEN: Soft, nontender, nondistended, normoactive bowel sounds. No palpable organomegaly. MUSCULOSKELETAL: No joint swelling or deformity. EXTREMITIES: No cyanosis, clubbing, or pedal edema. NEUROLOGICAL: Gross neurological examination did not reveal any focal deficits. SKIN: No rashes. Dictation was produced using [employer] dictation software. please excuse any grammatical, word or spelling errors. Patient Condition at Discharge: Fair Plan - Discharge Summary Discharge Rx Participant: No New Discharge Prescriptions: Continue Albuterol Inhaler [Ventolin Hfa Inhaler] 2 puff INHALATION RT-QID PRN PRN Reason: Shortness Of Breath HYDROcodone/APAP 10-325MG [Frierson 10-325] 1 tab PO TID PRN PRN Reason: Pain Loratadine [Claritin] 10 mg PO DAILY levETIRAcetam [Keppra] 500 mg PO BID Pantoprazole [Protonix] 40 mg PO DAILY Meclizine [Antivert] 12.5 mg PO TID PRN PRN Reason: Vertigo Ondansetron Odt [Zofran ODT] 4 mg PO Q6H PRN PRN Reason: Nausea Naproxen [EC-Naprosyn] 500 mg PO BID PRN PRN Reason: Pain Insulin Lispro See Protocol SQ TID-W/MEALS Propranolol [Inderal] 20 mg PO DAILY Insulin Detemir [Levemir Flexpen] 12 - 14 units SQ AC-BRKFST Glucagon Emergency Kit 1 mg IM ONCE PRN PRN Reason: Hypocalcemia Famotidine [Pepcid] 20 mg PO DAILY Cyclobenzaprine [Flexeril] 10 mg PO BID PRN PRN Reason: Muscle Pain Lidocaine-Prilocaine Cream [Emla Cream 2.5%/2.5%] 1 applic TOPICAL BID PRN PRN Reason: Pain Rosuvastatin Calcium [Crestor] 40 mg PO HS Insulin Lispro 10 units SQ TID-W/MEALS Midazolam [Nayzilam] 1 spray NASAL BID PRN PRN Reason: Seizures Discharge Medication List Albuterol Inhaler [Ventolin Hfa Inhaler] 2 puff INHALATION RT-QID PRN 04/15/17 [History] HYDROcodone/APAP 10-325MG [Frierson 10-325] 1 tab PO TID PRN 01/14/18 [History] Loratadine [Claritin] 10 mg PO DAILY 03/26/23 [History] Propranolol [Inderal] 20 mg PO DAILY 03/27/23 [History] Glucagon Emergency Kit 1 mg IM ONCE PRN 07/10/23 [History] Insulin Detemir [Levemir Flexpen] 12 - 14 units SQ AC-BRKFST 07/10/23 [History] Famotidine [Pepcid] 20 mg PO DAILY 07/25/23 [History] levETIRAcetam [Keppra] 500 mg PO BID 08/29/23 [History] Cyclobenzaprine [Flexeril] 10 mg PO BID PRN 11/11/23 [History] Lidocaine-Prilocaine Cream [Emla Cream 2.5%/2.5%] 1 applic TOPICAL BID PRN 11/11/23 [History] Pantoprazole [Protonix] 40 mg PO DAILY 11/11/23 [History] Insulin Lispro 10 units SQ TID-W/MEALS 04/06/24 [History] Insulin Lispro See Protocol SQ TID-W/MEALS 04/06/24 [History] Meclizine [Antivert] 12.5 mg PO TID PRN 04/06/24 [History] Midazolam [Nayzilam] 1 spray NASAL BID PRN 04/06/24 [History] Naproxen [EC-Naprosyn] 500 mg PO BID PRN 04/06/24 [History] Ondansetron Odt [Zofran ODT] 4 mg PO Q6H PRN 04/06/24 [History] Rosuvastatin Calcium [Crestor] 40 mg PO HS 04/06/24 [History] Follow up Appointment(s)/Referral(s): Rivera Tripp DO [Primary Care Provider] - 1-2 days Discharge Disposition: HOME SELF-CARE
[2024-04-09 17:38] LABS: Glucose,Whole Blood 181 mg/dL (70-110)
[2024-04-09 20:52] LABS: Glucose,Whole Blood 204 mg/dL (70-110)
[2024-04-10 06:05] LABS: Glucose,Whole Blood 191 mg/dL (70-110)
--- NOTE | 2024-04-10 09:30 | P.PN ---
Subjective patient is 44-year-old lady with past medical history significant for seizures, diabetes mellitus who presented to the ER because of nausea and vomiting. Patient stated that she was all right last night when she started experiencing nausea and vomiting. Patient also having abdominal pain mostly in the right lower quadrant, intermittent, nonradiating. Patient also noticed that the vomitus was dark in color, not sure if it was bloody. Patient denies any fever or chills. There was no complaint of any orthopnea or PND. Denies any chest pain. Because of the symptoms, patient presented to the ER Initial lab work done in the ER showed WBC 17.3, hemoglobin 10.6, platelet count 497, sodium 135, potassium 4.8, anion gap is 16 CO2 18, BUN 25, glucose 495 calcium 9.7, magnesium 1.9, bilirubin 0.6, AST 22, ALT 14, lipase 53 UA done showed large amount of leukocyte Estrace, large amount of WBC, EKG done in the ER showed heart rate of 122, no ST segment elevation or depression seen, no T-wave inversions seen. Patient admitted to internal medicine service 04/10 patient is status post EGD yesterday which was unremarkable for Acute pathology No vomiting but patient is having dry heaves about 5 episodes yesterday and 2 episodes this morning She is not able to eat last night and this morning but she is willing to try some chicken breast for toays lunch pt is having no bowel movement , last one was three days ago, she is passing gas She states that she is having right-sided abdominal pain 7/10 for several months since March of last year on and off He will try Bentyl and she agrees She states she had 2 episodes of pancreatitis earlier however lipase during this admission was normal as well as amylase. Continue with IV fluids and patient does not want to change her antiemetic for now. Objective - Vital Signs Vital signs: Vital Signs Temp 98.0 F 04/10/24 07:57 Pulse 102 H 04/10/24 07:57 Resp 15 04/10/24 07:57 BP 156/95 04/10/24 07:57 Pulse Ox 98 04/10/24 07:57 FiO2 Intake & Output 04/09/24 04/10/24 04/10/24 18:59 06:59 18:59 Intake Total 318 Balance 318 Weight 58.967 kg Intake: IV 200 Oral 118 Other: # Voids 1 2 - Exam GENERAL: The patient is alert and oriented x3, not in any acute distress. Well developed, well nourished. HEENT: Pupils are round and equally reacting to light. EOMI. No scleral icterus. No conjunctival pallor. Normocephalic, atraumatic. No pharyngeal erythema. No thyromegaly. CARDIOVASCULAR: S1 and S2 present. No murmurs, rubs, or gallops. PULMONARY: Chest is clear to auscultation, no wheezing , no crackles. -ABDOMEN: Soft, right-sided tenderness, no rebound tenderness or guarding, nondistended, normoactive bowel sounds. No palpable organomegaly. MUSCULOSKELETAL: No joint swelling or deformity. EXTREMITIES: No cyanosis, clubbing, or pedal edema. NEUROLOGICAL: Gross neurological examination did not reveal any focal deficits. SKIN: No rashes. no petechiae. - Labs CBC & Chem 7: 04/09/24 03:45 04/09/24 03:45 Labs: Abnormal Lab Results - Last 24 Hours (Table) 04/09/24 04/09/24 04/09/24 Range/Units 12:06 17:35 20:48 POC Glucose (mg/dL) 168 H 181 H 204 H (70-110) mg/dL 04/10/24 Range/Units 06:03 POC Glucose (mg/dL) 191 H (70-110) mg/dL Assessment and Plan Assessment: Right-sided abdominal pain with nausea vomiting. EGD was unremarkable. Most likely irritable bowel syndrome Hyperglycemia UTI Abdominal pain Insulin-dependent diabetes mellitus Seizures Plan: Continue with IV fluids Continue with antiemetic Add Bentyl Continue with insulin with close monitoring of glucose Follow-up biopsy results for her EGD Labs and medication were reviewed.. Continue same treatment. Continue with symptomatic treatment. Resume home medication. Monitor labs and vitals. DVT and GI prophylaxis. Further recommendations as per clinical course of the patient DVT prophylaxis: Subcutaneous heparin GI Prophylaxis: Pepcid and Protonix Prognosis is guarded
[2024-04-10] MEDS: DICYCLOMINE 10 MG CAP PO SCH (09:36)
[2024-04-10 11:51] LABS: Glucose,Whole Blood 214 mg/dL (70-110)
--- NOTE | 2024-04-10 16:16 | P.PN ---
Subjective Progress Note Date: 04/10/24 CHIEF COMPLAINT: Intractable nausea and vomiting HISTORY OF PRESENT ILLNESS: The patient is a 44-year-old female admitted for intractable nausea and vomiting. She is status post upper endoscopy demo nstrating gastritis. ROS:No fevers or chills. No new chest pain. No productive sputum. Has gastr oparesis PHYSICAL EXAM: VITAL SIGNS: Reviewed CONSTITUTIONAL: Well developed and in no acute distress. EYES: Conjuctivae without sclera icterus. Extraocular movements grossly intact. HEAD, EARS, NOSE, THROAT: Moist buccal mucosa. Head is atraumatic, normocephalic. Hears conversational speech. No nasal drainage. RESPIRATORY: Non-labored respirations and equal bilateral excursions. CARDIOVASCULAR: Palpable 2+ radial pulses. ABDOMEN: No peritonitis. MUSCULOSKELETAL: No gross deformity of the lower extremities noted. No clubbing. No cyanosis. SKIN: Good skin turgor. Well perfused. NEUROLOGIC: Cranial nerves II through XII grossly intact. No focal or lateralizing signs. PSYCH: Appropriate affect. Alert and oriented to person, place and time. REPORTS: Upper endoscopy demonstrates gastritis. CLINICAL LABS: Reviewed. Labs show glucose over 200. ASSESSMENT: 1. Intractable nausea and vomiting 2. Gastritis 3. Diabetic gastroparesis PLAN: 1. She is clinically stable. 2. Discharge when medically stable. Objective - Vital Signs Vital signs: Vital Signs Temp 98.4 F 04/10/24 14:00 Pulse 97 04/10/24 14:00 Resp 16 04/10/24 14:00 BP 173/100 04/10/24 14:00 Pulse Ox 98 04/10/24 14:00 FiO2 Intake & Output 04/09/24 04/10/24 04/10/24 18:59 06:59 18:59 Intake Total 318 118 Balance 318 118 Weight 58.967 kg Intake: IV 200 Oral 118 118 Other: Voiding Method Toilet # Voids 1 2 3 - Labs CBC & Chem 7: 04/09/24 03:45 04/09/24 03:45 Labs: Abnormal Lab Results - Last 24 Hours (Table) 04/09/24 04/09/24 04/10/24 Range/Units 17:35 20:48 06:03 POC Glucose (mg/dL) 181 H 204 H 191 H (70-110) mg/dL 07/26/24 Range/Units 11:49 POC Glucose (mg/dL) 214 H (70-110) mg/dL
[2024-04-10 16:55] LABS: Glucose,Whole Blood 188 mg/dL (70-110)
[2024-04-10 19:40] LABS: Glucose,Whole Blood 190 mg/dL (70-110)
[2024-04-10] MEDS: diphenhydrAMINE 50 MG/ML 1 ML VIAL IVP PRN (20:33)
[2024-04-11 03:00] LABS: Appearance,Urine Cloudy (Clear); Bilirubin,Urine Negative (Negative); Blood,Urine Large (Negative); Budding Yeast,Urine Rare /hpf; Color,Urine Light Yellow; Glucose,Urine (UA) 4+ (Negative); Hyaline Casts,Urine 3 /lpf (0-2); Leukocyte Esterase,Urine Large (Negative); Mucus,Urine Rare /hpf; Nitrite,Urine Negative (Negative); PH, Urine 7.5 (5.0-8.0); Protein,Urine 2+ (Negative); RBC,Urine >182 /hpf (0-5); Specific Gravity,Urine 1.014 (1.001-1.035); Squamous Epithelial Cell,Urine 2 /hpf (0-4); Urobilinogen,Urine <2.0 mg/dL (<2.0); WBC,Urine >182 /hpf (0-5)
[2024-04-11 03:04] LABS: Ketones,Urine 3+ (Negative)
[2024-04-11 05:48] LABS: Glucose,Whole Blood 179 mg/dL (70-110)
[2024-04-11 12:07] LABS: Glucose,Whole Blood 236 mg/dL (70-110)
[2024-04-11 17:06] LABS: Glucose,Whole Blood 246 mg/dL (70-110)
--- NOTE | 2024-04-11 17:58 | P.PN ---
Subjective patient is 44-year-old lady with past medical history significant for seizures, diabetes mellitus who presented to the ER because of nausea and vomiting. Patient stated that she was all right last night when she started experiencing nausea and vomiting. Patient also having abdominal pain mostly in the right lower quadrant, intermittent, nonradiating. Patient also noticed that the vomitus was dark in color, not sure if it was bloody. Patient denies any fever or chills. There was no complaint of any orthopnea or PND. Denies any chest pain. Because of the symptoms, patient presented to the ER Initial lab work done in the ER showed WBC 17.3, hemoglobin 10.6, platelet count 497, sodium 135, potassium 4.8, anion gap is 16 CO2 18, BUN 25, glucose 495 calcium 9.7, magnesium 1.9, bilirubin 0.6, AST 22, ALT 14, lipase 53 UA done showed large amount of leukocyte Estrace, large amount of WBC, EKG done in the ER showed heart rate of 122, no ST segment elevation or depression seen, no T-wave inversions seen. Patient admitted to internal medicine service 04/10 patient is status post EGD yesterday which was unremarkable for Acute pathology No vomiting but patient is having dry heaves about 5 episodes yesterday and 2 episodes this morning She is not able to eat last night and this morning but she is willing to try some chicken breast for toays lunch pt is having no bowel movement , last one was three days ago, she is passing gas She states that she is having right-sided abdominal pain 03/25 for several months since March of last year on and off He will try Bentyl and she agrees She states she had 2 episodes of pancreatitis earlier however lipase during this admission was normal as well as amylase. Continue with IV fluids and patient does not want to change her antiemetic for now. 04/11/24 pt is still complaining from nausea, she ate litle bit better this morning requesting glucerna which provided no abd pain states her zofran helping , does not want more reglan stopped yesterday pt is ok with that, no difference from today Today oh Dilaudid 0.5 mg, patientv was using it frequently pt is on home dose of norco 10 mg, we may lower dose if needed possible dc in 24 - 48 hours once symptoms improve Objective - Vital Signs Vital signs: Vital Signs Temp 98.6 F 04/11/24 07:46 Pulse 100 04/11/24 07:46 Resp 17 04/11/24 07:46 BP 153/92 04/11/24 07:46 Pulse Ox 96 04/11/24 07:46 FiO2 Intake & Output 04/10/24 04/11/24 04/11/24 18:59 06:59 18:59 Intake Total 118 118 Balance 118 118 Weight 58.967 kg Intake: Oral 118 118 Other: Voiding Method Toilet # Voids 1 1 - Exam GENERAL: The patient is alert and oriented x3, not in any acute distress. Well developed, well nourished. HEENT: Pupils are round and equally reacting to light. EOMI. No scleral icterus. No conjunctival pallor. Normocephalic, atraumatic. No pharyngeal erythema. No thyromegaly. CARDIOVASCULAR: S1 and S2 present. No murmurs, rubs, or gallops. PULMONARY: Chest is clear to auscultation, no wheezing , no crackles. -ABDOMEN: Soft, right-sided tenderness, no rebound tenderness or guarding, nondistended, normoactive bowel sounds. No palpable organomegaly. MUSCULOSKELETAL: No joint swelling or deformity. EXTREMITIES: No cyanosis, clubbing, or pedal edema. NEUROLOGICAL: Gross neurological examination did not reveal any focal deficits. SKIN: No rashes. no petechiae. - Labs CBC & Chem 7: 04/09/24 03:45 04/09/24 03:45 Labs: Abnormal Lab Results - Last 24 Hours (Table) 04/10/24 04/10/24 04/11/24 Range/Units 16:54 19:39 02:25 POC Glucose (mg/dL) 188 H 190 H (70-110) mg/dL Urine Appearance Cloudy H (Clear) Urine Protein 2+ H (Negative) Urine Glucose (UA) 4+ H (Negative) Urine Ketones 3+ H (Negative) Urine Blood Large H (Negative) Ur Leukocyte Esterase Large H (Negative) Urine RBC >182 H (0-5) /hpf Urine WBC >182 H (0-5) /hpf Hyaline Casts 3 H (0-2) /lpf Urine Mucus Rare H (None) /hpf Urine Yeast (Budding) Rare H (None) /hpf 04/11/24 Range/Units 05:47 POC Glucose (mg/dL) 179 H (70-110) mg/dL Urine Appearance (Clear) Urine Protein (Negative) Urine Glucose (UA) (Negative) Urine Ketones (Negative) Urine Blood (Negative) Ur Leukocyte Esterase (Negative) Urine RBC (0-5) /hpf Urine WBC (0-5) /hpf Hyaline Casts (0-2) /lpf Urine Mucus (None) /hpf Urine Yeast (Budding) (None) /hpf Assessment and Plan Assessment: Right-sided abdominal pain with nausea vomiting. EGD was unremarkable. Most likely irritable bowel syndrome Hyperglycemia UTI Abdominal pain Insulin-dependent diabetes mellitus Seizures Plan: Continue with IV fluids Continue with antiemetic, zofran Add Bentyl, she refused dc dilaudid Continue with insulin with close monitoring of glucose Follow-up biopsy results for her EGD Labs and medication were reviewed.. Continue same treatment. Continue with symptomatic treatment. Resume home medication. Monitor labs and vitals. DVT and GI prophylaxis. Further recommendations as per clinical course of the patient DVT prophylaxis: Subcutaneous heparin GI Prophylaxis: Pepcid and Protonix Prognosis is guarded
[2024-04-11] MEDS: KETOROLAC 15 MG/ML 1 ML VIAL IVP STA (20:56)
[2024-04-11 21:25] LABS: Glucose,Whole Blood 290 mg/dL (70-110)
[2024-04-11 21:38] LABS: Glucose,Whole Blood 272 mg/dL (70-110)
[2024-04-11] MEDS: HYDROmorphone 0.5 MG/0.5 ML SYRINGE IVP STA (21:40)
[2024-04-12] MEDS: HYDROmorphone 0.5 MG/0.5 ML SYRINGE IVP STA (00:17)
--- NOTE | 2024-04-12 02:20 | P.PN ---
Subjective Progress Note Date: 04/11/24 Patient seen and evaluated at bedside. no new complaints, no overnight events. Objective - Vital Signs Vital signs: Vital Signs Temp 98.7 F 04/11/24 20:00 Pulse 100 04/11/24 20:00 Resp 20 04/11/24 20:00 BP 138/85 04/11/24 20:00 Pulse Ox 96 04/11/24 20:00 FiO2 Intake & Output 04/11/24 04/11/24 04/12/24 06:59 18:59 06:59 Intake Total 118 Balance 118 Intake: Oral 118 Other: Voiding Method Toilet # Voids 1 5 - Exam gen: nad cv: rrr pul: non labored abd: soft, min tender to palpation, no guarding - Labs CBC & Chem 7: 04/09/24 03:45 04/09/24 03:45 Labs: Abnormal Lab Results - Last 24 Hours (Table) 04/11/24 04/11/24 04/11/24 Range/Units 02:25 05:47 12:05 POC Glucose (mg/dL) 179 H 236 H (70-110) mg/dL Urine Appearance Cloudy H (Clear) Urine Protein 2+ H (Negative) Urine Glucose (UA) 4+ H (Negative) Urine Ketones 3+ H (Negative) Urine Blood Large H (Negative) Ur Leukocyte Esterase Large H (Negative) Urine RBC >182 H (0-5) /hpf Urine WBC >182 H (0-5) /hpf Hyaline Casts 3 H (0-2) /lpf Urine Mucus Rare H (None) /hpf Urine Yeast (Budding) Rare H (None) /hpf 04/11/24 04/11/24 04/11/24 Range/Units 17:05 21:24 21:36 POC Glucose (mg/dL) 246 H 290 H 272 H (70-110) mg/dL Urine Appearance (Clear) Urine Protein (Negative) Urine Glucose (UA) (Negative) Urine Ketones (Negative) Urine Blood (Negative) Ur Leukocyte Esterase (Negative) Urine RBC (0-5) /hpf Urine WBC (0-5) /hpf Hyaline Casts (0-2) /lpf Urine Mucus (None) /hpf Urine Yeast (Budding) (None) /hpf Assessment and Plan Assessment: 1. Intractable nausea and vomiting 2. Gastritis 3. Diabetic gastroparesis PLAN: 1. She is clinically stable. 2. Discharge when medically stable. Time with Patient: Less than 30
[2024-04-12 02:57] VITALS: TEMP 98
[2024-04-12 05:17] LABS: Glucose,Whole Blood 232 mg/dL (70-110)
[2024-04-12 08:09] VITALS: BP 144/84; PULSE 92; RESP 15
[2024-04-12] MEDS: HYDROcodone/APAP 10-325MG 1 EACH TAB PO PRN (09:02)
[2024-04-12 12:15] LABS: Glucose,Whole Blood 283 mg/dL (70-110)
--- NOTE | 2024-04-16 07:11 | CDI ---
Documentation Clarification Form Date: 04/16/24 From: Krystyna Rowley Admit Date: 04/06/2024 09:56:00 AM Patient Name: Estela Gilbert Visit Number: [id number] Discharge Date: 04/12/2024 03:37:00 PM ATTENTION: The Clinical Documentation Specialists (CDI) and [facility] Coding Staff appreciate your assistance in clarifying documentation. Please respond to the clarification below the line at the bottom and electronically sign. The CDI & [facility] Coding staff will review the response and follow-up if needed. Please note: Queries are made part of the Legal Health Record. If you have any questions, please contact the author of this message via ITS. Doctor Fernando Morley, The patients principal diagnosis the diagnosis that was chiefly responsible for the admission - has not been clearly identified and clarification is requested. The patient presented with the following: nausea and vomiting and abdominal pain mostly in the right lower quadrant, intermittent, non-radiating. History/Risk factors: seizures and T2DM Clinical Indicators: Patient stated that she was all right last night when she started experiencingnausea and vomiting. Patient also having abdominal painmostly in the right lower quadrant, intermittent, nonradiating. Patient also noticed that the vomitus was dark in color, not sure if it was bloody. Lab findings: WBC 17.3, Neutrophils 15.8, Glucose 495/360, Na 135, Urine: Leukocyte esterase large, WBC >182, Protein 1+, Glucose 4+, Ketones 2+, blood large Radiology findings: ABDPELW: Urinary bladder wall thickening which may relate to under distention vs cystitis. Correlate with urinalysis. Non-obstructive bilateral renal calculi. Mild colonic stool burden. No evidence for obstruction. Vital Signs: T 98.0, P 124, R 18, BP 181/106, O2 sat 100 RA Treatment: EGD w biopsy 04/09, IV Reglan, Bentyl po, IV antibiotics, Insulin, Dilaudid IV Consults: GI: Nausea and vomiting with coffee-ground emesis, acute GI bleed In your professional opinion, can you please clarify which diagnosis, after study, was the reason chiefly responsible for the admission? [x ] Antral Gastritis, if so, was bleeding present Yes or No [ ] T2 Diabetic Gastroparesis [ ] Irritable Bowel Syndrome [ ] Urinary tract infection [ ] Other, please specify [ ] Unable to determine MTDD
== END 2024-04-12 15:37 | disposition home or self-care (01) | DRG 241 ==
LOC: EC 06:17 → 6NMEDSUR 09:55 → OBSVTOIN 09:56 → 6NMEDSUR 16:40
PROVIDERS: ADMIT Hospitalist; ATTEND Hospitalist
PROC: 0DB78ZX Excision of Stomach, Pylorus, Via Natural or Artificial Opening Endoscopic, Diagnostic (ICD-10-PCS; principal; 2024-04-09 10:45)
DX: K29.70 Gastritis, unspecified, without bleeding (principal); N39.0 Urinary tract infection, site not specified; K58.9 Irritable bowel syndrome, unspecified; E11.43 Type 2 diabetes mellitus with diabetic autonomic (poly)neuropathy; E11.65 Type 2 diabetes mellitus with hyperglycemia; E86.0 Dehydration; E87.20 Acidosis, unspecified; G40.909 Epilepsy, unspecified, not intractable, without status epilepticus; D62 Acute posthemorrhagic anemia; K31.84 Gastroparesis; J45.909 Unspecified asthma, uncomplicated; E28.2 Polycystic ovarian syndrome; G43.909 Migraine, unspecified, not intractable, without status migrainosus; Z87.01 Personal history of pneumonia (recurrent); Z88.5 Allergy status to narcotic agent; Z88.0 Allergy status to penicillin; Z88.2 Allergy status to sulfonamides; Z79.4 Long term (current) use of insulin; Z87.11 Personal history of peptic ulcer disease; Z87.442 Personal history of urinary calculi; Z86.73 Personal history of transient ischemic attack (TIA), and cerebral infarction without residual deficits; Z79.84 Long term (current) use of oral hypoglycemic drugs; Z79.899 Other long term (current) drug therapy; Z79.1 Long term (current) use of non-steroidal anti-inflammatories (NSAID); Z86.14 Personal history of Methicillin resistant Staphylococcus aureus infection
CPT/HCPCS: 36415; 43239; 74177; 80048; 80053; 80320; 81001; 82150; 83036; 83605; 83690; 83735; 84703; 85025; 88305; 93005; 96361; 96365; 96375; 96376; 99285

== ENCOUNTER → 2024-08-28 | Outpatient (CLI) | payer OTHER ==
--- NOTE | 2024-08-28 11:51 | CT ---
EXAMINATION TYPE: CT abdomen pelvis wo con DATE OF EXAM: 08/28/2024 COMPARISON: 01/27/2024 CLINICAL INDICATION: Female, 44 years old with history of N20.1 CALCULUS OF URETER; PHH, Bilateral fl ank pain, hematuria TECHNIQUE: CT scan of the abdomen and pelvis is performed without oral or IV contrast. CT DLP: 358.[address] CTDI: mGy Automated exposure control for dose reduction was used. FINDINGS: Within the limitations of a non-contrast study, the following observations are made. There is an ill- defined 16.5 mm groundglass opacity in the right lower lobe of indeterminate etiology. Could be infec tious in nature and short-term follow-up is recommended if clinically indicated. There is surgical absence of the gallbladder. There is no biliary ductal dilatation. There is no organomegaly of the liver, pancreas, spleen or adrenal glands. There are single 1 to 2 mm nonobstructing renal calcifications bilaterally. The caliber of the abdominal aorta is normal and there is no retroperitoneal adenopathy or hemorrhage . The bowel loops are normal in caliber is no evidence of obstruction. No inflammatory changes are iden tified in the mesentery and there is no free intraperitoneal air or fluid. There is a large amount of stool throughout the colon. There is no pelvic mass, free fluid, abscess or adenopathy. The osseous structures and soft tissues are unremarkable. IMPRESSION: . 1. Single bilateral nonobstructing 1 to 2 mm renal calcifications. 2. 16 mm groundglass opacity in the right lower lobe. Follow-up CT thorax is recommended if clinicall y indicated. 3. Large amount of stool within the colon. No bowel obstruction, free intraperitoneal air or fluid. [facility], , 08/28/2024 11:48 AM
== END | disposition home or self-care (01) ==
LOC: RADCTMAIN 10:56
PROVIDERS: ATTEND Urology
DX: N20.1 Calculus of ureter (principal); R19.5 Other fecal abnormalities; Z87.442 Personal history of urinary calculi
CPT/HCPCS: 74176

== ENCOUNTER → 2024-09-04 | Outpatient (CLI) | payer OTHER ==
--- NOTE | 2024-09-04 11:57 | FL ---
EXAMINATION TYPE: FL barium swallow DATE OF EXAM: 09/04/2024 10:21 AM COMPARISON: Chest radiograph from 07/20/2024 CLINICAL INDICATION:Female, 44 years old with history of R13.10 DYSPHAGIA; PHH, TECHNIQUE: The procedure was explained and patient history elicited. All patient questions were ans wered prior to start of procedure. Multiple spot fluoroscopic images of the esophagus were obtained a fter the oral ingestion of effervescent crystals and liquid barium as the contrast agent. Fluoroscopic time:0.29 min Fluoroscopic images:0 Radiographs taken: 82 DAP: NOT REPORTED [id number] FINDINGS: The esophagus demonstrates normal primary and secondary peristalsis. Tertiary contractions are seen w ith delayed emptying of the esophageal contents. The esophageal mucosa is smooth without evidence of focal stricture, ulceration, or abnormal outpouching. No gastroesophageal reflux disease was identif ied IMPRESSION: Esophageal dysmotility. [facility], , 09/04/2024 11:55 AM
--- NOTE | 2024-09-04 14:30 | BD ---
EXAMINATION TYPE: Axial Bone Density DATE OF EXAM: 09/04/2024 CLINICAL HISTORY: 44 years old Female. ICD-10 CODE: M85.80 OTH DISRD OF BONE DENSITY , Additional H istory: Height: 62 Weight: 132.8 FRAX RISK QUESTIONS: Alcohol (3 or more units per day): no Family History (Parent hip fracture): no Glucocorticoids (More than 3mos): no (Ex: prednisone, prednisolone, methylprednisolone, dexamethasone, and hydrocortisone). History of Fracture in Adulthood: yes Secondary Osteoporosis: 1. Type 1 Diabetes: no 2. Hyperthyroidism: no 3. Menopause before 45: no 4. Malnutrition: no 5. Chronic liver disease: no Rheumatoid Arthritis: no Current Tobacco Use: no RISK FACTORS HISTORY OF: Surgery to Spine/Hip(right/left)/Wrist (right/left): no EXAM MEASUREMENTS: Bone mineral densitometry was performed using the [employer] System. Bone mineral density as measured about the Lumbar spine is: ----- L1-L4(G/cm2): 1.172 T Score Values are as follows: ----- L1: -0.9 ----- L2: -0.4 ----- L3: 0.4 ----- L4: 0.3 ----- L1-L4: -0.1 Z Score Values are as follows: ----- L1: -0.7 ----- L2: -0.2 ----- L3: 0.6 ----- L4: 0.5 ----- L1-L4: 0.2 Bone mineral density : baseline Bone mineral density about the R hip (g/cm2): 0.858 Bone mineral density about the L hip (g/cm2): 0.886 T Score values are as follows: -----R Neck: -0.5 -----L Neck: -0.6 -----R Total: -1.2 -----L Total: -1.0 Z Score values are as follows: -----R Neck: 0.2 -----L Neck: 0.1 -----R Total: -0.7 -----L Total: -0.5 Bone mineral density : baseline FRAX%s: The graph provided illustrates a 5.3% chance for a major osteoporotic fx and a 0.2% chance fo r the hips probability for fx in 10 years time. IMPRESSION: Osteopenia (T Score between -2.5 and -1). There is slightly increased risk of fracture and the patient may be considered for treatment. Re-Screen 2-5 years. NOTE: T-SCORE=SD OF THE YOUNG ADULT MEAN. [facility], , 09/04/2024 2:27 PM
== END | disposition home or self-care (01) ==
LOC: RADBDWWP 08:36
PROVIDERS: ATTEND Family Medicine
DX: K22.4 Dyskinesia of esophagus (principal); R13.10 Dysphagia, unspecified; M85.80 Other specified disorders of bone density and structure, unspecified site
CPT/HCPCS: 74220; 77080

== ENCOUNTER → 2024-09-23 | Outpatient (CLI) | payer OTHER ==
[2024-09-23 12:25] LABS: African American GFR (CKD) >90 (>60 ml/min/1.73 sqM); Blood Urea Nitrogen 29 mg/dL (7-17); Non-African American GFR(CKD) 80 (>60 ml/min/1.73 sqM)
--- NOTE | 2024-09-23 12:57 | CT ---
EXAMINATION TYPE: CT chest w con DATE OF EXAM: 09/23/2024 COMPARISON: CT abdomen and pelvis August 28, 2024 HISTORY: NON SPECIFIC ABNORMAL FINDINGS ON LUNG LLANOS CT DLP: 311 mGycm. Automated Exposure Control for Dose Reduction was Utilized. TECHNIQUE: CT scan of the thorax is performed following with IV Contrast, patient injected with 100 mL of Isovue 300. FINDINGS: LUNGS: Mild to moderate bibasilar linear scarring and/or atelectasis is present. No suspicious focal consolidation. No concerning pulmonary masses. Somewhat low lung volumes are present.. MEDIASTINUM: There are no greater than 1 cm hilar or mediastinal lymph nodes. Tiny pericardial effusi on is seen. No cardiomegaly. Moderate coronary artery calcification. OTHER: There are suspected subcapsular hematoma lateral aspect of the left kidney partially imaged me asuring 4.2 x 2.7 cm on last axial image. Correlate clinically. IMPRESSION: 1. Low lung volumes with Mild to moderate bilateral lower lung linear scarring and/or atelectasis. No concerning pulmonary mass or thoracic adenopathy. 2. There is new focal fluid collection lateral aspect upper pole left kidney suspicious for subcapsul ar hematoma. Local mass effect is present. Clinical correlation advised. Consider imaging follow-up b ased on clinical correlation to better evaluate and characterize. [facility], , 09/23/2024 12:55 PM
== END | disposition home or self-care (01) ==
LOC: RADCTMAIN 09-15 11:34
PROVIDERS: ATTEND Family Medicine
DX: J98.4 Other disorders of lung (principal); R91.8 Other nonspecific abnormal finding of lung field
CPT/HCPCS: 82565; 84520; 71260; 36415; Q9967

== ENCOUNTER 2024-09-26 17:15 | Emergency (ER) | payer OTHER ==
[2024-09-26 17:27] LABS: Glucose,Whole Blood 391 mg/dL (70-110)
[2024-09-26 17:28] VITALS: RESP 20; TEMP 98.8
--- NOTE | 2024-09-26 18:17 | ED ---
General Adult HPI - General Chief complaint: Urogenital Stated complaint: Abd pain Time Seen by Provider: 09/26/24 17:37 Source: patient, EMS Mode of arrival: EMS Limitations: no limitations - History of Present Illness Initial comments: Patient is a 44-year-old female the past medical history ofPrior CVA/TIA, diabetes, seizure disorder, asthma today for right flank pain. Patient states that symptoms began with hematuria about 2 days ago on . She began having right-sided flank pain and right lower quadrant abdominal pain over the last 2 days associate with nausea and nonbloody nonbilious emesis. Last episode of emesis was the patient states he has not eaten anything due to the nausea and vomiting. She is not taking any pain medications at home. She states she does have a history of kidney stones. States that her urine has started to clear up however she still has dark urine. Denies dysuria, frequency, fever, diarrhea, hematochezia, melena, constipation. Last bowel movement was this evening/afternoon was normal in caliber for her. Abdominal surgeries include prior cholecystectomy. Of note patient states that she is allergic to codeine and morphine stating that she gets hallucinations from these however she is able to take Dilaudid. States that she cannot have Toradol because she was told that she is not supposed to take this due to her history of seizures. Denies chest pain, endorses baseline shortness of breath due to her asthma. She denies any cough, weakness or slurred speech. Endorses intermittent lightheadedness that occurs with rolling over in bed. Is not on blood thinners. - Related Data Home Medications Medication Instructions Recorded Confirmed Albuterol Inhaler [Ventolin Hfa 2 puff INHALATION RT-QID PRN 04/15/17 04/06/24 Inhaler] HYDROcodone/APAP 10-325MG [[place] 1 tab PO TID PRN 01/14/18 04/06/24 10-325] Loratadine [Claritin] 10 mg PO DAILY 03/26/23 04/06/24 Propranolol [Inderal] 20 mg PO DAILY 03/27/23 04/06/24 Glucagon Emergency Kit 1 mg IM ONCE PRN 07/10/23 04/06/24 Insulin Detemir [Levemir Flexpen] 12 - 14 units SQ [id number] 07/10/23 04/06/24 Famotidine [Pepcid] 20 mg PO DAILY 07/25/23 04/06/24 levETIRAcetam [Keppra] 500 mg PO BID 08/29/23 04/06/24 Cyclobenzaprine [Flexeril] 10 mg PO BID PRN 11/11/23 04/06/24 Lidocaine-Prilocaine Cream [Emla 1 applic TOPICAL BID PRN 11/11/23 04/06/24 Cream 2.5%/2.5%] Pantoprazole [Protonix] 40 mg PO DAILY 11/11/23 04/06/24 Insulin Lispro 10 units SQ TID-W/MEALS 04/06/24 04/06/24 Insulin Lispro See Protocol SQ TID-W/MEALS 04/06/24 04/06/24 Meclizine [Antivert] 12.5 mg PO TID PRN 04/06/24 04/06/24 Midazolam [Nayzilam] 1 spray NASAL BID PRN 04/06/24 04/06/24 Naproxen [EC-Naprosyn] 500 mg PO BID PRN 04/06/24 04/06/24 Ondansetron Odt [Zofran ODT] 4 mg PO Q6H PRN 04/06/24 04/06/24 Rosuvastatin Calcium [Crestor] 40 mg PO HS 04/06/24 04/06/24 Allergies Allergy/AdvReac Type Severity Reaction Status Date / Time Penicillins Allergy Nausea & Verified 09/26/24 17:22 Vomiting, rash codeine AdvReac Nausea & Verified 09/26/24 17:22 Vomiting morphine AdvReac Nausea & Verified 09/26/24 17:22 Vomiting Sulfa (Sulfonamide AdvReac Nausea & Verified 09/26/24 17:22 Antibiotics) Vomiting, rash tramadol AdvReac Per Verified 09/26/24 17:22 patient, cannot take with Keppra Review of Systems ROS Statement: Those systems with pertinent positive or pertinent negative responses have been documented in the HPI. ROS Other: All systems not noted in ROS Statement are negative. Past Medical History Past Medical History: Asthma, CVA/TIA, Diabetes Mellitus, GI Bleed, Pneumonia, Seizure Disorder Additional Past Medical History / Comment(s): NIDDM type II, grand mal seizure and stroke once in 2017, lower GI bleed, mild diverticular dx, PCOS, bronchitis, pneumonia, migraines, allergic rhinitis. Kidney stones History of Any Multi-Drug Resistant Organisms: MRSA, None Reported Date of last positivie culture/infection: 2011 MDRO Source:: Lungs Past Surgical History: Section, Cholecystectomy, Tubal Ligation Additional Past Surgical History / Comment(s): colonoscopies, R groin mole removed then resected d/t abnormal cells-bening, kidney stones surgically removed Past Anesthesia/Blood Transfusion Reactions: No Reported Reaction Past Psychological History: No Psychological Hx Reported Smoking Status: Never smoker Past Alcohol Use History: Rare Past Drug Use History: None Reported - Past Family History Father Family Medical History: Cancer Additional Family Medical History / Comment(s): COLON, MELANOMA ON HIS CHEST AND HE ALSO HAS BENIGN BRAIN TUMORS 2, diabetes, pancreatic cancer. FATHER IS alive. Mother Family Medical History: Cancer, Dialysis Additional Family Medical History / Comment(s): MELANOMA THAT METASTASIZED TO THE BRAIN- FROM AT AGE 49 YRS. Mother had an NC at age 34 with angioplasty at age 36 yrs and another NC, and history of diabetes. Patient has many aunts, uncles and nieces with diabetes on her mother's side. Brother(s) Additional Family Medical History / Comment(s): Patient has one half-brother with kidney stones, full brother with no major medical problems. Patient has 1 sister with no major medical problems. Daughter(s) Additional Family Medical History / Comment(s): Patient has 2 daughters and her youngest daughter has history of seizure disorder. Patient has one son with no major medical problems. General Exam - General Exam Comments Initial Comments: PE: CONSTITUTIONAL: No apparent distress, chronically ill-appearing SKIN: Warm, dry, no jaundice, hives or petechiae, generalized pallor EYES: Pupils are equally round, extraocular movements intact without nystagmus, pale conjunctiva non-icteric sclera HENT: Normocephalic, atraumatic, I mucus membranes, oropharynx clear without exudates NECK: , Full range of motion, normal appearance PULMONARY: Scant wheezes bilaterally, otherwise no, rhonchi, or rales, normal excursion, no accessory muscle use and no stridor CARDIOVASCULAR: Tachycardia, regular rate, rhythm, normal S1 and S2. No apprec iated murmurs, rubs or gallops. Strong radial pulses with intact distal perfusion. No lower extremity edema GASTROINTESTINAL: Soft, active bowel sounds throughout, positive right lower quadrant tenderness, positive right CVA tenderness, guarding palpation of the right lower quadrant, non-distended, no palpable masses, guarding with palpation of the right lower quadrant no hepatosplenomegaly MUSCULOSKELETAL: Extremities have no gross deformity, no edema, redness, or swelling. No calf swelling NEUROLOGIC:_a/o x 3, GCS 15, normal mentation and speech. Moves all extremities x 4 without motor or sensory deficit PSYCHIATRIC:_normal mood and affect, thought process is clear and linear Limitations: no limitations Course Vital Signs 09/26/24 09/26/24 09/26/24 17:23 20:05 21:15 Temperature 98.8 F Pulse Rate 114 H 113 H 121 H Respiratory 20 20 20 Rate Blood Pressure 116/73 120/84 120/83 O2 Sat by Pulse 93 L 95 94 L Oximetry 09/26/24 21:48 Temperature 98.8 F Pulse Rate 112 H Respiratory 20 Rate Blood Pressure 125/85 O2 Sat by Pulse 94 L Oximetry EKG Findings - EKG Comments: EKG Findings:: Sinus tachycardia, rate 111 bpm, CO interval 128 ms, QT/QTc 328/394 ms, no ST elevations or depressions, no peaked T wavesCompared to EKG performed on 04/06/2024, no significant changes from prior Medical Decision Making - Medical Decision Making Was pt. sent in by a medical professional or institution (, PA, IS CONSULTANT, urgent care, hospital, or senior care...) When possible be specific @ -[No] Did you speak to anyone other than the patient for history (EMS, parent, family, police, friend...)? What history was obtained from this source @ -[No] Did you review nursing and triage notes (agree or disagree)? Why? @ -[I reviewed nursing and triage notes] Were old charts reviewed (outside hosp., previous admission, EMS record, old EKG, old radiological studies, urgent care reports/EKG's, senior care records)? Report findings @ -[Medical records reviewed]-Patient's last CT of her abdomen was performed on 08/28/2024 for bilateral flank plain and hematuria, patient was noted to have bilateral nonobstructing 1 to 2 mm renal stones, large amount of stool in the colon, groundglass opacity in the right lower lobe; Pt also had a CT chest performed on 09/23/23 that appeared subcapsular hematoma at that time Differential Diagnosis (chest pain, altered mental status, abdominal pain women, abdominal pain men, vaginal bleeding, weakness, fever, dyspnea, syncope, h eadache, dizziness, GI bleed, back pain, seizure, CVA, palpatations, mental health, musculoskeletal)? Differential Abdominal Pain Women: Appendicitis, Cholecystitis, diverticulosis, ischemic bowel, pancreatitis, hepatitis, UTI, gastroenteritis, AAA, incarcerated hernia, bowel obstruction, constipation, inflammatory bowel, ureteroithiasis, perinephric abscess, peptic ulcer disease, splenic infarction, perforated viscus, this is not meant to be an all-inclusive list EKG interpreted by me (3pts min.). @ -[As above] X-rays interpreted by me (1pt min.). @ -[None done] CT interpreted by me (1pt min.). @As noted below, on my review of CT scan, there is a fluid collection contained along left kidney, as well as air bubbles focused around the bladder, no obvious free air or free fluid in the abdomen U/S interpreted by me (1pt. min.). @ -[None done] What testing was considered but not performed or refused? (CT, X-rays, U/S, labs)? Why? @ -[None] What meds were considered but not given or refused? Why? @ -[None] Did you discuss the management of the patient with other professionals (brooke frias i.eKathleen Killian, PA, IS CONSULTANT, lab, RT, psych nurse, social services director, paper inserter, teacher, intelligence officer basic, spring encaser)? Give summary Case discussed [facility] Dr. Mercer,urology, kindly recs transfer to facility with IR Was smoking cessation discussed for >3mins.? @ -[No] Was critical care preformed (if so, how long)? @Yes, 45 minutes Were there social determinants of health that impacted care today? How? (Homeles sness, low income, unemployed, alcoholism, drug addiction, transportation, low edu. Level, literacy, decrease access to med. care, [facility], rehab)? @ -[No] Was there de-escalation of care discussed even if they declined (Discuss DNR or withdrawal of care, Hospice)? @ -[No] What co-morbidities impacted this encounter? (DM, HTN, Smoking, COPD, CAD, Cancer, CVA, ARF, Chemo, Hep., AIDS, mental health diagnosis, sleep apnea, morbid obesity)? @Seizures, asthma, diabetes Was patient admitted / discharged? Hospital course, mention meds given and route, prescriptions, significant lab abnormalities, going to OR and other pertinent info. @ -Transfer to [facility] for IR- PT is a pleasant 44-year-old female history diabetes, asthma presenting today for right sided flank pain and hematuria as well as right lower quadrant abdominal pain x 2 days. Pt mildly tachycardic on arrival, HR 114, BP stable 116/73, RR20, pulse ox 93% on RA. Patient seen and assessed, chronically ill-appearing though in no acute distress. Pulse ox on RA on my assessment up to 96%. Respirations unlabored. Complete history history and physical exam performed. Significant for right CVA tenderness, right lower quadrant tenderness to palpation, abdomen soft, no peritoneal signs, active bowel sounds throughout. Generalized pallor. Urine at bedside is dark in color however nonbloody. Given right lower quadrant t enderness in addition to right CVA tenderness, differential diagnoses above however top considerations include ureterolithiasis versus appendicitis. CT abdomen/ pelvis with contrast ordered, pain control via Dilaudid and Tylenol as well as comprehensive labs and urinalysis ordered. Hemoglobin 6.8, previously on 04/09/2024 was 10, of note platelets are also elevated at 787, WBC overall not elevated however she does have a left shift with neutrophils of 8.7. Of note patient denies any black or bloody stools. She is not on blood thinners. CT Abdo.pelvis significant for "emphysematous cystitis" as well as a "subcapsular hematoma or urinoma along the lateral left kidney which is an interval change since CT performed August 2024", also notes abscess could be considered in the appropriate clinical setting, of note there is a tiny amount of air in the mid right upper kidney. I reevaluated the patient she states she did have a fall onto her left side about 2 days ago however that fall occurred after the CT chest she had performed on 09/23/2023 at which point this suspected hematoma was also present. Case was discussed with Dr. Mercer, urology, states patient needs interventional radiology that we do not have here so patient will need to be transferred. I discussed this with patient and the need for expedited transfer, she declines transfer to [facility] due to prior poor ex perience and requests transfer to [facility] since she has had care there in the past. I discussed with her that this may require a prolonged emergency department stay and should they not have beds available for immediate transfer I would like to attempt transfer her elsewhere so that she does not have to stay in our ED without definitive treatment for days. If a bed is not available at [facility], will consider transfer to [facility]., Blood cultures, lactic and cefepime have been ordered. Additionally did discuss with the patient her need for blood transfusion, I obtained consent patient agreeable plan for transfusion. 1 unit PRBC ordered. In addition, there are multiple lab abnormalities including pseudohyponatremia sodium 128, (corrected 133) blood glucose of 391,out of concern for DKA, will obtain blood acetone level, potassium 5.6, chloride 89, bicarb 20, anion gap of 19, AST/ALT 313/234, total bilirubin 0.4, alk phos 322. Insulin ordered for hyperglycemia and hyperkalemia, EKG ordered to assess for EKG changes as well as calcium gluconate. Due to elevated LFTs acetaminophen level was also added howevever pt declines taking tylenol sea captain. Urinalysis significant for large blood, large LE, neg nitrites. Pt kindly accepted for transfer to [facility] by Dr. Win, emergency medicine. Updated pt to findings and plan, she is agreeable with plan for transfer. Of note, on reassessment pulse ox appears to show 65% on room air with a poor quality waveform. When pulse oximeter is adjusted to more tightly fit patient's finger, pulse ox rises to 90s without additional intervention. I suspect this is 2/2 pt's anemia. Blood acetone is positive, VBG pending. Patient has already received 10 units IV insulin for hyperkalemia so we will start today 0.1 unit/ kg insulin drip and maintenance fluids. Pt transferred to [facility] for further care. Undiagnosed new problem with uncertain prognosis? @ -[No] Drug Therapy requiring intensive monitoring for toxicity (Heparin, Nitro, Insulin, Cardizem)? @ -[No] Were any procedures done? @ -[No] Diagnosis/symptom? Subcapsular hematoma, emphysematous cystitis, sepsis, DKA Acute, or Chronic, or Acute on Chronic? @Acute Uncomplicated (without systemic symptoms) or Complicated (systemic symptoms)? Complicated Side effects of treatment? @ -[No] Exacerbation, Progression, or Severe Exacerbation? @ -[No] Poses a threat to life or bodily function? How? (Chest pain, USA, NC, pneumonia, PE, COPD, DKA, ARF, appy, cholecystitis, CVA, Diverticulitis, Homicidal, Suicidal, threat to staff... and all critical care pts) Yes - Lab Data Result diagrams: 09/26/24 18:11 09/26/24 18:11 Lab Results 09/26/24 09/26/24 09/26/24 Range/Units 17:26 18:11 18:11 WBC 10.2 (3.8-10.6) k/uL RBC 3.22 L (3.80-5.40) m/uL Hgb 6.8 L* (11.4-16.0) gm/dL Hct 23.7 L (34.0-46.0) % MCV 73.7 L (80.0-100.0) fL MCH 21.1 L (25.0-35.0) pg MCHC 28.6 L (31.0-37.0) g/dL RDW 15.8 H (11.5-15.5) % Plt Count 787 H (150-450) k/uL MPV 7.0 Neutrophils % 86 % Lymphocytes % 6 % Monocytes % 6 % Eosinophils % 1 % Basophils % 0 % Neutrophils # 8.7 H (1.3-7.7) k/uL Lymphocytes # 0.6 L (1.0-4.8) k/uL Monocytes # 0.6 (0-1.0) k/uL Eosinophils # 0.1 (0-0.7) k/uL Basophils # 0.0 (0-0.2) k/uL Manual Slide Review Performed Large Platelets Present Hypochromasia Marked Hypochromasia (manual) Present Poikilocytosis Slight Anisocytosis (manual) Present Microcytosis Slight Target Cells Present PT (10.0-12.5) sec INR (<1.2) APTT (22.0-30.0) sec Sodium 128 L (137-145) mmol/L Potassium 5.6 H (3.5-5.1) mmol/L Chloride 89 L (98-107) mmol/L Carbon Dioxide 20 L (22-30) mmol/L Anion Gap 19 mmol/L BUN 33 H (7-17) mg/dL Creatinine 0.86 (0.52-1.04) mg/dL Est GFR (CKD-EPI)AfAm >90 (>60 ml/min/1.73 sqM) Est GFR (CKD-EPI)NonAf 82 (>60 ml/min/1.73 sqM) Glucose 359 H (74-99) mg/dL POC Glucose (mg/dL) 391 H (70-110) mg/dL POC Glu Pump Station Operator ID Flor Henley Plasma Lactic Acid Carlos (0.7-2.0) mmol/L Calcium 9.7 (8.4-10.2) mg/dL Phosphorus (2.5-4.5) mg/dL Magnesium (1.6-2.3) mg/dL Total Bilirubin 0.4 (0.2-1.3) mg/dL AST 313 H (14-36) U/L ALT 234 H (4-34) U/L Alkaline Phosphatase 322 H (38-126) U/L Total Protein 7.0 (6.3-8.2) g/dL Albumin 3.4 L (3.5-5.0) g/dL Amylase 31 (30-110) U/L Lipase 97 (23-300) U/L Urine Color Urine Appearance (Clear) Urine pH (5.0-8.0) Ur Specific Paxton (1.001-1.035) Urine Protein (Negative) Urine Glucose (UA) (Negative) Urine Ketones (Negative) Urine Blood (Negative) Urine Nitrite (Negative) Urine Bilirubin (Negative) Urine Urobilinogen (<2.0) mg/dL Ur Leukocyte Esterase (Negative) Urine RBC (0-5) /hpf Urine WBC (0-5) /hpf Urine WBC Clumps (None) /hpf Ur Squamous Epith Cells (0-4) /hpf Urine Bacteria (None) /hpf Hyaline Casts (0-2) /lpf Urine HCG, Qual (Not Detectd) Acetone, Qual (Negative) Blood Type Blood Type Recheck Bld Type Recheck Status Antibody Screen Crossmatch Spec Expiration Date 09/26/24 09/26/24 09/26/24 Range/Units 18:11 18:12 18:12 WBC (3.8-10.6) k/uL RBC (3.80-5.40) m/uL Hgb (11.4-16.0) gm/dL Hct (34.0-46.0) % MCV (80.0-100.0) fL MCH (25.0-35.0) pg MCHC (31.0-37.0) g/dL RDW (11.5-15.5) % Plt Count (150-450) k/uL MPV Neutrophils % % Lymphocytes % % Monocytes % % Eosinophils % % Basophils % % Neutrophils # (1.3-7.7) k/uL Lymphocytes # (1.0-4.8) k/uL Monocytes # (0-1.0) k/uL Eosinophils # (0-0.7) k/uL Basophils # (0-0.2) k/uL Manual Slide Review Large Platelets Hypochromasia Hypochromasia (manual) Poikilocytosis Anisocytosis (manual) Microcytosis Target Cells PT 12.8 H (10.0-12.5) sec INR 1.2 H (<1.2) APTT 22.2 (22.0-30.0) sec Sodium (137-145) mmol/L Potassium (3.5-5.1) mmol/L Chloride (98-107) mmol/L Carbon Dioxide (22-30) mmol/L Anion Gap mmol/L BUN (7-17) mg/dL Creatinine (0.52-1.04) mg/dL Est GFR (CKD-EPI)AfAm (>60 ml/min/1.73 sqM) Est GFR (CKD-EPI)NonAf (>60 ml/min/1.73 sqM) Glucose (74-99) mg/dL POC Glucose (mg/dL) (70-110) mg/dL POC Glu Pump Station Operator ID Plasma Lactic Acid Carlos (0.7-2.0) mmol/L Calcium (8.4-10.2) mg/dL Phosphorus 3.7 (2.5-4.5) mg/dL Magnesium 2.0 (1.6-2.3) mg/dL Total Bilirubin (0.2-1.3) mg/dL AST (14-36) U/L ALT (4-34) U/L Alkaline Phosphatase (38-126) U/L Total Protein (6.3-8.2) g/dL Albumin (3.5-5.0) g/dL Amylase (30-110) U/L Lipase (23-300) U/L Urine Color Yellow Urine Appearance Turbid H (Clear) Urine pH 5.5 (5.0-8.0) Ur Specific Paxton 1.016 (1.001-1.035) Urine Protein 2+ H (Negative) Urine Glucose (UA) 4+ H (Negative) Urine Ketones 2+ H (Negative) Urine Blood Large H (Negative) Urine Nitrite Negative (Negative) Urine Bilirubin Negative (Negative) Urine Urobilinogen <2.0 (<2.0) mg/dL Ur Leukocyte Esterase Large H (Negative) Urine RBC >182 H (0-5) /hpf Urine WBC >182 H (0-5) /hpf Urine WBC Clumps Many H (None) /hpf Ur Squamous Epith Cells 19 H (0-4) /hpf Urine Bacteria Many H (None) /hpf Hyaline Casts 30 H (0-2) /lpf Urine HCG, Qual (Not Detectd) Acetone, Qual (Negative) Blood Type Blood Type Recheck Bld Type Recheck Status Antibody Screen Crossmatch Spec Expiration Date 09/26/24 09/26/24 09/26/24 Range/Units 18:12 19:21 20:02 WBC (3.8-10.6) k/uL RBC (3.80-5.40) m/uL Hgb (11.4-16.0) gm/dL Hct (34.0-46.0) % MCV (80.0-100.0) fL MCH (25.0-35.0) pg MCHC (31.0-37.0) g/dL RDW (11.5-15.5) % Plt Count (150-450) k/uL MPV Neutrophils % % Lymphocytes % % Monocytes % % Eosinophils % % Basophils % % Neutrophils # (1.3-7.7) k/uL Lymphocytes # (1.0-4.8) k/uL Monocytes # (0-1.0) k/uL Eosinophils # (0-0.7) k/uL Basophils # (0-0.2) k/uL Manual Slide Review Large Platelets Hypochromasia Hypochromasia (manual) Poikilocytosis Anisocytosis (manual) Microcytosis Target Cells PT (10.0-12.5) sec INR (<1.2) APTT (22.0-30.0) sec Sodium (137-145) mmol/L Potassium (3.5-5.1) mmol/L Chloride (98-107) mmol/L Carbon Dioxide (22-30) mmol/L Anion Gap mmol/L BUN (7-17) mg/dL Creatinine (0.52-1.04) mg/dL Est GFR (CKD-EPI)AfAm (>60 ml/min/1.73 sqM) Est GFR (CKD-EPI)NonAf (>60 ml/min/1.73 sqM) Glucose (74-99) mg/dL POC Glucose (mg/dL) (70-110) mg/dL POC Glu Pump Station Operator ID Plasma Lactic Acid Carlos (0.7-2.0) mmol/L Calcium (8.4-10.2) mg/dL Phosphorus (2.5-4.5) mg/dL Magnesium (1.6-2.3) mg/dL Total Bilirubin (0.2-1.3) mg/dL AST (14-36) U/L ALT (4-34) U/L Alkaline Phosphatase (38-126) U/L Total Protein (6.3-8.2) g/dL Albumin (3.5-5.0) g/dL Amylase (30-110) U/L Lipase (23-300) U/L Urine Color Urine Appearance (Clear) Urine pH (5.0-8.0) Ur Specific Paxton (1.001-1.035) Urine Protein (Negative) Urine Glucose (UA) (Negative) Urine Ketones (Negative) Urine Blood (Negative) Urine Nitrite (Negative) Urine Bilirubin (Negative) Urine Urobilinogen (<2.0) mg/dL Ur Leukocyte Esterase (Negative) Urine RBC (0-5) /hpf Urine WBC (0-5) /hpf Urine WBC Clumps (None) /hpf Ur Squamous Epith Cells (0-4) /hpf Urine Bacteria (None) /hpf Hyaline Casts (0-2) /lpf Urine HCG, Qual Not Detected (Not Detectd) Acetone, Qual Positive (Negative) Blood Type A Positive Blood Type Recheck A Pos Bld Type Recheck Status No Antibody Screen NEGATIVE Crossmatch See Detail Spec Expiration Date 09/29/2024 - 230109/26/24 09/26/24 Range/Units 20:07 20:30 WBC (3.8-10.6) k/uL RBC (3.80-5.40) m/uL Hgb (11.4-16.0) gm/dL Hct (34.0-46.0) % MCV (80.0-100.0) fL MCH (25.0-35.0) pg MCHC (31.0-37.0) g/dL RDW (11.5-15.5) % Plt Count (150-450) k/uL MPV Neutrophils % % Lymphocytes % % Monocytes % % Eosinophils % % Basophils % % Neutrophils # (1.3-7.7) k/uL Lymphocytes # (1.0-4.8) k/uL Monocytes # (0-1.0) k/uL Eosinophils # (0-0.7) k/uL Basophils # (0-0.2) k/uL Manual Slide Review Large Platelets Hypochromasia Hypochromasia (manual) Poikilocytosis Anisocytosis (manual) Microcytosis Target Cells PT (10.0-12.5) sec INR (<1.2) APTT (22.0-30.0) sec Sodium (137-145) mmol/L Potassium (3.5-5.1) mmol/L Chloride (98-107) mmol/L Carbon Dioxide (22-30) mmol/L Anion Gap mmol/L BUN (7-17) mg/dL Creatinine (0.52-1.04) mg/dL Est GFR (CKD-EPI)AfAm (>60 ml/min/1.73 sqM) Est GFR (CKD-EPI)NonAf (>60 ml/min/1.73 sqM) Glucose (74-99) mg/dL POC Glucose (mg/dL) 448 H (70-110) mg/dL POC Glu Pump Station Operator ID Venus De Santiago Plasma Lactic Acid Carlos 1.8 (0.7-2.0) mmol/L Calcium (8.4-10.2) mg/dL Phosphorus (2.5-4.5) mg/dL Magnesium (1.6-2.3) mg/dL Total Bilirubin (0.2-1.3) mg/dL AST (14-36) U/L ALT (4-34) U/L Alkaline Phosphatase (38-126) U/L Total Protein (6.3-8.2) g/dL Albumin (3.5-5.0) g/dL Amylase (30-110) U/L Lipase (23-300) U/L Urine Color Urine Appearance (Clear) Urine pH (5.0-8.0) Ur Specific Paxton (1.001-1.035) Urine Protein (Negative) Urine Glucose (UA) (Negative) Urine Ketones (Negative) Urine Blood (Negative) Urine Nitrite (Negative) Urine Bilirubin (Negative) Urine Urobilinogen (<2.0) mg/dL Ur Leukocyte Esterase (Negative) Urine RBC (0-5) /hpf Urine WBC (0-5) /hpf Urine WBC Clumps (None) /hpf Ur Squamous Epith Cells (0-4) /hpf Urine Bacteria (None) /hpf Hyaline Casts (0-2) /lpf Urine HCG, Qual (Not Detectd) Acetone, Qual (Negative) Blood Type Blood Type Recheck Bld Type Recheck Status Antibody Screen Crossmatch Spec Expiration Date Disposition Clinical Impression: Closed hematoma of left kidney, Emphysematous cystitis, DKA (diabetic ketoacidosis), Elevated LFTs Disposition: OTHER INSTITUTION NOT DEFINED Condition: Stable Referrals: Rivera Tripp DO [Primary Care Provider] - 1-2 days - Out of Hospital Transfer - Req. Specs Out of Hospital Transfer - Requested Specifics: Other Emergency Center
[2024-09-26 18:44] LABS: Basophils % (A) 0 %; Eosinophils # (A) 0.1 k/uL (0-0.7); Eosinophils % (A) 1 %; HCT 23.7 % (34.0-46.0); Hypochromasia Marked; Lymphocytes # (A) 0.6 k/uL (1.0-4.8); Lymphocytes % (A) 6 %; MCH 21.1 pg (25.0-35.0); MCHC 28.6 g/dL (31.0-37.0); MCV 73.7 fL (80.0-100.0); Microcytosis Slight; Monocytes # (A) 0.6 k/uL (0-1.0); Monocytes % (A) 6 %; Neutrophils # (A) 8.7 k/uL (1.3-7.7); Neutrophils % (A) 86 %; Platelet Count 787 k/uL (150-450); Poikilocytosis Slight; RBC 3.22 m/uL (3.80-5.40); RDW 15.8 % (11.5-15.5); WBC 10.2 k/uL (3.8-10.6)
[2024-09-26 18:49] LABS: Appearance,Urine Turbid (Clear); Bacteria,Urine Many /hpf; Bilirubin,Urine Negative (Negative); Blood,Urine Large (Negative); Color,Urine Yellow; Glucose,Urine (UA) 4+ (Negative); Hyaline Casts,Urine 30 /lpf (0-2); Leukocyte Esterase,Urine Large (Negative); Nitrite,Urine Negative (Negative); PH, Urine 5.5 (5.0-8.0); Protein,Urine 2+ (Negative); RBC,Urine >182 /hpf (0-5); Specific Gravity,Urine 1.016 (1.001-1.035); Squamous Epithelial Cell,Urine 19 /hpf (0-4); Urobilinogen,Urine <2.0 mg/dL (<2.0); WBC,Urine >182 /hpf (0-5)
[2024-09-26 18:51] LABS: INR 1.2 (<1.2); Ketones,Urine 2+ (Negative); Partial Thromboplastin Time 22.2 sec (22.0-30.0); Prothrombin Time 12.8 sec (10.0-12.5)
[2024-09-26 18:56] LABS: HGB 6.8 gm/dL (11.4-16.0)
[2024-09-26] MEDS: ACETAMINOPHEN TAB 325 MG TAB PO STA (18:57)
[2024-09-26] MEDS: SODIUM CHLORIDE 0.9% 1,000 ML IV STA (18:57)
[2024-09-26] MEDS: ONDANSETRON 4 MG/2 ML VIAL IVP STA (18:57)
[2024-09-26] MEDS: HYDROmorphone 0.5 MG/0.5 ML SYRINGE IVP STA (18:58)
[2024-09-26 19:06] LABS: ALT 234 U/L (4-34); AST 313 U/L (14-36); African American GFR (CKD) >90 (>60 ml/min/1.73 sqM); Albumin 3.4 g/dL (3.5-5.0); Alkaline Phosphatase 322 U/L (38-126); Amylase 31 U/L (30-110); Anion Gap 19 mmol/L; Blood Urea Nitrogen 33 mg/dL (7-17); Calcium 9.7 mg/dL (8.4-10.2); Carbon Dioxide 20 mmol/L (22-30); Chloride 89 mmol/L (98-107); Glucose 359 mg/dL (74-99); Lipase 97 U/L (23-300); Non-African American GFR(CKD) 82 (>60 ml/min/1.73 sqM); Potassium 5.6 mmol/L (3.5-5.1); Sodium 128 mmol/L (137-145); Total Bilirubin 0.4 mg/dL (0.2-1.3)
[2024-09-26 19:09] LABS: Anisocytosis (M) Present; Hypochromasia (M) Present; Large Platelets Present; Target Cells Present
--- NOTE | 2024-09-26 19:09 | CT ---
EXAMINATION TYPE: CT abdomen pelvis w con DATE OF EXAM: 09/26/2024 6:43 PM COMPARISON: 08/28/2024 CLINICAL INDICATION: Female, 44 years old with history of RLQ pain, Right flank pain, RLQ pain, flank pain TECHNIQUE: Axial images were obtained from above the diaphragm to the pubic rami in the axial plane a t 5 mm thick sections. Reconstructed images are reviewed on the computer in the coronal plane. CONTRAST: 100 mL of Isovue 300. Study performed without Oral Contrast DLP: 727.6 mGycm, Automated exposure control for dose reduction was used. FINDINGS: Limited CT sections are obtained the lung bases. There is a left lower lobe infiltrate. Correlate fo r atelectasis or pneumonia. Small right pleural effusion is present.. CT ABDOMEN: Liver: Normal Spleen: Normal Pancreas: Normal Adrenal glands: The adrenal glands are normal. Gallbladder: Visualized Kidneys: There is a low density collection along the lateral left cortex of the kidney. This measures 23 Hounsfield units. This is an interval change from the comparison. Differential should include a c apsular hematoma and a urinoma. Has there been any recent intervention or trauma? Abscess could be co nsidered in the proper clinical setting. Findings are an interval change from August 2024 but were partially visualized on a recent CT chest of 09/23/2024. There is a tiny amount of air within the mid upper right kidney. Aorta: Vascular calcification is within the aorta. Inferior vena cava: Normal. CT PELVIS: Fecal debris is through the colon. No suspicious dilated loops of bowel are evident. There are loops of bowel which are incompletely distended or lack oral contrast limiting their evaluation. Appendix: Normal as visualized. Urinary bladder: There is a rim of air along the inner wall of the urinary bladder. Air-fluid levels within the urinary bladder. Correlate for emphysematous cystitis. Genitourinary structures: Uterus is normal. Adnexa are unremarkable. Osseous structures: No suspicious lytic or sclerotic lesions. IMPRESSION: 1. Emphysematous cystitis. 2. Appears to be a subcapsular hematoma or neuroma along the lateral left kidney, an interval change. Abscess could be considered in the proper clinical setting. 3. Normal appendix without inflammatory changes [facility], , 09/26/2024 7:07 PM
[2024-09-26] MEDS: DEXTROSE 50% SYRINGE 50 ML IVP ONE (20:25)
[2024-09-26 20:32] LABS: Glucose,Whole Blood 448 mg/dL (70-110)
[2024-09-26] MEDS: INSULIN REGULAR 100 UNIT/ML VIAL (IV) IV ONE (20:34)
[2024-09-26] MEDS: CALCIUM GLUCONATE IN NACL 1 GM in SALINE 1 100ML.BAG IVPB ONE (20:36)
[2024-09-26] MEDS: SODIUM CHLORIDE 0.9% 1,000 ML IV ONE (20:36)
[2024-09-26] MEDS ORDERED: VANCOMYCIN IV PER PHARMACY 1 EACH MISC MISCELLANE PRN (20:56)
[2024-09-26] MEDS: HYDROmorphone 1 MG/ML 1 ML SYRINGE IVP STA (21:17)
[2024-09-26] MEDS: CEFEPIME 2 GM in SODIUM CHLORIDE 0.9% 100 ML IVPB STA (21:20)
[2024-09-26] MEDS: INSULIN REGULAR 100 UNIT in SODIUM CHLORIDE 0.9% 100 ML IV SCH (21:32)
[2024-09-26] MEDS: INSULIN REGULAR BOLUS (FROM DRIP BAG) IV ONE (21:35)
[2024-09-26 21:36] LABS: Phosphorus 3.7 mg/dL (2.5-4.5)
[2024-09-26] MEDS: SODIUM CHLORIDE 0.9% 1,000 ML IV SCH (21:43)
[2024-09-26] MEDS: IPRATROPIUM-ALBUTEROL 3 ML NEB INHALATION STA (21:48)
[2024-09-26 21:51] VITALS: BP 125/85; PULSE 112
[2024-09-26] MEDS ORDERED: VANCOMYCIN 1,250 MG in SODIUM CHLORIDE 0.9% 250 ML IVPB ONE (22:00)
[2024-09-27] MEDS ORDERED: VANCOMYCIN 1,000 MG in SODIUM CHLORIDE 0.9% 250 ML IVPB SCH (10:00)
== END 2024-09-26 21:50 | disposition other institution (70) ==
LOC: EC 17:15
DX: S37.012A Minor contusion of left kidney, initial encounter (principal); N30.80 Other cystitis without hematuria; E11.10 Type 2 diabetes mellitus with ketoacidosis without coma; J45.909 Unspecified asthma, uncomplicated; Z88.1 Allergy status to other antibiotic agents; Z88.0 Allergy status to penicillin; Z88.2 Allergy status to sulfonamides; Z88.5 Allergy status to narcotic agent; Z88.8 Allergy status to other drugs, medicaments and biological substances; Z79.4 Long term (current) use of insulin; Z79.899 Other long term (current) drug therapy; Z86.73 Personal history of transient ischemic attack (TIA), and cerebral infarction without residual deficits; X58.XXXA Exposure to other specified factors, initial encounter
CPT/HCPCS: 36415; 93005; 86900; 86901; 80053; 82150; 82009; 83605; 83690; 83735; 84100; 85025; 85610; 85730; 86850; 86920; 81001; 81025; 87040; 87086; 74177; 99291; 96372; 96365; 96367; 96361; 96375; 96376; J2405; J0692; J1171 ×2; Q9967; J0613; 87077; 87186

== ENCOUNTER 2024-12-21 10:28 | Emergency (ER) | payer OTHER ==
[2024-12-21] MEDS: LIDOCAINE/EPINEPHR/TETRACAINE 5 ML BOTTLE TOPICAL ONE (10:42)
--- NOTE | 2024-12-21 10:58 | ED ---
Head Injury HPI - General Chief complaint: Head Injury Stated complaint: Fall head injury Time Seen by Provider: 12/21/24 10:35 Source: patient, RN notes reviewed Mode of arrival: ambulatory Limitations: no limitations - History of Present Illness Initial comments: 44-year-old female presents emergency department with chief complaint of head injury. Patient states that she slipped in the tub striking her head. Patient is on Eliquis. Patient states that she has headache minimal neck discomfort. Patient has a notable laceration on her tetanus up-to-date. Patient offers no other complaints. - Related Data Home Medications Medication Instructions Recorded Confirmed Albuterol Inhaler [Ventolin Hfa 2 puff INHALATION RT-QID PRN 04/15/17 12/21/24 Inhaler] HYDROcodone/APAP 10-325MG [[place] 1 tab PO BID 01/14/18 12/21/24 10-325] Loratadine [Claritin] 10 mg PO DAILY 03/26/23 12/21/24 Famotidine [Pepcid] 20 mg PO DAILY 07/25/23 12/21/24 levETIRAcetam [Keppra] 500 mg PO DAILY 08/29/23 12/21/24 Cyclobenzaprine [Flexeril] 10 mg PO HS 11/11/23 12/21/24 Lidocaine-Prilocaine Cream [Emla 1 applic TOPICAL BID PRN 11/11/23 12/21/24 Cream 2.5%/2.5%] Ondansetron Odt [Zofran ODT] 4 mg PO Q4H PRN 04/06/24 12/21/24 Albuterol Nebulized [Ventolin 2.5 mg INHALATION RT-QID PRN 11/04/24 12/21/24 Nebulized] Apixaban [Eliquis] 5 mg PO BID 11/04/24 12/21/24 Budesonide/Formoterol Fumarate 2 puff INHALATION RT-BID 11/04/24 12/21/24 [Symbicort 160-4.5 Mcg Inhaler] Empagliflozin [Jardiance] 10 mg PO DAILY 11/04/24 12/21/24 Furosemide [Lasix] 40 mg PO DAILY 11/04/24 12/21/24 Metoprolol Tartrate [Lopressor] 50 mg PO DAILY 11/04/24 12/21/24 Pregabalin [Lyrica] 50 mg PO DAILY 11/04/24 12/21/24 Pantoprazole [Protonix] 40 mg PO DAILY PRN 12/21/24 12/21/24 Sodium Bicarbonate 325 mg PO DAILY 12/21/24 12/21/24 Allergies/Adverse reactions: Allergies Allergy/AdvReac Type Severity Reaction Status Date / Time Penicillins Allergy Nausea & Verified 12/21/24 12:05 Vomiting, rash codeine AdvReac Nausea & Verified 12/21/24 12:05 Vomiting morphine AdvReac Nausea & Verified 12/21/24 12:05 Vomiting Sulfa (Sulfonamide AdvReac Nausea & Verified 12/21/24 12:05 Antibiotics) Vomiting, rash tramadol AdvReac Per Verified 12/21/24 12:05 patient, cannot take with Keppra Review of Systems ROS Statement: Those systems with pertinent positive or pertinent negative responses have been documented in the HPI. ROS Other: All systems not noted in ROS Statement are negative. Past Medical History Past Medical History: Asthma, Heart Failure, CVA/TIA, Diabetes Mellitus, GI Bleed, Pneumonia, Seizure Disorder Additional Past Medical History / Comment(s): NIDDM type II, grand mal seizure and stroke once in 2017, lower GI bleed, mild diverticular dx, PCOS, bronchitis, pneumonia, migraines, allergic rhinitis. Kidney stones, last seizure 10/29/24- still has small bruise on back from falling r/t seizure, currently has pleural effusion bilat History of Any Multi-Drug Resistant Organisms: MRSA, None Reported Date of last positivie culture/infection: 2011 MDRO Source:: Lungs Past Surgical History: Section, Cholecystectomy, Tubal Ligation Additional Past Surgical History / Comment(s): colonoscopies, R groin mole removed then resected d/t abnormal cells-bening, kidney stones surgically removed, bilat cataracts removed, glaucoma sx, bilat retainal sx for bleeding, rt thoracentesis bilat at [facility] Past Anesthesia/Blood Transfusion Reactions: No Reported Reaction Past Psychological History: Anxiety Smoking Status: Never smoker Past Alcohol Use History: None Reported Past Drug Use History: None Reported - Past Family History Father Family Medical History: Cancer Additional Family Medical History / Comment(s): COLON, MELANOMA ON HIS CHEST AND HE ALSO HAS BENIGN BRAIN TUMORS 2, diabetes, pancreatic cancer. FATHER IS alive. Mother Family Medical History: Cancer, Dialysis Additional Family Medical History / Comment(s): MELANOMA THAT METASTASIZED TO THE BRAIN- FROM AT AGE 49 YRS. Mother had an OH at age 34 with angioplasty at age 36 yrs and another OH, and history of diabetes. Patient has many aunts, uncles and nieces with diabetes on her mother's side. Brother(s) Family Medical History: Cancer Additional Family Medical History / Comment(s): Patient has one half-brother with kidney stones, full brother with no major medical problems. Patient has 1 sister with no major medical problems. Daughter(s) Additional Family Medical History / Comment(s): Patient has 2 daughters and her youngest daughter has history of seizure disorder. Patient has one son with no major medical problems. General Exam Limitations: no limitations General appearance: alert, in no apparent distress Head exam: Present: atraumatic, normocephalic. Absent: normal inspection (3 cm forehead) Eye exam: Present: normal appearance, PERRL, EOMI. Absent: scleral icterus, conjunctival injection, periorbital swelling ENT exam: Present: normal exam, normal oropharynx, mucous membranes moist Neck exam: Present: normal inspection, full ROM. Absent: tenderness, meningismus, lymphadenopathy Respiratory exam: Present: normal lung sounds bilaterally. Absent: respiratory distress, wheezes, rales, rhonchi, stridor Cardiovascular Exam: Present: regular rate, normal rhythm, normal heart sounds. Absent: systolic murmur, diastolic murmur, rubs, gallop, clicks Neurological exam: Present: alert, oriented X3, CN II-XII intact, reflexes normal. Absent: motor sensory deficit Course Vital Signs 12/21/24 12/21/24 12/21/24 10:30 11:04 12:18 Temperature 97.3 F L 98.0 F 98.1 F Pulse Rate 108 H 104 H 102 H Respiratory 18 20 20 Rate Blood Pressure 173/108 167/114 148/98 O2 Sat by Pulse 94 L 95 95 Oximetry Procedures - Laceration Laceration #1 Consent Obtained: verbal consent Indication: laceration Site: face Size (cm): 3 Description: irregular Depth: simple, single layer Anesthetic Used: lidocaine 1%, without epi Anesthesia Technique: local infiltration Amount (mls): 3 Pre-repair: wound explored, irrigated extensively, deep structures intact Type of Sutures: nylon Size of Sutures: 6-0 Number of Sutures: 9 Technique: simple, interrupted Patient Tolerated Procedure: well, no complications Medical Decision Making - Medical Decision Making Was pt. sent in by a medical professional or institution (EVIE Killian, HIGH SCHOOL HOME ECONOMICS TEACHER, urgent care, hospital, or half-way...) When possible be specific @ -No Did you speak to anyone other than the patient for history (EMS, parent, family, police, friend...)? What history was obtained from this source @ -No Did you review nursing and triage notes (agree or disagree)? Why? @ -I reviewed and agree with nursing and triage notes Were old charts reviewed (outside hosp., previous admission, EMS record, old EKG, old radiological studies, urgent care reports/EKG's, half-way records)? Report findings @ -No old charts were reviewed Differential Diagnosis (chest pain, altered mental status, abdominal pain women, abdominal pain men, vaginal bleeding, weakness, fever, dyspnea, syncope, headache, dizziness, GI bleed, back pain, seizure, CVA, palpatations, mental health, musculoskeletal)? @ -Fall, intracranial hemorrhage, cervical fracture, facial laceration, skull fracture EKG interpreted by me (3pts min.). @ -None X-rays interpreted by me (1pt min.). @ -None done CT interpreted by me (1pt min.). @ -CT brain, C-spine showing no acute intracranial hemorrhage, mass effect no cervical fracture noted U/S interpreted by me (1pt. min.). @ -None done What testing was considered but not performed or refused? (CT, X-rays, U/S, labs)? Why? @ -None What meds were considered but not given or refused? Why? @ -None Did you discuss the management of the patient with other professionals (professionals i.e. EVIE Killian, HIGH SCHOOL HOME ECONOMICS TEACHER, lab, RT, psych nurse, criminal justice social worker, medical engineer, teacher, life science technical officer, case finisher)? Give summary @ -No Was smoking cessation discussed for >3mins.? @ -No Was critical care preformed (if so, how long)? @ -No Were there social determinants of health that impacted care today? How? (Homelessness, low income, unemployed, alcoholism, drug addiction, transportation, low edu. Level, literacy, decrease access to med. care, senior care, rehab)? @ -No Was there de-escalation of care discussed even if they declined (Discuss DNR or withdrawal of care, Hospice)? DNR status @ -No What co-morbidities impacted this encounter? (DM, HTN, Smoking, COPD, CAD, Cancer, CVA, ARF, Chemo, Hep., AIDS, mental health diagnosis, sleep apnea, morbid obesity)? @ -None Was patient admitted / discharged? Hospital course, mention meds given and route, prescriptions, significant lab abnormalities, going to OR and other pertinent info. @ -Discharge patient presented for fall in the bathroom. Patient was called the coag immediately upon evaluation patient's tetanus is up-to-date patient did have laceration repair discharged in stable condition with close follow-up. Undiagnosed new problem with uncertain prognosis? @ -No Drug Therapy requiring intensive monitoring for toxicity (Heparin, Nitro, Insulin, Cardizem)? @ -No Were any procedures done? @ -No Diagnosis/symptom? @Fall, head injury, facial laceration Acute, or Chronic, or Acute on Chronic? @ -Acute Uncomplicated (without systemic symptoms) or Complicated (systemic symptoms)? @ -[Uncomplicated Side effects of treatment? @ -No Exacerbation, Progression, or Severe Exacerbation? @ -No Poses a threat to life or bodily function? How? (Chest pain, [place], OH, pneumonia, PE, COPD, DKA, ARF, appy, cholecystitis, CVA, Diverticulitis, Homicidal, Suicidal, threat to staff... and all critical care pts) @ -No Disposition Clinical Impression: Fall, Head injury, Facial laceration Disposition: HOME SELF-CARE Condition: Stable Instructions (If sedation given, give patient instructions): Head Injury (ED), Facial Laceration (ED) Additional Instructions: Please return to the Emergency Department if symptoms worsen or any other concerns. Is patient prescribed a controlled substance at d/c from ED?: No Referrals: Rivera Tripp DO [Primary Care Provider] - 1-2 days Time of Disposition: 11:50
[2024-12-21 11:07] VITALS: RESP 20
[2024-12-21] MEDS: ONDANSETRON ODT 4 MG TAB PO STA (11:11)
[2024-12-21] MEDS: HYDROmorphone 1 MG/ML 1 ML SYRINGE IM STA (11:11)
--- NOTE | 2024-12-21 11:17 | CT ---
EXAMINATION TYPE: CT brain lenora haynes con DATE OF EXAM: 12/21/2024 COMPARISON: NONE CLINICAL INDICATION: Female, 44 years old with history of pain, Fall, contusion over LT eye, on thinn ers, code coag, neck pain. TECHNIQUE: CT scan of the head and cervical spine are performed without contrast. CT DLP: 28908.2 mGycm. Automated Exposure Control for Dose Reduction was Utilized. FINDINGS: There is no acute intracranial hemorrhage, mass effect, or midline shift identified. The ventricles and sulci are within normal limits in size for patient's age. Septum pellucidum vergae i s present. The calvarium is intact. Bilateral aphakia is seen. The visualized sinuses are clear. Cervical spine is visualized in its entirety from C1 through upper thoracic levels and demonstrates s light scoliotic curvature without evidence of acute fracture or dislocation. Prevertebral soft tissu e appears within normal limits. The C1-C2 articulation is within normal limits on the coronal images . Vertebral body heights and disc space heights are within normal limits. Spinal canal is preserved. Lung apices show no pneumothorax there is partial visualization of the small size right pleural effus ion and bilateral groundglass opacity favoring mild alveolar edema. There is soft tissue edema over t he anterior wall of the lower neck greater on the right.. IMPRESSION: 1. There is no acute fracture or dislocation evident in the cervical spine. 2. No acute intracranial hemorrhage or midline shift is seen. [facility], , 12/21/2024 11:14 AM
[2024-12-21] MEDS: LIDOCAINE 1% INJ 10MG/ML (20 ML MDV) SQ ONE (11:32)
[2024-12-21 12:20] VITALS: BP 148/98; PULSE 102; TEMP 98.1
== END 2024-12-21 12:20 | disposition home or self-care (01) ==
LOC: EC 10:28
DX: S09.90XA Unspecified injury of head, initial encounter (principal); S01.81XA Laceration without foreign body of other part of head, initial encounter; Z88.0 Allergy status to penicillin; Z88.1 Allergy status to other antibiotic agents; Z88.2 Allergy status to sulfonamides; Z88.5 Allergy status to narcotic agent; W18.2XXA Fall in (into) shower or empty bathtub, initial encounter; Y92.002 Bathroom of unspecified non-institutional (private) residence as the place of occurrence of the external cause
CPT/HCPCS: 72125; 70450; 99284; 96372; 12013; J2003; J1171

== ENCOUNTER 2024-12-31 17:41 | Emergency (ER) | payer OTHER ==
[2024-12-31] MEDS ORDERED: SODIUM CHLORIDE 0.9% 500 ML 500 ML IV ONE (18:22)
--- NOTE | 2024-12-31 18:30 | ED ---
Abdominal Pain HPI - General Chief Complaint: Abdominal Pain Stated Complaint: vomiting Time Seen by Provider: 12/31/24 18:30 Source: patient, family, RN notes reviewed, old records reviewed Mode of arrival: wheelchair Limitations: no limitations - History of Present Illness Initial Comments: 44-year-old female with a past medical history significant of asthma, CHF, CVA, diabetes mellitus type 2 and lower GI bleed presenting to the ER for evaluation of abdominal pain and nausea/vomiting. Patient reports since being discharged in October from [facility] she has been having intermittent bilateral lower extremity edema for which she takes 40 mg Lasix. She has been taking these as prescribed. She states over the past week she also was endorsing a sharp epigastric/right upper quadrant abdominal discomfort. She states 3 hours prior to arrival she started to have persistent nausea and vomiting. She states nausea is dark in nature and appears as coffee. Patient does take Eliquis. Patient denies a history of upper GI bleeds, alcohol use or esophageal varices. She denies any fevers, chills, chest pain, shortness of breath or other com plaints at this time. - Related Data Home Medications Medication Instructions Recorded Confirmed Albuterol Inhaler [Ventolin Hfa 2 puff INHALATION RT-Q4H PRN 04/15/17 12/31/24 Inhaler] HYDROcodone/APAP 10-325MG [[place] 1 tab PO TID PRN 01/14/18 12/31/24 10-325] Loratadine [Claritin] 10 mg PO DAILY 03/26/23 12/31/24 levETIRAcetam [Keppra] 500 mg PO DAILY 08/29/23 12/31/24 Cyclobenzaprine [Flexeril] 10 mg PO HS 11/11/23 12/31/24 Ondansetron Odt [Zofran ODT] 4 mg PO TID PRN 04/06/24 12/31/24 Albuterol Nebulized [Ventolin 2.5 mg INHALATION RT-QID PRN 11/04/24 12/31/24 Nebulized] Apixaban [Eliquis] 5 mg PO DIRECTED 11/04/24 12/31/24 Budesonide/Formoterol Fumarate 2 puff INHALATION RT-DAILY 11/04/24 12/31/24 [Symbicort 160-4.5 Mcg Inhaler] Empagliflozin [Jardiance] 10 mg PO DAILY 11/04/24 12/31/24 Furosemide [Lasix] 40 mg PO DAILY 11/04/24 12/31/24 Metoprolol Tartrate [Lopressor] 50 mg PO DAILY 11/04/24 12/31/24 Pantoprazole [Protonix] 40 mg PO DAILY 12/21/24 12/31/24 Sodium Bicarbonate 325 mg PO DAILY 12/21/24 12/31/24 Naproxen [Naprosyn] 500 mg PO BID PRN 12/31/24 12/31/24 Allergies Allergy/AdvReac Type Severity Reaction Status Date / Time Penicillins Allergy Nausea & Verified 12/31/24 18:57 Vomiting, rash codeine AdvReac Nausea & Verified 12/31/24 18:57 Vomiting morphine AdvReac Nausea & Verified 12/31/24 18:57 Vomiting Sulfa (Sulfonamide AdvReac Nausea & Verified 12/31/24 18:57 Antibiotics) Vomiting, rash tramadol AdvReac Per Verified 12/31/24 18:57 patient, cannot take with Keppra Review of Systems ROS Statement: Those systems with pertinent positive or pertinent negative responses have been documented in the HPI. ROS Other: All systems not noted in ROS Statement are negative. Past Medical History Past Medical History: Asthma, Heart Failure, CVA/TIA, Diabetes Mellitus, GI Bleed, Pneumonia, Seizure Disorder Additional Past Medical History / Comment(s): NIDDM type II, grand mal seizure and stroke once in 2017, lower GI bleed, mild diverticular dx, PCOS, bronchitis, pneumonia, migraines, allergic rhinitis. Kidney stones, last seizure 10/29/24-still has small bruise on back from falling r/t seizure, currently has pleural effusion bilat History of Any Multi-Drug Resistant Organisms: MRSA, None Reported Date of last positivie culture/infection: 2011 MDRO Source:: Lungs Past Surgical History: Section, Cholecystectomy, Tubal Ligation Additional Past Surgical History / Comment(s): colonoscopies, R groin mole re moved then resected d/t abnormal cells-bening, kidney stones surgically removed, bilat cataracts removed, glaucoma sx, bilat retainal sx for bleeding, rt thoracentesis bilat at [facility] Past Anesthesia/Blood Transfusion Reactions: No Reported Reaction Past Psychological History: Anxiety Smoking Status: Never smoker Past Alcohol Use History: None Reported Past Drug Use History: None Reported - Past Family History Father Family Medical History: Cancer Additional Family Medical History / Comment(s): COLON, MELANOMA ON HIS CHEST AND HE ALSO HAS BENIGN BRAIN TUMORS 2, diabetes, pancreatic cancer. FATHER IS alive. Mother Family Medical History: Cancer, Dialysis Additional Family Medical History / Comment(s): MELANOMA THAT METASTASIZED TO THE BRAIN- FROM AT AGE 49 YRS. Mother had an IL at age 34 with angioplasty at age 36 yrs and another IL, and history of diabetes. Patient has many aunts, uncles and nieces with diabetes on her mother's side. Brother(s) Family Medical History: Cancer Additional Family Medical History / Comment(s): Patient has one half-brother with kidney stones, full brother with no major medical problems. Patient has 1 sister with no major medical problems. Daughter(s) Additional Family Medical History / Comment(s): Patient has 2 daughters and her youngest daughter has history of seizure disorder. Patient has one son with no major medical problems. General Exam Limitations: no limitations General appearance: alert, in no apparent distress Head exam: Present: atraumatic, normocephalic, normal inspection, other (Healing laceration to left forehead) Respiratory exam: Present: normal lung sounds bilaterally Cardiovascular Exam: Present: normal rhythm, tachycardia, normal heart sounds GI/Abdominal exam: Present: distended, tenderness (Epigastric/right upper quadrant), normal bowel sounds Extremities exam: Present: normal inspection, pedal edema (2+ bilateral pitting edema) Neurological exam: Present: alert, oriented X3, CN II-XII intact Skin exam: Present: warm, dry, intact, normal color. Absent: rash Course Vital Signs 12/31/24 12/31/24 12/31/24 17:43 18:39 19:00 Temperature 97.8 F Pulse Rate 115 H 107 H Pulse Rate [ Pulse Oximetery ] Respiratory 24 20 18 Rate Blood Pressure 158/116 162/109 Blood Pressure 170/116 [Right Arm] O2 Sat by Pulse 95 95 95 Oximetry 12/31/24 12/31/24 19:41 21:20 Temperature 98.1 F 98.0 F Pulse Rate 80 Pulse Rate [ 107 H Pulse Oximetery ] Respiratory 20 18 Rate Blood Pressure 154/112 Blood Pressure 144/97 [Right Arm] O2 Sat by Pulse 98 98 Oximetry - Reevaluation(s) Reevaluation #1: 12/31/24 20:[address] [facility], , accepting transfer Medical Decision Making - Medical Decision Making Was pt. sent in by a medical professional or institution (, PA, MILK VENDOR, urgent care, hospital, or care home...) When possible be specific @ -No Did you speak to anyone other than the patient for history (EMS, parent, family, police, friend...)? What history was obtained from this source @ -Patient's son, at bedside, aiding in HPI past medical history. Did you review nursing and triage notes (agree or disagree)? Why? @ -I reviewed and agree with nursing and triage notes Were old charts reviewed (outside hosp., previous admission, EMS record, old EKG, old radiological studies, urgent care reports/EKG's, care home records)? Report findings @ -Yes reviewed ER visit and transfer from 09-26-2024 patient seen here and transferred to [facility] for further evaluation of subcapsular hematoma, emphysematous cystitis, sepsis and DKA. Patient also seen on 12 21 24 for a fall with head injury. CT brain and C-spine negative for acute intracranial hemorr hany or midline shift. No cervical spine fracture or dislocation. Patient also noted to have a laceration which was repaired. Differential Diagnosis (chest pain, altered mental status, abdominal pain women, abdominal pain men, vaginal bleeding, weakness, fever, dyspnea, syncope, headac he, dizziness, GI bleed, back pain, seizure, CVA, palpatations, mental health, musculoskeletal)? @ -Differential Abdominal Pain Women:Appendicitis, Cholecystitis, diverticulosis, ischemic bowel, pancreatitis, hepatitis, UTI, gastroenteritis, AAA, incarcerated hernia, bowel obstruction, constipation, inflammatory bowel, hepatitis, peptic ulcer disease, splenic infarction, perforated viscus, vulvi tis, ovarian torsion, PID, kidney stone, placenta abruption, this is not meant to be an all-inclusive list EKG interpreted by me (3pts min.). @ -As above X-rays interpreted by me (1pt min.). @ -CXR showing cardiomegaly with mild pulmonary vascular congestion trace bilateral pleural effusions. CT interpreted by me (1pt min.). @ -CT abdomen pelvis showing a complex peripherally thick walled enhancing subcapsular left renal fluid collection decreasing in size compared to prior 09-26-2024. Given previously seen emphysematous cystitis findings felt to reflect subcapsular abscess. No internal gas within collection. Cardiomegaly, small left and trace right pleural effusions with diffuse body wall edema/anasarca suggesting fluid volume overload. U/S interpreted by me (1pt. min.). @ -None done What testing was considered but not performed or refused? (CT, X-rays, U/S, labs)? Why? @ -None What meds were considered but not given or refused? Why? @ -IV fluids held given pitting edema and history of CHF. Antibiotics were ordered but patient did not receive them prior to transfer as this would have delayed transfer approximately 30 minutes as antibiotics had to be sent from pharmacy. IV Rocephin was considered instead but was not given as patient has anaphylactic reaction to penicillins, patient also refused given concern of allergic reaction. Did you discuss the management of the patient with other professionals (professionals i.e. , PA, MILK VENDOR, lab, RT, psych nurse, social welfare clerk, glue mill operator, teacher, deck officer, complex case manager)? Give summary @ -Case discussed with Dr. Asha Garner, excepting transfer. Was smoking cessation discussed for >3mins.? @ -No Was critical care preformed (if so, how long)? @ -No Were there social determinants of health that impacted care today? How? (Homelessness, low income, unemployed, alcoholism, drug addiction, transportation, low edu. Level, literacy, decrease access to med. care, group home, rehab)? @ -No Was there de-escalation of care discussed even if they declined (Discuss DNR or withdrawal of care, Hospice)? DNR status @ -No What co-morbidities impacted this encounter? (DM, HTN, Smoking, COPD, CAD, Ca ncer, CVA, ARF, Chemo, Hep., AIDS, mental health diagnosis, sleep apnea, morbid obesity)? @ -Diabetes mellitus, GI bleed, CHF, asthma Was patient admitted / discharged? Hospital course, mention meds given and route, prescriptions, significant lab abnormalities, going to OR and other pertinent info. @ -Transfer. 44-year-old female presenting to the ER for evaluation of abdominal pain along with nausea and vomiting. Upon rooming, history and physical exam completed. Patient is tachycardic 115 bpm and hypertensive 158/116 vitals otherwise acceptable limits. Patient is actively vomiting on exam emesis appears to be dark brown in nature. There is epigastric/right upper quadrant abdominal tenderness on exam with no evidence of rebound or guarding. Also noted 2+ bilateral pretibial pitting edema. Laboratory studies along with CT abdomen pelvis will be obtained. Patient will receive symptomatic treatment. Laboratory studies obtained showing WBC of 8.8, stable hemoglobin of 13.3, lactic 1.6. Patient is hyperglycemic 431 for which he received 10 units subcu insulin. Mild transaminitis total bilirubin 0.9, AST 37, ALT 41, alk phos 295. Acetone negative. Gastric occult blood positive. Urinalysis with small blood and 20 RBCs possibly secondary to subcapsular hematoma. 4+ glucose, patient is diabetic. hCG negative. CT abdomen pelvis performed due to nausea vomiting and focal abdominal tenderness and is showing concerning signs of a subcapsular left renal abscess versus hematoma. Given these findings and patient's recent admission to [facility] transfer was considered and accepted by Dr. Barry for continuity of care of left renal inflammatory process and higher level of care of possibly upper GI bleed, as GI services are not available at our hospital. Patient received symptomatic treatment in the ER with IV Dilaudid and Zofran without reoccurring episodes of emesis. Patient also received 80 mg IV Protonix. Antibiotcs, 2g cefepime, was ordered but patient did not receive them prior to transfer as they had to be sent from pharmacy, blood cultures were obtained. This would have delayed transfer approximately 30 minutes. IV Rocephin was considered instead but was not given as patient has anaphylactic reaction to penicillins, patient also refused given her concern of reaction. IV fluids held given pitting edema and patient's history of CHF. Patient was intermittently placed on 2 L nasal cannula oxygen for comfort, not hypoxia, by RN. Upon reevaluation, oxygen removed and patient's oxygen saturation remained stable at 100% on room air. Patient given 1 mg IV Dilaudid and 10 mg Reglan prior to transfer for pain control and route to [facility]. Patient agreeable for transfer. Patient will be transferred in stable condition to [facility] via EMS for further evaluation and treatment. Case discussed with ED attending, Dr. Boateng who also evaluated patient. Undiagnosed new problem with uncertain prognosis? @ -No Drug Therapy requiring intensive monitoring for toxicity (Heparin, Nitro, Insulin, Cardizem)? @ -No Were any procedures done? @ -No Diagnosis/symptom? @ -Subcapsular left renal abscess versus hematoma/ rule out upper GI bleed Acute, or Chronic, or Acute on Chronic? @ -Acute Uncomplicated (without systemic symptoms) or Complicated (systemic symptoms)? @ -Complicated Side effects of treatment? @ -No Exacerbation, Progression, or Severe Exacerbation? @ -No Poses a threat to life or bodily function? How? (Chest pain, USA, IL, pneumonia, PE, COPD, DKA, ARF, appy, cholecystitis, CVA, Diverticulitis, Homicidal, Suicidal, threat to staff... and all critical care pts) @ -Yes - Lab Data Result diagrams: 12/31/24 18:47 12/31/24 18:46 Lab Results 12/31/24 12/31/24 12/31/24 Range/Units 18:46 18:46 18:47 WBC 8.82 (4.50-10.00) 10*3/uL RBC 5.58 H (4.10-5.20) 10*6/uL Hgb 13.3 (12.0-15.0) g/dL Hct 42.7 (37.2-46.3) % MCV 76.5 L (80.0-97.0) fL MCH 23.8 L (27.0-32.0) pg MCHC 31.1 L (32.0-37.0) g/dL Plt Count 413 (140-440) 10*3/uL MPV 8.9 L (9.5-12.2) fL Immature Gran % (Auto) 0.2 % Neutrophils % 85.7 % Lymphocytes % 6.5 % Monocytes % 5.4 % Eosinophils % 1.2 % Basophils % 1.0 % Immature Gran # 0.02 (0.00-0.04) 10*3/uL Neutrophils # 7.55 (1.80-7.70) 10*3/uL Lymphocytes # 0.57 L (0.90-5.00) 10*3/uL Monocytes # 0.48 (0.20-1.00) 10*3/uL Eosinophils # 0.11 (0.04-0.35) 10*3/uL Basophils # 0.09 (0.00-0.10) 10*3/uL PT (10.0-12.5) sec INR (<1.2) APTT (22.0-30.0) sec Sodium 126 L (137-145) mmol/L Potassium 4.6 (3.5-5.1) mmol/L Chloride 85 L (98-107) mmol/L Carbon Dioxide 33 H (22-30) mmol/L Anion Gap 8 mmol/L BUN 17 (7-17) mg/dL Creatinine 0.60 (0.52-1.04) mg/dL Est GFR (CKD-EPI)AfAm >90 (>60 ml/min/1.73 sqM) Est GFR (CKD-EPI)NonAf >90 (>60 ml/min/1.73 sqM) Glucose 431 H (74-99) mg/dL POC Glucose (mg/dL) (70-110) mg/dL POC Glu Warehouse Checker ID Plasma Lactic Acid Carlos 1.6 (0.7-2.0) mmol/L Calcium 9.7 (8.4-10.2) mg/dL Total Bilirubin 0.9 (0.2-1.3) mg/dL AST 37 H (14-36) U/L ALT 41 H (4-34) U/L Alkaline Phosphatase 295 H (38-126) U/L Total Protein 7.5 (6.3-8.2) g/dL Albumin 3.2 L (3.5-5.0) g/dL Amylase 35 (30-110) U/L Lipase 228 (23-300) U/L Urine Color Urine Appearance (Clear) Urine pH (5.0-8.0) Ur Specific [place] (1.001-1.035) Urine Protein (Negative) Urine Glucose (UA) (Negative) Urine Ketones (Negative) Urine Blood (Negative) Urine Nitrite (Negative) Urine Bilirubin (Negative) Urine Urobilinogen (<2.0) mg/dL Ur Leukocyte Esterase (Negative) Urine RBC (0-5) /hpf Urine WBC (0-5) /hpf Ur Squamous Epith Cells (0-4) /hpf Urine HCG, Qual (Not Detectd) Gastric Occult Blood (Negative) Acetone, Qual Negative (Negative) 12/31/24 12/31/24 12/31/24 Range/Units 18:47 18:47 18:47 WBC (4.50-10.00) 10*3/uL RBC (4.10-5.20) 10*6/uL Hgb (12.0-15.0) g/dL Hct (37.2-46.3) % MCV (80.0-97.0) fL MCH (27.0-32.0) pg MCHC (32.0-37.0) g/dL Plt Count (140-440) 10*3/uL MPV (9.5-12.2) fL Immature Gran % (Auto) % Neutrophils % % Lymphocytes % % Monocytes % % Eosinophils % % Basophils % % Immature Gran # (0.00-0.04) 10*3/uL Neutrophils # (1.80-7.70) 10*3/uL Lymphocytes # (0.90-5.00) 10*3/uL Monocytes # (0.20-1.00) 10*3/uL Eosinophils # (0.04-0.35) 10*3/uL Basophils # (0.00-0.10) 10*3/uL PT 11.5 (10.0-12.5) sec INR 1.1 (<1.2) APTT 21.4 L (22.0-30.0) sec Sodium (137-145) mmol/L Potassium (3.5-5.1) mmol/L Chloride (98-107) mmol/L Carbon Dioxide (22-30) mmol/L Anion Gap mmol/L BUN (7-17) mg/dL Creatinine (0.52-1.04) mg/dL Est GFR (CKD-EPI)AfAm (>60 ml/min/1.73 sqM) Est GFR (CKD-EPI)NonAf (>60 ml/min/1.73 sqM) Glucose (74-99) mg/dL POC Glucose (mg/dL) (70-110) mg/dL POC Glu Warehouse Checker ID Plasma Lactic Acid Carlos (0.7-2.0) mmol/L Calcium (8.4-10.2) mg/dL Total Bilirubin (0.2-1.3) mg/dL AST (14-36) U/L ALT (4-34) U/L Alkaline Phosphatase (38-126) U/L Total Protein (6.3-8.2) g/dL Albumin (3.5-5.0) g/dL Amylase (30-110) U/L Lipase (23-300) U/L Urine Color Colorless Urine Appearance Clear (Clear) Urine pH 7.5 (5.0-8.0) Ur Specific [place] 1.038 H (1.001-1.035) Urine Protein 2+ H (Negative) Urine Glucose (UA) 4+ H (Negative) Urine Ketones Negative (Negative) Urine Blood Small H (Negative) Urine Nitrite Negative (Negative) Urine Bilirubin Negative (Negative) Urine Urobilinogen <2.0 (<2.0) mg/dL Ur Leukocyte Esterase Negative (Negative) Urine RBC 20 H (0-5) /hpf Urine WBC 13 H (0-5) /hpf Ur Squamous Epith Cells <1 (0-4) /hpf Urine HCG, Qual (Not Detectd) Gastric Occult Blood Positive (Negative) Acetone, Qual (Negative) 12/31/24 12/31/24 12/31/24 Range/Units 18:47 18:50 19:47 WBC (4.50-10.00) 10*3/uL RBC (4.10-5.20) 10*6/uL Hgb (12.0-15.0) g/dL Hct (37.2-46.3) % MCV (80.0-97.0) fL MCH (27.0-32.0) pg MCHC (32.0-37.0) g/dL Plt Count (140-440) 10*3/uL MPV (9.5-12.2) fL Immature Gran % (Auto) % Neutrophils % % Lymphocytes % % Monocytes % % Eosinophils % % Basophils % % Immature Gran # (0.00-0.04) 10*3/uL Neutrophils # (1.80-7.70) 10*3/uL Lymphocytes # (0.90-5.00) 10*3/uL Monocytes # (0.20-1.00) 10*3/uL Eosinophils # (0.04-0.35) 10*3/uL Basophils # (0.00-0.10) 10*3/uL PT (10.0-12.5) sec INR (<1.2) APTT (22.0-30.0) sec Sodium (137-145) mmol/L Potassium (3.5-5.1) mmol/L Chloride (98-107) mmol/L Carbon Dioxide (22-30) mmol/L Anion Gap mmol/L BUN (7-17) mg/dL Creatinine (0.52-1.04) mg/dL Est GFR (CKD-EPI)AfAm (>60 ml/min/1.73 sqM) Est GFR (CKD-EPI)NonAf (>60 ml/min/1.73 sqM) Glucose (74-99) mg/dL POC Glucose (mg/dL) 378 H 438 H (70-110) mg/dL POC Glu Warehouse Checker ID Migdalia Hogue [facility]TTNA Plasma Lactic Acid Carlos (0.7-2.0) mmol/L Calcium (8.4-10.2) mg/dL Total Bilirubin (0.2-1.3) mg/dL AST (14-36) U/L ALT (4-34) U/L Alkaline Phosphatase (38-126) U/L Total Protein (6.3-8.2) g/dL Albumin (3.5-5.0) g/dL Amylase (30-110) U/L Lipase (23-300) U/L Urine Color Urine Appearance (Clear) Urine pH (5.0-8.0) Ur Specific [place] (1.001-1.035) Urine Protein (Negative) Urine Glucose (UA) (Negative) Urine Ketones (Negative) Urine Blood (Negative) Urine Nitrite (Negative) Urine Bilirubin (Negative) Urine Urobilinogen (<2.0) mg/dL Ur Leukocyte Esterase (Negative) Urine RBC (0-5) /hpf Urine WBC (0-5) /hpf Ur Squamous Epith Cells (0-4) /hpf Urine HCG, Qual Not Detected (Not Detectd) Gastric Occult Blood (Negative) Acetone, Qual (Negative) 12/31/24 Range/Units 20:50 WBC (4.50-10.00) 10*3/uL RBC (4.10-5.20) 10*6/uL Hgb (12.0-15.0) g/dL Hct (37.2-46.3) % MCV (80.0-97.0) fL MCH (27.0-32.0) pg MCHC (32.0-37.0) g/dL Plt Count (140-440) 10*3/uL MPV (9.5-12.2) fL Immature Gran % (Auto) % Neutrophils % % Lymphocytes % % Monocytes % % Eosinophils % % Basophils % % Immature Gran # (0.00-0.04) 10*3/uL Neutrophils # (1.80-7.70) 10*3/uL Lymphocytes # (0.90-5.00) 10*3/uL Monocytes # (0.20-1.00) 10*3/uL Eosinophils # (0.04-0.35) 10*3/uL Basophils # (0.00-0.10) 10*3/uL PT (10.0-12.5) sec INR (<1.2) APTT (22.0-30.0) sec Sodium (137-145) mmol/L Potassium (3.5-5.1) mmol/L Chloride (98-107) mmol/L Carbon Dioxide (22-30) mmol/L Anion Gap mmol/L BUN (7-17) mg/dL Creatinine (0.52-1.04) mg/dL Est GFR (CKD-EPI)AfAm (>60 ml/min/1.73 sqM) Est GFR (CKD-EPI)NonAf (>60 ml/min/1.73 sqM) Glucose (74-99) mg/dL POC Glucose (mg/dL) 506 H* (70-110) mg/dL POC Glu Warehouse Checker ID [facility] Plasma Lactic Acid Carlos (0.7-2.0) mmol/L Calcium (8.4-10.2) mg/dL Total Bilirubin (0.2-1.3) mg/dL AST (14-36) U/L ALT (4-34) U/L Alkaline Phosphatase (38-126) U/L Total Protein (6.3-8.2) g/dL Albumin (3.5-5.0) g/dL Amylase (30-110) U/L Lipase (23-300) U/L Urine Color Urine Appearance (Clear) Urine pH (5.0-8.0) Ur Specific [place] (1.001-1.035) Urine Protein (Negative) Urine Glucose (UA) (Negative) Urine Ketones (Negative) Urine Blood (Negative) Urine Nitrite (Negative) Urine Bilirubin (Negative) Urine Urobilinogen (<2.0) mg/dL Ur Leukocyte Esterase (Negative) Urine RBC (0-5) /hpf Urine WBC (0-5) /hpf Ur Squamous Epith Cells (0-4) /hpf Urine HCG, Qual (Not Detectd) Gastric Occult Blood (Negative) Acetone, Qual (Negative) - EKG Data -: EKG Interpreted by Me EKG Comments: EKG taken at 19: 06 showing a sinus tachycardia. No ST segment elevations or depressions. No T wave inversions. Ventricular rate 106, TX interval 150, QRS duration 82, QT/QTc 350/412. - Radiology Data Radiology results: report reviewed, image reviewed Disposition Clinical Impression: Upper GI bleed, Abnormal CT scan, kidney Disposition: OTHER INSTITUTION NOT DEFINED Condition: Stable Referrals: None,Stated [Primary Care Provider] - 1-2 days Time of Disposition: 20:26 - Out of Hospital Transfer - Req. Specs Out of Hospital Transfer - Requested Specifics: Other [facility] ([facility] care/GI services)
[2024-12-31] MEDS: ONDANSETRON 4 MG/2 ML VIAL IVP STA (18:37)
[2024-12-31] MEDS: HYDROmorphone 1 MG/ML 1 ML SYRINGE IVP STA ×2 (18:41→21:03)
[2024-12-31 18:52] LABS: Glucose,Whole Blood 378 mg/dL (70-110)
[2024-12-31] MEDS: PANTOPRAZOLE 40 MG/10 ML VIAL IVP STA (18:52)
[2024-12-31 19:00] LABS: Basophils # (A) 0.09 10*3/uL (0.00-0.10); Eosinophils # (A) 0.11 10*3/uL (0.04-0.35); Eosinophils % (A) 1.2 %; HCT 42.7 % (37.2-46.3); HGB 13.3 g/dL (12.0-15.0); Lymphocytes # (A) 0.57 10*3/uL (0.90-5.00); Lymphocytes % (A) 6.5 %; MCH 23.8 pg (27.0-32.0); MCHC 31.1 g/dL (32.0-37.0); MCV 76.5 fL (80.0-97.0); Mean Platelet Volume 8.9 fL (9.5-12.2); Monocytes # (A) 0.48 10*3/uL (0.20-1.00); Monocytes % (A) 5.4 %; Neutrophils # (A) 7.55 10*3/uL (1.80-7.70); Neutrophils % (A) 85.7 %; Platelet Count 413 10*3/uL (140-440); RBC 5.58 10*6/uL (4.10-5.20); RDW 16.5 % (11.5-14.5); WBC 8.82 10*3/uL (4.50-10.00)
[2024-12-31 19:15] LABS: ALT 41 U/L (4-34); AST 37 U/L (14-36); African American GFR (CKD) >90 (>60 ml/min/1.73 sqM); Albumin 3.2 g/dL (3.5-5.0); Alkaline Phosphatase 295 U/L (38-126); Amylase 35 U/L (30-110); Anion Gap 8 mmol/L; Blood Urea Nitrogen 17 mg/dL (7-17); Calcium 9.7 mg/dL (8.4-10.2); Carbon Dioxide 33 mmol/L (22-30); Chloride 85 mmol/L (98-107); Glucose 431 mg/dL (74-99); Lipase 228 U/L (23-300); Non-African American GFR(CKD) >90 (>60 ml/min/1.73 sqM); Potassium 4.6 mmol/L (3.5-5.1); Sodium 126 mmol/L (137-145); Total Bilirubin 0.9 mg/dL (0.2-1.3); Total Protein 7.5 g/dL (6.3-8.2)
[2024-12-31 19:20] LABS: INR 1.1 (<1.2); Partial Thromboplastin Time 21.4 sec (22.0-30.0); Prothrombin Time 11.5 sec (10.0-12.5)
--- NOTE | 2024-12-31 19:23 | XR ---
EXAMINATION TYPE: XR chest 2V DATE OF EXAM: 12/31/2024 7:19 PM COMPARISON: Prior chest radiograph, most recent dated 11/25/2024. CLINICAL INDICATION: Female, 44 years old with history of peripheral edeam; [facility] TECHNIQUE: XR chest 2V Frontal and lateral views of the chest. FINDINGS: Lungs/Pleura: There is no evidence of focal consolidation, or pneumothorax. Low lung volumes limit s tudy. Bibasilar scarring/atelectasis. Similar to prior study. Trace bilateral pleural effusions. Pulmonary vascularity: Mild pulmonary vascular congestion. Heart/mediastinum: Stable cardiomegaly. Musculoskeletal: No acute osseous pathology. Other findings: None IMPRESSION: Cardiomegaly, mild pulmonary vascular congestive changes and trace bilateral pleural effusions. [facility], , 12/31/2024 7:21 PM
[2024-12-31 19:48] LABS: Glucose,Whole Blood 438 mg/dL (70-110)
--- NOTE | 2024-12-31 19:56 | CT ---
EXAMINATION TYPE: CT abdomen pelvis w con DATE OF EXAM: 12/31/2024 7:33 PM COMPARISON: Multiple prior CT abdomen/pelvis studies, most recently dated 09/26/2024. CLINICAL INDICATION: Female, 44 years old with history of abd distention/pain /nausea/vomiting; Abd d istention/pain /nausea/vomiting. TECHNIQUE: Axial CT abdomen pelvis w con;Sagittal and coronal reformats were created on a separate w orkstation. Contrast used:100 ml mL of Isovue 300 with IV Contrast, (none if empty) Oral contrast used: without Oral Contrast (none if empty) CT DLP: 1277.8 mGycm, Automated exposure control for dose reduction was used. FINDINGS: LOWER CHEST: Partially loculated left pleural effusion with adjacent left lower lobe compressive atel ectasis. Trace right pleural effusion partially visualized. Cardiomegaly and coronary artery calcific ations. Small pericardial effusion. ABDOMEN LIVER: Unremarkable GALLBLADDER AND BILE DUCTS: The gallbladder is surgically absent. PANCREAS: Unremarkable. SPLEEN: Unremarkable. ADRENAL GLANDS: Unremarkable. KIDNEYS AND URETERS: Evolving lenticular/subcapsular left renal complex fluid collection now measurin g 5.7 x 1.9 cm with peripherally thickened wall that is enhancing. Additionally, there is thickening of the posterior and anterior renal fascia. No CT evidence of acute pyelonephritis. PELVIS BLADDER: No evidence for wall thickening or mass given limitations of exam. REPRODUCTIVE: Unremarkable. ABDOMEN & PELVIS STOMACH AND BOWEL: Stomach and duodenum are unremarkable. No evidence of bowel obstruction. Moderate volume diffuse colonic stool burden. PERITONEUM/RETROPERITONEUM: No evidence of pneumoperitoneum. VASCULATURE: No evidence of aortic aneurysm. MUSCULOSKELETAL: No acute osseous abnormalities LYMPH NODES: No gross evidence for lymphadenopathy. SOFT TISSUE/ABDOMINAL WALL: Significant diffuse bilateral edema/anasarca. IMPRESSION: 1. Complex peripherally thick walled/enhancing subcapsular left renal fluid collection, decreasing i n size compared to prior study dated 09/26/2024. 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 No internal gas within the collection. Evolving best bcapsular hematoma would also be considered a less likely differential diagnostic consideration. 2. Cardiomegaly, small left and trace right pleural effusions with diffuse body wall edema/anasarca suggesting fluid volume overload. [facility], , 12/31/2024 7:53 PM
[2024-12-31] MEDS ORDERED: CEFEPIME 2 GM in SODIUM CHLORIDE 0.9% 100 ML IVPB STA (20:19)
[2024-12-31 20:49] LABS: Appearance,Urine Clear (Clear); Bilirubin,Urine Negative (Negative); Blood,Urine Small (Negative); Color,Urine Colorless; Glucose,Urine (UA) 4+ (Negative); Ketones,Urine Negative (Negative); Leukocyte Esterase,Urine Negative (Negative); Nitrite,Urine Negative (Negative); PH, Urine 7.5 (5.0-8.0); Protein,Urine 2+ (Negative); RBC,Urine 20 /hpf (0-5); Specific Gravity,Urine 1.038 (1.001-1.035); Squamous Epithelial Cell,Urine <1 /hpf (0-4); Urobilinogen,Urine <2.0 mg/dL (<2.0); WBC,Urine 13 /hpf (0-5)
[2024-12-31 20:55] LABS: Glucose,Whole Blood 506 mg/dL (70-110)
[2024-12-31] MEDS: INSULIN LISPRO (HumaLOG) 100 UNIT/ML 10 mL VL SQ ONE (21:00)
[2024-12-31] MEDS: METOCLOPRAMIDE 5 MG/ML 2 ML VIAL IVP STA (21:07)
[2024-12-31 21:24] VITALS: BP 154/112; PULSE 80; RESP 18; TEMP 98
== END 2024-12-31 21:20 | disposition other institution (70) ==
LOC: EC 17:41
DX: N15.1 Renal and perinephric abscess (principal); K92.2 Gastrointestinal hemorrhage, unspecified; E11.9 Type 2 diabetes mellitus without complications; I11.0 Hypertensive heart disease with heart failure; I50.9 Heart failure, unspecified; J45.909 Unspecified asthma, uncomplicated; Z88.0 Allergy status to penicillin; Z88.5 Allergy status to narcotic agent; Z88.2 Allergy status to sulfonamides; Z88.6 Allergy status to analgesic agent; Z79.01 Long term (current) use of anticoagulants
CPT/HCPCS: 36415; 93005; 80053; 82150; 82009; 83605; 83690; 85025; 85610; 85730; 82271; 81001; 81025; 87086; 71046; 74177; 99285; 96374; 96375; 96376; J2765; J2405; J1171; Q9967; J2470

== ENCOUNTER 2025-01-11 23:03 | Emergency (ER) | payer OTHER ==
[2025-01-11 23:08] VITALS: RESP 18; TEMP 98.1
--- NOTE | 2025-01-11 23:42 | ED ---
Nausea/Vomiting/Diarrhea HPI - General Chief complaint: Nausea/Vomiting/Diarrhea Stated complaint: NV, Face swelling Time Seen by Provider: 01/11/25 23:42 Source: patient, RN notes reviewed Mode of arrival: ambulatory Limitations: no limitations - History of Present Illness Initial comments: 44-year-old female presenting for right lower quadrant abdominal pain x 1 day with associated nonbilious nonbloody vomiting. States pain started at 2 AM last night and is sharp. Pain does not radiate. Patient has had 2 normal bowel movements today. States she has had this pain before but workup returned negative. Denies chest pain, shortness of breath, fever, chills, urinary symptoms. History of cholecystectomy, tubal ligation, and . She was previously on a blood thinner however was told to stop taking it as she has a cardiac catheterization coming up. - Related Data Home Medications Medication Instructions Recorded Confirmed Albuterol Inhaler [Ventolin Hfa 2 puff INHALATION RT-Q4H PRN 04/15/17 12/31/24 Inhaler] HYDROcodone/APAP 10-325MG [[place] 1 tab PO TID PRN 01/14/18 12/31/24 10-325] Loratadine [Claritin] 10 mg PO DAILY 03/26/23 12/31/24 levETIRAcetam [Keppra] 500 mg PO DAILY 08/29/23 12/31/24 Cyclobenzaprine [Flexeril] 10 mg PO HS 11/11/23 12/31/24 Ondansetron Odt [Zofran ODT] 4 mg PO TID PRN 04/06/24 12/31/24 Albuterol Nebulized [Ventolin 2.5 mg INHALATION RT-QID PRN 11/04/24 12/31/24 Nebulized] Apixaban [Eliquis] 5 mg PO DIRECTED 11/04/24 12/31/24 Budesonide/Formoterol Fumarate 2 puff INHALATION RT-DAILY 11/04/24 12/31/24 [Symbicort 160-4.5 Mcg Inhaler] Empagliflozin [Jardiance] 10 mg PO DAILY 11/04/24 12/31/24 Furosemide [Lasix] 40 mg PO DAILY 11/04/24 12/31/24 Metoprolol Tartrate [Lopressor] 50 mg PO DAILY 11/04/24 12/31/24 Pantoprazole [Protonix] 40 mg PO DAILY 12/21/24 12/31/24 Sodium Bicarbonate 325 mg PO DAILY 12/21/24 12/31/24 Naproxen [Naprosyn] 500 mg PO BID PRN 12/31/24 12/31/24 Previous Rx's Medication Instructions Recorded Cephalexin [Keflex] 500 mg PO Q6H 7 Days #28 cap 01/12/25 Allergies Allergy/AdvReac Type Severity Reaction Status Date / Time Penicillins Allergy Nausea & Verified 01/11/25 23:05 Vomiting, rash codeine AdvReac Nausea & Verified 01/11/25 23:05 Vomiting morphine AdvReac Nausea & Verified 01/11/25 23:05 Vomiting Sulfa (Sulfonamide AdvReac Nausea & Verified 01/11/25 23:05 Antibiotics) Vomiting, rash tramadol AdvReac Per Verified 01/11/25 23:05 patient, cannot take with Keppra Review of Systems ROS Statement: Those systems with pertinent positive or pertinent negative responses have been documented in the HPI. ROS Other: All systems not noted in ROS Statement are negative. Past Medical History Past Medical History: Asthma, Heart Failure, CVA/TIA, Diabetes Mellitus, GI Bleed, Pneumonia, Seizure Disorder Additional Past Medical History / Comment(s): NIDDM type II, grand mal seizure and stroke once in 2017, lower GI bleed, mild diverticular dx, PCOS, bronchitis, pneumonia, migraines, allergic rhinitis. Kidney stones, last seizure 10/29/24- still has small bruise on back from falling r/t seizure, currently has pleural effusion bilat History of Any Multi-Drug Resistant Organisms: MRSA, None Reported Date of last positivie culture/infection: 2011 MDRO Source:: Lungs Past Surgical History: Section, Cholecystectomy, Tubal Ligation Additional Past Surgical History / Comment(s): colonoscopies, R groin mole removed then resected d/t abnormal cells-bening, kidney stones surgically removed, bilat cataracts removed, glaucoma sx, bilat retainal sx for bleeding, rt thoracentesis bilat at [facility] Past Anesthesia/Blood Transfusion Reactions: No Reported Reaction Past Psychological History: Anxiety Smoking Status: Never smoker Past Alcohol Use History: None Reported Past Drug Use History: None Reported - Past Family History Father Family Medical History: Cancer Additional Family Medical History / Comment(s): COLON, MELANOMA ON HIS CHEST AND HE ALSO HAS BENIGN BRAIN TUMORS 2, diabetes, pancreatic cancer. FATHER IS alive. Mother Family Medical History: Cancer, Dialysis Additional Family Medical History / Comment(s): MELANOMA THAT METASTASIZED TO THE BRAIN- FROM AT AGE 49 YRS. Mother had an ME at age 34 with angioplasty at age 36 yrs and another ME, and history of diabetes. Patient has many aunts, uncles and nieces with diabetes on her mother's side. Brother(s) Family Medical History: Cancer Additional Family Medical History / Comment(s): Patient has one half-brother with kidney stones, full brother with no major medical problems. Patient has 1 sister with no major medical problems. Daughter(s) Additional Family Medical History / Comment(s): Patient has 2 daughters and her youngest daughter has history of seizure disorder. Patient has one son with no major medical problems. General Exam Limitations: no limitations General appearance: alert, in no apparent distress Head exam: Present: atraumatic, normocephalic, normal inspection Respiratory exam: Present: normal lung sounds bilaterally. Absent: respiratory distress, wheezes, rales, rhonchi, stridor Cardiovascular Exam: Present: regular rate, normal rhythm, normal heart sounds. Absent: systolic murmur, diastolic murmur, rubs, gallop, clicks GI/Abdominal exam: Present: soft, tenderness (mild RLQ tenderness ), normal bowel sounds. Absent: distended, guarding, rebound, rigid Back exam: Absent: CVA tenderness (R), CVA tenderness (L) Neurological exam: Present: alert, oriented X3 Psychiatric exam: Present: normal affect, normal mood Skin exam: Present: warm, dry, intact, normal color. Absent: rash Course Vital Signs 01/11/25 01/12/25 23:05 03:28 Temperature 98.1 F Pulse Rate 108 H 97 Respiratory 18 18 Rate Blood Pressure 159/108 134/99 O2 Sat by Pulse 96 100 Oximetry Medical Decision Making - Medical Decision Making Was pt. sent in by a medical professional or institution (, PA, ENTRY REP, urgent care, hospital, or [facility]...) When possible be specific @ -No Did you speak to anyone other than the patient for history (EMS, parent, family, police, friend...)? What history was obtained from this source @ -No Did you review nursing and triage notes (agree or disagree)? Why? @ -I reviewed and agree with nursing and triage notes Were old charts reviewed (outside hosp., previous admission, EMS record, old EKG, old radiological studies, urgent care reports/EKG's, [facility] records)? Report findings @ -No old charts were reviewed Differential Diagnosis (chest pain, altered mental status, abdominal pain women, abdominal pain men, vaginal bleeding, weakness, fever, dyspnea, syncope, headache, dizziness, GI bleed, back pain, seizure, CVA, palpatations, mental health, musculoskeletal)? @ -Differential Abdominal Pain Women: Appendicitis, Cholecystitis, diverticulosis, ischemic bowel, pancreatitis, hepatitis, UTI, gastroenteritis, AAA, incarcerated hernia, bowel obstruction, constipation, inflammatory bowel, hepatitis, peptic ulcer disease, splenic infarction, perforated viscus, vulvitis, ovarian torsion, PID, kidney stone, placenta abruption, this is not meant to be an all-inclusive list EKG interpreted by me (3pts min.). @ -None X-rays interpreted by me (1pt min.). @ -None done CT interpreted by me (1pt min.). @ -None done U/S interpreted by me (1pt. min.). @ -Ultrasound appendix reveals no appendix visualized, no free fluid or lymph nodes demonstrated What testing was considered but not performed or refused? (CT, X-rays, U/S, labs)? Why? @ -None What meds were considered but not given or refused? Why? @ -None Did you discuss the management of the patient with other professionals (professionals i.e. , PA, ENTRY REP, lab, RT, psych nurse, social work nurse, railroad hand, teacher, complaint evaluation officer, wrapper caser)? Give summary @ -No Was smoking cessation discussed for >3mins.? @ -No Was critical care preformed (if so, how long)? @ -No Were there social determinants of health that impacted care today? How? (Homelessness, low income, unemployed, alcoholism, drug addiction, transportation, low edu. Level, literacy, decrease access to med. care, snf, rehab)? @ -No Was there de-escalation of care discussed even if they declined (Discuss DNR or withdrawal of care, Hospice)? DNR status @ -No What co-morbidities impacted this encounter? (DM, HTN, Smoking, COPD, CAD, Cancer, CVA, ARF, Chemo, Hep., AIDS, mental health diagnosis, sleep apnea, morbid obesity)? @ -None Was patient admitted / discharged? Hospital course, mention meds given and route, prescriptions, significant lab abnormalities, going to OR and other pertinent info. @ -Discharge. 44-year-old female presenting for right lower quadrant abdominal pain x 1 day with associated nausea and vomiting. Patient is afebrile with no CVA tenderness. There is mild right lower quadrant tenderness to palpation. Provided with IV fluid bolus, Reglan, Toradol, and Dilaudid. Lab work remarkable for glucose 344, lactic 2.7, BUN 21, sodium 128 similar to previous, white blood cell count normal at 4. Patient was provided with 10 units subcutaneous insulin for hyperglycemia. No significant anion gap or ketonuria to suggest DKA. Urinalysis remarkable for 120 white blood cells, 25 red blood cells consistent with urinary tract infection. Ultrasound appendix reveals no a ppendix visualized, no free fluid or lymph nodes demonstrated. Upon reevaluation, patient reports significant improvement of symptoms. Patient is tolerating orals at this time. Discussed diagnosis of urinary tract infection. Will give dose of Rocephin here in the ER and discharge patient with outpatient prescription for Keflex. Appropriate return precautions and follow-up care discussed. Advised patient that she must follow-up with PCP regarding her blood glucose levels as they have been significantly high during ER visits. Patient is agreeable to plan. Case was discussed with my ED attending Dr. Vance. Undiagnosed new problem with uncertain prognosis? @ -No Drug Therapy requiring intensive monitoring for toxicity (Heparin, Nitro, Insulin, Cardizem)? @ -No Were any procedures done? @ -No Diagnosis/symptom? @ -Urinary tract infection, hyperglycemia Acute, or Chronic, or Acute on Chronic? @ -Acute Uncomplicated (without systemic symptoms) or Complicated (systemic symptoms)? @ -Complicated Side effects of treatment? @ -No Exacerbation, Progression, or Severe Exacerbation? @ -No Poses a threat to life or bodily function? How? (Chest pain, USA, ME, pneumonia, PE, COPD, DKA, ARF, appy, cholecystitis, CVA, Diverticulitis, Homicidal, Suicidal, threat to staff... and all critical care pts) @ -Not at this time - Lab Data Result diagrams: 01/12/25 00:05 01/12/25 00:05 Lab Results 01/12/25 01/12/25 01/12/25 Range/Units 00:05 00:05 00:05 WBC 4.77 (4.50-10.00) 10*3/uL RBC 5.59 H (4.10-5.20) 10*6/uL Hgb 13.3 (12.0-15.0) g/dL Hct 42.8 (37.2-46.3) % MCV 76.6 L (80.0-97.0) fL MCH 23.8 L (27.0-32.0) pg MCHC 31.1 L (32.0-37.0) g/dL Plt Count 242 (140-440) 10*3/uL MPV 9.4 L (9.5-12.2) fL Immature Gran % (Auto) 0.4 % Neutrophils % 70.9 % Lymphocytes % 15.1 % Monocytes % 9.2 % Eosinophils % 1.9 % Basophils % 2.5 % Immature Gran # 0.02 (0.00-0.04) 10*3/uL Neutrophils # 3.38 (1.80-7.70) 10*3/uL Lymphocytes # 0.72 L (0.90-5.00) 10*3/uL Monocytes # 0.44 (0.20-1.00) 10*3/uL Eosinophils # 0.09 (0.04-0.35) 10*3/uL Basophils # 0.12 H (0.00-0.10) 10*3/uL Sodium 128 L (137-145) mmol/L Potassium 4.9 (3.5-5.1) mmol/L Chloride 90 L (98-107) mmol/L Carbon Dioxide 31 H (22-30) mmol/L Anion Gap 7 mmol/L BUN 21 H (7-17) mg/dL Creatinine 0.66 (0.52-1.04) mg/dL Est GFR (CKD-EPI)AfAm >90 (>60 ml/min/1.73 sqM) Est GFR (CKD-EPI)NonAf >90 (>60 ml/min/1.73 sqM) Glucose 344 H (74-99) mg/dL POC Glucose (mg/dL) (70-110) mg/dL POC Glu Manager Architectural ID Plasma Lactic Acid Carlos 2.7 H* (0.7-2.0) mmol/L Calcium 9.8 (8.4-10.2) mg/dL Total Bilirubin 0.6 (0.2-1.3) mg/dL AST 27 (14-36) U/L ALT 31 (4-34) U/L Alkaline Phosphatase 194 H (38-126) U/L Total Protein 6.8 (6.3-8.2) g/dL Albumin 3.0 L (3.5-5.0) g/dL Lipase 121 (23-300) U/L Urine Color Urine Appearance (Clear) Urine pH (5.0-8.0) Ur Specific [place] (1.001-1.035) Urine Protein (Negative) Urine Glucose (UA) (Negative) Urine Ketones (Negative) Urine Blood (Negative) Urine Nitrite (Negative) Urine Bilirubin (Negative) Urine Urobilinogen (<2.0) mg/dL Ur Leukocyte Esterase (Negative) Urine RBC (0-5) /hpf Urine WBC (0-5) /hpf Urine WBC Clumps (None) /hpf Ur Squamous Epith Cells (0-4) /hpf Calcium Oxalate Crystal (None) /hpf Urine Bacteria (None) /hpf Hyaline Casts (0-2) /lpf Urine Mucus (None) /hpf Urine HCG, Qual (Not Detectd) 01/12/25 01/12/25 01/12/25 Range/Units 01:45 01:45 03:27 WBC (4.50-10.00) 10*3/uL RBC (4.10-5.20) 10*6/uL Hgb (12.0-15.0) g/dL Hct (37.2-46.3) % MCV (80.0-97.0) fL MCH (27.0-32.0) pg MCHC (32.0-37.0) g/dL Plt Count (140-440) 10*3/uL MPV (9.5-12.2) fL Immature Gran % (Auto) % Neutrophils % % Lymphocytes % % Monocytes % % Eosinophils % % Basophils % % Immature Gran # (0.00-0.04) 10*3/uL Neutrophils # (1.80-7.70) 10*3/uL Lymphocytes # (0.90-5.00) 10*3/uL Monocytes # (0.20-1.00) 10*3/uL Eosinophils # (0.04-0.35) 10*3/uL Basophils # (0.00-0.10) 10*3/uL Sodium (137-145) mmol/L Potassium (3.5-5.1) mmol/L Chloride (98-107) mmol/L Carbon Dioxide (22-30) mmol/L Anion Gap mmol/L BUN (7-17) mg/dL Creatinine (0.52-1.04) mg/dL Est GFR (CKD-EPI)AfAm (>60 ml/min/1.73 sqM) Est GFR (CKD-EPI)NonAf (>60 ml/min/1.73 sqM) Glucose (74-99) mg/dL POC Glucose (mg/dL) 288 H (70-110) mg/dL POC Glu Manager Architectural ID [place] Plasma Lactic Acid Carlos (0.7-2.0) mmol/L Calcium (8.4-10.2) mg/dL Total Bilirubin (0.2-1.3) mg/dL AST (14-36) U/L ALT (4-34) U/L Alkaline Phosphatase (38-126) U/L Total Protein (6.3-8.2) g/dL Albumin (3.5-5.0) g/dL Lipase (23-300) U/L Urine Color Yellow Urine Appearance Cloudy H (Clear) Urine pH 7.5 (5.0-8.0) Ur Specific [place] 1.023 (1.001-1.035) Urine Protein 3+ H (Negative) Urine Glucose (UA) 4+ H (Negative) Urine Ketones Negative (Negative) Urine Blood Small H (Negative) Urine Nitrite Negative (Negative) Urine Bilirubin Negative (Negative) Urine Urobilinogen <2.0 (<2.0) mg/dL Ur Leukocyte Esterase Moderate H (Negative) Urine RBC 25 H (0-5) /hpf Urine WBC 120 H (0-5) /hpf Urine WBC Clumps Rare H (None) /hpf Ur Squamous Epith Cells 5 H (0-4) /hpf Calcium Oxalate Crystal Occasional H (None) /hpf Urine Bacteria Rare H (None) /hpf Hyaline Casts 22 H (0-2) /lpf Urine Mucus Rare H (None) /hpf Urine HCG, Qual Not Detected (Not Detectd) Disposition Clinical Impression: Urinary tract infection, Hyperglycemia Disposition: HOME SELF-CARE Condition: Stable Instructions (If sedation given, give patient instructions): Urinary Tract Infection in Women (ED) Additional Instructions: Take Keflex 4 times daily for 7 days. Please follow-up with your PCP regarding blood sugar as it has been consistently high during your ER visits. Please return to the Emergency Department if symptoms worsen or any other concerns. Prescriptions: Cephalexin [Keflex] 500 mg PO Q6H 7 Days #28 cap Is patient prescribed a controlled substance at d/c from ED?: No Referrals: None,Stated [Primary Care Provider] - 1-2 days Time of Disposition: 03:31
[2025-01-12 00:11] LABS: Basophils # (A) 0.12 10*3/uL (0.00-0.10); Basophils % (A) 2.5 %; Eosinophils # (A) 0.09 10*3/uL (0.04-0.35); Eosinophils % (A) 1.9 %; HCT 42.8 % (37.2-46.3); HGB 13.3 g/dL (12.0-15.0); Lymphocytes # (A) 0.72 10*3/uL (0.90-5.00); Lymphocytes % (A) 15.1 %; MCH 23.8 pg (27.0-32.0); MCHC 31.1 g/dL (32.0-37.0); MCV 76.6 fL (80.0-97.0); Mean Platelet Volume 9.4 fL (9.5-12.2); Monocytes # (A) 0.44 10*3/uL (0.20-1.00); Monocytes % (A) 9.2 %; Neutrophils # (A) 3.38 10*3/uL (1.80-7.70); Neutrophils % (A) 70.9 %; Platelet Count 242 10*3/uL (140-440); RBC 5.59 10*6/uL (4.10-5.20); WBC 4.77 10*3/uL (4.50-10.00)
[2025-01-12] MEDS: ONDANSETRON 4 MG/2 ML VIAL IVP STA (00:11)
[2025-01-12] MEDS: HYDROmorphone 2 MG/ML 1 ML SYRINGE IVP STA (00:11)
[2025-01-12] MEDS: SODIUM CHLORIDE 0.9% 1,000 ML IV STA (00:14)
[2025-01-12 01:00] LABS: ALT 31 U/L (4-34); AST 27 U/L (14-36); African American GFR (CKD) >90 (>60 ml/min/1.73 sqM); Alkaline Phosphatase 194 U/L (38-126); Anion Gap 7 mmol/L; Blood Urea Nitrogen 21 mg/dL (7-17); Calcium 9.8 mg/dL (8.4-10.2); Carbon Dioxide 31 mmol/L (22-30); Chloride 90 mmol/L (98-107); Glucose 344 mg/dL (74-99); Lipase 121 U/L (23-300); Non-African American GFR(CKD) >90 (>60 ml/min/1.73 sqM); Potassium 4.9 mmol/L (3.5-5.1); Sodium 128 mmol/L (137-145); Total Bilirubin 0.6 mg/dL (0.2-1.3); Total Protein 6.8 g/dL (6.3-8.2)
--- NOTE | 2025-01-12 01:35 | US ---
EXAM: US Abdomen Limited, Appendix CLINICAL HISTORY: ITS.REASON US Reason: RLQ abd pain Female, 44 years old with history of RLQ abd pain; patient states RLQ pain since September. Now nausea/ vomiting TECHNIQUE: Multiple sonographic images of the right lower quadrant were obtained with graded compression with grayscale and color Doppler imaging. 14 images COMPARISON: CT 12/31/24 IMPRESSION: Appendix is not visualized. No free fluid or lymph node demonstrated.
[2025-01-12] MEDS: INSULIN REGULAR 100 UNIT/ML VIAL (IM/SQ) SQ ONE (01:37)
[2025-01-12 02:40] LABS: Appearance,Urine Cloudy (Clear); Bacteria,Urine Rare /hpf; Bilirubin,Urine Negative (Negative); Blood,Urine Small (Negative); Calcium Oxalate Crystals,Urine Occasional /hpf; Color,Urine Yellow; Glucose,Urine (UA) 4+ (Negative); Hyaline Casts,Urine 22 /lpf (0-2); Ketones,Urine Negative (Negative); Leukocyte Esterase,Urine Moderate (Negative); Mucus,Urine Rare /hpf; Nitrite,Urine Negative (Negative); PH, Urine 7.5 (5.0-8.0); Protein,Urine 3+ (Negative); RBC,Urine 25 /hpf (0-5); Specific Gravity,Urine 1.023 (1.001-1.035); Squamous Epithelial Cell,Urine 5 /hpf (0-4); Urobilinogen,Urine <2.0 mg/dL (<2.0); WBC,Urine 120 /hpf (0-5)
[2025-01-12 03:29] LABS: Glucose,Whole Blood 288 mg/dL (70-110)
[2025-01-12 03:31] VITALS: BP 134/99; PULSE 97
[2025-01-12] MEDS: cefTRIAXone IN SWFI 1,000 MG/10 ML SYRINGE IVP STA (03:40)
== END 2025-01-12 03:46 | disposition home or self-care (01) ==
LOC: EC 23:03
DX: N39.0 Urinary tract infection, site not specified (principal); E11.65 Type 2 diabetes mellitus with hyperglycemia; Z79.84 Long term (current) use of oral hypoglycemic drugs; Z79.4 Long term (current) use of insulin; Z88.0 Allergy status to penicillin; Z88.1 Allergy status to other antibiotic agents; Z88.2 Allergy status to sulfonamides; Z88.5 Allergy status to narcotic agent; Z86.73 Personal history of transient ischemic attack (TIA), and cerebral infarction without residual deficits
CPT/HCPCS: 36415; 80053; 83605; 83690; 85025; 81001; 81025; 76705; 99284; 96374; 96375 ×2; 96361 ×3; J1171; J2405; J0696

== ENCOUNTER 2025-01-12 22:03 | Emergency (ER) | payer OTHER ==
[2025-01-12 22:42] LABS: Basophils # (A) 0.11 10*3/uL (0.00-0.10); Basophils % (A) 1.8 %; Eosinophils # (A) 0.13 10*3/uL (0.04-0.35); Eosinophils % (A) 2.1 %; HGB 12.4 g/dL (12.0-15.0); Lymphocytes # (A) 0.81 10*3/uL (0.90-5.00); Lymphocytes % (A) 13.3 %; MCH 23.8 pg (27.0-32.0); MCV 76.8 fL (80.0-97.0); Mean Platelet Volume 9.4 fL (9.5-12.2); Monocytes # (A) 0.56 10*3/uL (0.20-1.00); Monocytes % (A) 9.2 %; Neutrophils # (A) 4.46 10*3/uL (1.80-7.70); Neutrophils % (A) 73.4 %; Platelet Count 232 10*3/uL (140-440); RBC 5.21 10*6/uL (4.10-5.20); RDW 16.2 % (11.5-14.5); WBC 6.08 10*3/uL (4.50-10.00)
--- NOTE | 2025-01-12 22:47 | ED ---
Abdominal Pain HPI - General Chief Complaint: Abdominal Pain Stated Complaint: abd pain Time Seen by Provider: 01/12/25 22:08 Source: patient, EMS Mode of arrival: EMS - History of Present Illness Initial Comments: This patient is a 44-year-old woman with history of diabetes who presents with complaint of right-sided abdominal pain. Patient states she had onset of abdominal pain yesterday, was seen here and told that she had urinary tract infection. She received analgesic, dose of antibiotic, and went home and states that the pain recurred today. She does take hydrocodone for chronic pains. No fever or chills. She does have nausea but states she has had frequently. No change in urination. She denies symptoms of urinary tract infection including no dysuria frequency hematuria or urgency. MD Complaint: abdominal pain Onset/Timin -: days(s) Location: RUQ, RLQ Radiation: none Migration to: no migration Severity: severe Quality: cramping, stabbing Consistency: colicky Improves With: nothing Worsens With: nothing Associated Symptoms: nausea - Related Data Home Medications Medication Instructions Recorded Confirmed Albuterol Inhaler [Ventolin Hfa 2 puff INHALATION RT-Q4H PRN 04/15/17 01/23/25 Inhaler] HYDROcodone/APAP 10-325MG [Ogema 1 tab PO TID PRN 01/14/18 01/23/25 10-325] Loratadine [Claritin] 10 mg PO DAILY 03/26/23 01/23/25 levETIRAcetam [Keppra] 500 mg PO DAILY 08/29/23 01/23/25 Cyclobenzaprine [Flexeril] 20 mg PO HS 11/11/23 01/23/25 Ondansetron Odt [Zofran ODT] 4 mg PO TID PRN 04/06/24 01/23/25 Albuterol Nebulized [Ventolin 2.5 mg INHALATION RT-QID PRN 11/04/24 01/23/25 Nebulized] Apixaban [Eliquis] 5 mg PO BID 11/04/24 01/23/25 Budesonide/Formoterol Fumarate 2 puff INHALATION RT-DAILY 11/04/24 01/23/25 [Symbicort 160-4.5 Mcg Inhaler] Empagliflozin [Jardiance] 10 mg PO DAILY 11/04/24 01/23/25 Furosemide [Lasix] 40 mg PO DAILY 11/04/24 01/23/25 Metoprolol Tartrate [Lopressor] 50 mg PO DAILY 11/04/24 01/23/25 Pantoprazole [Protonix] 40 mg PO DAILY 12/21/24 01/23/25 Sodium Bicarbonate 325 mg PO DAILY 12/21/24 01/23/25 Naproxen [Naprosyn] 500 mg PO BID PRN 12/31/24 01/23/25 Azithromycin [Zithromax Z Pack] See Taper PO DAILY 01/23/25 01/23/25 Chlorhexidine Gluconate [Peridex] 15 ml PO BID 01/23/25 01/23/25 Previous Rx's Medication Instructions Recorded Cephalexin [Keflex] 500 mg PO Q6H 7 Days #28 cap 01/12/25 Allergies Allergy/AdvReac Type Severity Reaction Status Date / Time Penicillins Allergy Nausea & Verified 01/23/25 10:48 Vomiting, rash codeine AdvReac Nausea & Verified 01/23/25 10:48 Vomiting morphine AdvReac Nausea & Verified 01/23/25 10:48 Vomiting Sulfa (Sulfonamide AdvReac Nausea & Verified 01/23/25 10:48 Antibiotics) Vomiting, rash tramadol AdvReac Per Verified 01/23/25 10:48 patient, cannot take with Keppra Review of Systems ROS Statement: Those systems with pertinent positive or pertinent negative responses have been documented in the HPI. ROS Other: All systems not noted in ROS Statement are negative. Constitutional: Denies: fever, chills, weakness Respiratory: Denies: cough, dyspnea Cardiovascular: Reports: edema. Denies: chest pain, palpitations, orthopnea Gastrointestinal: Reports: abdominal pain, nausea, vomiting. Denies: diarrhea, constipation, melena, hematochezia Genitourinary: Denies: dysuria, hematuria Musculoskeletal: Denies: back pain Skin: Denies: rash Neurological: Denies: headache, weakness, numbness Past Medical History Past Medical History: Asthma, Heart Failure, CVA/TIA, Diabetes Mellitus, GI Bleed, Pneumonia, Seizure Disorder Additional Past Medical History / Comment(s): NIDDM type II, grand mal seizure and stroke once in 2017, lower GI bleed, mild diverticular dx, PCOS, bronchitis, pneumonia, migraines, allergic rhinitis. Kidney stones, last seizure 10/29/24- still has small bruise on back from falling r/t seizure, currently has pleural effusion bilat History of Any Multi-Drug Resistant Organisms: MRSA, None Reported Date of last positivie culture/infection: 2011 MDRO Source:: Lungs Past Surgical History: Section, Cholecystectomy, Tubal Ligation Additional Past Surgical History / Comment(s): colonoscopies, R groin mole removed then resected d/t abnormal cells-bening, kidney stones surgically removed, bilat cataracts removed, glaucoma sx, bilat retainal sx for bleeding, rt thoracentesis bilat at [facility] Past Anesthesia/Blood Transfusion Reactions: No Reported Reaction Past Psychological History: Anxiety Smoking Status: Never smoker Past Alcohol Use History: None Reported Past Drug Use History: None Reported - Past Family History Father Family Medical History: Cancer Additional Family Medical History / Comment(s): COLON, MELANOMA ON HIS CHEST AND HE ALSO HAS BENIGN BRAIN TUMORS 2, diabetes, pancreatic cancer. FATHER IS alive. Mother Family Medical History: Cancer, Dialysis Additional Family Medical History / Comment(s): MELANOMA THAT METASTASIZED TO THE BRAIN- FROM AT AGE 49 YRS. Mother had an SC at age 34 with angioplasty at age 36 yrs and another SC, and history of diabetes. Patient has many aunts, uncles and nieces with diabetes on her mother's side. Brother(s) Family Medical History: Cancer Additional Family Medical History / Comment(s): Patient has one half-brother with kidney stones, full brother with no major medical problems. Patient has 1 sister with no major medical problems. Daughter(s) Additional Family Medical History / Comment(s): Patient has 2 daughters and her youngest daughter has history of seizure disorder. Patient has one son with no major medical problems. General Exam General appearance: alert, in no apparent distress Head exam: Present: atraumatic, normocephalic Eye exam: Present: normal appearance. Absent: scleral icterus, conjunctival injection Neck exam: Present: normal inspection Respiratory exam: Present: normal lung sounds bilaterally. Absent: respiratory distress, wheezes, rales, rhonchi, stridor, accessory muscle use Cardiovascular Exam: Present: regular rate, normal rhythm, normal heart sounds. Absent: systolic murmur, diastolic murmur, rubs, gallop GI/Abdominal exam: Present: soft, tenderness. Absent: distended, guarding, rebound, rigid, mass Extremities exam: Present: normal inspection, normal capillary refill. Absent: pedal edema, calf tenderness Back exam: Present: normal inspection. Absent: CVA tenderness (R), CVA tenderness (L) Neurological exam: Present: alert Skin exam: Present: warm, dry, intact, normal color. Absent: rash Course Vital Signs 01/12/25 01/12/25 01/13/25 22:04 23:06 02:21 Temperature 98.0 F 97.9 F Pulse Rate 111 H 105 H 107 H Respiratory 22 18 18 Rate Blood Pressure 168/115 158/115 145/102 O2 Sat by Pulse 93 L 92 L 100 Oximetry 01/13/25 03:54 Temperature 98.1 F Pulse Rate 94 Respiratory 18 Rate Blood Pressure 147/100 O2 Sat by Pulse 97 Oximetry Medical Decision Making - Medical Decision Making The patient had x-ray of the abdomen which I interpreted as negative for free air, obstruction, or foreign body Was pt. sent in by a medical professional or institution (, PA, PUBLIC HEALTH AIDES TEACHER, urgent care, hospital, or care home...) When possible be specific @ -[No] Did you speak to anyone other than the patient for history (EMS, parent, family, police, friend...)? What history was obtained from this source @ -[No] Did you review nursing and triage notes (agree or disagree)? Why? @ -[I reviewed and agree with nursing and triage notes] Were old charts reviewed (outside hosp., previous admission, EMS record, old EKG, old radiological studies, urgent care reports/EKG's, care home records)? Report findings @ -[No old charts were reviewed] Differential Diagnosis (chest pain, altered mental status, abdominal pain women, abdominal pain men, vaginal bleeding, weakness, fever, dyspnea, syncope, headache, dizziness, GI bleed, back pain, seizure, CVA, palpatations, mental health, musculoskeletal)? @ -[Differential Abdominal Pain Women: Appendicitis, Cholecystitis, diverticulosis, ischemic bowel, pancreatitis, hepatitis, UTI, gastroenteritis, AAA, incarcerated hernia, bowel obstruction, constipation, inflammatory bowel, hepatitis, peptic ulcer disease, splenic infarction, perforated viscus, vulvitis, ovarian torsion, PID, kidney stone, placenta abruption, this is not meant to be an all-inclusive list EKG interpreted by me (3pts min.). @ -[As above] X-rays interpreted by me (1pt min.). @ -[I interpreted as above CT interpreted by me (1pt min.). @ -[None done] U/S interpreted by me (1pt. min.). @ -[None done] What testing was considered but not performed or refused? (CT, X-rays, U/S, labs)? Why? @ -[None] What meds were considered but not given or refused? Why? @ -[None] Did you discuss the management of the patient with other professionals (professionals i.e. , PA, PUBLIC HEALTH AIDES TEACHER, lab, RT, psych nurse, foster care social worker, outfitter cabin, teacher, uniform patrol police officer, human services case manager)? Give summary @ -[No] Was smoking cessation discussed for >3mins.? @ -[No] Was critical care preformed (if so, how long)? @ -[No] Were there social determinants of health that impacted care today? How? (Homelessness, low income, unemployed, alcoholism, drug addiction, t ransportation, low edu. Level, literacy, decrease access to med. care, [place] [facility], rehab)? @ -[No] Was there de-escalation of care discussed even if they declined (Discuss DNR or withdrawal of care, Hospice)? DNR status @ -[No] What co-morbidities impacted this encounter? (DM, HTN, Smoking, COPD, CAD, C ancer, CVA, ARF, Chemo, Hep., AIDS, mental health diagnosis, sleep apnea, morbid obesity)? @ -[Diabetes, CHF, COPD Was patient admitted / discharged? Hospital course, mention meds given and route, prescriptions, significant lab abnormalities, going to OR and other pertinent info. @ -[Patient is 44-year-old woman here with abdominal pain and urinary tract infection. Workup does not reveal acute surgical cause of pain. At this point patient feeling better and will take course of antibiotics for urinary tract infection and follow-up. Discussed further care as well as return parameters. Undiagnosed new problem with uncertain prognosis? @ -[No] Drug Therapy requiring intensive monitoring for toxicity (Heparin, Nitro, Insulin, Cardizem)? @ -[No] Were any procedures done? @ -[No] Diagnosis/symptom? @ -[Acute abdominal pain Urinary tract infection Acute, or Chronic, or Acute on Chronic? @ -[Acute Uncomplicated (without systemic symptoms) or Complicated (systemic symptoms)? @ -[Uncomplicated Side effects of treatment? @ -[No] Exacerbation, Progression, or Severe Exacerbation? @ -[No] Poses a threat to life or bodily function? How? (Chest pain, USA, SC, pneumonia, PE, COPD, DKA, ARF, appy, cholecystitis, CVA, Diverticulitis, Homicidal, Suicidal, threat to staff... and all critical care pts) @ -[No] All treatments are based on ideal body weight as in ED triage - Lab Data Result diagrams: 01/12/25 22:27 01/12/25 22:27 Lab Results 01/12/25 01/12/25 01/12/25 Range/Units 22:27 22:27 22:27 WBC 6.08 (4.50-10.00) 10*3/uL RBC 5.21 H (4.10-5.20) 10*6/uL Hgb 12.4 (12.0-15.0) g/dL Hct 40.0 (37.2-46.3) % MCV 76.8 L (80.0-97.0) fL MCH 23.8 L (27.0-32.0) pg MCHC 31.0 L (32.0-37.0) g/dL Plt Count 232 (140-440) 10*3/uL MPV 9.4 L (9.5-12.2) fL Immature Gran % (Auto) 0.2 % Neutrophils % 73.4 % Lymphocytes % 13.3 % Monocytes % 9.2 % Eosinophils % 2.1 % Basophils % 1.8 % Immature Gran # 0.01 (0.00-0.04) 10*3/uL Neutrophils # 4.46 (1.80-7.70) 10*3/uL Lymphocytes # 0.81 L (0.90-5.00) 10*3/uL Monocytes # 0.56 (0.20-1.00) 10*3/uL Eosinophils # 0.13 (0.04-0.35) 10*3/uL Basophils # 0.11 H (0.00-0.10) 10*3/uL Sodium 129 L (137-145) mmol/L Potassium 4.0 (3.5-5.1) mmol/L Chloride 94 L (98-107) mmol/L Carbon Dioxide 26 (22-30) mmol/L Anion Gap 9 mmol/L BUN 20 H (7-17) mg/dL Creatinine 0.63 (0.52-1.04) mg/dL Est GFR (CKD-EPI)AfAm >90 (>60 ml/min/1.73 sqM) Est GFR (CKD-EPI)NonAf >90 (>60 ml/min/1.73 sqM) Glucose 257 H (74-99) mg/dL Plasma Lactic Acid Carlos 1.5 (0.7-2.0) mmol/L Calcium 9.2 (8.4-10.2) mg/dL Total Bilirubin 0.5 (0.2-1.3) mg/dL AST 27 (14-36) U/L ALT 28 (4-34) U/L Alkaline Phosphatase 175 H (38-126) U/L C-Reactive Protein 0.9 (<1.0) mg/dL Total Protein 6.4 (6.3-8.2) g/dL Albumin 2.8 L (3.5-5.0) g/dL Amylase 32 (30-110) U/L Lipase 109 (23-300) U/L Urine Color Urine Appearance (Clear) Urine pH (5.0-8.0) Ur Specific [place] (1.001-1.035) Urine Protein (Negative) Urine Glucose (UA) (Negative) Urine Ketones (Negative) Urine Blood (Negative) Urine Nitrite (Negative) Urine Bilirubin (Negative) Urine Urobilinogen (<2.0) mg/dL Ur Leukocyte Esterase (Negative) Urine RBC (0-5) /hpf Urine WBC (0-5) /hpf Ur Squamous Epith Cells (0-4) /hpf Hyaline Casts (0-2) /lpf Urine Mucus (None) /hpf Urine HCG, Qual (Not Detectd) 01/13/25 01/13/25 Range/Units 00:39 00:39 WBC (4.50-10.00) 10*3/uL RBC (4.10-5.20) 10*6/uL Hgb (12.0-15.0) g/dL Hct (37.2-46.3) % MCV (80.0-97.0) fL MCH (27.0-32.0) pg MCHC (32.0-37.0) g/dL Plt Count (140-440) 10*3/uL MPV (9.5-12.2) fL Immature Gran % (Auto) % Neutrophils % % Lymphocytes % % Monocytes % % Eosinophils % % Basophils % % Immature Gran # (0.00-0.04) 10*3/uL Neutrophils # (1.80-7.70) 10*3/uL Lymphocytes # (0.90-5.00) 10*3/uL Monocytes # (0.20-1.00) 10*3/uL Eosinophils # (0.04-0.35) 10*3/uL Basophils # (0.00-0.10) 10*3/uL Sodium (137-145) mmol/L Potassium (3.5-5.1) mmol/L Chloride (98-107) mmol/L Carbon Dioxide (22-30) mmol/L Anion Gap mmol/L BUN (7-17) mg/dL Creatinine (0.52-1.04) mg/dL Est GFR (CKD-EPI)AfAm (>60 ml/min/1.73 sqM) Est GFR (CKD-EPI)NonAf (>60 ml/min/1.73 sqM) Glucose (74-99) mg/dL Plasma Lactic Acid Carlos (0.7-2.0) mmol/L Calcium (8.4-10.2) mg/dL Total Bilirubin (0.2-1.3) mg/dL AST (14-36) U/L ALT (4-34) U/L Alkaline Phosphatase (38-126) U/L C-Reactive Protein (<1.0) mg/dL Total Protein (6.3-8.2) g/dL Albumin (3.5-5.0) g/dL Amylase (30-110) U/L Lipase (23-300) U/L Urine Color Light Yellow Urine Appearance Clear (Clear) Urine pH 7.0 (5.0-8.0) Ur Specific [place] 1.016 (1.001-1.035) Urine Protein 3+ H (Negative) Urine Glucose (UA) 3+ H (Negative) Urine Ketones Trace H (Negative) Urine Blood Small H (Negative) Urine Nitrite Negative (Negative) Urine Bilirubin Negative (Negative) Urine Urobilinogen <2.0 (<2.0) mg/dL Ur Leukocyte Esterase Small H (Negative) Urine RBC 13 H (0-5) /hpf Urine WBC 57 H (0-5) /hpf Ur Squamous Epith Cells 3 (0-4) /hpf Hyaline Casts 32 H (0-2) /lpf Urine Mucus Rare H (None) /hpf Urine HCG, Qual Not Detected (Not Detectd) Disposition Clinical Impression: Abdominal pain, UTI (urinary tract infection) Disposition: HOME SELF-CARE Condition: Good Instructions (If sedation given, give patient instructions): Urinary Tract Infection in Women (ED), Abdominal Pain (ED) Is patient prescribed a controlled substance at d/c from ED?: No Referrals: None,Stated [Primary Care Provider] - 1-2 days
--- NOTE | 2025-01-12 22:48 | XR ---
EXAMINATION TYPE: XR KUB DATE OF EXAM: 01/12/2025 COMPARISON: Multiple CT abdomen and pelvis with most recent 12/31/2024 HISTORY: Abdominal pain TECHNIQUE: Single upright KUB image of the abdomen is obtained FINDINGS: Small bowel demonstrates no evidence for dilatation or air fluid levels. Gas and fecal material is seen in non-distended colon. No convincing evidence for pneumoperitoneum. No unusual calcifications. The lung bases are clear. Cardiomegaly. The osseous structures are intact. IMPRESSION: Overall nonobstructive bowel gas pattern. [facility], , 01/12/2025 10:46 PM
[2025-01-12] MEDS: HYDROmorphone 0.5 MG/0.5 ML SYRINGE IVP STA (22:57)
[2025-01-12] MEDS: SODIUM CHLORIDE 0.9% 500 ML 500 ML IV STA (22:59)
[2025-01-12] MEDS: ONDANSETRON 4 MG/2 ML VIAL IVP STA (22:59)
[2025-01-12 23:08] VITALS: RESP 18
[2025-01-12 23:47] LABS: ALT 28 U/L (4-34); AST 27 U/L (14-36); African American GFR (CKD) >90 (>60 ml/min/1.73 sqM); Albumin 2.8 g/dL (3.5-5.0); Alkaline Phosphatase 175 U/L (38-126); Amylase 32 U/L (30-110); Anion Gap 9 mmol/L; Blood Urea Nitrogen 20 mg/dL (7-17); C Reactive Protein 0.9 mg/dL (<1.0); Calcium 9.2 mg/dL (8.4-10.2); Carbon Dioxide 26 mmol/L (22-30); Chloride 94 mmol/L (98-107); Glucose 257 mg/dL (74-99); Lipase 109 U/L (23-300); Non-African American GFR(CKD) >90 (>60 ml/min/1.73 sqM); Sodium 129 mmol/L (137-145); Total Bilirubin 0.5 mg/dL (0.2-1.3); Total Protein 6.4 g/dL (6.3-8.2)
[2025-01-13 01:04] LABS: Appearance,Urine Clear (Clear); Bilirubin,Urine Negative (Negative); Blood,Urine Small (Negative); Color,Urine Light Yellow; Glucose,Urine (UA) 3+ (Negative); Hyaline Casts,Urine 32 /lpf (0-2); Ketones,Urine Trace (Negative); Leukocyte Esterase,Urine Small (Negative); Mucus,Urine Rare /hpf; Nitrite,Urine Negative (Negative); Protein,Urine 3+ (Negative); RBC,Urine 13 /hpf (0-5); Specific Gravity,Urine 1.016 (1.001-1.035); Squamous Epithelial Cell,Urine 3 /hpf (0-4); Urobilinogen,Urine <2.0 mg/dL (<2.0); WBC,Urine 57 /hpf (0-5)
[2025-01-13 03:55] VITALS: BP 147/100; PULSE 94; TEMP 98.1
[2025-01-13] MEDS: HYDROmorphone 0.5 MG/0.5 ML SYRINGE IVP STA (03:55)
== END 2025-01-13 04:05 | disposition home or self-care (01) ==
LOC: EC 22:03
DX: N39.0 Urinary tract infection, site not specified (principal); R10.11 Right upper quadrant pain; R10.31 Right lower quadrant pain; J44.9 Chronic obstructive pulmonary disease, unspecified; I50.9 Heart failure, unspecified; E11.9 Type 2 diabetes mellitus without complications; Z88.0 Allergy status to penicillin; Z88.1 Allergy status to other antibiotic agents; Z88.2 Allergy status to sulfonamides; Z88.5 Allergy status to narcotic agent
CPT/HCPCS: 36415; 80053; 82150; 83605; 83690; 85025; 86140; 81001; 81025; 74018; 99285; 96375; 96365; 96376; J2405; J0696; J1171 ×2

== ENCOUNTER 2025-01-23 05:06 | Inpatient (IN) | payer OTHER ==
--- NOTE | 2025-01-23 06:09 | ED ---
SOB HPI - General Chief Complaint: Shortness of Breath Stated Complaint: Difficulty Breathing Time Seen by Provider: 01/23/25 05:42 Source: patient Mode of arrival: wheelchair Limitations: no limitations - History of Present Illness Initial Comments: Patient is a 44-year-old woman with history of congestive heart failure who comes to have evaluation for worsening shortness of breath. The patient states that she had awakened approximately an hour prior feeling that she was short of breath. She states she this feels similar to previous congestive heart failure flareups. She also has had increasing edema of her legs over the past couple of days. Patient has not noted fever or chills. She had not been having cough prior to onset. No change in urination or bowel movements. MD Complaint: shortness of breath Onset/Timin -: hour(s) Severity scale (1-10): 0 Consistency: constant Improves With: nothing Known History Of: congestive heart failure - Related Data Home Medications Medication Instructions Recorded Confirmed Albuterol Inhaler [Ventolin Hfa 2 puff INHALATION RT-Q4H PRN 04/15/17 01/23/25 Inhaler] HYDROcodone/APAP 10-325MG [[place] 1 tab PO TID PRN 01/14/18 01/23/25 10-325] Loratadine [Claritin] 10 mg PO DAILY 03/26/23 01/23/25 levETIRAcetam [Keppra] 500 mg PO DAILY 08/29/23 01/23/25 Cyclobenzaprine [Flexeril] 20 mg PO HS 11/11/23 01/23/25 Ondansetron Odt [Zofran ODT] 4 mg PO TID PRN 04/06/24 01/23/25 Albuterol Nebulized [Ventolin 2.5 mg INHALATION RT-QID PRN 11/04/24 01/23/25 Nebulized] Apixaban [Eliquis] 5 mg PO BID 11/04/24 01/23/25 Budesonide/Formoterol Fumarate 2 puff INHALATION RT-DAILY 11/04/24 01/23/25 [Symbicort 160-4.5 Mcg Inhaler] Metoprolol Tartrate [Lopressor] 50 mg PO DAILY 11/04/24 01/23/25 Pantoprazole [Protonix] 40 mg PO DAILY 12/21/24 01/23/25 Sodium Bicarbonate 325 mg PO DAILY 12/21/24 01/23/25 Naproxen [Naprosyn] 500 mg PO BID PRN 12/31/24 01/23/25 Azithromycin [Zithromax Z Pack] See Taper PO DAILY 01/23/25 01/23/25 Chlorhexidine Gluconate [Peridex] 15 ml PO BID 01/23/25 01/23/25 Previous Rx's Medication Instructions Recorded Cephalexin [Keflex] 500 mg PO Q6H 7 Days #28 cap 01/12/25 Aspirin 81 mg PO DAILY #30 tab 01/29/25 Atorvastatin [Lipitor] 40 mg PO DAILY #30 tab 01/29/25 Bumetanide [BUMEX] 1 mg PO DAILY #30 tab 01/29/25 Dapagliflozin Propanediol [Farxiga] 10 mg PO DAILY #30 tab 01/29/25 Insulin Glargine (Lantus) [Lantus 30 unit SQ DAILY@0700 30 Days each 01/29/25 Vial] Sacubitril/Valsartan [Entresto 24 1 each PO BID #60 tab 01/29/25 mg-26 mg Tablet] Spironolactone [Aldactone] 25 mg PO DAILY #30 tab 01/29/25 Allergies Allergy/AdvReac Type Severity Reaction Status Date / Time Penicillins Allergy Nausea & Verified 01/23/25 10:48 Vomiting, rash codeine AdvReac Nausea & Verified 01/23/25 10:48 Vomiting morphine AdvReac Nausea & Verified 01/23/25 10:48 Vomiting Sulfa (Sulfonamide AdvReac Nausea & Verified 01/23/25 10:48 Antibiotics) Vomiting, rash tramadol AdvReac Per Verified 01/23/25 10:48 patient, cannot take with Keppra Review of Systems ROS Statement: Those systems with pertinent positive or pertinent negative responses have been documented in the HPI. ROS Other: All systems not noted in ROS Statement are negative. Constitutional: Denies: fever, chills, weakness Respiratory: Reports: dyspnea. Denies: wheezes, hemoptysis Cardiovascular: Reports: orthopnea, edema. Denies: chest pain, palpitations, syncope Gastrointestinal: Denies: abdominal pain, nausea, vomiting, diarrhea Genitourinary: Denies: dysuria, hematuria Musculoskeletal: Denies: back pain Skin: Denies: rash Neurological: Denies: headache, weakness, numbness Past Medical History Past Medical History: Asthma, Heart Failure, CVA/TIA, Diabetes Mellitus, GI Bleed, Pneumonia, Seizure Disorder Additional Past Medical History / Comment(s): NIDDM type II, grand mal seizure and stroke once in 2017, lower GI bleed, mild diverticular dx, PCOS, bronchitis, pneumonia, migraines, allergic rhinitis. Kidney stones, last seizure 10/29/24- still has small bruise on back from falling r/t seizure, currently has pleural effusion bilat History of Any Multi-Drug Resistant Organisms: MRSA, None Reported Date of last positivie culture/infection: 2011 MDRO Source:: Lungs Past Surgical History: Section, Cholecystectomy, Tubal Ligation Additional Past Surgical History / Comment(s): colonoscopies, R groin mole removed then resected d/t abnormal cells-bening, kidney stones surgically removed, bilat cataracts removed, glaucoma sx, bilat retainal sx for bleeding, rt thoracentesis bilat at [facility] Past Anesthesia/Blood Transfusion Reactions: No Reported Reaction Past Psychological History: Anxiety Smoking Status: Never smoker Past Alcohol Use History: None Reported Past Drug Use History: None Reported - Past Family History Father Family Medical History: Cancer Additional Family Medical History / Comment(s): COLON, MELANOMA ON HIS CHEST AND HE ALSO HAS BENIGN BRAIN TUMORS 2, diabetes, pancreatic cancer. FATHER IS alive. Mother Family Medical History: Cancer, Dialysis Additional Family Medical History / Comment(s): MELANOMA THAT METASTASIZED TO THE BRAIN- FROM AT AGE 49 YRS. Mother had an PA at age 34 with angioplasty at age 36 yrs and another PA, and history of diabetes. Patient has many aunts, uncles and nieces with diabetes on her mother's side. Brother(s) Family Medical History: Cancer Additional Family Medical History / Comment(s): Patient has one half-brother with kidney stones, full brother with no major medical problems. Patient has 1 sister with no major medical problems. Daughter(s) Additional Family Medical History / Comment(s): Patient has 2 daughters and her youngest daughter has history of seizure disorder. Patient has one son with no major medical problems. General Exam Limitations: no limitations General appearance: alert, in no apparent distress Head exam: Present: atraumatic, normocephalic Eye exam: Present: normal appearance. Absent: scleral icterus, conjunctival injection ENT exam: Present: normal oropharynx Neck exam: Present: normal inspection Respiratory exam: Present: respiratory distress, rales. Absent: wheezes, rhonchi, stridor, chest wall tenderness, accessory muscle use Cardiovascular Exam: Present: tachycardia, gallop. Absent: systolic murmur, diastolic murmur, rubs GI/Abdominal exam: Present: soft. Absent: distended, tenderness, guarding, rebound, rigid, mass Extremities exam: Present: normal inspection, normal capillary refill, pedal edema. Absent: calf tenderness Back exam: Present: normal inspection. Absent: CVA tenderness (R), CVA tenderness (L) Neurological exam: Present: alert Skin exam: Present: warm, dry, intact, normal color. Absent: rash Course Vital Signs 01/23/25 01/23/25 01/23/25 05:09 05:37 06:41 Temperature 98.5 F Pulse Rate 108 H 106 H Respiratory 26 H 26 H 20 Rate Blood Pressure 175/112 153/103 O2 Sat by Pulse 95 93 L Oximetry 01/23/25 01/23/25 01/23/25 08:29 09:04 10:00 Temperature Pulse Rate 102 H 86 Respiratory 18 18 Rate Blood Pressure 159/106 141/101 O2 Sat by Pulse 100 100 99 Oximetry 01/23/25 15:15 Temperature Pulse Rate 85 Respiratory 18 Rate Blood Pressure 131/89 O2 Sat by Pulse 99 Oximetry Medical Decision Making - Medical Decision Making The patient had chest x-ray that I interpreted as negative for acute infiltrate, pneumothorax, pulmonary edema. The patient had CT scan of the chest that I interpreted as negative for acute pulmonary embolism Was pt. sent in by a medical professional or institution (, PA, UNDERGROUND SUPERVISOR, urgent care, hospital, or detention...) When possible be specific @ -[No] Did you speak to anyone other than the patient for history (EMS, parent, family, police, friend...)? What history was obtained from this source @ -[No] Did you review nursing and triage notes (agree or disagree)? Why? @ -[I reviewed and agree with nursing and triage notes] Were old charts reviewed (outside hosp., previous admission, EMS record, old EKG, old radiological studies, urgent care reports/EKG's, detention records)? Report findings @ -[No old charts were reviewed] Differential Diagnosis (chest pain, altered mental status, abdominal pain women, abdominal pain men, vaginal bleeding, weakness, fever, dyspnea, syncope, headache, dizziness, GI bleed, back pain, seizure, CVA, palpatations, mental health, musculoskeletal)? @ -[Differential Dyspnea: Coronary syndrome, arrhythmia, tamponade, asthma, COPD, pulmonary embolism, pneumonia, pneumothorax, pulmonary effusion, anaphylaxis, diabetic ketoacidosis, flailed chest, pulmonary contusion, diaphragmatic rupture, anemia, neuromuscular, this is not meant to be an all-inclusive list. EKG interpreted by me (3pts min.). @ -[I interpreted as above] X-rays interpreted by me (1pt min.). @ -[I interpreted as above CT interpreted by me (1pt min.). @ -[I interpreted as above U/S interpreted by me (1pt. min.). @ -[None done] What testing was considered but not performed or refused? (CT, X-rays, U/S, labs)? Why? @ -[None] What meds were considered but not given or refused? Why? @ -[None] Did you discuss the management of the patient with other professionals (professionals i.e. , PA, UNDERGROUND SUPERVISOR, lab, RT, psych nurse, social work program coordinator, sales property manager, teacher, financial aid officer, gearcase assembler)? Give summary @ -[Case discussed with admitting physician and treatment recommendations are incorporated Was smoking cessation discussed for >3mins.? @ -[No] Was critical care preformed (if so, how long)? @ -[No] Were there social determinants of health that impacted care today? How? (Homelessness, low income, unemployed, alcoholism, drug addiction, transportation, low edu. Level, literacy, decrease access to med. care, skilled nursing, rehab)? @ -[No] Was there de-escalation of care discussed even if they declined (Discuss DNR or withdrawal of care, Hospice)? DNR status @ -[No] What co-morbidities impacted this encounter? (DM, HTN, Smoking, COPD, CAD, Cancer, CVA, ARF, Chemo, Hep., AIDS, mental health diagnosis, sleep apnea, morbid obesity)? @ -[None] Was patient admitted / discharged? Hospital course, mention meds given and route, prescriptions, significant lab abnormalities, going to OR and other pertinent info. @ -[Patient is a 44-year-old woman with history of CHF who presents with worsening dyspnea and edema consistent with CHF exacerbation, given the degree of symptoms she will be admitted. In addition the patient will have cardiology consultation as she has not followed with her matrix plater any longer. Undiagnosed new problem with uncertain prognosis? @ -[No] Drug Therapy requiring intensive monitoring for toxicity (Heparin, Nitro, Insulin, Cardizem)? @ -[No] Were any procedures done? @ -[No] Diagnosis/symptom? @ -[Acute exacerbation of congestive heart failure Hyperglycemia Hyponatremia Acute, or Chronic, or Acute on Chronic? @ -[Acute Uncomplicated (without systemic symptoms) or Complicated (systemic symptoms)? @ -[Uncomplicated Side effects of treatment? @ -[No] Exacerbation, Progression, or Severe Exacerbation? @ -[Exacerbation of CHF Poses a threat to life or bodily function? How? (Chest pain, USA, PA, pneumonia, PE, COPD, DKA, ARF, appy, cholecystitis, CVA, Diverticulitis, Homicidal, Suicidal, threat to staff... and all critical care pts) @ -[Yes there is risk of worsening congestive heart failure leading to respiratory failure/ All treatments are based on ideal body weight as in ED triage - Lab Data Result diagrams: 01/29/25 07:15 01/29/25 07:15 Lab Results 01/23/25 01/23/25 01/23/25 Range/Units 05:58 05:58 05:58 WBC 5.48 (4.50-10.00) 10*3/uL RBC 4.82 (4.10-5.20) 10*6/uL Hgb 11.6 L (12.0-15.0) g/dL Hct 37.6 (37.2-46.3) % MCV 78.0 L (80.0-97.0) fL MCH 24.1 L (27.0-32.0) pg MCHC 30.9 L (32.0-37.0) g/dL Plt Count 173 (140-440) 10*3/uL MPV 9.5 (9.5-12.2) fL Immature Gran % (Auto) 0 % Neutrophils % 77.7 % Lymphocytes % 10.6 % Monocytes % 7.8 % Eosinophils % 2.4 % Basophils % 1.5 % Immature Gran # 0.00 (0.00-0.04) 10*3/uL Neutrophils # 4.26 (1.80-7.70) 10*3/uL Lymphocytes # 0.58 L (0.90-5.00) 10*3/uL Monocytes # 0.43 (0.20-1.00) 10*3/uL Eosinophils # 0.13 (0.04-0.35) 10*3/uL Basophils # 0.08 (0.00-0.10) 10*3/uL PT 10.7 (10.0-12.5) sec INR 1.0 (<1.2) APTT 21.1 L (22.0-30.0) sec D-Dimer 1.35 H (<0.60) mg/L FEU Sodium 121 L (137-145) mmol/L Potassium 5.8 H (3.5-5.1) mmol/L Chloride 85 L (98-107) mmol/L Carbon Dioxide 28 (22-30) mmol/L Anion Gap 8 mmol/L BUN 30 H (7-17) mg/dL Creatinine 0.86 (0.52-1.04) mg/dL Est GFR (CKD-EPI)AfAm >90 (>60 ml/min/1.73 sqM) Est GFR (CKD-EPI)NonAf 82 (>60 ml/min/1.73 sqM) Glucose 620 H* (74-99) mg/dL POC Glucose (mg/dL) (70-110) mg/dL POC Glu [employer] Supervisor ID Estimated Ave Glu mg/dL mg/dL Hemoglobin A1c (<=6.0) % Plasma Lactic Acid Carlos (0.7-2.0) mmol/L Calcium 9.1 (8.4-10.2) mg/dL Magnesium (1.6-2.3) mg/dL Total Bilirubin 1.0 (0.2-1.3) mg/dL AST 45 H (14-36) U/L ALT 28 (4-34) U/L Alkaline Phosphatase 256 H (38-126) U/L Troponin I (0.000-0.034) ng/mL NT-Pro-B Natriuret Pep 8120 pg/mL Total Protein 6.9 (6.3-8.2) g/dL Albumin 3.0 L (3.5-5.0) g/dL Triglycerides (0.00-149.00) mg/dL Cholesterol (0.00-200.00) mg/dL LDL Cholesterol, Calc (0.0-131.0) mg/dL VLDL Cholesterol, Calc (5.00-40.00) mg/dL HDL Cholesterol (40.00-60.00) mg/dL Cholesterol/HDL Ratio Ratio TSH (0.465-4.680) mIU/L Free T4 (0.78-2.19) ng/dL 01/23/25 01/23/25 01/23/25 Range/Units 05:58 05:58 05:58 WBC (4.50-10.00) 10*3/uL RBC (4.10-5.20) 10*6/uL Hgb (12.0-15.0) g/dL Hct (37.2-46.3) % MCV (80.0-97.0) fL MCH (27.0-32.0) pg MCHC (32.0-37.0) g/dL Plt Count (140-440) 10*3/uL MPV (9.5-12.2) fL Immature Gran % (Auto) % Neutrophils % % Lymphocytes % % Monocytes % % Eosinophils % % Basophils % % Immature Gran # (0.00-0.04) 10*3/uL Neutrophils # (1.80-7.70) 10*3/uL Lymphocytes # (0.90-5.00) 10*3/uL Monocytes # (0.20-1.00) 10*3/uL Eosinophils # (0.04-0.35) 10*3/uL Basophils # (0.00-0.10) 10*3/uL PT (10.0-12.5) sec INR (<1.2) APTT (22.0-30.0) sec D-Dimer (<0.60) mg/L FEU Sodium (137-145) mmol/L Potassium (3.5-5.1) mmol/L Chloride (98-107) mmol/L Carbon Dioxide (22-30) mmol/L Anion Gap mmol/L BUN (7-17) mg/dL Creatinine (0.52-1.04) mg/dL Est GFR (CKD-EPI)AfAm (>60 ml/min/1.73 sqM) Est GFR (CKD-EPI)NonAf (>60 ml/min/1.73 sqM) Glucose (74-99) mg/dL POC Glucose (mg/dL) (70-110) mg/dL POC Glu [employer] Supervisor ID Estimated Ave Glu mg/dL 418 mg/dL Hemoglobin A1c 16.2 H (<=6.0) % Plasma Lactic Acid Carlos 2.2 H* (0.7-2.0) mmol/L Calcium (8.4-10.2) mg/dL Magnesium (1.6-2.3) mg/dL Total Bilirubin (0.2-1.3) mg/dL AST (14-36) U/L ALT (4-34) U/L Alkaline Phosphatase (38-126) U/L Troponin I 0.018 (0.000-0.034) ng/mL NT-Pro-B Natriuret Pep pg/mL Total Protein (6.3-8.2) g/dL Albumin (3.5-5.0) g/dL Triglycerides (0.00-149.00) mg/dL Cholesterol (0.00-200.00) mg/dL LDL Cholesterol, Calc (0.0-131.0) mg/dL VLDL Cholesterol, Calc (5.00-40.00) mg/dL HDL Cholesterol (40.00-60.00) mg/dL Cholesterol/HDL Ratio Ratio TSH (0.465-4.680) mIU/L Free T4 (0.78-2.19) ng/dL 01/23/25 01/23/25 Range/Units 05:58 06:50 WBC (4.50-10.00) 10*3/uL RBC (4.10-5.20) 10*6/uL Hgb (12.0-15.0) g/dL Hct (37.2-46.3) % MCV (80.0-97.0) fL MCH (27.0-32.0) pg MCHC (32.0-37.0) g/dL Plt Count (140-440) 10*3/uL MPV (9.5-12.2) fL Immature Gran % (Auto) % Neutrophils % % Lymphocytes % % Monocytes % % Eosinophils % % Basophils % % Immature Gran # (0.00-0.04) 10*3/uL Neutrophils # (1.80-7.70) 10*3/uL Lymphocytes # (0.90-5.00) 10*3/uL Monocytes # (0.20-1.00) 10*3/uL Eosinophils # (0.04-0.35) 10*3/uL Basophils # (0.00-0.10) 10*3/uL PT (10.0-12.5) sec INR (<1.2) APTT (22.0-30.0) sec D-Dimer (<0.60) mg/L FEU Sodium (137-145) mmol/L Potassium (3.5-5.1) mmol/L Chloride (98-107) mmol/L Carbon Dioxide (22-30) mmol/L Anion Gap mmol/L BUN (7-17) mg/dL Creatinine (0.52-1.04) mg/dL Est GFR (CKD-EPI)AfAm (>60 ml/min/1.73 sqM) Est GFR (CKD-EPI)NonAf (>60 ml/min/1.73 sqM) Glucose (74-99) mg/dL POC Glucose (mg/dL) 570 H* (70-110) mg/dL POC Glu [employer] Supervisor ID Fabby Singleton Est[address] Glu mg/dL mg/dL Hemoglobin A1c (<=6.0) % Plasma Lactic Acid Carlos (0.7-2.0) mmol/L Calcium (8.4-10.2) mg/dL Magnesium 1.8 (1.6-2.3) mg/dL Total Bilirubin (0.2-1.3) mg/dL AST (14-36) U/L ALT (4-34) U/L Alkaline Phosphatase (38-126) U/L Troponin I (0.000-0.034) ng/mL NT-Pro-B Natriuret Pep pg/mL Total Protein (6.3-8.2) g/dL Albumin (3.5-5.0) g/dL Triglycerides 149.00 (0.00-149.00) mg/dL Cholesterol 172.00 (0.00-200.00) mg/dL LDL Cholesterol, Calc 101.9 (0.0-131.0) mg/dL VLDL Cholesterol, Calc 29.80 (5.00-40.00) mg/dL HDL Cholesterol 40.30 (40.00-60.00) mg/dL Cholesterol/HDL Ratio 4.27 Ratio TSH 4.800 H (0.465-4.680) mIU/L Free T4 1.93 (0.78-2.19) ng/dL - EKG Data -: EKG Interpreted by Me EKG shows normal: sinus rhythm, axis (Left axis deviation), QRS complexes (Low voltage QRS complexes) Rate: tachycardia (Rate 105 bpm) Interpretation: other (There is possible old anterior infarct.) Disposition Clinical Impression: Congestive heart failure, Hyperglycemia, Hyponatremia Disposition: ADMITTED IP TO THIS HOSP Condition: Fair Is patient prescribed a controlled substance at d/c from ED?: No
[2025-01-23 06:13] LABS: Basophils # (A) 0.08 10*3/uL (0.00-0.10); Basophils % (A) 1.5 %; Eosinophils # (A) 0.13 10*3/uL (0.04-0.35); Eosinophils % (A) 2.4 %; HCT 37.6 % (37.2-46.3); HGB 11.6 g/dL (12.0-15.0); Lymphocytes # (A) 0.58 10*3/uL (0.90-5.00); Lymphocytes % (A) 10.6 %; MCH 24.1 pg (27.0-32.0); MCHC 30.9 g/dL (32.0-37.0); Mean Platelet Volume 9.5 fL (9.5-12.2); Monocytes # (A) 0.43 10*3/uL (0.20-1.00); Monocytes % (A) 7.8 %; Neutrophils # (A) 4.26 10*3/uL (1.80-7.70); Neutrophils % (A) 77.7 %; Platelet Count 173 10*3/uL (140-440); RBC 4.82 10*6/uL (4.10-5.20); RDW 17.4 % (11.5-14.5); WBC 5.48 10*3/uL (4.50-10.00)
[2025-01-23] MEDS: FUROSEMIDE 10 MG/ML 4 ML VIAL IV STA (06:27)
[2025-01-23 06:29] LABS: ALT 28 U/L (4-34); African American GFR (CKD) >90 (>60 ml/min/1.73 sqM); Anion Gap 8 mmol/L; Blood Urea Nitrogen 30 mg/dL (7-17); Calcium 9.1 mg/dL (8.4-10.2); Carbon Dioxide 28 mmol/L (22-30); Chloride 85 mmol/L (98-107); Non-African American GFR(CKD) 82 (>60 ml/min/1.73 sqM); Sodium 121 mmol/L (137-145)
[2025-01-23 06:37] LABS: NT-Pro-B-Type Natriuretic Pept 8120 pg/mL
--- NOTE | 2025-01-23 06:39 | XR ---
EXAMINATION TYPE: XR chest 2V DATE OF EXAM: 01/23/2025 CLINICAL INDICATION: Female, 44 years old with history of difficulty breathing, TECHNIQUE: Frontal and lateral views of the chest are obtained. COMPARISON: Chest x-ray December 31, 2024 FINDINGS: There is persistent low lung volumes and cardiomegaly with bilateral lower lung linear opa cities favoring scarring and/or atelectasis. Stable small left pleural effusion. No new suspicious f ocal airspace opacity. The osseous structures are intact. IMPRESSION: Persistent low lung volumes and cardiomegaly with small left pleural effusion and bilater al lower lung linear scarring and/or atelectasis. No new acute pulmonary infiltrate. [facility], , 01/23/2025 6:37 AM
[2025-01-23 06:40] LABS: Partial Thromboplastin Time 21.1 sec (22.0-30.0); Prothrombin Time 10.7 sec (10.0-12.5)
[2025-01-23] MEDS: NITROGLYCERIN OINT 1 INCH/GM PACKET TOPICAL STA (06:45)
[2025-01-23] MEDS: HYDROmorphone 0.5 MG/0.5 ML SYRINGE IVP STA ×2 (06:45→23:34)
[2025-01-23] MEDS: NITROGLYCERIN SL TABS 0.4 MG TAB SUBLINGUAL STA (06:45)
[2025-01-23 06:48] LABS: Glucose 620 mg/dL (74-99); Potassium 5.8 mmol/L (3.5-5.1); Total Protein 6.9 g/dL (6.3-8.2)
[2025-01-23 06:49] LABS: AST 45 U/L (14-36); Alkaline Phosphatase 256 U/L (38-126)
[2025-01-23 06:53] LABS: Glucose,Whole Blood 570 mg/dL (70-110)
[2025-01-23] MEDS: INSULIN REGULAR 100 UNIT/ML VIAL (IV) SQ STA (07:04)
[2025-01-23] MEDS: MORPHINE SULFATE 4 MG/ML SYRINGE IV STA (07:11)
--- NOTE | 2025-01-23 07:35 | CT ---
EXAMINATION TYPE: CT chest angio for PE DATE OF EXAM: 01/23/2025 COMPARISON: Prior CT September 23, 2024 CLINICAL INDICATION: Female, 44 years old with history of dyspnea, possible PE, dyspnea, possible PE, elevated d-dimer. hx of CHF, TECHNIQUE: CTA scan of the thorax is performed with IV Contrast, patient injected with 81ml mL of Isovue 370, pu lmonary embolism protocol. MIP Images are created on CT scanner and reviewed. CT DLP: 320 mGycm. Automated Exposure Control for Dose Reduction was Utilized. FINDINGS: Exam is suboptimal as there is motion artifact. This limits evaluation particularly for sub centimeter nodules. LUNGS: There are small bilateral pleural effusions. There is mild to moderate bibasilar consolidation s and/or atelectasis redemonstrated. HEART: Mild cardiomegaly is seen. Moderate coronary artery calcifications are redemonstrated. Mild to moderate left ventricular dilatation is noted. Moderate biatrial dilatation is present. MEDIASTINUM: There is satisfactory enhancement of the pulmonary artery and its branches, there is no CT evidence for pulmonary embolism. There are no new greater than 1 cm hilar or mediastinal lymph no karen. Tiny pericardial effusion is seen. OTHER: New extensive subcutaneous edema. IMPRESSION: 1. New severe diffuse subcutaneous edema and soft tissue swelling. Correlate clinically. 2. No CT evidence for acute pulmonary embolism. 3. New small bilateral pleural effusions. Persistent cardiomegaly with mild to moderate bibasilar con solidation and/or atelectasis. [facility], , 01/23/2025 7:33 AM
[2025-01-23] MEDS: levETIRAcetam 500 MG TAB PO SCH (08:31)
[2025-01-23] MEDS: SODIUM BICARBONATE TAB 650 MG TAB PO SCH (08:31)
[2025-01-23] MEDS: DAPAGLIFLOZIN PROPANEDIOL 5 MG TABLET PO SCH (08:31)
[2025-01-23] MEDS: APIXABAN 5 MG TAB PO SCH (08:31)
[2025-01-23] MEDS: METOPROLOL TARTRATE 50 MG TAB PO SCH (08:31)
[2025-01-23] MEDS: PANTOPRAZOLE 40 MG TABLET PO SCH (08:32)
[2025-01-23] MEDS: FUROSEMIDE 40 MG TAB PO SCH (08:32)
[2025-01-23] MEDS ORDERED: DEXTROSE 50% SYRINGE 50 ML IVP PRN ×2 (08:57)
[2025-01-23] MEDS: SYMBICORT 160-4.5 MCG INHALER INHALATION SCH (08:59)
[2025-01-23 09:02] LABS: Glucose,Whole Blood 496 mg/dL (70-110)
[2025-01-23] MEDS: INSULIN LISPRO (HumaLOG) 100 UNIT/ML 10 mL VL SQ SCH (10:16)
[2025-01-23] MEDS: HYDROcodone/APAP 10-325MG 1 EACH TAB PO PRN (10:42)
--- NOTE | 2025-01-23 11:37 | P.HPIM ---
History of Present Illness 44-year-old female came in with complaints of shortness of breath orthopnea paroxysmal nocturnal dyspnea. Found to be in heart failure exacerbation patient has chronic diastolic dysfunction. Patient takes 40 mg of Lasix at home. Patient's echocardiogram in the past showed EF of around 60 to 65% this was done earlier this month. Patient had any fever chills nausea vomiting patient had a CT angio of the chest which did not show any pulmonary embolism and studies showed pulmonary edema. Patient blood sugars are also very high at 620 patient is only on Jardiance. Patient is supposed to be on Lantus which she has not been taking at home. Patient has elevated potassium of 5.8 as well. Patient received IV insulin after her blood sugars have come down to 400. Patient appears to be only on Premeal insulin 10 units 3 times a day and Lantus 12 units. Patient was started on IV Lasix here. Patient is also complaining of severe back pain for which patient is on Belva. REVIEW OF SYSTEMS: All other systems are negative except those mentioned in the HPI PHYSICAL EXAMINATION: GENERAL: The patient is alert and oriented x3, not in any acute distress. Well developed, well nourished. HEENT: Pupils are round and equally reacting to light. EOMI. No scleral icterus. No conjunctival pallor. Normocephalic, atraumatic. No pharyngeal erythema. No thyromegaly. CARDIOVASCULAR: S1 and S2 present. No murmurs, rubs, or gallops. PULMONARY: Chest is clear to auscultation, no wheezing or crackles. ABDOMEN: Soft, nontender, nondistended, normoactive bowel sounds. No palpable organomegaly. MUSCULOSKELETAL: No joint swelling or deformity. EXTREMITIES: No cyanosis, clubbing, extensive bilateral lower extremity edema NEUROLOGICAL: Gross neurological examination did not reveal any focal deficits. SKIN: No rashes. Patient has a small uninfected wound Assessment and plan -Congestive heart failure chronic diastolic dysfunction with acute exacerbation. Patient will be continued on IV Lasix cardiology will evaluate the patient patient has elevated BNP extensive pedal edema. Patient was also started on [place]leen oxolyn - Acute hypoxic respiratory failure secondary to CHF exacerbation - Hyperglycemia due to noncompliance with medications patient will be started on 20 units of Lantus along with sliding scale insulin will titrate the insulin depending her insulin requirements. - Rule out pulmonary embolism - Seizure disorder patient was resumed on antiseizure medications - Patient is on anticoagulation I believe is for atrial fibrillation although I do not see that in her history DVT prophylaxis: On anticoagulation with Eliquis Past Medical History Past Medical History: Asthma, Heart Failure, CVA/TIA, Diabetes Mellitus, GI Bleed, Pneumonia, Seizure Disorder Additional Past Medical History / Comment(s): NIDDM type II, grand mal seizure and stroke once in 2017, lower GI bleed, mild diverticular dx, PCOS, bronchitis, pneumonia, migraines, allergic rhinitis. Kidney stones, last seizure 10/29/24- still has small bruise on back from falling r/t seizure, currently has pleural effusion bilat History of Any Multi-Drug Resistant Organisms: MRSA, None Reported Date of last positivie culture/infection: 2011 MDRO Source:: Lungs Past Surgical History: Section, Cholecystectomy, Tubal Ligation Additional Past Surgical History / Comment(s): colonoscopies, R groin mole removed then resected d/t abnormal cells-bening, kidney stones surgically removed, bilat cataracts removed, glaucoma sx, bilat retainal sx for bleeding, rt thoracentesis bilat at [facility] Past Anesthesia/Blood Transfusion Reactions: No Reported Reaction Past Psychological History: Anxiety Smoking Status: Never smoker Past Alcohol Use History: None Reported Past Drug Use History: None Reported - Past Family History Father Family Medical History: Cancer Additional Family Medical History / Comment(s): COLON, MELANOMA ON HIS CHEST AND HE ALSO HAS BENIGN BRAIN TUMORS 2, diabetes, pancreatic cancer. FATHER IS alive. Mother Family Medical History: Cancer, Dialysis Additional Family Medical History / Comment(s): MELANOMA THAT METASTASIZED TO THE BRAIN- FROM AT AGE 49 YRS. Mother had an VT at age 34 with angioplasty at age 36 yrs and another VT, and history of diabetes. Patient has many aunts, uncles and nieces with diabetes on her mother's side. Brother(s) Family Medical History: Cancer Additional Family Medical History / Comment(s): Patient has one half-brother with kidney stones, full brother with no major medical problems. Patient has 1 sister with no major medical problems. Daughter(s) Additional Family Medical History / Comment(s): Patient has 2 daughters and her youngest daughter has history of seizure disorder. Patient has one son with no major medical problems. Medications and Allergies Home Medications Medication Instructions Recorded Confirmed Type Albuterol Inhaler [Ventolin Hfa 2 puff INHALATION RT-Q4H PRN 04/15/17 01/23/25 History Inhaler] HYDROcodone/APAP 10-325MG [[place] 1 tab PO TID PRN 01/14/18 01/23/25 History 10-325] Loratadine [Claritin] 10 mg PO DAILY 03/26/23 01/23/25 History levETIRAcetam [Keppra] 500 mg PO DAILY 08/29/23 01/23/25 History Cyclobenzaprine [Flexeril] 20 mg PO HS 11/11/23 01/23/25 History Ondansetron Odt [Zofran ODT] 4 mg PO TID PRN 04/06/24 01/23/25 History Albuterol Nebulized [Ventolin 2.5 mg INHALATION RT-QID PRN 11/04/24 01/23/25 History Nebulized] Apixaban [Eliquis] 5 mg PO BID 11/04/24 01/23/25 History Budesonide/Formoterol Fumarate 2 puff INHALATION RT-DAILY 11/04/24 01/23/25 History [Symbicort 160-4.5 Mcg Inhaler] Empagliflozin [Jardiance] 10 mg PO DAILY 11/04/24 01/23/25 History Furosemide [Lasix] 40 mg PO DAILY 11/04/24 01/23/25 History Metoprolol Tartrate [Lopressor] 50 mg PO DAILY 11/04/24 01/23/25 History Pantoprazole [Protonix] 40 mg PO DAILY 12/21/24 01/23/25 History Sodium Bicarbonate 325 mg PO DAILY 12/21/24 01/23/25 History Naproxen [Naprosyn] 500 mg PO BID PRN 12/31/24 01/23/25 History Cephalexin [Keflex] 500 mg PO Q6H 7 Days #28 cap 01/12/25 01/23/25 Rx Azithromycin [Zithromax Z Pack] See Taper PO DAILY 01/23/25 01/23/25 History Chlorhexidine Gluconate [Peridex] 15 ml PO BID 01/23/25 01/23/25 History Allergies Allergy/AdvReac Type Severity Reaction Status Date / Time Penicillins Allergy Nausea & Verified 01/23/25 10:48 Vomiting, rash codeine AdvReac Nausea & Verified 01/23/25 10:48 Vomiting morphine AdvReac Nausea & Verified 01/23/25 10:48 Vomiting Sulfa (Sulfonamide AdvReac Nausea & Verified 01/23/25 10:48 Antibiotics) Vomiting, rash tramadol AdvReac Per Verified 01/23/25 10:48 patient, cannot take with Keppra Physical Exam Vitals: Vital Signs Temp Pulse Resp BP Pulse Ox 01/23/25 10:00 86 18 141/101 99 01/23/25 09:04 100 01/23/25 08:29 102 H 18 159/106 100 01/23/25 06:41 106 H 20 153/103 93 L 01/23/25 05:37 26 H 01/23/25 05:09 98.5 F 108 H 26 H 175/112 95 Intake and Output 01/22/25 01/23/25 01/23/25 22:59 06:59 14:59 Other: Weight 69.853 kg Results CBC & Chem 7: 01/23/25 05:58 01/23/25 05:58 Labs: Abnormal Lab Results - Last 24 Hours (Table) 01/23/25 01/23/25 01/23/25 Range/Units 05:58 05:58 05:58 Hgb 11.6 L (12.0-15.0) g/dL MCV 78.0 L (80.0-97.0) fL MCH 24.1 L (27.0-32.0) pg MCHC 30.9 L (32.0-37.0) g/dL Lymphocytes # 0.58 L (0.90-5.00) 10*3/uL APTT 21.1 L (22.0-30.0) sec D-Dimer 1.35 H (<0.60) mg/L FEU Sodium 121 L (137-145) mmol/L Potassium 5.8 H (3.5-5.1) mmol/L Chloride 85 L (98-107) mmol/L BUN 30 H (7-17) mg/dL Glucose 620 H* (74-99) mg/dL POC Glucose (mg/dL) (70-110) mg/dL Plasma Lactic Acid Carlos (0.7-2.0) mmol/L AST 45 H (14-36) U/L Alkaline Phosphatase 256 H (38-126) U/L Albumin 3.0 L (3.5-5.0) g/dL 01/23/25 01/23/25 01/23/25 Range/Units 05:58 06:50 09:00 Hgb (12.0-15.0) g/dL MCV (80.0-97.0) fL MCH (27.0-32.0) pg MCHC (32.0-37.0) g/dL Lymphocytes # (0.90-5.00) 10*3/uL APTT (22.0-30.0) sec D-Dimer (<0.60) mg/L FEU Sodium (137-145) mmol/L Potassium (3.5-5.1) mmol/L Chloride (98-107) mmol/L BUN (7-17) mg/dL Glucose (74-99) mg/dL POC Glucose (mg/dL) 570 H* 496 H (70-110) mg/dL Plasma Lactic Acid Carlos 2.2 H* (0.7-2.0) mmol/L AST (14-36) U/L Alkaline Phosphatase (38-126) U/L Albumin (3.5-5.0) g/dL
[2025-01-23 12:20] LABS: Glucose,Whole Blood 325 mg/dL (70-110)
[2025-01-23] MEDS ORDERED: INSULIN LISPRO (HumaLOG) 100 UNIT/ML 10 mL VL SQ SCH (12:30)
[2025-01-23 12:38] LABS: African American GFR (CKD) 84 (>60 ml/min/1.73 sqM); Anion Gap 10 mmol/L; Blood Urea Nitrogen 29 mg/dL (7-17); Calcium 9.5 mg/dL (8.4-10.2); Carbon Dioxide 32 mmol/L (22-30); Chloride 86 mmol/L (98-107); Glucose 281 mg/dL (74-99); Non-African American GFR(CKD) 73 (>60 ml/min/1.73 sqM); Potassium 4.1 mmol/L (3.5-5.1); Sodium 128 mmol/L (137-145)
[2025-01-23 12:38] LABS: Magnesium 1.8 mg/dL (1.6-2.3)
[2025-01-23] MEDS: FUROSEMIDE 10 MG/ML 4 ML VIAL IV SCH (12:40)
[2025-01-23 13:44] LABS: T4, Free (Free Thyroxine) 1.93 ng/dL (0.78-2.19)
[2025-01-23] MEDS: metOLazone 2.5 MG TAB PO SCH (14:34)
[2025-01-23] MEDS: HYDROmorphone 1 MG/ML 1 ML SYRINGE IVP STA (16:05)
[2025-01-23 16:25] LABS: Glucose,Whole Blood 181 mg/dL (70-110)
--- NOTE | 2025-01-23 16:34 | P.CRDCN ---
History of Present Illness Consult date: 01/23/25 History of present illness: HISTORY OF PRESENTING ILLNESS: 43-year-old female presented the hospital because of increased worsening dyspnea on exertion along with symptoms of orthopnea and paroxysmal nocturnal dyspnea. On admission she appeared volume overloaded and was noticed to be hyperglycemic cardiology was consulted for CHF management. She denies any symptoms of chest pain chest pressure. She reports that she follows up with a posting specialist in [facility] and she has been told that she might need a heart catheterization procedure for low LVEF. Admission Vitals: 160/100 mmHg, 102 bpm Admission Labs: Hb 11 BUN 30, creatinine 0.8, glucose 640, lactate 2.2, repeat 2.8, troponins were not elevated, NT-proBNP 8000, TSH 4.8, Admission EKG: EKG showed sinus tachycardia heart rate 105 bpm, low voltage complexes, poor R wave progression Imaging: CTA chest did not show any evidence of PE but did show subcutaneous edema suggestive of fluid overload situation, cardiomegaly At home she is on Lasix 40 mg daily, Jardiance 10 mg daily, Eliquis 5 mg twice daily, metoprolol 50 mg daily REVIEW OF SYSTEMS: 14 point review of system is negative except what is mentioned above in HPI. PHYSICAL EXAMINATION: Neck: Brisk carotid upstroke, mild JVP Lungs: Diminished breath sounds with mild crackles audible in bilateral lung mcclellan Heart: Regular rate and rhythm, S1-S2, , no murmur or rub. Abdomen: Soft nontender, positive bowel sounds. Extremities: 1+ pitting edema bilateral extremity Neuro: Alert, oritented, no focal deficits. Detailed neuro exam was not performed. ASSESSMENT: # Acute CHF exacerbation, EF unknown # Severe hyperglycemia # Electrolyte imbalance with hyponatremia and hyperkalemia # Lactic acidosis # Poorly controlled type 2 diabetes # Obesity PLAN: For diuretics he is on Farxiga 10 mg, Lasix 40 mg twice daily, Start metoprolol XL 50 mg daily and losartan 25 mg daily Obtain echocardiogram Obtain lipid and A1c levels For some reason she is on Eliquis 5 mg twice daily. Will continue for now. Request medical records from her primary posting specialist. Clayton Silverio MD, FACC, RPVI Thank you for allowing [facility] to participate in this patient's care. Feel free to reach out in case of any followup questions. Past Medical History Past Medical History: Asthma, Heart Failure, CVA/TIA, Diabetes Mellitus, GI Bleed, Pneumonia, Seizure Disorder Additional Past Medical History / Comment(s): NIDDM type II, grand mal seizure and stroke once in 2016 and second stroke in 2021, last seizure October of 2024, lower GI bleed, mild diverticular dx, PCOS, bronchitis, pneumonia, migraines, allergic rhinitis. Kidney stones, last seizure 10/29/24-still has small bruise on back from falling r/t seizure, currently has pleural effusion bilat, gastroparesis, neuropathy, "leaky heart valve" History of Any Multi-Drug Resistant Organisms: MRSA, None Reported Date of last positivie culture/infection: 2011 MDRO Source:: Lungs Past Surgical History: Section, Cholecystectomy, Tubal Ligation Additional Past Surgical History / Comment(s): colonoscopies, R groin mole removed then resected d/t abnormal cells-bening, kidney stones surgically removed, bilat cataracts removed, glaucoma sx, bilat retainal sx for bleeding, rt thoracentesis bilat at [place] Past Anesthesia/Blood Transfusion Reactions: No Reported Reaction Past Psychological History: Anxiety Additional Psychological History / Comment(s): Pt resides with her 2 children. Pt is independent. She drives. Smoking Status: Never smoker Past Alcohol Use History: None Reported Additional Past Alcohol Use History / Comment(s): Patient is a lifelong nonsmoker. She denies any marijuana or street drug use. Past Drug Use History: None Reported - Past Family History Father Family Medical History: Cancer Additional Family Medical History / Comment(s): COLON, MELANOMA ON HIS CHEST AND HE ALSO HAS BENIGN BRAIN TUMORS 2, diabetes, pancreatic cancer. FATHER IS alive. Mother Family Medical History: Cancer, Dialysis Additional Family Medical History / Comment(s): MELANOMA THAT METASTASIZED TO THE BRAIN- FROM AT AGE 49 YRS. Mother had an [place] at age 34 with angioplasty at age 36 yrs and another [place], and history of diabetes. Patient has many aunts, uncles and nieces with diabetes on her mother's side. Brother(s) Family Medical History: Cancer Additional Family Medical History / Comment(s): Patient has one half-brother with kidney stones, full brother with no major medical problems. Patient has 1 sister with no major medical problems. Daughter(s) Additional Family Medical History / Comment(s): Patient has 2 daughters and her youngest daughter has history of seizure disorder. Patient has one son with no major medical problems. Medications and Allergies Home Medications Medication Instructions Recorded Confirmed Type Albuterol Inhaler [Ventolin Hfa 2 puff INHALATION RT-Q4H PRN 04/15/17 01/23/25 History Inhaler] HYDROcodone/APAP 10-325MG [[place] 1 tab PO TID PRN 01/14/18 01/23/25 History 10-325] Loratadine [Claritin] 10 mg PO DAILY 03/26/23 01/23/25 History levETIRAcetam [Keppra] 500 mg PO DAILY 08/29/23 01/23/25 History Cyclobenzaprine [Flexeril] 20 mg PO HS 11/11/23 01/23/25 History Ondansetron Odt [Zofran ODT] 4 mg PO TID PRN 04/06/24 01/23/25 History Albuterol Nebulized [Ventolin 2.5 mg INHALATION RT-QID PRN 11/04/24 01/23/25 History Nebulized] Apixaban [Eliquis] 5 mg PO BID 11/04/24 01/23/25 History Budesonide/Formoterol Fumarate 2 puff INHALATION RT-DAILY 11/04/24 01/23/25 History [Symbicort 160-4.5 Mcg Inhaler] Empagliflozin [Jardiance] 10 mg PO DAILY 11/04/24 01/23/25 History Furosemide [Lasix] 40 mg PO DAILY 11/04/24 01/23/25 History Metoprolol Tartrate [Lopressor] 50 mg PO DAILY 11/04/24 01/23/25 History Pantoprazole [Protonix] 40 mg PO DAILY 12/21/24 01/23/25 History Sodium Bicarbonate 325 mg PO DAILY 12/21/24 01/23/25 History Naproxen [Naprosyn] 500 mg PO BID PRN 12/31/24 01/23/25 History Cephalexin [Keflex] 500 mg PO Q6H 7 Days #28 cap 01/12/25 01/23/25 Rx Azithromycin [Zithromax Z Pack] See Taper PO DAILY 01/23/25 01/23/25 History Chlorhexidine Gluconate [Peridex] 15 ml PO BID 01/23/25 01/23/25 History Allergies Allergy/AdvReac Type Severity Reaction Status Date / Time Penicillins Allergy Nausea & Verified 01/23/25 10:48 Vomiting, rash codeine AdvReac Nausea & Verified 01/23/25 10:48 Vomiting morphine AdvReac Nausea & Verified 01/23/25 10:48 Vomiting Sulfa (Sulfonamide AdvReac Nausea & Verified 01/23/25 10:48 Antibiotics) Vomiting, rash tramadol AdvReac Per Verified 01/23/25 10:48 patient, cannot take with Keppra Physical Exam Vitals: Vital Signs Temp Pulse Pulse Resp BP BP Pulse Ox 01/23/25 15:43 97.9 F 87 20 126/80 99 01/23/25 15:15 85 18 131/89 99 01/23/25 10:00 86 18 141/101 99 01/23/25 09:04 100 01/23/25 08:29 102 H 18 159/106 100 01/23/25 06:41 106 H 20 153/103 93 L 01/23/25 05:37 26 H 01/23/25 05:09 98.5 F 108 H 26 H 175/112 95 Intake and Output 01/23/25 01/23/25 01/23/25 06:59 14:59 22:59 Other: Weight 69.853 kg 69.853 kg Results 01/23/25 05:58 01/23/25 11:50 Cardiac Enzymes 01/23/25 01/23/25 01/23/25 Range/Units 05:58 05:58 10:09 AST 45 H (14-36) U/L Troponin I 0.018 <0.012 (0.000-0.034) ng/mL 01/23/25 Range/Units 13:11 AST (14-36) U/L Troponin I 0.012 (0.000-0.034) ng/mL Coagulation 01/23/25 Range/Units 05:58 PT 10.7 (10.0-12.5) sec APTT 21.1 L (22.0-30.0) sec CBC 01/23/25 Range/Units 05:58 WBC 5.48 (4.50-10.00) 10*3/uL RBC 4.82 (4.10-5.20) 10*6/uL Hgb 11.6 L (12.0-15.0) g/dL Hct 37.6 (37.2-46.3) % Plt Count 173 (140-440) 10*3/uL Comprehensive Metabolic Panel 01/23/25 01/23/25 Range/Units 05:58 11:50 Sodium 121 L 128 L (137-145) mmol/L Potassium 5.8 H 4.1 (3.5-5.1) mmol/L Chloride 85 L 86 L (98-107) mmol/L Carbon Dioxide 28 32 H (22-30) mmol/L BUN 30 H 29 H (7-17) mg/dL Creatinine 0.86 0.94 (0.52-1.04) mg/dL Glucose 620 H* 281 H (74-99) mg/dL Calcium 9.1 9.5 (8.4-10.2) mg/dL AST 45 H (14-36) U/L ALT 28 (4-34) U/L Alkaline Phosphatase 256 H (38-126) U/L Total Protein 6.9 (6.3-8.2) g/dL Albumin 3.0 L (3.5-5.0) g/dL Current Medications Generic Name Dose Route Start Last Admin Trade Name Freq PRN Reason Stop Dose Admin Hydrocodone Bitart/Acetaminophen 1 each 01/23/25 07:03 01/23/25 10:42 Hydrocodone/Apap 10-325mg 1 Each Tab PO 1 each TID PRN Administration Pain Albuterol Sulfate 2.5 mg 01/23/25 07:03 Albuterol Nebulized 2.5 Mg/3 Ml INHALATION RT-QID PRN Shortness Of Breath Apixaban 5 mg 01/23/25 09:00 01/23/25 08:31 Apixaban 5 Mg Tab PO 5 mg BID SUSAN Administration Protocol Azithromycin 250 mg 01/24/25 09:00 Azithromycin 500 Mg Tab PO DAILY [facility] Budesonide/Formoterol Fumarate 2 puff 01/23/25 08:00 01/23/25 08:59 Symbicort 160-4.5 Mcg Inhaler INHALATION 2 puff RT-DAILY SUSAN Administration Cyclobenzaprine HCl 20 mg 01/23/25 21:00 Cyclobenzaprine 10 Mg Tab PO HS SUSAN Dapagliflozin 10 mg 01/24/25 09:00 Dapagliflozin Propanediol 10 Mg Tablet PO DAILY SUSAN Dextrose/Water 25 ml 01/23/25 08:57 Dextrose 50% Syringe 50 Ml IVP PER PROTOCOL PRN Hypoglycemia Protocol Dextrose/Water 50 ml 01/23/25 08:57 Dextrose 50% Syringe 50 Ml IVP PER PROTOCOL PRN Hypoglycemia Protocol Furosemide 40 mg 01/23/25 11:45 01/23/25 12:40 Furosemide 10 Mg/Ml 4 Ml Vial IV 40 mg Q12HR SUSAN Administration Insulin Glargine 20 unit 01/24/25 07:00 Insulin Glargine (Lantus) 100 Unit/Ml Syr SQ DAILY@0700 [facility] Insulin Human Lispro 0 unit 01/23/25 10:01 01/23/25 12:52 Insulin Lispro (Humalog) 100 Unit/Ml 10 Ml Vl SQ 4 unit ACHS [facility] Administration Protocol Levetiracetam 500 mg 01/23/25 09:00 01/23/25 08:31 Levetiracetam 500 Mg Tab PO 500 mg DAILY [facility] Administration Losartan Potassium 25 mg 01/23/25 16:45 Losartan 25 Mg Tab PO DAILY [facility] Metoprolol Succinate 50 mg 01/24/25 09:00 Metoprolol Succinate (Er) 50 Mg Tab.Er.24h PO DAILY [facility] Ondansetron HCl 4 mg 01/23/25 07:03 Ondansetron Odt 4 Mg Tab PO TID PRN Nausea Pantoprazole Sodium 40 mg 01/23/25 09:00 01/23/25 08:32 Pantoprazole 40 Mg Tablet PO 40 mg DAILY [facility] Administration Intake and Output 01/23/25 01/23/25 01/23/25 06:59 14:59 22:59 Other: Weight 69.853 kg 69.853 kg Patient Weight 01/24/25 06:59 Weight 69.853 kg 01/23/25 05:58 01/23/25 11:50
[2025-01-23] MEDS: LOSARTAN 25 MG TAB PO SCH (16:41)
[2025-01-23 20:00] LABS: Glucose,Whole Blood 198 mg/dL (70-110)
[2025-01-23] MEDS: CYCLOBENZAPRINE 10 MG TAB PO SCH (20:08)
[2025-01-24] MEDS: ONDANSETRON ODT 4 MG TAB PO PRN (04:30)
[2025-01-24 06:29] LABS: Glucose,Whole Blood 294 mg/dL (70-110)
[2025-01-24] MEDS: INSULIN GLARGINE (LANTUS) 100 UNIT/ML SYR SQ SCH (06:34)
[2025-01-24] MEDS ORDERED: INSULIN GLARGINE (LANTUS) 100 UNIT/ML SYR SQ SCH (07:00)
[2025-01-24 08:02] LABS: Chol/HDL Ratio 4.27 Ratio; LDL Cholesterol,Calculated 101.9 mg/dL (0.0-131.0)
[2025-01-24 08:08] LABS: African American GFR (CKD) 70 (>60 ml/min/1.73 sqM); Anion Gap 4 mmol/L; Blood Urea Nitrogen 31 mg/dL (7-17); Calcium 9.4 mg/dL (8.4-10.2); Carbon Dioxide 32 mmol/L (22-30); Chloride 92 mmol/L (98-107); Glucose 299 mg/dL (74-99); Magnesium 1.8 mg/dL (1.6-2.3); Non-African American GFR(CKD) 60 (>60 ml/min/1.73 sqM); Potassium 4.3 mmol/L (3.5-5.1); Sodium 128 mmol/L (137-145)
[2025-01-24] MEDS: DAPAGLIFLOZIN PROPANEDIOL 10 MG TABLET PO SCH (08:31)
[2025-01-24] MEDS: METOPROLOL SUCCINATE (ER) 50 MG TAB.ER.24H PO SCH (08:31)
[2025-01-24] MEDS: AZITHROMYCIN 500 MG TAB PO SCH (08:31)
[2025-01-24] MEDS: PROCHLORPERAZINE INJ 10 MG/2 ML VIAL IVP PRN (10:37)
[2025-01-24 11:29] LABS: Glucose,Whole Blood 299 mg/dL (70-110)
--- NOTE | 2025-01-24 11:39 | P.PN ---
Subjective 44-year-old female came in with complaints of shortness of breath orthopnea paroxysmal nocturnal dyspnea. Found to be in heart failure exacerbation patient has chronic diastolic dysfunction. Patient takes 40 mg of Lasix at home. Patient's echocardiogram in the past showed EF of around 60 to 65% this was done earlier this month. Patient had any fever chills nausea vomiting patient had a CT angio of the chest which did not show any pulmonary embolism and studies showed pulmonary edema. Patient blood sugars are also very high at 620 patient is only on Jardiance. Patient is supposed to be on Lantus which she has not been taking at home. Patient has elevated potassium of 5.8 as well. Patient received IV insulin after her blood sugars have come down to 400. Patient appears to be only on Premeal insulin 10 units 3 times a day and Lantus 12 units. Patient was started on IV Lasix here. Patient is also complaining of severe back pain for which patient is on [place]. 01/24/2025 Patient has about a 250 of urine output patient is much less hypoxic today saturating 100% on 2 L patient will be weaned off oxygen. 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 All other review of systems are negative PHYSICAL EXAMINATION: GENERAL: The patient is alert and oriented x3, not in any acute distress. Well developed, well nourished. HEENT: Pupils are round and equally reacting to light. EOMI. No scleral icterus. No conjunctival pallor. Normocephalic, atraumatic. No pharyngeal erythema. No thyromegaly. CARDIOVASCULAR: S1 and S2 present. No murmurs, rubs, or gallops. PULMONARY: Chest is clear to auscultation, no wheezing or crackles. ABDOMEN: Soft, nontender, nondistended, normoactive bowel sounds. No palpable organomegaly. MUSCULOSKELETAL: No joint swelling or deformity. EXTREMITIES: No cyanosis, clubbing, extensive bilateral lower extremity edema NEUROLOGICAL: Gross neurological examination did not reveal any focal deficits. SKIN: No rashes. Patient has a small uninfected wound Assessment and plan -Congestive heart failure chronic diastolic dysfunction with acute exacerbation. Proved with Lasix and Zaroxolyn. Patient's oxygen requirements have come down - Acute hypoxic respiratory failure secondary to CHF exacerbation - Hyperglycemia due to noncompliance with medications increasing long-acting insulin to 20 units - Ruled out pulmonary embolism - Seizure disorder patient was resumed on antiseizure medications -Chronic back pain - Patient is on anticoagulation I believe is for atrial fibrillation although I do not see that in her history Objective - Vital Signs Vital signs: Vital Signs Temp 98.0 F 01/24/25 08:22 Pulse 108 H 01/24/25 08:22 Resp 20 01/24/25 08:22 BP 158/113 01/24/25 08:22 Pulse Ox 100 01/24/25 08:22 FiO2 Intake & Output 01/23/25 01/24/25 01/24/25 18:59 06:59 18:59 Intake Total 180 240 Output Total 800 1450 Balance 180 -800 -1210 Weight 69.853 kg 76.7 kg Intake: Oral 180 240 Output: Urine 800 1450 Other: Voiding Method Toilet Toilet # Voids 1 # Bowel Movements 1 1 - Labs CBC & Chem 7: 01/23/25 05:58 01/24/25 07:23 Labs: Abnormal Lab Results - Last 24 Hours (Table) 01/23/25 01/23/25 01/23/25 Range/Units 05:58 05:58 10:09 Sodium (137-145) mmol/L Chloride (98-107) mmol/L Carbon Dioxide (22-30) mmol/L BUN (7-17) mg/dL Creatinine (0.52-1.04) mg/dL Glucose (74-99) mg/dL POC Glucose (mg/dL) (70-110) mg/dL Hemoglobin A1c 16.2 H (<=6.0) % Plasma Lactic Acid Carlos 2.8 H* (0.7-2.0) mmol/L TSH 4.800 H (0.465-4.680) mIU/L 01/23/25 01/23/25 01/23/25 Range/Units 11:50 12:19 15:01 Sodium 128 L (137-145) mmol/L Chloride 86 L (98-107) mmol/L Carbon Dioxide 32 H (22-30) mmol/L BUN 29 H (7-17) mg/dL Creatinine (0.52-1.04) mg/dL Glucose 281 H (74-99) mg/dL POC Glucose (mg/dL) 325 H (70-110) mg/dL Hemoglobin A1c (<=6.0) % Plasma Lactic Acid Carlos 2.8 H* (0.7-2.0) mmol/L TSH (0.465-4.680) mIU/L 01/23/25 01/23/25 01/24/25 Range/Units 16:23 19:59 06:27 Sodium (137-145) mmol/L Chloride (98-107) mmol/L Carbon Dioxide (22-30) mmol/L BUN (7-17) mg/dL Creatinine (0.52-1.04) mg/dL Glucose (74-99) mg/dL POC Glucose (mg/dL) 181 H 198 H 294 H (70-110) mg/dL Hemoglobin A1c (<=6.0) % Plasma Lactic Acid Carlos (0.7-2.0) mmol/L TSH (0.465-4.680) mIU/L 01/24/25 01/24/25 Range/Units 07:23 11:27 Sodium 128 L (137-145) mmol/L Chloride 92 L (98-107) mmol/L Carbon Dioxide 32 H (22-30) mmol/L BUN 31 H (7-17) mg/dL Creatinine 1.10 H (0.52-1.04) mg/dL Glucose 299 H (74-99) mg/dL POC Glucose (mg/dL) 299 H (70-110) mg/dL Hemoglobin A1c (<=6.0) % Plasma Lactic Acid Carlos (0.7-2.0) mmol/L TSH (0.465-4.680) mIU/L
[2025-01-24] MEDS: INSULIN GLARGINE (LANTUS) 100 UNIT/ML SYR SQ STA (12:28)
--- NOTE | 2025-01-24 16:15 | P.PN ---
Subjective Progress Note Date: 01/24/25 HISTORY OF PRESENTING ILLNESS: 43-year-old female presented the hospital because of increased worsening dyspnea on exertion along with symptoms of orthopnea and paroxysmal nocturnal dyspnea. On admission she appeared volume overloaded and was noticed to be hyperglycemic cardiology was consulted for CHF management. She denies any symptoms of chest pain chest pressure. She reports that she follows up with a senior lead project manager in [facility] and she has been told that she might need a heart cat heterization procedure for low LVEF. Admission Vitals: 160/100 mmHg, 102 bpm Admission Labs: Hb 11 BUN 30, creatinine 0.8, glucose 640, lactate 2.2, repeat 2.8, troponins were not elevated, NT-proBNP 8000, TSH 4.8, Admission EKG: EKG showed sinus tachycardia heart rate 105 bpm, low voltage complexes, poor R wave progression Imaging: CTA chest did not show any evidence of PE but did show subcutaneous edema suggestive of fluid overload situation, cardiomegaly At home she is on Lasix 40 mg daily, Jardiance 10 mg daily, Eliquis 5 mg twice daily, metoprolol 50 mg daily Progress note 01/24/2025 patient reports symptomatic improvement in urinary symptoms of shortness of breath and lower extremity edema BP 123/82, heart rate 80 Sodium 128 potassium 4.3 BUN 31, creatinine 1.10 glucose is better controlled but still elevated Lipid shows LDL LDL 101, TG 149, HDL 40, TSH 4.8 Free T41.9 A1c 16.2 PHYSICAL EXAMINATION: Neck: Brisk carotid upstroke, mild JVP Lungs: Diminished breath sounds with mild crackles audible in bilateral lung mcclellan Heart: Regular rate and rhythm, S1-S2, , no murmur or rub. Abdomen: Soft nontender, positive bowel sounds. Extremities: 1+ pitting edema bilateral extremity Neuro: Alert, oritented, no focal deficits. Detailed neuro exam was not performed. ASSESSMENT: # Acute CHF exacerbation, EF unknown # Severe hyperglycemia # Electrolyte imbalance with hyponatremia and hyperkalemia # Lactic acidosis # Poorly controlled type 2 diabetes, HbA1c 16.2 # Obesity # Dyslipidemia PLAN: Change Lasix to Bumex 1 mg p.o. daily, Aldactone 25 mg daily, continue Farxiga 10 mg daily Continue metoprolol XL 50 mg daily and losartan 25 mg daily, Lipitor 40 mg Obtain echocardiogram Further recommendations to follow For some reason she is on Eliquis 5 mg twice daily. Will continue for now. Request medical records from her primary senior lead project manager on saturday Objective - Vital Signs Vital signs: Vital Signs Temp 98.2 F 01/24/25 15:09 Pulse 80 01/24/25 15:09 Resp 16 01/24/25 15:09 BP 123/82 01/24/25 15:09 Pulse Ox 94 L 01/24/25 15:09 FiO2 Intake & Output 01/23/25 01/24/25 01/24/25 18:59 06:59 18:59 Intake Total 180 340 Output Total 800 1450 Balance 180 -800 -1110 Weight 69.853 kg 76.7 kg Intake: Oral 180 340 Output: Urine 800 1450 Other: Voiding Method Toilet Toilet # Voids 1 # Bowel Movements 1 1 - Labs CBC & Chem 7: 01/23/25 05:58 01/24/25 07:23 Labs: Abnormal Lab Results - Last 24 Hours (Table) 01/23/25 01/23/25 01/23/25 Range/Units 05:58 16:23 19:59 Sodium (137-145) mmol/L Chloride (98-107) mmol/L Carbon Dioxide (22-30) mmol/L BUN (7-17) mg/dL Creatinine (0.52-1.04) mg/dL Glucose (74-99) mg/dL POC Glucose (mg/dL) 181 H 198 H (70-110) mg/dL Hemoglobin A1c 16.2 H (<=6.0) % 01/24/25 01/24/25 01/24/25 Range/Units 06:27 07:23 11:27 Sodium 128 L (137-145) mmol/L Chloride 92 L (98-107) mmol/L Carbon Dioxide 32 H (22-30) mmol/L BUN 31 H (7-17) mg/dL Creatinine 1.10 H (0.52-1.04) mg/dL Glucose 299 H (74-99) mg/dL POC Glucose (mg/dL) 294 H 299 H (70-110) mg/dL Hemoglobin A1c (<=6.0) %
[2025-01-24 16:23] LABS: Glucose,Whole Blood 302 mg/dL (70-110)
[2025-01-24] MEDS: SPIRONOLACTONE 25 MG TAB PO SCH (17:01)
[2025-01-24] MEDS: ATORVASTATIN 40 MG TAB PO SCH (17:03)
[2025-01-24 20:27] LABS: Glucose,Whole Blood 307 mg/dL (70-110)
[2025-01-25 06:01] LABS: Glucose,Whole Blood 244 mg/dL (70-110)
[2025-01-25] MEDS: INSULIN GLARGINE (LANTUS) 100 UNIT/ML SYR SQ SCH (06:38)
[2025-01-25 07:14] LABS: African American GFR (CKD) 77 (>60 ml/min/1.73 sqM); Anion Gap 6 mmol/L; Blood Urea Nitrogen 33 mg/dL (7-17); Calcium 9.6 mg/dL (8.4-10.2); Carbon Dioxide 31 mmol/L (22-30); Chloride 91 mmol/L (98-107); Glucose 248 mg/dL (74-99); Non-African American GFR(CKD) 67 (>60 ml/min/1.73 sqM); Potassium 4.6 mmol/L (3.5-5.1); Sodium 128 mmol/L (137-145)
[2025-01-25] MEDS: BUMETANIDE 1 MG TAB PO SCH (09:08)
[2025-01-25] MEDS ORDERED: ALPRAZolam 0.5 MG TAB PO PRN (10:03)
[2025-01-25] MEDS ORDERED: ALPRAZolam 0.25 MG TAB PO PRN (10:03)
[2025-01-25] MEDS ORDERED: NITROGLYCERIN SL TABS 0.4 MG TAB SUBLINGUAL PRN (10:03)
--- NOTE | 2025-01-25 10:29 | P.PN ---
Subjective HISTORY OF PRESENT ILLNESS: 43-year-old female presented the hospital because of increased worsening dyspnea on exertion along with symptoms of orthopnea and paroxysmal nocturnal dyspnea. On admission she appeared volume overloaded and was noticed to be hyperglycemic cardiology was consulted for CHF management. She denies any symptoms of chest pain chest pressure. She reports that she follows up with a fabric worker leader in [facility] and she has been told that she might need a heart catheterization procedure for low LVEF. Admission Vitals: 160/100 mmHg, 102 bpm Admission Labs: Hb 11 BUN 30, creatinine 0.8, glucose 640, lactate 2.2, repeat 2.8, troponins were not elevated, NT-proBNP 8000, TSH 4.8, Admission EKG: EKG showed sinus tachycardia heart rate 105 bpm, low voltage complexes, poor R wave progression Imaging: CTA chest did not show any evidence of PE but did show subcutaneous edema suggestive of fluid overload situation, cardiomegaly At home she is on Lasix 40 mg daily, Jardiance 10 mg daily, Eliquis 5 mg twice daily, metoprolol 50 mg daily 01/25/2025 Patient examined this morning at the bedside. Patient currently denies chest pain or pressure. She denies shortness of breath. She has been transition to oral diuretics. Preliminary echo reveals ejection fraction around 20%. Patient states that she normally follows with a fabric worker leader in [place] however she no longer sees him in would like to establish care locally. PHYSICAL EXAM: VITAL SIGNS: Reviewed. GENERAL: Well-developed in no acute distress. NECK: Supple. No JVD or thyromegaly LUNGS: Respirations even and unlabored. Lungs essentially clear to auscultation bilaterally. HEART: Regular rate and rhythm. S1 and S2 heard. EXTREMITIES: Normal range of motion. No clubbing or cyanosis. Peripheral pulses intact. Trace bilateral lower extremity edema ASSESSMENT: Shortness of breath Acute on chronic heart failure with reduced EF Cardiomyopathy, ischemic versus nonischemic History of DVT, on Eliquis outpatient Hyperlipidemia Hyponatremia, likely chronic per patient Hyperkalemia, resolved Diabetes, uncontrolled, hemoglobin A1c 16.2 Obesity: BMI 30.6 History of CVA x 2 PLAN: Await final report of echocardiogram Discontinue losartan. Begin Entresto 24-26 mg twice a day Hold Eliquis. May resume tomorrow evening Continue aspirin, Lipitor, Bumex, Farxiga, metoprolol, and Aldactone N.p.o. at midnight Patient to undergo cardiac catheterization tomorrow with Dr. Silverio Further recommendations pending patient course Nurse practitioner note has been reviewed by physician. Signing provider agrees with the documented findings, assessment, and plan of care documented by TRIMMING INSPECTOR as a scribe. Objective - Vital Signs Vital signs: Vital Signs Temp 98.0 F 01/25/25 04:07 Pulse 98 01/25/25 08:30 Resp 16 01/25/25 08:30 BP 153/115 01/25/25 08:30 Pulse Ox 98 01/25/25 08:30 FiO2 Intake & Output 01/24/25 01/25/25 01/25/25 18:59 06:59 18:59 Intake Total 490 240 Output Total 2350 Balance -1860 240 Weight 76 kg Intake: Oral 490 240 Output: Urine 2350 Other: Voiding Method Toilet Toilet Toilet # Voids 1 # Bowel Movements 1 - Labs CBC & Chem 7: 01/23/25 05:58 01/25/25 05:55 Labs: Abnormal Lab Results - Last 24 Hours (Table) 01/24/25 01/24/25 01/24/25 Range/Units 11:27 16:21 20:26 Sodium (137-145) mmol/L Chloride (98-107) mmol/L Carbon Dioxide (22-30) mmol/L BUN (7-17) mg/dL Glucose (74-99) mg/dL POC Glucose (mg/dL) 299 H 302 H 307 H (70-110) mg/dL 01/25/25 01/25/25 Range/Units 05:55 06:00 Sodium 128 L (137-145) mmol/L Chloride 91 L (98-107) mmol/L Carbon Dioxide 31 H (22-30) mmol/L BUN 33 H (7-17) mg/dL Glucose 248 H (74-99) mg/dL POC Glucose (mg/dL) 244 H (70-110) mg/dL
[2025-01-25] MEDS: SACUBITRIL/VALSARTAN 24 MG-26 MG TABLET PO SCH (10:53)
--- NOTE | 2025-01-25 11:05 | P.CONS ---
History of Present Illness - Reason for Consult Consult date: 01/25/25 wound care - History of Present Illness This is a 38-year-old patient with past medical history significant for CHF and diabetes presenting with a nonhealing ulceration to the right anterior lower extremity. At this time the ulceration is epithelialized. There is no open ulceration. Patient does have edema noted to bilateral lower extremities. Review Of Systems: Constitutional: No fever, no chills, no night sweats. No weight change. No weakness, fatigue or lethargy. No daytime sleepiness. Integumentary:reports wounds, no lesions. No rash or pruritus. No unusual bruising. No change in hair or nails. Physical exam: General Appearance: Alert, cooperative, no distress, appears stated age. Skin: See HPI all other Skin color, texture, tugor normal, no rashes or lesions. Neurologic: Alert oriented x3 Assessment: 1. Nonhealing ulceration right lower extremity limited to skin breakdown resolved Plan: 1. Apply Art wrap for compression to bilateral lower extremities. Thank for the consultation any questions please contact the wound care center DNP note has been reviewed and discussed with Dr. Bean and the impression and plan of care has been directed as dictated. Past Medical History Past Medical History: Asthma, Heart Failure, CVA/TIA, Diabetes Mellitus, GI Bleed, Pneumonia, Seizure Disorder Additional Past Medical History / Comment(s): NIDDM type II, grand mal seizure and stroke once in 2016 and second stroke in 2021, last seizure October of 2024, lower GI bleed, mild diverticular dx, PCOS, bronchitis, pneumonia, migraines, allergic rhinitis. Kidney stones, last seizure 10/29/24-still has small bruise on back from falling r/t seizure, currently has pleural effusion bilat, gastroparesis, neuropathy, "leaky heart valve" History of Any Multi-Drug Resistant Organisms: MRSA, None Reported Year Discovered:: 2011 MDRO Source:: Lungs Past Surgical History: Section, Cholecystectomy, Tubal Ligation Additional Past Surgical History / Comment(s): colonoscopies, R groin mole removed then resected d/t abnormal cells-bening, kidney stones surgically removed, bilat cataracts removed, glaucoma sx, bilat retainal sx for bleeding, rt thoracentesis bilat at [facility] Past Anesthesia/Blood Transfusion Reactions: No Reported Reaction Past Psychological History: Anxiety Additional Psychological History / Comment(s): Pt resides with her 2 children. Pt is independent. She drives. Smoking Status: Never smoker Past Alcohol Use History: None Reported Additional Past Alcohol Use History / Comment(s): Patient is a lifelong nonsmok er. She denies any marijuana or street drug use. Past Drug Use History: None Reported - Past Family History Father Family Medical History: Cancer Additional Family Medical History / Comment(s): COLON, MELANOMA ON HIS CHEST AND HE ALSO HAS BENIGN BRAIN TUMORS 2, diabetes, pancreatic cancer. FATHER IS alive. Mother Family Medical History: Cancer, Dialysis Additional Family Medical History / Comment(s): MELANOMA THAT METASTASIZED TO T HE BRAIN- FROM AT AGE 49 YRS. Mother had an NV at age 34 with angioplasty at age 36 yrs and another NV, and history of diabetes. Patient has many aunts, uncles and nieces with diabetes on her mother's side. Brother(s) Family Medical History: Cancer Additional Family Medical History / Comment(s): Patient has one half-brother with kidney stones, full brother with no major medical problems. Patient has 1 sister with no major medical problems. Daughter(s) Additional Family Medical History / Comment(s): Patient has 2 daughters and her youngest daughter has history of seizure disorder. Patient has one son with no major medical problems. Medications and Allergies Home Medications Medication Instructions Recorded Confirmed Type Albuterol Inhaler [Ventolin Hfa 2 puff INHALATION RT-Q4H PRN 04/15/17 01/23/25 History Inhaler] HYDROcodone/APAP 10-325MG [[place] 1 tab PO TID PRN 01/14/18 01/23/25 History 10-325] Loratadine [Claritin] 10 mg PO DAILY 03/26/23 01/23/25 History levETIRAcetam [Keppra] 500 mg PO DAILY 08/29/23 01/23/25 History Cyclobenzaprine [Flexeril] 20 mg PO HS 11/11/23 01/23/25 History Ondansetron Odt [Zofran ODT] 4 mg PO TID PRN 04/06/24 01/23/25 History Albuterol Nebulized [Ventolin 2.5 mg INHALATION RT-QID PRN 11/04/24 01/23/25 History Nebulized] Apixaban [Eliquis] 5 mg PO BID 11/04/24 01/23/25 History Budesonide/Formoterol Fumarate 2 puff INHALATION RT-DAILY 11/04/24 01/23/25 History [Symbicort 160-4.5 Mcg Inhaler] Empagliflozin [Jardiance] 10 mg PO DAILY 11/04/24 01/23/25 History Furosemide [Lasix] 40 mg PO DAILY 11/04/24 01/23/25 History Metoprolol Tartrate [Lopressor] 50 mg PO DAILY 11/04/24 01/23/25 History Pantoprazole [Protonix] 40 mg PO DAILY 12/21/24 01/23/25 History Sodium Bicarbonate 325 mg PO DAILY 12/21/24 01/23/25 History Naproxen [Naprosyn] 500 mg PO BID PRN 12/31/24 01/23/25 History Cephalexin [Keflex] 500 mg PO Q6H 7 Days #28 cap 01/12/25 01/23/25 Rx Azithromycin [Zithromax Z Pack] See Taper PO DAILY 01/23/25 01/23/25 History Chlorhexidine Gluconate [Peridex] 15 ml PO BID 01/23/25 01/23/25 History Allergies Allergy/AdvReac Type Severity Reaction Status Date / Time Penicillins Allergy Nausea & Verified 01/23/25 10:48 Vomiting, rash codeine AdvReac Nausea & Verified 01/23/25 10:48 Vomiting morphine AdvReac Nausea & Verified 01/23/25 10:48 Vomiting Sulfa (Sulfonamide AdvReac Nausea & Verified 01/23/25 10:48 Antibiotics) Vomiting, rash tramadol AdvReac Per Verified 01/23/25 10:48 patient, cannot take with Keppra Physical Exam Vitals: Vital Signs Temp Pulse Resp BP Pulse Ox 01/25/25 08:30 98 16 153/115 98 01/25/25 04:07 98.0 F 91 16 129/83 97 01/25/25 01:56 92 01/24/25 23:43 92 18 128/86 96 01/24/25 20:00 98.0 F 89 16 115/79 94 L 01/24/25 15:09 98.2 F 80 16 123/82 94 L 01/24/25 13:27 20 95 01/24/25 13:26 100 01/24/25 11:46 100 20 143/97 99 Intake and Output 01/24/25 01/25/25 01/25/25 22:59 06:59 14:59 Intake Total 150 240 Output Total 900 Balance -750 240 Intake: Oral 150 240 Output: Urine 900 Other: Voiding Method Toilet Toilet Toilet # Voids 1 Weight 76 kg Results CBC & Chem 7: 01/23/25 05:58 01/25/25 05:55 Labs: Abnormal Lab Results - Last 24 Hours (Table) 01/24/25 01/24/25 01/24/25 Range/Units 11:27 16:21 20:26 Sodium (137-145) mmol/L Chloride (98-107) mmol/L Carbon Dioxide (22-30) mmol/L BUN (7-17) mg/dL Glucose (74-99) mg/dL POC Glucose (mg/dL) 299 H 302 H 307 H (70-110) mg/dL 01/25/25 01/25/25 Range/Units 05:55 06:00 Sodium 128 L (137-145) mmol/L Chloride 91 L (98-107) mmol/L Carbon Dioxide 31 H (22-30) mmol/L BUN 33 H (7-17) mg/dL Glucose 248 H (74-99) mg/dL POC Glucose (mg/dL) 244 H (70-110) mg/dL Assessment and Plan (1) Non-pressure ulcer of right lower extremity, limited to breakdown of skin Current Visit: Yes Status: Acute Code(s): L97.911 - NON-PRS CHR ULC UNSP PRT OF R LOW LEG LIMITED TO BRKDWN SKIN SNOMED Code(s): 93681807
[2025-01-25 11:26] LABS: Glucose,Whole Blood 316 mg/dL (70-110)
--- NOTE | 2025-01-25 11:41 | P.PN ---
Subjective 44-year-old female came in with complaints of shortness of breath orthopnea paroxysmal nocturnal dyspnea. Found to be in heart failure exacerbation patient has chronic diastolic dysfunction. Patient takes 40 mg of Lasix at home. Patient's echocardiogram in the past showed EF of around 60 to 65% this was done earlier this month. Patient had any fever chills nausea vomiting patient had a CT angio of the chest which did not show any pulmonary embolism and studies showed pulmonary edema. Patient blood sugars are also very high at 620 patient is only on Jardiance. Patient is supposed to be on Lantus which she has not been taking at home. Patient has elevated potassium of 5.8 as well. Patient received IV insulin after her blood sugars have come down to 400. Patient appears to be only on Premeal insulin 10 units 3 times a day and Lantus 12 units. Patient was started on IV Lasix here. Patient is also complaining of severe back pain for which patient is on Rembert. 01/24/2025 Patient has about a 250 of urine output patient is much less hypoxic today saturating 100% on 2 L patient will be weaned off oxygen. Patient is requesting Dilaudid for back pain will consult animated cartoons painter patient blood sugars are still high required 12 units of sliding scale insulin patient long- acting insulin will be increased to 30 units from 20 units. 01/25/2025 Patient blood sugars are still high patient will undergo cardiac authorization tomorrow. Patient recent echocardiogram showed ejection fraction of around 20%. Patient is transition to oral Lasix patient was started on 5 units 3 times daily with meals insulin will continue 30 units patient will remain will be n.p.o. tonight. Patient will also be on sliding scale insulin. All other review of systems are negative PHYSICAL EXAMINATION: GENERAL: The patient is alert and oriented x3, not in any acute distress. Well developed, well nourished. HEENT: Pupils are round and equally reacting to light. EOMI. No scleral icterus. No conjunctival pallor. Normocephalic, atraumatic. No pharyngeal erythema. No thyromegaly. CARDIOVASCULAR: S1 and S2 present. No murmurs, rubs, or gallops. PULMONARY: Chest is clear to auscultation, no wheezing or crackles. ABDOMEN: Soft, nontender, nondistended, normoactive bowel sounds. No palpable organomegaly. MUSCULOSKELETAL: No joint swelling or deformity. EXTREMITIES: No cyanosis, clubbing, extensive bilateral lower extremity edema NEUROLOGICAL: Gross neurological examination did not reveal any focal deficits. SKIN: No rashes. Patient has a small uninfected wound Assessment and plan -Congestive heart failure chronic diastolic dysfunction with acute exacerbation. Patient is switched to oral diuretics today. patient's oxygen requirements have come down - Acute hypoxic respiratory failure secondary to CHF exacerbation - Hyperglycemia due to noncompliance with medications increasing long-acting insulin to 20 units - Ruled out pulmonary embolism - Seizure disorder patient was resumed on antiseizure medications -Chronic back pain - Patient is on anticoagulation I believe is for atrial fibrillation although I do not see that in her history Objective - Vital Signs Vital signs: Vital Signs Temp 98.0 F 01/25/25 04:07 Pulse 98 01/25/25 08:30 Resp 16 01/25/25 08:30 BP 153/115 01/25/25 08:30 Pulse Ox 98 01/25/25 08:30 FiO2 Intake & Output 01/24/25 01/25/25 01/25/25 18:59 06:59 18:59 Intake Total 490 240 Output Total 2350 Balance -1860 240 Weight 76 kg Intake: Oral 490 240 Output: Urine 2350 Other: Voiding Method Toilet Toilet Toilet # Voids 1 # Bowel Movements 1 - Labs CBC & Chem 7: 01/23/25 05:58 01/25/25 05:55 Labs: Abnormal Lab Results - Last 24 Hours (Table) 01/24/25 01/24/25 01/25/25 Range/Units 16:21 20:26 05:55 Sodium 128 L (137-145) mmol/L Chloride 91 L (98-107) mmol/L Carbon Dioxide 31 H (22-30) mmol/L BUN 33 H (7-17) mg/dL Glucose 248 H (74-99) mg/dL POC Glucose (mg/dL) 302 H 307 H (70-110) mg/dL 01/25/25 01/25/25 Range/Units 06:00 11:24 Sodium (137-145) mmol/L Chloride (98-107) mmol/L Carbon Dioxide (22-30) mmol/L BUN (7-17) mg/dL Glucose (74-99) mg/dL POC Glucose (mg/dL) 244 H 316 H (70-110) mg/dL
--- NOTE | 2025-01-25 12:00 | CA ---
Transthoracic Echo Report Name: Estela Gilbert Age: 44 Gender: F : 1980 Exam Date: 01/25/2025 08:34 Exam Location: [place] [facility] Ht (in): 62 Wt (lb): 154 Ordering Physician: Clayton Silverio MD ([id number]) Attending/Referring Phys: Budget Record Clerk Josie Caal RDCS Procedure CPT: Indications: cardiomyopathy, chf Cardiac Hx: CHF, DM , CVA Technical Quality: Good Contrast 1: Definity Total Dose (mL): 2 Contrast 2: Total Dose (mL): MEASUREMENTS (Male / Female) Normal Values 2D ECHO LV Diastolic Diameter PLAX 4.1 cm 4.2 - 5.9 / 3.9 - 5.3 cm LV Systolic Diameter PLAX 3.9 cm IVS Diastolic Thickness 1.1 cm 0.6 - 1.0 / 0.6 - 0.9 cm LVPW Diastolic Thickness 1.2 cm 0.6 - 1.0 / 0.6 - 0.9 cm LV Relative Wall Thickness 0.6 RV Internal Dim ED PLAX 3.9 cm LA Systolic Diameter LX 4.1 cm 3.0 - 4.0 / 2.7 - 3.8 cm LV Diastolic Volume MOD BP 105.6 cm??? 67 - 155 / 56 - 104 cm??? LV Systolic Volume MOD BP 69.9 cm??? - 58 / 19 - 49 cm??? LV Ejection Fraction MOD BP 33.8 % >= 55 % LV Cardiac Index MOD BP 1936.5 cm???/min???m??? LV Diastolic Volume MOD 4C 104.7 cm??? LV Systolic Volume MOD 4C 72.3 cm??? LV Ejection Fraction MOD 4C 31.0 % LV Cardiac Index MOD 4C 1759.0 cm???/min???m??? LV Diastolic Length 4C 7.3 cm LV Systolic Length 4C 6.2 cm LV Diastolic Volume MOD 2C 100.4 cm??? LV Systolic Volume MOD 2C 62.7 cm??? LV Ejection Fraction MOD 2C 37.6 % LV Cardiac Index MOD 2C 2049.4 cm???/min???m??? LV Diastolic Length 2C 7.8 cm LV Systolic Length 2C 6.8 cm LA Volume 55.2 cm??? 18 - 58 / 22 - 52 cm??? LA Volume Index 31.2 cm???/m??? 16 - 28 cm???/m??? M-MODE Aortic Root Diameter MM 3.0 cm AV Cusp Separation MM 2.2 cm DOPPLER AV Peak Velocity 87.6 cm/s AV Peak Gradient 3.1 mmHg MV Area PHT 3.6 cm??? Mitral E Point Velocity 44.8 cm/s Mitral A Point Velocity 63.2 cm/s Mitral E to A Ratio 0.7 MV Deceleration Time 210.6 ms TR Peak Velocity 235.2 cm/s TR Peak Gradient 22.1 mmHg Right Ventricular Systolic Press 45.8 mmHg FINDINGS Left Ventricle Left ventricular ejection fraction is estimated at 20-25 %. Left ventricular cavity size normal. Mildly increased septal wall thickness. Mildly increased posterior wall thickness. Mildly increased left ventricular diastolic volume. Moderately increased left ventricular systolic volume. Severly decreased left ventricular ejection fraction. Right Ventricle Moderate right ventricular dilatation. Moderate pulmonary hypertension. Right ventricular systolic pressure estimated at 46 mm hg. Right Atrium Mild right atrial dilatation. No right atrial thrombus or mass seen. Left Atrium Mildly increased left atrial diameter. Mildly increased left atrial volume. Mildly increased left atrial area. No left atrial thrombus or mass present. Mitral Valve Structurally normal mitral valve. No evidence for mitral valve prolapse. No mitral stenosis. Trace mitral regurgitation. Aortic Valve Trileaflet aortic valve. Trace aortic regurgitation. Tricuspid Valve Structurally normal tricuspid valve. Moderate tricuspid regurgitation. Pulmonic Valve Structurally normal pulmonic valve. Trace pulmonic regurgitation. Pericardium Small pericardial effusion by LV Aorta Normal size aortic root and proximal ascending aorta. CONCLUSIONS Left ventricle is at upper limits of normal with a global decrease in contractility estimate ejection fraction of 25%. Right ventricle is mild to moderately dilated. Moderate pulmonary hypertension. Enlarged left atrium, mild mitral moderate tricuspid regurgitation trivial aortic insufficiency. Small pericardial effusion. Previewed by: Dr. Donna Melvin MD (Electronically Signed) Final Date: 25 Jan 2025 11:59
[2025-01-25] MEDS: INSULIN LISPRO (HumaLOG) 100 UNIT/ML 10 mL VL SQ SCH (12:30)
[2025-01-25 15:11] VITALS: BMI 30.6
[2025-01-25 17:12] LABS: Glucose,Whole Blood 307 mg/dL (70-110)
--- NOTE | 2025-01-25 17:28 | CT ---
EXAMINATION TYPE: CT lumbar spine wo con CT DLP: 1260.5 mGycm, Automated exposure control for dose reduction was used. DATE OF EXAM: 01/25/2025 5:05 PM COMPARISON: CT abdomen and pelvis 12/31/2024. CLINICAL INDICATION:Female, 44 years old with history of lower back pain; PHH, Chronic lower back alexa n, pain TECHNIQUE: Multiple axial images were obtained from the midportion of T11 through the sacroiliac david nts. Soft tissue and bone windows in coronal and sagittal planes were obtained and reviewed. Contrast used: none. Oral contrast used: none. FINDINGS: Alignment: There are 5 lumbar type vertebral bodies within normal alignment. Bone: No evidence of fracture is identified. Discs: T12-L1: No spinal canal or neural foraminal stenosis is identified. L1-L2: No spinal canal or neural foraminal stenosis is identified. L2-L3: No spinal canal or neural foraminal stenosis is identified. L3-L4: No spinal canal or neural foraminal stenosis is identified. L4-L5: Broad-based disc bulge with minimal effacement of the anterior thecal sac. No significant cent ral canal stenosis. No neural foraminal stenosis. L5-S1: No spinal canal or neural foraminal stenosis is identified. Other: Diffuse subcutaneous edema. IMPRESSION: 1. No evidence for spinal fracture. 2. Mild degenerative disc disease at L4-L5. No significant central canal or neural foraminal stenosis . 3. Diffuse subcutaneous edema. [facility], , 01/25/2025 5:25 PM
[2025-01-25 20:04] LABS: Glucose,Whole Blood 177 mg/dL (70-110)
[2025-01-26] MEDS: SODIUM CHLORIDE 0.9% 1,000 ML in EMPTY BAG 1 BAG IV SCH (01:27)
[2025-01-26] MEDS: ATORVASTATIN 80 MG TAB PO ONE (05:58)
[2025-01-26] MEDS: ASPIRIN 325 MG TAB PO ONE (05:58)
[2025-01-26 06:24] LABS: Glucose,Whole Blood 154 mg/dL (70-110)
[2025-01-26 07:18] LABS: African American GFR (CKD) 74 (>60 ml/min/1.73 sqM); Anion Gap 7 mmol/L; Blood Urea Nitrogen 37 mg/dL (7-17); Calcium 9.8 mg/dL (8.4-10.2); Carbon Dioxide 29 mmol/L (22-30); Chloride 96 mmol/L (98-107); Glucose 153 mg/dL (74-99); Non-African American GFR(CKD) 64 (>60 ml/min/1.73 sqM); Potassium 4.9 mmol/L (3.5-5.1); Sodium 132 mmol/L (137-145)
[2025-01-26] MEDS ORDERED: SACUBITRIL/VALSARTAN 24 MG-26 MG TABLET PO SCH (09:00)
[2025-01-26 11:18] LABS: Glucose,Whole Blood 201 mg/dL (70-110)
--- NOTE | 2025-01-26 11:41 | CDI ---
Documentation Clarification Form Date: 01/26/2025 11:36:34 AM From: Elly Lamb RN, CCDS Phone: [phone] Admit Date: 01/23/2025 07:01:00 AM Patient Name: Estela Gilbert Visit Number: [id number] Discharge Date: ATTENTION: The Clinical Documentation Specialists (CDI) and [facility] Coding Staff appreciate your assistance in clarifying documentation. Please respond to the clarification below the line at the bottom and electronically sign. The CDI & [facility] Coding staff will review the response and follow-up if needed. Please note: Queries are made part of the Legal Health Record. If you have any questions, please contact the author of this message via ITS. Doctor. Paul Kumar Conflicting documentation has been found in the medical record. As attending physician, please provide clarification. H/P and subsequent progress notes: -Congestive heart failure chronic diastolic dysfunction with acute exacerbation. 01/25 Cardiology progress note: Acute on chronic heart failure with reduce EF 25% History/Risk Factors: Diabetes Mellitus, Asthma, Heart Failure, Clinical Indicators: 43-year-old female presented the hospital because of increased worsening dyspnea on exertion along with symptoms of orthopnea and paroxysmal nocturnal dyspnea. Admission Labs: Hb 11 BUN 30, creatinine 0.8, glucose 640, lactate 2.2, repeat 2.8, troponins were not elevated, NT-proBNP 8000, TSH 4.8, 01/23 VS:*08:29) 159/106 102 100% 2/L NC 01/25 ECHO: Left ventricle is at upper limits of normal with a global decrease in contractility estimate ejection fraction of 25%. Right ventricle is mild to moderately dilated. Moderate pulmonary hypertension. Enlarged left atrium, mild mitral moderate tricuspid regurgitation trivial aortic insufficiency. Small pericardial effusion. Treatment: Cardiac /Telemetry Monitoring Entestro 24-26 MG BID Eliquis 5 MG PO BID, Bumex 1MG PO Daiily Toprol Xl 50MG PO Daily Aldactone 25 MG PO Daily Lasix 40 MG IV12 HR 01/23-01/24 DC Please clarify which diagnosis is most appropriate: [ ] Acute on chronic heart failure with reduce EF 25% [ ] Other (please specify) [ ] Unable to determine (Template Last Revised: November 2020) Acute on chronic heart failure with reduce EF 25% MTDD
--- NOTE | 2025-01-26 11:53 | P.PN ---
Subjective HISTORY OF PRESENT ILLNESS: 43-year-old female presented the hospital because of increased worsening dyspnea on exertion along with symptoms of orthopnea and paroxysmal nocturnal dyspnea. On admission she appeared volume overloaded and was noticed to be hyperglycemic cardiology was consulted for CHF management. She denies any symptoms of chest pain chest pressure. She reports that she follows up with a flower buncher or picker in [facility] and she has been told that she might need a heart catheterization procedure for low LVEF. Admission Vitals: 160/100 mmHg, 102 bpm Admission Labs: Hb 11 BUN 30, creatinine 0.8, glucose 640, lactate 2.2, repeat 2.8, troponins were not elevated, NT-proBNP 8000, TSH 4.8, Admission EKG: EKG showed sinus tachycardia heart rate 105 bpm, low voltage complexes, poor R wave progression Imaging: CTA chest did not show any evidence of PE but did show subcutaneous edema suggestive of fluid overload situation, cardiomegaly At home she is on Lasix 40 mg daily, Jardiance 10 mg daily, Eliquis 5 mg twice daily, metoprolol 50 mg daily 01/25/2025 Patient examined this morning at the bedside. Patient currently denies chest pain or pressure. She denies shortness of breath. She has been transition to oral diuretics. Preliminary echo reveals ejection fraction around 20%. Patient states that she normally follows with a flower buncher or picker in [place] however she no longer sees him in would like to establish care locally. 01/26/2025 Patient examined this morning the bedside. Patient currently denies chest pain or pressure. She denies shortness of breath. Patient states she feels nervous this morning regarding cardiac catheterization. Echocardiogram revealing ejection fraction 25%, moderate pulmonary hypertension, mild mitral regurgitation, moderate tricuspid regurgitation, trivial aortic insufficiency and small pericardial effusion PHYSICAL EXAM: VITAL SIGNS: Reviewed. GENERAL: Well-developed in no acute distress. NECK: Supple. No JVD or thyromegaly LUNGS: Respirations even and unlabored. Lungs essentially clear to auscultation bilaterally. HEART: Regular rate and rhythm. S1 and S2 heard. EXTREMITIES: Normal range of motion. No clubbing or cyanosis. Peripheral pulses intact. Trace bilateral lower extremity edema ASSESSMENT: Shortness of breath Acute on chronic heart failure with reduced EF Cardiomyopathy, 25% ischemic versus nonischemic History of DVT, on Eliquis outpatient Hyperlipidemia Hyponatremia, likely chronic per patient Hyperkalemia, resolved Diabetes, uncontrolled, hemoglobin A1c 16.2 Obesity: BMI 30.6 History of CVA x 2 PLAN: Hold Eliquis. May resume this evening postcardiac catheterization Continue aspirin, Lipitor, Bumex, Farxiga, metoprolol, Entresto and Aldactone Patient scheduled for cardiac catheterization today with Dr. Silverio Further recommendations pending patient course Nurse practitioner note has been reviewed by physician. Signing provider agrees with the documented findings, assessment, and plan of care documented by SECURITY ANALYST as a scribe. Objective - Vital Signs Vital signs: Vital Signs Temp 98.0 F 01/25/25 04:07 Pulse 88 01/26/25 03:44 Resp 18 01/26/25 03:44 BP 124/84 01/26/25 03:44 Pulse Ox 94 L 01/26/25 03:44 FiO2 Intake & Output 01/25/25 01/26/25 01/26/25 18:59 06:59 18:59 Intake Total 598 380 Output Total 900 Balance -302 380 Weight 76 kg 76.5 kg Intake: Intake, IV Titration 380 Amount Sodium Chloride 0.9% 1, 380 000 ml In Empty Bag 1 bag @ 1 ML/KG/HR 76 mls/hr IV .[id number] [facility] Rx#: [id number] Oral 598 Output: Urine 900 Other: Voiding Method Toilet Toilet # Voids 3 1 # Bowel Movements 3 - Labs CBC & Chem 7: 01/23/25 05:58 01/26/25 06:10 Labs: Abnormal Lab Results - Last 24 Hours (Table) 01/25/25 01/25/25 01/26/25 Range/Units 17:05 20:03 06:10 Sodium 132 L (137-145) mmol/L Chloride 96 L (98-107) mmol/L BUN 37 H (7-17) mg/dL Creatinine 1.05 H (0.52-1.04) mg/dL Glucose 153 H (74-99) mg/dL POC Glucose (mg/dL) 307 H 177 H (70-110) mg/dL 01/26/25 01/26/25 Range/Units 06:22 11:16 Sodium (137-145) mmol/L Chloride (98-107) mmol/L BUN (7-17) mg/dL Creatinine (0.52-1.04) mg/dL Glucose (74-99) mg/dL POC Glucose (mg/dL) 154 H 201 H (70-110) mg/dL
[2025-01-26] MEDS: HEPARIN SODIUM,PORCINE 10,000 UNIT in SODIUM CHLORIDE 0.9% 1,000 ML IRRIGATION PRN (11:56)
[2025-01-26] MEDS: HEPARIN SODIUM,PORCINE (1 ML) 2,500 UNIT in SODIUM CHLORIDE 0.9% 250 ML IRRIGATION PRN (11:56)
[2025-01-26] MEDS: IV FLUID CONTINUATION 1,000 ML IV ONE (11:56)
[2025-01-26] MEDS: fentaNYL (PF) 50 MCG/1 ML VIAL IVP ONE (12:09)
[2025-01-26] MEDS: LIDOCAINE 1% INJ 10MG/ML (20 ML MDV) SQ ONE (12:09)
[2025-01-26] MEDS: MIDAZOLAM 2 MG/2 ML VIAL IVP ONE (12:09)
[2025-01-26] MEDS: VERAPAMIL 2.5 MG/ML 2 ML AMP INTRAARTER ONE (12:10)
[2025-01-26] MEDS: HEPARIN SODIUM 1,000 UN/ML (10ML VL) IVP ONE (12:13)
[2025-01-26] MEDS: FLUMAZENIL 0.1 MG/ML 5 ML VIAL IVP ONE ×2 (12:27)
[2025-01-26] MEDS: NALOXONE 0.4 MG/ML 1 ML VIAL IVP ONE (12:27)
[2025-01-26] MEDS: PHENYLEPHRINE-0.9% NACL SYG 1,000 MCG/10 ML SYRINGE IVP ONE (12:28)
[2025-01-26] MEDS: IOPAMIDOL-370 100ML BTL INJ ONE (12:44)
[2025-01-26] MEDS ORDERED: RX INFO: IV CONTRAST WAS GIVEN 1 EACH MISC MISCELLANE PRN (13:10)
--- NOTE | 2025-01-26 13:10 | P.CARDCATH ---
Date of Procedure: 01/26/25 Description of Procedure: DIAGNOSTIC CORONARY ANGIOGRAPHY and LEFT HEART CATH REPORT PROCEDURES PERFORMED: Left heart catheterization Selective coronary angiography Moderate conscious sedation 38 mins [Ultrasound assisted] Right radial access INDICATION: Cardiomyopathy BRIEF HPI: 44-year-old female with fully controlled diabetes, hypertension dyslipidemia admitted with acute congestive heart failure exacerbation. Her echocardiogram showed an EF of 20% with globally reduced LV systolic function. For this she was scheduled for heart catheterization procedure. CONSENT: I have explained the procedural steps of above-mentioned procedures in layman's terms to the patient. I discussed the risks (including but not limited to stroke, emergent vascular or cardiac surgery or ), benefits and alternative therapies for the above-mentioned procedure. I discussed the risks of sedation/analgesia and blood product administration (if indicated). The patient has indicated understanding and acceptance of these risks. Conscious Sedation: Patient's ECG, heart rate, blood pressure, pulse oximetry were monitored throughout the duration of procedure under my direct supervision. [2] mg Versed and [50] mcg Fentanyl were used for induction of moderate conscious sedation. Total duration of moderate concious sedation 38 minutes. PROCEDURAL DETAILS: Patient was prepped and draped in sterile fashion. 1% lidocaine was infiltrated over the right radial artery. Right radial access was obtained via modified seldinger technique. [Ultrasound was used for radial access]. Medications: 5mg of verapamil was administed in the radial sheet. 4500 Units of Heparin was administed once the catheter reached the aortic root Wires and Catheter used: J wire was advanced under fluroscopy to get to aortic root. 5 martiniquais JR 4 diagnostic catheter was utilized obtain left ventricular pressure and pressure gradint across aortic valve. 5 martiniquais JR 4 diagnostic catheter was used to selectively engage the right coronary ostium. 5 martiniquais JL 3.5 diagnostic catheter was utilized to selectively engage the left coronary ostium. Angiographic images were reviewed in detail. Catheter and wire were removed. Radial sheet was flushed. The right radial sheath was removed and a TR band was placed. Patent hemostasis was achieved. The patient tolerated the procedure well. Patient was transported back to the post catheterization holding area in stable condition. TECHNICAL DETAILS Total radiation: 208 mGy Total fluro time: 8.2 minutes Total contrast used: Isovue [60 ml] Complications: During the procedure, patient became apneic after the sedation. Her sedation was reversed by giving flumazenil and Narcan. Thereafter patient was very restless which delayed the procedure. No other cardiovascular complications were encountered during the procedure. She was also noticed to be hypotensive for which 200 mcg of phenylephrine was given. Estimated Blood loss: less than 15 ml HEMODYNAMICS: Aortic Pressure: 80/50 mmHg. LV pressure: 80/10 mmHg. LVEDP 20 mmHg. There was no significant gradient across the aortic valve. SELECTIVE CORONARY ARTERIOGRAPHY: LEFT MAIN: The left main is short and large caliber vessel. It bifurcates into the LAD and circumflex. Left main appears angiographically normal. LEFT ANTERIOR DESCENDING CORONARY ARTERY: Proximal LAD has long tubular 80 to 90% disease. Mid LAD has 80% diffuse tubular disease. Distal LAD appears to be underfilled. Diagonal 1 and diagonal 2 are small caliber vessels and appears to have diffuse 50 to 60% disease. LEFT CIRCUMFLEX CORONARY ARTERY: LCx is nondominant. It is a large-caliber vessel. Proximal LCx appears angiographically patent. Mid LCx has 50% diffuse disease. Distal LCx has mild elevated irregularities 30%. OM1 is very small and disease in the ostium, OM 2 is 2 mm vessel and has 70 to 80% disease in ostium and proximal segment. OM 3 is 2 mm and has mild diffuse disease. RIGHT CORONARY ARTERY: Dominant vessel. Carsey is moderate caliber. Proximal RCA is mild disease. Junction of proximal and mid RCA has 60% tubular disease. Mid and distal RCA appears patent. Distal RCA gives rise to PDA and PL branches. Distal PL branch gives collaterals to the distal LAD which has competitive flow. IMPRESSION: 80 to 90% tubular proximal and mid LAD stenosis 50% diffuse disease mid and distal LCx 60% tubular proximal RCA Elevated LVEDP Dilated ischemic cardiomyopathy Type 2 diabetes PLAN: CT surgery evaluation I would recommend CT surgery over PCI for this complicated anatomy especially consideration of type 2 diabetes and cardiomyopathy. If a poor candidate for CT surgery, consider Impella assisted complex proximal and mid LAD PCI and IFR assessment of RCA Max tolerated GDMT, aspirin, Lipitor, SGLT2, Entresto, metoprolol, Aldactone. Performing Physician Clayton Silverio MD, FACC, RPVI Thank you for allowing [facility] to participate in this patient's care. Feel free to reach out in case of any followup questions.
[2025-01-26 13:55] LABS: Glucose,Whole Blood 174 mg/dL (70-110)
[2025-01-26] MEDS: SODIUM CHLORIDE 0.9% 1,000 ML IV SCH (14:19)
[2025-01-26] MEDS: SODIUM CHLORIDE 0.9% 500 ML 500 ML IV ONE (14:19)
--- NOTE | 2025-01-26 15:08 | P.PAINPG ---
Objective - Vital Signs Vital signs: Vital Signs Temp 97.7 F 01/26/25 08:50 Pulse 77 01/26/25 11:25 Resp 16 01/26/25 11:25 BP 102/64 01/26/25 11:25 Pulse Ox 93 L 01/26/25 11:25 FiO2 Intake & Output 01/25/25 01/26/25 01/26/25 18:59 06:59 18:59 Intake Total 598 380 400 Output Total 900 Balance -302 380 400 Weight 76 kg 76.5 kg Intake: IV 400 Intake, IV Titration 380 Amount Sodium Chloride 0.9% 1, 380 000 ml In Empty Bag 1 bag @ 1 ML/KG/HR 76 mls/hr IV .[id number] [facility] Rx#: [id number] Oral 598 Output: Urine 900 Other: Voiding Method Toilet Toilet Toilet # Voids 3 1 # Bowel Movements 3 - Labs CBC & Chem 7: 01/23/25 05:58 01/26/25 06:10 Labs: Abnormal Lab Results - Last 24 Hours (Table) 01/25/25 01/25/25 01/26/25 Range/Units 17:05 20:03 06:10 Sodium 132 L (137-145) mmol/L Chloride 96 L (98-107) mmol/L BUN 37 H (7-17) mg/dL Creatinine 1.05 H (0.52-1.04) mg/dL Glucose 153 H (74-99) mg/dL POC Glucose (mg/dL) 307 H 177 H (70-110) mg/dL 01/26/25 01/26/25 01/26/25 Range/Units 06:22 11:16 13:53 Sodium (137-145) mmol/L Chloride (98-107) mmol/L BUN (7-17) mg/dL Creatinine (0.52-1.04) mg/dL Glucose (74-99) mg/dL POC Glucose (mg/dL) 154 H 201 H 174 H (70-110) mg/dL PQRS Measure Charge Sheet Comment: HISTORY OF PRESENT ILLNESS: A 44 yr old inpatient female w 2 male companions at side presents today w severe acute LBP secondary to L4-L5 radiculopathy and spondylosis for evaluation. Pt states pain level is provoked at 9 /10 in intensity, constant, localized in the lumbar spine, predominantly axial, achy in character w occasional shooting pain towards the BL knees. Pain is provoked by any movement. Pain is alleviated by medications, repositioning and rest . Pt states Ruskin is not effective, that only Dilaudid is. She also was drowsy during examination and did not appear to be in severe pain. Will continue current medication regimen at this time. Past Medical History: Asthma, Heart Failure, CVA/TIA, Diabetes Mellitus, GI Bleed, Pneumonia, Seizure Disorder Additional Past Medical History / Comment(s): NIDDM type II, grand mal seizure and stroke once in 2016 and second stroke in 2021, last seizure October of 2024, lower GI bleed, mild diverticular dx, PCOS, bronchitis, pneumonia, migraines, allergic rhinitis. Kidney stones, last seizure 10/29/24-still has small bruise on back from falling r/t seizure, currently has pleural effusion bilat, gastroparesis, neuropathy, "leaky heart valve" History of Any Multi-Drug Resistant Organisms: MRSA, None Reported Year Discovered:: 2011 MDRO Source:: Lungs Past Surgical History: Section, Cholecystectomy, Tubal Ligation Additional Past Surgical History / Comment(s): colonoscopies, R groin mole r emoved then resected d/t abnormal cells-bening, kidney stones surgically removed, bilat cataracts removed, glaucoma sx, bilat retainal sx for bleeding, rt thoracentesis bilat at [facility] Past Anesthesia/Blood Transfusion Reactions: No Reported Reaction Past Psychological History: Anxiety Additional Psychological History / Comment(s): Pt resides with her 2 children. Pt is independent. She drives. Smoking Status: Never smoker Past Alcohol Use History: None Reported Additional Past Alcohol Use History / Comment(s): Patient is a lifelong nonsmoker. She denies any marijuana or street drug use. Past Drug Use History: None Reported - Past Family History Father Family Medical History: Cancer Additional Family Medical History / Comment(s): COLON, MELANOMA ON HIS CHEST AND HE ALSO HAS BENIGN BRAIN TUMORS 2, diabetes, pancreatic cancer. FATHER IS alive. Mother Family Medical History: Cancer, Dialysis Additional Family Medical History / Comment(s): MELANOMA THAT METASTASIZED TO THE BRAIN- FROM AT AGE 49 YRS. Mother had an MN at age 34 with angioplasty at age 36 yrs and another MN, and history of diabetes. Patient has many aunts, uncles and nieces with diabetes on her mother's side. Brother(s) Family Medical History: Cancer Additional Family Medical History / Comment(s): Patient has one half-brother with kidney stones, full brother with no major medical problems. Patient has 1 sister with no major medical problems. Daughter(s) Additional Family Medical History / Comment(s): Patient has 2 daughters and her youngest daughter has history of seizure disorder. Patient has one son with no major medical problems. REVIEW OF ORGAN SYSTEMS: CONSTITUTIONAL: No fevers or chills. No recent weight loss. NEUROLOGICAL: + numbness and tingling along the distal extremities. No seizure disorders or headaches. MUSCULOSKELETAL: + pain PSYCHIATRIC: Denies current depression or suicidal thoughts. Physical Examinations : Constitutional : Cooperative , not in acute distress . Neurologic : Cranial nerve II to XII intact. No focal neurological deficits. Psychiatric : alert & oriented x 3. Matching mood & appropriate affect. Judgment & insight intact. Musculoskeletal : Cervical Spine Motor strength in the deltoid and biceps: Normal right side. Normal Left side Motor strength biceps and the wrist extensors: Normal right side . Normal left side Motor strength in the triceps muscle: Normal right side. Normal left side Deep tendon reflexes: Normal at the biceps. Normal at Brachioradialis. Normal at triceps Vertebral body tenderness to deep palpation over Cervical facet loading test: positive bilaterally Spurling test: positive bilaterally Neck distraction test: positive bilaterally Jarvis sign: positive bilaterally Lumbar spine Motor strength lower extremities ,thigh and legs 5/5 Right side , 5/5 Left side Deep tendon reflexes : Normal Knee Jerk. Normal Ankle Jerk Vertebral body tenderness over Parks Test positive Lumbar facet Loading Test: positive Right / positive Left Range of motion of the lumbar spine Flexion 30 degrees, extension 10 degrees Straight Leg Raise test: Left/ Right positive at degrees Star test: positive right / positive left. Severe tenderness over the Sacroiliac joint on the Right / Left sides Gaenslen test: positive bilaterally Seated flexion test: positive bilaterally. Sacral spine : Severe tenderness over the Sacroiliac joint: right side / left side Range of motion: Flexion of the lumbar spine <60 degrees Range of motion: Extension of the lumbar spine <20 degrees Gaenslen's Test positive Star test: positive right side / left side Thigh Thrust Test Sacral Thrust Test Imaging: CT non contrast lumbar spine from 01/25/25 reviewed Assessment/ Plan : L4-L5 radiculopathy Recommendation of medication management. Would benefit from an KUSUM L4-L5 though pt is disinterested at this time. Pt requested Dilaudid for pain management, however in light that she does not appear to be in intractable pain, will continue the current medication regimen. All questions answered. I have spent greater than 30 minutes on patient care today. Dr Black was available by phone for the evaluation of this patient. The time was used to review the medical records including relevant urine studies and Prescription history (MAPs), review of the available imaging, evaluation and examination of the patient, coordination of care with the medical staff and if applicable refe rring physicians, as well as creation of the medical record - Pain Location Generalized Non-Pharmacological Interventions: Darkened Room, Distraction, Position/Reposition Pharmacological Interventions: Discuss Pain Med Options Pain Comment: Dr. Guzman was just made aware of patient's pain during rounds. He states he will not order any additional pain medications at this time and states to continue with current medication regimen. He gave orders to consult pain management. PQRS Narrative: Smoking Status Former smoker Blood Pressure [Left Arm] 102/64 Blood Pressure 131/89 Pain Intensity [Generalized] 0 Pain Intensity 7 Pain Scale Used Numeric (1 - 10) Scale Used Numeric (1 - 10) Home Medications: Ambulatory Orders Albuterol Inhaler [Ventolin Hfa Inhaler] 2 puff INHALATION RT-Q4H PRN 04/15/17 HYDROcodone/APAP 10-325MG [Ruskin 10-325] 1 tab PO TID PRN 01/14/18 Loratadine [Claritin] 10 mg PO DAILY 03/26/23 levETIRAcetam [Keppra] 500 mg PO DAILY 08/29/23 Cyclobenzaprine [Flexeril] 20 mg PO HS 11/11/23 Ondansetron Odt [Zofran ODT] 4 mg PO TID PRN 04/06/24 Albuterol Nebulized [Ventolin Nebulized] 2.5 mg INHALATION RT-QID PRN 11/04/24 Apixaban [Eliquis] 5 mg PO BID 11/04/24 Budesonide/Formoterol Fumarate [Symbicort 160-4.5 Mcg Inhaler] 2 puff INHALATION RT-DAILY 11/04/24 Empagliflozin [Jardiance] 10 mg PO DAILY 11/04/24 Furosemide [Lasix] 40 mg PO DAILY 11/04/24 Metoprolol Tartrate [Lopressor] 50 mg PO DAILY 11/04/24 Pantoprazole [Protonix] 40 mg PO DAILY 12/21/24 Sodium Bicarbonate 325 mg PO DAILY 12/21/24 Naproxen [Naprosyn] 500 mg PO BID PRN 12/31/24 Cephalexin [Keflex] 500 mg PO Q6H 7 Days #28 cap 01/12/25 Azithromycin [Zithromax Z Pack] See Taper PO DAILY 01/23/25 Chlorhexidine Gluconate [Peridex] 15 ml PO BID 01/23/25 Controlled Substance Measures - Controlled Substance Measures Is patient prescribed a controlled substance at discharge?: No
--- NOTE | 2025-01-26 15:20 | P.GSCN ---
History of Present Illness Consult date: 01/26/25 Reason for Consult: Coronary artery disease, recommendations for surgical revascularization Requesting physician: Clayton Silverio History of present illness: This is a 44-year-old female who follows outpatient with Dr. 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 She has a previous medical history of heart failure with reduced ejection fraction, stroke x 2, uncontrolled diabetes mellitus with hyperglycemia, DVT on Eliquis for anticoagulation outpatient, pneumonia, seizure, PCOS, previous tobacco dependence, medical noncompliance, and family history of premature coronary artery disease with mot her who had heart attack at 34 years old. This patient presented to [facility] emergency room on January 23 with complaints of progressive shortness of breath as well as generalized edema primarily in her lower extremities, symptoms of which have been off and on since September although have gotten progressively worse in the last few days. States that she has had some mild intermittent chest pain as well. In the emergency room EKG revealed sinus tachycardia. Chest x-ray demonstrated low lung volumes and cardiomegaly. Chest CTA confirmed cardiomegaly with bilateral effusions and no pulmonary embolism. Lab work revealed WBC 5.48, hemoglobin 11.6, D-dimer 1.35, sodium 121, potassium 5.8, creatinine 0.86, hemoglobin A1c 16.2% with blood sugars in the 5 and 600s, lactic acid 2.2, AST 45, negative troponin, TSH 4.8 with free T4 1.93, and BNP 8120. She was admitted for evaluation and treatment with consultation placed to cardiology for CHF exacerbation. Transthoracic echocardiogram was completed yesterday revealing reduced left ventricular systolic function with EF 20 to 25%, moderate pulmonary hypertension, moderate tricuspid regurgitation, trace to mild mitral regurgitation as well as trace aortic insufficiency. She was recommended to undergo heart catheterization which was completed today by Dr. Silverio revealing proximal to mid LAD stenosis 80 to 90%, mid to distal circumflex stenosis 50% with proximal RCA 60% stenosis. Due to these findings consultation was placed to Dr. Joseph from cardiothoracic surgery for surgical revascularization recommendations. Review of Systems Review of systems was completed and was negative except as noted - Cardiovascular Reports as per HPI, Reports chest pain, Reports edema, Reports leg edema, Reports shortness of breath Past Medical History Past Medical History: Asthma, Coronary Artery Disease (CAD), Heart Failure, CVA/TIA, Diabetes Mellitus, Deep Vein Thrombosis (DVT), GI Bleed, Hyperlipidemia, Pneumonia, Seizure Disorder Additional Past Medical History / Comment(s): NIDDM type II, grand mal seizure and stroke once in 2016 and second stroke in 2021, last seizure October of 2024, lower GI bleed, mild diverticular dx, PCOS, bronchitis, pneumonia, migraines, allergic rhinitis. Kidney stones, last seizure 10/29/24-still has small bruise on back from falling r/t seizure, currently has pleural effusion bilat, gastroparesis, neuropathy, "leaky heart valve" History of Any Multi-Drug Resistant Organisms: MRSA, None Reported Year Discovered:: 2011 MDRO Source:: Lungs Past Surgical History: Section, Cholecystectomy, Tubal Ligation Additional Past Surgical History / Comment(s): colonoscopies, R groin mole removed then resected d/t abnormal cells-bening, kidney stones surgically removed, bilat cataracts removed, glaucoma sx, bilat retainal sx for bleeding, bilateral thoracentesis at [facility] in September 2024 Past Anesthesia/Blood Transfusion Reactions: No Reported Reaction Past Psychological History: Anxiety Additional Psychological History / Comment(s): Pt resides with her 2 children. Pt is independent. She drives. Smoking Status: Former smoker Past Alcohol Use History: None Reported Past Drug Use History: None Reported Additional History: States she quit smoking in 2002 - Past Family History Father Family Medical History: Cancer Additional Family Medical History / Comment(s): COLON, MELANOMA ON HIS CHEST AND HE ALSO HAS BENIGN BRAIN TUMORS 2, diabetes, pancreatic cancer. FATHER IS alive. Mother Family Medical History: Cancer, Dialysis Additional Family Medical History / Comment(s): MELANOMA THAT METASTASIZED TO THE BRAIN- FROM AT AGE 49 YRS. Mother had an HI at age 34 with angioplasty at age 36 yrs and another HI, and history of diabetes. Patient has many aunts, uncles and nieces with diabetes on her mother's side. Brother(s) Family Medical History: Cancer Additional Family Medical History / Comment(s): Patient has one half-brother with kidney stones, full brother with no major medical problems. Patient has 1 sister with no major medical problems. Daughter(s) Additional Family Medical History / Comment(s): Patient has 2 daughters and her youngest daughter has history of seizure disorder. Patient has one son with no major medical problems. Medications and Allergies Home Medications Medication Instructions Recorded Confirmed Type Albuterol Inhaler [Ventolin Hfa 2 puff INHALATION RT-Q4H PRN 04/15/17 01/23/25 History Inhaler] HYDROcodone/APAP 10-325MG [[facility] 1 tab PO TID PRN 01/14/18 01/23/25 History 10-325] Loratadine [Claritin] 10 mg PO DAILY 03/26/23 01/23/25 History levETIRAcetam [Keppra] 500 mg PO DAILY 08/29/23 01/23/25 History Cyclobenzaprine [Flexeril] 20 mg PO HS 11/11/23 01/23/25 History Ondansetron Odt [Zofran ODT] 4 mg PO TID PRN 04/06/24 01/23/25 History Albuterol Nebulized [Ventolin 2.5 mg INHALATION RT-QID PRN 11/04/24 01/23/25 His tory Nebulized] Apixaban [Eliquis] 5 mg PO BID 11/04/24 01/23/25 History Budesonide/Formoterol Fumarate 2 puff INHALATION RT-DAILY 11/04/24 01/23/25 History [Symbicort 160-4.5 Mcg Inhaler] Empagliflozin [Jardiance] 10 mg PO DAILY 11/04/24 01/23/25 History Furosemide [Lasix] 40 mg PO DAILY 11/04/24 01/23/25 History Metoprolol Tartrate [Lopressor] 50 mg PO DAILY 11/04/24 01/23/25 History Pantoprazole [Protonix] 40 mg PO DAILY 12/21/24 01/23/25 History Sodium Bicarbonate 325 mg PO DAILY 12/21/24 01/23/25 History Naproxen [Naprosyn] 500 mg PO BID PRN 12/31/24 01/23/25 History Cephalexin [Keflex] 500 mg PO Q6H 7 Days #28 cap 01/12/25 01/23/25 Rx Azithromycin [Zithromax Z Pack] See Taper PO DAILY 01/23/25 01/23/25 History Chlorhexidine Gluconate [Peridex] 15 ml PO BID 01/23/25 01/23/25 History Allergies Allergy/AdvReac Type Severity Reaction Status Date / Time Penicillins Allergy Nausea & Verified 01/23/25 10:48 Vomiting, rash codeine AdvReac Nausea & Verified 01/23/25 10:48 Vomiting morphine AdvReac Nausea & Verified 01/23/25 10:48 Vomiting Sulfa (Sulfonamide AdvReac Nausea & Verified 01/23/25 10:48 Antibiotics) Vomiting, rash tramadol AdvReac Per Verified 01/23/25 10:48 patient, cannot take with Keppra Surgical - Exam Vital Signs Temp Pulse Resp BP Pulse Ox 98.5 F 108 H 26 H 175/112 95 01/23/25 05:09 01/23/25 05:09 01/23/25 05:09 01/23/25 05:09 01/23/25 05:09 CONSTITUTIONAL: Sleepy but awake and alert, appears comfortable, cooperative, well-developed, well-nourished, no pain, no acute distress EYES: Pupils equal, round, reactive to light, normal ocular movement ENT: Moist mucous membranes without oral lesions present NECK: No masses, no bruits, trachea midline RESPIRATORY: Lungs sounds diminished in the bases bilaterally. Respirations even, nonlabored. Currently on room air with oxygen saturation 93%. Strong cough CARDIOVASCULAR: S1, S2 present. Regular rate and rhythm, sinus rhythm on telemetry. Palpable peripheral pulses bilaterally. Generalized edema present. No calf pain or tenderness noted GASTROINTESTINAL: Abdomen soft, nontender, nondistended without masses or organomegaly noted. There is no rebound or guarding present. Active bowel sounds present 4 quadrants. GENITOURINARY: Deferred INTEGUMENTARY: Skin is warm and dry NEUROLOGIC: Cranial nerves II through XII intact, normal coordination, no obvious motor or sensory deficits, speech is normal MUSKULOSKELETAL: Able to move all extremities, strength equal bilaterally PSYCHIATRIC: Alert and oriented to person place and time, appropriate affect, intact judgment and insight CLINICAL FRAILTY SCORE 4 Results - Labs 01/23/25 05:58 01/26/25 06:10 Abnormal Lab Results - Last 24 Hours (Table) 01/25/25 01/25/25 01/26/25 Range/Units 17:05 20:03 06:10 Sodium 132 L (137-145) mmol/L Chloride 96 L (98-107) mmol/L BUN 37 H (7-17) mg/dL Creatinine 1.05 H (0.52-1.04) mg/dL Glucose 153 H (74-99) mg/dL POC Glucose (mg/dL) 307 H 177 H (70-110) mg/dL 01/26/25 01/26/25 01/26/25 Range/Units 06:22 11:16 13:53 Sodium (137-145) mmol/L Chloride (98-107) mmol/L BUN (7-17) mg/dL Creatinine (0.52-1.04) mg/dL Glucose (74-99) mg/dL POC Glucose (mg/dL) 154 H 201 H 174 H (70-110) mg/dL Diabetes panel 01/26/25 Range/Units 06:10 Sodium 132 L (137-145) mmol/L Potassium 4.9 (3.5-5.1) mmol/L Chloride 96 L (98-107) mmol/L Carbon Dioxide 29 (22-30) mmol/L BUN 37 H (7-17) mg/dL Creatinine 1.05 H (0.52-1.04) mg/dL Glucose 153 H (74-99) mg/dL Calcium 9.8 (8.4-10.2) mg/dL Calcium panel 01/26/25 Range/Units 06:10 Calcium 9.8 (8.4-10.2) mg/dL Pituitary panel 01/26/25 Range/Units 06:10 Sodium 132 L (137-145) mmol/L Potassium 4.9 (3.5-5.1) mmol/L Chloride 96 L (98-107) mmol/L Carbon Dioxide 29 (22-30) mmol/L BUN 37 H (7-17) mg/dL Creatinine 1.05 H (0.52-1.04) mg/dL Glucose 153 H (74-99) mg/dL Calcium 9.8 (8.4-10.2) mg/dL Adrenal panel 01/26/25 Range/Units 06:10 Sodium 132 L (137-145) mmol/L Potassium 4.9 (3.5-5.1) mmol/L Chloride 96 L (98-107) mmol/L Carbon Dioxide 29 (22-30) mmol/L BUN 37 H (7-17) mg/dL Creatinine 1.05 H (0.52-1.04) mg/dL Glucose 153 H (74-99) mg/dL Calcium 9.8 (8.4-10.2) mg/dL - Imaging Chest x-ray: report reviewed, image reviewed CT scan - chest: report reviewed, image reviewed EKG: image reviewed Additional studies: Heart catheterization films reviewed with Dr. Joseph, reviewed results of echocardiogram Assessment and Plan Assessment: Coronary artery disease Acute on chronic heart failure with reduced ejection fraction, EF 20 to 25% Ischemic cardiomyopathy Shortness of breath, secondary to above Hyponatremia, hyperkalemia present on admission Significant hyperglycemia present on admission History of heart failure with reduced ejection fraction, Stroke x 2 Uncontrolled diabetes mellitus with hyperglycemia, hemoglobin A1c 16.2% DVT on Eliquis for anticoagulation outpatient Pneumonia Seizure PCOS Previous tobacco dependence, reports cessation in 2002 Medical noncompliance Family history of premature coronary artery disease with mother who had heart attack at 34 years old Plan: The patient was seen and examined lying in bed on the cardiac stepdown unit in no acute distress. Blood pressure is a bit low. The patient is very sleepy but does open her eyes and answers questions. The usual perioperative course of open-heart surgery was discussed with the patient and her son at the bedside, risks and benefits were reviewed, all questions were answered. The patient is currently listed as a no code and does confirm she does not want any CPR or ventilator management, however family feels this is because she does not want to be a burden on them. We will initiate preoperative testing, once completed wi ll calculate STS risk score and discuss with the patient. She has indicated she does not think she wants surgery, again family feels that is because she does not want to be a burden on them. At this time patient does need to recover from her acute CHF exacerbation, needs better blood pressure control. Discussed the need for medication compliance to promote healing and reduce risk of infection. Case was discussed with Dr. Joseph who recommended preoperative testing, decision regarding surgery to be made after testing completed assuming patient becomes agreeable to surgery. Recommend maximizing goal-directed therapy for heart failure and coronary disease. More recommendations to follow. Thank you Dr. Silverio for this consult, we will continue to follow along and make further recommendations as appropriate. I have personally seen and examined the patient, performed the documentation and the assessment and plan as written. Number of minutes spent on the visit: 30. REYES Arthur
[2025-01-26 16:22] LABS: Glucose,Whole Blood 155 mg/dL (70-110)
--- NOTE | 2025-01-26 16:28 | US ---
EXAMINATION TYPE: US carotid duplex BILAT DATE OF EXAM: 01/26/2025 COMPARISON: 11/13/16 CLINICAL INDICATION: Female, 44 years old with history of preop cardiac surgery; preop Additional History: Z01.81- Pre-operative exam TECHNIQUE: Grayscale, color Doppler and spectral Doppler evaluation of the bilateral carotid systems and vertebral arteries. Indirect Doppler criteria was utilized. FINDINGS: EXAM MEASUREMENTS: RIGHT: Peak Systolic Velocity (PSV) cm/sec ----- Right CCA: 46.7 ----- Right ICA: 48.8 ----- Right ECA: 52.4 ICA/CCA ratio: 1.0 RIGHT: End Diastole cm/sec ----- Right CCA: 18.2 ----- Right ICA: 24.6 ----- Right ECA: 6.1 LEFT: Peak Systolic Velocity (PSV) cm/sec ----- Left CCA: 53.1 ----- Left ICA: 55.2 ----- Left ECA: 48.8 ICA/CCA ratio: 1.0 LEFT: End Diastole cm/sec ----- Left CCA: 20.4 ----- Left ICA: 30.3 ----- Left ECA: 6.8 VERTEBRALS (direction of flow): Right Vertebral: Antegrade Left Vertebral: Antegrade Rhythm: Normal MARKET RESEARCH INTERN NOTES: Mild plaque seen in left bulb Color Doppler imaging shows patency with blood flow throughout the carotid artery. Spectral waveforms are within normal limits. IMPRESSION: No hemodynamically significant internal carotid artery stenosis on either side. Criteria for Assigning % of Stenosis / Diameter reduction (Estimation based on the indirect measurements of the internal carotid artery velocities (ICA PSV). 1. Normal (no stenosis)=ICA PSV < 180 cm/s: ratio < 2.0: ICA EDV<40 cm/s. 2. Less than 50% stenosis=ICA PSV < 180 cm/s: ratio < 2.0: ICA EDV<40 cm/s. 3. 50 to 69% stenosis=ICA PSV of 180 to 230 cm/s: ration 2.0 ? 4.0: ICA EDV 40-100 cm/s. PSV 125-180 cm/sec and ICA/CCA PSV Ratio ? 2.0 is also consistent with 50-69% stenosis 4. Greater than 70% stenosis to near occlusion= ICA PSV > 230 cm/s: ratio > 4.0: ICA EDV > 100 cm/s. 5. Near occlusion= ICA PSV velocities may be low or undetectable: variable ratio and ICA EDV. 6. Total occlusion=unable to detect flow. [facility], Workstation: [email or web address], 01/26/2025 4:26 PM
--- NOTE | 2025-01-26 16:30 | US ---
EXAMINATION TYPE: US vein mapping BILAT DATE OF EXAM: 01/26/2025 4:17 PM COMPARISON: NONE CLINICAL INDICATION: Female, 44 years old with history of preop open heart surgery; preop, Preop- Car diac Surgery TECHNIQUE: Grayscale and color Doppler imaging of the lower extremity venous system. SIDE PERFORMED: Bilateral FINDINGS: DUPLEX FINDINGS: Greater Saphenous: Color flow seen Lesser Saphenous: Color flow seen Measurements in mm: Right Greater Saphenous: Groin: 9.2 x 9.1 mm High Thigh: 6.0 x 4.5 mm Mid Thigh: 4.9 x 4.1 mm Above Knee: 5.5 x 3.9 mm Knee: 5.2 x 4.8 mm Below Knee: 3.9 x 3.1 mm Mid Calf: 3.5 x 2.8 mm At Ankle: 4.8 x 2.9 mm Left Greater Saphenous: Groin: 7.7 x 5.5 mm High Thigh: 5.8 x 4.4 mm Mid Thigh: 5.6 x 3.4 mm Above Knee: 4.8 x 3.6 mm Knee: 5.1 x 3.4 mm Below Knee: 2.1 x 1.6 mm Mid Calf: 4.5 x 3.1 mm At Ankle: 2.9 x 2.3 mm Slightly limited due to diffuse subcutaneous edema bilaterally. IMPRESSION: 1. No evidence for occlusion. 2. GSV measurements listed above. 3. Performing surgeon to determine viability as conduit. [facility], , 01/26/2025 4:28 PM
--- NOTE | 2025-01-26 16:31 | US ---
EXAMINATION TYPE: Pre-Operative Non-Invasive Evaluation of the hand for Potential Radial Artery Jaime , Measurements only DATE OF EXAM: 01/26/2025 4:17 PM CLINICAL INDICATION: Female, 44 years old with history of measurements only; preop, Preop- Cardiac Che rgery TECHNIQUE:Grayscale and color Doppler imaging of the radial artery(s) SIDE PERFORMED: Left FINDINGS: Dominant hand: Right Duplex Findings: Radial Artery: Color flow seen Measurements in mm, transverse view: Left Radial: Proximal: 1.9 x 1.6 mm Mid: 2.0 x 1.7 mm Distal: not seen due to IV and ID bracelet. IMPRESSION: 1. No evidence for vascular occlusion however the distal aspect of the left radial artery is not vis ualized due to limitations described above. 2. Measurements as described above. [facility], , 01/26/2025 4:29 PM
[2025-01-26] MEDS: BUMETANIDE 1 MG TAB PO ONE (18:27)
[2025-01-26 19:59] LABS: Glucose,Whole Blood 214 mg/dL (70-110)
[2025-01-26] MEDS: APIXABAN 5 MG TAB PO SCH (21:01)
[2025-01-27 06:25] LABS: Glucose,Whole Blood 308 mg/dL (70-110)
[2025-01-27 06:44] LABS: Basophils # (A) 0.07 10*3/uL (0.00-0.10); Basophils % (A) 1.4 %; Eosinophils # (A) 0.16 10*3/uL (0.04-0.35); Eosinophils % (A) 3.3 %; HCT 38.5 % (37.2-46.3); HGB 11.5 g/dL (12.0-15.0); Lymphocytes # (A) 1.04 10*3/uL (0.90-5.00); Lymphocytes % (A) 21.5 %; MCH 23.7 pg (27.0-32.0); MCHC 29.9 g/dL (32.0-37.0); MCV 79.2 fL (80.0-97.0); Mean Platelet Volume 9.4 fL (9.5-12.2); Monocytes # (A) 0.54 10*3/uL (0.20-1.00); Monocytes % (A) 11.2 %; Neutrophils # (A) 3.02 10*3/uL (1.80-7.70); Neutrophils % (A) 62.4 %; Platelet Count 259 10*3/uL (140-440); RBC 4.86 10*6/uL (4.10-5.20); WBC 4.84 10*3/uL (4.50-10.00)
[2025-01-27 06:58] LABS: African American GFR (CKD) 75 (>60 ml/min/1.73 sqM); Anion Gap 6 mmol/L; Blood Urea Nitrogen 42 mg/dL (7-17); Calcium 9.1 mg/dL (8.4-10.2); Carbon Dioxide 24 mmol/L (22-30); Chloride 98 mmol/L (98-107); Glucose 266 mg/dL (74-99); Non-African American GFR(CKD) 65 (>60 ml/min/1.73 sqM); Potassium 5.2 mmol/L (3.5-5.1); Sodium 128 mmol/L (137-145)
[2025-01-27 07:06] LABS: NT-Pro-B-Type Natriuretic Pept 2850 pg/mL
--- NOTE | 2025-01-27 08:22 | XR ---
EXAMINATION TYPE: XR chest 1V portable DATE OF EXAM: 01/27/2025 6:53 AM COMPARISON: 01/23/2025 CLINICAL INDICATION: Female, 44 years old with history of heart failure, , FINDINGS: Heart mildly enlarged. Interstitial/vascular density. Ongoing patchy retrocardiac and left basilar op acity with small left pleural effusion. IMPRESSION: Similar mild CHF with pulmonary vascular congestion. Unchanged small left pleural effusion with adjac ent atelectasis and/or consolidation. [facility], Workstation: [email or web address], 01/27/2025 8:20 AM
[2025-01-27 10:50] LABS: Hepatitis A Antibody IgM Nonreactive (Nonreactive); Hepatitis B Core IgM Nonreactive (Nonreactive); Hepatitis B Surface Antigen Nonreactive (Nonreactive); Hepatitis C IgG Antibody Nonreactive (Nonreactive)
[2025-01-27 11:06] LABS: Glucose,Whole Blood 216 mg/dL (70-110)
--- NOTE | 2025-01-27 11:58 | P.PN ---
Subjective HISTORY OF PRESENT ILLNESS: 43-year-old female presented the hospital because of increased worsening dyspnea on exertion along with symptoms of orthopnea and paroxysmal nocturnal dyspnea. On admission she appeared volume overloaded and was noticed to be hyperglycemic cardiology was consulted for CHF management. She denies any symptoms of chest pain chest pressure. She reports that she follows up with a director funds development in [facility] and she has been told that she might need a heart catheterization procedure for low LVEF. Admission Vitals: 160/100 mmHg, 102 bpm Admission Labs: Hb 11 BUN 30, creatinine 0.8, glucose 640, lactate 2.2, repeat 2.8, troponins were not elevated, NT-proBNP 8000, TSH 4.8, Admission EKG: EKG showed sinus tachycardia heart rate 105 bpm, low voltage complexes, poor R wave progression Imaging: CTA chest did not show any evidence of PE but did show subcutaneous edema suggestive of fluid overload situation, cardiomegaly At home she is on Lasix 40 mg daily, Jardiance 10 mg daily, Eliquis 5 mg twice daily, metoprolol 50 mg daily 01/25/2025 Patient examined this morning at the bedside. Patient currently denies chest pain or pressure. She denies shortness of breath. She has been transition to oral diuretics. Preliminary echo reveals ejection fraction around 20%. Patient states that she normally follows with a director funds development in [place] however she no longer sees him in would like to establish care locally. 01/26/2025 Patient examined this morning the bedside. Patient currently denies chest pain or pressure. She denies shortness of breath. Patient states she feels nervous this morning regarding cardiac catheterization. Echocardiogram revealing ejection fraction 25%, moderate pulmonary hypertension, mild mitral regurgitation, moderate tricuspid regurgitation, trivial aortic insufficiency and small pericardial effusion 01/27/2025 Patient is status postcardiac catheterization yesterday with Dr. Silverio revealing 80 to 90% tubular proximal and mid LAD stenosis, 50% diffuse disease mid and distal circumflex, 60% tubular proximal RCA stenosis. CT surgery was consulted for evaluation. Patient currently denies any chest pain or pressure. She denies any shortness of breath. She reports having black spots in her right visual field that started after her cardiac catheterization. She states she has never had this in the past. Denies any speech issues or peripheral weakness. PHYSICAL EXAM: VITAL SIGNS: Reviewed. GENERAL: Well-developed in no acute distress. NECK: Supple. No JVD or thyromegaly LUNGS: Respirations even and unlabored. Lungs essentially clear to auscultation bilaterally. HEART: Regular rate and rhythm. S1 and S2 heard. EXTREMITIES: Normal range of motion. No clubbing or cyanosis. Peripheral pulses intact. Trace bilateral lower extremity edema ASSESSMENT: Shortness of breath Acute on chronic heart failure with reduced EF Cardiomyopathy, 25% ischemic Status post cardiac catheterization revealing triple-vessel coronary artery disease Black spots in visual field post cath, rule out TIA/CVA History of DVT, on Eliquis outpatient Hyperlipidemia Hyponatremia, likely chronic per patient Hyperkalemia, resolved Diabetes, uncontrolled, hemoglobin A1c 16.2 Obesity: BMI 30.6 History of CVA x 2 PLAN: Continue Eliquis, Lipitor, Bumex, metoprolol, Farxiga, Entresto, and Aldactone Add aspirin [address] of the brain. Consult neurology. CT surgery following. Await further recommendations. CABG versus PCI versus medical management. Further recommendations pending patient course Nurse practitioner note has been reviewed by physician. Signing provider agrees with the documented findings, assessment, and plan of care documented by [employer] as a scribe. Objective - Vital Signs Vital signs: Vital Signs Temp 98.1 F 01/27/25 04:00 Pulse 92 01/27/25 04:00 Resp 18 01/27/25 04:00 BP 112/77 01/27/25 04:00 Pulse Ox 96 01/27/25 04:00 FiO2 Intake & Output 01/26/25 01/27/25 01/27/25 18:59 06:59 18:59 Intake Total 518 240 Balance 518 240 Weight 80.6 kg Intake: IV 400 Oral 118 240 Other: Voiding Method Toilet Toilet # Voids 0 2 - Labs CBC & Chem 7: 01/27/25 06:04 01/27/25 06:04 Labs: Abnormal Lab Results - Last 24 Hours (Table) 01/26/25 01/26/25 01/26/25 Range/Units 11:16 13:53 16:21 Hgb (12.0-15.0) g/dL MCV (80.0-97.0) fL MCH (27.0-32.0) pg MCHC (32.0-37.0) g/dL MPV (9.5-12.2) fL Sodium (137-145) mmol/L Potassium (3.5-5.1) mmol/L BUN (7-17) mg/dL Glucose (74-99) mg/dL POC Glucose (mg/dL) 201 H 174 H 155 H (70-110) mg/dL 01/26/25 01/27/25 01/27/25 Range/Units 19:58 06:04 06:04 Hgb 11.5 L (12.0-15.0) g/dL MCV 79.2 L (80.0-97.0) fL MCH 23.7 L (27.0-32.0) pg MCHC 29.9 L (32.0-37.0) g/dL MPV 9.4 L (9.5-12.2) fL Sodium 128 L (137-145) mmol/L Potassium 5.2 H (3.5-5.1) mmol/L BUN 42 H (7-17) mg/dL Glucose 266 H (74-99) mg/dL POC Glucose (mg/dL) 214 H (70-110) mg/dL 01/27/25 Range/Units 06:24 Hgb (12.0-15.0) g/dL MCV (80.0-97.0) fL MCH (27.0-32.0) pg MCHC (32.0-37.0) g/dL MPV (9.5-12.2) fL Sodium (137-145) mmol/L Potassium (3.5-5.1) mmol/L BUN (7-17) mg/dL Glucose (74-99) mg/dL POC Glucose (mg/dL) 308 H (70-110) mg/dL
--- NOTE | 2025-01-27 12:43 | CT ---
EXAMINATION TYPE: CT brain wo con DATE OF EXAM: 01/27/2025 12:34 PM COMPARISON: 12/21/2024 CLINICAL INDICATION: Female, 44 years old with history of s/p cath, black spots in vision, r/o cva, s /p heart cath, black spots in vision rt eye, r/o cva., TECHNIQUE: Examination was done in axial plane without intravenous contrast. Coronal and sagittal r econstructions performed. CT DLP: 1098.4 mGycm, Automated exposure control for dose reduction was used. FINDINGS: There is no evidence of acute intracranial hemorrhage, acute ischemic changes, mass, mass-effect, or extra-axial fluid collection. There is no effacement of cerebral sulci or basal subarachnoid cister ns. There is no hydrocephalus. There is no midline shift. Lea-white matter distinction is preserv ed. Mild patchy white matter hypodensity suggests in the left palma radiata remains unchanged. Normal variant persistent CSP redemonstrated. Trace mucosal thickening right sphenoid sinus. Slight rightward nasal septal deviation. Mastoid air c ells well pneumatized. Orbits and globes appear intact. IMPRESSION: No acute intracranial abnormality seen. Similar mild patchy burden of chronic small vessel ischemic d isease. [facility], , 01/27/2025 12:40 PM
--- NOTE | 2025-01-27 13:40 | PN ---
PROGRESS NOTE DATE OF SERVICE: 01/26/2025 SUBJECTIVE: This 44-year-old woman who was admitted with CHF exacerbation, also had significant coronary artery disease including triple-vessel disease and Cardiology recommended CT Surgery evaluation. The patient is being closely monitored. PHYSICAL EXAMINATION: VITAL SIGNS: Pulse is 77, blood pressure n respirations 16. CHEST: Few scattered rhonchi and crackles. ABDOMEN: Soft. NERVOUS SYSTEM: No focal deficit. LABORATORY DATA: Reviewed. ASSESSMENT: 1. Status post cardiac catheterization showing three-vessel coronary artery disease. 2. Significant congestive heart failure exacerbation. 3. Possible ischemic cardiomyopathy. 4. Seizure disorder. RECOMMENDATIONS AND DISCUSSION: I recommend to continue current medications and symptomatic treatment. CT Surgery evaluation. Continue with antiplatelet medication and rest of medications. Prognosis guarded. Further recommendations to follow. Repeat labs in the morning. MMODL / IJN: [id number] / MTDD
--- NOTE | 2025-01-27 14:55 | P.PN ---
Subjective Progress Note Date: 01/27/25 Principal diagnosis: Coronary artery disease, acute on chronic heart failure with reduced ejection fraction, ischemic cardiomyopathy, hyponatremia, hyperkalemia, significant hyperglycemia present on admission. History of heart failure with reduced ejection fraction, stroke x 2, uncontrolled diabetes mellitus with hyperglycemia, DVT on Eliquis for anticoagulation outpatient, pneumonia, seizure, PCOS, previous tobacco dependence, medical noncompliance, and family history of premature coronary artery disease with mother who had heart attack at 34 years old The patient was seen and examined with Dr. Banks. She was sitting up at the bedside with daughter present on phone. Denies any pain or shortness of breath at this time. We did discuss revascularization with stent vs open heart surgery. We discussed that surgery is not an option at this time as she is too high risk, but once her heart failure is medically optimized and her blood sugars are under better control we can revisit surgery as an option. If more urgent revascularization is needed would recommend angioplasty. Patient would like to think about it. Will discuss with cardiology. Objective - Vital Signs Vital signs: Vital Signs Temp 97.2 F L 01/27/25 10:05 Pulse 86 01/27/25 12:20 Resp 16 01/27/25 12:20 BP 137/84 01/27/25 12:20 Pulse Ox 98 01/27/25 12:20 FiO2 Intake & Output 01/26/25 01/27/25 01/27/25 18:59 06:59 18:59 Intake Total 518 358 Balance 518 358 Weight 80.6 kg Intake: IV 400 Oral 118 358 Other: Voiding Method Toilet Toilet Toilet # Voids 0 2 - Exam CONSTITUTIONAL: Awake and alert, appears comfortable, no pain, no acute distress RESPIRATORY: Lungs sounds diminished in the bases bilaterally. Respirations even, nonlabored. Currently on room air with oxygen saturation 98%. Strong cough CARDIOVASCULAR: S1, S2 present. Regular rate and rhythm, sinus rhythm on telemetry. Palpable peripheral pulses bilaterally. Generalized edema present. No calf pain or tenderness noted GASTROINTESTINAL: Abdomen soft, nontender, nondistended without masses or organomegaly noted. There is no rebound or guarding present. Active bowel sounds present 4 quadrants. GENITOURINARY: Continues to void INTEGUMENTARY: Skin is warm and dry NEUROLOGIC: Cranial nerves II through XII intact MUSKULOSKELETAL: Able to move all extremities, strength equal bilaterally PSYCHIATRIC: Alert and oriented to person place and time, appropriate affect, intact judgment and insight - Allied health notes Allied health notes reviewed: nursing - Labs CBC & Chem 7: 01/27/25 06:04 01/27/25 06:04 Labs: Abnormal Lab Results - Last 24 Hours (Table) 01/26/25 01/26/25 01/27/25 Range/Units 16:21 19:58 06:04 Hgb 11.5 L (12.0-15.0) g/dL MCV 79.2 L (80.0-97.0) fL MCH 23.7 L (27.0-32.0) pg MCHC 29.9 L (32.0-37.0) g/dL MPV 9.4 L (9.5-12.2) fL Sodium (137-145) mmol/L Potassium (3.5-5.1) mmol/L BUN (7-17) mg/dL Glucose (74-99) mg/dL POC Glucose (mg/dL) 155 H 214 H (70-110) mg/dL 01/27/25 01/27/25 01/27/25 Range/Units 06:04 06:24 10:59 Hgb (12.0-15.0) g/dL MCV (80.0-97.0) fL MCH (27.0-32.0) pg MCHC (32.0-37.0) g/dL MPV (9.5-12.2) fL Sodium 128 L (137-145) mmol/L Potassium 5.2 H (3.5-5.1) mmol/L BUN 42 H (7-17) mg/dL Glucose 266 H (74-99) mg/dL POC Glucose (mg/dL) 308 H 216 H (70-110) mg/dL - Imaging and Cardiology Chest x-ray: report reviewed, image reviewed Assessment and Plan Assessment: Coronary artery disease Acute on chronic heart failure with reduced ejection fraction, EF 20 to 25% Ischemic cardiomyopathy Shortness of breath, secondary to above Hyponatremia, hyperkalemia present on admission Significant hyperglycemia present on admission History of heart failure with reduced ejection fraction, Stroke x 2 Uncontrolled diabetes mellitus with hyperglycemia, hemoglobin A1c 16.2% DVT on Eliquis for anticoagulation outpatient Pneumonia Seizure PCOS Previous tobacco dependence, reports cessation in 2002 Medical noncompliance Family history of premature coronary artery disease with mother who had heart attack at 34 years old Plan: Recommend continuing to maximize goal-directed therapy for heart failure and coronary disease Dr. Banks discussed case with Dr. Dorothea Piedra to discuss PCI vs future open heart with patient Recommend better blood sugar control, patient should utilize endocrinology. States endocrinology in the [place] area does not take her insurance, supposed to be following with endocrine in [place], does admit she does not check her blood sugars but she does have insulin at home which she does not use since starting Jardiance Will place our contact information on patient's discharge plan if she opts for surgical revascularization after blood sugar control and recovery from acute heart failure Will sign off. Please call us with any further questions
[2025-01-27] MEDS ORDERED: TEMAZEPAM 15 MG CAP PO PRN (16:04)
[2025-01-27] MEDS: ASPIRIN 81 MG PO SCH (16:08)
[2025-01-27 16:14] LABS: Glucose,Whole Blood 117 mg/dL (70-110)
[2025-01-27 20:40] LABS: Glucose,Whole Blood 194 mg/dL (70-110)
[2025-01-27] MEDS: HYDROmorphone 0.5 MG/0.5 ML SYRINGE IVP PRN (20:47)
[2025-01-28 01:08] VITALS: RESP 16
[2025-01-28 06:04] LABS: Glucose,Whole Blood 238 mg/dL (70-110)
[2025-01-28] MEDS: ALBUTEROL NEBULIZED 2.5 MG/3 ML INHALATION PRN (07:47)
[2025-01-28 07:49] LABS: Basophils # (A) 0.08 10*3/uL (0.00-0.10); Basophils % (A) 1.7 %; Eosinophils # (A) 0.28 10*3/uL (0.04-0.35); Eosinophils % (A) 5.8 %; HCT 41.1 % (37.2-46.3); HGB 12.3 g/dL (12.0-15.0); Lymphocytes # (A) 0.82 10*3/uL (0.90-5.00); MCH 23.8 pg (27.0-32.0); MCHC 29.9 g/dL (32.0-37.0); MCV 79.5 fL (80.0-97.0); Mean Platelet Volume 9.5 fL (9.5-12.2); Monocytes # (A) 0.53 10*3/uL (0.20-1.00); Neutrophils # (A) 3.09 10*3/uL (1.80-7.70); Neutrophils % (A) 64.3 %; Platelet Count 306 10*3/uL (140-440); RBC 5.17 10*6/uL (4.10-5.20); RDW 17.8 % (11.5-14.5); WBC 4.81 10*3/uL (4.50-10.00)
[2025-01-28 08:08] LABS: African American GFR (CKD) 87 (>60 ml/min/1.73 sqM); Anion Gap 5 mmol/L; Blood Urea Nitrogen 33 mg/dL (7-17); Calcium 9.5 mg/dL (8.4-10.2); Carbon Dioxide 31 mmol/L (22-30); Chloride 97 mmol/L (98-107); Glucose 222 mg/dL (74-99); Non-African American GFR(CKD) 75 (>60 ml/min/1.73 sqM); Potassium 4.7 mmol/L (3.5-5.1); Sodium 133 mmol/L (137-145)
--- NOTE | 2025-01-28 10:16 | PN ---
PROGRESS NOTE DATE OF SERVICE: 01/27/2025 SUBJECTIVE: This 44-year-old woman is admitted with CHF, possibly secondary ischemic cardiomyopathy, is undergoing preop testing. No chest pain, no palpitation. OBJECTIVE: VITAL SIGNS: Pulse is 87, blood pressure 126/83, and respirations 18. CHEST: Few scattered rhonchi. ABDOMEN: Soft. NERVOUS SYSTEM: Nonfocal. LABORATORY DATA: Reviewed. ASSESSMENT: 1. Status post cardiac catheterization, showing 3-vessel disease. 2. Congestive heart failure with possible ischemic cardiomyopathy. 3. Seizure disorder. 4. Hyponatremia, mild. 5. Anemia. RECOMMENDATION: Continue current medications. Symptomatic treatment. Repeat labs. Otherwise, closely follow up with Cardiology prior to surgery. Prognosis extremely guarded because of multiple complex medical issues. Further recommendations to follow. MMODL / IJN: [id number] /
--- NOTE | 2025-01-28 10:59 | P.PN ---
Subjective HISTORY OF PRESENT ILLNESS: 43-year-old female presented the hospital because of increased worsening dyspnea on exertion along with symptoms of orthopnea and paroxysmal nocturnal dyspnea. On admission she appeared volume overloaded and was noticed to be hyperglycemic cardiology was consulted for CHF management. She denies any symptoms of chest pain chest pressure. She reports that she follows up with a parking enforcement officer in [facility] and she has been told that she might need a heart catheterization procedure for low LVEF. Admission Vitals: 160/100 mmHg, 102 bpm Admission Labs: Hb 11 BUN 30, creatinine 0.8, glucose 640, lactate 2.2, repeat 2.8, troponins were not elevated, NT-proBNP 8000, TSH 4.8, Admission EKG: EKG showed sinus tachycardia heart rate 105 bpm, low voltage complexes, poor R wave progression Imaging: CTA chest did not show any evidence of PE but did show subcutaneous edema suggestive of fluid overload situation, cardiomegaly At home she is on Lasix 40 mg daily, Jardiance 10 mg daily, Eliquis 5 mg twice daily, metoprolol 50 mg daily 01/25/2025 Patient examined this morning at the bedside. Patient currently denies chest pain or pressure. She denies shortness of breath. She has been transition to oral diuretics. Preliminary echo reveals ejection fraction around 20%. Patient states that she normally follows with a parking enforcement officer in [place] however she no longer sees him in would like to establish care locally. 01/26/2025 Patient examined this morning the bedside. Patient currently denies chest pain or pressure. She denies shortness of breath. Patient states she feels nervous this morning regarding cardiac catheterization. Echocardiogram revealing ejection fraction 25%, moderate pulmonary hypertension, mild mitral regurgitation, moderate tricuspid regurgitation, trivial aortic insufficiency and small pericardial effusion 01/27/2025 Patient is status postcardiac catheterization yesterday with Dr. Silverio revealing 80 to 90% tubular proximal and mid LAD stenosis, 50% diffuse disease mid and distal circumflex, 60% tubular proximal RCA stenosis. CT surgery was consulted for evaluation. Patient currently denies any chest pain or pressure. She denies any shortness of breath. She reports having black spots in her right visual field that started after her cardiac catheterization. She states she has never had this in the past. Denies any speech issues or peripheral weakness. 01/28/2025 Patient examined this morning at bedside. Patient currently denies any chest pain or pressure. She denies shortness of breath. She states that the black spot she was seen in her right visual field is significantly improved today. She underwent CT of the brain yesterday which was negative for CVA. PHYSICAL EXAM: VITAL SIGNS: Reviewed. GENERAL: Well-developed in no acute distress. NECK: Supple. No JVD or thyromegaly LUNGS: Respirations even and unlabored. Lungs essentially clear to auscultation bilaterally. HEART: Regular rate and rhythm. S1 and S2 heard. EXTREMITIES: Normal range of motion. No clubbing or cyanosis. Peripheral pulses intact. Trace bilateral lower extremity edema ASSESSMENT: Shortness of breath Acute on chronic heart failure with reduced EF Cardiomyopathy, 25% ischemic Status post cardiac catheterization revealing triple-vessel coronary artery disease Black spots in visual field post cath, rule out TIA/CVA History of DVT, on Eliquis outpatient Hyperlipidemia Hyponatremia, likely chronic per patient Hyperkalemia, resolved Diabetes, uncontrolled, hemoglobin A1c 16.2 Obesity: BMI 30.6 History of CVA x 2 PLAN: Continue aspirin, Eliquis, Lipitor, Bumex, metoprolol, Farxiga, Entresto, and Aldactone Await neurology evaluation Patient was evaluated by CT surgery and was found to be high risk at this time. Discussed options with patient including PCI versus outpatient reevaluation for CABG after she has recovered from acute issues and has had tighter glycemic control. Patient has unsure what she would like to do at this time. Dr. Piedra to review films again this afternoon and will make further recommendations Further recommendations pending patient course Nurse practitioner note has been reviewed by physician. Signing provider agrees with the documented findings, assessment, and plan of care documented by [employer] as a scribe. Objective - Vital Signs Vital signs: Vital Signs Temp 97.4 F L 01/28/25 08:10 Pulse 99 01/28/25 08:10 Resp 16 01/28/25 08:10 BP 160/103 01/28/25 08:10 Pulse Ox 96 01/28/25 08:10 FiO2 21 01/28/25 07:50 Intake & Output 01/27/25 01/28/25 01/28/25 18:59 06:59 18:59 Intake Total 558 240 Balance 558 240 Weight 79.3 kg Intake: Oral 558 240 Other: Voiding Method Toilet Toilet # Voids 2 2 - Labs CBC & Chem 7: 01/28/25 06:54 01/28/25 06:54 Labs: Abnormal Lab Results - Last 24 Hours (Table) 01/27/25 01/27/25 01/27/25 Range/Units 10:59 16:12 20:38 MCV (80.0-97.0) fL MCH (27.0-32.0) pg MCHC (32.0-37.0) g/dL Lymphocytes # (0.90-5.00) 10*3/uL Sodium (137-145) mmol/L Chloride (98-107) mmol/L Carbon Dioxide (22-30) mmol/L BUN (7-17) mg/dL Glucose (74-99) mg/dL POC Glucose (mg/dL) 216 H 117 H 194 H (70-110) mg/dL 01/28/25 01/28/25 01/28/25 Range/Units 06:02 06:54 06:54 MCV 79.5 L (80.0-97.0) fL MCH 23.8 L (27.0-32.0) pg MCHC 29.9 L (32.0-37.0) g/dL Lymphocytes # 0.82 L (0.90-5.00) 10*3/uL Sodium 133 L (137-145) mmol/L Chloride 97 L (98-107) mmol/L Carbon Dioxide 31 H (22-30) mmol/L BUN 33 H (7-17) mg/dL Glucose 222 H (74-99) mg/dL POC Glucose (mg/dL) 238 H (70-110) mg/dL Microbiology - Last 24 Hours (Table) 01/27/25 06:30 Nasal Screen MRSA/MSSA - Final Nasal Swab
[2025-01-28 11:31] LABS: Glucose,Whole Blood 227 mg/dL (70-110)
[2025-01-28] MEDS ORDERED: HEPARIN SODIUM 1,000 UN/ML (10ML VL) IV PRN (12:47)
[2025-01-28] MEDS ORDERED: NITROGLYCERIN SL TABS 0.4 MG TAB SUBLINGUAL PRN (12:48)
[2025-01-28] MEDS ORDERED: ALPRAZolam 0.25 MG TAB PO PRN (12:48)
[2025-01-28] MEDS ORDERED: ALPRAZolam 0.5 MG TAB PO PRN (12:48)
[2025-01-28 13:50] LABS: INR 1.1 (<1.2); Partial Thromboplastin Time 23.8 sec (22.0-30.0); Prothrombin Time 12.1 sec (10.0-12.5)
[2025-01-28 17:00] LABS: Glucose,Whole Blood 184 mg/dL (70-110)
[2025-01-28] MEDS: HEPARIN SOD,PORK IN 0.45% NACL 25,000 UNIT in 0.45% NACL 1 250ML.BAG IV SCH (20:25)
[2025-01-28 20:39] LABS: Glucose,Whole Blood 109 mg/dL (70-110)
--- NOTE | 2025-01-29 01:51 | PN ---
PROGRESS NOTE DATE OF SERVICE: 01/28/2025 SUBJECTIVE: This 44-year-old woman was admitted three-vessel disease. Cardiology is planning tentative procedure tomorrow. PHYSICAL EXAMINATION: VITAL SIGNS: Pulse is 90, blood pressure n, respiratory rate 16. CHEST: Clear to auscultation. CARDIOVASCULAR: S1, S2. ABDOMEN: Soft. LABORATORY DATA: Reviewed. ASSESSMENT: 1. Status post cardiac catheterization revealed three-vessel disease. 2. Congestive heart failure with possible ischemic cardiomyopathy. 3. Seizure disorder. 4. Mild hyponatremia. 5. Anemia. 6. Multiple complex medical issues. RECOMMENDATIONS AND DISCUSSION: I recommend to continue current management repeat labs in the morning. Closely follow with Cardiology. Continue with antiplatelet agents. Prognosis guarded. Further recommendations to follow. MMODL / IJN: [id number] / VARGAS
[2025-01-29] MEDS: SODIUM CHLORIDE 0.9% 1,000 ML in EMPTY BAG 1 BAG IV SCH (03:03)
[2025-01-29 06:11] LABS: Glucose,Whole Blood 102 mg/dL (70-110)
--- NOTE | 2025-01-29 06:56 | P.CNNES ---
History of Present Illness Consult date: 01/28/25 Requesting physician: Chelsi Mckeon Reason for Consult: Black spots in right visual field post Cath History of Present Illness: Patient is a 44-year-old female with history of diabetes, peripheral neuropathy, CHF came to the hospital actually for shortness of breath, generalized swelling, worsening CHF. Patient has history of peripheral neuropathy involving the fingertips and the legs, and follows by Dr. Cobos. Patient also has history of seizure disorder since 2017 after she had history of stroke 2. Patient used to be on Topamax, but now has been switched to Keppra last year because of her history of kidney stones. Patient also has history of cataracts, glaucoma and history of retinal surgery. About a month ago she slipped and fell in the tub and hit her left eye on the top. She was diagnosed with retinal hemorrhage and follows up with Dr. Curtis, who is planning to do some lasers treatment for her retina. Patient has developed visual field problem with the left eye laterally. Patient underwent cardiac catheterization yesterday by cardiology. When she woke up from the procedure, she could not move could not get her hands to wake up. It was felt patient received excessive dose of fentanyl, and she was given Narcan and she improved. She also noted some visual issue with the right eye only. It is like "sharpie Marker" black line in the upper nasal field of the right eye. It goes away when she closes her right eye, but is present when she is only looking with the right eye. Patient denies any new focal numbness besides her history of peripheral neuropathy. Denies any slurred speech facial droop or any other stroke symptoms. Patient also mentions that in September 2024 she was hospitalized at [facility] and she stayed in the bed for a month and since then she has noticed a weakness in the legs. Patient's vital signs are stable. Blood tests shows normal CBC, PT/PTT, sodium 133 potassium 4.7, rear functions are normal. Hepatic panel with AST 45 ALT 28. Hemoglobin A1c 6.2. Lipid panel with cholesterol 172, LDL 101, HDL 40, triglycerides 149. TSH is 4.80, free T4 1 0.93. She has acetylcholine receptor antibodies and striated muscle antibodies checked on 12/02/2018 was negative. Patient had a CT head on 01/27/2025, which revealed no acute intracranial p rocess. Similar mild patchy burden of chronic small vessel ischemic disease. I personally reviewed CT head, agree with the findings. Review of Systems All pertinent positive and negative review of systems mentioned in the HPI, otherwise unremarkable. Past Medical History Past Medical History: Asthma, Coronary Artery Disease (CAD), Heart Failure, CVA/TIA, Diabetes Mellitus, Deep Vein Thrombosis (DVT), GI Bleed, Hyperlipidemia , Pneumonia, Seizure Disorder Additional Past Medical History / Comment(s): NIDDM type II, grand mal seizure and stroke once in 2016 and second stroke in 2021, last seizure October of 2024, lower GI bleed, mild diverticular dx, PCOS, bronchitis, pneumonia, migraines, allergic rhinitis. Kidney stones, last seizure 10/29/24-still has small bruise on back from falling r/t seizure, currently has pleural effusion bilat, gastroparesis, neuropathy, "leaky heart valve" History of Any Multi-Drug Resistant Organisms: MRSA, None Reported Date of last positivie culture/infection: 2011 MDRO Source:: Lungs Past Surgical History: Section, Cholecystectomy, Tubal Ligation Additional Past Surgical History / Comment(s): colonoscopies, R groin mole removed then resected d/t abnormal cells-bening, kidney stones surgically removed, bilat cataracts removed, glaucoma sx, bilat retainal sx for bleeding, bilateral thoracentesis at [facility] in September 2024 Past Anesthesia/Blood Transfusion Reactions: No Reported Reaction Past Psychological History: Anxiety Additional Psychological History / Comment(s): Pt resides with her 2 children. Pt is independent. She drives. Smoking Status: Former smoker Past Alcohol Use History: None Reported Past Drug Use History: None Reported - Past Family History Father Family Medical History: Cancer Additional Family Medical History / Comment(s): COLON, MELANOMA ON HIS CHEST AND HE ALSO HAS BENIGN BRAIN TUMORS 2, diabetes, pancreatic cancer. FATHER IS alive. Mother Family Medical History: Cancer, Dialysis Additional Family Medical History / Comment(s): MELANOMA THAT METASTASIZED TO THE BRAIN- FROM AT AGE 49 YRS. Mother had an VT at age 34 with angioplasty at age 36 yrs and another VT, and history of diabetes. Patient has many aunts, uncles and nieces with diabetes on her mother's side. Brother(s) Family Medical History: Cancer Additional Family Medical History / Comment(s): Patient has one half-brother with kidney stones, full brother with no major medical problems. Patient has 1 sister with no major medical problems. Daughter(s) Additional Family Medical History / Comment(s): Patient has 2 daughters and her youngest daughter has history of seizure disorder. Patient has one son with no major medical problems. Medications and Allergies Home Medications Medication Instructions Recorded Confirmed Type Albuterol Inhaler [Ventolin Hfa 2 puff INHALATION RT-Q4H PRN 04/15/17 01/23/25 History Inhaler] HYDROcodone/APAP 10-325MG [Delphia 1 tab PO TID PRN 01/14/18 01/23/25 History 10-325] Loratadine [Claritin] 10 mg PO DAILY 03/26/23 01/23/25 History levETIRAcetam [Keppra] 500 mg PO DAILY 08/29/23 01/23/25 History Cyclobenzaprine [Flexeril] 20 mg PO HS 11/11/23 01/23/25 History Ondansetron Odt [Zofran ODT] 4 mg PO TID PRN 04/06/24 01/23/25 History Albuterol Nebulized [Ventolin 2.5 mg INHALATION RT-QID PRN 11/04/24 01/23/25 History Nebulized] Apixaban [Eliquis] 5 mg PO BID 11/04/24 01/23/25 History Budesonide/Formoterol Fumarate 2 puff INHALATION RT-DAILY 11/04/24 01/23/25 History [Symbicort 160-4.5 Mcg Inhaler] Empagliflozin [Jardiance] 10 mg PO DAILY 11/04/24 01/23/25 History Furosemide [Lasix] 40 mg PO DAILY 11/04/24 01/23/25 History Metoprolol Tartrate [Lopressor] 50 mg PO DAILY 11/04/24 01/23/25 History Pantoprazole [Protonix] 40 mg PO DAILY 12/21/24 01/23/25 History Sodium Bicarbonate 325 mg PO DAILY 12/21/24 01/23/25 History Naproxen [Naprosyn] 500 mg PO BID PRN 12/31/24 01/23/25 History Cephalexin [Keflex] 500 mg PO Q6H 7 Days #28 cap 01/12/25 01/23/25 Rx Azithromycin [Zithromax Z Pack] See Taper PO DAILY 01/23/25 01/23/25 History Chlorhexidine Gluconate [Peridex] 15 ml PO BID 01/23/25 01/23/25 History Allergies Allergy/AdvReac Type Severity Reaction Status Date / Time Penicillins Allergy Nausea & Verified 01/23/25 10:48 Vomiting, rash codeine AdvReac Nausea & Verified 01/23/25 10:48 Vomiting morphine AdvReac Nausea & Verified 01/23/25 10:48 Vomiting Sulfa (Sulfonamide AdvReac Nausea & Verified 01/23/25 10:48 Antibiotics) Vomiting, rash tramadol AdvReac Per Verified 01/23/25 10:48 patient, cannot take with Keppra Physical Examination - Vital Signs Vital Signs: Vital Signs Temp Pulse Pulse Resp BP BP Pulse Ox 01/28/25 15:37 98 F 88 16 145/94 99 01/28/25 13:08 97.6 F 90 16 136/90 100 01/28/25 08:10 97.4 F L 99 16 160/103 96 01/28/25 07:58 94 01/28/25 07:50 98 01/28/25 07:49 94 01/28/25 04:00 88 150/101 98 01/28/25 00:00 97.4 F L 84 16 128/89 96 01/27/25 20:54 98.1 F 83 19 133/91 98 FiO2 01/28/25 15:37 01/28/25 13:08 01/28/25 08:10 01/28/25 07:58 01/28/25 07:50 21 01/28/25 07:49 01/28/25 04:00 01/28/25 00:00 01/27/25 20:54 Intake and Output 01/28/25 01/28/25 01/28/25 06:59 14:59 22:59 Intake Total 480 Balance 480 Intake: Oral 480 Other: Voiding Method Toilet # Voids 2 # Bowel Movements 0 Weight 79.3 kg Patient is a middle aged female, very pleasant, in no acute distress. Patient is alert awake oriented to time place and person. Speech and language functions are normal. Patient can name and repeat very well. No aphasia or dysarthria. Attention, concentration and fund of knowledge is adequate. On cranial nerve examination, pupils are equal, round and reacting to light, visual mcclellan revealed monocular visual field defect involving the left upper quadrant somewhat peripherally. Visual mcclellan are normal on the right eye. Extraocular muscles are intact with no nystagmus. Face is symmetric, tongue protrudes to the midline. Palatal elevation and sensation normal, hearing and shoulder shrug normal, facial sensation normal. On muscle strength testing, there is no pronator drift and the strength is normal in arms and legs distally and proximally, except hip flexion which is about 4+ on the right, 4+5 on the left. Deep tendon reflexes are areflexic. Sensory to touch is equal with no neglect on double simultaneous stimulation. Cerebellar function showed no ataxia for [id number] testing. No dysdiadochokinesia. No ataxia for [id number] testing on either side. Tone and bulk of muscles normal. Gait deferred.. On general examination, there is no carotid bruit or murmur, S1-S2 audible. Chest is clear on consultation. Abdomen is soft nontender. No organomegaly, bowel sounds present. Peripheral pulses could not be felt because of severe peripheral edema extending all the way to the hips. Results - Laboratory Findings CBC and BMP: 01/28/25 06:54 01/28/25 06:54 Abnormal Lab Findings: Abnormal Labs 01/23/25 01/23/25 01/23/25 05:58 05:58 05:58 Hgb 11.6 L MCV 78.0 L MCH 24.1 L MCHC 30.9 L MPV Lymphocytes # 0.58 L APTT 21.1 L D-Dimer 1.35 H Sodium 121 L Potassium 5.8 H Chloride 85 L Carbon Dioxide BUN 30 H Creatinine Glucose 620 H* POC Glucose (mg/dL) Hemoglobin A1c Plasma Lactic Acid Carlos AST 45 H Alkaline Phosphatase 256 H Albumin 3.0 L TSH 01/23/25 01/23/25 01/23/25 05:58 05:58 05:58 Hgb MCV MCH MCHC MPV Lymphocytes # APTT D-Dimer Sodium Potassium Chloride Carbon Dioxide BUN Creatinine Glucose POC Glucose (mg/dL) Hemoglobin A1c 16.2 H Plasma Lactic Acid Carlos 2.2 H* AST Alkaline Phosphatase Albumin TSH 4.800 H 01/23/25 01/23/25 01/23/25 06:50 09:00 10:09 Hgb MCV MCH MCHC MPV Lymphocytes # APTT D-Dimer Sodium Potassium Chloride Carbon Dioxide BUN Creatinine Glucose POC Glucose (mg/dL) 570 H* 496 H Hemoglobin A1c Plasma Lactic Acid Carlos 2.8 H* AST Alkaline Phosphatase Albumin TSH 01/23/25 01/23/25 01/23/25 11:50 12:19 15:01 Hgb MCV MCH MCHC MPV Lymphocytes # APTT D-Dimer Sodium 128 L Potassium Chloride 86 L Carbon Dioxide 32 H BUN 29 H Creatinine Glucose 281 H POC Glucose (mg/dL) 325 H Hemoglobin A1c Plasma Lactic Acid Carlos 2.8 H* AST Alkaline Phosphatase Albumin TSH 01/23/25 01/23/25 01/24/25 16:23 19:59 06:27 Hgb MCV MCH MCHC MPV Lymphocytes # APTT D-Dimer Sodium Potassium Chloride Carbon Dioxide BUN Creatinine Glucose POC Glucose (mg/dL) 181 H 198 H 294 H Hemoglobin A1c Plasma Lactic Acid Carlos AST Alkaline Phosphatase Albumin TSH 01/24/25 01/24/25 01/24/25 07:23 11:27 16:21 Hgb MCV MCH MCHC MPV Lymphocytes # APTT D-Dimer Sodium 128 L Potassium Chloride 92 L Carbon Dioxide 32 H BUN 31 H Creatinine 1.10 H Glucose 299 H POC Glucose (mg/dL) 299 H 302 H Hemoglobin A1c Plasma Lactic Acid Carlos AST Alkaline Phosphatase Albumin TSH 01/24/25 01/25/25 01/25/25 20:26 05:55 06:00 Hgb MCV MCH MCHC MPV Lymphocytes # APTT D-Dimer Sodium 128 L Potassium Chloride 91 L Carbon Dioxide 31 H BUN 33 H Creatinine Glucose 248 H POC Glucose (mg/dL) 307 H 244 H Hemoglobin A1c Plasma Lactic Acid Carlos AST Alkaline Phosphatase Albumin TSH 01/25/25 01/25/25 01/25/25 11:24 17:05 20:03 Hgb MCV MCH MCHC MPV Lymphocytes # APTT D-Dimer Sodium Potassium Chloride Carbon Dioxide BUN Creatinine Glucose POC Glucose (mg/dL) 316 H 307 H 177 H Hemoglobin A1c Plasma Lactic Acid Carlos AST Alkaline Phosphatase Albumin TSH 01/26/25 01/26/25 01/26/25 06:10 06:22 11:16 Hgb MCV MCH MCHC MPV Lymphocytes # APTT D-Dimer Sodium 132 L Potassium Chloride 96 L Carbon Dioxide BUN 37 H Creatinine 1.05 H Glucose 153 H POC Glucose (mg/dL) 154 H 201 H Hemoglobin A1c Plasma Lactic Acid Carlos AST Alkaline Phosphatase Albumin TSH 01/26/25 01/26/25 01/26/25 13:53 16:21 19:58 Hgb MCV MCH MCHC MPV Lymphocytes # APTT D-Dimer Sodium Potassium Chloride Carbon Dioxide BUN Creatinine Glucose POC Glucose (mg/dL) 174 H 155 H 214 H Hemoglobin A1c Plasma Lactic Acid Carlos AST Alkaline Phosphatase Albumin TSH 01/27/25 01/27/25 01/27/25 06:04 06:04 06:24 Hgb 11.5 L MCV 79.2 L MCH 23.7 L MCHC 29.9 L MPV 9.4 L Lymphocytes # APTT D-Dimer Sodium 128 L Potassium 5.2 H Chloride Carbon Dioxide BUN 42 H Creatinine Glucose 266 H POC Glucose (mg/dL) 308 H Hemoglobin A1c Plasma Lactic Acid Carlos AST Alkaline Phosphatase Albumin TSH 01/27/25 01/27/25 01/27/25 10:59 16:12 20:38 Hgb MCV MCH MCHC MPV Lymphocytes # APTT D-Dimer Sodium Potassium Chloride Carbon Dioxide BUN Creatinine Glucose POC Glucose (mg/dL) 216 H 117 H 194 H Hemoglobin A1c Plasma Lactic Acid Carlos AST Alkaline Phosphatase Albumin TSH 01/28/25 01/28/25 01/28/25 06:02 06:54 06:54 Hgb MCV 79.5 L MCH 23.8 L MCHC 29.9 L MPV Lymphocytes # 0.82 L APTT D-Dimer Sodium 133 L Potassium Chloride 97 L Carbon Dioxide 31 H BUN 33 H Creatinine Glucose 222 H POC Glucose (mg/dL) 238 H Hemoglobin A1c Plasma Lactic Acid Carlos AST Alkaline Phosphatase Albumin TSH 01/28/25 01/28/25 11:29 16:58 Hgb MCV MCH MCHC MPV Lymphocytes # APTT D-Dimer Sodium Potassium Chloride Carbon Dioxide BUN Creatinine Glucose POC Glucose (mg/dL) 227 H 184 H Hemoglobin A1c Plasma Lactic Acid Carlos AST Alkaline Phosphatase Albumin TSH Assessment and Plan Assessment: * New onset visual disturbance with constant black line described as "sharpie highlighter" in the upper nasal visual field of the right eye only. Suspect related to ocular issue. Patient does have history of diabetic retinopathy and glaucoma. Her neurological examination is nonfocal. * Diabetes, poorly controlled * Congestive heart failure with reduced EF * Cardiomyopathy * Coronary artery disease with triple vessel disease * History of DVT * Hyperlipidemia * Obesity * History of possible CVA 2. No residual deficits. * Glaucoma * Plan: * Patient's visual disturbance likely related to some ocular issue. 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 * All stroke workup negative as mentioned below (except for multiple risk factors). * Recommend aggressive control of stroke risk factors. * CT head showed no acute process. * 2-D echo revealed LV EF 20-25%. Left ventricular cavity size is normal. Mildly increased septal wall thickness. Severely decreased left ventricular EF. Moderate pulmonary hypertension. Moderate right ventricular dilation. Mildly increased left atrial diameter. Mild right atrial dilation. No thrombus. Moderate TR. * Carotid Doppler, revealed no hemodynamically significant stenosis of either ICA. Antegrade flow in both vertebral arteries. * Fasting a.m. lipid panel with cholesterol 172, LDL 101, HDL 40, triglycerides 149. Continue Lipitor 40 mg daily * Hemoglobin A1c 16.2. Recommend optimize control of diabetes to target A1c < 7.0 * Optimize control of blood pressure. * Patient on Eliquis 5 mg twice a day and aspirin 81 mg daily. * Neuro checks every shift. * Telemetry monitoring rule out any arrhythmia * Patient undergoing possible PCI in the morning for triple-vessel disease. * DVT prophylaxis: Patient on Eliquis. * Neurologically, no other workup indicated. Thank you for the consult.
[2025-01-29] MEDS ORDERED: HEPARIN SODIUM,PORCINE (1 ML) 2,500 UNIT in SODIUM CHLORIDE 0.9% 250 ML IRRIGATION PRN (07:00)
[2025-01-29] MEDS ORDERED: HEPARIN SODIUM,PORCINE 10,000 UNIT in SODIUM CHLORIDE 0.9% 1,000 ML IRRIGATION PRN (07:00)
[2025-01-29 07:46] LABS: Basophils # (A) 0.08 10*3/uL (0.00-0.10); Basophils % (A) 1.8 %; Eosinophils # (A) 0.33 10*3/uL (0.04-0.35); Eosinophils % (A) 7.3 %; HCT 35.4 % (37.2-46.3); HGB 10.7 g/dL (12.0-15.0); Lymphocytes # (A) 1.05 10*3/uL (0.90-5.00); Lymphocytes % (A) 23.2 %; MCHC 30.2 g/dL (32.0-37.0); MCV 79.4 fL (80.0-97.0); Mean Platelet Volume 8.9 fL (9.5-12.2); Monocytes # (A) 0.76 10*3/uL (0.20-1.00); Monocytes % (A) 16.8 %; Neutrophils % (A) 50.7 %; Platelet Count 254 10*3/uL (140-440); RBC 4.46 10*6/uL (4.10-5.20); RDW 17.8 % (11.5-14.5); WBC 4.53 10*3/uL (4.50-10.00)
[2025-01-29 07:53] LABS: INR 1.1 (<1.2)
[2025-01-29 08:04] LABS: African American GFR (CKD) >90 (>60 ml/min/1.73 sqM); Anion Gap 6 mmol/L; Blood Urea Nitrogen 25 mg/dL (7-17); Calcium 9.5 mg/dL (8.4-10.2); Carbon Dioxide 27 mmol/L (22-30); Chloride 99 mmol/L (98-107); Glucose 88 mg/dL (74-99); Non-African American GFR(CKD) 86 (>60 ml/min/1.73 sqM); Potassium 4.4 mmol/L (3.5-5.1); Sodium 132 mmol/L (137-145)
[2025-01-29] MEDS: ASPIRIN 325 MG TAB PO ONE (08:51)
[2025-01-29] MEDS: ATORVASTATIN 80 MG TAB PO ONE (08:52)
--- NOTE | 2025-01-29 10:08 | P.PN ---
Subjective HISTORY OF PRESENT ILLNESS: 43-year-old female presented the hospital because of increased worsening dyspnea on exertion along with symptoms of orthopnea and paroxysmal nocturnal dyspnea. On admission she appeared volume overloaded and was noticed to be hyperglycemic cardiology was consulted for CHF management. She denies any symptoms of chest pain chest pressure. She reports that she follows up with a chemical research engineer in [facility] and she has been told that she might need a heart catheterization procedure for low LVEF. Admission Vitals: 160/100 mmHg, 102 bpm Admission Labs: Hb 11 BUN 30, creatinine 0.8, glucose 640, lactate 2.2, repeat 2.8, troponins were not elevated, NT-proBNP 8000, TSH 4.8, Admission EKG: EKG showed sinus tachycardia heart rate 105 bpm, low voltage complexes, poor R wave progression Imaging: CTA chest did not show any evidence of PE but did show subcutaneous edema suggestive of fluid overload situation, cardiomegaly At home she is on Lasix 40 mg daily, Jardiance 10 mg daily, Eliquis 5 mg twice daily, metoprolol 50 mg daily 01/25/2025 Patient examined this morning at the bedside. Patient currently denies chest pain or pressure. She denies shortness of breath. She has been transition to oral diuretics. Preliminary echo reveals ejection fraction around 20%. Patient states that she normally follows with a chemical research engineer in [place] however she no longer sees him in would like to establish care locally. 01/26/2025 Patient examined this morning the bedside. Patient currently denies chest pain or pressure. She denies shortness of breath. Patient states she feels nervous this morning regarding cardiac catheterization. Echocardiogram revealing ejection fraction 25%, moderate pulmonary hypertension, mild mitral regurgitation, moderate tricuspid regurgitation, trivial aortic insufficiency and small pericardial effusion 01/27/2025 Patient is status postcardiac catheterization yesterday with Dr. Silverio revealing 80 to 90% tubular proximal and mid LAD stenosis, 50% diffuse disease mid and distal circumflex, 60% tubular proximal RCA stenosis. CT surgery was consulted for evaluation. Patient currently denies any chest pain or pressure. She denies any shortness of breath. She reports having black spots in her right visual field that started after her cardiac catheterization. She states she has never had this in the past. Denies any speech issues or peripheral weakness. 01/28/2025 Patient examined this morning at bedside. Patient currently denies any chest pain or pressure. She denies shortness of breath. She states that the black spot she was seen in her right visual field is significantly improved today. She underwent CT of the brain yesterday which was negative for CVA. 01/29/2025 Patient examined this morning at the bedside. Patient currently denies chest pain or pressure. She denies shortness of breath. Vital signs are stable. PHYSICAL EXAM: VITAL SIGNS: Reviewed. GENERAL: Well-developed in no acute distress. NECK: Supple. No JVD or thyromegaly LUNGS: Respirations even and unlabored. Lungs essentially clear to auscultation bilaterally. HEART: Regular rate and rhythm. S1 and S2 heard. EXTREMITIES: Normal range of motion. No clubbing or cyanosis. Peripheral pulses intact. Trace bilateral lower extremity edema ASSESSMENT: Shortness of breath Acute on chronic heart failure with reduced EF Cardiomyopathy, 25% ischemic Status post cardiac catheterization revealing triple-vessel coronary artery disease Black spots in visual field post cath, rule out TIA/CVA History of DVT, on Eliquis outpatient Hyperlipidemia Hyponatremia, likely chronic per patient Hyperkalemia, resolved Diabetes, uncontrolled, hemoglobin A1c 16.2 Obesity: BMI 30.6 History of CVA x 2 PLAN: Continue aspirin, Eliquis, Lipitor, Bumex, metoprolol, Farxiga, Entresto, and Aldactone Dr. Piedra had in-depth conversation with the patient at the bedside this morning. He does recommend eventual cardiac MRI to assess anterior viability. He offered to do PCI of the RCA today which patient declined and stated she did not want to have anything further done and wanted to be discharged home. She states that she would like to go home and think about her options regarding possible stenting versus reevaluation for CABG once her diabetes is better controlled. Patient may be discharged home today from a cardiac standpoint and will follow- up with Dr. Silverio in the office Nurse practitioner note has been reviewed by physician. Signing provider agrees with the documented findings, assessment, and plan of care documented by [employer] as a scribe. Objective - Vital Signs Vital signs: Vital Signs Temp 97.5 F L 01/29/25 07:50 Pulse 93 01/29/25 07:50 Resp 16 01/29/25 07:50 BP 139/98 01/29/25 07:50 Pulse Ox 98 01/29/25 07:50 FiO2 21 01/28/25 07:50 Intake & Output 01/28/25 01/29/25 01/29/25 18:59 06:59 18:59 Intake Total 720 540 Balance 720 540 Weight 78.7 kg Intake: Oral 720 540 Other: Voiding Method Toilet # Voids 3 # Bowel Movements 0 - Labs CBC & Chem 7: 01/29/25 07:15 01/29/25 07:15 Labs: Abnormal Lab Results - Last 24 Hours (Table) 01/28/25 01/28/25 01/29/25 Range/Units 11:29 16:58 07:15 Hgb 10.7 L (12.0-15.0) g/dL Hct 35.4 L (37.2-46.3) % MCV 79.4 L (80.0-97.0) fL MCH 24.0 L (27.0-32.0) pg MCHC 30.2 L (32.0-37.0) g/dL MPV 8.9 L (9.5-12.2) fL Sodium (137-145) mmol/L BUN (7-17) mg/dL POC Glucose (mg/dL) 227 H 184 H (70-110) mg/dL 01/29/25 Range/Units 07:15 Hgb (12.0-15.0) g/dL Hct (37.2-46.3) % MCV (80.0-97.0) fL MCH (27.0-32.0) pg MCHC (32.0-37.0) g/dL MPV (9.5-12.2) fL Sodium 132 L (137-145) mmol/L BUN 25 H (7-17) mg/dL POC Glucose (mg/dL) (70-110) mg/dL Microbiology - Last 24 Hours (Table) 01/27/25 06:30 Nasal Screen MRSA/MSSA - Final Nasal Swab
[2025-01-29 11:11] LABS: Glucose,Whole Blood 186 mg/dL (70-110)
[2025-01-29 11:41] VITALS: BP 146/98; PULSE 98; TEMP 97.9
--- NOTE | 2025-01-29 15:18 | DS ---
DISCHARGE SUMMARY FINAL DIAGNOSES: 1. Status post cardiac catheterization revealed 3-vessel disease. 2. Congestive heart failure with possible ischemic cardiomyopathy. 3. Seizure disorder. 4. Hyponatremia. 5. Anemia. 6. Multiple complex medical issues. DISCHARGE DISPOSITION: The patient is being discharged in stable condition and guarded prognosis. HISTORY OF PRESENT ILLNESS: This 44-year-old woman with a past medical history, was admitted with CHF acute exacerbation. Cardiac cath showed three-vessel coronary artery disease. Outpatient followup is being recommended. Cardiology is also recommended a CT surgery evaluation. Please refer to the multiple progress notes and consultations for detailed report. The patient is recommended to resume the home medications and added medications are Entresto b.i.d., Farxiga 10 mg daily, Aldactone 25 mg daily, aspirin 81 mg daily, Bumex 1 mg p.o. daily, Lantus 30 units subcu daily and Accu-Cheks a.c. and at bedtime and adjust outpatient. Lipitor 40 mg p.o. daily. Follow up with Cardiology as recommended. Once again, the patient was discharged in stable condition and guarded prognosis. Time taken 35 minutes. MMKASSIEL / ANTONELLAN: [id number] /
== END 2025-01-29 14:51 | disposition home or self-care (01) | DRG 192 ==
LOC: EC 05:06 → 3SCARD 07:01
PROVIDERS: ADMIT Hospitalist; ATTEND Hospitalist
PROC: 4A023N7 Measurement of Cardiac Sampling and Pressure, Left Heart, Percutaneous Approach (ICD-10-PCS; principal; 2025-01-26 12:00)
PROC: B2111ZZ Fluoroscopy of Multiple Coronary Arteries using Low Osmolar Contrast (ICD-10-PCS; principal; 2025-01-26 12:00)
DX: I11.0 Hypertensive heart disease with heart failure (principal); I50.23 Acute on chronic systolic (congestive) heart failure; E87.1 Hypo-osmolality and hyponatremia; E11.65 Type 2 diabetes mellitus with hyperglycemia; E66.9 Obesity, unspecified; Z68.30 Body mass index [BMI] 30.0-30.9, adult; E11.43 Type 2 diabetes mellitus with diabetic autonomic (poly)neuropathy; K31.84 Gastroparesis; G40.909 Epilepsy, unspecified, not intractable, without status epilepticus; S30.0XXD Contusion of lower back and pelvis, subsequent encounter; L97.911 Non-pressure chronic ulcer of unspecified part of right lower leg limited to breakdown of skin; E11.622 Type 2 diabetes mellitus with other skin ulcer; J96.01 Acute respiratory failure with hypoxia; I42.0 Dilated cardiomyopathy; I27.20 Pulmonary hypertension, unspecified; E11.319 Type 2 diabetes mellitus with unspecified diabetic retinopathy without macular edema; F41.9 Anxiety disorder, unspecified; E87.5 Hyperkalemia; I25.5 Ischemic cardiomyopathy; E78.5 Hyperlipidemia, unspecified; E11.39 Type 2 diabetes mellitus with other diabetic ophthalmic complication; E11.42 Type 2 diabetes mellitus with diabetic polyneuropathy; Z79.4 Long term (current) use of insulin; J45.909 Unspecified asthma, uncomplicated; E28.2 Polycystic ovarian syndrome; I25.10 Atherosclerotic heart disease of native coronary artery without angina pectoris; I08.2 Rheumatic disorders of both aortic and tricuspid valves; I31.39 Other pericardial effusion (noninflammatory); H35.62 Retinal hemorrhage, left eye; H40.9 Unspecified glaucoma; H42 Glaucoma in diseases classified elsewhere; G89.29 Other chronic pain; K57.90 Diverticulosis of intestine, part unspecified, without perforation or abscess without bleeding; E87.20 Acidosis, unspecified; D64.9 Anemia, unspecified; I48.91 Unspecified atrial fibrillation; M47.26 Other spondylosis with radiculopathy, lumbar region; T38.3X6A Underdosing of insulin and oral hypoglycemic [antidiabetic] drugs, initial encounter; H53.8 Other visual disturbances; Z79.51 Long term (current) use of inhaled steroids; Z79.899 Other long term (current) drug therapy; Z79.01 Long term (current) use of anticoagulants; Z88.0 Allergy status to penicillin; Z88.5 Allergy status to narcotic agent; Z88.2 Allergy status to sulfonamides; Z86.718 Personal history of other venous thrombosis and embolism; Z91.148 Patient's other noncompliance with medication regimen for other reason; Z87.891 Personal history of nicotine dependence; Z86.14 Personal history of Methicillin resistant Staphylococcus aureus infection; Z86.73 Personal history of transient ischemic attack (TIA), and cerebral infarction without residual deficits; Z82.49 Family history of ischemic heart disease and other diseases of the circulatory system; Z79.84 Long term (current) use of oral hypoglycemic drugs; Z79.82 Long term (current) use of aspirin; Z87.01 Personal history of pneumonia (recurrent)
CPT/HCPCS: 36415; 70450; 71045; 71046; 71275; 72131; 80048; 80053; 80061; 80074; 83036; 83605; 83735; 83880; 84439; 84443; 84484; 85025; 85379; 85610; 85730; 87070; 93005; 93306; 93458; 93880; 93970; 94640; 94760; 96374; 96375; 96376; 99285

== ENCOUNTER 2025-02-18 06:27 | Inpatient (IN) | payer OTHER ==
[~2025-02-18 06:27] MED LIST changes: +ALPRAZolam 0.25 MG TAB PO PRN; +ALPRAZolam 0.5 MG TAB PO PRN; -DEXAMETHASONE SOD PHOSPHATE 4 MG/ML 1 ML VIAL IV ONE; -HYDROmorphone 0.5 MG/0.5 ML SYRINGE IVP PRN; -LIDOCAINE 1% (10MG/ML) FOR IV START INTRADERMA PRN; -MIDAZOLAM 2 MG/2 ML VIAL IV PRN; +NITROGLYCERIN SL TABS 0.4 MG TAB SUBLINGUAL PRN; -ONDANSETRON 4 MG/2 ML VIAL IVP ONE
[2025-02-18] MEDS: IV FLUID CONTINUATION 1,000 ML IV ONE (07:15)
[2025-02-18 07:20] LABS: Glucose,Whole Blood 518 mg/dL (70-110)
[2025-02-18] MEDS: HEPARIN SODIUM,PORCINE 10,000 UNIT in SODIUM CHLORIDE 0.9% 1,000 ML IRRIGATION PRN (07:27)
[2025-02-18] MEDS: HEPARIN SODIUM,PORCINE (1 ML) 2,500 UNIT in SODIUM CHLORIDE 0.9% 250 ML IRRIGATION PRN (07:27)
[2025-02-18] MEDS: SODIUM CHLORIDE 0.9% 1,000 ML in EMPTY BAG 1 BAG IV SCH (07:28)
[2025-02-18] MEDS: INSULIN LISPRO (HumaLOG) 100 UNIT/ML 10 mL VL SQ ONE (07:36)
[2025-02-18] MEDS ORDERED: NAPROXEN 250 MG TAB PO PRN (08:19)
[2025-02-18] MEDS ORDERED: ALBUTEROL NEBULIZED 2.5 MG/3 ML INHALATION PRN (08:19)
[2025-02-18] MEDS ORDERED: NON FORMULARY DRUG (Albuterol Inhaler 90 MCG Puff) INHALATION PRN (08:19)
[2025-02-18] MEDS ORDERED: ALPRAZolam 0.25 MG TAB PO PRN (08:24)
[2025-02-18] MEDS: ASPIRIN 325 MG TAB PO STA (09:22)
[2025-02-18] MEDS: ATORVASTATIN 80 MG TAB PO STA (09:23)
[2025-02-18] MEDS ORDERED: DEXTROSE 50% SYRINGE 50 ML IVP PRN ×4 (09:25→11:52)
[2025-02-18] MEDS: METOPROLOL TARTRATE 50 MG TAB PO SCH (11:48)
[2025-02-18] MEDS: SPIRONOLACTONE 25 MG TAB PO SCH (11:48)
[2025-02-18] MEDS: PANTOPRAZOLE 40 MG TABLET PO SCH (11:48)
[2025-02-18] MEDS: SACUBITRIL/VALSARTAN 24 MG-26 MG TABLET PO SCH (11:48)
[2025-02-18] MEDS: BUMETANIDE 1 MG TAB PO SCH (11:48)
--- NOTE | 2025-02-18 11:50 | P.HPCAR ---
History of Present Illness H&P Date: 02/18/25 HISTORY OF PRESENTING ILLNESS: 43-year-old female presented to [facility] 01/2025 because of increased worsening shortness of breath orthopnea paroxysmal nocturnal dyspnea and lower extremity edema. On admission she was noticed to be fluid overloaded and hyperglycemic with poorly controlled diabetes. Cardiology was consulted for CHF management. Patient has previously seen a railway signal technician at [facility] and at [facility]. She was recommended to have a cardiac catheterization for low LVEF. On last hospital admission her NT-proBNP was 8000, BUN 30 creatinine 0.8, lactate 2.2, troponins were normal. EKG showed sinus tachycardia, low voltage, poor R wave progression, CTA but did show subcutaneous edema suggestive of fluid overload along with cardiomegaly. She also has history of DVT. She had a heart catheterization which showed 60% RCA, 50% LCx, 90% proximal LAD, 80% mid LAD, LVEDP 20. Her echo showed an EF of 5% with dilated LV with globally reduced systolic function, mild MR, mild TR, small pericardial effusion. Surgery was consulted but patient was denied for CABG because of high surgical risk. She was discharged home on aspirin, Eliquis, Lipitor, Bumex, metoprolol, Farxiga Entresto Aldactone. She was seen in the cardiology office and she was scheduled for a staged PCI with Impella support. Current vitals BP 155/109, heart rate 102 bpm, REVIEW OF SYSTEMS: 14 point review of system is negative except what is mentioned above in HPI. PHYSICAL EXAMINATION: Neck: Brisk carotid upstroke, has elevated JVP Lungs: Clear to auscultation. Heart: Regular rate and rhythm, S1-S2, , no murmur or rub. Abdomen: Soft nontender, positive bowel sounds. Extremities: 1+ pitting edema bilateral lower extremity Neuro: Alert, oritented, no focal deficits. Detailed neuro exam was not performed. ASSESSMENT: # Dilated ischemic cardiomyopathy EF 25 to 30% # Multivessel CAD with 90% proximal LAD, 80% mid LAD, 50% LCx and 60% RCA # Poorly controlled type 2 diabetes PLAN: Staged PCI with Impella support tomorrow IFR assessment of RCA and LAD LCX Clayton Silverio MD, FACC, RPVI Thank you for allowing [facility] to participate in this patient's care. Feel free to reach out in case of any followup questions. Physical Exam Vitals: Vital Signs Temp Pulse Resp BP BP Pulse Ox 02/18/25 07:06 98.5 F 102 H 16 155/109 151/104 96 Intake and Output 02/17/25 02/18/25 02/18/25 22:59 06:59 14:59 Intake Total 100 Balance 100 Intake: IV 100 Other: Weight 65.9 kg 65.9 kg Past Medical History Past Medical History: Asthma, Blood Disorder, Heart Failure, CVA/TIA, Diabetes Mellitus, Deep Vein Thrombosis (DVT), GERD/Reflux, GI Bleed, Hyperlipidemia, Hypertension, Musculoskeletal Disorder, Pneumonia, Seizure Disorder Additional Past Medical History / Comment(s): NIDDM type II, grand mal seizure and stroke in 2016, hx lower GI bleed, mild diverticular disease, PCOS, b ronchitis, migraines, allergic rhinitis, hx kidney stones, last seizure 10/29/24, hx bilateral pleural effusion, 09/2024 - bilateral DVT's, hematoma behind kidney(now has scar tissue on it) and low hemoglobin (2.6) with blood transfusion, bilateral hip and ankle bursitis, 3 discs in lower back deter oitrating and [address] Olguin 02/16/25 in regards to recent lab work results to see Chief Technician X Ray in regards to HGB A1C/elevated glucose, states no changes made to diabetic medications today. Patient states has been eating a lot of bananas lately because she has no teeth and is limited on whar she can eat, aware potassium is high, so should cut back on that. History of Any Multi-Drug Resistant Organisms: MRSA Date of last positivie culture/infection: 2011 MDRO Source:: Lungs Past Surgical History: Section, Cholecystectomy, Tubal Ligation Additional Past Surgical History / Comment(s): Colonoscopies, right groin mole removed then resected due to abnormal cells-benign, then got infected, kidney stones surgically removed, bilateral cataracts removed, glaucoma surgery, bilateral retinal surgery for bleeding, bilateral thoracentesis. Past Anesthesia/Blood Transfusion Reactions: No Reported Reaction, Motion Sickness Additional Past Anesthesia/Blood Transfusion Reaction / Comment(s): Hx blood transfusion with no problems. Smoking Status: Never smoker - Past Family History Father Family Medical History: Cancer, Diabetes Mellitus Additional Family Medical History / Comment(s): COLON CANCER, MELANOMA ON HIS CHEST AND HE ALSO HAS BENIGN BRAIN TUMORS X2, pancreatic cancer. Mother Family Medical History: Cancer, Diabetes Mellitus, Dialysis, Myocardial In farction (MN) Additional Family Medical History / Comment(s): MELANOMA THAT METASTASIZED TO THE BRAIN- AT AGE 49. Mother had an MN at age 34 with angioplasty at age 36 yrs and another MN, and history of diabetes. Patient has many aunts, uncles and nieces with diabetes on her mother's side. Brother(s) Family Medical History: Cancer Additional Family Medical History / Comment(s): Patient has one half-brother wi th kidney stones, full brother with no major medical problems. Patient has 1 sister with no major medical problems. Daughter(s) Family Medical History: Seizure Disorder Additional Family Medical History / Comment(s): Patient has 2 daughters and her youngest daughter has history of seizure disorder. Patient has one son with no major medical problems. Physical Examination Vital Signs Temp Pulse Resp BP BP Pulse Ox 02/18/25 07:06 98.5 F 102 H 16 155/109 151/104 96 Intake and Output 02/17/25 02/18/25 02/18/25 22:59 06:59 14:59 Intake Total 100 Balance 100 Intake: IV 100 Other: Weight 65.9 kg 65.9 kg Results 02/18/25 06:40 Comprehensive Metabolic Panel 02/18/25 Range/Units 06:40 Potassium 5.1 (3.5-5.1) mmol/L Current Medications Generic Name Dose Route Start Last Admin Trade Name Freq PRN Reason Stop Dose Admin Hydrocodone Bitart/Acetaminophen 1 each 02/18/25 08:19 Hydrocodone/Apap 10-325mg 1 Each Tab PO 03/20/25 08:18 TID PRN Pain Albuterol Sulfate 2.5 mg 02/18/25 08:19 Albuterol Nebulized 2.5 Mg/3 Ml INHALATION 03/20/25 08:18 RT-QID PRN Shortness Of Breath Alprazolam 0.5 mg 02/18/25 06:06 Alprazolam 0.5 Mg Tab PO 03/20/25 06:05 Q6HR PRN Moderate Anxiety Alprazolam 0.25 mg 02/18/25 08:24 Alprazolam 0.25 Mg Tab PO 03/20/25 08:23 Q6HR PRN Mild Anxiety Aspirin 81 mg 02/19/25 09:00 Aspirin 81 Mg PO 03/21/25 08:59 DAILY [facility] Atorvastatin Calcium 40 mg 02/19/25 09:00 Atorvastatin 40 Mg Tab PO 03/21/25 08:59 DAILY [facility] Budesonide/Formoterol Fumarate 2 puff 02/19/25 08:00 Symbicort 160-4.5 Mcg Inhaler INHALATION 03/21/25 07:59 RT-DAILY [facility] Bumetanide 1 mg 02/18/25 09:00 Bumetanide 1 Mg Tab PO 03/20/25 08:59 DAILY [facility] Cyclobenzaprine HCl 20 mg 02/18/25 21:00 Cyclobenzaprine 10 Mg Tab PO 03/20/25 20:59 HS [facility] Dapagliflozin 10 mg 02/18/25 09:00 Dapagliflozin Propanediol 10 Mg Tablet PO 03/20/25 08:59 DAILY [facility] Dextrose/Water 25 ml 02/18/25 09:25 Dextrose 50% Syringe 50 Ml IVP 03/20/25 09:24 PER PROTOCOL PRN Hypoglycemia Protocol Dextrose/Water 50 ml 02/18/25 09:25 Dextrose 50% Syringe 50 Ml IVP 03/20/25 09:24 PER PROTOCOL PRN Hypoglycemia Protocol Sodium Chloride 1,000 ml/ IV 1,000 mls @ 70 mls/hr 02/18/25 06:06 02/18/25 07:28 Solution IV 03/20/25 06:05 0 mls .[id number] SUSAN Administration Heparin Sodium (Porcine) 10, 1,001 mls @ 999 mls/hr 02/19/25 07:00 000 unit/ Sodium Chloride IRRIGATION 02/19/25 23:00 ONCE PRN INTRA-OP Heparin Sodium (Porcine) 2,500 250.5 mls @ 250 mls/hr 02/19/25 07:00 unit/ Sodium Chloride IRRIGATION 02/19/25 23:00 ONCE PRN INTRA-OP Insulin Glargine 20 unit 02/19/25 07:00 Insulin Glargine (Lantus) 100 Unit/Ml Syr SQ 03/21/25 06:59 DAILY@0700 [facility] Insulin Human Lispro 0 unit 02/18/25 12:30 Insulin Lispro (Humalog) 100 Unit/Ml 10 Ml Vl SQ 03/20/25 12:29 ACHS [facility] Protocol Levetiracetam 500 mg 02/19/25 09:00 Levetiracetam 500 Mg Tab PO 03/21/25 08:59 DAILY SUSAN Metoprolol Tartrate 50 mg 02/18/25 09:00 Metoprolol Tartrate 50 Mg Tab PO 03/20/25 08:59 DAILY [facility] Naproxen 500 mg 02/18/25 08:19 Naproxen 250 Mg Tab PO BID PRN Pain Nitroglycerin 0.4 mg 02/18/25 06:06 Nitroglycerin Sl Tabs 0.4 Mg Tab SUBLINGUAL 03/20/25 06:05 Q5M PRN Chest Pain Ondansetron HCl 4 mg 02/18/25 08:19 Ondansetron Odt 4 Mg Tab PO 03/20/25 08:18 TID PRN Nausea Pantoprazole Sodium 40 mg 02/18/25 09:00 Pantoprazole 40 Mg Tablet PO 03/20/25 08:59 AC-[id number] [facility] Sacubitril/Valsartan 1 each 02/18/25 09:00 Sacubitril/Valsartan 24 Mg-26 Mg Tablet PO 03/20/25 08:59 BID [facility] Spironolactone 25 mg 02/18/25 09:00 Spironolactone 25 Mg Tab PO 03/20/25 08:59 DAILY SUSAN Intake and Output 02/17/25 02/18/25 02/18/25 22:59 06:59 14:59 Intake Total 100 Balance 100 Intake: IV 100 Other: Weight 65.9 kg 65.9 kg Patient Weight 02/19/25 06:59 Weight 65.9 kg 02/18/25 06:40
[2025-02-18 11:59] LABS: Glucose,Whole Blood 323 mg/dL (70-110)
[2025-02-18] MEDS: INSULIN LISPRO (HumaLOG) 100 UNIT/ML 10 mL VL SQ SCH ×2 (12:02)
[2025-02-18 12:26] LABS: Glucose,Whole Blood 301 mg/dL (70-110)
[2025-02-18] MEDS: DAPAGLIFLOZIN PROPANEDIOL 10 MG TABLET PO SCH (12:28)
[2025-02-18 13:15] LABS: Basophils # (A) 0.08 10*3/uL (0.00-0.10); Basophils % (A) 1.6 %; HCT 40.2 % (37.2-46.3); Lymphocytes # (A) 0.91 10*3/uL (0.90-5.00); MCH 23.7 pg (27.0-32.0); MCHC 29.9 g/dL (32.0-37.0); MCV 79.4 fL (80.0-97.0); Mean Platelet Volume 9.9 fL (9.5-12.2); Monocytes # (A) 0.42 10*3/uL (0.20-1.00); Monocytes % (A) 8.3 %; Neutrophils # (A) 3.44 10*3/uL (1.80-7.70); Neutrophils % (A) 67.9 %; Platelet Count 208 10*3/uL (140-440); RBC 5.06 10*6/uL (4.10-5.20); RDW 18.7 % (11.5-14.5); WBC 5.06 10*3/uL (4.50-10.00)
[2025-02-18 15:26] LABS: NT-Pro-B-Type Natriuretic Pept 6421 pg/mL (0-125)
[2025-02-18 15:35] LABS: Chol/HDL Ratio 4.14 Ratio; Magnesium 2.1 mg/dL (1.5-2.4)
[2025-02-18 15:37] LABS: BUN/Creat Ratio 26.45 Ratio (12.00-20.00); Blood Urea Nitrogen 29.1 mg/dL (9.0-27.0); Calcium 9.4 mg/dL (8.7-10.3); Carbon Dioxide 17.3 mmol/L (21.6-31.8); Chloride 96 mmol/L (96-109); Glucose 550 mg/dL (70-110); LDL Cholesterol,Calculated 92.7 mg/dL (0.0-131.0); Potassium 5.6 mmol/L (3.5-5.5); Sodium 128 mmol/L (135-145)
[2025-02-18 17:08] LABS: Glucose,Whole Blood 228 mg/dL (70-110)
[2025-02-18 20:54] LABS: Glucose,Whole Blood 171 mg/dL (70-110)
[2025-02-18] MEDS: CYCLOBENZAPRINE 10 MG TAB PO SCH (21:23)
[2025-02-18] MEDS: HYDROcodone/APAP 10-325MG 1 EACH TAB PO PRN (21:24)
[2025-02-19] MEDS: INSULIN GLARGINE (LANTUS) 100 UNIT/ML SYR SQ SCH (05:51)
[2025-02-19] MEDS: ONDANSETRON ODT 4 MG TAB PO PRN (05:56)
[2025-02-19 06:15] LABS: Glucose,Whole Blood 317 mg/dL (70-110)
[2025-02-19] MEDS ORDERED: HEPARIN SODIUM,PORCINE 10,000 UNIT in SODIUM CHLORIDE 0.9% 1,000 ML IRRIGATION PRN (07:00)
[2025-02-19] MEDS ORDERED: HEPARIN SODIUM,PORCINE (1 ML) 2,500 UNIT in SODIUM CHLORIDE 0.9% 250 ML IRRIGATION PRN (07:00)
[2025-02-19] MEDS: SYMBICORT 160-4.5 MCG INHALER INHALATION SCH (08:26)
[2025-02-19] MEDS: ASPIRIN 81 MG PO SCH (08:57)
[2025-02-19] MEDS: ATORVASTATIN 40 MG TAB PO SCH (08:57)
[2025-02-19] MEDS: levETIRAcetam 500 MG TAB PO SCH (09:09)
[2025-02-19] MEDS: ATORVASTATIN 80 MG TAB PO STA (09:09)
[2025-02-19] MEDS: ASPIRIN 325 MG TAB PO STA (09:09)
[2025-02-19] MEDS: fentaNYL (PF) 50 MCG/ML 2 ML AMP IVP ONE (09:48)
[2025-02-19] MEDS: MIDAZOLAM 2 MG/2 ML VIAL IVP ONE (09:48)
[2025-02-19] MEDS: HEPARIN SODIUM,PORCINE (1 ML) 2,500 UNIT in SODIUM CHLORIDE 0.9% 250 ML IRRIGATION ONE (09:49)
[2025-02-19] MEDS: IV FLUID CONTINUATION 1,000 ML IV ONE (09:49)
[2025-02-19] MEDS: HEPARIN SODIUM (1,000 UNIT/ML) 1,000 UNIT in SODIUM CHLORIDE 0.9% 1,000 ML IRRIGATION ONE (09:49)
[2025-02-19] MEDS: LIDOCAINE 1% INJ 10MG/ML (20 ML MDV) SQ ONE (09:57)
[2025-02-19] MEDS: TICAGRELOR 90 MG TAB PO ONE (09:58)
[2025-02-19] MEDS: HEPARIN SODIUM 1,000 UN/ML (10ML VL) IV ONE (10:14)
[2025-02-19] MEDS: NITROGLYCERIN 1000MCG/10ML SYRINGE INTRACORON ONE (10:41)
[2025-02-19] MEDS: niCARdipine Syringe (1,000 mcg/10 mL) INTRACORON ONE (10:42)
[2025-02-19] MEDS: IOPAMIDOL-370 100ML BTL INJ ONE ×2 (10:53→10:58)
[2025-02-19] MEDS ORDERED: MAG HYDROX/AL HYDROX/SIMETH 30 ML CUP PO PRN (11:15)
[2025-02-19] MEDS ORDERED: ATROPINE SULFATE 0.1 MG/ML 10ML SYRINGE IV PRN (11:15)
[2025-02-19] MEDS ORDERED: NITROGLYCERIN SL TABS 0.4 MG TAB SUBLINGUAL PRN (11:15)
[2025-02-19] MEDS ORDERED: RX INFO: IV CONTRAST WAS GIVEN 1 EACH MISC MISCELLANE PRN (11:15)
[2025-02-19] MEDS ORDERED: ZOLPIDEM 5 MG TAB PO PRN (11:15)
--- NOTE | 2025-02-19 11:22 | P.PCN ---
Date of Procedure: 02/19/25 Operative Findings: PERCUTANEOUS CORONARY INTERVENTION Performing physician Tomasa Mojica Dr., MD Procedure Performed: 1. Successful stenting of the proximal and mid LAD using 3.5 x 18 mm and 3.25 x 23 mm Xience drug-eluting stent with an excellent angiographic results along with left heart catheterization 2. Adjunctive use of IVUS and Impella CP 3. Ultrasound-guided access of the right common femoral artery and selective right common femoral artery angiogram Indication: Critical LAD disease was diagnosed on previous heart catheterization with this patient was diagnosed with severe cardiomyopathy and deemed to be high risk for open heart surgery Approach: Right common femoral artery Complications: None Level of Sedation: Moderate with a sedation length of 65 minutes Procedure Discussion: After obtaining informed consent the patient was brought to the cardiac Cath L ab. The right common femoral artery was cannulated using micropuncture technique under ultrasound guidance a micropuncture wire passed easily then I placed a 6 Polish 11 cm sheath at the right common femoral artery after selective right common femoral artery angiogram was performed using a micropuncture catheter. After that I did place Perclose devices at 10:00 and 2:00 over or 3 5 wire and subsequently an 8 Polish 11 cm sheath was placed. At that point I did upgrade the 8 Polish 11 cm sheath into a 14 Polish 11 cm sheath using stiff 035 wire and the sheath was advanced under fluoroscopy guidance is very smoothly. Subsequently we did across the aortic valve using a 035 wire with a pigtail catheter then I advanced the 018 Impella wire inside the pigtail catheter and the pigtail catheter was withdrawn out. The subsequently the Impella CP was advanced over the 018 wire to the LV and turned on. We accessed the 14 Polish sheath using micropuncture technique and I placed a 7 Polish 23 cm sheath over a 035 wire. Subsequently anticoagulation was initiated using heparin with continuous ACT monitoring and the patient was loaded at the beginning of the procedure with Brilinta. After that I did engage the left main using JL 3.5 guiding catheter. I did wired the LAD using a run-through wire. We did an angiogram as well. Please note that LVEDP was obtained before we placed the Impella and came in to be elevated at 30 mmHg. After that I did IVUS of the LAD which showed a diameter around 4 mm. I did predilatation using 3 mm NC balloon before we deployed proximally 3.5 x 18 mm Xience FRANCISCA which was postdilated using 4.5 mm NC balloon and in the mid LAD we deployed a 3.25 x 23 mm stent. Also that stent was postdilated using 4 mm NC balloon. Final angiogram showed excellent angiographic results. The procedure was completed with no complication. We did pull the Impella out and then achieved hemostasis of the right groin using Perclose device and Angio-Seal device. Postprocedure Management: 1. Dual antiplatelet therapy using aspirin and Brilinta for at least 6-month 2. Aggressive cholesterol control 3. Risk factors modification
[2025-02-19 11:28] LABS: Glucose,Whole Blood 315 mg/dL (70-110)
[2025-02-19] MEDS: SODIUM CHLORIDE 0.9% 1,000 ML in EMPTY BAG 1 BAG IV SCH (11:45)
[2025-02-19 14:34] LABS: Glucose,Whole Blood 218 mg/dL (70-110)
[2025-02-19 17:16] LABS: Glucose,Whole Blood 150 mg/dL (70-110)
[2025-02-19] MEDS: ONDANSETRON 4 MG/2 ML VIAL IVP PRN (17:51)
[2025-02-19 20:00] LABS: Glucose,Whole Blood 79 mg/dL (70-110)
[2025-02-19] MEDS: TICAGRELOR 90 MG TAB PO SCH (20:58)
[2025-02-20 04:05] LABS: HCT 41.7 % (37.2-46.3); HGB 12.6 g/dL (12.0-15.0); MCH 24.1 pg (27.0-32.0); MCHC 30.2 g/dL (32.0-37.0); MCV 79.9 fL (80.0-97.0); Mean Platelet Volume 10.2 fL (9.5-12.2); Platelet Count 262 10*3/uL (140-440); RBC 5.22 10*6/uL (4.10-5.20); RDW 19.9 % (11.5-14.5); WBC 7.73 10*3/uL (4.50-10.00)
[2025-02-20 04:29] LABS: ALT 27 U/L (4-34); AST 36 U/L (14-36); African American GFR (CKD) >90 (>60 ml/min/1.73 sqM); Albumin 2.9 g/dL (3.5-5.0); Alkaline Phosphatase 241 U/L (38-126); Anion Gap 8 mmol/L; Blood Urea Nitrogen 38 mg/dL (7-17); Calcium 9.8 mg/dL (8.4-10.2); Carbon Dioxide 23 mmol/L (22-30); Chloride 98 mmol/L (98-107); Glucose 213 mg/dL (74-99); Non-African American GFR(CKD) 85 (>60 ml/min/1.73 sqM); Potassium 4.9 mmol/L (3.5-5.1); Sodium 129 mmol/L (137-145); Total Bilirubin 0.5 mg/dL (0.2-1.3); Total Protein 6.4 g/dL (6.3-8.2)
[2025-02-20 06:27] LABS: Glucose,Whole Blood 282 mg/dL (70-110)
[2025-02-20 11:11] LABS: Glucose,Whole Blood 231 mg/dL (70-110)
[2025-02-20 12:23] VITALS: BMI 29.4
[2025-02-20 12:24] VITALS: TEMP 97.6
[2025-02-20 15:03] VITALS: BP 123/86; PULSE 84; RESP 14
[2025-02-20] MEDS ORDERED: DAPAGLIFLOZIN PROPANEDIOL 10 MG TABLET PO SCH (15:45)
--- NOTE | 2025-02-20 15:53 | P.PN ---
Subjective Progress Note Date: 02/20/25 HISTORY OF PRESENTING ILLNESS: 43-year-old female presented to [facility] 01/2025 because of increased worsening shortness of breath orthopnea paroxysmal nocturnal dyspnea and lower extremity edema. On admission she was noticed to be fluid overloaded and hyperglycemic with poorly controlled diabetes. Cardiology was consulted for CHF management. Patient has previously seen a telegraph repeater mechanic at [facility] and at [facility]. She was recommended to have a cardiac catheterization for low LVEF. On last hospital admission her NT-proBNP was 8000, BUN 30 creatinine 0.8, lactate 2.2, troponins were normal. EKG showed sinus tachycardia, low voltage, poor R wave progression, CTA but did show subcutaneous edema suggestive of fluid overload along with cardiomegaly. She also has history of DVT. She had a heart catheterization which showed 60% RCA, 50% LCx, 90% proximal LAD, 80% mid LAD, LVEDP 20. Her echo showed an EF of 5% with dilated LV with globally reduced systolic function, mild MR, mild TR, small pericardial effusion. Surgery was consulted but patient was denied for CABG because of high surgical risk. She was discharged home on aspirin, Eliquis, Lipitor, Bumex, metoprolol, Farxiga Entresto Aldactone. She was seen in the cardiology office and she was scheduled for a staged PCI with Impella support. Progress note 02/20/2025 Underwent Impella assisted LAD PCI with Dr. Fam yesterday. No postop complications. Seen and examined at bedside this a.m. Doing well. Right groin appears intact with no signs of hematoma or bleeding. Hemodynamic stable, kidney function stable. Glucose is better today , hemoglobin is stable PHYSICAL EXAMINATION: Neck: Brisk carotid upstroke, has elevated JVP Lungs: Clear to auscultation. Heart: Regular rate and rhythm, S1-S2, , no murmur or rub. Abdomen: Soft nontender, positive bowel sounds. Extremities: 1+ pitting edema bilateral lower extremity Neuro: Alert, oritented, no focal deficits. Detailed neuro exam was not performed. ASSESSMENT: # Dilated ischemic cardiomyopathy EF 25 to 30% # Multivessel CAD with 90% proximal LAD, 80% mid LAD, 50% LCx and 60% RCA. Status post PCI of LAD with Impella assist # Poorly controlled type 2 diabetes # History of DVT on anticoagulation with Eliquis # History of GI bleeding PLAN: Aspirin Brilinta Eliquis And Brilinta expensive, do Plavix 75 mg daily No triple therapy for 1 week and thereafter stop aspirin and continue P2 Y12 and Eliquis Protonix 40 mg p.o. ac Lipitor 40, metoprolol succinate 50, Entresto, Farxiga, aldactone Tight glycemic control Patient is cleared from cardiovascular standpoint recommend outpatient follow-up within next 1 week Objective - Vital Signs Vital signs: Vital Signs Temp 97.6 F 02/20/25 12:00 Pulse 84 02/20/25 15:00 Resp 14 02/20/25 15:00 BP 123/86 02/20/25 15:00 Pulse Ox 96 02/20/25 15:00 FiO2 Intake & Output 02/19/25 02/20/25 02/20/25 18:59 06:59 18:59 Intake Total 950 1270 240 Output Total 7994 579 0049 Balance -150 670 -1010 Weight 72.9 kg 72.9 kg Intake: IV 500 Intake, IV Titration 450 770 0 Amount Sodium Chloride 0.9% 1, 770 0 000 ml In Empty Bag 1 bag @ 70 mls/hr IV .[id number] SUSAN Rx#:[id number] Sodium Chloride 0.9% 1, 450 000 ml In Empty Bag 1 bag @ 75 mls/hr IV .[id number] SUSAN Rx#:[id number] Oral 500 240 Output: Urine 9508 759 1789 Other: Voiding Method Bedside Commode Bedside Commode # Voids 1 0 0 - Labs CBC & Chem 7: 02/20/25 03:45 02/20/25 03:45 Labs: Abnormal Lab Results - Last 24 Hours (Table) 02/19/25 02/20/25 02/20/25 Range/Units 17:14 03:45 03:45 RBC 5.22 H (4.10-5.20) 10*6/uL MCV 79.9 L (80.0-97.0) fL MCH 24.1 L (27.0-32.0) pg MCHC 30.2 L (32.0-37.0) g/dL Sodium 129 L (137-145) mmol/L BUN 38 H (7-17) mg/dL Glucose 213 H (74-99) mg/dL POC Glucose (mg/dL) 150 H (70-110) mg/dL Alkaline Phosphatase 241 H (38-126) U/L Albumin 2.9 L (3.5-5.0) g/dL 02/20/25 02/20/25 Range/Units 06:26 11:09 RBC (4.10-5.20) 10*6/uL MCV (80.0-97.0) fL MCH (27.0-32.0) pg MCHC (32.0-37.0) g/dL Sodium (137-145) mmol/L BUN (7-17) mg/dL Glucose (74-99) mg/dL POC Glucose (mg/dL) 282 H 231 H (70-110) mg/dL Alkaline Phosphatase (38-126) U/L Albumin (3.5-5.0) g/dL
--- NOTE | 2025-02-20 15:56 | P.DS ---
Providers Expected date of discharge: 02/20/25 Attending physician: Ron Piedra Consults: 02/18/25 08:21 Consult Physician Urgent Consulting Provider: Paul Kumar Consult Reason/Comments: Medical/Diabetic Management Do you want consulting provider notified?: Yes 02/18/25 08:22 Consult Physician Urgent Consulting Provider: Clayton Silverio Consult Reason/Comments: Cardiology Consult Do you want consulting provider notified?: Already Contacted 02/19/25 11:15 Consult Physician Routine Consulting Provider: [facility] Consult Reason/Comments: Post Interventional patient Do you want consulting provider notified?: Already Contacted [facility] HISTORY OF PRESENTING ILLNESS: 43-year-old female presented to [facility] 01/2025 because of increased worsening shortness of breath orthopnea paroxysmal nocturnal dyspnea and lower extremity edema. On admission she was noticed to be fluid overloaded and hyperglycemic with poorly controlled diabetes. Cardiology was consulted for CHF management. Patient has previously seen a agricultural equipment sales engineer at [facility] and at [facility]. She was recommended to have a cardiac catheterization for low LV EF. On last hospital admission her NT-proBNP was 8000, BUN 30 creatinine 0.8, lactate 2.2, troponins were normal. EKG showed sinus tachycardia, low voltage, poor R wave progression, CTA but did show subcutaneous edema suggestive of fluid overload along with cardiomegaly. She also has history of DVT. She had a heart catheterization which showed 60% RCA, 50% LCx, 90% proximal LAD, 80% mid LAD, LVEDP 20. Her echo showed an EF of 5% with dilated LV with globally reduced systolic function, mild MR, mild TR, small pericardial effusion. Surgery was consulted but patient was denied for CABG because of high surgical risk. She was discharged home on aspirin, Eliquis, Lipitor, Bumex, metoprolol, Farxiga Entresto Aldactone. She was seen in the cardiology office and she was scheduled for a staged PCI with Impella support. Progress note 02/20/2025 Underwent Impella assisted LAD PCI with Dr. Fam yesterday. No postop complications. Seen and examined at bedside this a.m. Doing well. Right groin appears intact with no signs of hematoma or bleeding. Hemodynamic stable, kidney function stable. Glucose is better today , hemoglobin is stable PHYSICAL EXAMINATION: Neck: Brisk carotid upstroke, has elevated JVP Lungs: Clear to auscultation. Heart: Regular rate and rhythm, S1-S2, , no murmur or rub. Abdomen: Soft nontender, positive bowel sounds. Extremities: 1+ pitting edema bilateral lower extremity Neuro: Alert, oritented, no focal deficits. Detailed neuro exam was not performed. ASSESSMENT: # Dilated ischemic cardiomyopathy EF 25 to 30% # Multivessel CAD with 90% proximal LAD, 80% mid LAD, 50% LCx and 60% RCA. Status post PCI of LAD with Impella assist # Poorly controlled type 2 diabetes # History of DVT on anticoagulation with Eliquis # History of GI bleeding PLAN: Aspirin Brilinta Eliquis And Brilinta expensive, do Plavix 75 mg daily No triple therapy for 1 week and thereafter stop aspirin and continue P2 Y12 and Eliquis Protonix 40 mg p.o. ac Lipitor 40, metoprolol succinate 50, Entresto, Farxiga, aldactone Tight glycemic control Patient is cleared from cardiovascular standpoint recommend outpatient follow-up within next 1 week Plan - Discharge Summary Discharge Rx Participant: No New Discharge Prescriptions: New Metoprolol Succinate (ER) [Toprol XL] 50 mg PO DAILY 90 Days #90 tab Ticagrelor [Brilinta] 90 mg PO BID 30 Days #30 tab Continue HYDROcodone/APAP 10-325MG [Butler 10-325] 1 tab PO TID PRN PRN Reason: Pain levETIRAcetam [Keppra] 500 mg PO DAILY Ondansetron Odt [Zofran ODT] 4 mg PO TID PRN PRN Reason: Nausea Albuterol Nebulized [Ventolin Nebulized] 2.5 mg INHALATION RT-QID PRN PRN Reason: Shortness Of Breath Apixaban [Eliquis] 5 mg PO BID Naproxen [Naprosyn] 500 mg PO BID PRN PRN Reason: Pain Insulin Glargine (Lantus) [Lantus Vial] 20 unit SQ DAILY@0700 Spironolactone [Aldactone] 25 mg PO DAILY #30 tab Budesonide/Formoterol Fumarate [Symbicort 160-4.5 Mcg Inhaler] 2 puff INHALATION RT-DAILY Pantoprazole [Protonix] 40 mg PO DAILY Aspirin 81 mg PO DAILY #30 tab Bumetanide [BUMEX] 1 mg PO DAILY #30 tab Atorvastatin [Lipitor] 40 mg PO DAILY #30 tab Sacubitril/Valsartan [Entresto 24 mg-26 mg Tablet] 1 each PO BID #60 tab Dapagliflozin Propanediol [Farxiga] 10 mg PO DAILY 90 Days #90 tab Discontinued Albuterol Inhaler [Ventolin Hfa Inhaler] 2 puff INHALATION RT-Q4H PRN PRN Reason: Shortness Of Breath Loratadine [Claritin] 10 mg PO DAILY Metoprolol Tartrate [Lopressor] 50 mg PO DAILY Cyclobenzaprine [Flexeril] 20 mg PO HS Discharge Medication List HYDROcodone/APAP 10-325MG [Butler 10-325] 1 tab PO TID PRN 01/14/18 [History] levETIRAcetam [Keppra] 500 mg PO DAILY 08/29/23 [History] Ondansetron Odt [Zofran ODT] 4 mg PO TID PRN 04/06/24 [History] Albuterol Nebulized [Ventolin Nebulized] 2.5 mg INHALATION RT-QID PRN 11/04/24 [History] Apixaban [Eliquis] 5 mg PO BID 11/04/24 [History] Budesonide/Formoterol Fumarate [Symbicort 160-4.5 Mcg Inhaler] 2 puff INHALATION RT-DAILY 11/04/24 [History] Pantoprazole [Protonix] 40 mg PO DAILY 12/21/24 [History] Naproxen [Naprosyn] 500 mg PO BID PRN 12/31/24 [History] Aspirin 81 mg PO DAILY #30 tab 01/29/25 [Rx] Atorvastatin [Lipitor] 40 mg PO DAILY #30 tab 01/29/25 [Rx] Bumetanide [BUMEX] 1 mg PO DAILY #30 tab 01/29/25 [Rx] Insulin Glargine (Lantus) [Lantus Vial] 20 unit SQ DAILY@0700 02/17/25 [History] Dapagliflozin Propanediol [Farxiga] 10 mg PO DAILY 90 Days #90 tab 02/20/25 [Rx] Metoprolol Succinate (ER) [Toprol XL] 50 mg PO DAILY 90 Days #90 tab 06/07/25 [Rx] Sacubitril/Valsartan [Entresto 24 mg-26 mg Tablet] 1 each PO BID #60 tab 02/20/25 [Rx] Spironolactone [Aldactone] 25 mg PO DAILY #30 tab 02/20/25 [Rx] Ticagrelor [Brilinta] 90 mg PO BID 30 Days #30 tab 02/20/25 [Rx] Follow up Appointment(s)/Referral(s): Clayton Silverio MD [Medical Doctor] - 1 Week Ron Piedra MD [STAFF PHYSICIAN] - 02/24/25 3:30 pm (PATIENT IS TO KEEP THE FOLLOW UP APPOINTMENT THAT WAS ALREADY SCHEDULED FOR FEBRUARY 24, 2025 AT 3:30 PM. ) Activity/Diet/Wound Care/Special Instructions: rescheduling cardiac catheterization for , February 25. office/hospital will be in contact with you about arrival times. please drink lots of water prior to procedure. stop eliquis 2 days prior to procedure. please continue all medications including insulin as scheduled.
[2025-02-20] MEDS ORDERED: BUMETANIDE 1 MG TAB PO SCH (21:00)
[2025-02-21] MEDS ORDERED: METOPROLOL SUCCINATE (ER) 50 MG TAB.ER.24H PO SCH (09:00)
--- NOTE | 2025-03-04 08:45 | CDI ---
Documentation Clarification Form Date: 03/04/25 From: Krystyna Rowley Admit Date: 02/18/2025 06:28:00 AM Patient Name: Estela Gilbert Visit Number: [id number] Discharge Date: 02/20/2025 04:24:00 PM ATTENTION: The Clinical Documentation Specialists (CDI) and [facility] Coding Staff appreciate your assistance in clarifying documentation. Please respond to the clarification below the line at the bottom and electronically sign. The CDI & [facility] Coding staff will review the response and follow-up if needed. Please note: Queries are made part of the Legal Health Record. If you have any questions, please contact the author of this message via ITS. Doctor/Provider: Clayton Silverio, Your patient has the documented diagnosis of reduced systolic function heart failure per history & Physical. Additional information regarding the acuity of CHF is requested. History/Risk Factors: Dilated ischemic cardiomyopathy, CAD and poorly controlled T2 DM. Clinical Indicators: VS/Pulse OX: BNP: 6421 Outside Echo: Her echo showed an EF of 5% withdilatedLV with globallyreducedsystolic function, mild MR, mild TR, smallpericardial effusion. Treatment: Oral: Bumex, Entresto, Farxiga, Aldactone In your professional opinion, can you please clarify the acuity of CHF if known? [ ] Acute Systolic Heart Failure (reduced EF) [ X] Chronic Systolic Heart Failure (reduced EF) [ ] Acute on Chronic Systolic Heart Failure (reduced EF) [ ] Other, please specify [ ] Unable to determine MTDD
== END 2025-02-20 16:24 | disposition home or self-care (01) | DRG 178 ==
LOC: CATHCVL 06:27 → 2SICU 06:28 → CATHCVL 08:20 → 6NMEDSUR 08:20 → UNDOFXSDCSVC 02-19 11:00 → 2SICU 02-19 11:00 → CATHCVL 02-20 16:24
PROVIDERS: ADMIT Internal Medicine Interventional Cardiology; ATTEND Internal Medicine Interventional Cardiology
PROC: 4A023N7 Measurement of Cardiac Sampling and Pressure, Left Heart, Percutaneous Approach (ICD-10-PCS; principal; 2025-02-19 10:30)
PROC: 02HA3RJ Insertion of Short-term External Heart Assist System into Heart, Intraoperative, Percutaneous Approach (ICD-10-PCS; principal; 2025-02-19 10:30)
PROC: B240ZZ3 Ultrasonography of Single Coronary Artery, Intravascular (ICD-10-PCS; principal; 2025-02-19 10:30)
PROC: B2101ZZ Fluoroscopy of Single Coronary Artery using Low Osmolar Contrast (ICD-10-PCS; principal; 2025-02-19 10:30)
PROC: 5A0221D Assistance with Cardiac Output using Impeller Pump, Continuous (ICD-10-PCS; principal; 2025-02-19 10:30)
PROC: 027035Z Dilation of Coronary Artery, One Artery with Two Drug-eluting Intraluminal Devices, Percutaneous Approach (ICD-10-PCS; principal; 2025-02-19 10:30)
DX: I42.0 Dilated cardiomyopathy (principal); I11.0 Hypertensive heart disease with heart failure; I50.22 Chronic systolic (congestive) heart failure; I25.5 Ischemic cardiomyopathy; I25.10 Atherosclerotic heart disease of native coronary artery without angina pectoris; E11.65 Type 2 diabetes mellitus with hyperglycemia; E78.5 Hyperlipidemia, unspecified; K21.9 Gastro-esophageal reflux disease without esophagitis; G40.409 Other generalized epilepsy and epileptic syndromes, not intractable, without status epilepticus; F41.9 Anxiety disorder, unspecified; J45.909 Unspecified asthma, uncomplicated; G43.909 Migraine, unspecified, not intractable, without status migrainosus; Z79.01 Long term (current) use of anticoagulants; Z79.82 Long term (current) use of aspirin; Z79.51 Long term (current) use of inhaled steroids; Z79.84 Long term (current) use of oral hypoglycemic drugs; Z79.4 Long term (current) use of insulin; Z79.899 Other long term (current) drug therapy; Z86.73 Personal history of transient ischemic attack (TIA), and cerebral infarction without residual deficits; Z86.718 Personal history of other venous thrombosis and embolism; Z86.14 Personal history of Methicillin resistant Staphylococcus aureus infection
CPT/HCPCS: 33990; 80048; 80053; 80061; 83735; 83880; 84132; 85025; 85027; 92978; 93005; 94640

== ENCOUNTER 2025-02-23 19:29 | Inpatient (IN) | payer OTHER ==
--- NOTE | 2025-02-23 20:03 | ED ---
General Adult HPI - General Source: patient, family, RN notes reviewed Mode of arrival: wheelchair Limitations: no limitations <Ifeoma Tolbert - Last Filed: 02/23/25 20:01> - General Source: patient, family, RN notes reviewed, old records reviewed Mode of arrival: wheelchair Limitations: no limitations - History of Present Illness -: days(s) Location: abdomen Radiation: abdomen Severity scale (1-10): 7 Quality: sharp Consistency: intermittent Improves with: cold therapy Worsens with: none Associated Symptoms: loss of appetite, nausea/vomiting, shortness of breath, weakness Treatments Prior to Arrival: none <Jose Mccracken - Last Filed: 02/28/25 16:55> - General Chief complaint: Chest Pain Stated complaint: Chest Pain,Sob,Vomiting Time Seen by Provider: 02/23/25 20:01 - History of Present Illness Initial comments: Quick note: 44-year-old female presented the ER for evaluation of chest pain. Patient states she underwent cardiac catheterization with Dr. Fam and Dr. Silverio on Saturday. She states she had 2 stents placed. She states this afternoon she started to experience pain to right groin radiating up through her abdomen into her chest. She also reports nausea and vomiting along with shortness of breath. Patient also reports bilateral calf swelling with a history of CHF. She has been taking her diuretic. She denies any fevers or chills. (Ifeoma Tolbert) This is a 44-year-old female to the ER for evaluation patient comes in today for evaluation of chest pain recent heart catheterization with 2 stents placed. Patient has nausea vomiting chest pain today (Jose Mccracken) - Related Data Home Medications Medication Instructions Recorded Confirmed HYDROcodone/APAP 10-325MG [[place] 1 tab PO TID PRN 01/14/18 02/24/25 10-325] levETIRAcetam [Keppra] 500 mg PO DAILY 08/29/23 02/24/25 Albuterol Nebulized [Ventolin 2.5 mg INHALATION RT-QID PRN 11/04/24 02/24/25 Nebulized] Apixaban [Eliquis] 5 mg PO BID 11/04/24 02/24/25 Budesonide/Formoterol Fumarate 2 puff INHALATION RT-DAILY 11/04/24 02/24/25 [Symbicort 160-4.5 Mcg Inhaler] Pantoprazole [Protonix] 40 mg PO DAILY 12/21/24 02/24/25 Naproxen [Naprosyn] 500 mg PO BID PRN 12/31/24 02/24/25 Insulin Glargine (Lantus) [Lantus 20 unit SQ DAILY@0700 02/17/25 02/24/25 Vial] Sacubitril/Valsartan [Entresto 24 1 tab PO BID 02/24/25 02/24/25 mg-26 mg Tablet] Previous Rx's Medication Instructions Recorded Aspirin 81 mg PO DAILY #30 tab 01/29/25 Atorvastatin [Lipitor] 40 mg PO DAILY #30 tab 01/29/25 Bumetanide [BUMEX] 1 mg PO DAILY #30 tab 01/29/25 Dapagliflozin Propanediol [Farxiga] 10 mg PO DAILY 90 Days #90 tab 02/20/25 Metoprolol Succinate (ER) [Toprol 50 mg PO DAILY 90 Days #90 tab 02/20/25 XL] Spironolactone [Aldactone] 25 mg PO DAILY #30 tab 02/20/25 Ticagrelor [Brilinta] 90 mg PO BID 30 Days #30 tab 02/20/25 Metoclopramide HCl [Reglan] 5 mg PO TID PRN #20 tab 02/27/25 Ondansetron Odt [Zofran ODT] 4 mg PO TID PRN #20 tab 02/27/25 Allergies Allergy/AdvReac Type Severity Reaction Status Date / Time Penicillins Allergy Nausea & Verified 02/18/25 06:58 Vomiting, rash codeine AdvReac Nausea & Verified 02/18/25 06:58 Vomiting morphine AdvReac Nausea & Verified 02/18/25 06:58 Vomiting Sulfa (Sulfonamide AdvReac Nausea & Verified 02/18/25 06:58 Antibiotics) Vomiting, rash tramadol AdvReac Per Verified 02/18/25 06:58 patient, cannot take with Keppra Review of Systems ROS Other: All systems not noted in ROS Statement are negative. <Ifeoma Tolbert - Last Filed: 02/23/25 20:01> ROS Other: All systems not noted in ROS Statement are negative. <Jose Mccracken - Last Filed: 02/28/25 16:55> ROS Statement: Those systems with pertinent positive or pertinent negative responses have been documented in the HPI. Past Medical History Past Medical History: Asthma, Heart Failure, CVA/TIA, Diabetes Mellitus, GI Bleed, Pneumonia, Seizure Disorder Additional Past Medical History / Comment(s): bilateral pleural effusion, 09/2024 bilateral hip and ankle bursitis, 3 discs in lower back deteroitrating and 2 bulging. History of Any Multi-Drug Resistant Organisms: MRSA, None Reported Date of last positivie culture/infection: 2011 MDRO Source:: Lungs Past Surgical History: Section, Cholecystectomy, Tubal Ligation Additional Past Surgical History / Comment(s): Colonoscopies, right groin mole remove, kidney stones surgically removed, bilateral cataracts removed, glaucoma surgery, bilateral retinal surgery for bleeding, bilateral thoracentesis. Past Anesthesia/Blood Transfusion Reactions: No Reported Reaction Past Psychological History: Anxiety Smoking Status: Never smoker Past Alcohol Use History: None Reported Past Drug Use History: None Reported - Past Family History Father Family Medical History: Cancer, Diabetes Mellitus Additional Family Medical History / Comment(s): COLON CANCER, MELANOMA ON HIS CHEST AND HE ALSO HAS BENIGN BRAIN TUMORS X2, pancreatic cancer. Mother Family Medical History: Cancer, Diabetes Mellitus, Dialysis, Myocardial Infarction (DC) Additional Family Medical History / Comment(s): MELANOMA THAT METASTASIZED TO THE BRAIN- AT AGE 49. Mother had an DC at age 34 with angioplasty at age 36 yrs and another DC, and history of diabetes. Patient has many aunts, uncles and nieces with diabetes on her mother's side. Brother(s) Family Medical History: Cancer Additional Family Medical History / Comment(s): Patient has one half-brother with kidney stones, full brother with no major medical problems. Patient has 1 sister with no major medical problems. Daughter(s) Family Medical History: Seizure Disorder Additional Family Medical History / Comment(s): Patient has 2 daughters and her youngest daughter has history of seizure disorder. Patient has one son with no major medical problems. <Ifeoma Tolbert - Last Filed: 02/23/25 20:01> General Exam Limitations: no limitations <Ifeoma Tolbert - Last Filed: 02/23/25 20:01> General appearance: alert, in no apparent distress, anxious Head exam: Present: atraumatic, normocephalic, normal inspection Eye exam: Present: normal appearance, PERRL, EOMI. Absent: scleral icterus, conjunctival injection, periorbital swelling ENT exam: Present: normal exam, mucous membranes moist Neck exam: Present: normal inspection. Absent: tenderness, meningismus, lymphadenopathy Respiratory exam: Present: normal lung sounds bilaterally. Absent: respiratory distress, wheezes, rales, rhonchi, stridor Cardiovascular Exam: Present: normal rhythm, tachycardia, normal heart sounds. Absent: systolic murmur, diastolic murmur, rubs, gallop, clicks GI/Abdominal exam: Present: soft, normal bowel sounds. Absent: distended, tenderness, guarding, rebound, rigid Extremities exam: Present: normal inspection, full ROM, normal capillary refill. Absent: tenderness, pedal edema, joint swelling, calf tenderness Back exam: Present: normal inspection Neurological exam: Present: alert, oriented X3, CN II-XII intact Psychiatric exam: Present: normal affect, normal mood Skin exam: Present: warm, dry, intact, normal color. Absent: rash <Jose Mccracken - Last Filed: 02/28/25 16:55> - General Exam Comments Initial Comments: Visual Physical Exam Vital signs reviewed General: Ill-appearing, nontoxic, no acute distress. Head: Normocephalic, atraumatic Eyes: PERRLA, EOMI ENT: Airway patent Chest: Nonlabored breathing Skin: No visual rash, pale Neuro: Alert and oriented 3 Musculoskeletal: No gross abnormalities (Ifeoma Tolbert) Course <Jose Mccracken - Last Filed: 02/28/25 16:55> Vital Signs 02/23/25 02/23/25 02/23/25 19:36 21:51 23:30 Temperature 98.1 F Pulse Rate 112 H 102 H 105 H Pulse Rate [ Clinical Material Handler ] Respiratory 18 18 19 Rate Blood Pressure 164/106 177/112 165/117 Blood Pressure [Right Arm] O2 Sat by Pulse 98 94 L 96 Oximetry 02/24/25 02/24/25 02/24/25 01:35 03:13 05:00 Temperature Pulse Rate 113 H 96 107 H Pulse Rate [ Clinical Material Handler ] Respiratory 18 18 17 Rate Blood Pressure 166/114 118/80 161/103 Blood Pressure [Right Arm] O2 Sat by Pulse 95 92 L 99 Oximetry 02/24/25 09:02 Temperature Pulse Rate Pulse Rate [ 109 H Clinical Material Handler ] Respiratory 18 Rate Blood Pressure Blood Pressure 166/108 [Right Arm] O2 Sat by Pulse 98 Oximetry - Reevaluation(s) Reevaluation #1: 02/23/25 21:38 Medical records reviewed (Jose Mccracken) Reevaluation #2: 02/23/25 21:38 Patient still with chest pain nausea vomiting here in the ER (Jose Mccracken) Reevaluation #3: 02/23/25 21:39 Patient informed of results questions answered (Jose Mccracken) Reevaluation #4: Was pt. sent in by a medical professional or institution (EVIE Killian, PROFESSOR COMPUTER SCIENCE, urgent care, hospital, or care home...) When possible be specific @ -no Did you speak to anyone other than the patient for history (EMS, parent, family, police, friend...)? What history was obtained from this source @ -no Did you review nursing and triage notes (agree or disagree)? Why? @ -agree Are old charts reviewed (outside hosp., previous admission, EMS record, old EKG, old radiological studies, urgent care reports/EKG's, care home records)? Report findings @ -yes Differential Diagnosis (chest pain, altered mental status, abdominal pain women, abdominal pain men, vaginal bleeding, weakness, fever, dyspnea, syncope, headache, dizziness, GI bleed, back pain, seizure, CVA, palpatations, mental health, musculoskeletal)? @ -prior EKG interpreted by me (3pts min.). @ -yes X-rays interpreted by me (1pt min.). @ -yes negative for acute disease CT interpreted by me (1pt min.). @ -no U/S interpreted by me (1pt. min.). @ -no What testing was considered but not performed or refused? (CT, X-rays, U/S, labs)? Why? @ -none What meds were considered but not given or refused? Why? @ -none Did you discuss the management of the patient with other professionals (professionals i.e. EVIE Killian, PROFESSOR COMPUT[employer]ENCE, lab, RT, psych nurse, social media project manager, occupational health nurse supervisor, teacher, chief legal officer, case management social worker)? Give summary @ -no Was smoking cessation discussed for >3mins.? @ -no Was critical care preformed (if so, how long)? @ -[id number] Were there social determinants of health that impacted care today? How? (Homelessness, low income, unemployed, alcoholism, drug addiction, transportation, low edu. Level, literacy, decrease access to med. care, nursing home, rehab)? @ -none Was there de-escalation of care discussed even if they declined (Discuss DNR or withdrawal of care, Hospice)? DNR status @ -no What co-morbidities impacted this encounter? (DM, HTN, Smoking, COPD, CAD, C ancer, CVA, ARF, Chemo, Hep., AIDS, mental health diagnosis, sleep apnea, morbid obesity)? @ -none Was patient admitted / discharged? Hospital course, mention meds given and route, prescriptions, significant lab abnormalities, going to OR and other pertinent info. @ - 44 female to ER for evaluation patient is of recent stent placement coming in with chest pain today chest pain with nausea vomiting, patient will rule out ACS Admitted Undiagnosed new problem with uncertain prognosis? @ -no Drug Therapy requiring intensive monitoring for toxicity (Heparin, Nitro, Insul in, Cardizem)? @ -no Were any procedures done? @ -no Diagnosis/symptom? @ -Chest pain, CAD, rule out ACS Acute, or Chronic, or Acute on Chronic? @ -Acute Uncomplicated (without systemic symptoms) or Complicated (systemic symptoms)? @ -Complicated Side effects of treatment? @ -no Exacerbation, Progression, or Severe Exacerbation? @ -exacerbation Poses a threat to life or bodily function? How? (Chest pain, USA, DC, pneumonia, PE, COPD, DKA, ARF, appy, cholecystitis, CVA, Diverticulitis, Homicidal, Suicidal, threat to staff... and all critical care pts) @ -yes with chest pain CAD (Jose Mccracken) Reevaluation #5: Differential Chest Pain: Stable Angina, Unstable Angina, STEMI, NSTEMI Aortic Dissection, Pneumothorax, Musculoskeletal, Esophageal Spasm GERD, Cholecystitis, Pancreatitis, Zoster, this is not meant to be an all-inclusive list. (Jose Mccracken) - Consultations Consultation #1: Spoke with [facility] who agrees to admit this patient (Jose Mccracken) EKG Findings - EKG Comments: EKG Findings:: EKG is sinus tachycardia [address] 152 QRS 85 QTc 388 - EKG Results: EKG: interpreted by ERMD <Jose Mccracken - Last Filed: 02/28/25 16:55> Medical Decision Making <Ifeoma Tolbert - Last Filed: 02/23/25 20:01> - Lab Data Result diagrams: 02/25/25 10:53 02/27/25 06:01 - Radiology Data Radiology results: report reviewed (Chest x-ray is negative for acute disease), image reviewed <Jose Mccracken - Last Filed: 02/28/25 16:55> - Medical Decision Making I performed the quick note portion of this chart. Electronically signed by Ifeoma Tolbert PA-C (Ifeoma Tolbert) 44 female to ER for evaluation patient is of recent stent placement coming in with chest pain today chest pain with nausea vomiting, patient will rule out ACS (Jose Mccracken) - Lab Data Lab Results 02/23/25 02/23/25 02/23/25 Range/Units 20:45 20:45 20:45 WBC 6.82 (4.50-10.00) 10*3/uL RBC 5.25 H (4.10-5.20) 10*6/uL Hgb 12.6 (12.0-15.0) g/dL Hct 41.0 (37.2-46.3) % MCV 78.1 L (80.0-97.0) fL MCH 24.0 L (27.0-32.0) pg MCHC 30.7 L (32.0-37.0) g/dL Plt Count 279 (140-440) 10*3/uL MPV 9.5 (9.5-12.2) fL Immature Gran % (Auto) 0.4 % Neutrophils % 76.6 % Lymphocytes % 11.1 % Monocytes % 7.6 % Eosinophils % 3.1 % Basophils % 1.2 % Immature Gran # 0.03 (0.00-0.04) 10*3/uL Neutrophils # 5.22 (1.80-7.70) 10*3/uL Lymphocytes # 0.76 L (0.90-5.00) 10*3/uL Monocytes # 0.52 (0.20-1.00) 10*3/uL Eosinophils # 0.21 (0.04-0.35) 10*3/uL Basophils # 0.08 (0.00-0.10) 10*3/uL PT 10.7 (10.0-12.5) sec INR 1.0 (<1.2) APTT 23.7 (22.0-30.0) sec Sodium 131 L (137-145) mmol/L Potassium 5.2 H (3.5-5.1) mmol/L Chloride 97 L (98-107) mmol/L Carbon Dioxide 27 (22-30) mmol/L Anion Gap 7 mmol/L BUN 21 H (7-17) mg/dL Creatinine 0.57 (0.52-1.04) mg/dL Est GFR (CKD-EPI)AfAm >90 (>60 ml/min/1.73 sqM) Est GFR (CKD-EPI)NonAf >90 (>60 ml/min/1.73 sqM) Glucose 334 H (74-99) mg/dL Calcium 10.4 H (8.4-10.2) mg/dL Magnesium 1.9 (1.6-2.3) mg/dL Total Bilirubin 0.7 (0.2-1.3) mg/dL AST 33 (14-36) U/L ALT 22 (4-34) U/L Alkaline Phosphatase 245 H (38-126) U/L Troponin I (0.000-0.034) ng/mL NT-Pro-B Natriuret Pep 8440 pg/mL Total Protein 7.0 (6.3-8.2) g/dL Albumin 3.4 L (3.5-5.0) g/dL Lipase (23-300) U/L 02/23/25 02/23/25 Range/Units 20:45 20:45 WBC (4.50-10.00) 10*3/uL RBC (4.10-5.20) 10*6/uL Hgb (12.0-15.0) g/dL Hct (37.2-46.3) % MCV (80.0-97.0) fL MCH (27.0-32.0) pg MCHC (32.0-37.0) g/dL Plt Count (140-440) 10*3/uL MPV (9.5-12.2) fL Immature Gran % (Auto) % Neutrophils % % Lymphocytes % % Monocytes % % Eosinophils % % Basophils % % Immature Gran # (0.00-0.04) 10*3/uL Neutrophils # (1.80-7.70) 10*3/uL Lymphocytes # (0.90-5.00) 10*3/uL Monocytes # (0.20-1.00) 10*3/uL Eosinophils # (0.04-0.35) 10*3/uL Basophils # (0.00-0.10) 10*3/uL PT (10.0-12.5) sec INR (<1.2) APTT (22.0-30.0) sec Sodium (137-145) mmol/L Potassium (3.5-5.1) mmol/L Chloride (98-107) mmol/L Carbon Dioxide (22-30) mmol/L Anion Gap mmol/L BUN (7-17) mg/dL Creatinine (0.52-1.04) mg/dL Est GFR (CKD-EPI)AfAm (>60 ml/min/1.73 sqM) Est GFR (CKD-EPI)NonAf (>60 ml/min/1.73 sqM) Glucose (74-99) mg/dL Calcium (8.4-10.2) mg/dL Magnesium (1.6-2.3) mg/dL Total Bilirubin (0.2-1.3) mg/dL AST (14-36) U/L ALT (4-34) U/L Alkaline Phosphatase (38-126) U/L Troponin I 0.058 H* (0.000-0.034) ng/mL NT-Pro-B Natriuret Pep pg/mL Total Protein (6.3-8.2) g/dL Albumin (3.5-5.0) g/dL Lipase 194 (23-300) U/L Critical Care Time Critical Care Time: Yes Total Critical Care Time: 31 <Jose Mccracken - Last Filed: 02/28/25 16:55> Disposition <Ifeoma Tolbert - Last Filed: 02/23/25 20:01> Is patient prescribed a controlled substance at d/c from ED?: No Time of Disposition: 21:45 <Jose Mccracken - Last Filed: 02/28/25 16:55> Clinical Impression: Chest pain, Intractable nausea and vomiting, Dehydration, CAD (coronary artery disease) Disposition: ADMITTED IP TO THIS HOSP Condition: Fair
[2025-02-23 21:02] LABS: Basophils # (A) 0.08 10*3/uL (0.00-0.10); Basophils % (A) 1.2 %; Eosinophils # (A) 0.21 10*3/uL (0.04-0.35); Eosinophils % (A) 3.1 %; HGB 12.6 g/dL (12.0-15.0); Lymphocytes # (A) 0.76 10*3/uL (0.90-5.00); Lymphocytes % (A) 11.1 %; MCHC 30.7 g/dL (32.0-37.0); MCV 78.1 fL (80.0-97.0); Mean Platelet Volume 9.5 fL (9.5-12.2); Monocytes # (A) 0.52 10*3/uL (0.20-1.00); Monocytes % (A) 7.6 %; Neutrophils # (A) 5.22 10*3/uL (1.80-7.70); Neutrophils % (A) 76.6 %; Platelet Count 279 10*3/uL (140-440); RBC 5.25 10*6/uL (4.10-5.20); RDW 19.7 % (11.5-14.5); WBC 6.82 10*3/uL (4.50-10.00)
--- NOTE | 2025-02-23 21:14 | XR ---
EXAMINATION TYPE: XR chest 2V DATE OF EXAM: 02/23/2025 9:07 PM COMPARISON: 01/27/2025 CLINICAL INDICATION: Female, 44 years old with history of Chest Pain, TECHNIQUE: XR chest 2V view(s) obtained. FINDINGS: The heart size is enlarged. The pulmonary vasculature is normal. The lungs are clear. IMPRESSION: 1. No acute pulmonary process. [facility], , 02/23/2025 9:12 PM
[2025-02-23 21:18] LABS: Partial Thromboplastin Time 23.7 sec (22.0-30.0); Prothrombin Time 10.7 sec (10.0-12.5)
[2025-02-23 21:21] LABS: ALT 22 U/L (4-34); AST 33 U/L (14-36); African American GFR (CKD) >90 (>60 ml/min/1.73 sqM); Albumin 3.4 g/dL (3.5-5.0); Alkaline Phosphatase 245 U/L (38-126); Anion Gap 7 mmol/L; Blood Urea Nitrogen 21 mg/dL (7-17); Calcium 10.4 mg/dL (8.4-10.2); Carbon Dioxide 27 mmol/L (22-30); Chloride 97 mmol/L (98-107); Glucose 334 mg/dL (74-99); Magnesium 1.9 mg/dL (1.6-2.3); Non-African American GFR(CKD) >90 (>60 ml/min/1.73 sqM); Potassium 5.2 mmol/L (3.5-5.1); Sodium 131 mmol/L (137-145); Total Bilirubin 0.7 mg/dL (0.2-1.3)
[2025-02-23 21:28] LABS: NT-Pro-B-Type Natriuretic Pept 8440 pg/mL
[2025-02-23] MEDS ORDERED: NALOXONE 0.4 MG/ML 1 ML VIAL IV PRN (21:29)
[2025-02-23] MEDS: SODIUM CHLORIDE 0.9% 1,000 ML IV ONE (21:39)
[2025-02-23] MEDS: ONDANSETRON 4 MG/2 ML VIAL IVP STA (21:39)
[2025-02-23] MEDS: HYDROmorphone 1 MG/ML 1 ML SYRINGE IVP STA (21:40)
[2025-02-23] MEDS: SODIUM CHLORIDE 0.9% 1,000 ML IV STA (23:19)
[2025-02-23] MEDS: ONDANSETRON 4 MG/2 ML VIAL IVP PRN (23:26)
[2025-02-24] MEDS: HYDROmorphone 1 MG/ML 1 ML SYRINGE IVP PRN ×2 (01:31→16:09)
[2025-02-24] MEDS: hydrALAZINE HCL 20 MG/ML 1 ML VIAL IVP STA (01:32)
[2025-02-24 06:36] LABS: Basophils % (A) 1.5 %; Eosinophils # (A) 0.06 10*3/uL (0.04-0.35); Eosinophils % (A) 0.9 %; HCT 39.4 % (37.2-46.3); HGB 11.8 g/dL (12.0-15.0); Lymphocytes # (A) 0.59 10*3/uL (0.90-5.00); Lymphocytes % (A) 8.7 %; MCH 23.9 pg (27.0-32.0); MCHC 29.9 g/dL (32.0-37.0); MCV 79.9 fL (80.0-97.0); Mean Platelet Volume 9.7 fL (9.5-12.2); Monocytes # (A) 0.35 10*3/uL (0.20-1.00); Monocytes % (A) 5.2 %; Neutrophils # (A) 5.64 10*3/uL (1.80-7.70); Neutrophils % (A) 83.4 %; Platelet Count 280 10*3/uL (140-440); RBC 4.93 10*6/uL (4.10-5.20); RDW 19.6 % (11.5-14.5); WBC 6.76 10*3/uL (4.50-10.00)
[2025-02-24 06:58] LABS: ALT 21 U/L (4-34); AST 25 U/L (14-36); African American GFR (CKD) >90 (>60 ml/min/1.73 sqM); Alkaline Phosphatase 248 U/L (38-126); Anion Gap 8 mmol/L; Blood Urea Nitrogen 22 mg/dL (7-17); Calcium 9.9 mg/dL (8.4-10.2); Carbon Dioxide 26 mmol/L (22-30); Chloride 100 mmol/L (98-107); Glucose 313 mg/dL (74-99); Non-African American GFR(CKD) >90 (>60 ml/min/1.73 sqM); Phosphorus 4.3 mg/dL (2.5-4.5); Potassium 4.9 mmol/L (3.5-5.1); Sodium 134 mmol/L (137-145); Total Bilirubin 0.5 mg/dL (0.2-1.3); Total Protein 6.4 g/dL (6.3-8.2)
[2025-02-24] MEDS: PANTOPRAZOLE 40 MG/10 ML VIAL IV SCH (08:57)
--- NOTE | 2025-02-24 11:02 | P.CRDCN ---
History of Present Illness Consult date: 02/24/25 History of present illness: History of Present Illness: The patient is a 44-year-old female with a known history of severe ischemic cardiomyopathy, longstanding diabetes mellitus underwent stenting of her LAD last week by Dr. Piedra and presents with nausea and vomiting. She has a history of gastroparesis with prior history of nausea and vomiting that has been going on for quite a while on and off. She has some discomfort in the chest on her way to the hospital but appears to be worse with the nausea and vomiting. She has occasional dizziness. She has chronic dyspnea on exertion and peripheral edema. Echocardiogram showed an ejection fraction of 20 to 25% with mild mitral and moderate tricuspid regurgitation. Her cardiac catheterization revealed severe disease in the proximal LAD with diffuse moderate disease in the left circumflex and the RCA. She underwent Impella supported stenting of the LAD, receiving 2 stents. Chronic peripheral edema, no recent PND orthopnea. She has no history of stroke or seizure. The emergency room she was in sinus mechanism with no acute segment changes. Her troponin was mildly elevated and her NT proBNP was 8440. Medications: Aspirin, Entresto 2426 twice a day, metoprolol succinate 50 mg daily, Farxiga, Brilinta 90 mg twice a day, Eliquis 5 mg twice a day, Lipitor 40 mg daily, aspirin once a day, Bumex 1 mg daily, Ventolin Review of Systems: Respiratory: She has chronic dyspnea on exertion with occasional cough GI: She has gastroparesis with nausea and vomiting, chronic : No hematuria or dysuria. Nervous System: No stroke or seizure. Physical Examination: 44-year-old female, alert oriented nauseated appears older than stated age,Blood pressure 160/100, Heart rate 95 Head: Normocephalic. Eyes: Sclerae nonicteric. Neck: Good carotid upstroke, no bruit, no jugular venous distention. Lungs: Decreased breath sounds bilaterally Heart: Regular rate and rhythm, S1-S2, no S3, no rub. Systolic ejection murmur. Abdomen: Soft, minimal right abdominal discomfort, positive bowel sounds no organomegaly. Extremities: +1 edema, intact distal pulses. Ulceration noted Labs: Hemoglobin 11.8, BUN 22, creatinine 0.66, blood sugar 313, troponin 0.058, 0.056, 0.060. NT proBNP 8440 EKG: Sinus mechanism with nonspecific ST-T wave changes, left axis deviation rate of 112 Impression: 1. Nausea and vomiting related to gastroparesis, physical examination shows no significant abdominal discomfort 2. Status post recent stenting of the LAD, Impella supported 3. Mild troponin elevation secondary to the recent intervention, no evidence to suggest acute stent thrombosis 4. Severe cardiomyopathy with CHF and impaired systolic function 5. Longstanding history of diabetes Plan: 1. GI workup regarding the gastroparesis 2. Resume aspirin and Brilinta for now, hold Eliquis pending GI workup 3. Resume beta-benny, Entresto and diuresis 4. Follow renal functions 5. Depending on her progress further recommendations will be made, thank you for this consult we will follow with you. Past Medical History Past Medical History: Asthma, Heart Failure, CVA/TIA, Diabetes Mellitus, GI Bleed, Pneumonia, Seizure Disorder Additional Past Medical History / Comment(s): bilateral pleural effusion, 09/2024 bilateral hip and ankle bursitis, 3 discs in lower back deteroitrating and 2 bulging. History of Any Multi-Drug Resistant Organisms: MRSA, None Reported Date of last positivie culture/infection: 2011 MDRO Source:: Lungs Past Surgical History: Section, Cholecystectomy, Tubal Ligation Additional Past Surgical History / Comment(s): Colonoscopies, right groin mole remove, kidney stones surgically removed, bilateral cataracts removed, glaucoma surgery, bilateral retinal surgery for bleeding, bilateral thoracentesis. Past Anesthesia/Blood Transfusion Reactions: No Reported Reaction Past Psychological History: Anxiety Smoking Status: Never smoker Past Alcohol Use History: None Reported Past Drug Use History: None Reported - Past Family History Father Family Medical History: Cancer, Diabetes Mellitus Additional Family Medical History / Comment(s): COLON CANCER, MELANOMA ON HIS CHEST AND HE ALSO HAS BENIGN BRAIN TUMORS X2, pancreatic cancer. Mother Family Medical History: Cancer, Diabetes Mellitus, Dialysis, Myocardial Infarction (AK) Additional Family Medical History / Comment(s): MELANOMA THAT METASTASIZED TO THE BRAIN- AT AGE 49. Mother had an AK at age 34 with angioplasty at age 36 yrs and another AK, and history of diabetes. Patient has many aunts, uncles and nieces with diabetes on her mother's side. Brother(s) Family Medical History: Cancer Additional Family Medical History / Comment(s): Patient has one half-brother with kidney stones, full brother with no major medical problems. Patient has 1 sister with no major medical problems. Daughter(s) Family Medical History: Seizure Disorder Additional Family Medical History / Comment(s): Patient has 2 daughters and her youngest daughter has history of seizure disorder. Patient has one son with no major medical problems. Medications and Allergies Home Medications Medication Instructions Recorded Confirmed Type HYDROcodone/APAP 10-325MG [[place] 1 tab PO TID PRN 01/14/18 02/24/25 History 10-325] levETIRAcetam [Keppra] 500 mg PO DAILY 08/29/23 02/24/25 History Ondansetron Odt [Zofran ODT] 4 mg PO TID PRN 04/06/24 02/24/25 History Albuterol Nebulized [Ventolin 2.5 mg INHALATION RT-QID PRN 11/04/24 02/24/25 History Nebulized] Apixaban [Eliquis] 5 mg PO BID 11/04/24 02/24/25 History Budesonide/Formoterol Fumarate 2 puff INHALATION RT-DAILY 11/04/24 02/24/25 History [Symbicort 160-4.5 Mcg Inhaler] Pantoprazole [Protonix] 40 mg PO DAILY 12/21/24 02/24/25 History Naproxen [Naprosyn] 500 mg PO BID PRN 12/31/24 02/24/25 History Aspirin 81 mg PO DAILY #30 tab 01/29/25 02/24/25 Rx Atorvastatin [Lipitor] 40 mg PO DAILY #30 tab 01/29/25 02/24/25 Rx Bumetanide [BUMEX] 1 mg PO DAILY #30 tab 01/29/25 02/24/25 Rx Insulin Glargine (Lantus) [Lantus 20 unit SQ DAILY@0700 02/17/25 02/24/25 History Vial] Clopidogrel [Plavix] 75 mg PO DAILY 90 Days #90 tablet 02/20/25 02/24/25 Rx Dapagliflozin Propanediol [Farxiga] 10 mg PO DAILY 90 Days #90 tab 02/20/2508/10 Rx Metoprolol Succinate (ER) [Toprol 50 mg PO DAILY 90 Days #90 tab 02/20/25 02/24/25 Rx XL] Spironolactone [Aldactone] 25 mg PO DAILY #30 tab 02/20/25 02/24/25 Rx Ticagrelor [Brilinta] 90 mg PO BID 30 Days #30 tab 02/20/25 02/24/25 Rx Sacubitril/Valsartan [Entresto 24 1 tab PO BID 02/24/25 02/24/25 History mg-26 mg Tablet] Allergies Allergy/AdvReac Type Severity Reaction Status Date / Time Penicillins Allergy Nausea & Verified 02/18/25 06:58 Vomiting, rash codeine AdvReac Nausea & Verified 02/18/25 06:58 Vomiting morphine AdvReac Nausea & Verified 02/18/25 06:58 Vomiting Sulfa (Sulfonamide AdvReac Nausea & Verified 02/18/25 06:58 Antibiotics) Vomiting, rash tramadol AdvReac Per Verified 02/18/25 06:58 patient, cannot take with Keppra Physical Exam Vitals: Vital Signs Temp Pulse Pulse Resp BP BP Pulse Ox 02/24/25 09:02 109 H 18 166/108 98 02/24/25 05:00 107 H 17 161/103 99 02/24/25 03:13 96 18 118/80 92 L 02/24/25 01:35 113 H 18 166/114 95 02/23/25 23:30 105 H 19 165/117 96 02/23/25 21:51 102 H 18 177/112 94 L 02/23/25 19:36 98.1 F 112 H 18 164/106 98 Intake and Output 02/23/25 02/24/25 02/24/25 22:59 06:59 14:59 Other: Weight 63.503 kg Results 02/24/25 06:23 02/24/25 06:23 Cardiac Enzymes 02/23/25 02/23/25 02/23/25 Range/Units 20:45 20:45 23:54 AST 33 (14-36) U/L Troponin I 0.058 H* 0.056 H* (0.000-0.034) ng/mL 02/24/25 02/24/25 Range/Units 06:23 06:23 AST 25 (14-36) U/L Troponin I 0.060 H* (0.000-0.034) ng/mL Coagulation 02/23/25 Range/Units 20:45 PT 10.7 (10.0-12.5) sec APTT 23.7 (22.0-30.0) sec CBC 02/23/25 02/24/25 Range/Units 20:45 06:23 WBC 6.82 6.76 (4.50-10.00) 10*3/uL RBC 5.25 H 4.93 (4.10-5.20) 10*6/uL Hgb 12.6 11.8 L (12.0-15.0) g/dL Hct 41.0 39.4 (37.2-46.3) % Plt Count 279 280 (140-440) 10*3/uL Comprehensive Metabolic Panel 02/23/25 02/24/25 Range/Units 20:45 06:23 Sodium 131 L 134 L (137-145) mmol/L Potassium 5.2 H 4.9 (3.5-5.1) mmol/L Chloride 97 L 100 (98-107) mmol/L Carbon Dioxide 27 26 (22-30) mmol/L BUN 21 H 22 H (7-17) mg/dL Creatinine 0.57 0.66 (0.52-1.04) mg/dL Glucose 334 H 313 H (74-99) mg/dL Calcium 10.4 H 9.9 (8.4-10.2) mg/dL AST 33 25 (14-36) U/L ALT 22 21 (4-34) U/L Alkaline Phosphatase 245 H 248 H (38-126) U/L Total Protein 7.0 6.4 (6.3-8.2) g/dL Albumin 3.4 L 3.0 L (3.5-5.0) g/dL Current Medications Generic Name Dose Route Start Last Admin Trade Name Freq PRN Reason Stop Dose Admin Hydromorphone HCl 1 mg 02/23/25 21:34 02/24/25 08:58 Hydromorphone 1 Mg/Ml 1 Ml Syringe IVP 1 mg Q3HR PRN Administration Moderate Pain (Scale 4 to 6) Naloxone HCl 0.2 mg 02/23/25 21:29 Naloxone 0.4 Mg/Ml 1 Ml Vial IV Q2M PRN Opioid Reversal Ondansetron HCl 4 mg 02/23/25 21:34 02/24/25 08:57 Ondansetron 4 Mg/2 Ml Vial IVP 4 mg Q8HR PRN Administration Nausea And Vomiting Pantoprazole Sodium 40 mg 02/24/25 09:00 02/24/25 08:57 Pantoprazole 40 Mg/10 Ml Vial IV 40 mg DAILY SUSAN Administration Intake and Output 02/23/25 02/24/25 02/24/25 22:59 06:59 14:59 Other: Weight 63.503 kg 02/24/25 06:23 02/24/25 06:23
[2025-02-24] MEDS ORDERED: ONDANSETRON ODT 4 MG TAB PO PRN (13:33)
--- NOTE | 2025-02-24 13:45 | P.HPIM ---
History of Present Illness 44-year-old with extensive medical history, history of gastroparesis came in with complaints of nausea vomiting is being treated for gastroparesis here supplement supportive and symptomatic care. Patient has extensive cardiac history, severe ischemic cardiomyopathy with EF of around 20 to 25%. Patient also had a recent cardiac catheterization found to have a severe disease in proximal LAD with diffuse moderate disease in left circumflex and RCA. Patient had stenting of LAD received 2 stents to the LAD. Patient's present troponin is mildly elevated secondary to his recent intervention cardiology evaluated the patient patient is euvolemic at this time patient was recently resumed on cardiac medications. Patient does have history of atrial fibrillation for which patient is on Eliquis. REVIEW OF SYSTEMS: All other systems are negative except those mentioned in the HPI PHYSICAL EXAMINATION: GENERAL: The patient is alert and oriented x3, not in any acute distress. Well developed, well nourished. HEENT: Pupils are round and equally reacting to light. EOMI. No scleral icterus. No conjunctival pallor. Normocephalic, atraumatic. No pharyngeal erythema. No thyromegaly. CARDIOVASCULAR: S1 and S2 present. No murmurs, rubs, or gallops. PULMONARY: Chest is clear to auscultation, no wheezing or crackles. ABDOMEN: Soft, nontender, nondistended, normoactive bowel sounds. No palpable organomegaly. MUSCULOSKELETAL: No joint swelling or deformity. EXTREMITIES: No cyanosis, clubbing, or pedal edema. NEUROLOGICAL: Gross neurological examination did not reveal any focal deficits. SKIN: No rashes. Assessment and plan -Severe nausea and vomiting secondary to gastroparesis patient is still having abdominal pain and nausea vomiting patient was started on Reglan with monitoring of QT. Patient does not want any diet at this time patient will remain n.p.o. - Hyponatremia secondary to nausea vomiting mild hypovolemia patient is not on any IV fluids at this time as patient has severe heart failure but if needed will start her on IV fluids. - Congestive heart failure chronic systolic dysfunction without any acute exacerbation at this time patient is on Bumex Farxiga beta-benny Entresto which which were all resumed. - Severe coronary artery disease resumed on home medications for this - Type 2 diabetes mellitus resumed on home medications - Seizure disorder - Asthma without any acute exacerbation -Patient is on anticoagulation with Eliquis I believe for probably atrial fibrillation paroxysmal presently sinus rhythm patient is resumed on this medication DVT prophylaxis: On Eliquis as mentioned above Past Medical History Past Medical History: Asthma, Heart Failure, CVA/TIA, Diabetes Mellitus, GI Bleed, Pneumonia, Seizure Disorder Additional Past Medical History / Comment(s): bilateral pleural effusion, 09/2024 bilateral hip and ankle bursitis, 3 discs in lower back deteroitrating and 2 bulging. History of Any Multi-Drug Resistant Organisms: MRSA, None Reported Date of last positivie culture/infection: 2011 MDRO Source:: Lungs Past Surgical History: Section, Cholecystectomy, Tubal Ligation Additional Past Surgical History / Comment(s): Colonoscopies, right groin mole remove, kidney stones surgically removed, bilateral cataracts removed, glaucoma surgery, bilateral retinal surgery for bleeding, bilateral thoracentesis. Past Anesthesia/Blood Transfusion Reactions: No Reported Reaction Past Psychological History: Anxiety Smoking Status: Never smoker Past Alcohol Use History: None Reported Past Drug Use History: None Reported - Past Family History Father Family Medical History: Cancer, Diabetes Mellitus Additional Family Medical History / Comment(s): COLON CANCER, MELANOMA ON HIS CHEST AND HE ALSO HAS BENIGN BRAIN TUMORS X2, pancreatic cancer. Mother Family Medical History: Cancer, Diabetes Mellitus, Dialysis, Myocardial Infarction ([place]) Additional Family Medical History / Comment(s): MELANOMA THAT METASTASIZED TO THE BRAIN- AT AGE 49. Mother had an ME at age 34 with angioplasty at age 36 yrs and another ME, and history of diabetes. Patient has many aunts, uncles and nieces with diabetes on her mother's side. Brother(s) Family Medical History: Cancer Additional Family Medical History / Comment(s): Patient has one half-brother with kidney stones, full brother with no major medical problems. Patient has 1 sister with no major medical problems. Daughter(s) Family Medical History: Seizure Disorder Additional Family Medical History / Comment(s): Patient has 2 daughters and her youngest daughter has history of seizure disorder. Patient has one son with no major medical problems. Medications and Allergies Home Medications Medication Instructions Recorded Confirmed Type HYDROcodone/APAP 10-325MG [[place] 1 tab PO TID PRN 01/14/18 02/24/25 History 10-325] levETIRAcetam [Keppra] 500 mg PO DAILY 08/29/23 02/24/25 History Ondansetron Odt [Zofran ODT] 4 mg PO TID PRN 04/06/24 02/24/25 History Albuterol Nebulized [Ventolin 2.5 mg INHALATION RT-QID PRN 11/04/24 02/24/25 History Nebulized] Apixaban [Eliquis] 5 mg PO BID 11/04/24 02/24/25 History Budesonide/Formoterol Fumarate 2 puff INHALATION RT-DAILY 11/04/24 02/24/25 History [Symbicort 160-4.5 Mcg Inhaler] Pantoprazole [Protonix] 40 mg PO DAILY 12/21/24 02/24/25 History Naproxen [Naprosyn] 500 mg PO BID PRN 12/31/24 02/24/25 History Aspirin 81 mg PO DAILY #30 tab 01/29/25 02/24/25 Rx Atorvastatin [Lipitor] 40 mg PO DAILY #30 tab 01/29/25 02/24/25 Rx Bumetanide [BUMEX] 1 mg PO DAILY #30 tab 01/29/25 02/24/25 Rx Insulin Glargine (Lantus) [Lantus 20 unit SQ DAILY@0700 02/17/25 02/24/25 History Vial] Clopidogrel [Plavix] 75 mg PO DAILY 90 Days #90 tablet 02/20/25 02/24/25 Rx Dapagliflozin Propanediol [Farxiga] 10 mg PO DAILY 90 Days #90 tab 02/20/25 02/24/25 Rx Metoprolol Succinate (ER) [Toprol 50 mg PO DAILY 90 Days #90 tab 02/20/25 02/24/25 Rx XL] Spironolactone [Aldactone] 25 mg PO DAILY #30 tab 02/20/25 02/24/25 Rx Ticagrelor [Brilinta] 90 mg PO BID 30 Days #30 tab 02/20/25 02/24/25 Rx Sacubitril/Valsartan [Entresto 24 1 tab PO BID 02/24/25 02/24/25 History mg-26 mg Tablet] Allergies Allergy/AdvReac Type Severity Reaction Status Date / Time Penicillins Allergy Nausea & Verified 02/18/25 06:58 Vomiting, rash codeine AdvReac Nausea & Verified 02/18/25 06:58 Vomiting morphine AdvReac Nausea & Verified 02/18/25 06:58 Vomiting Sulfa (Sulfonamide AdvReac Nausea & Verified 02/18/25 06:58 Antibiotics) Vomiting, rash tramadol AdvReac Per Verified 02/18/25 06:58 patient, cannot take with Keppra Physical Exam Vitals: Vital Signs Temp Pulse Pulse Resp BP BP Pulse Ox 02/24/25 09:02 109 H 18 166/108 98 02/24/25 05:00 107 H 17 161/103 99 02/24/25 03:13 96 18 118/80 92 L 02/24/25 01:35 113 H 18 166/114 95 02/23/25 23:30 105 H 19 165/117 96 02/23/25 21:51 102 H 18 177/112 94 L 02/23/25 19:36 98.1 F 112 H 18 164/106 98 Intake and Output 02/23/25 02/24/25 02/24/25 22:59 06:59 14:59 Other: Weight 63.503 kg Results CBC & Chem 7: 02/24/25 06:23 02/24/25 06:23 Labs: Abnormal Lab Results - Last 24 Hours (Table) 02/23/25 02/23/25 02/23/25 Range/Units 20:45 20:45 20:45 RBC 5.25 H (4.10-5.20) 10*6/uL Hgb (12.0-15.0) g/dL MCV 78.1 L (80.0-97.0) fL MCH 24.0 L (27.0-32.0) pg MCHC 30.7 L (32.0-37.0) g/dL Lymphocytes # 0.76 L (0.90-5.00) 10*3/uL Sodium 131 L (137-145) mmol/L Potassium 5.2 H (3.5-5.1) mmol/L Chloride 97 L (98-107) mmol/L BUN 21 H (7-17) mg/dL Glucose 334 H (74-99) mg/dL Calcium 10.4 H (8.4-10.2) mg/dL Alkaline Phosphatase 245 H (38-126) U/L Troponin I 0.058 H* (0.000-0.034) ng/mL Albumin 3.4 L (3.5-5.0) g/dL 02/23/25 02/24/25 02/24/25 Range/Units 23:54 06:23 06:23 RBC (4.10-5.20) 10*6/uL Hgb 11.8 L (12.0-15.0) g/dL MCV 79.9 L (80.0-97.0) fL MCH 23.9 L (27.0-32.0) pg MCHC 29.9 L (32.0-37.0) g/dL Lymphocytes # 0.59 L (0.90-5.00) 10*3/uL Sodium (137-145) mmol/L Potassium (3.5-5.1) mmol/L Chloride (98-107) mmol/L BUN (7-17) mg/dL Glucose (74-99) mg/dL Calcium (8.4-10.2) mg/dL Alkaline Phosphatase (38-126) U/L Troponin I 0.056 H* 0.060 H* (0.000-0.034) ng/mL Albumin (3.5-5.0) g/dL 02/24/25 Range/Units 06:23 RBC (4.10-5.20) 10*6/uL Hgb (12.0-15.0) g/dL MCV (80.0-97.0) fL MCH (27.0-32.0) pg MCHC (32.0-37.0) g/dL Lymphocytes # (0.90-5.00) 10*3/uL Sodium 134 L (137-145) mmol/L Potassium (3.5-5.1) mmol/L Chloride (98-107) mmol/L BUN 22 H (7-17) mg/dL Glucose 313 H (74-99) mg/dL Calcium (8.4-10.2) mg/dL Alkaline Phosphatase 248 H (38-126) U/L Troponin I (0.000-0.034) ng/mL Albumin 3.0 L (3.5-5.0) g/dL
[2025-02-24 17:34] LABS: Glucose,Whole Blood 316 mg/dL (70-110)
[2025-02-24] MEDS: METOCLOPRAMIDE 5 MG/ML 2 ML VIAL IVP PRN (20:41)
[2025-02-24 20:42] LABS: Glucose,Whole Blood 300 mg/dL (70-110)
[2025-02-24] MEDS ORDERED: DEXTROSE 50% SYRINGE 50 ML IVP PRN ×2 (20:52)
[2025-02-24] MEDS: INSULIN LISPRO (HumaLOG) 100 UNIT/ML 10 mL VL SQ SCH (21:03)
[2025-02-25] MEDS: SACUBITRIL/VALSARTAN 24 MG-26 MG TABLET PO SCH (00:11)
[2025-02-25] MEDS: APIXABAN 5 MG TAB PO SCH (00:11)
[2025-02-25] MEDS: INSULIN GLARGINE (LANTUS) 100 UNIT/ML SYR SQ SCH ×2 (00:11→11:34)
[2025-02-25] MEDS: TICAGRELOR 90 MG TAB PO SCH (00:11)
[2025-02-25] MEDS: SYMBICORT 160-4.5 MCG INHALER INHALATION SCH (06:12)
[2025-02-25 06:21] LABS: Glucose,Whole Blood 244 mg/dL (70-110)
[2025-02-25 06:36] LABS: African American GFR (CKD) >90 (>60 ml/min/1.73 sqM); Anion Gap 9 mmol/L; Blood Urea Nitrogen 35 mg/dL (7-17); Calcium 10.6 mg/dL (8.4-10.2); Carbon Dioxide 25 mmol/L (22-30); Chloride 104 mmol/L (98-107); Glucose 267 mg/dL (74-99); Magnesium 2.1 mg/dL (1.6-2.3); Non-African American GFR(CKD) >90 (>60 ml/min/1.73 sqM); Potassium 5.8 mmol/L (3.5-5.1); Sodium 138 mmol/L (137-145)
[2025-02-25] MEDS ORDERED: PANTOPRAZOLE 40 MG TABLET PO SCH (09:00)
[2025-02-25] MEDS: ASPIRIN 81 MG PO SCH (09:16)
[2025-02-25] MEDS: ATORVASTATIN 40 MG TAB PO SCH (09:16)
[2025-02-25] MEDS: DAPAGLIFLOZIN PROPANEDIOL 10 MG TABLET PO SCH (09:16)
[2025-02-25] MEDS: BUMETANIDE 1 MG TAB PO SCH (09:16)
[2025-02-25] MEDS: METOPROLOL SUCCINATE (ER) 50 MG TAB.ER.24H PO SCH (09:16)
[2025-02-25] MEDS: levETIRAcetam 500 MG TAB PO SCH (09:16)
[2025-02-25] MEDS: SPIRONOLACTONE 25 MG TAB PO SCH (09:17)
[2025-02-25 12:25] LABS: Glucose,Whole Blood 207 mg/dL (70-110)
[2025-02-25] MEDS: SODIUM ZIRCONIUM CYCLOSILICATE 10 GM PACKET PO ONE (12:32)
--- NOTE | 2025-02-25 13:58 | P.PN ---
Subjective Progress Note Date: 02/25/25 History of Present Illness: The patient is a 44-year-old female with a known history of severe ischemic ca rdiomyopathy, longstanding diabetes mellitus underwent stenting of her LAD last week by Dr. Piedra and presents with nausea and vomiting. She has a history of gastroparesis with prior history of nausea and vomiting that has been going on for quite a while on and off. She has some discomfort in the chest on her way to the hospital but appears to be worse with the nausea and vomiting. She has occasional dizziness. She has chronic dyspnea on exertion and peripheral edema. Echocardiogram showed an ejection fraction of 20 to 25% with mild mitral and moderate tricuspid regurgitation. Her cardiac catheterization revealed severe disease in the proximal LAD with diffuse moderate disease in the left circumflex and the RCA. She underwent Impella supported stenting of the LAD, receiving 2 stents. Chronic peripheral edema, no recent PND orthopnea. She has no history of stroke or seizure. The emergency room she was in sinus mechanism with no acute segment changes. Her troponin was mildly elevated and her NT proBNP was 8440. Medications: Aspirin, Entresto 2426 twice a day, metoprolol succinate 50 mg daily, Farxiga, Brilinta 90 mg twice a day, Eliquis 5 mg twice a day, Lipitor 40 mg daily, aspirin once a day, Bumex 1 mg daily, Ventolin Labs: Hemoglobin 11.8, BUN 22, creatinine 0.66, blood sugar 313, troponin 0.058, 0.056, 0.060. NT proBNP 8440 EKG: Sinus mechanism with nonspecific ST-T wave changes, left axis deviation rate of 112 02/25/2025 Patient seen and examined. She states that her nausea and vomiting are better. She states she has a little bit of chest pain it has been chronic but not bad. Her abdomen is a little bit tender. Her breathing is better. She states she has been up to the bathroom without incident. Blood pressure running between 127/78-160/94, heart rate 104, pulse ox 91-97% on room air. Repeat blood work reveals potassium 5.8, BUN 35, creatinine 0.74. Hemoglobin A1c 14.2 Physical Examination: 44-year-old female, alert oriented Head: Normocephalic. Eyes: Sclerae nonicteric. Neck: Good carotid upstroke, no bruit, no jugular venous distention. Lungs: Decreased breath sounds bilaterally Heart: Regular rate and rhythm, S1-S2, no S3, no rub. Systolic ejection murmur. Abdomen: Soft, minimal right abdominal discomfort, positive bowel sounds no organomegaly. Extremities: +1 edema, intact distal pulses. Ulceration noted Impression: 1. Nausea and vomiting related to gastroparesis, physical examination shows no significant abdominal discomfort 2. Status post recent stenting of the LAD, Impella supported 3. Mild troponin elevation secondary to the recent intervention, no evidence to suggest acute stent thrombosis 4. Severe cardiomyopathy with CHF and impaired systolic function 5. Uncontrolled diabetes mellitus with A1c 14.2 Plan: 1. GI workup regarding the gastroparesis 2. Continue home cardiac medications 3. Patient is cleared for discharge from a cardiology perspective and will follow-up with Dr. Silverio in 1 week. Nurse practitioner note has been reviewed, I agree with documented findings and plan of care. Patient was seen and examined. Objective - Vital Signs Vital signs: Vital Signs Temp 98.4 F 02/25/25 02:00 Pulse 104 H 02/25/25 02:00 Resp 17 02/25/25 02:00 BP 127/78 02/25/25 02:00 Pulse Ox 96 02/25/25 02:00 FiO2 Intake & Output 02/24/25 02/25/25 02/25/25 18:59 06:59 18:59 Weight 63.503 kg Other: # Voids 1 2 - Labs CBC & Chem 7: 02/24/25 06:23 02/25/25 05:10 Labs: Abnormal Lab Results - Last 24 Hours (Table) 02/24/25 02/24/25 02/25/25 Range/Units 17:33 20:41 05:10 Potassium 5.8 H (3.5-5.1) mmol/L BUN 35 H (7-17) mg/dL Glucose 267 H (74-99) mg/dL POC Glucose (mg/dL) 316 H 300 H (70-110) mg/dL Calcium 10.6 H (8.4-10.2) mg/dL 02/25/25 Range/Units 06:19 Potassium (3.5-5.1) mmol/L BUN (7-17) mg/dL Glucose (74-99) mg/dL POC Glucose (mg/dL) 244 H (70-110) mg/dL Calcium (8.4-10.2) mg/dL
[2025-02-25 14:34] VITALS: BMI 25.6
[2025-02-25 15:26] LABS: HCT 40.3 % (37.2-46.3); HGB 11.8 g/dL (12.0-15.0); MCH 24.1 pg (27.0-32.0); MCHC 29.3 g/dL (32.0-37.0); MCV 82.2 FL (80.0-97.0); Mean Platelet Volume 10.2 FL (9.5-12.2); NRBC Per 100 WBC 0 X 10*3/uL (0.00-0.01); Platelet Count 301 X 10*3/uL (140-440); RDW 20.5 % (11.5-14.5)
[2025-02-25] MEDS: ONDANSETRON 4 MG/2 ML VIAL IVP PRN (16:22)
[2025-02-25 17:35] LABS: Glucose,Whole Blood 188 mg/dL (70-110)
[2025-02-25 20:10] LABS: Glucose,Whole Blood 182 mg/dL (70-110)
--- NOTE | 2025-02-25 22:39 | P.PN ---
Subjective Progress Note Date: 02/25/25 44-year-old with extensive medical history, history of gastroparesis came in with complaints of nausea vomiting is being treated for gastroparesis here supplement supportive and symptomatic care. Patient has extensive cardiac history, severe ischemic cardiomyopathy with EF of around 20 to 25%. Patient al so had a recent cardiac catheterization found to have a severe disease in proximal LAD with diffuse moderate disease in left circumflex and RCA. Patient had stenting of LAD received 2 stents to the LAD. Patient's present troponin is mildly elevated secondary to his recent intervention cardiology evaluated the patient patient is euvolemic at this time patient was recently resumed on cardiac medications. Patient does have history of atrial fibrillation for which patient is on Eliquis. 02/25/2025 Patient evaluated today resting in bed. Still not tolerating much diet. On IV zofran and IV reglan. Potassium 5.8. REVIEW OF SYSTEMS: CONSTITUTIONAL: No fever, no malaise, no fatigue. HEENT: No recent visual problems or hearing problems. Denied any sore throat. CARDIOVASCULAR: No chest pain, orthopnea, PND, no palpitations, no syncope. PULMONARY: No shortness of breath, no cough, no hemoptysis. GASTROINTESTINAL: No diarrhea, no nausea, no vomiting, no abdominal pain. NEUROLOGICAL: No headaches, no weakness, no numbness. PHYSICAL EXAMINATION: GENERAL: The patient is alert and oriented x3, not in any acute distress. Well developed, well nourished. HEENT: Pupils are round and equally reacting to light. EOMI. No scleral icterus. No conjunctival pallor. Normocephalic, atraumatic. No pharyngeal erythema. No thyromegaly. CARDIOVASCULAR: S1 and S2 present. No murmurs, rubs, or gallops. PULMONARY: Chest is clear to auscultation, no wheezing or crackles. ABDOMEN: Soft, nontender, nondistended, normoactive bowel sounds. No palpable organomegaly. MUSCULOSKELETAL: No joint swelling or deformity. EXTREMITIES: No cyanosis, clubbing, or pedal edema. NEUROLOGICAL: Gross neurological examination did not reveal any focal deficits. SKIN: No rashes. Assessment and plan - Severe nausea and vomiting secondary to gastroparesis - Hyponatremia secondary to nausea vomiting mild hypovolemia; improved - Congestive heart failure chronic systolic dysfunction without any acute exacerbation - Severe coronary artery disease with recent LAD stent - Type 2 diabetes mellitus, uncontrolled with hemoglobin A1C 14.2. - Hypercalcemia likely dehydrational - Hyperkalemia - Seizure disorder - Asthma without any acute exacerbation - Patient is on anticoagulation with Eliquis I believe for probably atrial fibrillation paroxysmal presently sinus rhythm patient is resumed on this medication DVT prophylaxis: On Eliquis as mentioned above GI prophylaxis Full Code Plan Patient is still having nausea and dry heaves; continue IV antiemetics GI consultation Lokelma x 1 for the hyperkalemia and repeat potassium level this afternoon Hold Bumex and aldactone tomorrow Monitor electrolytes and renal function Follow up with cardiology on discharge The impression and plan of care has been dictated by Alis Sanchez, Nurse Practitioner as directed. Dr. Megan MD I have performed a history and physical examination and medical decision making of this patient, discussed the same with the dictator, and agree with the dictators assessment and plan as written, documented as a scribe. Based on total visit time, I have performed more than 50% of this visit. Objective - Vital Signs Vital signs: Vital Signs Temp 98.4 F 02/25/25 07:00 Pulse 103 H 02/25/25 07:00 Resp 12 02/25/25 07:00 BP 160/94 02/25/25 07:00 Pulse Ox 97 02/25/25 10:37 FiO2 Intake & Output 02/24/25 02/25/25 02/25/25 18:59 06:59 18:59 Weight 63.503 kg Other: # Voids 1 2 - Labs CBC & Chem 7: 02/25/25 10:53 02/25/25 14:34 Labs: Abnormal Lab Results - Last 24 Hours (Table) 02/24/25 02/24/25 02/25/25 Range/Units 17:33 20:41 05:10 Potassium (3.5-5.1) mmol/L BUN (7-17) mg/dL Glucose (74-99) mg/dL POC Glucose (mg/dL) 316 H 300 H (70-110) mg/dL Hemoglobin A1c 14.2 H (<=6.0) % Calcium (8.4-10.2) mg/dL 02/25/25 02/25/25 02/25/25 Range/Units 05:10 06:19 12:24 Potassium 5.8 H (3.5-5.1) mmol/L BUN 35 H (7-17) mg/dL Glucose 267 H (74-99) mg/dL POC Glucose (mg/dL) 244 H 207 H (70-110) mg/dL Hemoglobin A1c (<=6.0) % Calcium 10.6 H (8.4-10.2) mg/dL Assessment and Plan Time with Patient: Less than 30
[2025-02-26 05:53] LABS: Glucose,Whole Blood 120 mg/dL (70-110)
[2025-02-26 08:35] LABS: BUN/Creat Ratio 39.88 Ratio (12.00-20.00); Blood Urea Nitrogen 31.9 mg/dL (9.0-27.0); Calcium 9.8 mg/dL (8.7-10.3); Carbon Dioxide 26.2 mmol/L (21.6-31.8); Chloride 106 mmol/L (96-109); Glucose 133 mg/dL (70-110); Potassium 4.3 mmol/L (3.5-5.5); Sodium 144 mmol/L (135-145)
[2025-02-26] MEDS: PANTOPRAZOLE 40 MG/10 ML VIAL IV SCH (08:43)
--- NOTE | 2025-02-26 10:04 | P.PN ---
Subjective Progress Note Date: 02/26/25 History of Present Illness: The patient is a 44-year-old female with a known history of severe ischemic ca rdiomyopathy, longstanding diabetes mellitus underwent stenting of her LAD last week by Dr. Piedra and presents with nausea and vomiting. She has a history of gastroparesis with prior history of nausea and vomiting that has been going on for quite a while on and off. She has some discomfort in the chest on her way to the hospital but appears to be worse with the nausea and vomiting. She has occasional dizziness. She has chronic dyspnea on exertion and peripheral edema. Echocardiogram showed an ejection fraction of 20 to 25% with mild mitral and moderate tricuspid regurgitation. Her cardiac catheterization revealed severe disease in the proximal LAD with diffuse moderate disease in the left circumflex and the RCA. She underwent Impella supported stenting of the LAD, receiving 2 stents. Chronic peripheral edema, no recent PND orthopnea. She has no history of stroke or seizure. The emergency room she was in sinus mechanism with no acute segment changes. Her troponin was mildly elevated and her NT proBNP was 8440. Medications: Aspirin, Entresto 2426 twice a day, metoprolol succinate 50 mg daily, Farxiga, Brilinta 90 mg twice a day, Eliquis 5 mg twice a day, Lipitor 40 mg daily, aspirin once a day, Bumex 1 mg daily, Ventolin Labs: Hemoglobin 11.8, BUN 22, creatinine 0.66, blood sugar 313, troponin 0.058, 0.056, 0.060. NT proBNP 8440 EKG: Sinus mechanism with nonspecific ST-T wave changes, left axis deviation rate of 112 02/25/2025 Patient seen and examined. She states that her nausea and vomiting are better. She states she has a little bit of chest pain it has been chronic but not bad. Her abdomen is a little bit tender. Her breathing is better. She states she has been up to the bathroom without incident. Blood pressure running between 127/78-160/94, heart rate 104, pulse ox 91-97% on room air. Repeat blood work reveals potassium 5.8, BUN 35, creatinine 0.74. Hemoglobin A1c 14.2 02/26/2025 Patient seen and examined. Patient has had ongoing problems with nausea abdominal pain through the night. She denies any chest pain. She is taken a few sips of water. Patient has been seen by GI. Blood pressure 157/89, heart rate 98, pulse ox 96% on room air. Physical Examination: 44-year-old female, alert oriented Head: Normocephalic. Eyes: Sclerae nonicteric. Neck: Good carotid upstroke, no bruit, no jugular venous distention. Lungs: Decreased breath sounds bilaterally Heart: Regular rate and rhythm, S1-S2, no S3, no rub. Systolic ejection murmur. Abdomen: Soft, minimal right abdominal discomfort, positive bowel sounds no organomegaly. Extremities: +1 edema, intact distal pulses. Ulceration noted Impression: 1. Nausea and vomiting related to gastroparesis, physical examination shows no significant abdominal discomfort 2. Status post recent stenting of the LAD, Impella supported 3. Mild troponin elevation secondary to the recent intervention, no evidence to suggest acute stent thrombosis 4. Severe cardiomyopathy with CHF and impaired systolic function 5. Uncontrolled diabetes mellitus with A1c 14.2 Plan: 1. GI workup regarding the gastroparesis 2. Continue home cardiac medications 3. Patient is cleared for discharge from a cardiology perspective and will follow-up with Dr. Silverio in 1 week. 4. Cardiology will sign off this case and follow on an as-needed basis. Please reconsult for any new concerns. Nurse practitioner note has been reviewed, I agree with documented findings and plan of care. Patient was seen and examined. Objective - Vital Signs Vital signs: Vital Signs Temp 98.2 F 02/26/25 01:30 Pulse 98 02/26/25 01:30 Resp 18 02/26/25 01:30 BP 157/89 02/26/25 01:30 Pulse Ox 96 02/26/25 01:30 FiO2 Intake & Output 02/25/25 02/26/25 02/26/25 18:59 06:59 18:59 Weight 63.503 kg Other: Voiding Method Toilet # Voids 3 2 # Bowel Movements 0 - Labs CBC & Chem 7: 02/25/25 10:53 02/26/25 05:19 Labs: Abnormal Lab Results - Last 24 Hours (Table) 02/25/25 02/25/25 02/25/25 Range/Units 05:10 10:53 12:24 Hgb 11.8 L (12.0-15.0) g/dL MCH 24.1 L (27.0-32.0) pg MCHC 29.3 L (32.0-37.0) g/dL RDW 20.5 H (11.5-14.5) % POC Glucose (mg/dL) 207 H (70-110) mg/dL Hemoglobin A1c 14.2 H (<=6.0) % 02/25/25 02/25/25 02/26/25 Range/Units 17:23 20:08 05:52 Hgb (12.0-15.0) g/dL MCH (27.0-32.0) pg MCHC (32.0-37.0) g/dL RDW (11.5-14.5) % POC Glucose (mg/dL) 188 H 182 H 120 H (70-110) mg/dL Hemoglobin A1c (<=6.0) %
[2025-02-26] MEDS: ONDANSETRON 4 MG/2 ML VIAL IVP SCH (12:06)
[2025-02-26 12:24] LABS: Glucose,Whole Blood 93 mg/dL (70-110)
--- NOTE | 2025-02-26 13:04 | P.CONS ---
History of Present Illness - Reason for Consult Consult date: 02/26/25 Gastroparesis Requesting physician: Alis Sanchez - Chief Complaint Chest pain, nausea and vomiting - History of Present Illness This 44-year-old female with history of coronary artery disease with recent stenting of the LAD last week, uncontrolled diabetes mellitus, gastroparesis, heart failure, CVA/TIA, asthma, and seizure disorder who presented to the emergency department with complaints of chest pain, nausea and vomiting. Patient states that she has nausea and vomiting it is chronic has been ongoing for the last 2 to 3 days but was recurrent. She was diagnosed with diabetes mellitus in 2017. She had upper endoscopy 2 months ago at [facility] and last documented EGD done here was 04/09/[address] Acosta for nausea and vomiting with findings of mild antral gastritis. Patient was hyperglycemic on admission. She states her sugars are not well-controlled. She denies any weight loss. Denies any abdominal pain. Review of Systems REVIEW OF SYSTEMS: CARDIOPULMONARY: No chest pain or shortness of breath. Gastrointestinal: No abdominal pain. Nausea and vomiting. No hematemesis, coffee-ground emesis. No rectal bleeding, or melena. GENITOURINARY: No dysuria or hematuria. MUSCULOSKELETAL: Reports normal range of motion., Joint pain. SKIN: No rashes. No jaundice. ENDOCRINE: No chills, fevers. No excessive weight gain or loss. No polydipsia or polyuria. PSYCHIATRIC: Unremarkable. NEUROLOGY: No change in mental status. Denies dizziness, headache. ENT: Vision unremarkable. CONSTITUTIONAL: No recent weight loss. No fever, chills, night sweats. Past Medical History Past Medical History: Asthma, Heart Failure, CVA/TIA, Diabetes Mellitus, GI Bleed, Pneumonia, Seizure Disorder Additional Past Medical History / Comment(s): bilateral pleural effusion, 09/2024 bilateral hip and ankle bursitis, 3 discs in lower back deteroitrating and 2 bulging. History of Any Multi-Drug Resistant Organisms: None Reported, MRSA Year Discovered:: 2011 MDRO Source:: Lungs Past Surgical History: Section, Cholecystectomy, Tubal Ligation Additional Past Surgical History / Comment(s): Colonoscopies, right groin mole remove, kidney stones surgically removed, bilateral cataracts removed, glaucoma surgery, bilateral retinal surgery for bleeding, bilateral thoracentesis Heart Cath with 2 stents Past Anesthesia/Blood Transfusion Reactions: No Reported Reaction Past Psychological History: Anxiety Additional Psychological History / Comment(s): Pt resides with her 2 children. Pt is independent. She drives. Smoking Status: Former smoker Past Alcohol Use History: None Reported Additional Past Alcohol Use History / Comment(s): Patient is a lifelong nonsmoker. She denies any marijuana or street drug use. Past Drug Use History: None Reported - Past Family History Father Family Medical History: Cancer, Diabetes Mellitus Additional Family Medical History / Comment(s): COLON CANCER, MELANOMA ON HIS CHEST AND HE ALSO HAS BENIGN BRAIN TUMORS X2, pancreatic cancer. Mother Family Medical History: Cancer, Diabetes Mellitus, Dialysis, Myocardial Infarction (MT) Additional Family Medical History / Comment(s): MELANOMA THAT METASTASIZED TO THE BRAIN- AT AGE 49. Mother had an MT at age 34 with angioplasty at age 36 yrs and another MT, and history of diabetes. Patient has many aunts, uncles and nieces with diabetes on her mother's side. Brother(s) Family Medical History: Cancer Additional Family Medical History / Comment(s): Patient has one half-brother with kidney stones, full brother with no major medical problems. Patient has 1 sister with no major medical problems. Daughter(s) Family Medical History: Seizure Disorder Additional Family Medical History / Comment(s): Patient has 2 daughters and her youngest daughter has history of seizure disorder. Patient has one son with no major medical problems. Medications and Allergies Home Medications Medication Instructions Recorded Confirmed Type HYDROcodone/APAP 10-325MG [[place] 1 tab PO TID PRN 01/14/18 02/24/25 History 10-325] levETIRAcetam [Keppra] 500 mg PO DAILY 08/29/23 02/24/25 History Ondansetron Odt [Zofran ODT] 4 mg PO TID PRN 04/06/24 02/24/25 History Albuterol Nebulized [Ventolin 2.5 mg INHALATION RT-QID PRN 11/04/24 02/24/25 History Nebulized] Apixaban [Eliquis] 5 mg PO BID 11/04/24 02/24/25 History Budesonide/Formoterol Fumarate 2 puff INHALATION RT-DAILY 11/04/24 02/24/25 History [Symbicort 160-4.5 Mcg Inhaler] Pantoprazole [Protonix] 40 mg PO DAILY 12/21/24 02/24/25 History Naproxen [Naprosyn] 500 mg PO BID PRN 12/31/24 02/24/25 History Aspirin 81 mg PO DAILY #30 tab 01/29/25 02/24/25 Rx Atorvastatin [Lipitor] 40 mg PO DAILY #30 tab 01/29/25 02/24/25 Rx Bumetanide [BUMEX] 1 mg PO DAILY #30 tab 01/29/25 02/24/25 Rx Insulin Glargine (Lantus) [Lantus 20 unit SQ DAILY@0700 02/17/25 02/24/25 History Vial] Clopidogrel [Plavix] 75 mg PO DAILY 90 Days #90 tablet 02/20/25 02/24/25 Rx Dapagliflozin Propanediol [Farxiga] 10 mg PO DAILY 90 Days #90 tab 02/20/25 02/24/25 Rx Metoprolol Succinate (ER) [Toprol 50 mg PO DAILY 90 Days #90 tab 02/20/25 02/24/25 Rx XL] Spironolactone [Aldactone] 25 mg PO DAILY #30 tab 02/20/25 02/24/25 Rx Ticagrelor [Brilinta] 90 mg PO BID 30 Days #30 tab 02/20/25 02/24/25 Rx Sacubitril/Valsartan [Entresto 24 1 tab PO BID 02/24/25 02/24/25 History mg-26 mg Tablet] Allergies Allergy/AdvReac Type Severity Reaction Status Date / Time Penicillins Allergy Nausea & Verified 02/18/25 06:58 Vomiting, rash codeine AdvReac Nausea & Verified 02/18/25 06:58 Vomiting morphine AdvReac Nausea & Verified 02/18/25 06:58 Vomiting Sulfa (Sulfonamide AdvReac Nausea & Verified 02/18/25 06:58 Antibiotics) Vomiting, rash tramadol AdvReac Per Verified 02/18/25 06:58 patient, cannot take with Keppra Physical Exam Vitals: Vital Signs Temp Pulse Pulse Resp BP BP Pulse Ox 02/26/25 01:30 98.2 F 98 18 157/89 96 02/25/25 17:43 97.7 F 95 14 155/90 97 02/25/25 14:25 98.1 F 98 14 144/89 96 02/25/25 10:37 97 02/25/25 07:00 98.4 F 103 H 104 H 12 160/94 91 L Intake and Output 02/25/25 02/25/25 02/26/25 14:59 22:59 06:59 Other: Voiding Method Toilet # Voids 3 2 2 # Bowel Movements 0 Weight 63.503 kg General appearance: The patient is alert, oriented, appears in no acute distress. HET: Head is normocephalic and atraumatic. Conjunctiva pink. Sclera anicteric. Neck: Supple without lymphadenopathy. Trachea midline. Heart: Regular. Lungs: Equal expansion, normal respiratory effort. Abdomen: Soft, nontender, nondistended. Skin: No rashes. No jaundice. Extremities: Normal skin color and turgor. No pedal edema. Neurological: No focal deficits. Alert and oriented x3. Results CBC & Chem 7: 02/25/25 10:53 02/26/25 05:19 Labs: Abnormal Lab Results - Last 24 Hours (Table) 02/25/25 02/25/25 02/25/25 Range/Units 05:10 05:10 06:19 Hgb (12.0-15.0) g/dL MCH (27.0-32.0) pg MCHC (32.0-37.0) g/dL RDW (11.5-14.5) % Potassium 5.8 H (3.5-5.1) mmol/L BUN 35 H (7-17) mg/dL Glucose 267 H (74-99) mg/dL POC Glucose (mg/dL) 244 H (70-110) mg/dL Hemoglobin A1c 14.2 H (<=6.0) % Calcium 10.6 H (8.4-10.2) mg/dL 02/25/25 02/25/25 02/25/25 Range/Units 10:53 12:24 17:23 Hgb 11.8 L (12.0-15.0) g/dL MCH 24.1 L (27.0-32.0) pg MCHC 29.3 L (32.0-37.0) g/dL RDW 20.5 H (11.5-14.5) % Potassium (3.5-5.1) mmol/L BUN (7-17) mg/dL Glucose (74-99) mg/dL POC Glucose (mg/dL) 207 H 188 H (70-110) mg/dL Hemoglobin A1c (<=6.0) % Calcium (8.4-10.2) mg/dL 02/25/25 02/26/25 Range/Units 20:08 05:52 Hgb (12.0-15.0) g/dL MCH (27.0-32.0) pg MCHC (32.0-37.0) g/dL RDW (11.5-14.5) % Potassium (3.5-5.1) mmol/L BUN (7-17) mg/dL Glucose (74-99) mg/dL POC Glucose (mg/dL) 182 H 120 H (70-110) mg/dL Hemoglobin A1c (<=6.0) % Calcium (8.4-10.2) mg/dL Assessment and Plan (1) Nausea & vomiting Narrative/Plan: 44-year-old female longstanding history of diabetes since 2017 with chronic nausea and vomiting possibly secondary to gastroparesis and uncontrolled blood sugars. Patient recently had upper endoscopy about 2 months ago. No need to repeat endoscopic evaluation at this time. You can obtain records from [facility]. Medical management with antiemetics, Protonix will be increased to twice daily. Recommend small frequent meals. And strict glycemic control. Current Visit: No Status: Acute Code(s): R11.2 - NAUSEA WITH VOMITING, UNSPECIFIED SNOMED Code(s): 86898754 (2) Diabetes mellitus Current Visit: Yes Status: Acute Code(s): E11.9 - TYPE 2 DIABETES MELLITUS WITHOUT COMPLICATIONS SNOMED Code(s): 29793136 (3) CAD (coronary artery disease) Current Visit: Yes Status: Acute Code(s): I25.10 - ATHSCL HEART DISEASE OF [place] CORONARY ARTERY W/O ANG PCTRS SNOMED Code(s): 98037616 (4) Chest pain Current Visit: Yes Status: Acute Code(s): R07.9 - CHEST PAIN, UNSPECIFIED SNOMED Code(s): 05649837 (5) Hyperglycemia Current Visit: No Status: Acute Code(s): R73.9 - HYPERGLYCEMIA, UNSPECIFIED SNOMED Code(s): 63781549 Plan: 1. Continue symptomatic and supportive care 2. Zofran will be ordered [id number], continue Phenergan can increase it to 10 mg if no improvement 3. Increase Protonix to twice daily 4. Recommend strict glycemic control 5. No plans on endoscopic evaluation 6. Discussed with patient to eat small frequent meals. Thank you for this consultation, no further workup at this time. We will sign off at this time. Dr. Tracy Burns I agree with the dictator's note, documented as a scribe by Pat Cavazos.
[2025-02-26 17:49] LABS: Glucose,Whole Blood 57 mg/dL (70-110)
[2025-02-26 18:20] LABS: Glucose,Whole Blood 85 mg/dL (70-110)
--- NOTE | 2025-02-26 18:56 | P.PN ---
Subjective Progress Note Date: 02/26/25 44-year-old with extensive medical history, history of gastroparesis came in with complaints of nausea vomiting is being treated for gastroparesis here supplement supportive and symptomatic care. Patient has extensive cardiac history, severe ischemic cardiomyopathy with EF of around 20 to 25%. Patient al so had a recent cardiac catheterization found to have a severe disease in proximal LAD with diffuse moderate disease in left circumflex and RCA. Patient had stenting of LAD received 2 stents to the LAD. Patient's present troponin is mildly elevated secondary to his recent intervention cardiology evaluated the patient patient is euvolemic at this time patient was recently resumed on cardiac medications. Patient does have history of atrial fibrillation for which patient is on Eliquis. 02/25/2025 Patient evaluated today resting in bed. Still not tolerating much diet. On IV zofran and IV reglan. Potassium 5.8. 02/26/2025 Patient sitting up at the edge of the bed. States her abdominal pain is an 8/10 and has been dry heaving. On reglan and zofran scheduled. General surgery to evaluate the patient. Patient is on a combination of norco 10 PRN and IV dilaudid PRN. REVIEW OF SYSTEMS: CONSTITUTIONAL: No fever, no malaise, no fatigue. HEENT: No recent visual problems or hearing problems. Denied any sore throat. CARDIOVASCULAR: No chest pain, orthopnea, PND, no palpitations, no syncope. PULMONARY: No shortness of breath, no cough, no hemoptysis. GASTROINTESTINAL: No diarrhea, no nausea, no vomiting, no abdominal pain. NEUROLOGICAL: No headaches, no weakness, no numbness. PHYSICAL EXAMINATION: GENERAL: The patient is alert and oriented x3, not in any acute distress. Well developed, well nourished. HEENT: Pupils are round and equally reacting to light. EOMI. No scleral icterus. No conjunctival pallor. Normocephalic, atraumatic. No pharyngeal erythema. No thyromegaly. CARDIOVASCULAR: S1 and S2 present. No murmurs, rubs, or gallops. PULMONARY: Chest is clear to auscultation, no wheezing or crackles. ABDOMEN: Soft, nontender, nondistended, normoactive bowel sounds. No palpable organomegaly. MUSCULOSKELETAL: No joint swelling or deformity. EXTREMITIES: No cyanosis, clubbing, or pedal edema. NEUROLOGICAL: Gross neurological examination did not reveal any focal deficits. SKIN: No rashes. Assessment and plan - Severe nausea and vomiting secondary to gastroparesis - Hyponatremia secondary to nausea vomiting mild hypovolemia; improved - Congestive heart failure chronic systolic dysfunction without any acute exacerbation - Severe coronary artery disease with recent LAD stent - Type 2 diabetes mellitus, uncontrolled with hemoglobin A1C 14.2. - Hypercalcemia likely dehydrational - Hyperkalemia - Seizure disorder - Asthma without any acute exacerbation - Patient is on anticoagulation with Eliquis I believe for probably atrial fibrillation paroxysmal presently sinus rhythm patient is resumed on this medication DVT prophylaxis: On Eliquis as mentioned above GI prophylaxis Full Code Plan Patient is still having nausea and dry heaves; continue IV antiemetics GI consultation General surgery consultation Hold Bumex and aldactone Continue GEORGE wrap to lower extremities bilaterally Monitor electrolytes and renal function Follow up with cardiology on discharge The impression and plan of care has been dictated by Alis Sanchez, Nurse Practitioner as directed. Dr. Megan MD I have performed a history and physical examination and medical decision making of this patient, discussed the same with the dictator, and agree with the dictators assessment and plan as written, documented as a scribe. Based on total visit time, I have performed more than 50% of this visit. Objective - Vital Signs Vital signs: Vital Signs Temp 97.5 F L 02/26/25 15:00 Pulse 90 02/26/25 15:00 Resp 14 02/26/25 15:00 BP 158/96 02/26/25 15:00 Pulse Ox 98 02/26/25 15:00 FiO2 Intake & Output 02/25/25 02/26/25 02/26/25 18:59 06:59 18:59 Intake Total 100 Balance 100 Weight 63.503 kg Intake: Oral 100 Other: Voiding Method Toilet # Voids 3 2 6 # Bowel Movements 0 2 - Labs CBC & Chem 7: 02/25/25 10:53 02/26/25 05:19 Labs: Abnormal Lab Results - Last 24 Hours (Table) 02/25/25 02/26/25 02/26/25 Range/Units 20:08 05:19 05:52 BUN 31.9 H (9.0-27.0) mg/dL BUN/Creatinine Ratio 39.88 H (12.00-20.00) Ratio Glucose 133 H (70-110) mg/dL POC Glucose (mg/dL) 182 H 120 H (70-110) mg/dL 02/26/25 Range/Units 17:48 BUN (9.0-27.0) mg/dL BUN/Creatinine Ratio (12.00-20.00) Ratio Glucose (70-110) mg/dL POC Glucose (mg/dL) 57 L (70-110) mg/dL Assessment and Plan Time with Patient: Less than 30
[2025-02-26 20:30] LABS: Glucose,Whole Blood 79 mg/dL (70-110)
[2025-02-27 03:44] VITALS: TEMP 97.8
[2025-02-27 06:19] LABS: Glucose,Whole Blood 69 mg/dL (70-110)
[2025-02-27 07:42] LABS: Glucose,Whole Blood 104 mg/dL (70-110)
[2025-02-27 08:15] VITALS: BP 138/88; RESP 14
[2025-02-27] MEDS: HYDROcodone/APAP 10-325MG 1 EACH TAB PO PRN (08:49)
[2025-02-27] MEDS: ALBUTEROL NEBULIZED 2.5 MG/3 ML INHALATION PRN (09:01)
[2025-02-27 09:11] VITALS: PULSE 90
[2025-02-27 09:43] LABS: BUN/Creat Ratio 32.44 Ratio (12.00-20.00); Blood Urea Nitrogen 29.2 mg/dL (9.0-27.0); Calcium 9.8 mg/dL (8.7-10.3); Carbon Dioxide 27.5 mmol/L (21.6-31.8); Chloride 103 mmol/L (96-109); Glucose 79 mg/dL (70-110); Potassium 4.5 mmol/L (3.5-5.5); Sodium 143 mmol/L (135-145)
--- NOTE | 2025-03-01 21:18 | P.DS ---
Providers Date of admission: 02/23/25 21:36 Attending physician: Paul Kumar Consults: 02/23/25 21:34 Consult Physician Routine Consulting Provider: Ciara Silverio Consult Reason/Comments: cp Do you want consulting provider notified?: Yes 02/25/25 15:46 Consult Physician Routine Consulting Provider: Omayra Burns Consult Reason/Comments: gastroparesis Do you want consulting provider notified?: Already Contacted 02/27/25 09:57 Consult Physician Routine Consulting Provider: Walter Acosta Consult Reason/Comments: abdominal pain Do you want consulting provider notified?: Yes Primary care physician: [facility] Course: Final Diagnosis - Severe nausea and vomiting secondary to gastroparesis - Hyponatremia secondary to nausea vomiting mild hypovolemia; improved - Congestive heart failure chronic systolic dysfunction without any acute exacerbation - Severe coronary artery disease with recent LAD stent - Type 2 diabetes mellitus, uncontrolled with hemoglobin A1C 14.2. - Hypercalcemia likely dehydrational - Hyperkalemia - Seizure disorder - Asthma without any acute exacerbation - Patient is on anticoagulation with Eliquis I believe for probably atrial fibrillation paroxysmal presently sinus rhythm Discharge Disposition Patient stable for discharge home. Continue symptomatic care for the gastroparesis discharged with oral reglan and oral zofran. Recommended patient to follow up with Dr Tracy Burns on dishcarge. Patient to follow up with assistant office manager Dr Silverio in 1 week. Plavix was discontinued on discharge and patient to continue on oral eliquis twice daily and aspirin 81 mg daily. Repeat labs 2 to 3 days. Total time taken in discharge planning greater than 35 minutes. Hospital Course This is a 44-year-old with extensive medical history, history of gastroparesis came in with complaints of nausea vomiting is being treated for gastroparesis here supplement supportive and symptomatic care. Patient has extensive cardiac history, severe ischemic cardiomyopathy with EF of around 20 to 25%. Patient also had a recent cardiac catheterization found to have a severe disease in proximal LAD with diffuse moderate disease in left circumflex and RCA. Patient had stenting of LAD received 2 stents to the LAD. Patient's present troponin is mildly elevated secondary to his recent intervention cardiology evaluated the patient patient is euvolemic at this time patient was recently resumed on cardiac medications. Patient does have history of atrial fibrillation for which patient is on Eliquis. Patient was admitted for the gastroparesis and treated with IV zosyn and IV reglan. Patient was evaluated by GI and general surgery who have both cleared patient for discharge with symptomatic and supportive care. Hemoglobin A1C was significantly elevated at 14.2 and discussed the importance of glycemic control with diet and medications which in turn will help the gastroparesis. Patient verbalizes understanding. Patient was also evaluated by cardiology; as she had troponin elevation and elevated proBNP at 8440 on admission. Patient was instructed to continue her same cardiac medications and follow up with her known assistant office manager Dr Silverio in one week. Patient had some improvement in her abdominal symptoms mostly mild at this time. She has been moving her bowels. She is not having any shortness of breath or chest pain. Her lungs are clear, s1 s2 auscultated abdomen soft and nontender. Focal neurological exam is negative. She will be discharged home. Please see medication reconciliation for a list of current medications. Thank you for allowing us to participate in the care of this patient. The impression and plan of care has been dictated by Alis Sanchez, Nurse Practitioner as directed. Dr. Megan MD I have performed a history and physical examination and medical decision making of this patient, discussed the same with the dictator, and agree with the dictators assessment and plan as written, documented as a scribe. Based on total visit time, I have performed more than 50% of this visit. Patient Condition at Discharge: Fair Plan - Discharge Summary Discharge Rx Participant: No New Discharge Prescriptions: New Metoclopramide HCl [Reglan] 5 mg PO TID PRN #20 tab PRN Reason: Nausea Continue HYDROcodone/APAP 10-325MG [[place] 10-325] 1 tab PO TID PRN PRN Reason: Pain levETIRAcetam [Keppra] 500 mg PO DAILY Albuterol Nebulized [Ventolin Nebulized] 2.5 mg INHALATION RT-QID PRN PRN Reason: Shortness Of Breath Apixaban [Eliquis] 5 mg PO BID Naproxen [Naprosyn] 500 mg PO BID PRN PRN Reason: Pain Metoprolol Succinate (ER) [Toprol XL] 50 mg PO DAILY 90 Days #90 tab Spironolactone [Aldactone] 25 mg PO DAILY #30 tab Sacubitril/Valsartan [Entresto 24 mg-26 mg Tablet] 1 tab PO BID Ondansetron Odt [Zofran ODT] 4 mg PO TID PRN #20 tab PRN Reason: Nausea Budesonide/Formoterol Fumarate [Symbicort 160-4.5 Mcg Inhaler] 2 puff INHALATION RT-DAILY Pantoprazole [Protonix] 40 mg PO DAILY Aspirin 81 mg PO DAILY #30 tab Dapagliflozin Propanediol [Farxiga] 10 mg PO DAILY 90 Days #90 tab Discontinued Clopidogrel [Plavix] 75 mg PO DAILY 90 Days #90 tablet No Action Clopidogrel [Plavix] 75 mg PO DAILY Atorvastatin [Lipitor] 40 mg PO DIRECTED Insulin Glargine,Hum.rec.anlog [Lantus Solostar Pen] 20 units SQ DAILY Bumetanide [BUMEX] 1 mg PO DIRECTED Discharge Medication List HYDROcodone/APAP 10-325MG [[place] 10-325] 1 tab PO TID PRN 01/14/18 [History] levETIRAcetam [Keppra] 500 mg PO DAILY 08/29/23 [History] Albuterol Nebulized [Ventolin Nebulized] 2.5 mg INHALATION RT-QID PRN 11/04/24 [History] Apixaban [Eliquis] 5 mg PO BID 11/04/24 [History] Budesonide/Formoterol Fumarate [Symbicort 160-4.5 Mcg Inhaler] 2 puff INHALATION RT-DAILY 11/04/24 [History] Pantoprazole [Protonix] 40 mg PO DAILY 12/21/24 [History] Naproxen [Naprosyn] 500 mg PO BID PRN 12/31/24 [History] Aspirin 81 mg PO DAILY #30 tab 01/29/25 [Rx] Dapagliflozin Propanediol [Farxiga] 10 mg PO DAILY 90 Days #90 tab 02/20/25 [Rx] Metoprolol Succinate (ER) [Toprol XL] 50 mg PO DAILY 90 Days #90 tab 02/20/25 [Rx] Spironolactone [Aldactone] 25 mg PO DAILY #30 tab 02/20/25 [Rx] Sacubitril/Valsartan [Entresto 24 mg-26 mg Tablet] 1 tab PO BID 02/24/25 [History] Metoclopramide HCl [Reglan] 5 mg PO TID PRN #20 tab 06/14/25 [Rx] Ondansetron Odt [Zofran ODT] 4 mg PO TID PRN #20 tab 02/27/25 [Rx] Atorvastatin [Lipitor] 40 mg PO DIRECTED 03/01/25 [History] Bumetanide [BUMEX] 1 mg PO DIRECTED 03/01/25 [History] Clopidogrel [Plavix] 75 mg PO DAILY 03/01/25 [History] Insulin Glargine,Hum.rec.anlog [Lantus Solostar Pen] 20 units SQ DAILY 03/01/25 [History] Follow up Appointment(s)/Referral(s): Clayton Silverio MD [Medical Doctor] - 1 Week Bee Olguin III, MD [Primary Care Provider] - 1-2 days Ambulatory/Diagnostic Orders: Basic Metabolic Panel [LAB.AMB] Time Frame: 3 Days, Location: None Selected Patient Instructions/Handouts: Diabetic Gastroparesis (GEN), Acute Nausea and Vomiting (DC), Gastroparesis (DC) Activity/Diet/Wound Care/Special Instructions: Continue zofran and reglan PRN Follow up with Dr Tracy Burns in the office in 1 to 2 weeks Diet as tolerated Discharge Disposition: HOME SELF-CARE
== END 2025-02-27 11:55 | disposition home or self-care (01) | DRG 48 ==
LOC: EC 19:29 → 6NMEDSUR 21:36 → OBSVTOIN 21:36 → 6NMEDSUR 22:32
PROVIDERS: ADMIT Hospitalist; ATTEND Hospitalist
DX: E11.43 Type 2 diabetes mellitus with diabetic autonomic (poly)neuropathy (principal); K31.84 Gastroparesis; J45.909 Unspecified asthma, uncomplicated; I50.22 Chronic systolic (congestive) heart failure; I48.0 Paroxysmal atrial fibrillation; I25.5 Ischemic cardiomyopathy; E11.65 Type 2 diabetes mellitus with hyperglycemia; E83.52 Hypercalcemia; E86.0 Dehydration; E86.1 Hypovolemia; E87.1 Hypo-osmolality and hyponatremia; E87.5 Hyperkalemia; F41.9 Anxiety disorder, unspecified; G40.909 Epilepsy, unspecified, not intractable, without status epilepticus; H40.9 Unspecified glaucoma; I08.1 Rheumatic disorders of both mitral and tricuspid valves; I25.10 Atherosclerotic heart disease of native coronary artery without angina pectoris; Z79.01 Long term (current) use of anticoagulants; Z79.02 Long term (current) use of antithrombotics/antiplatelets; Z79.4 Long term (current) use of insulin; Z79.51 Long term (current) use of inhaled steroids; Z79.82 Long term (current) use of aspirin; Z79.84 Long term (current) use of oral hypoglycemic drugs; Z79.899 Other long term (current) drug therapy; Z87.442 Personal history of urinary calculi; Z87.891 Personal history of nicotine dependence; Z95.5 Presence of coronary angioplasty implant and graft; Z86.14 Personal history of Methicillin resistant Staphylococcus aureus infection; Z87.01 Personal history of pneumonia (recurrent); Z88.6 Allergy status to analgesic agent; Z88.5 Allergy status to narcotic agent; Z88.0 Allergy status to penicillin; Z88.2 Allergy status to sulfonamides
CPT/HCPCS: 36415; 71046; 80048; 80053; 83036; 83690; 83735; 83880; 84100; 84132; 84484; 85025; 85027; 85610; 85730; 93005; 94640; 94760; 96361; 96374; 96375; 96376; 99291

== ENCOUNTER 2025-03-01 16:13 | Inpatient (IN) | payer OTHER ==
--- NOTE | 2025-03-01 16:48 | ED ---
General Adult HPI - General Chief complaint: Nausea/Vomiting/Diarrhea Stated complaint: abd pain, headache Time Seen by Provider: 03/01/25 16:28 Source: patient, RN notes reviewed Mode of arrival: ambulatory Limitations: no limitations - History of Present Illness Initial comments: Patient is a 44-year-old female present to the emergency department with concerns with nausea and vomiting. Onset of symptoms was last night. Patient has vomited several times. Patient did have some diarrhea however that has resolved. Patient does have some abdominal discomfort however has chronic abdominal pain. Patient has had several CT scans of her abdomen because of this. Patient did have stents placed this past week. Patient also complains of mild headache. - Related Data Home Medications Medication Instructions Recorded Confirmed HYDROcodone/APAP 10-325MG [[place] 1 tab PO TID PRN 01/14/18 02/24/25 10-325] levETIRAcetam [Keppra] 500 mg PO DAILY 08/29/23 02/24/25 Albuterol Nebulized [Ventolin 2.5 mg INHALATION RT-QID PRN 11/04/24 02/24/25 Nebulized] Apixaban [Eliquis] 5 mg PO BID 11/04/24 02/24/25 Budesonide/Formoterol Fumarate 2 puff INHALATION RT-DAILY 11/04/24 02/24/25 [Symbicort 160-4.5 Mcg Inhaler] Pantoprazole [Protonix] 40 mg PO DAILY 12/21/24 02/24/25 Naproxen [Naprosyn] 500 mg PO BID PRN 12/31/24 02/24/25 Insulin Glargine (Lantus) [Lantus 20 unit SQ DAILY@0700 02/17/25 02/24/25 Vial] Sacubitril/Valsartan [Entresto 24 1 tab PO BID 02/24/25 02/24/25 mg-26 mg Tablet] Previous Rx's Medication Instructions Recorded Aspirin 81 mg PO DAILY #30 tab 01/29/25 Atorvastatin [Lipitor] 40 mg PO DAILY #30 tab 01/29/25 Bumetanide [BUMEX] 1 mg PO DAILY #30 tab 01/29/25 Dapagliflozin Propanediol [Farxiga] 10 mg PO DAILY 90 Days #90 tab 02/20/25 Metoprolol Succinate (ER) [Toprol 50 mg PO DAILY 90 Days #90 tab 02/20/25 XL] Spironolactone [Aldactone] 25 mg PO DAILY #30 tab 02/20/25 Ticagrelor [Brilinta] 90 mg PO BID 30 Days #30 tab 02/20/25 Metoclopramide HCl [Reglan] 5 mg PO TID PRN #20 tab 02/27/25 Ondansetron Odt [Zofran ODT] 4 mg PO TID PRN #20 tab 02/27/25 Allergies Allergy/AdvReac Type Severity Reaction Status Date / Time Penicillins Allergy Nausea & Verified 02/18/25 06:58 Vomiting, rash codeine AdvReac Nausea & Verified 02/18/25 06:58 Vomiting morphine AdvReac Nausea & Verified 02/18/25 06:58 Vomiting Sulfa (Sulfonamide AdvReac Nausea & Verified 02/18/25 06:58 Antibiotics) Vomiting, rash tramadol AdvReac Per Verified 02/18/25 06:58 patient, cannot take with Keppra Review of Systems ROS Statement: Those systems with pertinent positive or pertinent negative responses have been documented in the HPI. ROS Other: All systems not noted in ROS Statement are negative. Constitutional: Denies: fever Eyes: Denies: eye pain ENT: Denies: ear pain Respiratory: Denies: dyspnea Endocrine: Reports: fatigue Gastrointestinal: Reports: abdominal pain, nausea, vomiting, diarrhea Neurological: Reports: as per HPI, headache. Denies: weakness Past Medical History Past Medical History: Asthma, Heart Failure, CVA/TIA, Diabetes Mellitus, GI Bleed, Pneumonia, Seizure Disorder Additional Past Medical History / Comment(s): bilateral pleural effusion, 09/2024 bilateral hip and ankle bursitis, 3 discs in lower back deteroitrating and 2 bulging. History of Any Multi-Drug Resistant Organisms: None Reported, MRSA Date of last positivie culture/infection: 2011 MDRO Source:: Lungs Past Surgical History: Section, Cholecystectomy, Tubal Ligation Additional Past Surgical History / Comment(s): Colonoscopies, right groin mole remove, kidney stones surgically removed, bilateral cataracts removed, glaucoma surgery, bilateral retinal surgery for bleeding, bilateral thoracentesis Heart Cath with 2 stents Past Anesthesia/Blood Transfusion Reactions: No Reported Reaction Past Psychological History: Anxiety Smoking Status: Former smoker Past Alcohol Use History: None Reported Past Drug Use History: None Reported - Past Family History Father Family Medical History: Cancer, Diabetes Mellitus Additional Family Medical History / Comment(s): COLON CANCER, MELANOMA ON HIS CHEST AND HE ALSO HAS BENIGN BRAIN TUMORS X2, pancreatic cancer. Mother Family Medical History: Cancer, Diabetes Mellitus, Dialysis, Myocardial Infarction ([place]) Additional Family Medical History / Comment(s): MELANOMA THAT METASTASIZED TO THE BRAIN- AT AGE 49. Mother had an [place] at age 34 with angioplasty at age 36 yrs and another [place], and history of diabetes. Patient has many aunts, uncles and nieces with diabetes on her mother's side. Brother(s) Family Medical History: Cancer Additional Family Medical History / Comment(s): Patient has one half-brother with kidney stones, full brother with no major medical problems. Patient has 1 sister with no major medical problems. Daughter(s) Family Medical History: Seizure Disorder Additional Family Medical History / Comment(s): Patient has 2 daughters and her youngest daughter has history of seizure disorder. Patient has one son with no major medical problems. General Exam Limitations: no limitations General appearance: alert, in no apparent distress Head exam: Present: normocephalic Eye exam: Present: normal appearance Neck exam: Present: normal inspection Respiratory exam: Present: normal lung sounds bilaterally Cardiovascular Exam: Present: regular rate, normal rhythm GI/Abdominal exam: Present: soft, tenderness (Mild tenderness epigastric and right lower quadrant). Absent: distended Extremities exam: Present: normal inspection Neurological exam: Present: alert Psychiatric exam: Present: normal affect, normal mood Skin exam: Present: normal color Course Vital Signs 03/01/25 16:16 Temperature 98.1 F Pulse Rate 99 Respiratory 15 Rate Blood Pressure 171/106 O2 Sat by Pulse 95 Oximetry EKG Findings - EKG Results: EKG: interpreted by ERMD (Left axis. Poor R wave progression.), sinus rhythm, normal ST/T Medical Decision Making - Medical Decision Making Was pt. sent in by a medical professional or institution (, PA, AUTOBODY TECHNICIAN, urgent care, hospital, or [facility]...) When possible be specific @ -No Did you speak to anyone other than the patient for history (EMS, parent, family, police, friend...)? What history was obtained from this source @ -No Did you review nursing and triage notes (agree or disagree)? Why? @ -I reviewed and agree with nursing and triage notes Were old charts reviewed (outside hosp., previous admission, EMS record, old EKG, old radiological studies, urgent care reports/EKG's, [facility] records)? Report findings @ -No old charts were reviewed Differential Diagnosis (chest pain, altered mental status, abdominal pain women, abdominal pain men, vaginal bleeding, weakness, fever, dyspnea, syncope, headache, dizziness, GI bleed, back pain, seizure, CVA, palpatations, mental health, musculoskeletal)? @ -Differential Abdominal Pain Women: Appendicitis, Cholecystitis, diverticulosis, ischemic bowel, pancreatitis, hepatitis, UTI, gastroenteritis, AAA, incarcerated hernia, bowel obstruction, constipation, inflammatory bowel, hepatitis, peptic ulcer disease, splenic infarction, perforated viscus, vulvitis, ovarian torsion, PID, kidney stone, placenta abruption, this is not meant to be an all-inclusive list EKG interpreted by me (3pts min.). @ -As above X-rays interpreted by me (1pt min.). @ -Abdominal x-ray without acute abnormality CT interpreted by me (1pt min.). @ -None done U/S interpreted by me (1pt. min.). @ -None done What testing was considered but not performed or refused? (CT, X-rays, U/S, labs)? Why? @ -None What meds were considered but not given or refused? Why? @ -None Did you discuss the management of the patient with other professionals (professionals i.e. , PA, AUTOBODY TECHNICIAN, lab, RT, psych nurse, social welfare research worker, recovery unit operator, teacher, staff command and control officer, embedded case manager)? Give summary @ -Case was discussed with practitioner Brook Goldsmith who will admit covering Dr. Hi Was smoking cessation discussed for >3mins.? @ -No Was critical care preformed (if so, how long)? @ -No Were there social determinants of health that impacted care today? How? (Homelessness, low income, unemployed, alcoholism, drug addiction, transportation, low edu. Level, literacy, decrease access to med. care, care home, rehab)? @ -No Was there de-escalation of care discussed even if they declined (Discuss DNR or withdrawal of care, Hospice)? DNR status @ -No What co-morbidities impacted this encounter? (DM, HTN, Smoking, COPD, CAD, Cancer, CVA, ARF, Chemo, Hep., AIDS, mental health diagnosis, sleep apnea, m orbid obesity)? @ -None Was patient admitted / discharged? Hospital course, mention meds given and route, prescriptions, significant lab abnormalities, going to OR and other pertinent info. @ -Patient presents with multiple complaints including nausea vomiting abdominal pain headache chest discomfort and others. Patient states she has had some chest discomfort still since her heart stents. Patient does have mild elevation of troponin. Patient will be admitted with cardiac consult. Patient reevaluated and updated. [place] orders written. Undiagnosed new problem with uncertain prognosis? @ -No Drug Therapy requiring intensive monitoring for toxicity (Heparin, Nitro, Insulin, Cardizem)? @ -No Were any procedures done? @ -No Diagnosis/symptom? @ -Chest pain Acute, or Chronic, or Acute on Chronic? @ -Acute Uncomplicated (without systemic symptoms) or Complicated (systemic symptoms)? @ -Default Side effects of treatment? @ -No Exacerbation, Progression, or Severe Exacerbation? @ -No Poses a threat to life or bodily function? How? (Chest pain, [place], [place], pneumonia, PE, COPD, DKA, ARF, appy, cholecystitis, CVA, Diverticulitis, Homicidal, Suicidal, threat to staff... and all critical care pts) @ -No - Lab Data Result diagrams: 03/01/25 16:43 03/01/25 16:43 Lab Results 03/01/25 03/01/25 03/01/25 Range/Units 16:43 16:43 17:05 WBC 5.38 (4.50-10.00) 10*3/uL RBC 6.16 H (4.10-5.20) 10*6/uL Hgb 15.2 H D (12.0-15.0) g/dL Hct 48.0 H (37.2-46.3) % MCV 77.9 L (80.0-97.0) fL MCH 24.7 L (27.0-32.0) pg MCHC 31.7 L (32.0-37.0) g/dL Plt Count 303 (140-440) 10*3/uL MPV 9.2 L (9.5-12.2) fL Immature Gran % (Auto) 0.2 % Neutrophils % 62.0 % Lymphocytes % 21.6 % Monocytes % 10.8 % Eosinophils % 4.5 % Basophils % 0.9 % Immature Gran # 0.01 (0.00-0.04) 10*3/uL Neutrophils # 3.34 (1.80-7.70) 10*3/uL Lymphocytes # 1.16 (0.90-5.00) 10*3/uL Monocytes # 0.58 (0.20-1.00) 10*3/uL Eosinophils # 0.24 (0.04-0.35) 10*3/uL Basophils # 0.05 (0.00-0.10) 10*3/uL PT 11.1 (10.0-12.5) sec INR 1.0 (<1.2) APTT 22.9 (22.0-30.0) sec Sodium 130 L (137-145) mmol/L Potassium 5.2 H (3.5-5.1) mmol/L Chloride 98 (98-107) mmol/L Carbon Dioxide 26 (22-30) mmol/L Anion Gap 6 mmol/L BUN 21 H (7-17) mg/dL Creatinine 0.60 (0.52-1.04) mg/dL Est GFR (CKD-EPI)AfAm >90 (>60 ml/min/1.73 sqM) Est GFR (CKD-EPI)NonAf >90 (>60 ml/min/1.73 sqM) Glucose 126 H (74-99) mg/dL Calcium 9.5 (8.4-10.2) mg/dL Total Bilirubin 1.3 (0.2-1.3) mg/dL AST 51 H (14-36) U/L ALT 22 (4-34) U/L Alkaline Phosphatase 214 H (38-126) U/L Troponin I (0.000-0.034) ng/mL Total Protein 7.2 (6.3-8.2) g/dL Albumin 3.4 L (3.5-5.0) g/dL Amylase 40 (30-110) U/L Lipase 129 (23-300) U/L /16/ Range/Units 17:05 WBC (4.50-10.00) 10*3/uL RBC (4.10-5.20) 10*6/uL Hgb (12.0-15.0) g/dL Hct (37.2-46.3) % MCV (80.0-97.0) fL MCH (27.0-32.0) pg MCHC (32.0-37.0) g/dL Plt Count (140-440) 10*3/uL MPV (9.5-12.2) fL Immature Gran % (Auto) % Neutrophils % % Lymphocytes % % Monocytes % % Eosinophils % % Basophils % % Immature Gran # (0.00-0.04) 10*3/uL Neutrophils # (1.80-7.70) 10*3/uL Lymphocytes # (0.90-5.00) 10*3/uL Monocytes # (0.20-1.00) 10*3/uL Eosinophils # (0.04-0.35) 10*3/uL Basophils # (0.00-0.10) 10*3/uL PT (10.0-12.5) sec INR (<1.2) APTT (22.0-30.0) sec Sodium (137-145) mmol/L Potassium (3.5-5.1) mmol/L Chloride (98-107) mmol/L Carbon Dioxide (22-30) mmol/L Anion Gap mmol/L BUN (7-17) mg/dL Creatinine (0.52-1.04) mg/dL Est GFR (CKD-EPI)AfAm (>60 ml/min/1.73 sqM) Est GFR (CKD-EPI)NonAf (>60 ml/min/1.73 sqM) Glucose (74-99) mg/dL Calcium (8.4-10.2) mg/dL Total Bilirubin (0.2-1.3) mg/dL AST (14-36) U/L ALT (4-34) U/L Alkaline Phosphatase (38-126) U/L Troponin I 0.038 H* (0.000-0.034) ng/mL Total Protein (6.3-8.2) g/dL Albumin (3.5-5.0) g/dL Amylase (30-110) U/L Lipase (23-300) U/L Disposition Clinical Impression: Chest pain Disposition: ADMITTED IP TO THIS HOSP Is patient prescribed a controlled substance at d/c from ED?: No Referrals: Bee Olguin III, MD [Primary Care Provider] - 1-2 days Time of Disposition: 19:59
[2025-03-01 17:09] LABS: Basophils # (A) 0.05 10*3/uL (0.00-0.10); Basophils % (A) 0.9 %; Eosinophils # (A) 0.24 10*3/uL (0.04-0.35); Eosinophils % (A) 4.5 %; Lymphocytes # (A) 1.16 10*3/uL (0.90-5.00); Lymphocytes % (A) 21.6 %; MCH 24.7 pg (27.0-32.0); MCHC 31.7 g/dL (32.0-37.0); MCV 77.9 fL (80.0-97.0); Mean Platelet Volume 9.2 fL (9.5-12.2); Monocytes # (A) 0.58 10*3/uL (0.20-1.00); Monocytes % (A) 10.8 %; Neutrophils # (A) 3.34 10*3/uL (1.80-7.70); Platelet Count 303 10*3/uL (140-440); RBC 6.16 10*6/uL (4.10-5.20); RDW 20.4 % (11.5-14.5); WBC 5.38 10*3/uL (4.50-10.00)
[2025-03-01 17:11] LABS: HGB 15.2 g/dL (12.0-15.0)
[2025-03-01 17:22] LABS: ALT 22 U/L (4-34); African American GFR (CKD) >90 (>60 ml/min/1.73 sqM); Amylase 40 U/L (30-110); Anion Gap 6 mmol/L; Blood Urea Nitrogen 21 mg/dL (7-17); Calcium 9.5 mg/dL (8.4-10.2); Carbon Dioxide 26 mmol/L (22-30); Chloride 98 mmol/L (98-107); Glucose 126 mg/dL (74-99); Lipase 129 U/L (23-300); Non-African American GFR(CKD) >90 (>60 ml/min/1.73 sqM); Sodium 130 mmol/L (137-145); Total Bilirubin 1.3 mg/dL (0.2-1.3)
[2025-03-01 17:26] LABS: AST 51 U/L (14-36); Albumin 3.4 g/dL (3.5-5.0); Alkaline Phosphatase 214 U/L (38-126); Potassium 5.2 mmol/L (3.5-5.1); Total Protein 7.2 g/dL (6.3-8.2)
[2025-03-01] MEDS: SODIUM CHLORIDE 0.9% 1,000 ML IV ONE (17:28)
[2025-03-01] MEDS: FAMOTIDINE 20 MG/2 ML VIAL IV STA (17:29)
[2025-03-01] MEDS: METOCLOPRAMIDE 5 MG/ML 2 ML VIAL IVP STA (17:29)
[2025-03-01] MEDS: diphenhydrAMINE 50 MG/ML 1 ML VIAL IVP STA (17:29)
[2025-03-01 17:32] LABS: Partial Thromboplastin Time 22.9 sec (22.0-30.0); Prothrombin Time 11.1 sec (10.0-12.5)
--- NOTE | 2025-03-01 17:58 | XR ---
EXAMINATION TYPE: XR KUB DATE OF EXAM: 03/01/2025 5:44 PM COMPARISON: Multiple prior radiographs, most recently dated 01/03/1947. CLINICAL INDICATION: Female, 44 years old with history of abdominal pain; PHH, pain TECHNIQUE: One radiographic view of the abdomen was obtained. FINDINGS: The bowel gas pattern is nonspecific without dilated loops of small or large bowel. . Fecal material and gas are demonstrated throughout the colon and rectum. There is no evidence for organomegaly or pneumoperitoneum. The osseous structures are intact. No ab normal calcifications are present. IMPRESSION: Nonspecific bowel gas pattern without radiographic evidence for acute process. [facility], , 03/01/2025 5:56 PM
[2025-03-01] MEDS ORDERED: NALOXONE 0.4 MG/ML 1 ML VIAL IV PRN (19:59)
[2025-03-01] MEDS: BUMETANIDE 1 MG TAB PO SCH (20:40)
[2025-03-01] MEDS: PANTOPRAZOLE 40 MG/10 ML VIAL IV SCH (20:40)
[2025-03-01] MEDS: HYDROcodone/APAP 10-325MG 1 EACH TAB PO PRN (20:40)
[2025-03-01] MEDS: SACUBITRIL/VALSARTAN 24 MG-26 MG TABLET PO SCH (20:40)
[2025-03-01] MEDS: METOPROLOL SUCCINATE (ER) 50 MG TAB.ER.24H PO SCH (20:40)
[2025-03-02] MEDS: ONDANSETRON 4 MG/2 ML VIAL IVP PRN (00:31)
[2025-03-02] MEDS ORDERED: ALBUTEROL NEBULIZED 2.5 MG/3 ML INHALATION PRN (08:05)
[2025-03-02] MEDS ORDERED: DEXTROSE 50% SYRINGE 50 ML IVP PRN ×2 (08:14)
[2025-03-02 08:33] LABS: Glucose,Whole Blood 110 mg/dL (70-110)
--- NOTE | 2025-03-02 08:39 | XR ---
EXAMINATION TYPE: XR chest 2V DATE OF EXAM: 03/02/2025 8:24 AM COMPARISON: Chest radiographs from 02/23/2025 CLINICAL INDICATION: Female, 44 years old with history of chest pain; history of HF; PHH TECHNIQUE: XR chest 2V Frontal and lateral views of the chest. FINDINGS: Lungs/Pleura: There is no evidence of pleural effusion, focal consolidation, or pneumothorax. Pulmonary vascularity: Unremarkable. Heart/mediastinum: Cardiomediastinal silhouette is unremarkable. Musculoskeletal: No acute osseous pathology. IMPRESSION: No acute cardiopulmonary disease/process. [facility], , 03/02/2025 8:36 AM
[2025-03-02] MEDS: ATORVASTATIN 40 MG TAB PO SCH (08:44)
[2025-03-02] MEDS: levETIRAcetam 500 MG TAB PO SCH (08:44)
[2025-03-02] MEDS: SPIRONOLACTONE 25 MG TAB PO SCH (08:46)
[2025-03-02] MEDS: ASPIRIN 81 MG PO SCH (08:46)
[2025-03-02] MEDS: DAPAGLIFLOZIN PROPANEDIOL 10 MG TABLET PO SCH (08:46)
[2025-03-02 10:18] LABS: Basophils # (A) 0.07 X 10*3/uL (0.00-0.10); Basophils % (A) 1.3 %; Eosinophils # (A) 0.29 X 10*3/uL (0.04-0.35); Eosinophils % (A) 5.3 %; HCT 53.5 % (37.2-46.3); HGB 15.7 g/dL (12.0-15.0); Lymphocytes # (A) 1.41 X 10*3/uL (0.90-5.00); Lymphocytes % (A) 25.9 %; MCH 23.4 pg (27.0-32.0); MCHC 29.3 g/dL (32.0-37.0); MCV 79.9 FL (80.0-97.0); Mean Platelet Volume 9.8 FL (9.5-12.2); Monocytes # (A) 0.53 X 10*3/uL (0.20-1.00); Monocytes % (A) 9.7 %; NRBC Per 100 WBC 0 X 10*3/uL (0.00-0.01); Neutrophils # (A) 3.14 X 10*3/uL (1.80-7.70); Neutrophils % (A) 57.6 %; Platelet Count 308 X 10*3/uL (140-440); RDW 20.6 % (11.5-14.5); WBC 5.45 X 10*3/uL (4.50-10.00)
[2025-03-02 11:09] LABS: ALT 25 U/L (8-44); AST 40 U/L (13-35); Albumin 3.2 g/dL (3.8-4.9); Albumin/Globulin Ratio 0.86 Ratio (1.60-3.17); Alkaline Phosphatase 234 U/L (41-126); BUN/Creat Ratio 20.62 Ratio (12.00-20.00); Blood Urea Nitrogen 16.5 mg/dL (9.0-27.0); Calcium 9.9 mg/dL (8.7-10.3); Carbon Dioxide 23.7 mmol/L (21.6-31.8); Chloride 96 mmol/L (96-109); Globulin 3.7 g/dL (1.6-3.3); Glucose 111 mg/dL (70-110); Potassium 4.1 mmol/L (3.5-5.5); Sodium 135 mmol/L (135-145); Total Bilirubin 0.5 mg/dL (0.3-1.2); Total Protein 6.9 g/dL (6.2-8.2)
[2025-03-02 12:22] LABS: Glucose,Whole Blood 126 mg/dL (70-110)
[2025-03-02] MEDS: INSULIN LISPRO (HumaLOG) 100 UNIT/ML 10 mL VL SQ SCH (12:22)
[2025-03-02] MEDS: HYDROmorphone 1 MG/ML 1 ML SYRINGE IVP PRN (12:30)
[2025-03-02] MEDS: APIXABAN 5 MG TAB PO SCH (12:31)
[2025-03-02] MEDS: CLOPIDOGREL 75 MG TAB PO SCH (12:31)
--- NOTE | 2025-03-02 13:03 | P.CRDCN ---
History of Present Illness History of present illness: HISTORY OF PRESENT ILLNESS: This is a 44-year-old female with a past medical history significant for coronary artery disease, cardiomyopathy, diabetes, gastroparesis, congestive heart failure, and hyperlipidemia. Patient follows in the office with Dr. Silverio. We have been asked to see the patient in consultation for chest pain. Patient examined at the bedside in the emergency room. Patient states she presented to the hospital for chief complaint of nausea and throwing up. Patient was discharged home the day prior as she was admitted for gastroparesis and similar symptoms. She reports having an episode of chest pain on Saturday. However she denies any further episodes of chest pain or pressure. She is chest pain-free at the time of examination. She denies shortness of breath. Vital signs are stable. DIAGNOSTICS: - EKG reveals sinus mechanism with no signs of acute ischemia. - Chest xray negative for acute process - Laboratory data: WBC 5.38. Hemoglobin 15.2. Platelet count 303. Sodium 130. Potassium 5.2. BUN 21. Creatinine 0.60. Troponin 0.038. 0.033. 0.042. - Current home cardiac medications include Aldactone 25 mg daily, Entresto 24-26 mg twice a day, metoprolol succinate 50 mg daily, Farxiga 10 mg daily, Plavix 75 mg daily, Bumex 1 mg daily, Lipitor 40 mg daily, aspirin 81 mg daily, Eliquis 5 mg twice a day. - Most recent echocardiogram obtained in January 2025 revealing ejection fraction 20 to 25%, moderate pulmonary hypertension, trace aortic regurgitation, moderate tricuspid regurgitation, trace mitral regurgitation - Cardiac catheterization history: 02/19/2025 with stenting of the proximal and mid LAD with use of IVUS and Impella REVIEW OF SYSTEMS: At the time of my exam: CONSTITUTIONAL: Denies fever or chills. HEENT: Denies blurred vision, vision changes, or eye pain. Denies hemoptysis CARDIOVASCULAR: Denies chest pain. Denies orthopnea. Denies PND. Denies palpitations RESPIRATORY: Denies shortness of breath. GASTROINTESTINAL: Denies abdominal pain. Denies nausea or vomiting. HEMATOLOGIC: Denies bleeding disorders. GENITOURINARY: Denies any blood in urine. SKIN: Denies pruitis. Denies rash. PHYSICAL EXAM: VITAL SIGNS: Reviewed. GENERAL: Well-developed in no acute distress. HEENT: Head is normocephalic. Pupils are equal, round. Sclerae anicteric. Mucous membranes of the mouth are moist. Neck supple. No JVD or thyromegaly LUNGS: Respirations even and unlabored. Lungs essentially clear to auscultation bilaterally. HEART: Regular rate and rhythm. S1 and S2 heard. ABDOMEN: Soft. Nondistended. Nontender. EXTREMITIES: Normal range of motion. No clubbing or cyanosis. Peripheral pulses intact. No lower extremity edema NEUROLOGIC: Awake and alert. Oriented x 3. ASSESSMENT: Nausea and vomiting Diarrhea Chronic abdominal pain History of gastroparesis with recent admission Coronary artery disease with recent stenting to the proximal and mid LAD, 02/19/2025 History of DVT, on [facility] outpatient Ischemic cardiomyopathy, 20 to 25% Chronic heart failure with reduced EF Currently euvolemic Hyperlipidemia Diabetes, uncontrolled History of CVA x 2 PLAN: An acute coronary event has been ruled out Resume home cardiac medications Patient is currently stable from a cardiac standpoint Treatment of nausea and gastroparesis per primary medicine Further recommendations pending patient course Nurse practitioner note has been reviewed by physician. Signing provider agrees with the documented findings, assessment, and plan of care documented by NEONATAL DOCTOR as a scribe. Past Medical History Past Medical History: Asthma, Heart Failure, CVA/TIA, Diabetes Mellitus, GI Bleed, Pneumonia, Seizure Disorder Additional Past Medical History / Comment(s): bilateral pleural effusion, 09/2024 bilateral hip and ankle bursitis, 3 discs in lower back deteroitrating and 2 bulging. History of Any Multi-Drug Resistant Organisms: None Reported, MRSA Date of last positivie culture/infection: 2011 MDRO Source:: Lungs Past Surgical History: Section, Cholecystectomy, Tubal Ligation Additional Past Surgical History / Comment(s): Colonoscopies, right groin mole remove, kidney stones surgically removed, bilateral cataracts removed, glaucoma surgery, bilateral retinal surgery for bleeding, bilateral thoracentesis Heart Cath with 2 stents Past Anesthesia/Blood Transfusion Reactions: No Reported Reaction Past Psychological History: Anxiety Smoking Status: Former smoker Past Alcohol Use History: None Reported Past Drug Use History: None Reported - Past Family History Father Family Medical History: Cancer, Diabetes Mellitus Additional Family Medical History / Comment(s): COLON CANCER, MELANOMA ON HIS CHEST AND HE ALSO HAS BENIGN BRAIN TUMORS X2, pancreatic cancer. Mother Family Medical History: Cancer, Diabetes Mellitus, Dialysis, Myocardial Infarction ([place]) Additional Family Medical History / Comment(s): MELANOMA THAT METASTASIZED TO THE BRAIN- AT AGE 49. Mother had an [place] at age 34 with angioplasty at age 36 yrs and another PR, and history of diabetes. Patient has many aunts, uncles and nieces with diabetes on her mother's side. Brother(s) Family Medical History: Cancer Additional Family Medical History / Comment(s): Patient has one half-brother with kidney stones, full brother with no major medical problems. Patient has 1 sister with no major medical problems. Daughter(s) Family Medical History: Seizure Disorder Additional Family Medical History / Comment(s): Patient has 2 daughters and her youngest daughter has history of seizure disorder. Patient has one son with no major medical problems. Medications and Allergies Home Medications Medication Instructions Recorded Confirmed Type HYDROcodone/APAP 10-325MG [[place]olph 1 tab PO TID PRN 01/14/18 03/01/25 History 10-325] levETIRAcetam [Keppra] 500 mg PO DAILY 08/29/23 03/01/25 History Albuterol Nebulized [Ventolin 2.5 mg INHALATION RT-QID PRN 11/04/24 03/01/25 History Nebulized] Apixaban [Eliquis] 5 mg PO BID 11/04/24 03/01/25 History Budesonide/Formoterol Fumarate 2 puff INHALATION RT-DAILY 11/04/24 03/01/25 History [Symbicort 160-4.5 Mcg Inhaler] Pantoprazole [Protonix] 40 mg PO DAILY 12/21/24 03/01/25 History Naproxen [Naprosyn] 500 mg PO BID PRN 12/31/24 03/01/25 History Aspirin 81 mg PO DAILY #30 tab 01/29/25 03/01/25 Rx Dapagliflozin Propanediol [Farxiga] 10 mg PO DAILY 90 Days #90 tab 02/20/25 03/01/25 Rx Metoprolol Succinate (ER) [Toprol 50 mg PO DAILY 90 Days #90 tab 02/20/25 03/01/25 Rx XL] Spironolactone [Aldactone] 25 mg PO DAILY #30 tab 02/20/25 03/01/25 Rx Sacubitril/Valsartan [Entresto 24 1 tab PO BID 02/24/25 03/01/25 History mg-26 mg Tablet] Metoclopramide HCl [Reglan] 5 mg PO TID PRN #20 tab 02/27/25 03/01/25 Rx Ondansetron Odt [Zofran ODT] 4 mg PO TID PRN #20 tab 02/27/25 03/01/25 Rx Atorvastatin [Lipitor] 40 mg PO DIRECTED 03/01/25 03/01/25 History Bumetanide [BUMEX] 1 mg PO DIRECTED 03/01/25 03/01/25 History Clopidogrel [Plavix] 75 mg PO DAILY 03/01/25 03/01/25 History Insulin Glargine,Hum.rec.anlog 20 units SQ DAILY 03/01/25 03/01/25 History [Lantus Solostar Pen] Allergies Allergy/AdvReac Type Severity Reaction Status Date / Time Penicillins Allergy Nausea & Verified 03/01/25 20:45 Vomiting, rash codeine AdvReac Nausea & Verified 03/01/25 20:45 Vomiting morphine AdvReac Nausea & Verified 03/01/25 20:45 Vomiting Sulfa (Sulfonamide AdvReac Nausea & Verified 03/01/25 20:45 Antibiotics) Vomiting, rash tramadol AdvReac Per Verified 03/01/25 20:45 patient, cannot take with Keppra Physical Exam Vitals: Vital Signs Temp Pulse Resp BP Pulse Ox 03/02/25 05:00 86 18 140/102 100 03/02/25 02:00 84 18 144/100 100 03/02/25 01:00 87 18 150/103 100 03/01/25 23:00 83 18 156/108 100 03/01/25 21:30 102 H 18 174/117 95 03/01/25 20:19 104 H 18 176/120 97 03/01/25 16:16 98.1 F 99 15 171/106 95 Intake and Output 03/01/25 03/02/25 03/02/25 22:59 06:59 14:59 Other: Weight 63.503 kg Results 03/02/25 06:00 03/02/25 08:50 Cardiac Enzymes 03/01/25 03/01/25 03/01/25 Range/Units 16:43 17:05 20:17 AST 51 H (14-36) U/L Troponin I 0.038 H* 0.033 (0.000-0.034) ng/mL 03/02/25 Range/Units 00:16 AST (14-36) U/L Troponin I 0.042 H* (0.000-0.034) ng/mL Coagulation 03/01/25 Range/Units 17:05 PT 11.1 (10.0-12.5) sec APTT 22.9 (22.0-30.0) sec CBC 03/01/25 Range/Units 16:43 WBC 5.38 (4.50-10.00) 10*3/uL RBC 6.16 H (4.10-5.20) 10*6/uL Hgb 15.2 H D (12.0-15.0) g/dL Hct 48.0 H (37.2-46.3) % Plt Count 303 (140-440) 10*3/uL Comprehensive Metabolic Panel 03/01/25 Range/Units 16:43 Sodium 130 L (137-145) mmol/L Potassium 5.2 H (3.5-5.1) mmol/L Chloride 98 (98-107) mmol/L Carbon Dioxide 26 (22-30) mmol/L BUN 21 H (7-17) mg/dL Creatinine 0.60 (0.52-1.04) mg/dL Glucose 126 H (74-99) mg/dL Calcium 9.5 (8.4-10.2) mg/dL AST 51 H (14-36) U/L ALT 22 (4-34) U/L Alkaline Phosphatase 214 H (38-126) U/L Total Protein 7.2 (6.3-8.2) g/dL Albumin 3.4 L (3.5-5.0) g/dL Current Medications Generic Name Dose Route Start Last Admin Trade Name Freq PRN Reason Stop Dose Admin Hydrocodone Bitart/Acetaminophen 1 each 03/01/25 20:27 03/02/25 04:56 Hydrocodone/Apap 10-325mg 1 Each Tab PO 1 each Q8HR PRN Administration Pain Albuterol Sulfate 2.5 mg 03/02/25 08:05 Albuterol Nebulized 2.5 Mg/3 Ml INHALATION RT-QID PRN Shortness Of Breath Aspirin 81 mg 06/17/25 09:00 Aspirin 81 Mg PO DAILY [facility] Atorvastatin Calcium 40 mg 03/02/25 09:00 Atorvastatin 40 Mg Tab PO DAILY [facility] Bumetanide 1 mg 03/01/25 20:30 03/01/25 20:40 Bumetanide 1 Mg Tab PO 1 mg DAILY SUSAN Administration Dapagliflozin 10 mg 03/02/25 09:00 Dapagliflozin Propanediol 10 Mg Tablet PO DAILY [facility] Dextrose/Water 50 ml 03/02/25 08:14 Dextrose 50% Syringe 50 Ml IVP PER PROTOCOL PRN Hypoglycemia Protocol Dextrose/Water 25 ml 03/02/25 08:14 Dextrose 50% Syringe 50 Ml IVP PER PROTOCOL PRN Hypoglycemia Protocol Insulin Glargine 20 unit 03/02/25 21:00 Insulin Glargine (Lantus) 100 Unit/Ml Syr SQ HS [facility] Insulin Human Lispro 0 unit 03/02/25 12:30 Insulin Lispro (Humalog) 100 Unit/Ml 10 Ml Vl SQ ACHS [facility] Protocol Levetiracetam 500 mg 03/02/25 09:00 Levetiracetam 500 Mg Tab PO DAILY [facility] Naloxone HCl 0.2 mg 03/01/25 19:59 Naloxone 0.4 Mg/Ml 1 Ml Vial IV Q2M PRN Opioid Reversal Ondansetron HCl 4 mg 03/01/25 19:59 03/02/25 00:31 Ondansetron 4 Mg/2 Ml Vial IVP 4 mg Q8HR PRN Administration Nausea And Vomiting Pantoprazole Sodium 40 mg 03/01/25 20:00 03/01/25 20:40 Pantoprazole 40 Mg/10 Ml Vial IV 40 mg DAILY [facility] Administration Sacubitril/Valsartan 1 each 03/01/25 21:00 03/01/25 20:40 Sacubitril/Valsartan 24 Mg-26 Mg Tablet PO 1 each BID [facility] Administration Spironolactone 25 mg 03/02/25 09:00 Spironolactone 25 Mg Tab PO DAILY [facility] Intake and Output 03/01/25 03/02/25 03/02/25 22:59 06:59 14:59 Other: Weight 63.503 kg 03/01/25 16:43 03/01/25 16:43
--- NOTE | 2025-03-02 15:43 | P.HPIM ---
History of Present Illness H&P Date: 03/02/25 Patient is a 44-year-old female with diabetes (retinopathy, neuropathy, gastroparesis), ischemic cardiomyopathy (EF 20 to 25%), atrial fibrillation (on Eliquis) migraines, nephrolithiasis (s/p lithotripsy), asthma, seizure disorder, history of CVA/TIA, anxiety CAD with stent placement about a week and a half ago with Dr. Pidera. here for evaluation of nausea and vomiting. Patient reported that for the last 3 days she began to have several episodes of vomiting with food content nonbloody and nonbilious last night with abdominal discomfort. Heart failure in Sep 2024. She also had chest pressure substernal, radiated to the neck and back 05/26 lasted for about 2 hours improved with rest. Denied fe vers, chills, sweats, urinary frequency. On admission: Vitals: Temp 98.1 F, NM 99, RR 15, blood pressure 171/106, O2 saturation 95% on room air Labs: WBC 5.3, hemoglobin 15.2, MCV 77.9, platelet count 303,000, sodium 130, potassium 5.2, bicarb 26, BUN 21, creatinine 0.6, glucose 126, AST 51, ALT 214, albumin 3.4. Lipase 129. Troponin 0.03 initially. As increased to 0.04. Imaging: KUB x-ray showed nonspecific bowel gas pattern without evidence for acute process. EKG independently interpreted showed sinus rhythm with a rate of 97 bpm, no ST-T changes, QTc 416 MS ED documentation reviewed. Review of systems: Pertinent positives and negatives as discussed in HPI, a complete review of s ystems was performed and all other systems are negative. Physical examination: Vital signs reviewed General: non toxic, no distress, appears older than stated age, thin and frail appearing Derm: no unusual rashes/lesions, warm Head: atraumatic, normocephalic, symmetric Eyes: EOMI, anicteric sclera, pupils equal round reactive to light ENT: Nose and ears atraumatic Neck: No cervical lymphadenopathy, trachea midline, supple Mouth: no lip lesion, mucus membranes moist Cardiovascular: S1S2 reg, holosystolic murmur 3/6 best heard in left sternal boarder Lungs: CTA bilateral, no rhonchi, no rales, no accessory muscle use Abdominal: soft, nondistended, epigastric tenderness to deep plapation, no guarding Ext: muscle strength 5 out of 5 in all 4 extremities grossly, no gross muscle atrophy, no contractures, positive dorsalis pedis pulse bilateral, no edema, decreased sensation from below the knee to the toes Neuro: CN II-XI grossly intact, no gross focal neuro deficits Psych: Alert and oriented x 3, appropriate affect and mood Assessment/Plan: The patient is admitted with an anticipated greater than 2 midnight stay for evaluation of gastroparesis and chest pain to rule out ACS due to extensive cardiac history and recent stent placement Active: #Gastroparesis secondary to diabetes #Diabetes mellitus complicated with neuropathy and retinopathy KUB x-ray showed nonspecific bowel gas pattern without evidence for acute process Continue Zofran IV as needed. Resume home Reglan p.o. Continue with pain control with 1 mg of Dilaudid IVP every 4 hours as needed and [place] 10 p.o. as needed Clear liquid diet. Advance as tolerated Tight glycemic control #Chest pain, r/o ACS #History of ischemic cardiomyopathy (EF 20 to 25% in January 2025) EKG independently interpreted showed sinus rhythm with a rate of 97 bpm, no ST-T changes, QTc 416 MS Cardiac monitoring Supplemental oxygen as needed Trend troponin on admission. Troponin 0.03 initially. Has increased to 0.04 EKG as needed Monitor daily weight, InOs Continue with aspirin 81 mg daily Continue lipitor 40 mg daily Continue home Entresto, Aldactone, Farxiga, metoprolol Cardiology consulted #Microcytosis MCV 79.9, with Hgb elevated, possibly from dehydration Iron studies ordered Monitor CBC # Hyperkalemia Potassium 5.2 today Slight hemolysis Repeat potassium to reevaluate # Hypertensive urgency, improved Blood pressure 171/106. Has improved since admission Will monitor BP for now Chronic Conditions: #Diabetes mellitus Hemoglobin A1c 14.2 in 02/25/2025 Hold home medications Glucose Accu-Cheks ACHS Initiate Insulin sliding scale ACHS Lantus 20 units nightly Monitor for hypoglycemia #Asthma #Seizure disorder #History of CVA/TIA #Anxiety #GERD #Paroxysmal atrial fibrillation Patient is on home Eliquis and clopidogrel and aspirin. Per cardiology, resume Eliquis and clopidogrel on admission Continue with home Ventolin as needed and Keppra Hold Bumex for now DVT ppx: Eliquis 5 mg p.o. twice daily GI ppx: Protonix 40 mg IV daily CODE STATUS: Full Discussed with: Patient Anticipated discharge place: Home Nicole West MD PGY-1 Internal Medicine Dictation was produced using [employer] dictation software. please excuse any grammatical, word or spelling errors. Attestation: I have seen and examined this patient with my resident, assessment and plan discussed with the resident, agree with assessment and plan as written above. Dr. Guzman Past Medical History Past Medical History: Asthma, Heart Failure, CVA/TIA, Diabetes Mellitus, GI Bleed, Pneumonia, Seizure Disorder Additional Past Medical History / Comment(s): bilateral pleural effusion, 2024 bilateral hip and ankle bursitis, 3 discs in lower back deteroitrating and 2 bulging. History of Any Multi-Drug Resistant Organisms: None Reported, MRSA Date of last positivie culture/infection: 2011 MDRO Source:: Lungs Past Surgical History: Section, Cholecystectomy, Tubal Ligation Additional Past Surgical History / Comment(s): Colonoscopies, right groin mole remove, kidney stones surgically removed, bilateral cataracts removed, glaucoma surgery, bilateral retinal surgery for bleeding, bilateral thoracentesis Heart Cath with 2 stents Past Anesthesia/Blood Transfusion Reactions: No Reported Reaction Past Psychological History: Anxiety Smoking Status: Former smoker Past Alcohol Use History: None Reported Past Drug Use History: None Reported - Past Family History Father Family Medical History: Cancer, Diabetes Mellitus Additional Family Medical History / Comment(s): COLON CANCER, MELANOMA ON HIS CHEST AND HE ALSO HAS BENIGN BRAIN TUMORS X2, pancreatic cancer. Mother Family Medical History: Cancer, Diabetes Mellitus, Dialysis, Myocardial Infarction ([place]) Additional Family Medical History / Comment(s): MELANOMA THAT METASTASIZED TO THE BRAIN- AT AGE 49. Mother had an [place] at age 34 with angioplasty at age 36 yrs and another [place], and history of diabetes. Patient has many aunts, uncles and nieces with diabetes on her mother's side. Brother(s) Family Medical History: Cancer Additional Family Medical History / Comment(s): Patient has one half-brother with kidney stones, full brother with no major medical problems. Patient has 1 sister with no major medical problems. Daughter(s) Family Medical History: Seizure Disorder Additional Family Medical History / Comment(s): Patient has 2 daughters and her youngest daughter has history of seizure disorder. Patient has one son with no major medical problems. Medications and Allergies Home Medications Medication Instructions Recorded Confirmed Type HYDROcodone/APAP 10-325MG [[place] 1 tab PO TID PRN 01/14/18 03/01/25 History 10-325] levETIRAcetam [Keppra] 500 mg PO DAILY 08/29/23 03/01/25 History Albuterol Nebulized [Ventolin 2.5 mg INHALATION RT-QID PRN 11/04/24 03/01/25 History Nebulized] Apixaban [Eliquis] 5 mg PO BID 11/04/24 03/01/25 History Budesonide/Formoterol Fumarate 2 puff INHALATION RT-DAILY 11/04/24 03/01/25 History [Symbicort 160-4.5 Mcg Inhaler] Pantoprazole [Protonix] 40 mg PO DAILY 12/21/24 03/01/25 History Naproxen [Naprosyn] 500 mg PO BID PRN 12/31/24 03/01/25 History Aspirin 81 mg PO DAILY #30 tab 01/29/25 03/01/25 Rx Dapagliflozin Propanediol [Farxiga] 10 mg PO DAILY 90 Days #90 tab 02/20/25 03/01/25 Rx Metoprolol Succinate (ER) [Toprol 50 mg PO DAILY 90 Days #90 tab 02/20/25 03/01/25 Rx XL] Spironolactone [Aldactone] 25 mg PO DAILY #30 tab 02/20/25 03/01/25 Rx Sacubitril/Valsartan [Entresto 24 1 tab PO BID 02/24/25 03/01/25 History mg-26 mg Tablet] Metoclopramide HCl [Reglan] 5 mg PO TID PRN #20 tab 02/27/25 03/01/25 Rx Ondansetron Odt [Zofran ODT] 4 mg PO TID PRN #20 tab 02/27/25 03/01/25 Rx Atorvastatin [Lipitor] 40 mg PO DIRECTED 03/01/25 03/01/25 History Bumetanide [BUMEX] 1 mg PO DIRECTED 03/01/25 03/01/25 History Clopidogrel [Plavix] 75 mg PO DAILY 03/01/25 03/01/25 History Insulin Glargine,Hum.rec.anlog 20 units SQ DAILY 03/01/25 03/01/25 History [Lantus Solostar Pen] Allergies Allergy/AdvReac Type Severity Reaction Status Date / Time Penicillins Allergy Nausea & Verified 03/01/25 20:45 Vomiting, rash codeine AdvReac Nausea & Verified 03/01/25 20:45 Vomiting morphine AdvReac Nausea & Verified 03/01/25 20:45 Vomiting Sulfa (Sulfonamide AdvReac Nausea & Verified 03/01/25 20:45 Antibiotics) Vomiting, rash tramadol AdvReac Per Verified 03/01/25 20:45 patient, cannot take with Keppra Physical Exam Vitals: Vital Signs Temp Pulse Resp BP Pulse Ox 03/02/25 05:00 86 18 140/102 100 03/02/25 02:00 84 18 144/100 100 03/02/25 01:00 87 18 150/103 100 03/01/25 23:00 83 18 156/108 100 03/01/25 21:30 102 H 18 174/117 95 03/01/25 20:19 104 H 18 176/120 97 03/01/25 16:16 98.1 F 99 15 171/106 95 Intake and Output 03/01/25 03/02/25 03/02/25 22:59 06:59 14:59 Other: Weight 63.503 kg Results CBC & Chem 7: 03/02/25 06:00 03/02/25 08:50 Labs: Abnormal Lab Results - Last 24 Hours (Table) 03/01/25 03/01/25 03/01/25 Range/Units 16:43 16:43 17:05 RBC 6.16 H (4.10-5.20) 10*6/uL Hgb 15.2 H D (12.0-15.0) g/dL Hct 48.0 H (37.2-46.3) % MCV 77.9 L (80.0-97.0) fL MCH 24.7 L (27.0-32.0) pg MCHC 31.7 L (32.0-37.0) g/dL MPV 9.2 L (9.5-12.2) fL Sodium 130 L (137-145) mmol/L Potassium 5.2 H (3.5-5.1) mmol/L BUN 21 H (7-17) mg/dL Glucose 126 H (74-99) mg/dL AST 51 H (14-36) U/L Alkaline Phosphatase 214 H (38-126) U/L Troponin I 0.038 H* (0.000-0.034) ng/mL Albumin 3.4 L (3.5-5.0) g/dL 03/02/25 Range/Units 00:16 RBC (4.10-5.20) 10*6/uL Hgb (12.0-15.0) g/dL Hct (37.2-46.3) % MCV (80.0-97.0) fL MCH (27.0-32.0) pg MCHC (32.0-37.0) g/dL MPV (9.5-12.2) fL Sodium (137-145) mmol/L Potassium (3.5-5.1) mmol/L BUN (7-17) mg/dL Glucose (74-99) mg/dL AST (14-36) U/L Alkaline Phosphatase (38-126) U/L Troponin I 0.042 H* (0.000-0.034) ng/mL Albumin (3.5-5.0) g/dL
[2025-03-02 20:47] LABS: % Iron Saturation 27.93 (12.00-45.00)
[2025-03-02 21:02] LABS: Glucose,Whole Blood 123 mg/dL (70-110)
[2025-03-02] MEDS: INSULIN GLARGINE (LANTUS) 100 UNIT/ML SYR SQ SCH (21:12)
[2025-03-02] MEDS: METOCLOPRAMIDE 5 MG TAB PO PRN (21:37)
[2025-03-03 04:55] LABS: Basophils # (A) 0.09 10*3/uL (0.00-0.10); Basophils % (A) 1.9 %; Eosinophils # (A) 0.24 10*3/uL (0.04-0.35); Eosinophils % (A) 5.2 %; HCT 48.3 % (37.2-46.3); HGB 14.8 g/dL (12.0-15.0); Lymphocytes # (A) 1.28 10*3/uL (0.90-5.00); Lymphocytes % (A) 27.5 %; MCH 24.5 pg (27.0-32.0); MCHC 30.6 g/dL (32.0-37.0); MCV 79.8 fL (80.0-97.0); Mean Platelet Volume 8.9 fL (9.5-12.2); Monocytes # (A) 0.58 10*3/uL (0.20-1.00); Monocytes % (A) 12.4 %; Neutrophils # (A) 2.46 10*3/uL (1.80-7.70); Neutrophils % (A) 52.8 %; Platelet Count 251 10*3/uL (140-440); RBC 6.05 10*6/uL (4.10-5.20); RDW 20.3 % (11.5-14.5); WBC 4.66 10*3/uL (4.50-10.00)
[2025-03-03 05:09] LABS: African American GFR (CKD) >90 (>60 ml/min/1.73 sqM); Anion Gap 9 mmol/L; Blood Urea Nitrogen 23 mg/dL (7-17); Calcium 9.4 mg/dL (8.4-10.2); Carbon Dioxide 25 mmol/L (22-30); Chloride 98 mmol/L (98-107); Glucose 103 mg/dL (74-99); Non-African American GFR(CKD) >90 (>60 ml/min/1.73 sqM); Potassium 3.9 mmol/L (3.5-5.1); Sodium 132 mmol/L (137-145)
[2025-03-03 06:04] LABS: Glucose,Whole Blood 82 mg/dL (70-110)
[2025-03-03] MEDS: METOPROLOL SUCCINATE (ER) 50 MG TAB.ER.24H PO SCH (08:37)
--- NOTE | 2025-03-03 11:05 | P.PN ---
Subjective HISTORY OF PRESENT ILLNESS: This is a 44-year-old female with a past medical history significant for coronary artery disease, cardiomyopathy, diabetes, gastroparesis, congestive heart failure, and hyperlipidemia. Patient follows in the office with Dr. Silverio. We have been asked to see the patient in consultation for chest pain. Patient examined at the bedside in the emergency room. Patient states she presented to the hospital for chief complaint of nausea and throwing up. Patient was discharged home the day prior as she was admitted for gastroparesis and similar symptoms. She reports having an episode of chest pain on Saturday. However she denies any further episodes of chest pain or pressure. She is chest pain-free at the time of examination. She denies shortness of breath. Vital signs are stable. DIAGNOSTICS: - EKG reveals sinus mechanism with no signs of acute ischemia. - Chest xray negative for acute process - Laboratory data: WBC 5.38. Hemoglobin 15.2. Platelet count 303. Sodium 130. Potassium 5.2. BUN 21. Creatinine 0.60. Troponin 0.038. 0.033. 0.042. - Current home cardiac medications include Aldactone 25 mg daily, Entresto 24-26 mg twice a day, metoprolol succinate 50 mg daily, Farxiga 10 mg daily, Plavix 75 mg daily, Bumex 1 mg daily, Lipitor 40 mg daily, aspirin 81 mg daily, Eliquis 5 mg twice a day. - Most recent echocardiogram obtained in January 2025 revealing ejection fraction 20 to 25%, moderate pulmonary hypertension, trace aortic regurgitation, moderate tricuspid regurgitation, trace mitral regurgitation - Cardiac catheterization history: 02/19/2025 with stenting of the proximal and mid LAD with use of IVUS and Impella 03/03/2025 Patient examined this morning at the bedside. She denies any chest pain or pressure. She denies any shortness of breath. She continues to report nausea and dry heaves. She states that she is not feeling well due to her nausea. PHYSICAL EXAM: VITAL SIGNS: Reviewed. GENERAL: Well-developed in no acute distress. HEENT: Head is normocephalic. Pupils are equal, round. Sclerae anicteric. Mucous membranes of the mouth are moist. Neck supple. No JVD or thyromegaly LUNGS: Respirations even and unlabored. Lungs essentially clear to auscultation bilaterally. HEART: Regular rate and rhythm. S1 and S2 heard. ABDOMEN: Soft. Nondistended. Nontender. EXTREMITIES: Normal range of motion. No clubbing or cyanosis. Peripheral pulses intact. No lower extremity edema NEUROLOGIC: Awake and alert. Oriented x 3. ASSESSMENT: Nausea and vomiting Diarrhea Chronic abdominal pain History of gastroparesis with recent admission Coronary artery disease with recent stenting to the proximal and mid LAD, 02/19/2025 History of DVT, on [facility] outpatient Ischemic cardiomyopathy, 20 to 25% Chronic heart failure with reduced EF Currently euvolemic Hyperlipidemia Diabetes, uncontrolled History of CVA x 2 PLAN: Continue current cardiac medications Patient is currently stable from a cardiac standpoint Treatment of nausea and gastroparesis per primary medicine We will sign off. Please reconsult if needed. Nurse practitioner note has been reviewed by physician. Signing provider agrees with the documented findings, assessment, and plan of care documented by ANIMAL IMPERSONATOR as a scribe. Objective - Vital Signs Vital signs: Vital Signs Temp 97.4 F L 03/03/25 07:32 Pulse 88 03/03/25 07:32 Resp 16 03/03/25 07:32 BP 118/79 03/03/25 07:32 Pulse Ox 96 03/03/25 07:32 FiO2 Intake & Output 03/02/25 03/03/25 03/03/25 18:59 06:59 18:59 Intake Total 200 Output Total 0 Balance 0 200 Weight 62.3 kg Intake: Oral 200 Output: Urine 0 Other: Voiding Method Toilet Toilet # Voids 2 1 - Labs CBC & Chem 7: 03/03/25 04:40 03/03/25 04:40 Labs: Abnormal Lab Results - Last 24 Hours (Table) 03/02/25 03/02/25 03/02/25 Range/Units 06:00 12:20 20:59 RBC (4.10-5.20) 10*6/uL Hct (37.2-46.3) % MCV (80.0-97.0) fL MCH (27.0-32.0) pg MCHC (32.0-37.0) g/dL RDW (11.5-14.5) % MPV (9.5-12.2) fL Sodium (137-145) mmol/L Anion Gap 15.30 H (4.00-12.00) mmol/L BUN (7-17) mg/dL BUN/Creatinine Ratio 20.62 H (12.00-20.00) Ratio Glucose 111 H (70-110) mg/dL POC Glucose (mg/dL) 126 H 123 H (70-110) mg/dL AST 40 H (13-35) U/L Alkaline Phosphatase 234 H (41-126) U/L Albumin 3.2 L (3.8-4.9) g/dL Globulin 3.7 H (1.6-3.3) g/dL Albumin/Globulin Ratio 0.86 L (1.60-3.17) Ratio 03/03/25 03/03/25 Range/Units 04:40 04:40 RBC 6.05 H (4.10-5.20) 10*6/uL Hct 48.3 H (37.2-46.3) % MCV 79.8 L (80.0-97.0) fL MCH 24.5 L (27.0-32.0) pg MCHC 30.6 L (32.0-37.0) g/dL RDW 20.3 H (11.5-14.5) % MPV 8.9 L (9.5-12.2) fL Sodium 132 L (137-145) mmol/L Anion Gap (4.00-12.00) mmol/L BUN 23 H (7-17) mg/dL BUN/Creatinine Ratio (12.00-20.00) Ratio Glucose 103 H (70-110) mg/dL POC Glucose (mg/dL) (70-110) mg/dL AST (13-35) U/L Alkaline Phosphatase (41-126) U/L Albumin (3.8-4.9) g/dL Globulin (1.6-3.3) g/dL Albumin/Globulin Ratio (1.60-3.17) Ratio
[2025-03-03 11:44] LABS: Glucose,Whole Blood 104 mg/dL (70-110)
[2025-03-03 17:15] LABS: Glucose,Whole Blood 98 mg/dL (70-110)
--- NOTE | 2025-03-03 18:08 | P.PN ---
Subjective Progress Note Date: 03/03/25 Patient is a 44-year-old female with diabetes (retinopathy, neuropathy, gastroparesis), ischemic cardiomyopathy (EF 20 to 25%), atrial fibrillation (on Eliquis) migraines, nephrolithiasis (s/p lithotripsy), asthma, seizure disorder, history of CVA/TIA, anxiety CAD with stent placement about a week and a half ago with Dr. Piedra. here for evaluation of nausea and vomiting. Patient reported that for the last 3 days she began to have several episodes of vomiting with food content nonbloody and nonbilious last night with abdominal discomfort. Heart failure in Sep 2024. She also had chest pressure substernal, radiated to the neck and back 05/26 lasted for about 2 hours improved with rest. Denied fevers, chills, sweats, urinary frequency. On admission: Vitals: Temp 98.1 F, SC 99, RR 15, blood pressure 171/106, O2 saturation 95% on room air Labs: WBC 5.3, hemoglobin 15.2, MCV 77.9, platelet count 303,000, sodium 130, potassium 5.2, bicarb 26, BUN 21, creatinine 0.6, glucose 126, AST 51, ALT 214, albumin 3.4. Lipase 129. Troponin 0.03 initially. As increased to 0.04. Imaging: KUB x-ray showed nonspecific bowel gas pattern without evidence for acute process. EKG independently interpreted showed sinus rhythm with a rate of 97 bpm, no ST-T changes, QTc 416 MS 03/03/2025 patient seen and examined at bedside. Still nauseous requiring Zofran. Having peripheral neuropathy and requiring IV Dilaudid for pain. No acute events overnight. Labs: WBC 4.6, hemoglobin 14.8, MCV 79.8, platelet 251, 000, sodium 132, potassium 3.9, bicarb 25, 23, 0.66, glucose 103, calcium 9.4. Iron panel within normal limits. Review of systems: Pertinent positives and negatives as discussed in HPI, a complete review of systems was performed and all other systems are negative. Physical examination: Vital signs reviewed General: non toxic, no distress, appears older than stated age, thin and frail appearing Derm: no unusual rashes/lesions, warm Head: atraumatic, normocephalic, symmetric Eyes: EOMI, anicteric sclera, pupils equal round reactive to light ENT: Nose and ears atraumatic Neck: No cervical lymphadenopathy, trachea midline, supple Mouth: no lip lesion, mucus membranes moist Cardiovascular: S1S2 reg, holosystolic murmur 3/6 best heard in left sternal boarder Lungs: CTA bilateral, no rhonchi, no rales, no accessory muscle use Abdominal: soft, nondistended, epigastric tenderness to deep plapation, no guarding Ext: muscle strength 5 out of 5 in all 4 extremities grossly, no gross muscle atrophy, no contractures, positive dorsalis pedis pulse bilateral, no edema, decreased sensation from below the knee to the toes Neuro: CN II-XI grossly intact, no gross focal neuro deficits Psych: Alert and oriented x 3, appropriate affect and mood Assessment/Plan: The patient is admitted with an anticipated greater than 2 midnight stay for evaluation of gastroparesis and chest pain to rule out ACS due to extensive cardiac history and recent stent placement Active: #Gastroparesis secondary to diabetes #Diabetes mellitus complicated with neuropathy and retinopathy KUB x-ray showed nonspecific bowel gas pattern without evidence for acute process Continue Zofran IV as needed. Resume home Reglan p.o. Continue with pain control with 1 mg of Dilaudid IVP every 4 hours as needed and [place] 10 p.o. as needed Initiate pregabalin 50mg p.o twice daily Clear liquid diet. Advance as tolerated Hemoglobin A1c 14.2 in 02/25/2025 Glucose Accu-Cheks ACHS Initiate Insulin sliding scale ACHS Lantus 20 units nightly Monitor for hypoglycemia #Chest pain, r/o ACS #History of ischemic cardiomyopathy (EF 20 to 25% in January 2025) EKG independently interpreted showed sinus rhythm with a rate of 97 bpm, no ST-T changes, QTc 416 MS Cardiac monitoring Supplemental oxygen as needed Trend troponin on admission. Troponin 0.03 initially -> 0.04 -> 0.02 EKG as needed Monitor daily weight, InOs Continue with aspirin 81 mg daily Continue lipitor 40 mg daily Continue home Entresto, Aldactone, Farxiga, metoprolol Cardiology consulted #Microcytosis likely from poor oral intake MCV 79.8, with Hgb elevated, possibly from dehydration Iron studies WNL Monitor CBC # Hyperkalemia, resolved Potassium 3.9 today # Hypertensive urgency, improved Blood pressure 130s SPB. Has improved since admission Will monitor BP for now Chronic Conditions: #Asthma #Seizure disorder #History of CVA/TIA #Anxiety #GERD #Paroxysmal atrial fibrillation Patient is on home Eliquis and clopidogrel and aspirin. Per cardiology, resume Eliquis and clopidogrel on admission Continue with home Ventolin as needed and Keppra Hold Bumex for now DVT ppx: Eliquis 5 mg p.o. twice daily GI ppx: Protonix 40 mg PO daily CODE STATUS: Full Discussed with: Patient Anticipated discharge place: Home Nicole West MD PGY-1 Internal Medicine Objective - Vital Signs Vital signs: Vital Signs Temp 97.4 F L 03/03/25 07:32 Pulse 88 03/03/25 07:32 Resp 16 03/03/25 07:32 BP 118/79 03/03/25 07:32 Pulse Ox 96 03/03/25 07:32 FiO2 Intake & Output 03/02/25 03/03/25 03/03/25 18:59 06:59 18:59 Output Total 0 Balance 0 Weight 62.3 kg Output: Urine 0 Other: Voiding Method Toilet # Voids 2 - Labs CBC & Chem 7: 03/03/25 04:40 03/03/25 04:40 Labs: Abnormal Lab Results - Last 24 Hours (Table) 03/02/25 03/02/25 03/02/25 Range/Units 06:00 06:00 12:20 RBC 6.70 H (4.10-5.20) X 10*6/uL Hgb 15.7 H (12.0-15.0) g/dL Hct 53.5 H (37.2-46.3) % MCV 79.9 L (80.0-97.0) FL MCH 23.4 L (27.0-32.0) pg MCHC 29.3 L (32.0-37.0) g/dL RDW 20.6 H (11.5-14.5) % MPV (9.5-12.2) fL Sodium (137-145) mmol/L Anion Gap 15.30 H (4.00-12.00) mmol/L BUN (7-17) mg/dL BUN/Creatinine Ratio 20.62 H (12.00-20.00) Ratio Glucose 111 H (70-110) mg/dL POC Glucose (mg/dL) 126 H (70-110) mg/dL AST 40 H (13-35) U/L Alkaline Phosphatase 234 H (41-126) U/L Albumin 3.2 L (3.8-4.9) g/dL Globulin 3.7 H (1.6-3.3) g/dL Albumin/Globulin Ratio 0.86 L (1.60-3.17) Ratio 03/02/25 03/03/25 03/03/25 Range/Units 20:59 04:40 04:40 RBC 6.05 H (4.10-5.20) X 10*6/uL Hgb (12.0-15.0) g/dL Hct 48.3 H (37.2-46.3) % MCV 79.8 L (80.0-97.0) FL MCH 24.5 L (27.0-32.0) pg MCHC 30.6 L (32.0-37.0) g/dL RDW 20.3 H (11.5-14.5) % MPV 8.9 L (9.5-12.2) fL Sodium 132 L (137-145) mmol/L Anion Gap (4.00-12.00) mmol/L BUN 23 H (7-17) mg/dL BUN/Creatinine Ratio (12.00-20.00) Ratio Glucose 103 H (70-110) mg/dL POC Glucose (mg/dL) 123 H (70-110) mg/dL AST (13-35) U/L Alkaline Phosphatase (41-126) U/L Albumin (3.8-4.9) g/dL Globulin (1.6-3.3) g/dL Albumin/Globulin Ratio (1.60-3.17) Ratio
[2025-03-03] MEDS: PREGABALIN 50 MG CAP PO SCH (20:27)
[2025-03-03 20:36] LABS: Glucose,Whole Blood 100 mg/dL (70-110)
[2025-03-03 20:36] LABS: Glucose,Whole Blood 44 mg/dL (70-110)
[2025-03-04 05:45] LABS: Basophils # (A) 0.08 10*3/uL (0.00-0.10); Basophils % (A) 1.3 %; Eosinophils # (A) 0.26 10*3/uL (0.04-0.35); Eosinophils % (A) 4.3 %; HCT 47.9 % (37.2-46.3); HGB 14.7 g/dL (12.0-15.0); Lymphocytes # (A) 1.49 10*3/uL (0.90-5.00); Lymphocytes % (A) 24.8 %; MCH 24.3 pg (27.0-32.0); MCHC 30.7 g/dL (32.0-37.0); Mean Platelet Volume 9.4 fL (9.5-12.2); Monocytes # (A) 0.52 10*3/uL (0.20-1.00); Monocytes % (A) 8.7 %; Neutrophils # (A) 3.65 10*3/uL (1.80-7.70); Neutrophils % (A) 60.9 %; Platelet Count 233 10*3/uL (140-440); RBC 6.06 10*6/uL (4.10-5.20); RDW 20.2 % (11.5-14.5)
[2025-03-04] MEDS: PANTOPRAZOLE 40 MG TABLET PO SCH (06:02)
[2025-03-04 06:05] LABS: Glucose,Whole Blood 80 mg/dL (70-110)
[2025-03-04 06:16] LABS: African American GFR (CKD) >90 (>60 ml/min/1.73 sqM); Anion Gap 7 mmol/L; Blood Urea Nitrogen 23 mg/dL (7-17); Calcium 9.3 mg/dL (8.4-10.2); Carbon Dioxide 27 mmol/L (22-30); Chloride 97 mmol/L (98-107); Glucose 75 mg/dL (74-99); Non-African American GFR(CKD) >90 (>60 ml/min/1.73 sqM); Potassium 3.8 mmol/L (3.5-5.1); Sodium 131 mmol/L (137-145)
[2025-03-04 08:51] VITALS: RESP 16; TEMP 97.5
[2025-03-04 12:48] LABS: Glucose,Whole Blood 91 mg/dL (70-110)
--- NOTE | 2025-03-04 15:01 | P.DS ---
Providers Date of admission: 03/01/25 20:02 Attending physician: Paul Kumar Primary care physician: Bee Shaffer [facility] Hospital Course: Hospital Course: Patient is a 44-year-old female with diabetes (retinopathy, neuropathy, gastroparesis), ischemic cardiomyopathy (EF 20 to 25%), atrial fibrillation (on Eliquis) migraines, nephrolithiasis (s/p lithotripsy), asthma, seizure disorder, history of CVA/TIA, anxiety CAD with stent placement about a week and a half ago with Dr. Piedra. here for evaluation of nausea and vomiting. Patient reported that for the last 3 days she began to have several episodes of vomiting with food content nonbloody and nonbilious last night with abdominal discomfort. Heart failure in Sep 2024. She also had chest pressure substernal, radiated to the neck and back 9/10 lasted for about 2 hours improved with rest. Denied fevers, chills, sweats, urinary frequency. On admission: Vitals: Temp 98.1 F, NE 99, RR 15, blood pressure 171/106, O2 saturation 95% on room air Labs: WBC 5.3, hemoglobin 15.2, MCV 77.9, platelet count 303,000, sodium 130, potassium 5.2, bicarb 26, BUN 21, creatinine 0.6, glucose 126, AST 51, ALT 214, albumin 3.4. Lipase 129. Troponin 0.03 initially. As increased to 0.04. Imaging: KUB x-ray showed nonspecific bowel gas pattern without evidence for acute process. EKG independently interpreted showed sinus rhythm with a rate of 97 bpm, no ST-T changes, QTc 416 MS Patient was admitted for the evaluation of nausea and vomiting secondary to gastroparesis and chest pain, to rule out ACS. Zofran IV, pain control with Dilaudid, clear liquid diet, cardiac monitoring, trending troponins, daily weights and SOLIS's, were ordered. Cardiology consulted and ACS has been ruled out. Patient symptoms improved with antiemetic medication and pain control. Pregabalin was initiated to improve pain secondary to peripheral neuropathy. Patient is cleared for discharge today and is to resume all home cardiac medications and to continue taking pregabalin. She advised to follow-up with her PCP and survey research analyst on an outpatient basis. Final Diagnosis: #Gastroparesis secondary to diabetes #Diabetes mellitus complicated with neuropathy and retinopathy #Chest pain, ACS rules out #History of ischemic cardiomyopathy (EF 20 to 25% in January 2025) #Microcytosis likely from poor oral intake, stable # Hyperkalemia, resolved # Hypertension Physical examination: General: non toxic, no distress, appears older than stated age, thin and frail appearing Derm: no unusual rashes/lesions, warm Head: atraumatic, normocephalic, symmetric Eyes: EOMI, anicteric sclera, pupils equal round reactive to light ENT: Nose and ears atraumatic Neck: No cervical lymphadenopathy, trachea midline, supple Mouth: no lip lesion, mucus membranes moist Cardiovascular: S1S2 reg, holosystolic murmur 3/6 best heard in left sternal boarder Lungs: CTA bilateral, no rhonchi, no rales, no accessory muscle use Abdominal: soft, nondistended, epigastric tenderness to deep plapation, no guarding Ext: muscle strength 5 out of 5 in all 4 extremities grossly, no gross muscle atrophy, no contractures, positive dorsalis pedis pulse bilateral, no edema, decreased sensation from below the knee to the toes Neuro: CN II-XI grossly intact, no gross focal neuro deficits Psych: Alert and oriented x 3, appropriate affect and mood Patient Condition at Discharge: Stable Plan - Discharge Summary New Discharge Prescriptions: New Pregabalin [Lyrica] 50 mg PO BID #60 cap Continue HYDROcodone/APAP 10-325MG [[place] 10-325] 1 tab PO TID PRN PRN Reason: Pain levETIRAcetam [Keppra] 500 mg PO DAILY Albuterol Nebulized [Ventolin Nebulized] 2.5 mg INHALATION RT-QID PRN PRN Reason: Shortness Of Breath Apixaban [Eliquis] 5 mg PO BID Naproxen [Naprosyn] 500 mg PO BID PRN PRN Reason: Pain Metoprolol Succinate (ER) [Toprol XL] 50 mg PO DAILY 90 Days #90 tab Spironolactone [Aldactone] 25 mg PO DAILY #30 tab Sacubitril/Valsartan [Entresto 24 mg-26 mg Tablet] 1 tab PO BID Metoclopramide HCl [Reglan] 5 mg PO TID PRN #20 tab PRN Reason: Nausea Ondansetron Odt [Zofran ODT] 4 mg PO TID PRN #20 tab PRN Reason: Nausea Clopidogrel [Plavix] 75 mg PO DAILY Atorvastatin [Lipitor] 40 mg PO DIRECTED Budesonide/Formoterol Fumarate [Symbicort 160-4.5 Mcg Inhaler] 2 puff INHALATION RT-DAILY Pantoprazole [Protonix] 40 mg PO DAILY Aspirin 81 mg PO DAILY #30 tab Dapagliflozin Propanediol [Farxiga] 10 mg PO DAILY 90 Days #90 tab Insulin Glargine,Hum.rec.anlog [Lantus Solostar Pen] 20 units SQ DAILY Bumetanide [BUMEX] 1 mg PO DIRECTED Discharge Medication List HYDROcodone/APAP 10-325MG [[place] 10-325] 1 tab PO TID PRN 01/14/18 [History] levETIRAcetam [Keppra] 500 mg PO DAILY 08/29/23 [History] Albuterol Nebulized [Ventolin Nebulized] 2.5 mg INHALATION RT-QID PRN 11/04/24 [History] Apixaban [Eliquis] 5 mg PO BID 11/04/24 [History] Budesonide/Formoterol Fumarate [Symbicort 160-4.5 Mcg Inhaler] 2 puff INHALATION RT-DAILY 11/04/24 [History] Pantoprazole [Protonix] 40 mg PO DAILY 12/21/24 [History] Naproxen [Naprosyn] 500 mg PO BID PRN 12/31/24 [History] Aspirin 81 mg PO DAILY #30 tab 01/29/25 [Rx] Dapagliflozin Propanediol [Farxiga] 10 mg PO DAILY 90 Days #90 tab 02/20/25 [Rx] Metoprolol Succinate (ER) [Toprol XL] 50 mg PO DAILY 90 Days #90 tab 02/20/25 [Rx] Spironolactone [Aldactone] 25 mg PO DAILY #30 tab 02/20/25 [Rx] Sacubitril/Valsartan [Entresto 24 mg-26 mg Tablet] 1 tab PO BID 02/24/25 [History] Metoclopramide HCl [Reglan] 5 mg PO TID PRN #20 tab 02/27/25 [Rx] Ondansetron Odt [Zofran ODT] 4 mg PO TID PRN #20 tab 02/27/25 [Rx] Atorvastatin [Lipitor] 40 mg PO DIRECTED 03/01/25 [History] Bumetanide [BUMEX] 1 mg PO DIRECTED 03/01/25 [History] Clopidogrel [Plavix] 75 mg PO DAILY 03/01/25 [History] Insulin Glargine,Hum.rec.anlog [Lantus Solostar Pen] 20 units SQ DAILY 03/01/25 [History] Pregabalin [Lyrica] 50 mg PO BID #60 cap 03/04/25 [Rx] Follow up Appointment(s)/Referral(s): Bee Olguin III, MD [Primary Care Provider] - 1-2 days Patient Instructions/Handouts: Diabetic Gastroparesis (DC)
[2025-03-04 15:43] VITALS: BP 113/78; PULSE 84
== END 2025-03-04 16:07 | disposition home or self-care (01) | DRG 48 ==
LOC: EC 16:13 → 6NMEDSUR 20:01 → OBSVTOIN 20:02 → 6NMEDSUR 20:17
PROVIDERS: ADMIT Hospitalist; ATTEND Hospitalist
DX: E11.43 Type 2 diabetes mellitus with diabetic autonomic (poly)neuropathy (principal); K31.84 Gastroparesis; I25.10 Atherosclerotic heart disease of native coronary artery without angina pectoris; I25.5 Ischemic cardiomyopathy; I48.0 Paroxysmal atrial fibrillation; I50.22 Chronic systolic (congestive) heart failure; J45.909 Unspecified asthma, uncomplicated; K21.9 Gastro-esophageal reflux disease without esophagitis; I11.0 Hypertensive heart disease with heart failure; I16.0 Hypertensive urgency; G89.29 Other chronic pain; G43.909 Migraine, unspecified, not intractable, without status migrainosus; E11.319 Type 2 diabetes mellitus with unspecified diabetic retinopathy without macular edema; E11.65 Type 2 diabetes mellitus with hyperglycemia; E78.5 Hyperlipidemia, unspecified; I08.3 Combined rheumatic disorders of mitral, aortic and tricuspid valves; E87.5 Hyperkalemia; F41.9 Anxiety disorder, unspecified; G40.909 Epilepsy, unspecified, not intractable, without status epilepticus; Z79.01 Long term (current) use of anticoagulants; Z79.02 Long term (current) use of antithrombotics/antiplatelets; Z79.4 Long term (current) use of insulin; Z79.51 Long term (current) use of inhaled steroids; Z79.82 Long term (current) use of aspirin; Z79.84 Long term (current) use of oral hypoglycemic drugs; Z79.899 Other long term (current) drug therapy; Z86.718 Personal history of other venous thrombosis and embolism; Z86.73 Personal history of transient ischemic attack (TIA), and cerebral infarction without residual deficits; Z87.442 Personal history of urinary calculi; Z87.891 Personal history of nicotine dependence; Z95.5 Presence of coronary angioplasty implant and graft; Z87.01 Personal history of pneumonia (recurrent); Z88.6 Allergy status to analgesic agent; Z88.5 Allergy status to narcotic agent; Z88.0 Allergy status to penicillin; Z88.2 Allergy status to sulfonamides
CPT/HCPCS: 36415; 71046; 74018; 80048; 80053; 82150; 82728; 83540; 83550; 83690; 84132; 84466; 84484; 85025; 85610; 85730; 93005; 96361; 96374; 96375; 96376; 99285

== ENCOUNTER 2025-03-05 18:33 | Observation (INO) | payer OTHER ==
[2025-03-05] MEDS: SODIUM CHLORIDE 0.9% 1,000 ML IV ONE (20:17)
[2025-03-05] MEDS: ONDANSETRON 4 MG/2 ML VIAL IVP STA (20:20)
--- NOTE | 2025-03-05 20:44 | ED ---
General Adult HPI - General Chief complaint: Chest Pain Stated complaint: Chest pain,[place] Time Seen by Provider: 03/05/25 18:53 Source: patient, EMS Mode of arrival: EMS - History of Present Illness Initial comments: This patient is a 44-year-old woman with history of diabetes, gastroparesis, and coronary artery disease status post recent stenting, who presents with complaint that she has had substernal chest pain going back 1 to 2 days. She states that she is also having persistent nausea and vomiting consistent with her gastroparesis for a similar period of time. The patient denies associated cardiac type symptoms, no diaphoresis, dyspnea, palpitations, syncope. Onset/Timin -: days(s) Location: chest, abdomen Radiation: non-radiation Quality: aching, constant Consistency: constant Improves with: none Worsens with: other (Vomiting) Associated Symptoms: nausea/vomiting Treatments Prior to Arrival: none - Related Data Home Medications Medication Instructions Recorded Confirmed HYDROcodone/APAP 10-325MG [[place] 1 tab PO TID PRN 01/14/18 03/01/25 10-325] levETIRAcetam [Keppra] 500 mg PO DAILY 08/29/23 03/01/25 Albuterol Nebulized [Ventolin 2.5 mg INHALATION RT-QID PRN 11/04/24 03/01/25 Nebulized] Apixaban [Eliquis] 5 mg PO BID 11/04/24 03/01/25 Budesonide/Formoterol Fumarate 2 puff INHALATION RT-DAILY 11/04/24 03/01/25 [Symbicort 160-4.5 Mcg Inhaler] Pantoprazole [Protonix] 40 mg PO DAILY 12/21/24 03/01/25 Naproxen [Naprosyn] 500 mg PO BID PRN 12/31/24 03/01/25 Sacubitril/Valsartan [Entresto 24 1 tab PO BID 02/24/25 03/01/25 mg-26 mg Tablet] Atorvastatin [Lipitor] 40 mg PO DIRECTED 03/01/25 03/01/25 Bumetanide [BUMEX] 1 mg PO DIRECTED 03/01/25 03/01/25 Clopidogrel [Plavix] 75 mg PO DAILY 03/01/25 03/01/25 Insulin Glargine,Hum.rec.anlog 20 units SQ DAILY 03/01/25 03/01/25 [Lantus Solostar Pen] Previous Rx's Medication Instructions Recorded Aspirin 81 mg PO DAILY #30 tab 01/29/25 Dapagliflozin Propanediol [Farxiga] 10 mg PO DAILY 90 Days #90 tab 02/20/25 Metoprolol Succinate (ER) [Toprol 50 mg PO DAILY 90 Days #90 tab 02/20/25 XL] Spironolactone [Aldactone] 25 mg PO DAILY #30 tab 02/20/25 Metoclopramide HCl [Reglan] 5 mg PO TID PRN #20 tab 02/27/25 Ondansetron Odt [Zofran ODT] 4 mg PO TID PRN #20 tab 02/27/25 Pregabalin [Lyrica] 50 mg PO BID #60 cap 03/04/25 Allergies Allergy/AdvReac Type Severity Reaction Status Date / Time Penicillins Allergy Nausea & Verified 03/05/25 18:43 Vomiting, rash codeine AdvReac Nausea & Verified 03/05/25 18:43 Vomiting morphine AdvReac Nausea & Verified 03/05/25 18:43 Vomiting Sulfa (Sulfonamide AdvReac Nausea & Verified 03/05/25 18:43 Antibiotics) Vomiting, rash tramadol AdvReac Per Verified 03/05/25 18:43 patient, cannot take with Keppra Review of Systems ROS Statement: Those systems with pertinent positive or pertinent negative responses have been documented in the HPI. ROS Other: All systems not noted in ROS Statement are negative. Constitutional: Denies: fever, chills, weakness Respiratory: Denies: cough, dyspnea Cardiovascular: Reports: as per HPI, chest pain. Denies: palpitations, edema, syncope Gastrointestinal: Reports: as per HPI, abdominal pain, nausea, vomiting. Denies: diarrhea, hematemesis, melena, hematochezia Genitourinary: Denies: dysuria, hematuria Musculoskeletal: Denies: back pain Skin: Denies: rash Neurological: Reports: headache. Denies: weakness, numbness Past Medical History Past Medical History: Asthma, Heart Failure, CVA/TIA, Diabetes Mellitus, Deep Vein Thrombosis (DVT), GI Bleed, Pneumonia, Seizure Disorder Additional Past Medical History / Comment(s): bilateral pleural effusion, 09/2024 bilateral hip and ankle bursitis, 3 discs in lower back deteroitrating and 2 bulging. CVA with vision impairment. DVT bilateral legs. History of Any Multi-Drug Resistant Organisms: None Reported, MRSA Date of last positivie culture/infection: 2011 MDRO Source:: Lungs Past Surgical History: Section, Cholecystectomy, Heart Catheterization With Stent, Tubal Ligation Additional Past Surgical History / Comment(s): Colonoscopies, right groin mole remove, kidney stones surgically removed, bilateral cataracts removed, glaucoma surgery, bilateral retinal surgery for bleeding, bilateral thoracentesis, Heart Cath with 2 stents Past Anesthesia/Blood Transfusion Reactions: No Reported Reaction Date of Last Stent Placement:: 02/19/25 Past Psychological History: Anxiety Smoking Status: Former smoker Past Alcohol Use History: None Reported Past Drug Use History: None Reported - Past Family History Father Family Medical History: Cancer, Diabetes Mellitus Additional Family Medical History / Comment(s): COLON CANCER, MELANOMA ON HIS CHEST AND HE ALSO HAS BENIGN BRAIN TUMORS X2, pancreatic cancer. Mother Family Medical History: Cancer, Diabetes Mellitus, Dialysis, Myocardial Infarction (MD) Additional Family Medical History / Comment(s): MELANOMA THAT METASTASIZED TO THE BRAIN- AT AGE 49. Mother had an MD at age 34 with angioplasty at age 36 yrs and another MD, and history of diabetes. Patient has many aunts, uncles and nieces with diabetes on her mother's side. Brother(s) Family Medical History: Cancer Additional Family Medical History / Comment(s): Patient has one half-brother with kidney stones, full brother with no major medical problems. Patient has 1 sister with no major medical problems. Daughter(s) Family Medical History: Seizure Disorder Additional Family Medical History / Comment(s): Patient has 2 daughters and her youngest daughter has history of seizure disorder. Patient has one son with no major medical problems. General Exam General appearance: alert, in no apparent distress Head exam: Present: atraumatic, normocephalic Eye exam: Present: normal appearance. Absent: scleral icterus, conjunctival injection ENT exam: Present: normal oropharynx Neck exam: Present: normal inspection Respiratory exam: Present: normal lung sounds bilaterally. Absent: respiratory distress, wheezes, rales, rhonchi, stridor, accessory muscle use Cardiovascular Exam: Present: regular rate, normal rhythm, normal heart sounds. Absent: systolic murmur, diastolic murmur, rubs, gallop GI/Abdominal exam: Present: soft. Absent: distended, tenderness, guarding, rebound, rigid, mass Extremities exam: Present: normal inspection, normal capillary refill. Absent: pedal edema, calf tenderness Back exam: Present: normal inspection. Absent: CVA tenderness (R), CVA tenderness (L) Neurological exam: Present: alert Skin exam: Present: warm, dry, intact, normal color. Absent: rash Course Vital Signs 03/05/25 03/05/25 03/05/25 18:38 18:43 22:52 Temperature 98.9 F Pulse Rate 93 91 Respiratory 16 16 Rate Blood Pressure 132/96 138/93 O2 Sat by Pulse 98 97 Oximetry EKG Findings - EKG Results: EKG: interpreted by [facility], sinus rhythm, normal QRS - Blocks, [place], Hypertrophy, ST Abn: QRS axis and voltage: left axis deviation (-30 to -90) (Borderline) Repolarization changes or abnormalities: nonspecific abnormality, ST segment, and/or T wave Medical Decision Making - Lab Data Result diagrams: 03/05/25 20:23 03/05/25 20:23 Lab Results 03/05/25 03/05/25 03/05/25 Range/Units 20:23 20:23 20:23 WBC 6.89 (4.50-10.00) 10*3/uL RBC 6.39 H (4.10-5.20) 10*6/uL Hgb 15.6 H (12.0-15.0) g/dL Hct 49.3 H (37.2-46.3) % MCV 77.2 L (80.0-97.0) fL MCH 24.4 L (27.0-32.0) pg MCHC 31.6 L (32.0-37.0) g/dL Plt Count 205 (140-440) 10*3/uL MPV 9.1 L (9.5-12.2) fL Immature Gran % (Auto) 0.1 % Neutrophils % 75.1 % Lymphocytes % 15.8 % Monocytes % 6.1 % Eosinophils % 1.9 % Basophils % 1.0 % Immature Gran # 0.01 (0.00-0.04) 10*3/uL Neutrophils # 5.17 (1.80-7.70) 10*3/uL Lymphocytes # 1.09 (0.90-5.00) 10*3/uL Monocytes # 0.42 (0.20-1.00) 10*3/uL Eosinophils # 0.13 (0.04-0.35) 10*3/uL Basophils # 0.07 (0.00-0.10) 10*3/uL Immature Plt Fraction 1.6 (1.1-6.1) % Sodium 133 L (137-145) mmol/L Potassium 4.1 (3.5-5.1) mmol/L Chloride 96 L (98-107) mmol/L Carbon Dioxide 25 (22-30) mmol/L Anion Gap 12 mmol/L BUN 21 H (7-17) mg/dL Creatinine 0.74 (0.52-1.04) mg/dL Est GFR (CKD-EPI)AfAm >90 (>60 ml/min/1.73 sqM) Est GFR (CKD-EPI)NonAf >90 (>60 ml/min/1.73 sqM) Glucose 82 (74-99) mg/dL Plasma Lactic Acid Carlos (0.7-2.0) mmol/L Calcium 10.4 H (8.4-10.2) mg/dL Magnesium 1.7 (1.6-2.3) mg/dL Total Bilirubin 0.8 (0.2-1.3) mg/dL AST 43 H (14-36) U/L ALT 26 (4-34) U/L Alkaline Phosphatase 201 H (38-126) U/L Troponin I 0.031 (0.000-0.034) ng/mL Total Protein 6.6 (6.3-8.2) g/dL Albumin 3.4 L (3.5-5.0) g/dL Acetone, Qual Positive (Negative) 03/05/25 Range/Units 20:23 WBC (4.50-10.00) 10*3/uL RBC (4.10-5.20) 10*6/uL Hgb (12.0-15.0) g/dL Hct (37.2-46.3) % MCV (80.0-97.0) fL MCH (27.0-32.0) pg MCHC (32.0-37.0) g/dL Plt Count (140-440) 10*3/uL MPV (9.5-12.2) fL Immature Gran % (Auto) % Neutrophils % % Lymphocytes % % Monocytes % % Eosinophils % % Basophils % % Immature Gran # (0.00-0.04) 10*3/uL Neutrophils # (1.80-7.70) 10*3/uL Lymphocytes # (0.90-5.00) 10*3/uL Monocytes # (0.20-1.00) 10*3/uL Eosinophils # (0.04-0.35) 10*3/uL Basophils # (0.00-0.10) 10*3/uL Immature Plt Fraction (1.1-6.1) % Sodium (137-145) mmol/L Potassium (3.5-5.1) mmol/L Chloride (98-107) mmol/L Carbon Dioxide (22-30) mmol/L Anion Gap mmol/L BUN (7-17) mg/dL Creatinine (0.52-1.04) mg/dL Est GFR (CKD-EPI)AfAm (>60 ml/min/1.73 sqM) Est GFR (CKD-EPI)NonAf (>60 ml/min/1.73 sqM) Glucose (74-99) mg/dL Plasma Lactic Acid Carlos 0.9 (0.7-2.0) mmol/L Calcium (8.4-10.2) mg/dL Magnesium (1.6-2.3) mg/dL Total Bilirubin (0.2-1.3) mg/dL AST (14-36) U/L ALT (4-34) U/L Alkaline Phosphatase (38-126) U/L Troponin I (0.000-0.034) ng/mL Total Protein (6.3-8.2) g/dL Albumin (3.5-5.0) g/dL Acetone, Qual (Negative) Disposition Referrals: Bee Olguin III, MD [Primary Care Provider] - 1-2 days
[2025-03-05 20:45] LABS: Basophils # (A) 0.07 10*3/uL (0.00-0.10); Eosinophils # (A) 0.13 10*3/uL (0.04-0.35); Eosinophils % (A) 1.9 %; HCT 49.3 % (37.2-46.3); HGB 15.6 g/dL (12.0-15.0); Immature Platelet Fraction 1.6 % (1.1-6.1); Lymphocytes # (A) 1.09 10*3/uL (0.90-5.00); Lymphocytes % (A) 15.8 %; MCH 24.4 pg (27.0-32.0); MCHC 31.6 g/dL (32.0-37.0); MCV 77.2 fL (80.0-97.0); Mean Platelet Volume 9.1 fL (9.5-12.2); Monocytes # (A) 0.42 10*3/uL (0.20-1.00); Monocytes % (A) 6.1 %; Neutrophils # (A) 5.17 10*3/uL (1.80-7.70); Neutrophils % (A) 75.1 %; Platelet Count 205 10*3/uL (140-440); RBC 6.39 10*6/uL (4.10-5.20); RDW 20.2 % (11.5-14.5); WBC 6.89 10*3/uL (4.50-10.00)
[2025-03-05 20:49] LABS: ALT 26 U/L (4-34); AST 43 U/L (14-36); African American GFR (CKD) >90 (>60 ml/min/1.73 sqM); Albumin 3.4 g/dL (3.5-5.0); Alkaline Phosphatase 201 U/L (38-126); Anion Gap 12 mmol/L; Blood Urea Nitrogen 21 mg/dL (7-17); Calcium 10.4 mg/dL (8.4-10.2); Carbon Dioxide 25 mmol/L (22-30); Chloride 96 mmol/L (98-107); Glucose 82 mg/dL (74-99); Magnesium 1.7 mg/dL (1.6-2.3); Non-African American GFR(CKD) >90 (>60 ml/min/1.73 sqM); Potassium 4.1 mmol/L (3.5-5.1); Sodium 133 mmol/L (137-145); Total Bilirubin 0.8 mg/dL (0.2-1.3); Total Protein 6.6 g/dL (6.3-8.2)
[2025-03-05] MEDS: SODIUM CHLORIDE 0.9% 500 ML 500 ML IV STA (22:48)
[2025-03-05] MEDS: METOCLOPRAMIDE 5 MG/ML 2 ML VIAL IVP STA (22:49)
[2025-03-05] MEDS: HYDROmorphone 0.5 MG/0.5 ML SYRINGE IVP STA ×2 (22:52→23:50)
[2025-03-05] MEDS ORDERED: NITROGLYCERIN SL TABS 0.4 MG TAB SUBLINGUAL PRN (23:06)
[2025-03-05] MEDS ORDERED: METOCLOPRAMIDE 5 MG/ML 2 ML VIAL IVP PRN (23:20)
[2025-03-05] MEDS: SODIUM CHLORIDE 0.9% 1,000 ML IV STA (23:48)
[2025-03-06] MEDS: HYDROmorphone 0.5 MG/0.5 ML SYRINGE IVP PRN (01:53)
[2025-03-06] MEDS: ONDANSETRON 4 MG/2 ML VIAL IVP PRN (01:53)
[2025-03-06] MEDS: ASPIRIN 325 MG TAB PO SCH (08:29)
[2025-03-06] MEDS ORDERED: DEXTROSE 50% SYRINGE 50 ML IVP PRN (08:39)
[2025-03-06] MEDS: ASPIRIN 81 MG PO SCH (08:51)
[2025-03-06 09:00] LABS: Glucose,Whole Blood 65 mg/dL (70-110)
[2025-03-06] MEDS: DEXTROSE 50% SYRINGE 50 ML IVP PRN (09:02)
[2025-03-06 09:22] LABS: African American GFR (CKD) >90 (>60 ml/min/1.73 sqM); Anion Gap 9 mmol/L; Blood Urea Nitrogen 17 mg/dL (7-17); Calcium 9.5 mg/dL (8.4-10.2); Carbon Dioxide 24 mmol/L (22-30); Chloride 100 mmol/L (98-107); Glucose 69 mg/dL (74-99); Non-African American GFR(CKD) >90 (>60 ml/min/1.73 sqM); Potassium 3.9 mmol/L (3.5-5.1); Sodium 133 mmol/L (137-145)
[2025-03-06 09:47] LABS: Glucose,Whole Blood 112 mg/dL (70-110)
[2025-03-06 10:10] LABS: Chol/HDL Ratio 3.91 Ratio; LDL Cholesterol,Calculated 157.6 mg/dL (0.0-131.0)
[2025-03-06] MEDS: APIXABAN 5 MG TAB PO SCH (10:31)
[2025-03-06] MEDS: levETIRAcetam 500 MG TAB PO SCH (10:32)
[2025-03-06] MEDS: METOCLOPRAMIDE 10 MG TAB PO SCH (10:32)
[2025-03-06] MEDS: SACUBITRIL/VALSARTAN 24 MG-26 MG TABLET PO SCH (10:32)
[2025-03-06] MEDS: DAPAGLIFLOZIN PROPANEDIOL 10 MG TABLET PO SCH (10:32)
[2025-03-06] MEDS: SPIRONOLACTONE 25 MG TAB PO SCH (10:32)
[2025-03-06] MEDS: PANTOPRAZOLE 40 MG TABLET PO SCH (10:32)
[2025-03-06] MEDS: PREGABALIN 50 MG CAP PO SCH (10:32)
[2025-03-06] MEDS: CLOPIDOGREL 75 MG TAB PO SCH (10:32)
--- NOTE | 2025-03-06 11:09 | P.HPIM ---
History of Present Illness H&P Date: 03/06/25 Patient is a 44-year-old female with diabetes (retinopathy, neuropathy, gastroparesis), ischemic cardiomyopathy (EF 20 to 25%), atrial fibrillation (on Eliquis), CAD with stent placement of proximal and mid LAD 02/[address] Piedra, migraines, nephrolithiasis (s/p lithotripsy), asthma, seizure disorder, anxiety, history of CVA/TIA. She is here for evaluation of chest pain. Patient reported that while at rest, she began to have intermittent substernal chest pressure that radiating to her back that is worse with movement, improved with rest. She is still having some chest pain on evaluation. She denied shortness of breath, palpitations, syncope, sweats, focal weakness, changes in vision, changes in speech. She has persistent nausea controlled with medications had vomiting the morning of admission. On admission: Vitals: Temp 98.9 F, CO 93, RR 16, BP 132/96, O2 saturation 98% on room air Labs: WBC 6.8, hemoglobin 15.6, platelet count 205,000, sodium 133, potassium 4.1, chloride 96, bicarb 25, BUN 21, creatinine 0.74, glucose 82, calcium 10.4, magnesium 1.7. Liver enzymes show AST 43 alk phos 201. Troponins peaked at 0.02-0.03. Acetone positive. Imaging: EKG on admission showed sinus rhythm with a rate of 92 left axis deviation, no ST-T changes, QTc 401 MS. Second EKG independently interpreted shows sinus rhythm with a rate of 89 bpm, right axis deviation, no ST-T changes, inverted T waves in lead II, QTc 433 MS. ED documentation reviewed. Review of systems: Pertinent positives and negatives as discussed in HPI, a complete review of systems was performed and all other systems are negative. Physical examination: Vital signs reviewed General: non toxic, no distress, older than stated age, frail and thin appearing, on room air Derm: no unusual rashes/lesions, warm Head: atraumatic, normocephalic, symmetric Eyes: EOMI, anicteric sclera, pupils equal round reactive to light ENT: Nose and ears atraumatic Neck: No cervical lymphadenopathy, trachea midline, supple Mouth: no lip lesion, mucus membranes moist Cardiovascular: S1S2 reg, no murmur Lungs: CTA bilateral, no rhonchi, no rales, no accessory muscle use Abdominal: soft, nondistended, nontender to palpation, no guarding Ext: muscle strength 5 out of 5 in all 4 extremities grossly, no gross muscle atrophy, no contractures, positive dorsalis pedis pulse bilateral, no edema Neuro: CN II-XI grossly intact, no gross focal neuro deficits Psych: Alert and oriented x 3, appropriate affect and mood Assessment/Plan: The patient is admitted with an anticipated less than 2 midnight stay for evaluation of chest pain Active: #Chest pain, r/o ACS #History of ischemic cardiomyopathy (EF 20 to 25% in January 2025) Cardiac monitoring Supplemental oxygen as needed Heart healthy diet Trend troponin. Troponins have peaked EKG as needed Given aspirin 325 mg once in the ED Continue with aspirin 81 mg daily Continue lipitor 40 mg daily Continue with home Farxiga, Aldactone, and Entresto. Hold Bumex for now Cardiology consulted #Gastroparesis secondary to diabetes #Diabetes mellitus complicated with neuropathy and retinopathy Hemoglobin A1c 14.2 in 02/25/2025 Glucose Accu-Cheks ACHS Initiate Insulin sliding scale ACHS Lantus 20 units nightly Continue Zofran IV and Reglan IV as needed. Transition to oral meds once improved control IV fluids 0.9 NS bolus 1.5L given. Continue with 75cc/hr. Judicous use due to HFrEF Monitor for hypoglycemia Continue with pain control with [place] 10 p.o. as needed Chronic Conditions: #Asthma #Seizure disorder #History of CVA/TIA #Anxiety #GERD #Paroxysmal atrial fibrillation Patient is on home Eliquis and clopidogrel and aspirin. Per cardiology, resume Eliquis and clopidogrel on admission Continue with home Ventolin as needed, and Keppra DVT ppx: Eliquis 5 mg p.o. twice daily GI ppx: Protonix IV daily CODE STATUS: Full Discussed with: patient Anticipated discharge place: Home Nicole West MD PGY-1 Internal Medicine Dictation was produced using [employer] dictation software. please excuse any grammatical, word or spelling errors. Past Medical History Past Medical History: Asthma, Heart Failure, CVA/TIA, Diabetes Mellitus, Deep Vein Thrombosis (DVT), GI Bleed, Pneumonia, Seizure Disorder Additional Past Medical History / Comment(s): bilateral pleural effusion, 09/2024 bilateral hip and ankle bursitis, 3 discs in lower back deteroitrating and 2 bulging. CVA with vision impairment. DVT bilateral legs. History of Any Multi-Drug Resistant Organisms: None Reported, MRSA Date of last positivie culture/infection: 2011 MDRO Source:: Lungs Past Surgical History: Section, Cholecystectomy, Heart Catheterization With Stent, Tubal Ligation Additional Past Surgical History / Comment(s): Colonoscopies, right groin mole remove, kidney stones surgically removed, bilateral cataracts removed, glaucoma surgery, bilateral retinal surgery for bleeding, bilateral thoracentesis, Heart Cath with 2 stents Past Anesthesia/Blood Transfusion Reactions: No Reported Reaction Date of Last Stent Placement:: 02/19/25 Past Psychological History: Anxiety Smoking Status: Former smoker Past Alcohol Use History: None Reported Past Drug Use History: None Reported - Past Family History Father Family Medical History: Cancer, Diabetes Mellitus Additional Family Medical History / Comment(s): COLON CANCER, MELANOMA ON HIS CHEST AND HE ALSO HAS BENIGN BRAIN TUMORS X2, pancreatic cancer. Mother Family Medical History: Cancer, Diabetes Mellitus, Dialysis, Myocardial Infarction ([place]) Additional Family Medical History / Comment(s): MELANOMA THAT METASTASIZED TO THE BRAIN- AT AGE 49. Mother had an IN at age 34 with angioplasty at age 36 yrs and another IN, and history of diabetes. Patient has many aunts, uncles and nieces with diabetes on her mother's side. Brother(s) Family Medical History: Cancer Additional Family Medical History / Comment(s): Patient has one half-brother with kidney stones, full brother with no major medical problems. Patient has 1 sister with no major medical problems. Daughter(s) Family Medical History: Seizure Disorder Additional Family Medical History / Comment(s): Patient has 2 daughters and her youngest daughter has history of seizure disorder. Patient has one son with no major medical problems. Medications and Allergies Home Medications Medication Instructions Recorded Confirmed Type HYDROcodone/APAP 10-325MG [[place] 1 tab PO TID PRN 01/14/18 03/06/25 History 10-325] levETIRAcetam [Keppra] 500 mg PO DAILY 08/29/23 03/06/25 History Albuterol Nebulized [Ventolin 2.5 mg INHALATION RT-QID PRN 11/04/24 03/06/25 History Nebulized] Apixaban [Eliquis] 5 mg PO BID 11/04/24 03/06/25 History Budesonide/Formoterol Fumarate 2 puff INHALATION RT-DAILY 11/04/24 03/06/25 History [Symbicort 160-4.5 Mcg Inhaler] Pantoprazole [Protonix] 40 mg PO DAILY 12/21/24 03/06/25 History Naproxen [Naprosyn] 500 mg PO BID PRN 12/31/24 03/06/25 History Aspirin 81 mg PO DAILY #30 tab 01/29/25 03/06/25 Rx Dapagliflozin Propanediol [Farxiga] 10 mg PO DAILY 90 Days #90 tab 02/20/25 03/06/25 Rx Metoprolol Succinate (ER) [Toprol 50 mg PO DAILY 90 Days #90 tab 02/20/25 03/06/25 Rx XL] Spironolactone [Aldactone] 25 mg PO DAILY #30 tab 02/20/25 03/06/25 Rx Sacubitril/Valsartan [Entresto 24 1 tab PO BID 02/24/25 03/06/25 History mg-26 mg Tablet] Metoclopramide HCl [Reglan] 5 mg PO TID PRN #20 tab 02/27/25 03/06/25 Rx Ondansetron Odt [Zofran ODT] 4 mg PO TID PRN #20 tab 02/27/25 03/06/25 Rx Atorvastatin [Lipitor] 40 mg PO DIRECTED 03/01/25 03/06/25 History Bumetanide [BUMEX] 1 mg PO DIRECTED 03/01/25 03/06/25 History Clopidogrel [Plavix] 75 mg PO DAILY 03/01/25 03/06/25 History Insulin Glargine,Hum.rec.anlog 20 units SQ DAILY 03/01/25 03/06/25 History [Lantus Solostar Pen] Pregabalin [Lyrica] 50 mg PO DIRECTED 03/06/25 03/06/25 History Allergies Allergy/AdvReac Type Severity Reaction Status Date / Time Penicillins Allergy Nausea & Verified 03/06/25 11:27 Vomiting, rash codeine AdvReac Nausea & Verified 03/06/25 11:27 Vomiting morphine AdvReac Nausea & Verified 03/06/25 11:27 Vomiting Sulfa (Sulfonamide AdvReac Nausea & Verified 03/06/25 11:27 Antibiotics) Vomiting, rash tramadol AdvReac Per Verified 03/06/25 11:27 patient, cannot take with Keppra Physical Exam Vitals: Vital Signs Temp Pulse Resp BP Pulse Ox 03/06/25 07:15 86 18 156/78 96 03/06/25 05:18 88 18 155/98 94 L 03/05/25 23:42 98.2 F 87 16 153/95 97 03/05/25 22:52 91 16 138/93 97 03/05/25 18:43 93 16 132/96 98 03/05/25 18:38 98.9 F Intake and Output 03/05/25 03/06/25 03/06/25 22:59 06:59 14:59 Other: Weight 58.06 kg Results CBC & Chem 7: 03/05/25 20:23 03/06/25 08:59 Labs: Abnormal Lab Results - Last 24 Hours (Table) 03/05/25 03/05/25 Range/Units 20:23 20:23 RBC 6.39 H (4.10-5.20) 10*6/uL Hgb 15.6 H (12.0-15.0) g/dL Hct 49.3 H (37.2-46.3) % MCV 77.2 L (80.0-97.0) fL MCH 24.4 L (27.0-32.0) pg MCHC 31.6 L (32.0-37.0) g/dL MPV 9.1 L (9.5-12.2) fL Sodium 133 L (137-145) mmol/L Chloride 96 L (98-107) mmol/L BUN 21 H (7-17) mg/dL Calcium 10.4 H (8.4-10.2) mg/dL AST 43 H (14-36) U/L Alkaline Phosphatase 201 H (38-126) U/L Albumin 3.4 L (3.5-5.0) g/dL
--- NOTE | 2025-03-06 11:25 | P.CRDCN ---
History of Present Illness Consult date: 03/06/25 History of present illness: HISTORY OF PRESENTING ILLNESS: 44-year-old female with past medical history of CAD cardiomyopathy hypertension type 2 diabetes dyslipidemia gastroparesis and CVA. She recently had PCI to her proximal and mid LAD with Impella support which went well. Since then she has felt better in terms of her congestive heart failure and has lost significant water weight. She has also had poor oral intake from her gastroparesis and has had previous hospital admission now a second hospital admission because of abdominal discomfort gastroparesis poor oral intake. On current presentation her troponins are not elevated, EKG does not show any new changes concerning of acute ischemia EKG shows sinus rhythm with nonspecific ST changes in lateral leads which is unchanged from prior exam. REVIEW OF SYSTEMS: 14 point review of system is negative except what is mentioned above in HPI. PHYSICAL EXAMINATION: Neck: Brisk carotid upstroke, no jugular venous distention. Lungs: Clear to auscultation. Heart: Regular rate and rhythm, S1-S2, , no murmur or rub. Abdomen: Soft nontender, positive bowel sounds. Extremities: No edema, intact distal pulses. Neuro: Alert, oritented, no focal deficits. Detailed neuro exam was not performed. ASSESSMENT: # Nausea and vomiting from diabetic gastroparesis. Has been rule out of ACS # CAD status post recent PCI to proximal and mid LAD with Impella support 02/19/2025 # Residual CAD 60% tubular stenosis proximal RCA, 50% diffuse mid and distal LCx. # Ischemic cardiomyopathy with a EF of 20 to 25%, currently euvolemic, NYHA class III. # History of DVT on Eliquis # Type 2 diabetes # Dyslipidemia # History of CVA x 2 PLAN: Continue aspirin Plavix Lipitor. Continue Eliquis Stop Farxiga as patient's oral intake is low. Stop diuretics as she does not appear volume overloaded and is on spray drier side Continue Entresto and Aldactone at home dose refrain from increasing antihypertensives at this time as patient's blood pressure elevation is because of her discomfort reglan scheduled for gastroparesis. Keep her on Protonix for abdominal mucosal protection from triple therapy Patient stable from cardiovascular standpoint. She does have residual disease in RCA which needs IFR assessment eventually. This can be done as an outpatient. However if patient is staying in hospital until Saturday, plan for IFR assessment of RCA on Saturday with Dr. Piedra GI evaluation for abdominal pain Clayton Silverio MD, FAC, RPVI Thank you for allowing [facility] to participate in this patient's care. Feel free to reach out in case of any followup questions. Past Medical History Past Medical History: Asthma, Heart Failure, CVA/TIA, Diabetes Mellitus, Deep Vein Thrombosis (DVT), GI Bleed, Pneumonia, Seizure Disorder Additional Past Medical History / Comment(s): bilateral pleural effusion, 09/2024 bilateral hip and ankle bursitis, 3 discs in lower back deteroitrating and 2 bulging. CVA with vision impairment. DVT bilateral legs. History of Any Multi-Drug Resistant Organisms: None Reported, MRSA Date of last positivie culture/infection: 2011 MDRO Source:: Lungs Past Surgical History: Section, Cholecystectomy, Heart Catheterization With Stent, Tubal Ligation Additional Past Surgical History / Comment(s): Colonoscopies, right groin mole remove, kidney stones surgically removed, bilateral cataracts removed, glaucoma surgery, bilateral retinal surgery for bleeding, bilateral thoracentesis, Heart Cath with 2 stents Past Anesthesia/Blood Transfusion Reactions: No Reported Reaction Date of Last Stent Placement:: 02/19/25 Past Psychological History: Anxiety Smoking Status: Former smoker Past Alcohol Use History: None Reported Past Drug Use History: None Reported - Past Family History Father Family Medical History: Cancer, Diabetes Mellitus Additional Family Medical History / Comment(s): COLON CANCER, MELANOMA ON HIS CHEST AND HE ALSO HAS BENIGN BRAIN TUMORS X2, pancreatic cancer. Mother Family Medical History: Cancer, Diabetes Mellitus, Dialysis, Myocardial Infarction (HI) Additional Family Medical History / Comment(s): MELANOMA THAT METASTASIZED TO THE BRAIN- AT AGE 49. Mother had an HI at age 34 with angioplasty at age 36 yrs and another HI, and history of diabetes. Patient has many aunts, uncles and nieces with diabetes on her mother's side. Brother(s) Family Medical History: Cancer Additional Family Medical History / Comment(s): Patient has one half-brother with kidney stones, full brother with no major medical problems. Patient has 1 sister with no major medical problems. Daughter(s) Family Medical History: Seizure Disorder Additional Family Medical History / Comment(s): Patient has 2 daughters and her youngest daughter has history of seizure disorder. Patient has one son with no major medical problems. Medications and Allergies Home Medications Medication Instructions Recorded Confirmed Type HYDROcodone/APAP 10-325MG [[place] 1 tab PO TID PRN 01/14/18 03/01/25 History 10-325] levETIRAcetam [Keppra] 500 mg PO DAILY 08/29/23 03/01/25 History Albuterol Nebulized [Ventolin 2.5 mg INHALATION RT-QID PRN 11/04/24 03/01/25 History Nebulized] Apixaban [Eliquis] 5 mg PO BID 11/04/24 03/01/25 History Budesonide/Formoterol Fumarate 2 puff INHALATION RT-DAILY 11/04/24 03/01/25 History [Symbicort 160-4.5 Mcg Inhaler] Pantoprazole [Protonix] 40 mg PO DAILY 12/21/24 03/01/25 History Naproxen [Naprosyn] 500 mg PO BID PRN 12/31/24 03/01/25 History Aspirin 81 mg PO DAILY #30 tab 01/29/25 03/01/25 Rx Dapagliflozin Propanediol [Farxiga] 10 mg PO DAILY 90 Days #90 tab 02/20/25 03/01/25 Rx Metoprolol Succinate (ER) [Toprol 50 mg PO DAILY 90 Days #90 tab 02/20/25 03/01/25 Rx XL] Spironolactone [Aldactone] 25 mg PO DAILY #30 tab 02/20/25 03/01/25 Rx Sacubitril/Valsartan [Entresto 24 1 tab PO BID 02/24/25 03/01/25 History mg-26 mg Tablet] Metoclopramide HCl [Reglan] 5 mg PO TID PRN #20 tab 02/27/25 03/01/25 Rx Ondansetron Odt [Zofran ODT] 4 mg PO TID PRN #20 tab 02/27/25 03/01/25 Rx Atorvastatin [Lipitor] 40 mg PO DIRECTED 03/01/25 03/01/25 History Bumetanide [BUMEX] 1 mg PO DIRECTED 03/01/25 03/01/25 History Clopidogrel [Plavix] 75 mg PO DAILY 03/01/25 03/01/25 History Insulin Glargine,Hum.rec.anlog 20 units SQ DAILY 03/01/25 03/01/25 History [Lantus Solostar Pen] Pregabalin [Lyrica] 50 mg PO BID #60 cap 03/04/25 Rx Allergies Allergy/AdvReac Type Severity Reaction Status Date / Time Penicillins Allergy Nausea & Verified 03/05/25 18:43 Vomiting, rash codeine AdvReac Nausea & Verified 03/05/25 18:43 Vomiting morphine AdvReac Nausea & Verified 03/05/25 18:43 Vomiting Sulfa (Sulfonamide AdvReac Nausea & Verified 03/05/25 18:43 Antibiotics) Vomiting, rash tramadol AdvReac Per Verified 03/05/25 18:43 patient, cannot take with Keppra Physical Exam Vitals: Vital Signs Temp Pulse Pulse Resp BP BP Pulse Ox 03/06/25 10:55 98.2 F 93 17 166/99 99 03/06/25 10:45 78 18 122/76 98 03/06/25 07:15 86 18 156/78 96 03/06/25 05:18 88 18 155/98 94 L 03/05/25 23:42 98.2 F 87 16 153/95 97 03/05/25 22:52 91 16 138/93 97 03/05/25 18:43 93 16 132/96 98 03/05/25 18:38 98.9 F Intake and Output 03/05/25 03/06/25 03/06/25 22:59 06:59 14:59 Other: Weight 58.06 kg 58.06 kg Results 03/05/25 20:23 03/06/25 08:59 Cardiac Enzymes 03/05/25 03/05/25 03/05/25 Range/Units 20:23 20:23 23:10 AST 43 H (14-36) U/L Troponin I 0.031 0.031 (0.000-0.034) ng/mL 03/06/25 Range/Units 02:25 AST (14-36) U/L Troponin I 0.023 (0.000-0.034) ng/mL Lipids 03/06/25 Range/Units 02:25 Triglycerides 146.00 (0.00-149.00) mg/dL Cholesterol 251.00 H (0.00-200.00) mg/dL HDL Cholesterol 64.20 H (40.00-60.00) mg/dL Cholesterol/HDL Ratio 3.91 Ratio CBC 03/05/25 Range/Units 20:23 WBC 6.89 (4.50-10.00) 10*3/uL RBC 6.39 H (4.10-5.20) 10*6/uL Hgb 15.6 H (12.0-15.0) g/dL Hct 49.3 H (37.2-46.3) % Plt Count 205 (140-440) 10*3/uL Comprehensive Metabolic Panel 03/05/25 03/06/25 Range/Units 20:23 08:59 Sodium 133 L 133 L (137-145) mmol/L Potassium 4.1 3.9 (3.5-5.1) mmol/L Chloride 96 L 100 (98-107) mmol/L Carbon Dioxide 25 24 (22-30) mmol/L BUN 21 H 17 (7-17) mg/dL Creatinine 0.74 0.74 (0.52-1.04) mg/dL Glucose 82 69 L (74-99) mg/dL Calcium 10.4 H 9.5 (8.4-10.2) mg/dL AST 43 H (14-36) U/L ALT 26 (4-34) U/L Alkaline Phosphatase 201 H (38-126) U/L Total Protein 6.6 (6.3-8.2) g/dL Albumin 3.4 L (3.5-5.0) g/dL Current Medications Generic Name Dose Route Start Last Admin Trade Name Freq PRN Reason Stop Dose Admin Hydrocodone Bitart/Acetaminophen 1 each 03/06/25 08:31 Hydrocodone/Apap 10-325mg 1 Each Tab PO TID PRN Pain Albuterol Sulfate 2.5 mg 03/06/25 08:31 Albuterol Nebulized 2.5 Mg/3 Ml INHALATION RT-QID PRN Shortness Of Breath Apixaban 5 mg 03/06/25 09:00 03/06/25 10:31 Apixaban 5 Mg Tab PO Not Given BID [facility] Protocol Aspirin 81 mg 03/06/25 09:00 03/06/25 08:51 Aspirin 81 Mg PO Not Given DAILY [facility] Atorvastatin Calcium 40 mg 03/06/25 21:00 Atorvastatin 40 Mg Tab PO HS [facility] Clopidogrel Bisulfate 75 mg 03/06/25 09:00 03/06/25 10:32 Clopidogrel 75 Mg Tab PO Not Given DAILY SUSAN Dextrose/Water 25 ml 03/06/25 08:39 03/06/25 09:02 Dextrose 50% Syringe 50 Ml IVP 25 ml PER PROTOCOL PRN Administration Hypoglycemia Protocol Dextrose/Water 50 ml 03/06/25 08:39 Dextrose 50% Syringe 50 Ml IVP PER PROTOCOL PRN Hypoglycemia Protocol Sodium Chloride 1,000 mls @ 75 mls/hr 03/05/25 23:20 03/05/25 23:48 Saline 0.9% IV 03/06/25 12:39 75 mls/hr .[id number] STA Administration Insulin Glargine 20 unit 03/06/25 21:00 Insulin Glargine (Lantus) 100 Unit/Ml Syr SQ HS SUSAN Insulin Human Lispro 0 unit 03/06/25 12:30 Insulin Lispro (Humalog) 100 Unit/Ml 10 Ml Vl SQ ACHS SUSAN Protocol Levetiracetam 500 mg 03/06/25 09:00 03/06/25 10:32 Levetiracetam 500 Mg Tab PO Not Given DAILY SUSAN Metoclopramide HCl 10 mg 03/06/25 11:30 Metoclopramide 5 Mg/Ml 2 Ml Vial IVP Q12HR SUSAN Nitroglycerin 0.4 mg 03/05/25 23:06 Nitroglycerin Sl Tabs 0.4 Mg Tab SUBLINGUAL Q5M PRN Chest Pain Ondansetron HCl 4 mg 03/06/25 11:00 Ondansetron 4 Mg/2 Ml Vial IVP Q6HR PRN Nausea And Vomiting Pantoprazole Sodium 40 mg 03/06/25 11:00 Pantoprazole 40 Mg/10 Ml Vial IVP DAILY [facility] Pregabalin 50 mg 03/06/25 09:00 03/06/25 10:32 Pregabalin 50 Mg Cap PO Not Given BID SUSAN Sacubitril/Valsartan 1 each 03/06/25 09:00 03/06/25 10:32 Sacubitril/Valsartan 24 Mg-26 Mg Tablet PO Not Given BID SUSAN Spironolactone 25 mg 03/06/25 09:00 03/06/25 10:32 Spironolactone 25 Mg Tab PO Not Given DAILY SUSAN Intake and Output 03/05/25 03/06/2503/06/25 22:59 06:59 14:59 Other: Weight 58.06 kg 58.06 kg 03/05/25 20:23 03/06/25 08:59
[2025-03-06] MEDS: METOCLOPRAMIDE 5 MG/ML 2 ML VIAL IVP STA (11:34)
[2025-03-06] MEDS: PANTOPRAZOLE 40 MG/10 ML VIAL IVP SCH (11:35)
[2025-03-06 12:06] LABS: Glucose,Whole Blood 100 mg/dL (70-110)
[2025-03-06 12:27] LABS: Amylase 36 U/L (30-110); Lipase 144 U/L (23-300)
[2025-03-06] MEDS: INSULIN LISPRO (HumaLOG) 100 UNIT/ML 10 mL VL SQ SCH (12:44)
[2025-03-06] MEDS ORDERED: PREGABALIN 50 MG CAP PO SCH (13:15)
[2025-03-06] MEDS: MAGNESIUM SULFATE-D5W PMX 1 GM in DEXTROSE/WATER 1 100ML.BAG IVPB ONE (13:20)
[2025-03-06] MEDS: HYDROmorphone 0.5 MG/0.5 ML SYRINGE IVP STA (13:20)
[2025-03-06 17:41] LABS: Glucose,Whole Blood 124 mg/dL (70-110)
[2025-03-06] MEDS: HYDROcodone/APAP 10-325MG 1 EACH TAB PO PRN (18:51)
[2025-03-06 20:26] LABS: Glucose,Whole Blood 195 mg/dL (70-110)
[2025-03-06] MEDS: METOCLOPRAMIDE 5 MG/ML 2 ML VIAL IVP SCH (20:44)
[2025-03-06] MEDS: ATORVASTATIN 40 MG TAB PO SCH (20:44)
[2025-03-06] MEDS: INSULIN GLARGINE (LANTUS) 100 UNIT/ML SYR SQ SCH (20:45)
[2025-03-07] MEDS: ONDANSETRON 4 MG/2 ML VIAL IVP PRN (00:15)
[2025-03-07] MEDS: ALBUTEROL NEBULIZED 2.5 MG/3 ML INHALATION PRN (00:35)
[2025-03-07 05:31] LABS: Glucose,Whole Blood 156 mg/dL (70-110)
[2025-03-07 07:56] VITALS: RESP 18
[2025-03-07 08:51] LABS: African American GFR (CKD) >90 (>60 ml/min/1.73 sqM); Anion Gap 2 mmol/L; Blood Urea Nitrogen 15 mg/dL (7-17); Calcium 8.9 mg/dL (8.4-10.2); Carbon Dioxide 28 mmol/L (22-30); Chloride 101 mmol/L (98-107); Glucose 190 mg/dL (74-99); Non-African American GFR(CKD) >90 (>60 ml/min/1.73 sqM); Potassium 3.2 mmol/L (3.5-5.1); Sodium 131 mmol/L (137-145)
[2025-03-07 12:44] LABS: Glucose,Whole Blood 213 mg/dL (70-110)
[2025-03-07 15:12] VITALS: BP 133/83; PULSE 87; TEMP 98.3
[2025-03-07] MEDS: POTASSIUM CHLORIDE ER 20 MEQ TAB.ER PO STA (15:30)
--- NOTE | 2025-03-07 19:31 | P.PN ---
Subjective Progress Note Date: 03/07/25 HISTORY OF PRESENTING ILLNESS: 44-year-old female with past medical history of CAD cardiomyopathy hypertension type 2 diabetes dyslipidemia gastroparesis and CVA. She recently had PCI to her proximal and mid LAD with Impella support which went well. Since then she has felt better in terms of her congestive heart failure and has lost significant water weight. She has also had poor oral intake from her gastroparesis and has had previous hospital admission now a second hospital admission because of ab dominal discomfort gastroparesis poor oral intake. On current presentation her troponins are not elevated, EKG does not show any new changes concerning of acute ischemia EKG shows sinus rhythm with nonspecific ST changes in lateral leads which is unchanged from prior exam. Progress note 03/07/2025 Seen and examined at bedside this a.m. Her abdominal discomfort has resolved with Reglan scheduled. No chest pain chest pressure, appears euvolemic PHYSICAL EXAMINATION: Neck: Brisk carotid upstroke, no jugular venous distention. Lungs: Clear to auscultation. Heart: Regular rate and rhythm, S1-S2, , no murmur or rub. Abdomen: Soft nontender, positive bowel sounds. Extremities: No edema, intact distal pulses. Neuro: Alert, oritented, no focal deficits. Detailed neuro exam was not performed. ASSESSMENT: # Nausea and vomiting from diabetic gastroparesis. Has been rule out of ACS # CAD status post recent PCI to proximal and mid LAD with Impella support 02/19/2025 # Residual CAD 60% tubular stenosis proximal RCA, 50% diffuse mid and distal LCx. # Ischemic cardiomyopathy with a EF of 20 to 25%, currently euvolemic, NYHA class III. # History of DVT on Eliquis # Type 2 diabetes # Dyslipidemia # History of CVA x 2 PLAN: Resume current cardiac medication Follow-up outpatient with cardiology Okay to be discharged Outpatient IFR assessment of RCA Objective - Vital Signs Vital signs: Vital Signs Temp 98.3 F 03/07/25 14:26 Pulse 87 03/07/25 14:26 Resp 18 03/07/25 14:26 BP 133/83 03/07/25 14:26 Pulse Ox 97 03/07/25 14:26 FiO2 Intake & Output 03/07/25 03/07/25 03/08/25 06:59 18:59 06:59 Other: # Voids 2 1 - Labs CBC & Chem 7: 06/20/25 20:23 03/07/25 07:59 Labs: Abnormal Lab Results - Last 24 Hours (Table) 03/06/25 03/07/25 03/07/25 Range/Units 20:25 05:30 07:59 Sodium 131 L (137-145) mmol/L Potassium 3.2 L (3.5-5.1) mmol/L Glucose 190 H (74-99) mg/dL POC Glucose (mg/dL) 195 H 156 H (70-110) mg/dL 03/07/25 Range/Units 12:43 Sodium (137-145) mmol/L Potassium (3.5-5.1) mmol/L Glucose (74-99) mg/dL POC Glucose (mg/dL) 213 H (70-110) mg/dL
== END 2025-03-07 16:00 | disposition home or self-care (01) ==
LOC: EC 18:33 → 6NMEDSUR 23:09
PROVIDERS: ADMIT Hospitalist; ATTEND Hospitalist
DX: E11.43 Type 2 diabetes mellitus with diabetic autonomic (poly)neuropathy (principal); K31.84 Gastroparesis; F41.9 Anxiety disorder, unspecified; I11.0 Hypertensive heart disease with heart failure; I50.20 Unspecified systolic (congestive) heart failure; I48.0 Paroxysmal atrial fibrillation; K21.9 Gastro-esophageal reflux disease without esophagitis; I25.10 Atherosclerotic heart disease of native coronary artery without angina pectoris; I25.5 Ischemic cardiomyopathy; E78.5 Hyperlipidemia, unspecified; Z86.73 Personal history of transient ischemic attack (TIA), and cerebral infarction without residual deficits; Z86.718 Personal history of other venous thrombosis and embolism; Z87.891 Personal history of nicotine dependence; Z95.5 Presence of coronary angioplasty implant and graft; Z79.899 Other long term (current) drug therapy; Z79.01 Long term (current) use of anticoagulants; Z79.51 Long term (current) use of inhaled steroids; Z79.02 Long term (current) use of antithrombotics/antiplatelets; Z79.4 Long term (current) use of insulin; Z79.82 Long term (current) use of aspirin; Z79.84 Long term (current) use of oral hypoglycemic drugs; Z88.0 Allergy status to penicillin; Z88.2 Allergy status to sulfonamides; Z88.5 Allergy status to narcotic agent; Z88.6 Allergy status to analgesic agent
CPT/HCPCS: 96376 ×4; 96365; 96375 ×2; 96361; 99285; 36415; 94640; 93005 ×2; 80061; 80053; 80048 ×2; 82150; 82009; 83605; 83690; 83735; 84484 ×2; 85025; G0378 ×3; J2765 ×3; J2405 ×3; J3475; J1171 ×2; J2470 ×2

== ENCOUNTER 2025-03-18 11:24 | Observation (INO) | payer OTHER ==
--- NOTE | 2025-03-18 11:29 | ED ---
General Adult HPI - General Stated complaint: Chest Pain Time Seen by Provider: 03/18/25 11:25 Source: patient, RN notes reviewed, old records reviewed - History of Present Illness Initial comments: This is a 44-year-old female with a past medical history significant for cardiac stents and diabetes. Patient comes in today complaining of chest pain. Patient states she has also been vomiting. Patient states she was just released from the hospital few days ago. Patient denies any fever or chills. Patient is also short of breath. Patient denies any radiation of the pain. Patient states she did start vomiting prior to the chest pain. Patient denies any smoking history or marijuana history. - Related Data Home Medications Medication Instructions Recorded Confirmed HYDROcodone/APAP 10-325MG [[place] 1 tab PO TID PRN 01/14/18 03/06/25 10-325] levETIRAcetam [Keppra] 500 mg PO DAILY 08/29/23 03/06/25 Albuterol Nebulized [Ventolin 2.5 mg INHALATION RT-QID PRN 11/04/24 03/06/25 Nebulized] Apixaban [Eliquis] 5 mg PO BID 11/04/24 03/06/25 Budesonide/Formoterol Fumarate 2 puff INHALATION RT-DAILY 11/04/24 03/06/25 [Symbicort 160-4.5 Mcg Inhaler] Pantoprazole [Protonix] 40 mg PO DAILY 12/21/24 03/06/25 Naproxen [Naprosyn] 500 mg PO BID PRN 12/31/24 03/06/25 Sacubitril/Valsartan [Entresto 24 1 tab PO BID 02/24/25 03/06/25 mg-26 mg Tablet] Atorvastatin [Lipitor] 40 mg PO DIRECTED 03/01/25 03/06/25 Clopidogrel [Plavix] 75 mg PO DAILY 03/01/25 03/06/25 Insulin Glargine,Hum.rec.anlog 20 units SQ DAILY 03/01/25 03/06/25 [Lantus Solostar Pen] Pregabalin [Lyrica] 50 mg PO DIRECTED 03/06/25 03/06/25 Previous Rx's Medication Instructions Recorded Aspirin 81 mg PO DAILY #30 tab 01/29/25 Metoprolol Succinate (ER) [Toprol 50 mg PO DAILY 90 Days #90 tab 02/20/25 XL] Spironolactone [Aldactone] 25 mg PO DAILY #30 tab 02/20/25 Metoclopramide HCl [Reglan] 5 mg PO TID PRN #20 tab 02/27/25 Ondansetron Odt [Zofran ODT] 4 mg PO TID PRN #20 tab 02/27/25 Allergies Allergy/AdvReac Type Severity Reaction Status Date / Time Penicillins Allergy Nausea & Verified 03/18/25 11:35 Vomiting, rash codeine AdvReac Nausea & Verified 03/18/25 11:35 Vomiting morphine AdvReac Nausea & Verified 03/18/25 11:35 Vomiting Sulfa (Sulfonamide AdvReac Nausea & Verified 03/18/25 11:35 Antibiotics) Vomiting, rash tramadol AdvReac Per Verified 03/18/25 11:35 patient, cannot take with Keppra Review of Systems ROS Statement: Those systems with pertinent positive or pertinent negative responses have been documented in the HPI. ROS Other: All systems not noted in ROS Statement are negative. Past Medical History Past Medical History: Asthma, Heart Failure, CVA/TIA, Diabetes Mellitus, Deep Vein Thrombosis (DVT), GI Bleed, Pneumonia, Seizure Disorder Additional Past Medical History / Comment(s): bilateral pleural effusion, 09/2024 bilateral hip and ankle bursitis, 3 discs in lower back deteroitrating and 2 bulging. CVA with vision impairment. DVT bilateral legs. History of Any Multi-Drug Resistant Organisms: None Reported, MRSA Date of last positivie culture/infection: 2011 MDRO Source:: Lungs Past Surgical History: Section, Cholecystectomy, Heart Catheterization With Stent, Tubal Ligation Additional Past Surgical History / Comment(s): Colonoscopies, right groin mole remove, kidney stones surgically removed, bilateral cataracts removed, glaucoma surgery, bilateral retinal surgery for bleeding, bilateral thoracentesis, Heart Cath with 2 stents Past Anesthesia/Blood Transfusion Reactions: No Reported Reaction Date of Last Stent Placement:: 02/19/25 Past Psychological History: Anxiety Smoking Status: Former smoker Past Alcohol Use History: None Reported Past Drug Use History: None Reported - Past Family History Father Family Medical History: Cancer, Diabetes Mellitus Additional Family Medical History / Comment(s): COLON CANCER, MELANOMA ON HIS CHEST AND HE ALSO HAS BENIGN BRAIN TUMORS X2, pancreatic cancer. Mother Family Medical History: Cancer, Diabetes Mellitus, Dialysis, Myocardial Infarction (GA) Additional Family Medical History / Comment(s): MELANOMA THAT METASTASIZED TO THE BRAIN- AT AGE 49. Mother had an GA at age 34 with angioplasty at age 36 yrs and another GA, and history of diabetes. Patient has many aunts, uncles and nieces with diabetes on her mother's side. Brother(s) Family Medical History: Cancer Additional Family Medical History / Comment(s): Patient has one half-brother with kidney stones, full brother with no major medical problems. Patient has 1 sister with no major medical problems. Daughter(s) Family Medical History: Seizure Disorder Additional Family Medical History / Comment(s): Patient has 2 daughters and her youngest daughter has history of seizure disorder. Patient has one son with no major medical problems. General Exam - General Exam Comments Initial Comments: GENERAL: Patient is well-developed and well-nourished. Patient is nontoxic and well- hydrated and is in mild distress. ENT: Neck is soft and supple. No significant lymphadenopathy is noted. Oropharynx is clear. Moist mucous membranes. Neck has full range of motion without eliciting any pain. EYES: The sclera were anicteric and conjunctiva were pink and moist. Extraocular movements were intact and pupils were equal round and reactive to light. Eyelids were unremarkable. PULMONARY: Unlabored respirations. Good breath sounds bilaterally. No audible rales rhonchi or wheezing was noted. CARDIOVASCULAR: There is a regular rate and rhythm without any murmurs gallops or rubs. ABDOMEN: Suprapubic abdominal tenderness SKIN: Skin is clear with no lesions or rashes and otherwise unremarkable. NEUROLOGIC: Patient is alert and oriented x3. Cranial nerves II through XII are grossly intact. Motor and sensory are also intact. Normal speech, volume and content. Symmetrical smile. MUSCULOSKELETAL: Normal extremities with adequate strength and full range of motion. No lower extremity swelling or edema. No calf tenderness. LYMPHATICS: No significant lymphadenopathy is noted PSYCHIATRIC: Normal psychiatric evaluation. Course Vital Signs 03/18/25 03/18/25 11:33 13:40 Temperature 98.2 F Pulse Rate 113 H 112 H Respiratory 18 18 Rate Blood Pressure 129/89 152/98 O2 Sat by Pulse 96 96 Oximetry Medical Decision Making - Medical Decision Making EKG is interpreted by myself and EKG shows sinus tachycardia 114 bpm MT 159 QRS is 82 QT interval 347 QTc is 414. Patient's EKG shows no ST segment elevation or depression. Was pt. sent in by a medical professional or institution (EVIE Killian, BILL DISTRIBUTOR, urgent care, hospital, or fpc...) When possible be specific @ -No Did you speak to anyone other than the patient for history (EMS, parent, family, police, friend...)? What history was obtained from this source @ -No Did you review nursing and triage notes (agree or disagree)? Why? @ -I reviewed and agree with nursing and triage notes Were old charts reviewed (outside hosp., previous admission, EMS record, old EKG, old radiological studies, urgent care reports/EKG's, fpc records)? Report findings @ -No Differential Diagnosis? @ -Differential Chest Pain: Stable Angina, Unstable Angina, STEMI, NSTEMI Aortic Dissection, Pneumothorax, Musculoskeletal, Esophageal Spasm GERD, Cholecystitis, Pancreatitis, Zoster, this is not meant to be an all-inclusive list. EKG interpreted by me (3pts min.). @ -As above X-rays interpreted by me (1pt min.). @ -Chest x-ray shows no acute abnormality CT interpreted by me (1pt min.). @ -None done U/S interpreted by me (1pt. min.). @ -None done What testing was considered but not performed or refused? (CT, X-rays, U/S, labs)? Why? @ -None What meds were considered but not given or refused? Why? @ -None Did you discuss the management of the patient with other professionals (professionals i.e. EVIE Killian, BILL DISTRIBUTOR, lab, RT, psych nurse, manager social, glass sander, teacher, court security officer, piano case and bench assembler)? Give summary @ -I spoke with he agreed admit the patient admit the patient reported bitting orders Was smoking cessation discussed for >3mins.? @ -No Was critical care preformed (if so, how long)? @ -No Were there social determinants of health that impacted care today? How? (Homelessness, low income, unemployed, alcoholism, drug addiction, transportation, low edu. Level, literacy, decrease access to med. care, care home, rehab)? @ -No Was there de-escalation of care discussed even if they declined (Discuss DNR or withdrawal of care, Hospice)? DNR status @ -No What co-morbidities impacted this encounter? (DM, HTN, Smoking, COPD, CAD, Cancer, CVA, ARF, Chemo, Hep., AIDS, mental health diagnosis, sleep apnea, morbid obesity)? @ -None Was patient admitted / discharged? Hospital course, mention meds given and route, prescriptions, significant lab abnormalities, going to OR and other pertinent info. @ -Patient with vomiting on arrival patient was given fluids as well as Zofran and feeling better. Patient's sugar was elevated and patient's troponin was normal. Patient will be admitted to and cardiology be consulted Undiagnosed new problem with uncertain prognosis? @ -No Drug Therapy requiring intensive monitoring for toxicity (Heparin, Nitro, Insulin, Cardizem)? @ -No Were any procedures done? @ -No Diagnosis/symptom? @ -Hyperglycemia Acute, or Chronic, or Acute on Chronic? @ -Acute Uncomplicated (without systemic symptoms) or Complicated (systemic symptoms)? @ -Complicated Side effects of treatment? @ -No Exacerbation, Progression, or Severe Exacerbation? @ -No Poses a threat to life or bodily function? How? (Chest pain, [place], GA, pneumonia, PE, COPD, DKA, ARF, appy, cholecystitis, CVA, Diverticulitis, Homicidal, Suicidal, threat to staff... and all critical care pts) @ -No Diagnosis/symptom? @ -Chest pain Acute, or Chronic, or Acute on Chronic? @ -Acute Uncomplicated (without systemic symptoms) or Complicated (systemic symptoms)? @ -Complicated Side effects of treatment? @ -None Exacerbation, Progression, or Severe Exacerbation] @ -No Poses a threat to life or bodily function? @ -Yes this can be an GA and endorgan dysfunction Diagnosis/symptom? @ -Acute vomiting Acute, or Chronic, or Acute on Chronic? @ -Acute Uncomplicated (without systemic symptoms) or Complicated (systemic symptoms)? @ -Uncomplicated Side effects of treatment? @ -None Exacerbation, Progression, or Severe Exacerbation] @ -No Poses a threat to life or bodily function? @ -No - Lab Data Result diagrams: 03/18/25 13:32 03/18/25 13:32 Lab Results 07/03/25 07/03/25 07/03/25 Range/Units 13:32 13:32 13:32 WBC 10.95 H (4.50-10.00) 10*3/uL RBC 5.94 H (4.10-5.20) 10*6/uL Hgb 15.1 H (12.0-15.0) g/dL Hct 46.2 (37.2-46.3) % MCV 77.8 L (80.0-97.0) fL MCH 25.4 L (27.0-32.0) pg MCHC 32.7 (32.0-37.0) g/dL Plt Count 178 (140-440) 10*3/uL MPV 10.3 (9.5-12.2) fL Immature Gran % (Auto) 0.3 % Neutrophils % 93.1 % Lymphocytes % 3.7 % Monocytes % 1.9 % Eosinophils % 0.4 % Basophils % 0.6 % Immature Gran # 0.03 (0.00-0.04) 10*3/uL Neutrophils # 10.20 H (1.80-7.70) 10*3/uL Lymphocytes # 0.40 L (0.90-5.00) 10*3/uL Monocytes # 0.21 (0.20-1.00) 10*3/uL Eosinophils # 0.04 (0.04-0.35) 10*3/uL Basophils # 0.07 (0.00-0.10) 10*3/uL PT 10.0 (10.0-12.5) sec INR 0.9 (<1.2) APTT 22.0 (22.0-30.0) sec Sodium (137-145) mmol/L Potassium (3.5-5.1) mmol/L Chloride (98-107) mmol/L Carbon Dioxide (22-30) mmol/L Anion Gap mmol/L BUN (7-17) mg/dL Creatinine (0.52-1.04) mg/dL Est GFR (CKD-EPI)AfAm (>60 ml/min/1.73 sqM) Est GFR (CKD-EPI)NonAf (>60 ml/min/1.73 sqM) Glucose (74-99) mg/dL Calcium (8.4-10.2) mg/dL Magnesium (1.6-2.3) mg/dL Total Bilirubin (0.2-1.3) mg/dL AST (14-36) U/L ALT (4-34) U/L Alkaline Phosphatase (38-126) U/L Troponin I (0.000-0.034) ng/mL Total Protein (6.3-8.2) g/dL Albumin (3.5-5.0) g/dL Urine Color Colorless Urine Appearance Clear (Clear) Urine pH 6.5 (5.0-8.0) Ur Specific [place] 1.022 (1.001-1.035) Urine Protein 2+ H (Negative) Urine Glucose (UA) 4+ H (Negative) Urine Ketones Trace H (Negative) Urine Blood Moderate H (Negative) Urine Nitrite Negative (Negative) Urine Bilirubin Negative (Negative) Urine Urobilinogen <2.0 (<2.0) mg/dL Ur Leukocyte Esterase Negative (Negative) Urine RBC 23 H (0-5) /hpf Urine WBC 7 H (0-5) /hpf Ur Squamous Epith Cells 1 (0-4) /hpf Urine Yeast (Budding) Occasional H (None) /hpf 03/18/25 03/18/25 Range/Units 13:32 13:32 WBC (4.50-10.00) 10*3/uL RBC (4.10-5.20) 10*6/uL Hgb (12.0-15.0) g/dL Hct (37.2-46.3) % MCV (80.0-97.0) fL MCH (27.0-32.0) pg MCHC (32.0-37.0) g/dL Plt Count (140-440) 10*3/uL MPV (9.5-12.2) fL Immature Gran % (Auto) % Neutrophils % % Lymphocytes % % Monocytes % % Eosinophils % % Basophils % % Immature Gran # (0.00-0.04) 10*3/uL Neutrophils # (1.80-7.70) 10*3/uL Lymphocytes # (0.90-5.00) 10*3/uL Monocytes # (0.20-1.00) 10*3/uL Eosinophils # (0.04-0.35) 10*3/uL Basophils # (0.00-0.10) 10*3/uL PT (10.0-12.5) sec INR (<1.2) APTT (22.0-30.0) sec Sodium 135 L (137-145) mmol/L Potassium 4.9 (3.5-5.1) mmol/L Chloride 94 L (98-107) mmol/L Carbon Dioxide 30 (22-30) mmol/L Anion Gap 11 mmol/L BUN 40 H (7-17) mg/dL Creatinine 0.80 (0.52-1.04) mg/dL Est GFR (CKD-EPI)AfAm >90 (>60 ml/min/1.73 sqM) Est GFR (CKD-EPI)NonAf 89 (>60 ml/min/1.73 sqM) Glucose 435 H (74-99) mg/dL Calcium 10.6 H (8.4-10.2) mg/dL Magnesium 2.4 H (1.6-2.3) mg/dL Total Bilirubin 0.8 (0.2-1.3) mg/dL AST 39 H (14-36) U/L ALT 44 H (4-34) U/L Alkaline Phosphatase 252 H (38-126) U/L Troponin I <0.012 (0.000-0.034) ng/mL Total Protein 7.8 (6.3-8.2) g/dL Albumin 4.2 (3.5-5.0) g/dL Urine Color Urine Appearance (Clear) Urine pH (5.0-8.0) Ur Specific [place] (1.001-1.035) Urine Protein (Negative) Urine Glucose (UA) (Negative) Urine Ketones (Negative) Urine Blood (Negative) Urine Nitrite (Negative) Urine Bilirubin (Negative) Urine Urobilinogen (<2.0) mg/dL Ur Leukocyte Esterase (Negative) Urine RBC (0-5) /hpf Urine WBC (0-5) /hpf Ur Squamous Epith Cells (0-4) /hpf Urine Yeast (Budding) (None) /hpf Disposition Clinical Impression: Acute vomiting, Chest pain, Hyperglycemia Disposition: ADMITTED IP TO THIS HOSP Referrals: Bee Olguin III, MD [Primary Care Provider] - 1-2 days Time of Disposition: 14:31
[2025-03-18] MEDS: SODIUM CHLORIDE 0.9% 1,000 ML IV STA (13:36)
[2025-03-18] MEDS: ONDANSETRON 4 MG/2 ML VIAL IVP STA (13:36)
[2025-03-18 13:44] LABS: Basophils # (A) 0.07 10*3/uL (0.00-0.10); Basophils % (A) 0.6 %; Eosinophils # (A) 0.04 10*3/uL (0.04-0.35); Eosinophils % (A) 0.4 %; HCT 46.2 % (37.2-46.3); HGB 15.1 g/dL (12.0-15.0); Lymphocytes # (A) 0.40 10*3/uL (0.90-5.00); Lymphocytes % (A) 3.7 %; MCH 25.4 pg (27.0-32.0); MCHC 32.7 g/dL (32.0-37.0); MCV 77.8 fL (80.0-97.0); Monocytes # (A) 0.21 10*3/uL (0.20-1.00); Monocytes % (A) 1.9 %; Neutrophils # (A) 10.20 10*3/uL (1.80-7.70); Neutrophils % (A) 93.1 %; Platelet Count 178 10*3/uL (140-440); RBC 5.94 10*6/uL (4.10-5.20); RDW 19.6 % (11.5-14.5); WBC 10.95 10*3/uL (4.50-10.00)
[2025-03-18 13:50] LABS: Bilirubin,Urine Negative (Negative); Blood,Urine Moderate (Negative); Budding Yeast,Urine Occasional /hpf; Color,Urine Colorless; Glucose,Urine (UA) 4+ (Negative); Ketones,Urine Trace (Negative); Leukocyte Esterase,Urine Negative (Negative); Nitrite,Urine Negative (Negative); PH, Urine 6.5 (5.0-8.0); Protein,Urine 2+ (Negative); RBC,Urine 23 /hpf (0-5); Specific Gravity,Urine 1.022 (1.001-1.035); Squamous Epithelial Cell,Urine 1 /hpf (0-4); Urobilinogen,Urine <2.0 mg/dL (<2.0); WBC,Urine 7 /hpf (0-5)
[2025-03-18 14:09] LABS: INR 0.9 (<1.2); Partial Thromboplastin Time 22.0 sec (22.0-30.0); Prothrombin Time 10.0 sec (10.0-12.5)
[2025-03-18 14:10] LABS: ALT 44 U/L (4-34); AST 39 U/L (14-36); African American GFR (CKD) >90 (>60 ml/min/1.73 sqM); Albumin 4.2 g/dL (3.5-5.0); Alkaline Phosphatase 252 U/L (38-126); Anion Gap 11 mmol/L; Blood Urea Nitrogen 40 mg/dL (7-17); Calcium 10.6 mg/dL (8.4-10.2); Carbon Dioxide 30 mmol/L (22-30); Chloride 94 mmol/L (98-107); Glucose 435 mg/dL (74-99); Magnesium 2.4 mg/dL (1.6-2.3); Non-African American GFR(CKD) 89 (>60 ml/min/1.73 sqM); Potassium 4.9 mmol/L (3.5-5.1); Sodium 135 mmol/L (137-145); Total Protein 7.8 g/dL (6.3-8.2)
--- NOTE | 2025-03-18 14:10 | XR ---
EXAMINATION TYPE: XR chest 2V DATE OF EXAM: 03/18/2025 2:02 PM COMPARISON: 03/02/2025 CLINICAL INDICATION: Female, 44 years old with history of Chest Pain, Chest pain TECHNIQUE: XR chest 2V views of the chest are obtained. FINDINGS: There is no focal air space opacity. No evidence for pneumothorax. No pleural effusion. The cardiac silhouette size is within normal limits. The osseous structures are grossly intact. IMPRESSION: 1. No acute cardiopulmonary process. [facility], , 03/18/2025 2:08 PM
[2025-03-18] MEDS ORDERED: DEXTROSE 50% SYRINGE 50 ML IVP PRN ×2 (14:16)
[2025-03-18 14:46] LABS: Glucose,Whole Blood 350 mg/dL (70-110)
[2025-03-18] MEDS: HYDROmorphone 0.5 MG/0.5 ML SYRINGE IVP PRN (14:56)
[2025-03-18] MEDS: PANTOPRAZOLE 40 MG/10 ML VIAL IVP SCH (14:58)
[2025-03-18] MEDS: ASPIRIN 81 MG PO STA (15:14)
[2025-03-18] MEDS: INSULIN GLARGINE (LANTUS) 100 UNIT/ML SYR SQ SCH (15:16)
[2025-03-18] MEDS: NITROGLYCERIN OINT 1 INCH/GM PACKET TOPICAL STA (15:18)
[2025-03-18] MEDS ORDERED: NAPROXEN 250 MG TAB PO PRN (16:14)
[2025-03-18] MEDS ORDERED: HYDROcodone/APAP 10-325MG 1 EACH TAB PO PRN (16:14)
[2025-03-18] MEDS ORDERED: ALBUTEROL NEBULIZED 2.5 MG/3 ML INHALATION PRN (16:14)
[2025-03-18 16:56] LABS: Glucose,Whole Blood 374 mg/dL (70-110)
[2025-03-18] MEDS: FLUCONAZOLE 100 MG TAB PO SCH (17:31)
[2025-03-18] MEDS: INSULIN LISPRO (HumaLOG) 100 UNIT/ML 10 mL VL SQ SCH (17:31)
[2025-03-18] MEDS: METOPROLOL SUCCINATE (ER) 50 MG TAB.ER.24H PO STA (17:31)
[2025-03-18] MEDS: METOCLOPRAMIDE 5 MG TAB PO PRN (17:32)
[2025-03-18] MEDS: SYMBICORT 160-4.5 MCG INHALER INHALATION SCH (20:28)
[2025-03-18] MEDS: PREGABALIN 50 MG CAP PO SCH (20:48)
[2025-03-18] MEDS: APIXABAN 5 MG TAB PO SCH (20:48)
[2025-03-18] MEDS: ATORVASTATIN 40 MG TAB PO SCH (20:49)
[2025-03-18] MEDS: SACUBITRIL/VALSARTAN 24 MG-26 MG TABLET PO SCH (20:49)
[2025-03-18] MEDS: METOCLOPRAMIDE 10 MG TAB PO SCH (20:49)
[2025-03-18] MEDS: CYCLOBENZAPRINE 10 MG TAB PO SCH (20:49)
[2025-03-18] MEDS: ONDANSETRON 4 MG/2 ML VIAL IVP PRN (20:53)
[2025-03-18 21:22] LABS: Glucose,Whole Blood 171 mg/dL (70-110)
--- NOTE | 2025-03-19 01:47 | HP ---
HISTORY AND PHYSICAL CHIEF COMPLAINT: Chest pain, abdominal pain, and headache. HISTORY OF PRESENT ILLNESS: 44-year-old woman with a past medical history of cardiomyopathy with possibly 3-vessel disease, complaining of chest pain in the anterior part of the chest and as well as abdominal pain and headache. Also, the patient noted to be tachycardic and hypertensive. The patient started on treatment. The patient also had elevated blood sugars at this time. There is no history of any fever, rigors, or chills at this time. PAST MEDICAL HISTORY: Reviewed and include cardiomyopathy with coronary artery disease, diabetes mellitus type 2, history of DVT. Rest of the history and chart are also reviewed. HOME MEDICATIONS: Reviewed and include Reglan. Dose and rest of the medications reviewed. ALLERGIES: Reviewed to include penicillin. FAMILY HISTORY: History of diabetes mellitus, cancer. SOCIAL HISTORY: Previous history of smoking. REVIEW OF SYSTEMS: Fourteen-point review of systems is negative, except as mentioned earlier. PHYSICAL EXAMINATION: VITAL SIGNS: Pulse is 112, blood pressure 160/90, respirations 16. HEENT: Conjunctivae normal. NECK: No jugular venous distention. CARDIOVASCULAR: S1 and S2. RESPIRATIONS: Breath sounds diminished at the bases. ABDOMEN: Soft, nontender. EXTREMITIES: Legs, no edema. NERVOUS SYSTEM: Nonfocal. LABORATORY DATA: Reviewed. ASSESSMENT: 1. Chest pain, possible unstable angina. 2. Hypertension. 3. Tachycardia. 4. Diabetes mellitus, type 2, uncontrolled with hyperglycemia. 5. Increased WBC. 6. History of three-vessel coronary artery disease and congestive heart failure and cardiomyopathy. 7. History of deep venous thrombosis. 8. History of pneumonia. 9. Seizure disorder. 10.Multiple complex medical issues. RECOMMENDATIONS AND DISCUSSION: This is a 44-year-old woman who presented with multiple complex medical issues. We will monitor the patient closely. Continue the current management and continue symptomatic treatment. Resume the home medications. Monitor blood pressure closely. I would increase the dose of metoprolol. Guarded prognosis. Further recommendations to follow. MMODL / IJN: [id number] /
[2025-03-19 05:55] LABS: Glucose,Whole Blood 190 mg/dL (70-110)
[2025-03-19 07:35] VITALS: BP 118/74; PULSE 86; RESP 15; TEMP 98.3
[2025-03-19] MEDS: SPIRONOLACTONE 25 MG TAB PO SCH (08:30)
[2025-03-19] MEDS: CLOPIDOGREL 75 MG TAB PO SCH (08:31)
[2025-03-19] MEDS: ASPIRIN 81 MG PO SCH (08:31)
[2025-03-19] MEDS: LORATADINE 10 MG TAB PO SCH (08:31)
[2025-03-19] MEDS: FUROSEMIDE 40 MG TAB PO SCH (08:31)
[2025-03-19] MEDS: levETIRAcetam 500 MG TAB PO SCH (08:31)
[2025-03-19] MEDS ORDERED: METOPROLOL SUCCINATE (ER) 50 MG TAB.ER.24H PO SCH (09:00)
[2025-03-19 09:35] LABS: Anion Gap 11.80 mmol/L (4.00-12.00); BUN/Creat Ratio 45.80 Ratio (12.00-20.00); Blood Urea Nitrogen 45.8 mg/dL (9.0-27.0); Calcium 9.9 mg/dL (8.7-10.3); Carbon Dioxide 27.2 mmol/L (21.6-31.8); Chloride 99 mmol/L (96-109); Glucose 190 mg/dL (70-110); Potassium 4.2 mmol/L (3.5-5.5); Sodium 138 mmol/L (135-145)
[2025-03-19 09:37] LABS: Basophils # (A) 0.03 X 10*3/uL (0.00-0.10); Basophils % (A) 0.3 %; Eosinophils # (A) 0.03 X 10*3/uL (0.04-0.35); Eosinophils % (A) 0.3 %; HCT 41.6 % (37.2-46.3); HGB 12.7 g/dL (12.0-15.0); Immature Grans, Automated 0.30 %; Lymphocytes # (A) 1.04 X 10*3/uL (0.90-5.00); Lymphocytes % (A) 11.9 %; MCH 24.3 pg (27.0-32.0); MCHC 30.5 g/dL (32.0-37.0); MCV 79.7 FL (80.0-97.0); Monocytes # (A) 0.92 X 10*3/uL (0.20-1.00); Monocytes % (A) 10.5 %; NRBC Per 100 WBC 0 X 10*3/uL (0.00-0.01); Neutrophils # (A) 6.69 X 10*3/uL (1.80-7.70); Neutrophils % (A) 76.7 %; Platelet Count 198 X 10*3/uL (140-440); RBC 5.22 X 10*6/uL (4.10-5.20); RDW 19.6 % (11.5-14.5); WBC 8.74 X 10*3/uL (4.50-10.00)
[2025-03-19] MEDS: METOPROLOL SUCCINATE (ER) 100 MG TAB.ER.24H PO SCH (09:54)
--- NOTE | 2025-03-19 15:08 | DS ---
DISCHARGE SUMMARY FINAL DIAGNOSES: 1. Chest pain, possible unstable angina. Myocardial infarction ruled out. 2. Hypertension. 3. Abdominal pain. 4. Tachycardia. 5. Diabetes mellitus, type 2, uncontrolled with hyperglycemia. 6. Increased WBC. 7. History of three-vessel coronary artery disease and congestive heart failure with cardiomyopathy. 8. History of deep vein thrombosis. 9. History of pneumonia. 10.Seizure disorders. 11.Multiple complex medical issues. DISCHARGE DISPOSITION: The patient is being discharged in stable condition and guarded prognosis. HISTORY OF PRESENT ILLNESS: This is a 44-year-old woman with a past medical history with medical problems and admitted with chest and abdominal pain, myocardial perfusion ruled out with symptomatic treatment. The patient improved significantly. Cardiology saw the patient and the patient being discharged with recommendation to continue the home medications. Follow up with Primary Physician and Cardiology in the outpatient setting. Once again, the patient is being discharged in stable condition with overall prognosis guarded. MMODL / IJN: [id number] /
== END 2025-03-19 11:07 | disposition home or self-care (01) ==
LOC: EC 11:24 → 6NMEDSUR 14:49
PROVIDERS: ADMIT Hospitalist; ATTEND Hospitalist
DX: R07.9 Chest pain, unspecified (principal); E11.65 Type 2 diabetes mellitus with hyperglycemia; R10.9 Unspecified abdominal pain; D72.829 Elevated white blood cell count, unspecified; R00.0 Tachycardia, unspecified; I11.0 Hypertensive heart disease with heart failure; I50.9 Heart failure, unspecified; I42.9 Cardiomyopathy, unspecified; I25.10 Atherosclerotic heart disease of native coronary artery without angina pectoris; F41.9 Anxiety disorder, unspecified; G40.909 Epilepsy, unspecified, not intractable, without status epilepticus; Z86.718 Personal history of other venous thrombosis and embolism; Z86.73 Personal history of transient ischemic attack (TIA), and cerebral infarction without residual deficits; Z87.891 Personal history of nicotine dependence; Z95.5 Presence of coronary angioplasty implant and graft; Z79.899 Other long term (current) drug therapy; Z79.01 Long term (current) use of anticoagulants; Z79.51 Long term (current) use of inhaled steroids; Z79.02 Long term (current) use of antithrombotics/antiplatelets; Z79.4 Long term (current) use of insulin; Z79.82 Long term (current) use of aspirin; Z88.0 Allergy status to penicillin; Z88.2 Allergy status to sulfonamides; Z88.5 Allergy status to narcotic agent
CPT/HCPCS: 96376 ×2; 96374; 96375; 99285; 36415; 94640; 93005; 80053; 80048; 83735; 84484; 85025 ×2; 85610; 85730; 81001; 83036; 71046; G0378 ×2; J2405 ×2; J1171 ×2; J2470 ×2

== ENCOUNTER 2025-03-22 13:56 | Observation (INO) | payer OTHER ==
--- NOTE | 2025-03-22 15:22 | ED ---
Chest Pain HPI - General Chief Complaint: Chest Pain Stated Complaint: N/V Time Seen by Provider: 03/22/25 14:08 Source: patient, RN notes reviewed Mode of arrival: EMS Limitations: no limitations - History of Present Illness Initial Comments: This is a 45-year-old female with history including DM, GI bleed, heart failure and seizure disorder presenting via EMS for burning/squeezing chest pain (05/26) x 3 days. Patient was seen in this ER several days ago for chest pain, admitted to observation and received echocardiogram with no abnormal findings prior to discharge. Patient states she has had a history of gastroparesis for the past 2 years and has been unable to control her symptoms which she attributes her current pain to. States her chest/abdomen feels "on fire". Endorses associated nausea/vomiting, making regular intake of her daily home medications, including her seizure medication, not possible. Patient states she had seen gastroenterology once regarding this issue but has otherwise not received any definitive treatment. Denies [id number] medication use to treat her current symptoms. Denies fever, chills, hematemesis, dyspnea, diaphoresis, dizziness. Onset/Timin -: days(s) Onset: during rest Pain Location: substernal Pain Radiation: none Severity scale (1-10): 9 Quality: tightness, other (Burning) Consistency: constant Worsens With: eating Anginal Symptoms: nausea, vomiting - Related Data Home Medications Medication Instructions Recorded Confirmed HYDROcodone/APAP 10-325MG [[place] 1 tab PO TID PRN 01/14/18 03/22/25 10-325] levETIRAcetam [Keppra] 500 mg PO DAILY 08/29/23 03/22/25 Albuterol Nebulized [Ventolin 2.5 mg INHALATION RT-QID PRN 11/04/24 03/22/25 Nebulized] Apixaban [Eliquis] 5 mg PO BID 11/04/24 03/22/25 Budesonide/Formoterol Fumarate 2 puff INHALATION RT-DAILY 11/04/24 03/22/25 [Symbicort 160-4.5 Mcg Inhaler] Pantoprazole [Protonix] 40 mg PO DAILY 12/21/24 03/22/25 Naproxen [Naprosyn] 500 mg PO BID PRN 12/31/24 03/22/25 Sacubitril/Valsartan [Entresto 24 1 tab PO BID 02/24/25 03/22/25 mg-26 mg Tablet] Clopidogrel [Plavix] 75 mg PO DAILY 03/01/25 03/22/25 Insulin Glargine,Hum.rec.anlog 20 units SQ DAILY 03/01/25 03/22/25 [Lantus Solostar Pen] Pregabalin [Lyrica] 50 mg PO BID 03/06/25 03/22/25 Cyclobenzaprine [Flexeril] 20 mg PO HS 03/18/25 03/22/25 Furosemide [Lasix] 40 mg PO DAILY 03/18/25 03/22/25 Loratadine 10 mg PO DAILY 03/18/25 03/22/25 Metoclopramide [Reglan] 10 mg PO AC-BID 03/18/25 03/22/25 Rosuvastatin [Crestor] 20 mg PO HS 03/18/25 03/22/25 Previous Rx's Medication Instructions Recorded Aspirin 81 mg PO DAILY #30 tab 01/29/25 Metoprolol Succinate (ER) [Toprol 50 mg PO DAILY 90 Days #90 tab 02/20/25 XL] Spironolactone [Aldactone] 25 mg PO DAILY #30 tab 02/20/25 Metoclopramide HCl [Reglan] 5 mg PO TID PRN #20 tab 02/27/25 Ondansetron Odt [Zofran ODT] 4 mg PO TID PRN #20 tab 02/27/25 Metoclopramide [Reglan] 5 mg PO TID #20 tab 03/22/25 Allergies Allergy/AdvReac Type Severity Reaction Status Date / Time Penicillins Allergy Nausea & Verified 03/22/25 17:18 Vomiting, rash codeine AdvReac Nausea & Verified 03/22/25 17:18 Vomiting morphine AdvReac Nausea & Verified 03/22/25 17:18 Vomiting Sulfa (Sulfonamide AdvReac Nausea & Verified 03/22/25 17:19 Antibiotics) Vomiting, rash tramadol AdvReac Per Verified 03/22/25 17:18 patient, cannot take with Keppra Review of Systems ROS Statement: Those systems with pertinent positive or pertinent negative responses have been documented in the HPI. ROS Other: All systems not noted in ROS Statement are negative. Past Medical History Past Medical History: Asthma, Heart Failure, CVA/TIA, Diabetes Mellitus, Deep Vein Thrombosis (DVT), GI Bleed, Pneumonia, Seizure Disorder Additional Past Medical History / Comment(s): bilateral pleural effusion, 09/2024 bilateral hip and ankle bursitis, 3 discs in lower back deteroitrating and 2 bulging. CVA with vision impairment. DVT bilateral legs. History of Any Multi-Drug Resistant Organisms: None Reported, MRSA Date of last positivie culture/infection: 2011 MDRO Source:: Lungs Past Surgical History: Section, Cholecystectomy, Heart Catheterization With Stent, Tubal Ligation Additional Past Surgical History / Comment(s): Colonoscopies, right groin mole remove, kidney stones surgically removed, bilateral cataracts removed, glaucoma surgery, bilateral retinal surgery for bleeding, bilateral thoracentesis, Heart Cath with 2 stents Past Anesthesia/Blood Transfusion Reactions: No Reported Reaction Date of Last Stent Placement:: 02/19/25 Past Psychological History: Anxiety Smoking Status: Former smoker Past Alcohol Use History: None Reported Past Drug Use History: None Reported - Past Family History Father Family Medical History: Cancer, Diabetes Mellitus Additional Family Medical History / Comment(s): COLON CANCER, MELANOMA ON HIS CHEST AND HE ALSO HAS BENIGN BRAIN TUMORS X2, pancreatic cancer. Mother Family Medical History: Cancer, Diabetes Mellitus, Dialysis, Myocardial Infarction (MT) Additional Family Medical History / Comment(s): MELANOMA THAT METASTASIZED TO THE BRAIN- AT AGE 49. Mother had an MT at age 34 with angioplasty at age 36 yrs and another MT, and history of diabetes. Patient has many aunts, uncles and nieces with diabetes on her mother's side. Brother(s) Family Medical History: Cancer Additional Family Medical History / Comment(s): Patient has one half-brother with kidney stones, full brother with no major medical problems. Patient has 1 sister with no major medical problems. Daughter(s) Family Medical History: Seizure Disorder Additional Family Medical History / Comment(s): Patient has 2 daughters and her youngest daughter has history of seizure disorder. Patient has one son with no major medical problems. General Exam Limitations: no limitations General appearance: alert, in distress Head exam: Present: atraumatic, normocephalic, normal inspection Eye exam: Present: normal appearance, PERRL, EOMI. Absent: scleral icterus, conjunctival injection, periorbital swelling ENT exam: Present: normal exam, mucous membranes dry Neck exam: Present: normal inspection. Absent: tenderness, meningismus, lymphadenopathy Respiratory exam: Present: normal lung sounds bilaterally. Absent: respiratory distress, wheezes, rales, rhonchi, stridor, accessory muscle use, decreased breath sounds, prolonged expiratory Cardiovascular Exam: Present: regular rate, normal rhythm, normal heart sounds. Absent: systolic murmur, diastolic murmur, rubs, gallop, clicks GI/Abdominal exam: Present: soft, tenderness (Positive diffuse tenderness without guarding especially RUQ), diminished bowel sounds, hypoactive bowel sounds. Absent: distended, guarding, rebound, rigid, mass, pulsatile mass, hernia Extremities exam: Present: normal inspection, full ROM, normal capillary refill. Absent: tenderness, pedal edema, joint swelling, calf tenderness Back exam: Present: normal inspection Neurological exam: Present: alert, oriented X3, CN II-XII intact Psychiatric exam: Present: normal affect, normal mood Skin exam: Present: warm, dry, intact, normal color. Absent: rash Course Vital Signs 03/22/25 03/22/25 03/22/25 14:52 15:35 18:30 Temperature 97.8 F 98.9 F Pulse Rate 116 H 106 H 107 H Respiratory 26 H 18 18 Rate Blood Pressure 107/74 160/105 103/72 O2 Sat by Pulse 98 98 97 Oximetry 03/22/25 03/22/25 20:15 21:39 Temperature Pulse Rate 113 H 105 H Respiratory 16 16 Rate Blood Pressure 147/94 111/73 O2 Sat by Pulse 98 97 Oximetry Chest Pain MDM - MDM Was pt. sent in by a medical professional or institution (, PA, REGIONAL COMMERCIAL SALES MANAGER, urgent care, hospital, or half-way...) When possible be specific @ -No Did you speak to anyone other than the patient for history (EMS, parent, family, police, friend...)? What history was obtained from this source @ -No Did you review nursing and triage notes (agree or disagree)? Why? @ -I reviewed and agree with nursing and triage notes Were old charts reviewed (outside hosp., previous admission, EMS record, old EKG, old radiological studies, urgent care reports/EKG's, half-way records)? Report findings @ -Chart for ER visit on 03/18/2025 reviewed, showing workup for chest pain prior to observation admission the patient for further cardiac workup. Differential Diagnosis (chest pain, altered mental status, abdominal pain women, abdominal pain men, vaginal bleeding, weakness, fever, dyspnea, syncope, headache, dizziness, GI bleed, back pain, seizure, CVA, palpatations, mental health, musculoskeletal)? @ -Differential Abdominal Pain Women: Appendicitis, Cholecystitis, diverticulosis, ischemic bowel, pancreatitis, hepatitis, UTI, gastroenteritis, AAA, incarcerated hernia, bowel obstruction, constipation, inflammatory bowel, hepatitis, peptic ulcer disease, splenic infarction, perforated viscus, vulvitis, ovarian torsion, PID, kidney stone, placenta abruption, this is not meant to be an all-inclusive list EKG interpreted by me (3pts min.). @ -Sinus tachycardia without ST deviation or T wave inversion. Ventricular rate 110 bpm, RAQUEL 124 ms, QRS 78 ms, QTc 413 ms. X-rays interpreted by me (1pt min.). @ -CXR shows no acute cardiopulmonary process. CT interpreted by me (1pt min.). @ -None done U/S interpreted by me (1pt. min.). @ -None done What testing was considered but not performed or refused? (CT, X-rays, U/S, labs)? Why? @ -None What meds were considered but not given or refused? Why? @ -None Did you discuss the management of the patient with other professionals (professionals i.e. , PA, REGIONAL COMMERCIAL SALES MANAGER, lab, RT, psych nurse, social and political studies professor, violin tutor, teacher, loan officer assistant, director case)? Give summary @ -Spoke to from [facility] who advised to add both [place] and Dilaudid for ongoing pain management. Was smoking cessation discussed for >3mins.? @ -No Was critical care preformed (if so, how long)? @ -No Were there social determinants of health that impacted care today? How? (Homelessness, low income, unemployed, alcoholism, drug addiction, transportation, low edu. Level, literacy, decrease access to med. care, long term, rehab)? @ -No Was there de-escalation of care discussed even if they declined (Discuss DNR or withdrawal of care, Hospice)? DNR status @ -No What co-morbidities impacted this encounter? (DM, HTN, Smoking, COPD, CAD, Cancer, CVA, ARF, Chemo, Hep., AIDS, mental health diagnosis, sleep apnea, morbid obesity)? @ -None Was patient admitted / discharged? Hospital course, mention meds given and route, prescriptions, significant lab abnormalities, going to OR and other pertinent info. @ -Patient initially provided Zofran, Dilaudid and GI cocktail, noting significant relief of pain. Also provided initial dose of Rocephin with blood culture due to SIRS criteria being met with tachycardia and tachypnea. Lab work shows iron deficient anemia anion gap 19, stable CKD, glucose 221 and stable alkaline phosphatase. Troponin also minimally elevated but stable. Lipase 91. CXR shows no acute cardiopulmonary process. Patient notes significant relief with initial medication provided but endorses concern that symptoms will return if she is discharged without more definitive care/treatment. Spoke to from [facility] regarding patient with him advising to add [place] and Dilaudid for pain control. Discussed patient with Dr. Mccracken. Undiagnosed new problem with uncertain prognosis? @ -No Drug Therapy requiring intensive monitoring for toxicity (Heparin, Nitro, Insulin, Cardizem)? @ -No Were any procedures done? @ -No Diagnosis/symptom? @ -Gastroparesis Acute, or Chronic, or Acute on Chronic? @ -Acute on chronic Uncomplicated (without systemic symptoms) or Complicated (systemic symptoms)? @ -Complicated Side effects of treatment? @ -No Exacerbation, Progression, or Severe Exacerbation? @ -Severe exacerbation Poses a threat to life or bodily function? How? (Chest pain, [place], MT, pneumonia, PE, COPD, DKA, ARF, appy, cholecystitis, CVA, Diverticulitis, Homicidal, Suicidal, threat to staff... and all critical care pts) @ -No Disposition Clinical Impression: Gastroparesis Disposition: ADMITTED IP TO THIS HOSP Condition: Fair Time of Disposition: 18:30 Decision Date: 03/22/25 Decision Time: 18:30
[2025-03-22] MEDS: SODIUM CHLORIDE 0.9% 1,000 ML IV STA (16:11)
[2025-03-22] MEDS: METOCLOPRAMIDE 5 MG/ML 2 ML VIAL IVP STA (16:12)
[2025-03-22] MEDS: HYDROmorphone 1 MG/ML 1 ML SYRINGE IVP STA (16:14)
[2025-03-22] MEDS: FAMOTIDINE 20 MG/2 ML VIAL IV STA (16:16)
[2025-03-22] MEDS: PANTOPRAZOLE 40 MG/10 ML VIAL IVP STA (16:19)
[2025-03-22 16:20] LABS: Basophils # (A) 0.04 10*3/uL (0.00-0.10); Basophils % (A) 0.7 %; Eosinophils # (A) 0.02 10*3/uL (0.04-0.35); Eosinophils % (A) 0.4 %; HCT 51.9 % (37.2-46.3); HGB 16.5 g/dL (12.0-15.0); Lymphocytes # (A) 0.83 10*3/uL (0.90-5.00); Lymphocytes % (A) 14.8 %; MCH 25.3 pg (27.0-32.0); MCHC 31.8 g/dL (32.0-37.0); MCV 79.7 fL (80.0-97.0); Monocytes # (A) 0.25 10*3/uL (0.20-1.00); Monocytes % (A) 4.5 %; Neutrophils # (A) 4.46 10*3/uL (1.80-7.70); Neutrophils % (A) 79.4 %; Platelet Count 276 10*3/uL (140-440); RBC 6.51 10*6/uL (4.10-5.20); RDW 19.8 % (11.5-14.5); WBC 5.61 10*3/uL (4.50-10.00)
[2025-03-22] MEDS: cefTRIAXone IN SWFI 1,000 MG/10 ML SYRINGE IVP STA (16:21)
[2025-03-22 16:37] LABS: INR 0.9 (<1.2); Prothrombin Time 10.4 sec (10.0-12.5)
--- NOTE | 2025-03-22 16:49 | XR ---
EXAMINATION TYPE: XR chest 2V DATE OF EXAM: 03/22/2025 4:41 PM COMPARISON: Chest radiographs from 04-09. CLINICAL INDICATION: Female, 45 years old with history of Chest Pain; [facility] TECHNIQUE: XR chest 2V Frontal and lateral views of the chest. FINDINGS: Lungs/Pleura: There is no evidence of pleural effusion, focal consolidation, or pneumothorax. Pulmonary vascularity: Unremarkable. Heart/mediastinum: Cardiomediastinal silhouette is unremarkable. Musculoskeletal: No acute osseous pathology. IMPRESSION: No acute cardiopulmonary disease/process. [facility], , 03/22/2025 4:47 PM
[2025-03-22 16:55] LABS: Partial Thromboplastin Time 19.4 sec (22.0-30.0)
[2025-03-22 17:28] LABS: ALT 38 U/L (4-34); AST 34 U/L (14-36); African American GFR (CKD) 75 (>60 ml/min/1.73 sqM); Albumin 4.3 g/dL (3.5-5.0); Alkaline Phosphatase 249 U/L (38-126); Anion Gap 19 mmol/L; Blood Urea Nitrogen 56 mg/dL (7-17); Calcium 11.0 mg/dL (8.4-10.2); Carbon Dioxide 27 mmol/L (22-30); Chloride 93 mmol/L (98-107); Glucose 221 mg/dL (74-99); Lipase 91 U/L (23-300); Magnesium 2.5 mg/dL (1.6-2.3); Non-African American GFR(CKD) 65 (>60 ml/min/1.73 sqM); Potassium 4.6 mmol/L (3.5-5.1); Sodium 139 mmol/L (137-145); Total Protein 8.1 g/dL (6.3-8.2)
[2025-03-22] MEDS ORDERED: NALOXONE 0.4 MG/ML 1 ML VIAL IV PRN (18:51)
[2025-03-22] MEDS: METOCLOPRAMIDE 5 MG/ML 2 ML VIAL IVP SCH (19:40)
[2025-03-22] MEDS: FAMOTIDINE 20 MG/2 ML VIAL IVP SCH (19:40)
[2025-03-22] MEDS: SODIUM CHLORIDE 0.9% 1,000 ML IV SCH (20:00)
[2025-03-22] MEDS: levETIRAcetam 500 MG TAB PO SCH (20:00)
[2025-03-22] MEDS: ONDANSETRON 4 MG/2 ML VIAL IVP SCH (20:11)
[2025-03-22] MEDS: HYDROmorphone 0.5 MG/0.5 ML SYRINGE IVP PRN (20:11)
[2025-03-22] MEDS: PREGABALIN 50 MG CAP PO SCH (20:12)
[2025-03-22] MEDS: APIXABAN 5 MG TAB PO SCH (20:12)
[2025-03-22] MEDS: ATORVASTATIN 40 MG TAB PO SCH (20:12)
[2025-03-22] MEDS: SACUBITRIL/VALSARTAN 24 MG-26 MG TABLET PO SCH (20:46)
[2025-03-23 07:38] LABS: Glucose,Whole Blood 160 mg/dL (70-110)
[2025-03-23] MEDS: INSULIN GLARGINE (LANTUS) 100 UNIT/ML SYR SQ SCH (07:47)
[2025-03-23 08:46] LABS: Bacteria,Urine Rare /hpf; Bilirubin,Urine Negative (Negative); Blood,Urine Large (Negative); Color,Urine Yellow; Glucose,Urine (UA) 4+ (Negative); Ketones,Urine Negative (Negative); Leukocyte Esterase,Urine Large (Negative); Mucus,Urine Rare /hpf; Nitrite,Urine Negative (Negative); PH, Urine 6.0 (5.0-8.0); Protein,Urine 3+ (Negative); RBC,Urine >182 /hpf (0-5); Specific Gravity,Urine 1.022 (1.001-1.035); Squamous Epithelial Cell,Urine 7 /hpf (0-4); Urobilinogen,Urine <2.0 mg/dL (<2.0); WBC,Urine >182 /hpf (0-5)
[2025-03-23] MEDS: HYDROcodone/APAP 10-325MG 1 EACH TAB PO PRN (08:50)
[2025-03-23] MEDS: FUROSEMIDE 40 MG TAB PO SCH (08:51)
[2025-03-23] MEDS: SPIRONOLACTONE 25 MG TAB PO SCH (08:51)
[2025-03-23] MEDS: CLOPIDOGREL 75 MG TAB PO SCH (08:52)
[2025-03-23] MEDS: PANTOPRAZOLE 40 MG/10 ML VIAL IV SCH (08:53)
[2025-03-23 11:54] LABS: HCT 41.9 % (37.2-46.3); MCH 25.4 pg (27.0-32.0); MCHC 31.5 g/dL (32.0-37.0); MCV 80.7 fL (80.0-97.0); Platelet Count 255 10*3/uL (140-440); RBC 5.19 10*6/uL (4.10-5.20); RDW 18.8 % (11.5-14.5); WBC 5.64 10*3/uL (4.50-10.00)
[2025-03-23 11:59] LABS: HGB 13.2 g/dL (12.0-15.0)
[2025-03-23 12:07] LABS: ALT 32 U/L (4-34); AST 32 U/L (14-36); African American GFR (CKD) >90 (>60 ml/min/1.73 sqM); Albumin 3.2 g/dL (3.5-5.0); Albumin/Globulin Ratio 1.0; Alkaline Phosphatase 175 U/L (38-126); Anion Gap 5 mmol/L; Blood Urea Nitrogen 44 mg/dL (7-17); Calcium 9.3 mg/dL (8.4-10.2); Carbon Dioxide 28 mmol/L (22-30); Chloride 102 mmol/L (98-107); Globulin 3.1 g/dL; Glucose 210 mg/dL (74-99); Non-African American GFR(CKD) 87 (>60 ml/min/1.73 sqM); Potassium 4.0 mmol/L (3.5-5.1); Sodium 135 mmol/L (137-145); Total Protein 6.3 g/dL (6.3-8.2)
--- NOTE | 2025-03-23 15:53 | P.HPIM ---
History of Present Illness H&P Date: 03/23/25 Chief Complaint: Chest pain and gastroparesis History of present illness; 45-year-old female with a past medical history of systolic heart failure (EF 25%, history of CVA, A-fib on Eliquis diabetes m ellitus, CAD with stent placement to proximal and mid LAD with Dr. Fam, DVT, GI bleed, and seizure disorder presents with complaints of chest pain. States the chest pain started yesterday while at rest, rated as a 10 out of 10 described as burning sensation without radiation. Admits to increased chest pain with just touching her chest. Patient also admits to having bilious vomit which she has had at least 2 episodes of since leaving the hospital last time. States her last bowel movement was 2 days ago and it was normal. Denies shortness of breath, palpitation, headache, fever, and lower extremity edema. Labs: WBC 5.6, hemoglobin 16.5, platelet count 276, PT 10.4, INR 0.9, sodium 139 , potassium 4.6, chloride 93, BUN 56, creatinine 1.03, glucose 221, plasma lactic acid venous 1.6, calcium 11, magnesium 2.5, AST 38, ALT 249, troponin 0.027-->0.029 Imaging: - EKG done in the ER showed heart rate of 95 bpm, sinus rhythm, left atrial enlargement, left axis deviation is borderline, and QTc 4 and 50 - ER CXR: No acute cardiopulmonary process/disease REVIEW OF SYSTEMS: As stated above in HPI. The rest of the 14-point review of systems is negative. PHYSICAL EXAMINATION: GENERAL: The patient is alert and oriented x3, not in any acute distress. Well developed, well nourished. HEENT: Pupils are round and equally reacting to light. EOMI. No scleral icterus. No conjunctival pallor. Normocephalic, atraumatic. CARDIOVASCULAR: S1 and S2 present. No murmurs, rubs, or gallops. PULMONARY: Chest is clear to auscultation b/l, no wheezing or crackles. ABDOMEN: Soft, nontender, nondistended, normoactive bowel sounds. No palpable organomegaly. MUSCULOSKELETAL: No joint swelling or deformity. Reproducible chest pain upon palpation. EXTREMITIES: No cyanosis, clubbing, or pedal edema. NEUROLOGICAL: Gross neurological examination did not reveal any focal deficits. SKIN: No rashes. Assessment and Plan #Atypical chest pain: #History of atrial fibrillation #Systolic heart failure EF 25% #History of CAD with stent placement - Resume home cardiac medications including Eliquis, aspirin, Lipitor, Plavix, metoprolol, Entresto, Aldactone, and Lasix - Chest pain is reproducible upon palpation - Patient was recently worked up for similar issue, echo from 01/25/2025 shows an EF of 25% with global decrease in contractility #SIRS criteria: - Continue NS 75 cc/h - Blood cultures drawn - Patient received 1 dose of Rocephin 1 g in the ER, likely will discontinue Rocephin tomorrow if blood cultures come back negative. #Chronic gastroparesis - GI consulted, appreciate further recommendations - History of diabetes - Ordered Reglan 5 mg IVP Q6HR as needed - Discussed with patient potential need for gastric pacemaker which she is aware of as she follows with a GI outpatient #Diabetes: - Continue home Lantus 20 units SQ daily #Seizure disorder: - Resume home Keppra 500 mg p.o. daily F: NS 75 cc/h E: None N: Heart healthy diet DVT ppx: Eliquis 5 mg p.o. twice daily GI ppx: Protonix 40 mg IV daily CODE STATUS: Full code Dispo: Pending clinical course, once patient's pain improves and she is able to tolerated diet likely can be discharged Lashon Hicks MD PGY-2 FM Dictation was produced using [employer] dictation software. please excuse any grammatical, word or spelling errors. Past Medical History Past Medical History: Asthma, Heart Failure, CVA/TIA, Diabetes Mellitus, Deep Vein Thrombosis (DVT), GI Bleed, Pneumonia, Seizure Disorder Additional Past Medical History / Comment(s): bilateral pleural effusion, 09/2024 bilateral hip and ankle bursitis, 3 discs in lower back deteroitrating and 2 bulging. CVA with vision impairment. DVT bilateral legs. History of Any Multi-Drug Resistant Organisms: None Reported, MRSA Date of last positivie culture/infection: 2011 MDRO Source:: Lungs Past Surgical History: Section, Cholecystectomy, Heart Catheterization With Stent, Tubal Ligation Additional Past Surgical History / Comment(s): Colonoscopies, right groin mole remove, kidney stones surgically removed, bilateral cataracts removed, glaucoma surgery, bilateral retinal surgery for bleeding, bilateral thoracentesis, Heart Cath with 2 stents Past Anesthesia/Blood Transfusion Reactions: No Reported Reaction Date of Last Stent Placement:: 02/19/25 Past Psychological History: Anxiety Smoking Status: Former smoker Past Alcohol Use History: None Reported Past Drug Use History: None Reported - Past Family History Father Family Medical History: Cancer, Diabetes Mellitus Additional Family Medical History / Comment(s): COLON CANCER, MELANOMA ON HIS CHEST AND HE ALSO HAS BENIGN BRAIN TUMORS X2, pancreatic cancer. Mother Family Medical History: Cancer, Diabetes Mellitus, Dialysis, Myocardial Inf arction (SC) Additional Family Medical History / Comment(s): MELANOMA THAT METASTASIZED TO THE BRAIN- AT AGE 49. Mother had an SC at age 34 with angioplasty at age 36 yrs and another SC, and history of diabetes. Patient has many aunts, uncles and nieces with diabetes on her mother's side. Brother(s) Family Medical History: Cancer Additional Family Medical History / Comment(s): Patient has one half-brother wit h kidney stones, full brother with no major medical problems. Patient has 1 sister with no major medical problems. Daughter(s) Family Medical History: Seizure Disorder Additional Family Medical History / Comment(s): Patient has 2 daughters and her youngest daughter has history of seizure disorder. Patient has one son with no major medical problems. Medications and Allergies Home Medications Medication Instructions Recorded Confirmed Type HYDROcodone/APAP 10-325MG [[place] 1 tab PO TID PRN 01/14/18 03/22/25 History 10-325] levETIRAcetam [Keppra] 500 mg PO DAILY 08/29/23 03/22/25 History Albuterol Nebulized [Ventolin 2.5 mg INHALATION RT-QID PRN 11/04/24 03/22/25 History Nebulized] Apixaban [Eliquis] 5 mg PO BID 11/04/24 03/22/25 History Budesonide/Formoterol Fumarate 2 puff INHALATION RT-DAILY 11/04/24 03/22/25 History [Symbicort 160-4.5 Mcg Inhaler] Pantoprazole [Protonix] 40 mg PO DAILY 12/21/24 03/22/25 History Naproxen [Naprosyn] 500 mg PO BID PRN 12/31/24 03/22/25 History Aspirin 81 mg PO DAILY #30 tab 01/29/25 03/22/25 Rx Metoprolol Succinate (ER) [Toprol 50 mg PO DAILY 90 Days #90 tab 02/20/25 03/22/25 Rx XL] Spironolactone [Aldactone] 25 mg PO DAILY #30 tab 02/20/25 03/22/25 Rx Sacubitril/Valsartan [Entresto 24 1 tab PO BID 02/24/25 03/22/25 History mg-26 mg Tablet] Metoclopramide HCl [Reglan] 5 mg PO TID PRN #20 tab 02/27/25 03/22/25 Rx Ondansetron Odt [Zofran ODT] 4 mg PO TID PRN #20 tab 02/27/25 03/22/25 Rx Clopidogrel [Plavix] 75 mg PO DAILY 03/01/25 03/22/25 History Insulin Glargine,Hum.rec.anlog 20 units SQ DAILY 03/01/25 03/22/25 History [Lantus Solostar Pen] Pregabalin [Lyrica] 50 mg PO BID 03/06/25 03/22/25 History Cyclobenzaprine [Flexeril] 20 mg PO HS 03/18/25 03/22/25 History Furosemide [Lasix] 40 mg PO DAILY 03/18/25 03/22/25 History Loratadine 10 mg PO DAILY 03/18/25 03/22/25 History Metoclopramide [Reglan] 10 mg PO AC-BID 03/18/25 03/22/25 History Rosuvastatin [Crestor] 20 mg PO HS 03/18/25 03/22/25 History Metoclopramide [Reglan] 5 mg PO TID #20 tab 03/22/25 Rx Allergies Allergy/AdvReac Type Severity Reaction Status Date / Time Penicillins Allergy Nausea & Verified 03/22/25 17:18 Vomiting, rash codeine AdvReac Nausea & Verified 03/22/25 17:18 Vomiting morphine AdvReac Nausea & Verified 03/22/25 17:18 Vomiting Sulfa (Sulfonamide AdvReac Nausea & Verified 03/22/25 17:19 Antibiotics) Vomiting, rash tramadol AdvReac Per Verified 03/22/25 17:18 patient, cannot take with Keppra Physical Exam Vitals: Vital Signs Temp Pulse Resp BP Pulse Ox 03/23/25 05:47 84 16 107/73 97 03/23/25 04:32 90 16 129/85 100 03/23/25 04:00 98.4 F 101 H 18 113/74 98 03/23/25 01:20 86 16 101/65 97 03/22/25 23:54 103 H 18 129/75 98 03/22/25 22:52 102 H 16 135/86 97 03/22/25 21:39 105 H 16 111/73 97 03/22/25 20:15 113 H 16 147/94 98 03/22/25 18:30 98.9 F 107 H 18 103/72 97 03/22/25 15:35 106 H 18 160/105 98 03/22/25 14:52 97.8 F 116 H 26 H 107/74 98 Results CBC & Chem 7: 03/23/25 11:43 03/23/25 11:43 Labs: Abnormal Lab Results - Last 24 Hours (Table) 03/22/25 03/22/25 03/22/25 Range/Units 16:10 16:10 16:10 RBC 6.51 H (4.10-5.20) 10*6/uL Hgb 16.5 H (12.0-15.0) g/dL Hct 51.9 H (37.2-46.3) % MCV 79.7 L (80.0-97.0) fL MCH 25.3 L (27.0-32.0) pg MCHC 31.8 L (32.0-37.0) g/dL MPV 9.3 L (9.5-12.2) fL Lymphocytes # 0.83 L (0.90-5.00) 10*3/uL Eosinophils # 0.02 L (0.04-0.35) 10*3/uL APTT 19.4 L (22.0-30.0) sec Chloride 93 L (98-107) mmol/L BUN 56 H (7-17) mg/dL Glucose 221 H (74-99) mg/dL POC Glucose (mg/dL) (70-110) mg/dL Calcium 11.0 H (8.4-10.2) mg/dL Magnesium 2.5 H (1.6-2.3) mg/dL ALT 38 H (4-34) U/L Alkaline Phosphatase 249 H (38-126) U/L 03/23/25 Range/Units 07:37 RBC (4.10-5.20) 10*6/uL Hgb (12.0-15.0) g/dL Hct (37.2-46.3) % MCV (80.0-97.0) fL MCH (27.0-32.0) pg MCHC (32.0-37.0) g/dL MPV (9.5-12.2) fL Lymphocytes # (0.90-5.00) 10*3/uL Eosinophils # (0.04-0.35) 10*3/uL APTT (22.0-30.0) sec Chloride (98-107) mmol/L BUN (7-17) mg/dL Glucose (74-99) mg/dL POC Glucose (mg/dL) 160 H (70-110) mg/dL Calcium (8.4-10.2) mg/dL Magnesium (1.6-2.3) mg/dL ALT (4-34) U/L Alkaline Phosphatase (38-126) U/L
[2025-03-23] MEDS ORDERED: METOCLOPRAMIDE 5 MG TAB PO SCH (17:30)
[2025-03-23] MEDS: METOCLOPRAMIDE 5 MG/ML 2 ML VIAL IVP PRN (17:34)
[2025-03-23] MEDS: SYMBICORT 160-4.5 MCG INHALER INHALATION SCH (18:51)
[2025-03-23 20:01] LABS: Glucose,Whole Blood 262 mg/dL (70-110)
[2025-03-23] MEDS: CYCLOBENZAPRINE 10 MG TAB PO SCH (20:25)
[2025-03-23] MEDS: FAMOTIDINE 20 MG/2 ML VIAL IVP SCH (20:25)
[2025-03-24 06:08] LABS: Glucose,Whole Blood 197 mg/dL (70-110)
[2025-03-24 09:32] LABS: HCT 39.9 % (37.2-46.3); HGB 12.4 g/dL (12.0-15.0); MCH 25.1 pg (27.0-32.0); MCHC 31.1 g/dL (32.0-37.0); MCV 80.8 fL (80.0-97.0); Platelet Count 259 10*3/uL (140-440); RBC 4.94 10*6/uL (4.10-5.20); RDW 18.4 % (11.5-14.5); WBC 5.68 10*3/uL (4.50-10.00)
[2025-03-24 09:57] LABS: ALT 31 U/L (4-34); AST 42 U/L (14-36); African American GFR (CKD) >90 (>60 ml/min/1.73 sqM); Albumin 3.1 g/dL (3.5-5.0); Albumin/Globulin Ratio 1.1; Alkaline Phosphatase 166 U/L (38-126); Anion Gap 5 mmol/L; Blood Urea Nitrogen 28 mg/dL (7-17); Calcium 9.4 mg/dL (8.4-10.2); Carbon Dioxide 28 mmol/L (22-30); Chloride 98 mmol/L (98-107); Globulin 2.8 g/dL; Glucose 285 mg/dL (74-99); Non-African American GFR(CKD) 88 (>60 ml/min/1.73 sqM); Potassium 4.3 mmol/L (3.5-5.1); Sodium 131 mmol/L (137-145); Total Protein 5.9 g/dL (6.3-8.2)
[2025-03-24] MEDS: METOPROLOL SUCCINATE (ER) 50 MG TAB.ER.24H PO SCH (10:39)
[2025-03-24] MEDS: ASPIRIN 81 MG PO SCH (10:40)
[2025-03-24 12:10] LABS: Glucose,Whole Blood 309 mg/dL (70-110)
--- NOTE | 2025-03-24 15:51 | P.PN ---
Subjective Chief Complaint: Chest pain and gastroparesis History of present illness; 45-year-old female with a past medical history of systolic heart failure (EF 25%, history of CVA, A-fib on Eliquis diabetes mellitus, CAD with stent placement to proximal and mid LAD with Dr. Fam, DVT, GI bleed, and seizure disorder presents with complaints of chest pain. States the chest pain started yesterday while at rest, rated as a 10 out of 10 described as burning sensation without radiation. Admits to increased chest pain with just touching her chest. Patient also admits to having bilious vomit which she has had at least 2 episodes of since leaving the hospital last time. States her last bowel movement was 2 days ago and it was normal. Denies shortness of breath, palpitation, headache, fever, and lower extremity edema. Labs: WBC 5.6, hemoglobin 16.5, platelet count 276, PT 10.4, INR 0.9, sodium 139, potassium 4.6, chloride 93, BUN 56, creatinine 1.03, glucose 221, plasma lactic acid venous 1.6, calcium 11, magnesium 2.5, AST 38, ALT 249, troponin 0.027-->0.029 Imaging: - EKG done in the ER showed heart rate of 95 bpm, sinus rhythm, left atrial enlargement, left axis deviation is borderline, and QTc 4 and 50 - ER CXR: No acute cardiopulmonary process/disease 03/24: She is tolerating some PO diet today, she is not experiencing worstening chest pain. She did not vomit after eating. Wants to stay one more night to avoid readmission. REVIEW OF SYSTEMS: As stated above in HPI. The rest of the 14-point review of systems is negative. PHYSICAL EXAMINATION: GENERAL: The patient is alert and oriented x3, not in any acute distress. HEENT: Pupils are round and equally reacting to light. EOMI. No scleral icterus. No conjunctival pallor. Normocephalic, atraumatic. CARDIOVASCULAR: S1 and S2 present. No murmurs, rubs, or gallops. PULMONARY: Chest is clear to auscultation b/l, no wheezing or crackles. ABDOMEN: Soft, nontender, nondistended, normoactive bowel sounds. No palpable organomegaly. MUSCULOSKELETAL: No joint swelling or deformity. Reproducible chest pain upon palpation. EXTREMITIES: No cyanosis, clubbing, or pedal edema. NEUROLOGICAL: Gross neurological examination did not reveal any focal deficits. SKIN: No rashes. Assessment and Plan #Atypical chest pain: #History of atrial fibrillation #Systolic heart failure EF 25% #History of CAD with stent placement - Resume home cardiac medications including Eliquis, aspirin, Lipitor, Plavix, metoprolol, Entresto, Aldactone, and Lasix - Chest pain is reproducible upon palpation - Patient was recently worked up for similar issue, echo from 01/25/2025 shows an EF of 25% with global decrease in contractility #SIRS criteria: - Continue NS 75 cc/h - Blood cultures drawn - Patient received 1 dose of Rocephin 1 g in the ER, likely will discontinue Rocephin tomorrow if blood cultures come back negative. #Chronic gastroparesis - GI consulted, appreciate further recommendations - History of diabetes - Ordered Reglan 5 mg IVP Q6HR as needed - Discussed with patient potential need for gastric pacemaker which she is aware of as she follows with a GI outpatient #Diabetes: - Continue home Lantus 20 units SQ daily #Seizure disorder: - Resume home Keppra 500 mg p.o. daily DVT ppx: Eliquis 5 mg p.o. twice daily GI ppx: Protonix 40 mg IV daily CODE STATUS: Full code Dispo: Discharge Objective - Vital Signs Vital signs: Vital Signs Temp 98 F 03/24/25 07:50 Pulse 92 03/24/25 07:50 Resp 17 03/24/25 07:50 BP 137/86 03/24/25 07:50 Pulse Ox 97 03/24/25 07:50 FiO2 Intake & Output 03/23/25 03/24/25 03/24/25 18:59 06:59 18:59 Intake Total 240 Balance 240 Weight 58.06 kg Intake: Oral 240 Other: # Voids 2 - Labs CBC & Chem 7: 03/24/25 09:07 03/24/25 09:07 Labs: Abnormal Lab Results - Last 24 Hours (Table) 03/23/25 03/24/25 03/24/25 Range/Units 20:00 06:06 09:07 MCH 25.1 L (27.0-32.0) pg MCHC 31.1 L (32.0-37.0) g/dL RDW 18.4 H (11.5-14.5) % MPV 9.3 L (9.5-12.2) fL Sodium (137-145) mmol/L BUN (7-17) mg/dL Glucose (74-99) mg/dL POC Glucose (mg/dL) 262 H 197 H (70-110) mg/dL AST (14-36) U/L Alkaline Phosphatase (38-126) U/L Total Protein (6.3-8.2) g/dL Albumin (3.5-5.0) g/dL 03/24/25 03/24/25 Range/Units 09:07 12:08 MCH (27.0-32.0) pg MCHC (32.0-37.0) g/dL RDW (11.5-14.5) % MPV (9.5-12.2) fL Sodium 131 L (137-145) mmol/L BUN 28 H (7-17) mg/dL Glucose 285 H (74-99) mg/dL POC Glucose (mg/dL) 309 H (70-110) mg/dL AST 42 H (14-36) U/L Alkaline Phosphatase 166 H (38-126) U/L Total Protein 5.9 L (6.3-8.2) g/dL Albumin 3.1 L (3.5-5.0) g/dL Microbiology - Last 24 Hours (Table) 03/22/25 16:10 Blood Culture - Preliminary Blood
[2025-03-24 17:14] LABS: Glucose,Whole Blood 282 mg/dL (70-110)
[2025-03-24 20:41] LABS: Glucose,Whole Blood 296 mg/dL (70-110)
[2025-03-25 06:25] LABS: Glucose,Whole Blood 222 mg/dL (70-110)
[2025-03-25 07:33] VITALS: BP 123/80; PULSE 91; RESP 14; TEMP 98.3
[2025-03-25 12:47] LABS: Glucose,Whole Blood 270 mg/dL (70-110)
== END 2025-03-25 15:17 | disposition home or self-care (01) ==
LOC: EC 13:56 → 6NMEDSUR 18:57
PROVIDERS: ADMIT Hospitalist; ATTEND Hospitalist
DX: R07.89 Other chest pain (principal); E11.43 Type 2 diabetes mellitus with diabetic autonomic (poly)neuropathy; K31.84 Gastroparesis; G40.909 Epilepsy, unspecified, not intractable, without status epilepticus; I50.22 Chronic systolic (congestive) heart failure; I69.998 Other sequelae following unspecified cerebrovascular disease; H54.7 Unspecified visual loss; I25.10 Atherosclerotic heart disease of native coronary artery without angina pectoris; I48.91 Unspecified atrial fibrillation; Z88.0 Allergy status to penicillin; Z88.5 Allergy status to narcotic agent; Z88.2 Allergy status to sulfonamides; Z79.01 Long term (current) use of anticoagulants; Z79.899 Other long term (current) drug therapy; Z79.51 Long term (current) use of inhaled steroids; Z79.82 Long term (current) use of aspirin; Z79.02 Long term (current) use of antithrombotics/antiplatelets; Z79.4 Long term (current) use of insulin; Z86.718 Personal history of other venous thrombosis and embolism; Z95.5 Presence of coronary angioplasty implant and graft
CPT/HCPCS: 96376 ×5; 96361 ×4; 96374; 96375; 99285; 36415; 94640 ×2; 93005; 80053 ×3; 83605; 83690; 83735; 84484 ×2; 85025; 85027 ×2; 85610; 85730; 81001; 87040; 87086; 71046; G0378 ×4; J2765 ×3; J2405 ×4; J0696; J1171 ×5; J2470 ×4; J1308 ×4

== ENCOUNTER 2025-03-28 18:45 | Emergency (ER) | payer OTHER ==
[2025-03-28] MEDS: METOCLOPRAMIDE 5 MG/ML 2 ML VIAL IVP STA (19:53)
[2025-03-28] MEDS: HYDROmorphone 1 MG/ML 1 ML SYRINGE IVP STA ×2 (19:57→22:31)
[2025-03-28] MEDS: SODIUM CHLORIDE 0.9% 1,000 ML IV STA (19:57)
--- NOTE | 2025-03-28 19:58 | XR ---
EXAMINATION TYPE: XR chest 2V DATE OF EXAM: 03/28/2025 7:39 PM COMPARISON: Chest radiographs from 03/22/2025. CLINICAL INDICATION: Female, 45 years old with history of Chest Pain; [facility] TECHNIQUE: XR chest 2V Frontal and lateral views of the chest. FINDINGS: Lungs/Pleura: There is no evidence of pleural effusion, focal consolidation, or pneumothorax. Pulmonary vascularity: Unremarkable. Heart/mediastinum: Cardiomediastinal silhouette is unremarkable. Musculoskeletal: No acute osseous pathology. IMPRESSION: No acute cardiopulmonary disease/process. [facility], , 03/28/2025 7:56 PM
[2025-03-28] MEDS: diphenhydrAMINE 50 MG/ML 1 ML VIAL IVP STA (19:59)
[2025-03-28 20:18] LABS: Basophils # (A) 0.06 10*3/uL (0.00-0.10); Basophils % (A) 0.8 %; Eosinophils # (A) 0.14 10*3/uL (0.04-0.35); Eosinophils % (A) 1.8 %; HCT 46.0 % (37.2-46.3); HGB 14.9 g/dL (12.0-15.0); Lymphocytes # (A) 0.88 10*3/uL (0.90-5.00); Lymphocytes % (A) 11.2 %; MCH 25.3 pg (27.0-32.0); MCHC 32.4 g/dL (32.0-37.0); MCV 78.0 fL (80.0-97.0); Monocytes # (A) 0.35 10*3/uL (0.20-1.00); Monocytes % (A) 4.5 %; Neutrophils # (A) 6.39 10*3/uL (1.80-7.70); Neutrophils % (A) 81.4 %; Platelet Count 349 10*3/uL (140-440); RBC 5.90 10*6/uL (4.10-5.20); RDW 18.4 % (11.5-14.5); WBC 7.84 10*3/uL (4.50-10.00)
[2025-03-28 20:28] LABS: INR 0.9 (<1.2); Partial Thromboplastin Time 22.0 sec (22.0-30.0); Prothrombin Time 10.1 sec (10.0-12.5)
[2025-03-28 20:33] LABS: ALT 28 U/L (4-34); AST 28 U/L (14-36); African American GFR (CKD) >90 (>60 ml/min/1.73 sqM); Albumin 3.7 g/dL (3.5-5.0); Alkaline Phosphatase 173 U/L (38-126); Anion Gap 8 mmol/L; Blood Urea Nitrogen 40 mg/dL (7-17); Calcium 10.8 mg/dL (8.4-10.2); Carbon Dioxide 30 mmol/L (22-30); Chloride 94 mmol/L (98-107); Glucose 314 mg/dL (74-99); Lipase 322 U/L (23-300); Magnesium 2.0 mg/dL (1.6-2.3); Non-African American GFR(CKD) >90 (>60 ml/min/1.73 sqM); Potassium 5.0 mmol/L (3.5-5.1); Sodium 132 mmol/L (137-145); Total Protein 7.1 g/dL (6.3-8.2)
[2025-03-28 20:40] LABS: NT-Pro-B-Type Natriuretic Pept 7970 pg/mL
[2025-03-28 22:10] VITALS: BP 118/81; PULSE 110; RESP 17
--- NOTE | 2025-03-28 22:19 | ED ---
General Adult HPI - General Chief complaint: Nausea/Vomiting/Diarrhea Stated complaint: Nausea,Vomiting,Chest pains Time Seen by Provider: 03/28/25 18:54 Source: patient Mode of arrival: wheelchair Limitations: no limitations - History of Present Illness Initial comments: 45-year-old female with past medical history of diabetic gastroparesis, congestive heart failure who presents emergency department with nausea, vomiting and chest pain. Daughter at bedside helps provide the history. States that the patient has had recurrent symptoms of nausea, vomiting and chest pain for the past several months. She recently had a heart cath with stent placement on February 19. States that she will intermittently have chest pressure with some shortness of breath. Patient also admits to vomiting. Took a Zofran this morning without any relief in her symptoms. She is scheduled for another heart cath on with Dr. Fam to ensure that her stents are staying open. She denies fevers, chills or cough. Admits to chronic generalized abdominal pain. No changes in her bowel or bladder habits. No other alleviating, precipitating modifying fac tors - Related Data Home Medications Medication Instructions Recorded Confirmed HYDROcodone/APAP 10-325MG [[place] 1 tab PO TID PRN 01/14/18 03/22/25 10-325] levETIRAcetam [Keppra] 500 mg PO DAILY 08/29/23 03/22/25 Albuterol Nebulized [Ventolin 2.5 mg INHALATION RT-QID PRN 11/04/24 03/22/25 Nebulized] Apixaban [Eliquis] 5 mg PO BID 11/04/24 03/22/25 Budesonide/Formoterol Fumarate 2 puff INHALATION RT-DAILY 11/04/24 03/22/25 [Symbicort 160-4.5 Mcg Inhaler] Pantoprazole [Protonix] 40 mg PO DAILY 12/21/24 03/22/25 Naproxen [Naprosyn] 500 mg PO BID PRN 12/31/24 03/22/25 Sacubitril/Valsartan [Entresto 24 1 tab PO BID 02/24/25 03/22/25 mg-26 mg Tablet] Clopidogrel [Plavix] 75 mg PO DAILY 03/01/25 03/22/25 Insulin Glargine,Hum.rec.anlog 20 units SQ DAILY 03/01/25 03/22/25 [Lantus Solostar Pen] Pregabalin [Lyrica] 50 mg PO BID 03/06/25 03/22/25 Cyclobenzaprine [Flexeril] 20 mg PO HS 03/18/25 03/22/25 Furosemide [Lasix] 40 mg PO DAILY 03/18/25 03/22/25 Loratadine 10 mg PO DAILY 03/18/25 03/22/25 Rosuvastatin [Crestor] 20 mg PO HS 03/18/25 03/22/25 Previous Rx's Medication Instructions Recorded Aspirin 81 mg PO DAILY #30 tab 01/29/25 Metoprolol Succinate (ER) [Toprol 50 mg PO DAILY 90 Days #90 tab 02/20/25 XL] Spironolactone [Aldactone] 25 mg PO DAILY #30 tab 02/20/25 Ondansetron Odt [Zofran ODT] 4 mg PO TID PRN #20 tab 02/27/25 Metoclopramide [Reglan] 5 mg PO TID #20 tab 03/22/25 Pantoprazole [Protonix] 40 mg PO DAILY 14 Days #14 tab 03/25/25 Allergies Allergy/AdvReac Type Severity Reaction Status Date / Time Penicillins Allergy Nausea & Verified 03/22/25 17:18 Vomiting, rash codeine AdvReac Nausea & Verified 03/22/25 17:18 Vomiting morphine AdvReac Nausea & Verified 03/22/25 17:18 Vomiting Sulfa (Sulfonamide AdvReac Nausea & Verified 03/22/25 17:19 Antibiotics) Vomiting, rash tramadol AdvReac Per Verified 03/22/25 17:18 patient, cannot take with Keppra Review of Systems ROS Statement: Those systems with pertinent positive or pertinent negative responses have been documented in the HPI. ROS Other: All systems not noted in ROS Statement are negative. Past Medical History Past Medical History: Asthma, Heart Failure, CVA/TIA, Diabetes Mellitus, Deep Vein Thrombosis (DVT), GI Bleed, Pneumonia, Seizure Disorder Additional Past Medical History / Comment(s): bilateral pleural effusion, 10/05 24 bilateral hip and ankle bursitis, 3 discs in lower back deteroitrating and 2 bulging. CVA with vision impairment. DVT bilateral legs. History of Any Multi-Drug Resistant Organisms: None Reported, MRSA Date of last positivie culture/infection: 2011 MDRO Source:: Lungs Past Surgical History: Section, Cholecystectomy, Heart Catheterization With Stent, Tubal Ligation Additional Past Surgical History / Comment(s): Colonoscopies, right groin mole remove, kidney stones surgically removed, bilateral cataracts removed, glaucoma surgery, bilateral retinal surgery for bleeding, bilateral thoracentesis, Heart Cath with 2 stents Past Anesthesia/Blood Transfusion Reactions: No Reported Reaction Date of Last Stent Placement:: 02/19/25 Past Psychological History: Anxiety Smoking Status: Never smoker Past Alcohol Use History: None Reported Past Drug Use History: None Reported - Past Family History Father Family Medical History: Cancer, Diabetes Mellitus Additional Family Medical History / Comment(s): COLON CANCER, MELANOMA ON HIS CHEST AND HE ALSO HAS BENIGN BRAIN TUMORS X2, pancreatic cancer. Mother Family Medical History: Cancer, Diabetes Mellitus, Dialysis, Myocardial Infarction (KS) Additional Family Medical History / Comment(s): MELANOMA THAT METASTASIZED TO THE BRAIN- AT AGE 49. Mother had an KS at age 34 with angioplasty at age 36 yrs and another KS, and history of diabetes. Patient has many aunts, uncles and nieces with diabetes on her mother's side. Brother(s) Family Medical History: Cancer Additional Family Medical History / Comment(s): Patient has one half-brother with kidney stones, full brother with no major medical problems. Patient has 1 sister with no major medical problems. Daughter(s) Family Medical History: Seizure Disorder Additional Family Medical History / Comment(s): Patient has 2 daughters and her youngest daughter has history of seizure disorder. Patient has one son with no major medical problems. General Exam Limitations: no limitations General appearance: alert, in no apparent distress Head exam: Present: atraumatic, normocephalic, normal inspection Eye exam: Present: normal appearance, PERRL, EOMI. Absent: scleral icterus, conjunctival injection, periorbital swelling ENT exam: Present: normal exam, mucous membranes moist Neck exam: Present: normal inspection. Absent: tenderness, meningismus, lymphadenopathy Respiratory exam: Present: normal lung sounds bilaterally. Absent: respiratory distress, wheezes, rales, rhonchi, stridor Cardiovascular Exam: Present: normal rhythm, tachycardia, normal heart sounds. Absent: systolic murmur, diastolic murmur, rubs, gallop, clicks GI/Abdominal exam: Present: soft, normal bowel sounds. Absent: distended, tenderness, guarding, rebound, rigid Extremities exam: Present: normal inspection, full ROM, normal capillary refill. Absent: tenderness, pedal edema, joint swelling, calf tenderness Back exam: Present: normal inspection Neurological exam: Present: alert, oriented X3, CN II-XII intact Psychiatric exam: Present: normal affect, normal mood Skin exam: Present: warm, dry, intact, normal color. Absent: rash Course Vital Signs 03/28/25 03/28/25 03/28/25 18:46 22:09 22:37 Temperature 98.3 F 98.1 F 98.7 F Pulse Rate 118 H 110 H 110 H Respiratory 18 17 17 Rate Blood Pressure 88/50 118/81 118/81 O2 Sat by Pulse 96 96 96 Oximetry Medical Decision Making - Medical Decision Making Was pt. sent in by a medical professional or institution (, PA, CORRECTIONAL SERGEANT, urgent care, hospital, or retirement...) When possible be specific @ -No Did you speak to anyone other than the patient for history (EMS, parent, family, police, friend...)? What history was obtained from this source @ -Spoke with the daughter for history Did you review nursing and triage notes (agree or disagree)? Why? @ -I reviewed and agree with nursing and triage notes Were old charts reviewed (outside hosp., previous admission, EMS record, old EKG, old radiological studies, urgent care reports/EKG's, retirement records)? Report findings @ -Reviewed the heart cath report from February 19 Differential Diagnosis (chest pain, altered mental status, abdominal pain women, abdominal pain men, vaginal bleeding, weakness, fever, dyspnea, syncope, headache, dizziness, GI bleed, back pain, seizure, CVA, palpatations, mental health, musculoskeletal)? @ -Differential Chest Pain: Stable Angina, Unstable Angina, STEMI, NSTEMI Aortic Dissection, Pneumothorax, Musculoskeletal, Esophageal Spasm GERD, Cholecystitis, Pancreatitis, Zoster, this is not meant to be an all-inclusive list. EKG interpreted by me (3pts min.). @ -yes and demonstrates sinus tachycardia with a rate of 119. MO interval 139. QRS 72. QTc of 385. No acute ST segment elevations or depressions X-rays interpreted by me (1pt min.). @Yes which demonstrates no acute process CT interpreted by me (1pt min.). @ -None done U/S interpreted by me (1pt. min.). @ -None done What testing was considered but not performed or refused? (CT, X-rays, U/S, labs)? Why? @ -Echo however patient refused to be admitted What meds were considered but not given or refused? Why? @ -None Did you discuss the management of the patient with other professionals (professionals i.e. , PA, CORRECTIONAL SERGEANT, lab, RT, psych nurse, social work supervisor, commercial parts professional, teacher, custom protection officer, hospice case manager)? Give summary @ -No Was smoking cessation discussed for >3mins.? @ -No Was critical care preformed (if so, how long)? @ -No Were there social determinants of health that impacted care today? How? (Homelessness, low income, unemployed, alcoholism, drug addiction, transportation, low edu. Level, literacy, decrease access to med. care, [facility], rehab)? @ -No Was there de-escalation of care discussed even if they declined (Discuss DNR or withdrawal of care, Hospice)? DNR status @ -No What co-morbidities impacted this encounter? (DM, HTN, Smoking, COPD, CAD, Canc er, CVA, ARF, Chemo, Hep., AIDS, mental health diagnosis, sleep apnea, morbid obesity)? @ -Congestive heart failure, diabetes Was patient admitted / discharged? Hospital course, mention meds given and route, prescriptions, significant lab abnormalities, going to OR and other pertinent info. @ -Upon arrival patient seen and evaluated in hallway 20. Thorough history and physical exam was performed. Patient placed on continuous pulse ox and cardiac monitoring. Twelve-lead EKG is obtained. Laboratory studies are conducted. Chest x-ray was performed. Patient did receive Dilaudid and Zofran as well as some IV fluids. I did review the results with the patient. Recommended admission due to her significant cardiac history however patient refused and wanted to go home. She is aware of the risks of leaving without further workup to include permanent disability and even . Patient wants to follow-up with her orderlies teacher on . Instructed that she absolutely needs to keep th is appointment. Return to the emergency department for any new or worsening symptoms. Patient agreeable plan was discharged in stable condition Undiagnosed new problem with uncertain prognosis? @ -No Drug Therapy requiring intensive monitoring for toxicity (Heparin, Nitro, Insulin, Cardizem)? @ -No Were any procedures done? @ -No Diagnosis/symptom? @ -Acute nausea vomiting, history of diabetic gastroparesis, acute chest pain, history of atherosclerotic coronary artery disease Acute, or Chronic, or Acute on Chronic? @ -Acute on chronic Uncomplicated (without systemic symptoms) or Complicated (systemic symptoms)? @ -Complicated Side effects of treatment? @ -No Exacerbation, Progression, or Severe Exacerbation? @ -yes Poses a threat to life or bodily function? How? (Chest pain, [place], [place], pneumonia, PE, COPD, DKA, ARF, appy, cholecystitis, CVA, Diverticulitis, Homicidal, Suicidal, threat to staff... and all critical care pts) @ -No - Lab Data Result diagrams: 03/28/25 19:53 03/28/25 19:53 Lab Results 03/28/25 03/28/25 03/28/25 Range/Units 19:53 19:53 19:53 WBC 7.84 (4.50-10.00) 10*3/uL RBC 5.90 H (4.10-5.20) 10*6/uL Hgb 14.9 (12.0-15.0) g/dL Hct 46.0 (37.2-46.3) % MCV 78.0 L (80.0-97.0) fL MCH 25.3 L (27.0-32.0) pg MCHC 32.4 (32.0-37.0) g/dL Plt Count 349 (140-440) 10*3/uL MPV 9.9 (9.5-12.2) fL Immature Gran % (Auto) 0.3 % Neutrophils % 81.4 % Lymphocytes % 11.2 % Monocytes % 4.5 % Eosinophils % 1.8 % Basophils % 0.8 % Immature Gran # 0.02 (0.00-0.04) 10*3/uL Neutrophils # 6.39 (1.80-7.70) 10*3/uL Lymphocytes # 0.88 L (0.90-5.00) 10*3/uL Monocytes # 0.35 (0.20-1.00) 10*3/uL Eosinophils # 0.14 (0.04-0.35) 10*3/uL Basophils # 0.06 (0.00-0.10) 10*3/uL PT 10.1 (10.0-12.5) sec INR 0.9 (<1.2) APTT 22.0 (22.0-30.0) sec Sodium 132 L (137-145) mmol/L Potassium 5.0 (3.5-5.1) mmol/L Chloride 94 L (98-107) mmol/L Carbon Dioxide 30 (22-30) mmol/L Anion Gap 8 mmol/L BUN 40 H (7-17) mg/dL Creatinine 0.69 (0.52-1.04) mg/dL Est GFR (CKD-EPI)AfAm >90 (>60 ml/min/1.73 sqM) Est GFR (CKD-EPI)NonAf >90 (>60 ml/min/1.73 sqM) Glucose 314 H (74-99) mg/dL Calcium 10.8 H (8.4-10.2) mg/dL Magnesium 2.0 (1.6-2.3) mg/dL Total Bilirubin 0.5 (0.2-1.3) mg/dL AST 28 (14-36) U/L ALT 28 (4-34) U/L Alkaline Phosphatase 173 H (38-126) U/L Troponin I (0.000-0.034) ng/mL NT-Pro-B Natriuret Pep 7970 pg/mL Total Protein 7.1 (6.3-8.2) g/dL Albumin 3.7 (3.5-5.0) g/dL Lipase 322 H (23-300) U/L 03/28/25 Range/Units 19:53 WBC (4.50-10.00) 10*3/uL RBC (4.10-5.20) 10*6/uL Hgb (12.0-15.0) g/dL Hct (37.2-46.3) % MCV (80.0-97.0) fL MCH (27.0-32.0) pg MCHC (32.0-37.0) g/dL Plt Count (140-440) 10*3/uL MPV (9.5-12.2) fL Immature Gran % (Auto) % Neutrophils % % Lymphocytes % % Monocytes % % Eosinophils % % Basophils % % Immature Gran # (0.00-0.04) 10*3/uL Neutrophils # (1.80-7.70) 10*3/uL Lymphocytes # (0.90-5.00) 10*3/uL Monocytes # (0.20-1.00) 10*3/uL Eosinophils # (0.04-0.35) 10*3/uL Basophils # (0.00-0.10) 10*3/uL PT (10.0-12.5) sec INR (<1.2) APTT (22.0-30.0) sec Sodium (137-145) mmol/L Potassium (3.5-5.1) mmol/L Chloride (98-107) mmol/L Carbon Dioxide (22-30) mmol/L Anion Gap mmol/L BUN (7-17) mg/dL Creatinine (0.52-1.04) mg/dL Est GFR (CKD-EPI)AfAm (>60 ml/min/1.73 sqM) Est GFR (CKD-EPI)NonAf (>60 ml/min/1.73 sqM) Glucose (74-99) mg/dL Calcium (8.4-10.2) mg/dL Magnesium (1.6-2.3) mg/dL Total Bilirubin (0.2-1.3) mg/dL AST (14-36) U/L ALT (4-34) U/L Alkaline Phosphatase (38-126) U/L Troponin I 0.026 (0.000-0.034) ng/mL NT-Pro-B Natriuret Pep pg/mL Total Protein (6.3-8.2) g/dL Albumin (3.5-5.0) g/dL Lipase (23-300) U/L Disposition Clinical Impression: Chest pain, Gastroparesis, Acute vomiting Disposition: HOME SELF-CARE Condition: Stable Instructions (If sedation given, give patient instructions): Acute Nausea and Vomiting (ED) Additional Instructions: Please follow-up with the orderlies teacher on at your scheduled procedure. Return for any new or worsening symptoms Is patient prescribed a controlled substance at d/c from ED?: No Referrals: Bee Olguin III, MD [Primary Care Provider] - 1-2 days Ron Piedra MD [STAFF PHYSICIAN] - 1-2 days Time of Disposition: 22:19
[2025-03-28] MEDS: ONDANSETRON 4 MG/2 ML VIAL IVP STA (22:31)
[2025-03-28 22:45] VITALS: TEMP 98.7
== END 2025-03-28 22:45 | disposition home or self-care (01) ==
LOC: EC 18:45
DX: R07.9 Chest pain, unspecified (principal); K31.84 Gastroparesis; R11.2 Nausea with vomiting, unspecified; I25.10 Atherosclerotic heart disease of native coronary artery without angina pectoris; I50.9 Heart failure, unspecified; E11.9 Type 2 diabetes mellitus without complications; Z86.73 Personal history of transient ischemic attack (TIA), and cerebral infarction without residual deficits; Z88.0 Allergy status to penicillin; Z88.1 Allergy status to other antibiotic agents; Z88.2 Allergy status to sulfonamides; Z88.5 Allergy status to narcotic agent; Z88.8 Allergy status to other drugs, medicaments and biological substances
CPT/HCPCS: 36415; 93005; 83880; 80053; 83690; 83735; 84484; 85025; 85610; 85730; 71046; 99284; 96374; 96375; 96376; 96361; J1200; J2765; J2405; J1171

== ENCOUNTER 2025-04-02 09:44 | Day surgery (SDC) | payer OTHER ==
[~2025-04-02 09:44] MED LIST changes: +HEPARIN SODIUM,PORCINE (1 ML) 2,500 UNIT in SODIUM CHLORIDE 0.9% 250 ML IRRIGATION PRN; +HEPARIN SODIUM,PORCINE 10,000 UNIT in SODIUM CHLORIDE 0.9% 1,000 ML IRRIGATION PRN
[2025-04-02] MEDS: SODIUM CHLORIDE 0.9% 1,000 ML in EMPTY BAG 1 BAG IV SCH (11:15)
[2025-04-02 11:25] LABS: Glucose,Whole Blood 333 mg/dL (70-110)
[2025-04-02] MEDS: ASPIRIN 325 MG TAB PO STA (11:26)
[2025-04-02] MEDS: ATORVASTATIN 80 MG TAB PO STA (11:27)
[2025-04-02] MEDS: INSULIN LISPRO (HumaLOG) 100 UNIT/ML 10 mL VL SQ ONE (11:37)
[2025-04-02] MEDS: MIDAZOLAM 2 MG/2 ML VIAL IVP ONE (14:00)
[2025-04-02] MEDS: fentaNYL (PF) 50 MCG/ML 2 ML AMP IVP ONE (14:00)
[2025-04-02] MEDS: LIDOCAINE 1% INJ 10MG/ML (20 ML MDV) SQ ONE (14:03)
[2025-04-02] MEDS: VERAPAMIL SYRINGE (5 MG/10 ML) INTRAARTER ONE (14:03)
[2025-04-02] MEDS: HEPARIN SODIUM 1,000 UN/ML (10ML VL) IVP ONE (14:10)
[2025-04-02] MEDS: IV FLUID CONTINUATION 1,000 ML IV ONE (14:12)
[2025-04-02] MEDS: NITROGLYCERIN 1000MCG/10ML SYRINGE INTRACORON ONE ×2 (14:43→14:54)
[2025-04-02] MEDS: IOPAMIDOL-370 100ML BTL INJ ONE ×2 (14:55)
[2025-04-02] MEDS: HEPARIN SODIUM,PORCINE 10,000 UNIT in SODIUM CHLORIDE 0.9% 1,000 ML IRRIGATION ONE (15:03)
[2025-04-02] MEDS: HEPARIN SODIUM,PORCINE (1 ML) 2,500 UNIT in SODIUM CHLORIDE 0.9% 250 ML IRRIGATION ONE (15:03)
[2025-04-02] MEDS ORDERED: ONDANSETRON ODT 4 MG TAB PO PRN (15:10)
[2025-04-02] MEDS ORDERED: NAPROXEN 250 MG TAB PO PRN (15:10)
[2025-04-02] MEDS ORDERED: RX INFO: IV CONTRAST WAS GIVEN 1 EACH MISC MISCELLANE PRN (15:15)
[2025-04-02] MEDS ORDERED: MAG HYDROX/AL HYDROX/SIMETH 30 ML CUP PO PRN (15:15)
[2025-04-02] MEDS ORDERED: ZOLPIDEM 5 MG TAB PO PRN (15:15)
[2025-04-02] MEDS ORDERED: ATROPINE SULFATE 0.1 MG/ML 10ML SYRINGE IV PRN (15:15)
[2025-04-02 15:21] LABS: Glucose,Whole Blood 100 mg/dL (70-110)
[2025-04-02 17:12] LABS: Glucose,Whole Blood 210 mg/dL (70-110)
--- NOTE | 2025-04-02 17:20 | P.PCN ---
Date of Procedure: 04/02/25 Operative Findings: PERCUTANEOUS CORONARY INTERVENTION Performing physician Ron Piedra M.D. Procedure Performed: 1. Successful stenting of the mid and distal LAD using 3.5 x 12 and 2.25 x 33 mm Xience drug-eluting stent with an excellent angiographic results. 2. Adjunctive use of IVUS and IFR 3. Selective right and left coronary angiogram 4. Ultrasound-guided access of the right radial artery Indication: Symptomatic 45-year-old female patient with extensive history of CAD. Please refer to prior heart catheterization and PCI for more details Approach: Right radial artery Complications: None Level of Sedation: Moderate with a sedation length of 52 minutes Procedure Discussion: After obtaining informed consent the patient was brought to the cardiac Water Pump Assembler. The right radial artery was cannulated using micropuncture technique under ultrasound guidance a micropuncture wire passed easily then I placed a 6 [place] 11 cm sheath at the right radial artery. Subsequently anticoagulation with heparin was initiated with continuous ACT monitoring throughout the case. I decided to pursue with initially with FFR of the RCA. After zeroing the Doppler wire and equalized in between Doppler wire and the guiding catheter which was a JR4 guiding catheter the RCA was engaged and subsequently wired with FFR came to be at 0.94. After that I decided to do an IFR of the left circumflex. Again I did normalize between the Doppler wire and guiding catheter which was JL 3.5 guiding catheter. Subsequently the left main was engaged and the left circumflex was wired with IFR came to be at 0.94 as well. Then I did an IFR of the LAD where the LAD was noted to have intermediate to severe lesion distal to the stented segment and IFR of the LAD came in to be at 0.69. At that point I decided to intervene on the LAD. Anticoagulation continued using heparin. The patient was already on antiplatelet. I did wire the LAD using a eleanor wire with a run-through wire in addition to the Doppler wire. IVUS was performed and showed a diameter around 2 mm. After that I did predilatation using 2 mm balloon before I deployed a 2.25 x 33 mm stent and then an angiogram was performed showed an area in between the stent previously and stent from today appeared to be hazy. I decided to cover that with a stent. Before that I postdilated the stent using 2.5 mm NC balloon. Then I did deploy a 3.5 x 12 mm stent and that was connecting the first stent and second stents. Final angiogram showed excellent angiographic results and the procedure was completed with no complication. Selective coronary angiogram: The RCA has intermediate lesion appeared to be in the range of 50 to 60%. Documented to be nonflow limiting by Doppler wire as described above The left main appeared to be angiographically normal. The left circumflex is a medium caliber vessel nondominant vessel with intermediate lesion also appears to be nonflow limiting by Doppler where hide above The LAD is stented in the proximal and midportion and the stents are patent. There is an area in the distal LAD appears to be in the range of 70 or 80% documented to be flow-limiting by Doppler wire. I did stent that area as above Conclusion Patent stent in the proximal and mid LAD with severe disease involving the distal LAD. I did perform successful PCI of the LAD as described above Intermediate disease involving the LCx with a negative IFR Intermediate disease involving the RCA with negative IFR as well Postprocedure Management: 1. Continue dual antiplatelet therapy 2. Risk factors modification 3. Follow-up with the patient
[2025-04-02] MEDS: SPIRONOLACTONE 25 MG TAB PO STA (17:30)
[2025-04-02] MEDS: METOPROLOL SUCCINATE (ER) 50 MG TAB.ER.24H PO STA (17:31)
[2025-04-02 18:09] VITALS: TEMP 97.8
[2025-04-02 20:27] LABS: Glucose,Whole Blood 352 mg/dL (70-110)
[2025-04-02] MEDS: HYDROcodone/APAP 10-325MG 1 EACH TAB PO PRN (20:34)
[2025-04-02] MEDS: PREGABALIN 50 MG CAP PO SCH (20:35)
[2025-04-02] MEDS: CYCLOBENZAPRINE 10 MG TAB PO SCH (20:35)
[2025-04-02] MEDS: ATORVASTATIN 40 MG TAB PO SCH (20:35)
[2025-04-02] MEDS: ALBUTEROL NEBULIZED 2.5 MG/3 ML INHALATION PRN (20:40)
[2025-04-03 05:46] LABS: Glucose,Whole Blood 287 mg/dL (70-110)
[2025-04-03] MEDS: PANTOPRAZOLE 40 MG TABLET PO SCH (06:33)
[2025-04-03 07:44] VITALS: BP 163/93; PULSE 95; RESP 15
[2025-04-03 07:51] LABS: Basophils # (A) 0.04 10*3/uL (0.00-0.10); Basophils % (A) 0.6 %; Eosinophils # (A) 0.20 10*3/uL (0.04-0.35); Eosinophils % (A) 3.0 %; HCT 35.4 % (37.2-46.3); Lymphocytes # (A) 0.98 10*3/uL (0.90-5.00); Lymphocytes % (A) 14.7 %; MCH 26.3 pg (27.0-32.0); MCHC 33.1 g/dL (32.0-37.0); MCV 79.6 fL (80.0-97.0); Monocytes # (A) 0.55 10*3/uL (0.20-1.00); Monocytes % (A) 8.3 %; Neutrophils # (A) 4.87 10*3/uL (1.80-7.70); Neutrophils % (A) 73.2 %; Platelet Count 197 10*3/uL (140-440); RBC 4.45 10*6/uL (4.10-5.20); RDW 17.1 % (11.5-14.5); WBC 6.65 10*3/uL (4.50-10.00)
[2025-04-03] MEDS: SYMBICORT 160-4.5 MCG INHALER INHALATION SCH (07:51)
[2025-04-03 07:53] LABS: HGB 11.7 g/dL (12.0-15.0)
[2025-04-03 07:58] LABS: African American GFR (CKD) >90 (>60 ml/min/1.73 sqM); Anion Gap 3 mmol/L; Blood Urea Nitrogen 25 mg/dL (7-17); Calcium 9.4 mg/dL (8.4-10.2); Carbon Dioxide 28 mmol/L (22-30); Chloride 99 mmol/L (98-107); Glucose 302 mg/dL (74-99); Non-African American GFR(CKD) >90 (>60 ml/min/1.73 sqM); Potassium 4.8 mmol/L (3.5-5.1); Sodium 130 mmol/L (137-145)
[2025-04-03] MEDS: ASPIRIN 81 MG PO SCH (08:10)
[2025-04-03] MEDS: CLOPIDOGREL 75 MG TAB PO SCH (08:10)
[2025-04-03] MEDS: APIXABAN 5 MG TAB PO SCH (08:11)
[2025-04-03] MEDS: METOPROLOL SUCCINATE (ER) 50 MG TAB.ER.24H PO SCH (08:11)
[2025-04-03] MEDS: SPIRONOLACTONE 25 MG TAB PO SCH (08:12)
[2025-04-03] MEDS: LORATADINE 10 MG TAB PO SCH (08:12)
[2025-04-03] MEDS: FUROSEMIDE 40 MG TAB PO SCH (08:12)
[2025-04-03] MEDS: levETIRAcetam 500 MG TAB PO SCH (08:12)
[2025-04-03] MEDS: INSULIN GLARGINE (LANTUS) 100 UNIT/ML SYR SQ SCH (08:13)
--- NOTE | 2025-04-05 08:27 | P.DS ---
Providers Attending physician: Ron Piedra Consults: 04/02/25 15:15 Consult Physician Routine Consulting Provider: [facility] Consult Reason/Comments: Post Interventional patient Do you want consulting provider notified?: Already Contacted Primary care physician: Bee Shaffer [facility] Course: The patient is a pleasant 45-year-old female patient who underwent PCI of the LAD last Saturday with a good angiographic results and with no complication The patient was seen and evaluated this morning. She is hemodynamically stable. The right radial artery is soft and nontender with no bruises. The patient is going to be discharged home on dual antiplatelet therapy and follow-up with Dr. Silverio next week in the office Patient Condition at Discharge: Good Plan - Discharge Summary Discharge Rx Participant: No New Discharge Prescriptions: Continue HYDROcodone/APAP 10-325MG [[place] 10-325] 1 tab PO TID PRN PRN Reason: Pain levETIRAcetam [Keppra] 500 mg PO DAILY Albuterol Nebulized [Ventolin Nebulized] 2.5 mg INHALATION RT-QID PRN PRN Reason: Shortness Of Breath Apixaban [Eliquis] 5 mg PO BID Naproxen [Naprosyn] 500 mg PO BID PRN PRN Reason: Pain Metoprolol Succinate (ER) [Toprol XL] 50 mg PO DAILY 90 Days #90 tab Spironolactone [Aldactone] 25 mg PO DAILY #30 tab Ondansetron Odt [Zofran ODT] 4 mg PO TID PRN #20 tab PRN Reason: Nausea Clopidogrel [Plavix] 75 mg PO DAILY Pregabalin [Lyrica] 50 mg PO BID Cyclobenzaprine [Flexeril] 20 mg PO HS Rosuvastatin [Crestor] 20 mg PO HS Budesonide/Formoterol Fumarate [Symbicort 160-4.5 Mcg Inhaler] 2 puff INHALATION RT-DAILY Aspirin 81 mg PO DAILY #30 tab Insulin Glargine,Hum.rec.anlog [Lantus Solostar Pen] 20 units SQ DAILY Furosemide [Lasix] 40 mg PO DAILY Loratadine 10 mg PO DAILY Pantoprazole [Protonix] 40 mg PO DAILY 14 Days #14 tab Discharge Medication List HYDROcodone/APAP 10-325MG [[place] 10-325] 1 tab PO TID PRN 01/14/18 [History] levETIRAcetam [Keppra] 500 mg PO DAILY 08/29/23 [History] Albuterol Nebulized [Ventolin Nebulized] 2.5 mg INHALATION RT-QID PRN 11/04/24 [History] Apixaban [Eliquis] 5 mg PO BID 11/04/24 [History] Budesonide/Formoterol Fumarate [Symbicort 160-4.5 Mcg Inhaler] 2 puff INHALATION RT-DAILY 11/04/24 [History] Naproxen [Naprosyn] 500 mg PO BID PRN 12/31/24 [History] Aspirin 81 mg PO DAILY #30 tab 01/29/25 [Rx] Metoprolol Succinate (ER) [Toprol XL] 50 mg PO DAILY 90 Days #90 tab 02/20/25 [Rx] Spironolactone [Aldactone] 25 mg PO DAILY #30 tab 02/20/25 [Rx] Ondansetron Odt [Zofran ODT] 4 mg PO TID PRN #20 tab 02/27/25 [Rx] Clopidogrel [Plavix] 75 mg PO DAILY 03/01/25 [History] Insulin Glargine,Hum.rec.anlog [Lantus Solostar Pen] 20 units SQ DAILY 03/01/25 [History] Pregabalin [Lyrica] 50 mg PO BID 03/06/25 [History] Cyclobenzaprine [Flexeril] 20 mg PO HS 03/18/25 [History] Furosemide [Lasix] 40 mg PO DAILY 03/18/25 [History] Loratadine 10 mg PO DAILY 03/18/25 [History] Rosuvastatin [Crestor] 20 mg PO HS 03/18/25 [History] Pantoprazole [Protonix] 40 mg PO DAILY 14 Days #14 tab 03/25/25 [Rx] Follow up Appointment(s)/Referral(s): Clayton Silverio MD [Medical Doctor] - 04/09/25 1:15 pm (FOLLOW UP APPOINTMENT MADE. ) Discharge Disposition: HOME SELF-CARE
== END 2025-04-03 08:33 | disposition home or self-care (01) ==
LOC: CATHCVL 09:44 → 6NMEDSUR 14:55 → CATHCVL 04-03 08:32
PROVIDERS: ATTEND Internal Medicine Interventional Cardiology
DX: I25.10 Atherosclerotic heart disease of native coronary artery without angina pectoris (principal); Z95.5 Presence of coronary angioplasty implant and graft; Z79.02 Long term (current) use of antithrombotics/antiplatelets; Z79.01 Long term (current) use of anticoagulants; Z79.82 Long term (current) use of aspirin; Z79.899 Other long term (current) drug therapy
CPT/HCPCS: 94640; 92978; 93799; 80048; 85025; 99152; 99153; C9600; C1769 ×4; C1887 ×2; C1894; C1753; C1874 ×2; C1725; J2250; J1644 ×3; J2003; J3010; Q9967; J2305

== ENCOUNTER 2025-04-07 12:47 | Inpatient (IN) | payer OTHER ==
[2025-04-07 13:49] LABS: Basophils # (A) 0.06 10*3/uL (0.00-0.10); Basophils % (A) 0.5 %; Eosinophils # (A) 0.17 10*3/uL (0.04-0.35); Eosinophils % (A) 1.5 %; HCT 34.0 % (37.2-46.3); HGB 11.4 g/dL (12.0-15.0); Lymphocytes # (A) 0.54 10*3/uL (0.90-5.00); Lymphocytes % (A) 4.8 %; MCH 26.5 pg (27.0-32.0); MCHC 33.5 g/dL (32.0-37.0); MCV 79.1 fL (80.0-97.0); Monocytes # (A) 0.61 10*3/uL (0.20-1.00); Monocytes % (A) 5.5 %; Neutrophils # (A) 9.73 10*3/uL (1.80-7.70); Neutrophils % (A) 87.3 %; Platelet Count 165 10*3/uL (140-440); RBC 4.30 10*6/uL (4.10-5.20); RDW 17.2 % (11.5-14.5); WBC 11.16 10*3/uL (4.50-10.00)
[2025-04-07 14:01] LABS: ALT 24 U/L (4-34); AST 30 U/L (14-36); African American GFR (CKD) >90 (>60 ml/min/1.73 sqM); Albumin 3.0 g/dL (3.5-5.0); Alkaline Phosphatase 145 U/L (38-126); Anion Gap 7 mmol/L; Blood Urea Nitrogen 37 mg/dL (7-17); Calcium 9.8 mg/dL (8.4-10.2); Carbon Dioxide 21 mmol/L (22-30); Chloride 98 mmol/L (98-107); Glucose 352 mg/dL (74-99); Lipase 128 U/L (23-300); Magnesium 1.8 mg/dL (1.6-2.3); Non-African American GFR(CKD) >90 (>60 ml/min/1.73 sqM); Potassium 5.0 mmol/L (3.5-5.1); Sodium 126 mmol/L (137-145); Total Protein 5.9 g/dL (6.3-8.2)
[2025-04-07 14:08] LABS: NT-Pro-B-Type Natriuretic Pept 2660 pg/mL
--- NOTE | 2025-04-07 14:26 | ED ---
Nausea/Vomiting/Diarrhea HPI - General Chief complaint: Nausea/Vomiting/Diarrhea Stated complaint: NVD Time Seen by Provider: 04/07/25 13:09 Source: patient, EMS, RN notes reviewed Mode of arrival: EMS Limitations: no limitations - History of Present Illness Initial comments: This is a 45-year-old female who presents to the emergency department for nausea and vomiting. States that it started 2 days ago. She has associated diarrhea. She has a history of diabetic gastroparesis which frequently flares up on her. Believes that it is flaring up on her at this time. She does usually get the most improvement from Zofran. However, she was given Zofran by EMS en route and that has not been effective. She has generalized abdominal pain, which she st ates always occurs with this. She did also just have a cardiac catheterization earlier this month with stent placement. Denies any current chest pain or shortness of breath. MD complaint: nausea, vomiting, diarrhea - Related Data Home Medications Medication Instructions Recorded Confirmed HYDROcodone/APAP 10-325MG [[place] 1 tab PO TID PRN 01/14/18 04/07/25 10-325] levETIRAcetam [Keppra] 500 mg PO DAILY 08/29/23 04/07/25 Albuterol Nebulized [Ventolin 2.5 mg INHALATION RT-QID PRN 11/04/24 04/07/25 Nebulized] Apixaban [Eliquis] 5 mg PO BID 11/04/24 04/07/25 Budesonide/Formoterol Fumarate 2 puff INHALATION RT-DAILY 11/04/24 04/07/25 [Symbicort 160-4.5 Mcg Inhaler] Naproxen [Naprosyn] 500 mg PO BID PRN 12/31/24 04/07/25 Clopidogrel [Plavix] 75 mg PO DAILY 03/01/25 04/07/25 Insulin Glargine,Hum.rec.anlog 20 units SQ DAILY 03/01/25 04/07/25 [Lantus Solostar Pen] Pregabalin [Lyrica] 50 mg PO BID 03/06/25 04/07/25 Cyclobenzaprine [Flexeril] 20 mg PO HS 03/18/25 04/07/25 Furosemide [Lasix] 40 mg PO DAILY 03/18/25 04/07/25 Loratadine 10 mg PO DAILY 03/18/25 04/07/25 Rosuvastatin [Crestor] 20 mg PO HS 03/18/25 04/07/25 Previous Rx's Medication Instructions Recorded Aspirin 81 mg PO DAILY #30 tab 01/29/25 Metoprolol Succinate (ER) [Toprol 50 mg PO DAILY 90 Days #90 tab 02/20/25 XL] Spironolactone [Aldactone] 25 mg PO DAILY #30 tab 02/20/25 Ondansetron Odt [Zofran ODT] 4 mg PO TID PRN #20 tab 02/27/25 Pantoprazole [Protonix] 40 mg PO DAILY 14 Days #14 tab 03/25/25 Allergies Allergy/AdvReac Type Severity Reaction Status Date / Time Penicillins Allergy Nausea & Verified 04/07/25 20:56 Vomiting, rash codeine AdvReac Nausea & Verified 04/07/25 20:56 Vomiting morphine AdvReac Nausea & Verified 04/07/25 20:56 Vomiting Sulfa (Sulfonamide AdvReac Nausea & Verified 04/07/25 20:56 Antibiotics) Vomiting, rash tramadol AdvReac Per Verified 04/07/25 20:56 patient, cannot take with Keppra Review of Systems ROS Statement: Those systems with pertinent positive or pertinent negative responses have been documented in the HPI. ROS Other: All systems not noted in ROS Statement are negative. Past Medical History Past Medical History: Asthma, Heart Failure, CVA/TIA, Diabetes Mellitus, Deep Vein Thrombosis (DVT), GI Bleed, Pneumonia, Seizure Disorder Additional Past Medical History / Comment(s): bilateral pleural effusion, 09/2024 bilateral hip and ankle bursitis, 3 discs in lower back deteroitrating and 2 bulging. CVA with vision impairment. DVT bilateral legs. History of Any Multi-Drug Resistant Organisms: None Reported, MRSA Date of last positivie culture/infection: 2011 MDRO Source:: Lungs Past Surgical History: Section, Cholecystectomy, Heart Catheterization With Stent, Tubal Ligation Additional Past Surgical History / Comment(s): Colonoscopies, right groin mole remove, kidney stones surgically removed, bilateral cataracts removed, glaucoma surgery, bilateral retinal surgery for bleeding, bilateral thoracentesis, Heart Cath with 2 stents Past Anesthesia/Blood Transfusion Reactions: No Reported Reaction Date of Last Stent Placement:: 02/19/25 Past Psychological History: Anxiety Smoking Status: Never smoker Past Alcohol Use History: None Reported Past Drug Use History: None Reported - Past Family History Father Family Medical History: Cancer, Diabetes Mellitus Additional Family Medical History / Comment(s): COLON CANCER, MELANOMA ON HIS CHEST AND HE ALSO HAS BENIGN BRAIN TUMORS X2, pancreatic cancer. Mother Family Medical History: Cancer, Diabetes Mellitus, Dialysis, Myocardial Infar ction ([place]) Additional Family Medical History / Comment(s): MELANOMA THAT METASTASIZED TO THE BRAIN- AT AGE 49. Mother had an [place] at age 34 with angioplasty at age 36 yrs and another [place], and history of diabetes. Patient has many aunts, uncles and nieces with diabetes on her mother's side. Brother(s) Family Medical History: Cancer Additional Family Medical History / Comment(s): Patient has one half-brother with kidney stones, full brother with no major medical problems. Patient has 1 sister with no major medical problems. Daughter(s) Family Medical History: Seizure Disorder Additional Family Medical History / Comment(s): Patient has 2 daughters and her youngest daughter has history of seizure disorder. Patient has one son with no major medical problems. General Exam Limitations: no limitations General appearance: alert, in no apparent distress Head exam: Present: atraumatic, normocephalic, normal inspection Respiratory exam: Present: normal lung sounds bilaterally. Absent: respiratory distress, wheezes, rales, rhonchi, stridor Cardiovascular Exam: Present: normal rhythm, tachycardia GI/Abdominal exam: Present: soft. Absent: distended, tenderness Neurological exam: Present: alert, oriented X3, CN II-XII intact Psychiatric exam: Present: normal affect, normal mood Skin exam: Present: warm, dry, intact, normal color. Absent: rash Course Vital Signs 04/07/25 04/07/25 04/07/25 12:48 15:15 16:00 Temperature 98.6 F Pulse Rate 113 H 109 H 106 H Respiratory 18 18 20 Rate Blood Pressure 157/104 149/83 149/92 O2 Sat by Pulse 96 93 L 94 L Oximetry 04/07/25 04/07/25 04/07/25 18:00 19:00 21:34 Temperature Pulse Rate 108 H 105 H 105 H Respiratory 18 18 16 Rate Blood Pressure 116/68 120/76 126/79 O2 Sat by Pulse 95 92 L 95 Oximetry Medical Decision Making - Medical Decision Making This is a 45 year old female who presents to the emergency department for nausea and vomiting. Was pt. sent in by a medical professional or institution? @ -No Did you speak to anyone other than the patient for history? @ -No Did you review nursing and triage notes? @ -Yes, and I agree, it is accurate with regards to the patient's symptoms. Were old charts reviewed? @ -No Differential Diagnosis? @ -Differential Nausea and Vomiting: Gastroenteritis, cholecystitis, appendicitis, pancreatitis, migraine, benign positional vertigo, food borne illness, pyelonephritis, irritable bowel syndrome, influenza, Covid, GERD, incarcerated hernia, intestinal obstruction, this is not meant to be an all-inclusive list. EKG interpreted by me (3pts min.)? @ -EKG interpreted by me demonstrating the following: Sinus tachycardia. Ventricular rate 108 bpm, NE interval 156 ms, QRS duration 81 ms, QTc 408 ms. X-rays interpreted by me (1pt min.)? @ -Not obtained CT interpreted by me (1pt min.)? @ -Not obtained U/S interpreted by me (1pt. min.)? @ -Not obtained What testing was considered but not performed? (CT, X-rays, U/S, labs)? Why? @ -None What meds were considered but not given? Why? @ -None Did you discuss the management of the patient with other professionals? @ -Yes, Dr. Cody, who accepts the patient for admission. Did you reconcile home meds? @ -No Was smoking cessation discussed for >3mins.? @ -No Was critical care preformed (if so, how long)? @ -No Were there social determinants of health that impacted care today? How? (Homelessness, low income, unemployed, alcoholism, drug addiction, transportation, low edu. Level, literacy, decrease access to med. care, shelter, rehab)? @ -No Was there de-escalation of care discussed even if they declined? (Discuss DNR or withdrawal of care, Hospice)? @ -No What co-morbidities impacted this encounter? (DM, HTN, Smoking, COPD, CAD, Cancer, CVA, Hep., AIDS, mental health diagnosis, sleep apnea, morbid obesity)? @ -DM, CHF Was patient admitted / discharged? @ -Admitted. Lab work demonstrates mild leukocytosis with a white blood cell count of 11.16. She is hyponatremic with a sodium of 126, however she is also hyperglycemic with a glucose of 352, which is likely the reason for the sodium being low. BUN elevated at 37 suggesting dehydration. She was having profuse diarrhea and fecal management system had to be initiated by nursing staff. C. difficile test sent which was found to be negative. She was first treated with Zofran, however this was not effective. She was then given a dose of Reglan, w hich she found more beneficial. However, she was still very weak and tachycardic and did not feel like she could go home. Patient subsequently admitted to medicine for intractable nausea and vomiting related to diabetic gastroparesis. Given that she does have a history of CHF, she was only started on low-dose maintenance fluids with as needed nausea medication. Case discussed with ED attending, Dr. Hansen. Undiagnosed new problem with uncertain prognosis? @ -None Drug Therapy requiring intensive monitoring for toxicity (Heparin, Nitro, Insulin, Cardizem)? @ -None Were any procedures done? @ -None Diagnosis/symptom? @ -Intractable nausea and vomiting Acute, or Chronic, or Acute on Chronic? @ -Acute Uncomplicated (without systemic symptoms) or Complicated (systemic symptoms)? @ -Complicated Side effects of treatment? @ -None Exacerbation, Progression, or Severe Exacerbation] @ -Not applicable Poses a threat to life or bodily function? @ -Yes, patient unable to function in her current state - Lab Data Result diagrams: 04/07/25 13:29 04/08/25 06:44 Lab Results 04/07/25 04/07/25 04/07/25 Range/Units 13:29 13:29 13:29 WBC 11.16 H (4.50-10.00) 10*3/uL RBC 4.30 (4.10-5.20) 10*6/uL Hgb 11.4 L (12.0-15.0) g/dL Hct 34.0 L (37.2-46.3) % MCV 79.1 L (80.0-97.0) fL MCH 26.5 L (27.0-32.0) pg MCHC 33.5 (32.0-37.0) g/dL Plt Count 165 (140-440) 10*3/uL MPV 9.7 (9.5-12.2) fL Immature Gran % (Auto) 0.4 % Neutrophils % 87.3 % Lymphocytes % 4.8 % Monocytes % 5.5 % Eosinophils % 1.5 % Basophils % 0.5 % Immature Gran # 0.05 H (0.00-0.04) 10*3/uL Neutrophils # 9.73 H (1.80-7.70) 10*3/uL Lymphocytes # 0.54 L (0.90-5.00) 10*3/uL Monocytes # 0.61 (0.20-1.00) 10*3/uL Eosinophils # 0.17 (0.04-0.35) 10*3/uL Basophils # 0.06 (0.00-0.10) 10*3/uL Sodium 126 L (137-145) mmol/L Potassium 5.0 (3.5-5.1) mmol/L Chloride 98 (98-107) mmol/L Carbon Dioxide 21 L (22-30) mmol/L Anion Gap 7 mmol/L BUN 37 H (7-17) mg/dL Creatinine 0.69 (0.52-1.04) mg/dL Est GFR (CKD-EPI)AfAm >90 (>60 ml/min/1.73 sqM) Est GFR (CKD-EPI)NonAf >90 (>60 ml/min/1.73 sqM) Glucose 352 H (74-99) mg/dL POC Glucose (mg/dL) (70-110) mg/dL POC Glu [employer]er ID Plasma Lactic Acid Carlos 1.4 (0.7-2.0) mmol/L Calcium 9.8 (8.4-10.2) mg/dL Magnesium 1.8 (1.6-2.3) mg/dL Total Bilirubin 0.5 (0.2-1.3) mg/dL AST 30 (14-36) U/L ALT 24 (4-34) U/L Alkaline Phosphatase 145 H (38-126) U/L NT-Pro-B Natriuret Pep 2660 pg/mL Total Protein 5.9 L (6.3-8.2) g/dL Albumin 3.0 L (3.5-5.0) g/dL Lipase 128 (23-300) U/L Acetone, Qual (Negative) C. difficile (EIA) Intrp (Negative) 04/07/25 04/07/25 04/07/25 Range/Units 13:29 15:34 16:38 WBC (4.50-10.00) 10*3/uL RBC (4.10-5.20) 10*6/uL Hgb (12.0-15.0) g/dL Hct (37.2-46.3) % MCV (80.0-97.0) fL MCH (27.0-32.0) pg MCHC (32.0-37.0) g/dL Plt Count (140-440) 10*3/uL MPV (9.5-12.2) fL Immature Gran % (Auto) % Neutrophils % % Lymphocytes % % Monocytes % % Eosinophils % % Basophils % % Immature Gran # (0.00-0.04) 10*3/uL Neutrophils # (1.80-7.70) 10*3/uL Lymphocytes # (0.90-5.00) 10*3/uL Monocytes # (0.20-1.00) 10*3/uL Eosinophils # (0.04-0.35) 10*3/uL Basophils # (0.00-0.10) 10*3/uL Sodium (137-145) mmol/L Potassium (3.5-5.1) mmol/L Chloride (98-107) mmol/L Carbon Dioxide (22-30) mmol/L Anion Gap mmol/L BUN (7-17) mg/dL Creatinine (0.52-1.04) mg/dL Est GFR (CKD-EPI)AfAm (>60 ml/min/1.73 sqM) Est GFR (CKD-EPI)NonAf (>60 ml/min/1.73 sqM) Glucose (74-99) mg/dL POC Glucose (mg/dL) 239 H (70-110) mg/dL POC Glu Web Production Designer ID [place] Jennifer Plasma Lactic Acid Carlos (0.7-2.0) mmol/L Calcium (8.4-10.2) mg/dL Magnesium (1.6-2.3) mg/dL Total Bilirubin (0.2-1.3) mg/dL AST (14-36) U/L ALT (4-34) U/L Alkaline Phosphatase (38-126) U/L NT-Pro-B Natriuret Pep pg/mL Total Protein (6.3-8.2) g/dL Albumin (3.5-5.0) g/dL Lipase (23-300) U/L Acetone, Qual Negative (Negative) C. difficile (EIA) Intrp Negative (Negative) Disposition Clinical Impression: Intractable nausea and vomiting, Diabetic gastroparesis Disposition: ADMITTED IP TO THIS HOSP
[2025-04-07] MEDS: ONDANSETRON 4 MG/2 ML VIAL IVP STA (15:02)
[2025-04-07] MEDS: PANTOPRAZOLE 40 MG/10 ML VIAL IVP STA (15:03)
[2025-04-07] MEDS: HYDROmorphone 1 MG/ML 1 ML SYRINGE IVP STA (15:03)
[2025-04-07] MEDS: INSULIN REGULAR 100 UNIT/ML VIAL (IV) IV ONE (15:10)
[2025-04-07] MEDS: LACTATED RINGERS 500 ML IV ONE (15:12)
[2025-04-07 16:39] LABS: Glucose,Whole Blood 239 mg/dL (70-110)
[2025-04-07] MEDS: METOCLOPRAMIDE 5 MG/ML 2 ML VIAL IVP STA (17:47)
[2025-04-07] MEDS ORDERED: NALOXONE 0.4 MG/ML 1 ML VIAL IV PRN (18:15)
[2025-04-07] MEDS ORDERED: ONDANSETRON 4 MG/2 ML VIAL IVP PRN (18:15)
[2025-04-07] MEDS ORDERED: ACETAMINOPHEN TAB 325 MG TAB PO PRN (18:15)
[2025-04-07] MEDS ORDERED: METOCLOPRAMIDE 5 MG/ML 2 ML VIAL IVP PRN (18:16)
[2025-04-07] MEDS: HYDROmorphone 1 MG/ML 1 ML SYRINGE IVP PRN (18:32)
[2025-04-07] MEDS: SODIUM CHLORIDE 0.9% 1,000 ML IV SCH (18:33)
[2025-04-07] MEDS ORDERED: ONDANSETRON 4 MG in SODIUM CHLORIDE 0.9% 50 ML IVPB PRN (21:33)
[2025-04-07] MEDS ORDERED: DEXTROSE 50% SYRINGE 50 ML IVP PRN ×2 (21:35)
[2025-04-07 22:02] LABS: Glucose,Whole Blood 221 mg/dL (70-110)
[2025-04-07] MEDS: HYDROmorphone 0.5 MG/0.5 ML SYRINGE IVP PRN (22:03)
[2025-04-07] MEDS: ONDANSETRON 4 MG/2 ML VIAL IVP PRN (22:04)
--- NOTE | 2025-04-07 22:22 | HP ---
HISTORY AND PHYSICAL CHIEF COMPLAINTS: Nausea, vomiting, and diarrhea. HISTORY OF PRESENT ILLNESS: This 45-year-old woman with a past medical history of multiple medical problems including diabetes mellitus, gastroparesis, was admitted complaining of nausea, vomiting, and watery diarrhea for the last couple of days. The patient is unable to keep anything down. The patient is also complaining of severe abdominal pain. There is no history of fever, rigors or chills at this time. White count is slightly elevated. PAST MEDICAL HISTORY: Diabetes type 2, history of CHF, asthma. Rest of the chart is also reviewed. HOME MEDICATIONS: Reviewed, include Keppra. Dose and rest of medications reviewed. ALLERGIES: Penicillin. FAMILY HISTORY: History of diabetes mellitus, colon cancer. SOCIAL HISTORY: No history of smoking, alcohol. REVIEW OF SYSTEMS: A 14-point review of systems is negative, except as mentioned earlier. PHYSICAL EXAMINATION: VITAL SIGNS: Pulse is 105, blood pressure 120/70, and respirations 18. HEENT: Conjunctivae normal. NECK: No jugular venous distention. CARDIOVASCULAR: S1 and S2. RESPIRATIONS: Few scattered rhonchi. ABDOMEN: Soft, mild diffuse tenderness present. No guarding. No rigidity. No mass palpable. Bowel sounds diminished. LEGS: No edema. NERVOUS SYSTEM: No focal deficit. : Acute diarrhea present. LABORATORY DATA: WBC 7.6. Rest of the labs are noted. ASSESSMENT: 1. Nausea, vomiting, and diarrhea, possible acute gastroenteritis. 2. Possible acute gastroparesis. 3. Diabetes mellitus, type 2. 4. History of asthma. 5. History of congestive heart failure. 6. History of deep vein thrombosis. 7. History of seizure disorder. 8. Multiple complex medical issues. RECOMMENDATIONS AND DISCUSSION: This 45-year-old woman presented with multiple complex medical issues. We will monitor the patient closely. I would recommend resume the home medications, symptomatic treatment, proton pump inhibitors. The QTc is only 408. We will continue to monitor. Guarded prognosis. For further recommendations, see orders for details. MMODL / IJN: [id number] /
[2025-04-07] MEDS: LEVOFLOXACIN 500MG-D5W PMX 500 MG in DEXTROSE/WATER 1 100ML.BAG IVPB SCH (22:48)
[2025-04-07] MEDS: INSULIN GLARGINE (LANTUS) 100 UNIT/ML SYR SQ SCH (22:49)
[2025-04-07] MEDS: metroNIDAZOLE-NS PMX 500 MG in SALINE 1 100ML.BAG IVPB SCH (23:41)
[2025-04-08 00:58] LABS: Bilirubin,Urine Negative (Negative); Blood,Urine Small (Negative); Budding Yeast,Urine Few /hpf; Color,Urine Light Yellow; Glucose,Urine (UA) 4+ (Negative); Hyaline Casts,Urine 8 /lpf (0-2); Ketones,Urine Negative (Negative); Leukocyte Esterase,Urine Large (Negative); Nitrite,Urine Negative (Negative); PH, Urine 7.0 (5.0-8.0); Protein,Urine 3+ (Negative); RBC,Urine 22 /hpf (0-5); Specific Gravity,Urine 1.015 (1.001-1.035); Urobilinogen,Urine <2.0 mg/dL (<2.0); WBC,Urine 157 /hpf (0-5)
[2025-04-08 03:57] LABS: Barbiturate Screen,Urine Not Detected (NotDetected); Benzodiazepines Screen,Urine Not Detected (NotDetected); Opiate Screen,Urine Detected (NotDetected); Oxycodone Screen, Urine Not Detected (NotDetected); Phencyclidine Screen,Urine Not Detected (NotDetected); Tricyclic Antidepressant,Urine Detected (NotDetected); Urn Cannabinoid Scrn Not Detected (NotDetected)
[2025-04-08 07:36] LABS: Glucose,Whole Blood 164 mg/dL (70-110)
[2025-04-08] MEDS: INSULIN LISPRO (HumaLOG) 100 UNIT/ML 10 mL VL SQ SCH (07:58)
[2025-04-08] MEDS: SYMBICORT 160-4.5 MCG INHALER INHALATION SCH (08:01)
[2025-04-08] MEDS: PREGABALIN 50 MG CAP PO SCH (08:14)
[2025-04-08] MEDS: ASPIRIN 81 MG PO SCH (08:14)
[2025-04-08] MEDS: levETIRAcetam 500 MG TAB PO SCH (08:14)
[2025-04-08] MEDS: LORATADINE 10 MG TAB PO SCH (08:14)
[2025-04-08] MEDS: PANTOPRAZOLE 40 MG/10 ML VIAL IV SCH (08:14)
[2025-04-08] MEDS: METOPROLOL SUCCINATE (ER) 50 MG TAB.ER.24H PO SCH ×2 (08:15→22:02)
[2025-04-08] MEDS: CLOPIDOGREL 75 MG TAB PO SCH (08:15)
[2025-04-08] MEDS: FUROSEMIDE 40 MG TAB PO SCH (08:15)
[2025-04-08] MEDS: PROCHLORPERAZINE INJ 10 MG/2 ML VIAL IVP PRN (08:21)
[2025-04-08] MEDS: SPIRONOLACTONE 25 MG TAB PO SCH (08:21)
[2025-04-08] MEDS ORDERED: PANTOPRAZOLE 40 MG/10 ML VIAL IV SCH (09:00)
[2025-04-08 10:29] LABS: ALT 25 U/L (8-44); AST 28 U/L (13-35); Albumin 2.8 g/dL (3.8-4.9); Albumin/Globulin Ratio 1.08 Ratio (1.60-3.17); Alkaline Phosphatase 136 U/L (41-126); Anion Gap 6.90 mmol/L (4.00-12.00); BUN/Creat Ratio 44.33 Ratio (12.00-20.00); Blood Urea Nitrogen 26.6 mg/dL (9.0-27.0); Calcium 8.9 mg/dL (8.7-10.3); Carbon Dioxide 24.1 mmol/L (21.6-31.8); Chloride 100 mmol/L (96-109); Globulin 2.6 g/dL (1.6-3.3); Glucose 181 mg/dL (70-110); Potassium 4.5 mmol/L (3.5-5.5); Sodium 131 mmol/L (135-145); Total Protein 5.4 g/dL (6.2-8.2)
[2025-04-08 11:08] LABS: Basophils # (A) 0.04 X 10*3/uL (0.00-0.10); Basophils % (A) 0.5 %; Eosinophils # (A) 0.08 X 10*3/uL (0.04-0.35); Eosinophils % (A) 1.0 %; HCT 34.1 % (37.2-46.3); HGB 10.9 g/dL (12.0-15.0); Immature Grans, Automated 0.40 %; Lymphocytes # (A) 0.92 X 10*3/uL (0.90-5.00); Lymphocytes % (A) 11.8 %; MCH 25.5 pg (27.0-32.0); MCHC 32.0 g/dL (32.0-37.0); MCV 79.9 FL (80.0-97.0); Monocytes # (A) 0.61 X 10*3/uL (0.20-1.00); Monocytes % (A) 7.8 %; NRBC Per 100 WBC 0 X 10*3/uL (0.00-0.01); Neutrophils # (A) 6.12 X 10*3/uL (1.80-7.70); Neutrophils % (A) 78.5 %; Platelet Count 195 X 10*3/uL (140-440); RBC 4.27 X 10*6/uL (4.10-5.20); RDW 17.5 % (11.5-14.5); WBC 7.80 X 10*3/uL (4.50-10.00)
[2025-04-08 12:10] LABS: Glucose,Whole Blood 130 mg/dL (70-110)
[2025-04-08] MEDS ORDERED: ALBUTEROL NEBULIZED 2.5 MG/3 ML INHALATION PRN (13:43)
--- NOTE | 2025-04-08 14:29 | XR ---
EXAMINATION TYPE: XR chest 1V portable DATE OF EXAM: 04/08/2025 2:01 PM COMPARISON: None. CLINICAL INDICATION: Female, 45 years old with history of chf, pain TECHNIQUE: 2 view(s) obtained. FINDINGS: Heart size is normal. Pulmonary vasculature is normal. No suspicious consolidations or infiltrates ev ident. Osseous structures are unremarkable IMPRESSION: 1. No acute pulmonary process radiographically apparent. [facility], , 04/08/2025 2:27 PM
[2025-04-08] MEDS: APIXABAN 5 MG TAB PO SCH (14:30)
[2025-04-08 17:10] LABS: Glucose,Whole Blood 94 mg/dL (70-110)
[2025-04-08 20:28] LABS: Glucose,Whole Blood 83 mg/dL (70-110)
[2025-04-08] MEDS: ATORVASTATIN 40 MG TAB PO SCH (22:00)
[2025-04-08] MEDS: CYCLOBENZAPRINE 10 MG TAB PO SCH (22:01)
--- NOTE | 2025-04-09 04:59 | PN ---
PROGRESS NOTE DATE OF SERVICE: 04/08/2025 SUBJECTIVE: This 45-year-old woman was admitted with nausea, vomiting, and diarrhea. She is being closely monitored. The patient still has watery diarrhea. No chest pain, no palpitation. PHYSICAL EXAMINATION: VITAL SIGNS: Pulse 105, blood pressure 157/95, and respirations 14. CHEST: Clear to auscultation. CARDIOVASCULAR: S1, S2. ABDOMEN: Soft, mild diffuse discomfort. LABORATORY DATA: Reviewed. ASSESSMENT: 1. Nausea, vomiting, diarrhea, possible acute gastroenteritis. 2. Rule out urinary tract infection. 3. Acute gastroparesis exacerbation. 4. Diabetes mellitus type 2. 5. History of asthma. 6. History of congestive heart failure. 7. History of deep vein thrombosis. 8. Seizure disorder. 9. Multiple complex medical issues. RECOMMENDATION: Continue current management and symptomatic treatment. Otherwise, also recommend urine culture. Otherwise, continue to monitor. Stool evaluation. Empiric antibiotics. Guarded prognosis. Further recommendation is to follow. MMODL / IJN: [id number] /
[2025-04-09 07:31] LABS: Glucose,Whole Blood 97 mg/dL (70-110)
[2025-04-09 07:51] LABS: Basophils # (A) 0.04 X 10*3/uL (0.00-0.10); Basophils % (A) 0.7 %; Eosinophils # (A) 0.11 X 10*3/uL (0.04-0.35); Eosinophils % (A) 2.0 %; HCT 34.1 % (37.2-46.3); HGB 10.9 g/dL (12.0-15.0); Immature Grans, Automated 0.20 %; Lymphocytes # (A) 1.40 X 10*3/uL (0.90-5.00); Lymphocytes % (A) 25.1 %; MCH 25.8 pg (27.0-32.0); MCHC 32.0 g/dL (32.0-37.0); MCV 80.6 FL (80.0-97.0); Monocytes # (A) 0.70 X 10*3/uL (0.20-1.00); Monocytes % (A) 12.5 %; NRBC Per 100 WBC 0 X 10*3/uL (0.00-0.01); Neutrophils # (A) 3.32 X 10*3/uL (1.80-7.70); Neutrophils % (A) 59.5 %; Platelet Count 209 X 10*3/uL (140-440); RBC 4.23 X 10*6/uL (4.10-5.20); RDW 17.9 % (11.5-14.5); WBC 5.58 X 10*3/uL (4.50-10.00)
[2025-04-09 08:23] LABS: ALT 30 U/L (8-44); AST 42 U/L (13-35); Albumin 2.8 g/dL (3.8-4.9); Albumin/Globulin Ratio 1.17 Ratio (1.60-3.17); Alkaline Phosphatase 129 U/L (41-126); Anion Gap 7.90 mmol/L (4.00-12.00); BUN/Creat Ratio 27.67 Ratio (12.00-20.00); Blood Urea Nitrogen 16.6 mg/dL (9.0-27.0); Calcium 8.9 mg/dL (8.7-10.3); Carbon Dioxide 25.1 mmol/L (21.6-31.8); Chloride 102 mmol/L (96-109); Globulin 2.4 g/dL (1.6-3.3); Glucose 98 mg/dL (70-110); Potassium 4.0 mmol/L (3.5-5.5); Sodium 135 mmol/L (135-145); Total Protein 5.2 g/dL (6.2-8.2)
[2025-04-09 12:36] LABS: Glucose,Whole Blood 100 mg/dL (70-110)
[2025-04-09 15:07] VITALS: BMI 23.2
[2025-04-09 17:02] LABS: Glucose,Whole Blood 74 mg/dL (70-110)
--- NOTE | 2025-04-09 17:15 | CDI ---
Documentation Clarification Form Date: 04/09/2025 05:05:52 PM From: Elly Lamb RN, CCDS Phone: [phone] Admit Date: 04/07/2025 06:17:00 PM Patient Name: Estela Gilbert Visit Number: [id number] Discharge Date: ATTENTION: The Clinical Documentation Specialists (CDI) and [facility] Coding Staff appreciate your assistance in clarifying documentation. Please respond to the clarification below the line at the bottom and electronically sign. The CDI & [facility] Coding staff will review the response and follow-up if needed. Please note: Queries are made part of the Legal Health Record. If you have any questions, please contact the author of this message via ITS. Doctor. Paul Kumar Your patient has the documented diagnosis of history of CHF in the Internal medicine H/P and subsequent progress note. Additional information regarding the type, acuity of CHF is requested. History/Risk Factors: Asthma, Heart Failure, CVA/TIA, Diabetes Mellitus, Deep Vein Thrombosis (DVT), GI Bleed, Pneumonia, Seizure Disorder Clinical Indicators: 45-year-old male present to ED with Intractable nausea and vomiting, He has a past medical of congestive heart failure. Respiratory exam: Normal lung sounds bilaterally. Cardiovascular Exam: Normal rhythm, tachycardia 04/07 VS/Pulse OX: 157/104 113 18 98.6 96% RA BNP: 2660 01/25/25 Echocardiogram Results: LVEF is estimated at 20-25 % Right ventricle is mild to moderately dilated. Moderate pulmonary hypertension. Enlarged left atrium, mild mitral moderate tricuspid regurgitation, and trivial aortic insufficiency. Small pericardial effusion. 04/08: Chest X Ray: No acute pulmonary process Treatment: Ceo & Founder / Telemetry Lasix 40MG PO Daily 04/08 -04/09 Aldactone 25 MG PO Daily 04/08-04/09 Toprol Xl 50 MG PO BID 04/08-04/09 In your professional opinion, can you please clarify the acuity and type of CHF if known? [ ] Chronic Systolic Heart Failure (reduced EF) [ ] Other, please specify [ ] Unable to determine (Template Last Revised: October 2020) Chronic Systolic Heart Failure (reduced EF) [facility]
[2025-04-09 17:29] LABS: Glucose,Whole Blood 72 mg/dL (70-110)
[2025-04-09] MEDS: CHOLESTYRAMINE RESIN 4 GM PACKET PO SCH (18:00)
[2025-04-09 20:06] LABS: Glucose,Whole Blood 137 mg/dL (70-110)
--- NOTE | 2025-04-10 01:16 | PN ---
PROGRESS NOTE DATE OF SERVICE: 04/09/2025 SUBJECTIVE: This is a 45-year-old woman admitted with nausea, vomiting, and persistent diarrhea. No chest pain. No palpitations. PHYSICAL EXAMINATION: VITAL SIGNS: Pulse 87, blood pressure 143/83, respirations 15. CHEST: Clear to auscultation. CARDIOVASCULAR: S1, S2. Heart sounds normal. ABDOMEN: Soft. Mild diffuse discomfort. LABORATORY DATA: Reviewed. ASSESSMENT: 1. Nausea, vomiting and diarrhea, possible acute gastroenteritis. 2. Rule out urinary tract infection. 3. Acute gastroparesis exacerbation. 4. Diabetes mellitus, type 2. 5. History of asthma. 6. Multiple complex medical issues. RECOMMENDATIONS: Continue current management and continue with symptomatic treatment. Continue the antibiotics. Cultures are negative so far. Further recommendations to follow. Add Osiel. MMODL / IJN: [id number] /
[2025-04-10 07:22] LABS: Glucose,Whole Blood 71 mg/dL (70-110)
[2025-04-10 10:02] LABS: Basophils # (A) 0.04 X 10*3/uL (0.00-0.10); Basophils % (A) 0.9 %; Eosinophils # (A) 0.12 X 10*3/uL (0.04-0.35); Eosinophils % (A) 2.6 %; HCT 32.6 % (37.2-46.3); HGB 10.2 g/dL (12.0-15.0); Immature Grans, Automated 0.20 %; Lymphocytes # (A) 1.68 X 10*3/uL (0.90-5.00); Lymphocytes % (A) 36.9 %; MCH 25.6 pg (27.0-32.0); MCHC 31.3 g/dL (32.0-37.0); MCV 81.7 FL (80.0-97.0); Monocytes # (A) 0.75 X 10*3/uL (0.20-1.00); Monocytes % (A) 16.5 %; NRBC Per 100 WBC 0 X 10*3/uL (0.00-0.01); Neutrophils # (A) 1.95 X 10*3/uL (1.80-7.70); Neutrophils % (A) 42.9 %; Platelet Count 195 X 10*3/uL (140-440); RBC 3.99 X 10*6/uL (4.10-5.20); RDW 17.6 % (11.5-14.5); WBC 4.55 X 10*3/uL (4.50-10.00)
[2025-04-10 10:10] LABS: Anion Gap 8.20 mmol/L (4.00-12.00); BUN/Creat Ratio 23.00 Ratio (12.00-20.00); Blood Urea Nitrogen 13.8 mg/dL (9.0-27.0); Calcium 8.9 mg/dL (8.7-10.3); Carbon Dioxide 26.8 mmol/L (21.6-31.8); Chloride 102 mmol/L (96-109); Glucose 78 mg/dL (70-110); Potassium 3.6 mmol/L (3.5-5.5); Sodium 137 mmol/L (135-145)
[2025-04-10 12:12] LABS: Glucose,Whole Blood 166 mg/dL (70-110)
[2025-04-10] MEDS: amLODIPine 5 MG TAB PO SCH (16:39)
[2025-04-10 17:10] LABS: Glucose,Whole Blood 137 mg/dL (70-110)
[2025-04-10] MEDS: LOPERAMIDE 2 MG CAP PO PRN (18:39)
[2025-04-10 20:11] LABS: Glucose,Whole Blood 193 mg/dL (70-110)
--- NOTE | 2025-04-11 01:53 | PN ---
PROGRESS NOTE DATE OF SERVICE: 04/10/2025 SUBJECTIVE: This is a 45-year-old woman who was admitted with severe acute gastritis, is being closely monitored. The patient is on empiric antibiotics. No chest pain. No palpitations. OBJECTIVE: VITAL SIGNS: On exam, pulse 84, blood pressure 148/94, respirations 16. CHEST: Clear to auscultation. CARDIOVASCULAR: S1, S2. ABDOMEN: Soft. Mild diffuse discomfort. No guarding, rigidity. LABS: Reviewed. ASSESSMENT: 1. Nausea, vomiting, diarrhea, possible acute gastroenteritis. 2. Possible UTI. 3. Acute gastroparesis exacerbation. 4. Diabetes mellitus, type 2. 5. History of asthma. 6. Hypertension. 7. Multiple complex medical issues. RECOMMENDATIONS AND DISCUSSION: I recommend to continue current medications, symptomatic treatment otherwise at this time. I would add Norvasc to the current regimen. Continue to monitor. Further recommendations to follow. MMODL / IJN: [id number] /
[2025-04-11 07:21] LABS: Glucose,Whole Blood 209 mg/dL (70-110)
[2025-04-11 11:27] LABS: Glucose,Whole Blood 242 mg/dL (70-110)
[2025-04-11 16:53] LABS: Glucose,Whole Blood 164 mg/dL (70-110)
[2025-04-11 20:28] LABS: Glucose,Whole Blood 278 mg/dL (70-110)
--- NOTE | 2025-04-12 04:20 | PN ---
PROGRESS NOTE DATE OF SERVICE: 04/11/2025 SUBJECTIVE: This 45-year-old woman who was admitted with nausea, diarrhea, possible acute gastroenteritis. She is being closely monitored. No chest pain. No palpitations. PHYSICAL EXAMINATION: VITAL SIGNS: Pulse is 79, blood pressure 157/90, respirations 16. CHEST: Clear to auscultation. CARDIOVASCULAR: S1 and S2. ABDOMEN: Soft. LABORATORY DATA: Reviewed. ASSESSMENT: 1. Nausea, vomiting, diarrhea, possible acute gastroenteritis. 2. Possible urinary tract infection. 3. History of gastroparesis exacerbation. 4. Diabetes mellitus, type 2. 5. History of asthma. 6. Hypertension. 7. Multiple complex medical issues. RECOMMENDATIONS: Recommend to continue current management and cultures are negative so far. Recommend repeat labs in the morning. Advance diet. Monitor diarrhea. Otherwise, the patient is stable, may be discharged in the next 24 hours. MMODL / IJN: [id number] /
[2025-04-12 07:09] LABS: Glucose,Whole Blood 248 mg/dL (70-110)
[2025-04-12 07:28] VITALS: BP 131/78; PULSE 81; RESP 20; TEMP 98.5
[2025-04-12 08:09] LABS: Basophils # (A) 0.03 X 10*3/uL (0.00-0.10); Basophils % (A) 0.6 %; Eosinophils # (A) 0.21 X 10*3/uL (0.04-0.35); Eosinophils % (A) 4.3 %; HCT 31.9 % (37.2-46.3); HGB 10.2 g/dL (12.0-15.0); Immature Grans, Automated 0.40 %; Lymphocytes # (A) 1.43 X 10*3/uL (0.90-5.00); Lymphocytes % (A) 29.3 %; MCH 26.3 pg (27.0-32.0); MCHC 32.0 g/dL (32.0-37.0); MCV 82.2 FL (80.0-97.0); Monocytes # (A) 0.56 X 10*3/uL (0.20-1.00); Monocytes % (A) 11.5 %; NRBC Per 100 WBC 0 X 10*3/uL (0.00-0.01); Neutrophils # (A) 2.63 X 10*3/uL (1.80-7.70); Neutrophils % (A) 53.9 %; Platelet Count 188 X 10*3/uL (140-440); RBC 3.88 X 10*6/uL (4.10-5.20); RDW 17.3 % (11.5-14.5); WBC 4.88 X 10*3/uL (4.50-10.00)
[2025-04-12 08:38] LABS: Anion Gap 7.30 mmol/L (4.00-12.00); BUN/Creat Ratio 23.86 Ratio (12.00-20.00); Blood Urea Nitrogen 16.7 mg/dL (9.0-27.0); Calcium 9.0 mg/dL (8.7-10.3); Carbon Dioxide 27.7 mmol/L (21.6-31.8); Chloride 99 mmol/L (96-109); Glucose 234 mg/dL (70-110); Potassium 4.3 mmol/L (3.5-5.5); Sodium 134 mmol/L (135-145)
[2025-04-12] MEDS: HYDROcodone/APAP 10-325MG 1 EACH TAB PO PRN (09:40)
--- NOTE | 2025-04-17 00:40 | P.DS ---
Providers Date of admission: 04/07/25 18:17 Expected date of discharge: 04/12/25 Attending physician: Pedro Dennis MD Primary care physician: Bee Olguin Hospital Course: Final diagnosis Nausea and vomiting with diarrhea with gastroparesis exacerbation Possible acute urinary tract infection, present on admission, likely asymptomatic bacteriuria diabetes mellitus, type II, uncontrolled with hyper and hypoglycemia Chronic systolic heart failure with reduced EF History of asthma, not in exacerbation Hypertension Moderate protein calorie malnutrition with a BMI of 23.2 GI prophylaxis DVT prophylaxis Full code Discharge disposition Patient is being discharged in a stable condition with guarded prognosis to home. Patient will follow-up with Dr. Olguin in the outpatient setting upon discharge. Patient is to continue with slowly advancing diet as tolerated. Recommend outpatient follow-up with GI as scheduled. Recommend tertiary care center for ongoing gastroparesis. Total time taken is greater than 35 minutes. Hospital course This is a 45-year-old female who was recently admitted with intractable nausea and vomiting along with significant diarrhea with diabetic gastroparesis being closely monitored. Patient was also maintained on antibiotics. Patient slow to improve and diarrhea improved abdominal pain recommend outpatient follow-up at gastroparesis center and GI follow-up. Currently no reports of chest pain, shortness of breath, or palpitations. Patient is afebrile. No reports of nausea or vomiting and patient is tolerating diet. Patient will be discharged home today. Guarded prognosis and high risk for readmissions given significant comorbidities. Physical exam: Gen: This is a 45-year-old female who is awake, alert and oriented x 3, thin built, elderly appearing, chronically ill-appearing HEENT: Head is atraumatic, normocephalic. Pupils equal, round. Sclerae is anicteric. NECK: Supple. No JVD. No lymphadenopathy. No thyromegaly. LUNGS: Diminished breath sounds bilaterally otherwise clear to auscultation. No wheezes or rhonchi. No intercostal retractions. HEART: Regular rate and rhythm. No murmur. ABDOMEN: Soft. Thin. Bowel sounds are present. No masses. No tenderness. EXTREMITIES: No pedal edema. No calf tenderness. NEUROLOGICAL: Patient is awake, alert and oriented x3. Cranial nerves 2 through 12 are grossly intact. Please refer to medication reconciliation sheet for a list of medications. The impression and plan of care has been dictated by Nicole Moncada, Nurse Practitioner as directed. Dr. José MD I have performed a history and examination and MDM of this patient, discussed the same with the dictator, and agree with the dictator's assessment and plan as written ,documented as a scribe. Based on total visit time, I have performed more than 50% of the visit. Patient Condition at Discharge: Good Plan - Discharge Summary Discharge Rx Participant: No New Discharge Prescriptions: New metroNIDAZOLE [Flagyl] 500 mg PO TID 3 Days #9 tab Levofloxacin [Levaquin] 500 mg PO DAILY 3 Days #3 tab amLODIPine [Norvasc] 5 mg PO DAILY #30 tab Loperamide [Imodium] 2 mg PO QID PRN #20 cap PRN Reason: Diarrhea Continue HYDROcodone/APAP 10-325MG [[place] 10-325] 1 tab PO TID PRN PRN Reason: Pain levETIRAcetam [Keppra] 500 mg PO DAILY Albuterol Nebulized [Ventolin Nebulized] 2.5 mg INHALATION RT-QID PRN PRN Reason: Shortness Of Breath Apixaban [Eliquis] 5 mg PO BID Naproxen [Naprosyn] 500 mg PO BID PRN PRN Reason: Pain Metoprolol Succinate (ER) [Toprol XL] 50 mg PO DAILY 90 Days #90 tab Spironolactone [Aldactone] 25 mg PO DAILY #30 tab Ondansetron Odt [Zofran ODT] 4 mg PO TID PRN #20 tab PRN Reason: Nausea Clopidogrel [Plavix] 75 mg PO DAILY Pregabalin [Lyrica] 50 mg PO BID Cyclobenzaprine [Flexeril] 20 mg PO HS Rosuvastatin [Crestor] 20 mg PO HS Pantoprazole [Protonix] 40 mg PO DAILY 14 Days #14 tab Budesonide/Formoterol Fumarate [Symbicort 160-4.5 Mcg Inhaler] 2 puff INHALATION RT-DAILY Aspirin 81 mg PO DAILY #30 tab Insulin Glargine,Hum.rec.anlog [Lantus Solostar Pen] 20 units SQ DAILY Furosemide [Lasix] 40 mg PO DAILY Loratadine 10 mg PO DAILY Discharge Medication List HYDROcodone/APAP 10-325MG [[place] 10-325] 1 tab PO TID PRN 01/14/18 [History] levETIRAcetam [Keppra] 500 mg PO DAILY 08/29/23 [History] Albuterol Nebulized [Ventolin Nebulized] 2.5 mg INHALATION RT-QID PRN 11/04/24 [History] Apixaban [Eliquis] 5 mg PO BID 11/04/24 [History] Budesonide/Formoterol Fumarate [Symbicort 160-4.5 Mcg Inhaler] 2 puff INHALATION RT-DAILY 11/04/24 [History] Naproxen [Naprosyn] 500 mg PO BID PRN 12/31/24 [History] Aspirin 81 mg PO DAILY #30 tab 01/29/25 [Rx] Metoprolol Succinate (ER) [Toprol XL] 50 mg PO DAILY 90 Days #90 tab 02/20/25 [Rx] Spironolactone [Aldactone] 25 mg PO DAILY #30 tab 02/20/25 [Rx] Ondansetron Odt [Zofran ODT] 4 mg PO TID PRN #20 tab 02/27/25 [Rx] Clopidogrel [Plavix] 75 mg PO DAILY 03/01/25 [History] Insulin Glargine,Hum.rec.anlog [Lantus Solostar Pen] 20 units SQ DAILY 03/01/25 [History] Pregabalin [Lyrica] 50 mg PO BID 03/06/25 [History] Cyclobenzaprine [Flexeril] 20 mg PO HS 03/18/25 [History] Furosemide [Lasix] 40 mg PO DAILY 03/18/25 [History] Loratadine 10 mg PO DAILY 03/18/25 [History] Rosuvastatin [Crestor] 20 mg PO HS 03/18/25 [History] Levofloxacin [Levaquin] 500 mg PO DAILY 3 Days #3 tab 04/12/25 [Rx] Loperamide [Imodium] 2 mg PO QID PRN #20 cap 04/12/25 [Rx] Pantoprazole [Protonix] 40 mg PO DAILY 14 Days #14 tab 04/12/25 [Rx] amLODIPine [Norvasc] 5 mg PO DAILY #30 tab 04/12/25 [Rx] metroNIDAZOLE [Flagyl] 500 mg PO TID 3 Days #9 tab 04/12/25 [Rx] Follow up Appointment(s)/Referral(s): Bee Olguin III, MD [Primary Care Provider] - 04/15/25 10:30 am Omayra Burns MD [STAFF PHYSICIAN] - 1 Week (Please call the office and leave a message and they will call you back to schedule your appt.) Patient Instructions/Handouts: Loperamide (By mouth), Metronidazole (By mouth), Amlodipine (By mouth), Levofloxacin (By mouth), Pantoprazole (By mouth) Activity/Diet/Wound Care/Special Instructions: Activity limited until follow-up Follow-up with primary care provider Follow-up with GI outpatient Follow-up with cardiology outpatient Follow-up primary care provider on discharge Continue current diet Continue monitoring blood sugars closely Continue antibiotics until finished Discharge Disposition: HOME SELF-CARE
== END 2025-04-12 10:55 | disposition home or self-care (01) | DRG 249 ==
LOC: EC 12:47 → 5NMEDONC 18:17
PROVIDERS: ADMIT Internal Medicine; ATTEND Internal Medicine
DX: K52.9 Noninfective gastroenteritis and colitis, unspecified (principal); F41.9 Anxiety disorder, unspecified; I11.0 Hypertensive heart disease with heart failure; K31.84 Gastroparesis; J45.909 Unspecified asthma, uncomplicated; E11.43 Type 2 diabetes mellitus with diabetic autonomic (poly)neuropathy; G40.909 Epilepsy, unspecified, not intractable, without status epilepticus; I25.10 Atherosclerotic heart disease of native coronary artery without angina pectoris; Z95.5 Presence of coronary angioplasty implant and graft; I50.22 Chronic systolic (congestive) heart failure; Z79.01 Long term (current) use of anticoagulants; Z79.02 Long term (current) use of antithrombotics/antiplatelets; Z79.51 Long term (current) use of inhaled steroids; Z79.82 Long term (current) use of aspirin; Z79.4 Long term (current) use of insulin; Z79.899 Other long term (current) drug therapy; Z86.718 Personal history of other venous thrombosis and embolism; Z86.73 Personal history of transient ischemic attack (TIA), and cerebral infarction without residual deficits; Z87.442 Personal history of urinary calculi; Z28.310 Unvaccinated for COVID-19; Z28.21 Immunization not carried out because of patient refusal; Z87.01 Personal history of pneumonia (recurrent); Z88.6 Allergy status to analgesic agent; Z88.5 Allergy status to narcotic agent; Z88.0 Allergy status to penicillin; Z88.2 Allergy status to sulfonamides
CPT/HCPCS: 36415; 71045; 80048; 80053; 80306; 81001; 82009; 83036; 83605; 83630; 83690; 83735; 83880; 85025; 87040; 87045; 87046; 87086; 87324; 87328; 87329; 93005; 96361; 96374; 96375; 96376; 99285

== ENCOUNTER → 2025-04-14 | Outpatient (CLI) | payer OTHER ==
[2025-04-14 19:54] LABS: Anion Gap 10.00 mmol/L (4.00-12.00); BUN/Creat Ratio 32.00 Ratio (12.00-20.00); Blood Urea Nitrogen 32.0 mg/dL (9.0-27.0); Calcium 9.1 mg/dL (8.7-10.3); Carbon Dioxide 25.0 mmol/L (21.6-31.8); Chloride 92 mmol/L (96-109); Glucose 534 mg/dL (70-110); Potassium 4.4 mmol/L (3.5-5.5); Sodium 127 mmol/L (135-145)
== END | disposition home or self-care (01) ==
LOC: LABWHC1 12:32
PROVIDERS: ATTEND Nurse Practitioner Family
DX: K31.84 Gastroparesis (principal)
CPT/HCPCS: 36415; 80048